=== PATIENT | male | born 1970 | race Hispanic/Latino ===

== ENCOUNTER 2016-12-16 20:46 | Inpatient (IN) | payer OTHER ==
[~2016-12-16] VITALS: Ht 180.3 cm; Wt 110.2 kg
--- NOTE | 2016-12-16 20:58 | NUR ---
RECEIVED 46 YO MALE WITH HX OF IDDM, C/O HE HAS A BLISTER ON THE BOTTOM OF RIGHT FOOT X 3 DAYS. PT POPPED IT 2 DAYS AGO, AND NOW THE BOTTOM OF RIGHT FOOT IS RED AND DISCOLORED, WITH REDNESS GOING UP RIGHT FOOT. PT REPORTS RIGHT ARM FEELS NUMB AND TINGLING
--- NOTE | 2016-12-16 21:44 | ED GENERAL ADULT ---
History of Present Illness General Chief Complaint: Skin Rash/ Abcess Stated Complaint: R FOOT ?INFECTION,REDNESS TO AREA Source: patient Exam Limitations: no limitations Vital Signs & Intake/Output Vital Signs & Intake/Output Vital Signs Date Time Temp Pulse Resp B/P Pulse O2 O2 Flow FiO2 Ox Delivery Rate 12/160 97.2 110 19 142/86 100 Room Air 12/16 2054 96.8 115 18 139/84 98 Room Air Allergies Coded Allergies: No Known Allergies (12/16/16) Triage Note: RECEIVED 46 YO MALE WITH HX OF IDDM, C/O HE HAS A BLISTER ON THE BOTTOM OF RIGHT FOOT X 3 DAYS. PT POPPED IT 2 DAYS AGO, AND NOW THE BOTTOM OF RIGHT FOOT IS RED AND DISCOLORED, WITH REDNESS GOING UP RIGHT FOOT. PT REPORTS RIGHT ARM FEELS NUMB AND TINGLING Triage Nurses Notes Reviewed? yes HPI: Patient is a 46 year old male with past medical history of diabetes presents complaining of right foot infection, right sided weakness and tingling. Patient noticed blister to the right dorsum of the foot 5 days ago. Patient's popped the blister with purulent/bloody drainage. Redness spreading x 2 days up the foot and into the leg. Patient also reports 2 days of paresthesias and weakness to right upper and lower extremities. Occipital headache x4-5 days. Associated chills. Blood sugar labile today with a high of 500 at home. Patient reports polyuria and polydipsia. Denies fevers. (AMBROSE GLORIA) Past History Travel History Traveled to [place] past 21 day No Medical History Any Pertinent Medical History? see below for history Neurological: NONE EENT: NONE Cardiovascular: NONE Respiratory: NONE Gastrointestinal: NONE Hepatic: NONE Renal: nephrolithiasis, chronic kidney disease Musculoskeletal: NONE Psychiatric: NONE Endocrine: diabetes Surgical History Surgical History: non-contributory Psychosocial History What is your primary language French Tobacco Use: Never used ETOH Use: denies use Illicit Drug Use: denies illicit drug use Family History Hx Contributory? No (AMBROSE GLORIA) Review of Systems Review of Systems Constitutional: Reports: chills. Denies: fever. EENTM: Reports: no symptoms. Respiratory: Denies: cough, short of breath. Cardiovascular: Denies: chest pain. GI: Denies: abdominal pain, nausea, vomiting. Genitourinary: Reports: no symptoms. Musculoskeletal: Reports: no symptoms. Skin: Reports: see HPI. Neurological/Psychological: Reports: see HPI. Hematologic/Endocrine: Reports: polyuria, polydipsia. Immunologic/Allergic: Reports: no symptoms. (AMBROSE GLORIA) Physical Exam Physical Exam General Appearance: well developed/nourished, alert, awake Head: atraumatic, normal appearance Eyes: Bilateral: normal appearance, PERRL, EOMI. Ears, Nose, Throat: normal pharynx, normal ENT inspection, hearing grossly normal Neck: normal inspection, supple, full range of motion, no midline tenderness, no appreciable bruit Respiratory: normal breath sounds, chest non-tender, no respiratory distress, lungs clear Cardiovascular: tachycardia, regular rhythm, no appreciable murmur Peripheral Pulses: 2+ dorsalis pedis (R) Gastrointestinal: soft, non-tender Back: normal inspection, normal range of motion Extremities: 3 cm blister to lateral right foot distal 5th metatarsal, erythema extending from blister to the dorsum of the foot with lymphangitis to anterior mid leg Neurologic/Psych: awake, alert, oriented x 3, 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 left upper and lower extremity 5/5 strength, normal sensation Skin: see extremities exam Core Measures ACS in differential dx? No CVA/TIA Diagnosis: No Severe Sepsis Present: No Septic Shock Present: No (AMBROSE GLORIA) Progress Differential Diagnoses I considered the following diagnoses in my evaluation of the patient: cellulitis , abscess, osteomyelitis, cva, dka, hyperosmolar nonketotic state, hyperglycemia , neuropathies Plan of Care: Orders Procedure Date/time Status Consistent Carbohydrate 3 12/17 B Active CBC WITHOUT DIFFERENTIAL 12/17 06 Active BASIC ELECTROLYTES PLUS BUN&CR 12/17 06 Active LACTIC ACID 12/17 0029 Active Saline Lock 12/16 2324 Active Pathway - chart 12/16 2324 Active House Staff 12/16 2324 Active Patient Data 12/16 2252 Active Saline Lock 12/16 2238 Active Misc Message 12/16 2238 Active ED Holding Orders 12/16 2238 Active Vital Signs 12/16 2238 Active Code Status 12/16 2238 Active Admit to inpatient 12/16 2237 Active TOTAL IRON BINDING CAPACITY 12/17 2139 Active GLYCOSYLATED HGB 12/17 2139 Active FERRITIN 12/17 2139 Active SERUM IRON 12/17 2139 Active MIXED VENOUS BLOOD GAS (GEN) 12/16 2128 Complete FingerStick- Glucose 12/16 2128 Active BLOOD CULTURE 12/16 2128 Active TROPONIN LEVEL 12/16 2128 Active SERUM OSMOLALITY 12/16 2128 Active LACTIC ACID 12/16 2128 Active COMPREHENSIVE METABOLIC PANEL 12/16 2128 Active CBC WITHOUT DIFFERENTIAL 12/16 2128 Complete ACETONE 12/16 2128 Active EKG 12/16 2058 Active Lab Add-on Test 12/16 UNK Active VTE Mechanical Prophylaxis 12/16 UNK Active Heat/Cold Therapy 12/16 UNK Active Current Medications Sig/[place] Start time Last Medication Dose Stop Time Status Admin Senna/Docusate Sodium 1 TAB AT BEDTIME 12/17 2199 UNVr (Senokot S) Acetaminophen 650 MG Q6P PRN 12/16 2329 UNVr (Tylenol) Diphenhydramine HCl 25 MG Q6P PRN 12/16 2329 UNVr (Benadryl) Morphine Sulfate 2 MG Q4P PRN 12/16 2329 UNVr (Morphine) Oxycodone HCl 5 MG Q6H PRN 12/16 2329 UNVr (Roxicodone) Prochlorperazine 10 MG Q6P PRN 12/16 2329 UNVr (Compazine) Docusate Sodium 100 MG BID 12/16 2324 UNVr (Colace) Laboratory Tests 12/16/162139: Bicarbonate Actual 24, Mixed VBG pH 7.46 H, Mixed VBG pCO2 34 L, Mixed VBG O2 Saturation 56 H, Carboxyhemoglobin 1.2 L, O2 Concentration % R/A, Anion Gap 9, Estimated GFR > 60, BUN/Creatinine Ratio 24.3, Glucose 384 H, Hemoglobin A1c Pending, Serum Osmolality 296 H, Lactic Acid 1.3, Calcium 8.8, Iron Pending, TIBC Pending, Ferritin Pending, Total Bilirubin 1.0, AST 26, ALT 36, Alkaline Phosphatase 100, Troponin I < 0.01, Total Protein 7.1, Albumin 3.8, Globulin 3.3 , Albumin/Globulin Ratio 1.2, CBC w Diff NO MAN DIFF REQ, RBC 4.31 L, MCV 89.3, MCH 30.6, RDW 13.6, MPV 11.0 H, Gran % 88.6 H, Lymphocytes % 5.7 L, Monocytes % 4.9, Eosinophils % 0.7, Basophils % 0.1, Absolute Granulocytes 11.5 H, Absolute Lymphocytes 0.7 L, Absolute Monocytes 0.6, Absolute Eosinophils 0.1, Absolute Basophils 0, PUBS MCHC 34.3, Phlebotomy Draw Site VENOUS, Acetone Level NEGATIVE Microbiology 12/16 2249 BLOOD: Blood Culture - RECD 12/16 2237 BLOOD: Blood Culture - RECD Results of labs and imaging discussed with patient. Discussed with Dr. Castaneda. Discussed with Dr. Billy for admission (DONTAE JANSEN,AMBROSE) Diagnostic Imaging: Viewed by Me: Radiology Read, CT Scan. Discussed w/RAD: Radiology Read, CT Scan. Radiology Impression: PATIENT: DORA STUART PRESENT AGE: 46 PATIENT ACCOUNT NO: [id number] : 70 LOCATION: [facility] ORDERING PHYSICIAN: AMBROSE JANSEN SERVICE DATE: 12/16/16 EXAM TYPE: CAT - CT HEAD WO IV CONTRAST EXAMINATION: CT HEAD WITHOUT CONTRAST CLINICAL INFORMATION: Right upper and lower extremity paresthesias. Evaluate for stroke. COMPARISON: No relevant prior imaging available. TECHNIQUE: Contiguous axial imaging was performed from the skull base to vertex without intravenous administration of contrast. DLP: 600.71 mGy-cm FINDINGS: There is no acute intracranial hemorrhage or abnormal extra-axial collection. No intracranial mass effect or midline shift. Lateral and third ventricles are normal. No hydrocephalus. Adams-white matter differentiation is preserved and there is no evidence of acute territorial infarct. The calvarium and skull base are intact. Mastoid air cells and middle ear cavities are well aerated. Visualized paranasal sinuses are well-aerated. IMPRESSION: Unremarkable CT scan of the head. No evidence of acute territorial infarct or hemorrhage. DICTATED BY: JIMMIE FERRARA MD DATE/TIME DICTATED:12/16/162241 TRAIN RESERVATION CLERK:NOAM DATE/ TIME TRANSCRIBED:12/16/162241 CONFIDENTIAL, DO NOT COPY WITHOUT APPROPRIATE AUTHORIZATION. <Electronically signed in Other Vendor System> SIGNED BY: JIMMIE FERRARA MD 12/16/162246, PATIENT: DORA STUART PRESENT AGE: 46 PATIENT ACCOUNT NO: [id number] : 70 LOCATION: [facility] ORDERING PHYSICIAN: AMBROSE JANSEN SERVICE DATE: 12/16/16 EXAM TYPE: RAD - XRY-FOOT COMPLETE, R EXAMINATION: XR FOOT, RIGHT CLINICAL INFORMATION: Right foot infection. COMPARISON: No relevant prior imaging available. TECHNIQUE: AP, lateral, and oblique views of the right foot. FINDINGS : There is no acute fracture or dislocation. No worrisome lytic changes to suggest osteomyelitis. Joint spaces are maintained. There is mild nonspecific soft tissue swelling within the distal foot. Monckeberg-type medial arterial vascular calcifications are visualized within the foot indicating a history of diabetes. Mild calcaneal spurring is noted. No retained radiodense foreign body is visualized within the [id number] this examination. IMPRESSION: No evidence of acute fracture or dislocation. Mild swelling of the distal foot. No evidence of worrisome lytic changes to suggest osteomyelitis. DICTATED BY: JIMMIE FERRARA MD DATE/TIME DICTATED:12/16/162238 TRAIN RESERVATION CLERK:NOAM DATE/ TIME TRANSCRIBED:12/16/162238 CONFIDENTIAL, DO NOT COPY WITHOUT APPROPRIATE AUTHORIZATION. <Electronically signed in Other Vendor System> SIGNED BY: JIMMIE FERRARA MD 12/16/162244 Initial ED EKG: Sinus tachycardia 110 bpm, normal axis, normal intervals, no acute st/t wave abnormalities (AMBROSE GLORIA) Departure Departure Time of Disposition: 2243 Disposition: STILL A PATIENT Condition: Stable Clinical Impression Primary Impression: Cellulitis of foot, right Secondary Impressions: Hyperglycemia Referrals: PATIENT HAS NO PRIMARY CARE DR (PCP/Family) Departure Forms: Customer Survey General Discharge Information Admission Note Spoke With: CANDI COLLAZO,JANET Documentation of Exam: Documentation of any treatments & extenuating circumstances including Concerns Regarding Discharge (functional status, medication knowledge or non-compliance, living conditions, etc.) that warrant an admission rather than observation: IV antibiotics, blood sugar control. podiatry/wound care consultation. Patient a poorly controlled diabetic with no established doctor. Concern that with his poorly controlled diabetes and lack of follow up that he will worsen if discharged. (AMBROSE GLORIA) PA/PROBE OPERATOR Co-Sign Statement Statement: ED Attending supervision documentation- [] I saw and evaluated the patient. I have also reviewed all the pertinent lab results and diagnostic results. I agree with the findings and the plan of care as documented in the PA's/PROBE OPERATOR's documentation. [x] I have reviewed the ED Record and agree with the PA's/PROBE OPERATOR's documentation. [] Additions or exceptions (if any) to the PAs/PROBE OPERATOR's note and plan are summarized below: [] (SOTO COLLAZO,MATTHIEU Andrews) Critical Care Note Critical Care Note Critical Care Time: non-applicable (DONTAE JANSEN,AMBROSE)
[2016-12-16 22:01] LABS: ABSOLUTE BASOPHIL COUNT 0 /CUMM (0.0-0.2); ABSOLUTE EOSINOPHIL COUNT 0.1 /CUMM (0.0-0.7); ABSOLUTE GRANULOCYTE CT 11.5 /CUMM (1.4-6.5); ABSOLUTE LYMPH COUNT 0.7 /CUMM (1.2-3.4); ABSOLUTE MONOCYTE COUNT 0.6 /CUMM (0.10-0.60); BASOPHIL % 0.1 % (0.0-2.0); EOSINOPHIL % 0.7 % (0-5); HEMATOCRIT 38.5 % (42-52); MEAN CORPUSCULAR HGB 30.6 PG (27.0-31.0); MEAN CORPUSCULAR HGB CONC 34.3 G/DL (33.0-37.0); MEAN CORPUSCULAR VOLUME 89.3 FL (80.0-94.0); PLATELET COUNT 96 /CUMM (130-400); RBC DISTRIBUTION WIDTH 13.6 % (11.5-14.5); RED BLOOD CELL CT 4.31 /CUMM (4.70-6.10)
[2016-12-16 22:19] LABS: GRANULOCYTE % 88.6 % (42.2-75.2)
--- NOTE | 2016-12-16 22:35 | NUR ---
FIRST SET OF BLOOD CX'S DRAWN
--- NOTE | 2016-12-16 22:45 | RADIOLOGY REPORT ---
EXAMINATION: XR FOOT, RIGHT CLINICAL INFORMATION: Right foot infection. COMPARISON: No relevant prior imaging available. TECHNIQUE: AP, lateral, and oblique views of the right foot. FINDINGS: There is no acute fracture or dislocation. No worrisome lytic changes to suggest osteomyelitis. Joint spaces are maintained. There is mild nonspecific soft tissue swelling within the distal foot. Monckeberg-type medial arterial vascular calcifications are visualized within the foot indicating a history of diabetes. Mild calcaneal spurring is noted. No retained radiodense foreign body is visualized within the [id number] this examination. IMPRESSION: No evidence of acute fracture or dislocation. Mild swelling of the distal foot. No evidence of worrisome lytic changes to suggest osteomyelitis.
--- NOTE | 2016-12-16 22:47 | CT SCAN REPORT ---
EXAMINATION: CT HEAD WITHOUT CONTRAST CLINICAL INFORMATION: Right upper and lower extremity paresthesias. Evaluate for stroke. COMPARISON: No relevant prior imaging available. TECHNIQUE: Contiguous axial imaging was performed from the skull base to vertex without intravenous administration of contrast. DLP: 600.71 mGy-cm FINDINGS: There is no acute intracranial hemorrhage or abnormal extra-axial collection. No intracranial mass effect or midline shift. Lateral and third ventricles are normal. No hydrocephalus. Adams-white matter differentiation is preserved and there is no evidence of acute territorial infarct. The calvarium and skull base are intact. Mastoid air cells and middle ear cavities are well aerated. Visualized paranasal sinuses are well-aerated. IMPRESSION: Unremarkable CT scan of the head. No evidence of acute territorial infarct or hemorrhage.
--- NOTE | 2016-12-16 22:53 | History & Physical ---
MELBA COLLAZO,STACIA 12/16/16 2253: General Information and [facility] MD Statement: I have seen and personally examined DORA STUART and documented this H&P. The patient is a 46 year old M who presented with a patient stated chief complaint of [CELLULITIS]. Source of Information: patient Exam Limitations: no limitations History of Present Illness: This is a 46-year-old male with past medical history for type 2 diabetes, ? hypothyroidism, ?kidney disease who comes in with chief complaint of right lower extremity erythema and tenderness. Patient states that a few days ago he stepped on nail, developed a blister in his right lower extremity and 2 days ago his used a needle to pop the blister and express purulence within. He states that the following day he noted some erythema and tenderness to that area. But on day of admission he noted significantly spreading erythema, and worsening tenderness. Patient states that he has bilateral peripheral neuropathy and he has decreased sensation, which is why he was surprised when he felt pain in his right lower extremity. He has not followed up with a medical provider since last July and states he has run out of many of his medications for the past 3 months. Particularly, he states that he has run out of his long-acting insulin and Victoza. He states that he is only taking his mealtime insulin but that he is taking 30 units 1 at nighttime. He has noted his blood sugars for the past 3 months to range anywhere from 300-500+. He says frequently his monitor is unable to quantify his blood sugars. He endorses polyuria, polydipsia an 80 pound weight loss in the past 8 months. He denies any chest pain, shortness of breath, headache, nausea, vomiting, diarrhea, abdominal or abdominal pain. He does endorse numbness and paresthesias in his right upper and lower extremity. He states the paresthesias and numbness started after his opened the blister. There have been getting worse the past 2 days. He notes that the paresthesias are worst in his palm and the extent to his elbow. Paresthesias in lower extremity are predominantly in his foot and gradually fade towards his knee. Allergies/Medications Allergies: Coded Allergies: No Known Allergies (12/16/16) Home Med list Insulin Detemir (Levemir Flextouch) 100 UNIT/ML (3 ML) INSULN.PEN 100 UNITS SC BEDTIME DM (Reported) Insulin Lispro (Humalog Kwikpen U-100) 100 UNIT/ML INSULN.PEN 10 UNITS SC TID DM (Reported) Pregabalin (Lyrica) 150 MG CAPSULE 1 CAP PO BID NERVE DAMAGE (Reported) Compliance With Home Meds: POOR Past History Travel History Traveled to [place] past 21 day No Medical History Neurological: NONE EENT: NONE Cardiovascular: NONE Respiratory: NONE Gastrointestinal: NONE Hepatic: NONE Renal: nephrolithiasis, chronic kidney disease, hypothyroid Musculoskeletal: NONE Psychiatric: NONE Endocrine: diabetes Surgical History Surgical History: non-contributory Past Family/Social History Psychosocial History ETOH Use: denies use Illicit Drug Use: denies illicit drug use Functional Ability ADLs Independent: dressing, eating, toileting, bathing. Ambulation: independent IADLs Independent: shopping, housework, finances, food prep, telephone, transportation , medication admin. Review of Systems Review of Systems Constitutional: Reports: chills, malaise. Denies: diaphoresis, fever. EENTM: Denies: blurred vision, visual changes. Cardiovascular: Denies: chest pain, orthopena, palpitations, peripheral edema. Respiratory: Denies: cough, short of breath, wheezing. GI: Denies: abdominal pain, diarrhea. Genitourinary: Reports: frequency. Musculoskeletal: Reports: muscle pain, muscle stiffness. Skin: Reports: change in skin color, erythema, lesions, rash. Neurological/Psychological: Reports: no symptoms. Exam & Diagnostic Data Last 24 Hrs of Vital Signs/I&O Vital Signs Date Time Temp Pulse Resp B/P Pulse O2 O2 Flow FiO2 Ox Delivery Rate 12/17 0020 97.3 96 18 132/78 98 Room Air 12/16 2359 Room Air 12/16 2350 97.3 98 18 127/80 98 Room Air 12/160 97.2 110 19 142/86 100 Room Air 12/16 2054 96.8 115 18 139/84 98 Room Air Intake & Output 12/17 0800 12/17 0000 12/16 1600 Intake Total 1000 Output Total Balance 1000 Intake, IV 1000 Patient 110.223 kg 110.223 kg Weight Physical Exam General Appearance Alert, Oriented X3, Cooperative, No Acute Distress Skin patient has erythema, induration and swelling of his right lower extremity, particularly underneath his fifth MTP. In an attempt to express purulence, patient has significant tenderness. He has trach he erythema extending from the dorsal aspect of his foot towards his calf. HEENT Atraumatic, PERRLA, EOMI Neck Supple Cardiovascular Regular Rate, Normal S1, Normal S2, No Murmurs Lungs Normal Air Movement Abdomen Soft, No Tenderness Neurological Normal Speech, Strength at 5/5 X4 Ext, decreased sensation in both lower extremities Extremities see skin above Last 24 Hrs of Labs/Pelon: Laboratory Tests 12/16/160: Bicarbonate Actual 24, Mixed VBG pH 7.46 H, Mixed VBG pCO2 34 L, Mixed VBG O2 Saturation 56 H, Carboxyhemoglobin 1.2 L, O2 Concentration % R/A, Anion Gap 9, Estimated GFR > 60, BUN/Creatinine Ratio 24.3, Glucose 384 H, Hemoglobin A1c Pending, Serum Osmolality 296 H, Lactic Acid 1.3, Calcium 8.8, Iron 34 L, TIBC 238 L, Ferritin 194.0, Total Bilirubin 1.0, AST 26, ALT 36, Alkaline Phosphatase 100, Troponin I < 0.01, Total Protein 7.1, Albumin 3.8, Globulin 3.3 , Albumin/Globulin Ratio 1.2, CBC w Diff NO MAN DIFF REQ, RBC 4.31 L, MCV 89.3, MCH 30.6, RDW 13.6, MPV 11.0 H, Gran % 88.6 H, Lymphocytes % 5.7 L, Monocytes % 4.9, Eosinophils % 0.7, Basophils % 0.1, Absolute Granulocytes 11.5 H, Absolute Lymphocytes 0.7 L, Absolute Monocytes 0.6, Absolute Eosinophils 0.1, Absolute Basophils 0, PUBS MCHC 34.3, Phlebotomy Draw Site VENOUS, Acetone Level NEGATIVE Microbiology 12/16 2249 BLOOD: Blood Culture - RECD 12/16 2237 BLOOD: Blood Culture - RECD Assessment/Plan Assessment: This is a 46-year-old noncompliant type II diabetic with significant past medical hx for neuropathy, questionable CKD and thyroid disorder who recently instrumented a "blister" with resulting cellulitis. Plan Sepsis 2/2 Cellulitis: He meets sepsis criteria with white count and tachycardia. However he is afebrile. His lower extremity is erythematous, tender to touch, warm, with evidence of possible pus under his fifth MTP. As he stated he stepped on a nail and his did instrument the blister with a needle, there is concern for covering tetanus. Given new onset tingling and numbness there was initially concern for intracranial pathology such as CVA. Workup negative. Likely his paresthesias and numbness are secondary to worsening diabetic neuropathy and pain secondary to infection. * Blood cultures * Unasyn * If patient does not improve consider I/D * Tetanus/diphtheria toxoid administered * Pending administration of tetanus immune globulin * Negative lactic acid Diabetes: Patient has been noncompliant with his home regimen as he followed up with a primary care physician in several months. DKA workup negative. Patient slightly hyperosmolar w/ serum osmolality 296. Pt has 80 lb unintentional lb loss; likely 2/2 poor management of DM but needs he needs further work up to rule out other concerning etiologies. * Fingerstick * Sliding scale * IV fluids * Levemir * Lyrica * Follow-up A1c Thrombocytopenia: Platelet count at 96. * Continue to monitor. * avoid heparin ppx Hyponatremia: Patient has sodium 130; however corrected for his blood sugar at 384 actual Na is 134. * Continue to monitor BEP Anemia: Hemoglobin 13.2 and hematocrit 38.5. * Follow-up iron panel * coags * guiac * smear Hypothyroid: Pt told me he has hx of hypothyroidism but is not sure of his work up. No meds on board. However in view of his 80 lb unintentional weight loss further thyroid work up warranted. * TSH * T4 Full code Diabetic diet Chemical DVT prophylaxis As Ranked By This Provider Problem List: 1. Cellulitis of foot, right 2. Hyperglycemia Core Measures/Miscellaneous Acute Coronary Syndrome ACS Diagnosis: No Cerebrovascular Accident CVA/TIA Diagnosis: No Congestive Heart Failure CHF Diagnosis: No Venous Thromboembolism VTE Risk Factors: Acute medical illness, Age > 40 [facility] d/t: No contraindications No VTE Pharm Prophylaxis d/t: No contraindications VTE Diagnosis: No VTE Type: NONE VTE Confirmed by (Test): NONE Severe Sepsis Severe Sepsis Present: No Septic Shock Septic Shock Present: No Miscellaneous Documentation Attending Case Discussed With: CANDI COLLAZO,ZAYShelbi Primary Care Physician: PATIENT HAS NO PRIMARY CARE DR Patient sees these Specialists UNKNOWN Level of Patient Care: General Medicine MAXIM COLLAZO,[facility] 12/16/16 2318: Resident Review Statement Resident Statement: examined this patient, discussed with public relations intern, agreed with public relations intern, discussed with family, reviewed EMR data (avail), discussed with nursing , discussed with case mgmt, reviewed images, amended to note Other Findings: Dora is a 46-year-old man with a medical history of type 1 diabetes, chronic kidney disease obesity kidney stones, chronic pain. Presents with progressive erythema on her right foot after he developed blisters 3 days ago, and then his subsequently ruptured blister about 2 days ago. He also endorses some right-sided numbness and tingling in the arm. He reports level blood sugars in recent days as well as polyuria and polydipsia.. At present he is afebrile temperature is 97.2F, he is tachycardic with heart rate ranging from 110-115 bpm, tachypnea respiratory rate of 20. Blood pressure is 142/86 mmHg, and he is 100% on room air. Labs notable for elevated white count 13,000, hemoglobin of 13 with MCV of 89. Thrombocytopenia with platelets of 96,000. Glucose elevated at 384. Stones are negative. CAT scan of the head did not demonstrate any acute infarct. X-ray of the foot did demonstrate mild soft tissue swelling suggestive of cellulitis in the distal foot; no evidence of acute fracture or dislocation of the joint. Additionally there is are no radiographic changes suggestive of osteomyelitis. - Problems - Cellulitis Type 2 Diabetes Thrombocytopenia Plan: Unasyn 3 g every 6 hours Tetanus toxoid and Immunoglobulin Await blood cultures Levemir 10U to use every 12 hours NovoLog sliding scale with 7 units pre-meal insulin Check hemoglobin A1c Avoid heparin products - low plts. DVT prophylaxis Alps Full code CANDI COLLAZO, [facility] 12/16/16 4273: Attending MD Review Statement Attending Statement Attending MD Statement: examined this patient, discuss w/resident/PA/INSTRUCTOR PAINTING, agreed w/resident/PA/INSTRUCTOR PAINTING Attending Assessment/Plan: 46 yo obese M with uncontrolled T1DM, hypothyroidism, ?CKD from diabetes, is here with right foot cellulitis. Patient recently moved from [place] about 5 weeks back, and has no PCP. He is on disability and reports he did not refill levemir and thyroid meds for over 2 months. His sugars have been over 500. He recollects his right foot (lateral aspect) being struck by a nail while doing yard work last week, then about 5 days back he noted a blister which his tried to pop out and noticed purulent drainage. He also has been walking long distances as he did not have a car until now. Chills+. Over past two day, he developed erythema and swelling to the right foot, with pain extending into his leg. Of note, he has peripheral neuropathy and is supposed to be on lyrica. He c /o right hand tingling and numbness. Vitals stable, except for tachycardia. Labs: WBC 13, Plt 96 (no baseline available), Na 130, glucose 384, not in DKA. Head CT neg. Foot Xray: no fracture , nothing to suggest osteomyelitis. EKG: Sinus tachycardia. Admitting for sepsis (leukocytosis, tachycardia) 2/2 right foot cellulitis. Panculture, elevated right foot, IV Unasyn, await blood cultures to taper antibiotics. Tetanus toxoid. Thrombocytopenia 2/2 sepsis. Check coags and smear. Uncontrolled diabetes accucheks, resume levemir and novolog. Check HbA1c. Consider Endo consult if blood sugars persistently high. DVT ppx Alps. Full code. Please confirm his meds and restart.
--- NOTE | 2016-12-16 23:30 | NUR ---
Emergency Dept [facility] Admit Note: To be admitted to [facility] by DR. CHRISTOPHER with CELLULITITS as the diagnosis, [id number]. Nursing Computer Service Technician and admitting notified 12/16/16 at 230
[2016-12-16] MEDS ORDERED: LYRICA150 M1 PO (23:52)
[2016-12-16] MEDS ORDERED: LEVEMIR FL100 UNIT/1 SC (23:53)
[2016-12-16] MEDS ORDERED: HUMALOG KW100 UNIT/1 SC (23:53)
--- NOTE | 2016-12-16 23:53 | Admission Certification ---
Admission Certification Certification Statement - As attending physician, I certify that at the time of - admission, based on clinical presentation, severity of - symptoms, need for further diagnostic testing and - therapeutic interventions, and risk of adverse outcomes - without in-hospital treatment, in my clinical assessment, - this patient requires an acute hospital stay for a minimum - of two nights or longer. I have also considered psychsocial - factors such as support system, advanced age, financial - issues, cognitive issues, and failed out-patient treatments, - past re-admission history, safety of patient, and lack of - compliance as applicable. Specific rationale supporting this admission is: Sepsis 2/2 right foot cellulitis, uncontrolled diabetes.
--- NOTE | 2016-12-16 23:58 | NUR ---
PATIENT EVALUATED BY HOUSE STAFF, CELLULITIS ON R FOOT/ANKLE/HUNTER MARKED W/ SKIN MARKER BY HOUSE STAFF. SITE REMAINS HOT TO TOUCH AND RED, NO SKIN BREAKDOWN NOTED. ASSESSMENT COMPLETED BY THIS RN, PATIENT ALERT AND ORIENTED X 3, PAIN 9/10 AT THIS TIME, AWARE OF PERCOCET ORDER, AGREEABLE TO PERCOCET.
--- NOTE | 2016-12-17 00:13 | NUR ---
SPOKE W/ ENRIKE EVENING RN, PER ENRIKE, PATIENT WAS MEDICATED W/ INSULIN PER EMAR AT SCHEDULLED TIME.
--- NOTE | 2016-12-17 00:19 | NUR ---
PATIENT CHANGING INTO GOWN AT THIS TIME.
[2016-12-17 00:20] VITALS: BP 132/78
--- NOTE | 2016-12-17 00:20 | NUR ---
REPORT RECIEVED FROM MERRICK ROQUE IN ED. PT ARRIVED TO FLOOR VIA WHEELCHAIR VIA DISTRIBUTION. ON ROOM AIR. STATES PAIN IS WELL CONTROLLED AT THIS TIME. VSS. REDNESS TO R FOOT, ANKLE, AND HUNTER, MARKED WITH SKIN MARKER IN THE ED. SKIN IS INTACT. ORIENTED PT TO ROOM AND CALL BUTTON, WILL CONTINUE TO MONITOR.
--- NOTE | 2016-12-17 00:24 | NUR ---
REPORT CALLED TO KELTON ROQUE ON FLOOR.
--- NOTE | 2016-12-17 00:28 | NUR ---
PATIENT AMBULATORY TO BATHROOM W/ STABLE GAIT NOTED.
[2016-12-17 06:52] VITALS: BP 127/78
--- NOTE | 2016-12-17 07:46 | PN- Housestaff ---
WALDO GONZALEZ MD 12/17/16 0745: Subjective Follow-up For: Right lower extremity puncture wound Right lower extremity cellulitis Subjective: Patient seen and examined. He is seen resting comfortably sitting in bed. He Appears to be in no acute distress. He reports sleeping well last night but admits to waking up feeling cool/clammy that he attributes to his sugars possibly being "highs/low". He denies any pain in the right lower extremity, but admits to extensive peripheral neuropathy. He believes the rash appears better today and denies any previous purulent drainage. Additionally he denies any blurred/double vision, lightheadedness/dizziness, headache, fever, chills, chest pain, palpitations, shortness breath, cough, nausea, vomiting, diarrhea, new numbness/tingling. No overnight events reported. Review of Systems Constitutional: Reports: see HPI. Objective Last 24 Hrs of Vital Signs/I&O Vital Signs Date Time Temp Pulse Resp B/P Pulse O2 O2 Flow FiO2 Ox Delivery Rate 12/17 0943 98.8 12/17 0755 99.4 12/17 0755 99.4 12/17 0721 100.0 12/17 0652 99.2 85 20 127/78 95 12/17 0020 97.3 96 18 132/78 98 Room Air 12/16 2359 Room Air 12/16 2351 97.3 98 18 127/80 98 Room Air 12/16 2250 97.2 110 19 142/86 100 Room Air 12/16 2055 96.8 115 18 139/84 98 Room Air Intake & Output 12/17 1600 12/17 0800 12/17 0000 Intake Total 1430 Output Total Balance 1430 Intake, IV 1130 Intake, Oral 300 Patient 110.223 kg 110.223 kg Weight Physical Exam General Appearance: Alert, Oriented X3, Cooperative, No Acute Distress Other Physical Findings: General -well-developed, well-nourished middle-aged man in no acute distress HEENT - NCAT, PERRL, EOMI, anicteric sclera Cardio - S1, S2 w/o murmurs/gallops/rubs Resp -normal airflow bilaterally, right-sided inspiratory wheezing GI - soft, nontender, nondistended, bowel sounds present Neuro - Awake and alert, CN II - XII grossly intact Extremities -normal pulses, no cyanosis/clubbing/edema, right lower extremity with extensive tracking erythematous/indurated rash surrounded with skin marker and no obvious drainage, small well-healed puncture wound without any obvious retained material, no deformity Current Medications: Current Medications Sig/[place] Start time Last Medication Dose Route Stop Time Status Admin Acetaminophen 650 MG Q6P PRN 12/16 2330 AC 12/17 PO 0721 Ampicillin Sodium/ 3,000 MG Q6 12/17 0600 DC 12/17 Sulbactam Sodium IV 1140 Sodium Chloride 100 ML Ampicillin Sodium/ 0 .STK-MED ONE 12/16 2254 DC Sulbactam Sodium .ROUTE Ampicillin Sodium/ 3,000 MG ONCE ONE 12/160 DC 12/16 Sulbactam Sodium IV 12/16 2228 2300 Sodium Chloride 100 ML Ceftazidime 1,000 MG IQ8 12/17 1600 AC IV Diphenhydramine HCl 25 MG Q6P PRN 12/16 2330 AC IV Docusate Sodium 100 MG BID 12/16 2325 AC PO Influenza Virus 0.5 ML ONCE ONE 12/17 1000 DC Vaccine IM 12/17 1001 Insulin Aspart 0 TIDAC 12/17 0800 AC 12/17 SC 1301 Insulin Detemir 10 UNITS BID 12/17 1000 AC 12/17 SC 0800 Insulin Human Regular 8 UNITS ONCE ONE 12/16 2230 DC 12/16 SC 12/16 223 2300 Morphine Sulfate 2 MG Q4P PRN 12/16 2330 AC IV Oxycodone HCl 5 MG Q6P PRN 12/16 2330 AC 12/17 PO 0635 Oxycodone/ 0 .STK-MED ONE 12/17 0029 DC Acetaminophen PO Oxycodone/ 1 TAB ONCE ONE 12/16 2315 DC 12/17 Acetaminophen PO 12/16 2316 0028 Patient Medication 1 ED .STK-MED ONE 12/17 1403 DC Teaching ED 12/17 1404 Potassium Chloride 40 MEQ ONCE ONE 12/17 1345 DC PO 12/17 1346 Pregabalin 150 MG BID 12/17 0001 AC 12/17 PO 0800 Prochlorperazine 10 MG Q6P PRN 12/16 2330 AC IV Senna/Docusate Sodium 1 TAB AT BEDTIME 12/17 2200 AC PO Sodium Chloride 1,000 ML BOLUS ONE 12/16 2130 DC 12/16 IV 12/16 2228 2300 Tetanus Immune 500 UNITS ONCE ONE 12/17 14 DC Globulin IM 12/17 001 Tetanus/Diphtheria 0.5 ML ONCE ONE 12/17 14 DC 12/17 Toxoids Adsorbed IM 12/18 15 0258 Last 24 Hrs of Lab/Pelon Results Last 24 Hrs of Labs/Mics: Laboratory Tests 12/17/16 0712: Lactic Acid 1.0 12/17/16 0712: Anion Gap 8, Estimated GFR > 60, BUN/Creatinine Ratio 17.5, TSH 5.610 H, Thyroxine (T4) 8.2, CBC w Diff NO MAN DIFF REQ, RBC 3.98 L, MCV 89.7, MCH 30.5, RDW 13.6, MPV 10.5 H, Gran % 78.8 H, Lymphocytes % 12.8 L, Monocytes % 5.7, Eosinophils % 2.4, Basophils % 0.3, Absolute Granulocytes 6.7 H, Absolute Lymphocytes 1.1 L, Absolute Monocytes 0.5, Absolute Eosinophils 0.2, Absolute Basophils 0, PUBS MCHC 34.0 12/16/16 2140: Bicarbonate Actual 24, Mixed VBG pH 7.46 H, Mixed VBG pCO2 34 L, Mixed VBG O2 Saturation 56 H, Carboxyhemoglobin 1.2 L, O2 Concentration % R/A, Anion Gap 9, Estimated GFR > 60, BUN/Creatinine Ratio 24.3, Glucose 384 H, Hemoglobin A1c 11.0 H, Serum Osmolality 296 H, Lactic Acid 1.3, Calcium 8.8, Iron 34 L, TIBC 238 L, Ferritin 194.0, Total Bilirubin 1.0, AST 26, ALT 36, Alkaline Phosphatase 100, Troponin I < 0.01, Total Protein 7.1, Albumin 3.8, Globulin 3.3 , Albumin/Globulin Ratio 1.2, CBC w Diff NO MAN DIFF REQ, RBC 4.31 L, MCV 89.3, MCH 30.6, RDW 13.6, MPV 11.0 H, Gran % 88.6 H, Lymphocytes % 5.7 L, Monocytes % 4.9, Eosinophils % 0.7, Basophils % 0.1, Absolute Granulocytes 11.5 H, Absolute Lymphocytes 0.7 L, Absolute Monocytes 0.6, Absolute Eosinophils 0.1, Absolute Basophils 0, PUBS MCHC 34.3, Phlebotomy Draw Site VENOUS, Acetone Level NEGATIVE Microbiology 12/16 2249 BLOOD: Blood Culture - RES 12/16 2237 BLOOD: Blood Culture - RES Assessment/Plan Assessment: Patient has improved leukocytosis while maintained on intravenous Unasyn. He remains afebrile overnight. Given his history of present illness that he stepped on a nail that penetrated a rubber shoe is Unasyn was discontinued and converted to venous ceftazidime for pseudomonal coverage. An MRI of his right foot will be obtained to further characterize any possible retained material, occult fracture, or dissemination of infection to the bone such as osteomyelitis. His platelets are low for which he is being followed off of subcutaneous heparin, DVT prophylaxis is also being deferred for his right lower extremity swelling/active infection. Ambulation is being encouraged as to defer any development of a deep venous thrombosis. Right lower extremity cellulitis Patient reports this past Thursday (12/14/16) stepping on a shelli nail that penetrated his rubber sandal and pierced his foot approximately 1.5 cm. He reports walking "about 3 miles" after this happened and subsequently developing associated blistering. His reportedly drained the blisters with a sterile safety pin. Patient initially started on Unasyn prior to being converted to Fortaz. Patient received tetanus vaccination and intravenous immunoglobulin. -General medicine -Unasyn discontinued -Ceftazidime 1 g IV every 8 hours -Follow-up blood cultures -Follow-up MRI foot Sepsis: Resolved Patient meets criteria for sepsis upon initial evaluation with leukocytosis and elevated temperature with the suspected location of infection being the right lower extremity cellulitis. Lactic acid was normal. Patient received 1 L of normal saline. Insulin-dependent diabetes mellitus/diabetic peripheral neuropathy Patient was reportedly receiving his hypoglycemic medications for PCP in [place] , however has run out of many of his medications and has been taking them off schedule. -Accu-Cheks 3 times a day before meals/at bedtime -Hold oral hypoglycemics -NovoLog sliding scale insulin -Levemir 10 units SC twice a day -Pregabalin 150 mg by mouth twice a day -HbA1c: 11.0 Pain plan-acetaminophen/oxycodone/morphine Diet-Diabetic diet DVT prophylaxis-ambulation, contraindication to pharmacologic/mechanical CODE STATUS-full code Problem List: 1. Cellulitis of foot, right Pain Ratin Pain Location: None Pain Goal: Remain pain free Pain Plan: As noted in plan Tomorrow's Labs & Rationales: CBC - cellulitis OLEG ARREDONDO MD 12/17/162044: Attending MD Review Statement Attending Statement Attending MD Statement: examined this patient, discuss w/resident/PA/PILOT BOAT OPERATOR, agreed w/resident/PA/PILOT BOAT OPERATOR, reviewed EMR data (avail), discussed with nursing, reviewed images, amended to note Attending Assessment/Plan: The patient was seen and discussed with house staff. Agree with the plan of care as outlined. The patient had nail injury through rubber sole of sandal and thus need to consider Pseudomonas as possible pathogen. Antibiotic changed as noted. MRI showing marked soft tissue edema w/o abscess or osteomyelitis. Patient has diabetic neuropathy and will obtain Podiatry consult from Dr. Gandhi for OP follow-up. Continue current care and follow foot exam.
[2016-12-17 08:13] LABS: ABSOLUTE BASOPHIL COUNT 0 /CUMM (0.0-0.2); ABSOLUTE EOSINOPHIL COUNT 0.2 /CUMM (0.0-0.7); ABSOLUTE GRANULOCYTE CT 6.7 /CUMM (1.4-6.5); ABSOLUTE LYMPH COUNT 1.1 /CUMM (1.2-3.4); ABSOLUTE MONOCYTE COUNT 0.5 /CUMM (0.10-0.60); BASOPHIL % 0.3 % (0.0-2.0); EOSINOPHIL % 2.4 % (0-5); GRANULOCYTE % 78.8 % (42.2-75.2); HEMATOCRIT 35.7 % (42-52); MEAN CORPUSCULAR HGB 30.5 PG (27.0-31.0); MEAN CORPUSCULAR VOLUME 89.7 FL (80.0-94.0); MEAN PLATELET VOLUME 10.5 FL (7.4-10.4); PLATELET COUNT 83 /CUMM (130-400); RBC DISTRIBUTION WIDTH 13.6 % (11.5-14.5); RED BLOOD CELL CT 3.98 /CUMM (4.70-6.10); WHITE BLOOD CELL COUNT 8.4 /CUMM (4.8-10.8)
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
--- NOTE | 2016-12-17 14:27 | NUR ---
NURSING NOTE: PT LEFT FLOOR VIA STRETCHER WITH DISTIRBUTION FOR MRI OF FOOT PER MD ORDER. PT AWAKE, A/OX3, IV PATENT SL. PT DENIES COMPLAINTS. CONT TO MONITOR. AWAIT RETURN TO FLOOR, WILL GIVE REPORT TO NEXT SHIFT RN. TICKET TO RIDE COMPLETE.
[2016-12-17 14:40] VITALS: BP 104/60
--- NOTE | 2016-12-17 15:15 | NUR ---
NURSING NOTE: PT BACK TO FLOOR VIA STRETCHER WITH DISTRIUTION FROM MRI, SETTLED INTO BED, WILL MEDICATE FOR PAIN, DENIES OTHER COMPLAINTS
--- NOTE | 2016-12-17 15:28 | NUR ---
NURSING NOTE: TETATUS GLOBULIN GIVEN PER MD ORDER. 2 SYRINGES OF 250UNITS GIVEN, ONE TO RIGHT DELTOID, ONE TO LEFT DELTOID, PT TOLERATED WELL. CONT TO MONITOR
--- NOTE | 2016-12-17 17:30 | MRI REPORT ---
EXAMINATION: MRI RIGHT FOOT WITHOUT CONTRAST CLINICAL INFORMATION: Status post puncture wound with nail. Right lower extremity cellulitis. COMPARISON: 12/16/2016 (radiographs). TECHNIQUE: Multiplanar MR imaging was obtained through the right foot without contrast material on a 1.5 Jennifer magnet. Examination is somewhat limited by patient motion. Multiple sequences were repeated. FINDINGS: Marked subcutaneous edema signal and soft tissue swelling are present at the dorsum of the forefoot and midfoot. No discrete fluid collections are identified. There is edema signal and mild atrophy within the intrinsic foot musculature, most typical of diabetes. Bone marrow signal is normal. No areas of intraosseous edema are identified. Sensitivity for small foci of intramedullary edema is limited by the motion artifact. No joint effusions. No general fluid collections are identified. Tendons are intact. No tenosynovitis. Plantar fascia is unremarkable. No metallic foreign bodies are identified. IMPRESSION: Marked subcutaneous edema and soft tissue swelling at the dorsum of the right forefoot. No evidence of underlying osteomyelitis or abscess. Sensitivity for small abnormalities is limited by the motion artifact.
[2016-12-17 21:52] VITALS: BP 118/78
--- NOTE | 2016-12-17 22:58 | NUR ---
ALERT AND ORIENTED X 3. VITAL SIGNS STABLE. DENIES CHEST PAIN. + PULSES ON ROOM AIR. STEADY GAIT. REDNESS NOTED TO R FOOT. MEDICATION GIVEN FOR PAIN. PATIENT RESTING COMFORTABLY AT THIS TIME. WILL CONTINUE TO MONITOR
[2016-12-18 07:09] VITALS: BP 110/74
--- NOTE | 2016-12-18 07:13 | PN- Housestaff ---
WALDO GONZALEZ MD 12/18/16 0713: Subjective Follow-up For: Right lower extremity cellulitis Right lower extremity puncture wound Subjective: Patient seen and examined. He is seen lying upright in bed resting comfortably. He appears to be in no acute distress. He reports that his foot appears to be well-healing with the rash markedly improved since Thursday. He reports that overnight the blister on the right lateral aspect of his foot spontaneously drained a clear serosanguineous fluid. He reports minimal pain in the right lower extremity. Otherwise she denies any headache, fever, chills, chest pain, palpitations, shortness breath, cough, nausea, vomiting, diarrhea. No overnight events reported. Review of Systems Constitutional: Reports: see HPI. Objective Last 24 Hrs of Vital Signs/I&O Vital Signs Date Time Temp Pulse Resp B/P Pulse O2 O2 Flow FiO2 Ox Delivery Rate 12/18 1413 98.5 12/18 0709 99.1 87 18 110/74 94 Room Air 12/17 2152 99.4 88 17 118/78 95 Intake & Output 12/18 1600 12/18 0800 12/18 0000 Intake Total 950 240 800 Output Total Balance 950 240 800 Intake, IV 50 Intake, Oral 900 240 800 Number 0 1 Bowel Movements Physical Exam General Appearance: Alert, Oriented X3, Cooperative, No Acute Distress Other Physical Findings: General -well-developed, well-nourished middle-aged man in no acute distress HEENT - NCAT, PERRL, EOMI, anicteric sclera Cardio - S1, S2 w/o murmurs/gallops/rubs Resp -clear to auscultation bilaterally GI - soft, nontender, nondistended, bowel sounds present Neuro - Awake and alert, CN II - XII grossly intact Extremities -normal pulses, no cyanosis/clubbing/edema, right lower extremity with extensive tracking erythematous/indurated rash surrounded with skin marker and no obvious drainage, small well-healed puncture wound without any obvious retained material, no deformity, bandage in place with scant amount of serosanguineous drainage Current Medications: Current Medications: Current Medications Sig/[place] Start time Last Medication Dose Route Stop Time Status Admin Acetaminophen 650 MG Q6P PRN 12/16 2330 AC 12/17 PO 0721 Ceftazidime 1,000 MG IQ8 12/17 1600 AC 12/18 IV 0741 Diphenhydramine HCl 25 MG Q6P PRN 12/16 2330 AC IV Docusate Sodium 100 MG BID 12/16 2325 AC 12/18 PO 0924 Insulin Aspart 0 TIDAC 12/17 0800 AC 12/18 SC 1242 Insulin Detemir 10 UNITS BID 12/17 1000 AC 12/18 SC 0924 Morphine Sulfate 2 MG Q4P PRN 12/16 2330 AC 12/18 IV 0116 Oxycodone HCl 5 MG Q6P PRN 12/16 2330 AC 12/18 PO 0741 Pregabalin 150 MG BID 12/17 0001 AC 12/18 PO 0925 Prochlorperazine 10 MG Q6P PRN 12/16 233 AC IV Senna/Docusate Sodium 1 TAB AT BEDTIME 12/17 2199 AC 12/17 PO 2131 Last 24 Hrs of Lab/Pelon Results Last 24 Hrs of Labs/Mics: Laboratory Tests 12/18/16 0636: CBC w Diff NO MAN DIFF REQ, RBC 3.77 L, MCV 89.1, MCH 30.5, RDW 13.6, MPV 10.2, Gran % 68.9, Lymphocytes % 20.8, Monocytes % 7.3, Eosinophils % 2.7, Basophils % 0.3, Absolute Granulocytes 5.6, Absolute Lymphocytes 1.7, Absolute Monocytes 0.6 , Absolute Eosinophils 0.2, Absolute Basophils 0, PUBS MCHC 34.3 Assessment/Plan Assessment: Patient remains afebrile without leukocytosis while maintained on intravenous ceftazidime. His right lower extremity cellulitis is clinically improving with regression of the erythematous rash. Patient feels well today and safe to be discharged home. He is to be discharged on oral ciprofloxacin to complete a 10 day total antibiotic course and instruction to follow-up at the [facility] for further management and evaluation of his diabetes, polyuria/ polydipsia, and thrombocytopenia. Right lower extremity cellulitis Patient reports this past Thursday (12/14/16) stepping on a shelli nail that penetrated his rubber sandal and pierced his foot approximately 1.5 cm. He reports walking "about 3 miles" after this happened and subsequently developing associated blistering. His reportedly drained the blisters with a sterile safety pin. Patient initially started on Unasyn prior to being converted to Fortaz. Patient received tetanus vaccination and intravenous immunoglobulin. -General medicine -Ceftazidime 1 g IV every 8 hours -Follow-up blood cultures -Follow-up MRI foot Sepsis: Resolved Patient meets criteria for sepsis upon initial evaluation with leukocytosis and elevated temperature with the suspected location of infection being the right lower extremity cellulitis. Lactic acid was normal. Patient received 1 L of normal saline. Insulin-dependent diabetes mellitus/diabetic peripheral neuropathy Patient was reportedly receiving his hypoglycemic medications for PCP in [place] , however has run out of many of his medications and has been taking them off schedule. -Accu-Cheks 3 times a day before meals/at bedtime -Hold oral hypoglycemics -NovoLog sliding scale insulin -Levemir 10 units SC twice a day -Pregabalin 150 mg by mouth twice a day -HbA1c: 11.0 Pain plan-acetaminophen/oxycodone/morphine Diet-Diabetic diet DVT prophylaxis-ambulation, contraindication to pharmacologic/mechanical CODE STATUS-full code Problem List: 1. Cellulitis of foot, right Pain Ratin Pain Location: Right lower extremity Pain Goal: Remain pain free Pain Plan: See assessment Tomorrow's Labs & Rationales: None DINA COLLAZO,CHAPO 12/18/16 1502: Attending MD Review Statement Attending Statement Attending MD Statement: examined this patient, discuss w/resident/PA/HAND LAUNDERER, agreed w/resident/PA/HAND LAUNDERER, reviewed EMR data (avail), discussed with nursing, discussed with case mgmt, reviewed images Attending Assessment/Plan: Patient is doing well. He is eager to leave today. We spoke to patient at length and explained to him importance of close outpatient follow-up. He is going to follow up with Dr. Alfaro in the primary care clinic. We also gave him insulin, both Levemir and lispro on discharge. Given that he is clinically improved in terms of the erythema and other clinical signs and the MRI negative for osteomyelitis. We are going to send him out on by mouth Cherry. He is going to complete a total of 10 days for a cellulitis around with a nail puncture wound. There was no pus per nurse and patient. I explained to him at length that his thrombocytopenia needs an outpatient workup. I also explained that he needs close follow-up for uncontrolled diabetes with clear-cut diabetic follow- up.
[2016-12-18 08:03] LABS: ABSOLUTE BASOPHIL COUNT 0 /CUMM (0.0-0.2); ABSOLUTE EOSINOPHIL COUNT 0.2 /CUMM (0.0-0.7); ABSOLUTE GRANULOCYTE CT 5.6 /CUMM (1.4-6.5); ABSOLUTE LYMPH COUNT 1.7 /CUMM (1.2-3.4); ABSOLUTE MONOCYTE COUNT 0.6 /CUMM (0.10-0.60); BASOPHIL % 0.3 % (0.0-2.0); EOSINOPHIL % 2.7 % (0-5); GRANULOCYTE % 68.9 % (42.2-75.2); HEMATOCRIT 33.6 % (42-52); MEAN CORPUSCULAR HGB 30.5 PG (27.0-31.0); MEAN CORPUSCULAR HGB CONC 34.3 G/DL (33.0-37.0); MEAN CORPUSCULAR VOLUME 89.1 FL (80.0-94.0); MEAN PLATELET VOLUME 10.2 FL (7.4-10.4); PLATELET COUNT 98 /CUMM (130-400); RBC DISTRIBUTION WIDTH 13.6 % (11.5-14.5); RED BLOOD CELL CT 3.77 /CUMM (4.70-6.10); WHITE BLOOD CELL COUNT 8.1 /CUMM (4.8-10.8)
--- NOTE | 2016-12-18 09:06 | PN- Student ---
Subjective Subjective: Pt was laying comfortably in bed. He endorsed 9/10 pain overnight for which he received morphine. He said a blister popped overnight and was oozing - nurse bandaged it up with prevent dripping. Pressure of the blanket on his injured foot still is still causing him pain so he leaves his leg exposed. Pt was informed of his MRI results and that he will receive flu vax today. The cellulitis which had been creeping up to about mcc up his chin is drastically improved with erythema localized to the puncture site on his R foot. Pt says the current insulin regimen is working well for him. He also has improved parastesias in his hands - he is excited he can grab objects again with no pins/needles sensation. Complained of a little soreness in each arm since receiving the Tetanus toxoid and IG yesterday. Mood and affect are positive and is determined to keep up with his post-discharge appointments and maintain DM foot care. Objective Objective: PE: Gen: NAD, A&O x3 Card: S1 S2, no M/G/R appreciated Pulm: good airflow B/L, inspiratory wheezing in R lung Abd: BS present, no tenderness to palpation Extremity: R foot has bandage around tarsophalangeal joints 3-5. Dark red erythema localized to dorsum on foot - no warmth. Black outline of original cellulitis border still present. Neuro: CN II-XII grossly intact Results Results: Laboratory Tests 12/18/16 0636: CBC w Diff NO MAN DIFF REQ, RBC 3.77 L, MCV 89.1, MCH 30.5, RDW 13.6, MPV 10.2, Gran % 68.9, Lymphocytes % 20.8, Monocytes % 7.3, Eosinophils % 2.7, Basophils % 0.3, Absolute Granulocytes 5.6, Absolute Lymphocytes 1.7, Absolute Monocytes 0.6 , Absolute Eosinophils 0.2, Absolute Basophils 0, PUBS MCHC 34.3 12/17/16 0712: Lactic Acid 1.0 12/17/16 0712: Anion Gap 8, Estimated GFR > 60, BUN/Creatinine Ratio 17.5, TSH 5.610 H, Thyroxine (T4) 8.2, CBC w Diff NO MAN DIFF REQ, RBC 3.98 L, MCV 89.7, MCH 30.5, RDW 13.6, MPV 10.5 H, Gran % 78.8 H, Lymphocytes % 12.8 L, Monocytes % 5.7, Eosinophils % 2.4, Basophils % 0.3, Absolute Granulocytes 6.7 H, Absolute Lymphocytes 1.1 L, Absolute Monocytes 0.5, Absolute Eosinophils 0.2, Absolute Basophils 0, PUBS MCHC 34.0 12/16/160: Bicarbonate Actual 24, Mixed VBG pH 7.46 H, Mixed VBG pCO2 34 L, Mixed VBG O2 Saturation 56 H, Carboxyhemoglobin 1.2 L, O2 Concentration % R/A, Anion Gap 9, Estimated GFR > 60, BUN/Creatinine Ratio 24.3, Glucose 384 H, Hemoglobin A1c 11.0 H, Serum Osmolality 296 H, Lactic Acid 1.3, Calcium 8.8, Iron 34 L, TIBC 238 L, Ferritin 194.0, Total Bilirubin 1.0, AST 26, ALT 36, Alkaline Phosphatase 100, Troponin I < 0.01, Total Protein 7.1, Albumin 3.8, Globulin 3.3 , Albumin/Globulin Ratio 1.2, CBC w Diff NO MAN DIFF REQ, RBC 4.31 L, MCV 89.3, MCH 30.6, RDW 13.6, MPV 11.0 H, Gran % 88.6 H, Lymphocytes % 5.7 L, Monocytes % 4.9, Eosinophils % 0.7, Basophils % 0.1, Absolute Granulocytes 11.5 H, Absolute Lymphocytes 0.7 L, Absolute Monocytes 0.6, Absolute Eosinophils 0.1, Absolute Basophils 0, PUBS MCHC 34.3, Phlebotomy Draw Site VENOUS, Acetone Level NEGATIVE Microbiology 12/16 2249 BLOOD: Blood Culture - RES 12/16 2237 BLOOD: Blood Culture - RES R Foot MRI: Marked subcutaneous edema and soft tissue swelling at the dorsum of the right forefoot. No evidence of underlying osteomyelitis or abscess. Sensitivity for small abnormalities is limited by the motion artifact. Assessment/Plan Assessment: 46yo male with a h/o of T2DM and poor medical compliance who presented to the ED on 12/16 2 days after stepping on a metal nail that resulted in a blister and rising cellulitis of the R leg. Inclidental thrombocytopenia (96,000-->83,000) was discovered and is being managed conservatively. Plan: Puncture Wound & Cellulitis - IV Unasyn switched to IV caftazadime for pseduomonas coverage after learning he was wearing a rubber-soled shoe when he stepped on the nail - cellulitis limited to site of punture but continues to ooze - blood cultures show no growth after 2 days - Nursing attending to wound rebandaging Pain - oxycodone/acetaminophen - IV morphine to be d/c today Sepsis - clinically andobjectively improved - lactic acid = IDDM with peripheral neuropathy - insulin aspart sliding scale - insuline levemir 10 U BID SC - Accuchecks before meals and at bedtime: 217-312 in last 24 hours - HA1c = - pt had appointment at OP clinic for f/u - Pregabalin 150 PO BID for parasthesias - pt to f/u at OP clinic TCP - not receiving heparin Diet - regular diet DVT ppx - currently not receiving manual or medical tx d/t - ambulation encouraged Code Status - full code
[2016-12-18] MEDS ORDERED: LANCETS1 EACH SC ×2 (10:20→13:49)
[2016-12-18] MEDS ORDERED: GLUCOSE TEST S1 EACH SC ×2 (10:21→13:49)
[2016-12-18] MEDS ORDERED: INSULIN SYRING1 EA30 SC ×2 (10:24→13:49)
--- NOTE | 2016-12-18 10:29 | Patient Discharge Instructions ---
Discharge Instructions General Discharge Information Special Instructions: Take Ciprofloxacin as directed, do not miss a dose. Be sure to finish this medication. Call the [facility] to establish a primary care visit. Schedule an appointment with Dr. Clyde Sears for continuity of care. Take your new insulin as directed, be sure to test your insulin 30 minutes before meals. Acute Coronary Syndrome Inclusion Criteria At DC or during hospital stay patient has or had the following: ACS DIAGNOSIS No Discharge Core Measures Meds if any: Prescribed or Continued at Discharge Meds if any: NOT Prescribed or Continued at Discharge Congestive Heart Failure Inclusion Criteria At DC or during hospital stay patient has or had the following: CHF DIAGNOSIS No Discharge Core Measures Meds if any: Prescribed or Continued at Discharge Meds if any: NOT Prescribed or Continued at Discharge Cerebrovascular accident Inclusion Criteria At DC or during hospital stay patient has or had the following: CVA/TIA Diagnosis No Discharge Core Measures Meds if any: Prescribed or Continued at Discharge Meds if any: NOT Prescribed or Continued at Discharge Venous thromboembolism Inclusion Criteria VTE Diagnosis No VTE Type NONE VTE Confirmed by (Test) NONE Discharge Core Measures - Per Current guidelines, there needs to be overlap - treatment for the first 5 days of Warfarin therapy. - If discharged on Warfarin prior to 5 days of - overlap therapy, the patient will need to be - assessed for post discharge needs including - *Post discharge parental anticoagulation - *Warfarin and/or parental anticoagulation education - *Follow up date to check INR post discharge At least 5 days overlap therapy as Inpatient No Meds if any: Prescribed or Continued at Discharge Note: Overlap Therapy is Warfarin and Anticoagulant Meds if any: NOT Prescribed or Continued at Discharge
[2016-12-18] MEDS ORDERED: LEVEMIR100 UNIT/1 SC (11:34)
[2016-12-18] MEDS ORDERED: HUMALOG KW100 UNIT/1 SC ×2 (13:45→13:49)
[2016-12-18] MEDS ORDERED: OXYCODONE HCL5 M2 PO (13:48)
[2016-12-18] MEDS ORDERED: CIPRO500 M1 PO (13:49)
[2016-12-18] MEDS ORDERED: CIPROFLOXACIN500 M2 PO (14:37)
--- NOTE | 2016-12-18 15:40 | Discharge Summary ---
Visit Information Visit Dates Admission Date: 12/16/16 Discharge Date: 12/18/16 Hospital Course Course Attending Physician: DINA COLLAZO,CHAPO Tucker Primary Care Physician: PATIENT HAS NO PRIMARY CARE DR Hospital Course: 46 year old man with significant past medical history of insulin-dependent diabetes mellitus and diabetic peripheral neuropathy seen for evaluation of right lower extremity redness, swelling and pain after sustaining a puncture wound. Patient reports that he stepped on a "shelli nail" that penetrated his rubber sandal and then punctured his foot. The nail did not maria straight through his foot and was immediately removed. The patient then reportedly walked three miles without washing/cleaning the area as he did not have access to a car for which he subsequently developed blisters of the foot. His used a safety pin "sterilized with a advanced practice provider and alcohol" to drain the blister. Patient noted redness with associated pain and clear drainage from the site over the next day for which he came to the [place] ED for evaluation. PMHx- insulin dependent diabetes mellitus, diabetic peripheral neuropathy, hypothyroidism ED Course: -Vitals: Temp 96.8-97.2, HR 110-115, RR 18-19, BP 139-142/84-86 O2 98-100% on Room Air -Significant Labs: WBC 13.0, Hgb/Hct 13.2/38.5, Plt 96, Na 130, K 4.0, Cl 97, BUN/Cr 17/0.7, Glu 384, Lactic Acid 1.3, Troponin <0.01, Acetone negative -Studies:CT Head - unremarkable, XR Right foot - no evidence of acute fracture or dislocatiom, mild swelling of distal foot -Interventions: Blood Cultures x2, Morphine 2mg IV, Right lower extremity cellulitis Patient was admitted to the general medicine floor and started on intravenous Unasyn. His antibiotics were converted to Ceftazidime for pseudomonas coverage. Patient demonstrated clinical improvement objectively with reduced swelling, erythema and drainage and remained afebrile with improved leukocytosis. He was discharged to home on oral ciprofloxacin to complete a 10 day total antibiotic course. MRI foot demonstrated no retained foreign body, fracture, or evidence of osteomyelitis. Patient received tetanus vaccination and intravenous immunoglobulin. Sepsis Patient meets criteria for sepsis upon initial evaluation with leukocytosis and elevated temperature with the suspected location of infection being the right lower extremity cellulitis. Lactic acid was normal. Patient received 1 L of normal saline. Insulin-dependent diabetes mellitus/diabetic peripheral neuropathy Patient was reportedly receiving his hypoglycemic medications for PCP in [place] , however has run out of many of his medications and has been taking them off schedule. HbA1c was found to be 11.0. Patient was continued on a diabetic diet, levemir and his previous scale of novolin insulin. He is to follow up with [facility] for further evaluation of his diabetes. Thrombocytopenia Platelet count was 83-98 during the admission for unclear reasons. Patient did not have any clinically evident disease suggestive of bleeding or coagulopathy. Patient is to follow up with [facility] practice for further evaluation. Allergies: Coded Allergies: No Known Allergies (12/16/16) Significant Procedures: EXAM TYPE: RAD - XRY-FOOT COMPLETE, R IMPRESSION: No evidence of acute fracture or dislocation. Mild swelling of the distal foot. No evidence of worrisome lytic changes to suggest osteomyelitis. EXAM TYPE: CAT - CT HEAD WO IV CONTRAST IMPRESSION: Unremarkable CT scan of the head. No evidence of acute territorial infarct or hemorrhage. EXAM TYPE: MRI - MRI-RT FOOT W/O RADHA IMPRESSION: Marked subcutaneous edema and soft tissue swelling at the dorsum of the right forefoot. No evidence of underlying osteomyelitis or abscess. Sensitivity for small abnormalities is limited by the motion artifact. Disposition Summary Disposition Principal Diagnosis: Right lower extremity cellulitis Additional Diagnosis: Insulin dependent Diabetes Mellitus Sepsis Thrombocytopenia Discharge Disposition: home or self care Discharge Instructions General Discharge Information Code Status: Full Code Patient's Diet: Diabetic Diet Patient's Activity: Full activtity as tolerated Follow-Up Instructions/Appts: Take Ciprofloxacin as directed, do not miss a dose. Be sure to finish this medication. Call the [facility] to establish a primary care visit. Schedule an appointment with Dr. Clyde Sears for continuity of care. Take your new insulin as directed, be sure to test your insulin 30 minutes before meals. Medications at Discharge Discharge Medications: Stop taking the following medications: Insulin Detemir (Levemir Flextouch) 100 UNIT/ML (3 ML) INSULN.PEN Inject into fatty tissue BEDTIME Qty = 15 Continue taking these medications: Pregabalin (Lyrica) 150 MG CAPSULE 1 Capsule ORAL TWICE DAILY Qty = 60 Comments: Last Taken: 12/18/16 Time: 0900AM Insulin Lispro (Humalog Kwikpen U-100) 100 UNIT/ML INSULN.PEN 10 Units Inject into fatty tissue THREE TIMES DAILY Qty = 15 Comments: NOT GIVEN IN HOSPITAL This prescription has been renewed Start taking the following new medications: Insulin Detemir (Levemir) 100 UNIT/ML VIAL 10 Units Inject into fatty tissue TWICE DAILY Qty = 1 No Refills Comments: Last Taken:12/18/16 Time: 0900AM Oxycodone HCl (Oxycodone HCl) 5 MG CAPSULE 1 Capsule ORAL EVERY SIX HOURS NEEDED Qty = 10 No Refills Comments: Last Taken: 12/18/16 Time: 0800AM Lancets (Lancets) 1 EACH EACH 1 Box Inject into fatty tissue 3 TIMES DAILY BEFORE MEALS Qty = 100 No Refills Instructions: CHECK BLOOD SUGAR 30 MINUTES BEFORE EACH MEAL Comments: NOT GIVEN Blood Sugar Diagnostic (Glucose Test Strip) 1 EACH STRIP 1 Box Inject into fatty tissue 3 TIMES DAILY BEFORE MEALS Qty = 100 No Refills Instructions: CHECK BLOOD SUGAR 30 MINUTES PRIOR TO EACH MEAL Comments: NOT GIVEN Syringe & Needle,Insulin,1 Ml (Insulin Syringe) 29 GAUGE X 7/16" DISP.SYRIN 1 Box Inject into fatty tissue BEFORE MEALS AND AT BEDTIME Qty = 100 No Refills Instructions: UTILIZE WITH PREMEAL INSULIN AND BASAL INSULIN TWO SYRINGE PER DAY Comments: NOT GIVEN Ciprofloxacin HCl (Ciprofloxacin HCl) 500 MG TABLET 1 Tablet ORAL TWICE DAILY Qty = 14 No Refills Instructions: START ON 12/19/16 Comments: NOT GIVEN IN HOSPITAL Copies To: STELLA JAMESON MD
== END 2016-12-18 15:11 | DRG 872 ==
LOC: ENRESERVDT → ENRESERVTM → ERH 20:46 → ENPENDDIS 22:38 → 2NB 22:38 → ERHI 22:38 → 2NB 12-17 00:38
PROVIDERS: Internal Medicine Hematology & Oncology; Internal Medicine Interventional Cardiology; Physician Assistant; ADMIT Student in an Organized Health Care Education/Training Program
DX: A41.9 Sepsis, unspecified organism (principal); E11.42 Type 2 diabetes mellitus with diabetic polyneuropathy; E11.22 Type 2 diabetes mellitus with diabetic chronic kidney disease; D69.6 Thrombocytopenia, unspecified; E11.65 Type 2 diabetes mellitus with hyperglycemia; L03.115 Cellulitis of right lower limb; E87.1 Hypo-osmolality and hyponatremia; Z79.4 Long term (current) use of insulin; E03.9 Hypothyroidism, unspecified; D64.9 Anemia, unspecified; E66.9 Obesity, unspecified; Z68.33 Body mass index [BMI] 33.0-33.9, adult; N18.9 Chronic kidney disease, unspecified
CPT/HCPCS: 2NBP; 75657; ERO; 73630-RT; 82436; 87040; 90714; 93005; 93010; J0713; J0780; J1200; J1670; J1815; Q2036

== ENCOUNTER 2017-01-14 20:17 | Inpatient (IN) | payer OTHER ==
[~2017-01-14] VITALS: Ht 180.3 cm; Wt 109.8 kg
[~2017-01-14 20:17] MED LIST: CIPRO500 M1 PO; CIPROFLOXACIN500 M2 PO; GLUCOSE TEST S1 EACH SC; HUMALOG KW100 UNIT/1 SC; INSULIN SYRING1 EA30 SC; LANCETS1 EACH SC; LEVEMIR FL100 UNIT/1 SC; LEVEMIR100 UNIT/1 SC; LYRICA150 M1 PO; OXYCODONE HCL5 M2 PO
--- NOTE | 2017-01-14 22:06 | ED UPPER/LOWER EXTREMITY COMPL ---
History of Present Illness General Chief Complaint: Upper Extremity Problem Stated Complaint: OPEN WOUND ON RIGHT FOOT INFECTED /LEG PAIN Source: patient, family, old records Exam Limitations: no limitations Vital Signs & Intake/Output Vital Signs & Intake/Output Vital Signs Date Time Temp Pulse Resp B/P B/P Pulse O2 O2 Flow FiO2 Mean Ox Delivery Rate 01/20 0625 98.4 85 22 132/82 94 Room Air 01/19 2154 97.8 84 20 133/79 94 Room Air 01/19 1456 98.9 80 20 104/70 95 Room Air ED Intake and Output 01/20 0000 01/19 1200 Intake Total 1970 Output Total 700 Balance 1270 Intake, IV 250 Intake, Oral 1720 Number 0 Bowel Movements Output, Urine 700 Allergies Coded Allergies: No Known Allergies (12/16/16) Reconcile Medications Blood Sugar Diagnostic (Glucose Test Strip) 1 EACH STRIP 1 BOX SC TIDAC DIABETES CHECK BLOOD SUGAR 30 MINUTES PRIOR TO EACH MEAL Dapagliflozin Propanediol (Farxiga) 5 MG TABLET 1 TAB PO DAILY DIABETES ( Reported) Insulin Detemir (Levemir) 100 UNIT/ML VIAL 10 UNITS SC BID DIABETES Insulin Lispro (Humalog Kwikpen U-100) 100 UNIT/ML INSULN.PEN 10 UNITS SC TID DM Lancets 1 EACH EACH 1 BOX SC TIDAC DIABETES CHECK BLOOD SUGAR 30 MINUTES BEFORE EACH MEAL Levothyroxine Sodium (Synthroid) 100 MCG TABLET 1 TAB PO DAILY HYPOTHYROIDISM (Reported) Lisinopril (Prinivil) 5 MG TABLET 1 TAB PO DAILY HTN (Reported) Oxycodone HCl 5 MG CAPSULE 1 CAP PO Q6P CELLULITIS Pregabalin (Lyrica) 150 MG CAPSULE 1 CAP PO BID NERVE DAMAGE (Reported) Syringe & Needle,Insulin,1 Ml (Insulin Syringe) 29 GAUGE X 7/16" DISP.SYRIN 1 BOX SC TIDAC/HS DIABETES UTILIZE WITH PREMEAL INSULIN AND BASAL INSULIN TWO SYRINGE PER DAY Triage Note: PT TO TRIAGE WITH C/O INFECTED CHRONIC WOUND TO R FOOT, +REDNESS AND DISCHARGE, PAIN 10/10. HX OF DIABETES, NEUROPOTHY. TEMP 100.6 IN TRIAGE. Triage Nurses Notes Reviewed? yes Onset: Gradual Duration: week(s): (FEW), worse persistent since (3 DAYS) Timing: recent history Severity: mild, moderate Pain/Injury Location: Right: 4th finger, 5th finger, Foot. Associated Symptoms: swelling, redness HPI: This is a 46-year-old male with history of insulin-dependent diabetes, recently very poorly controlled sugars presents via her chief complaint of fever for the past 3 days up to 101.2 at home. He complains of pain redness and swelling on his right foot. There is an area of black skin between his fourth and fifth digit. He states he was supposed to follow up with a consumer marketing specialist after discharge from the hospital last month. He was here one day for cellulitis. He states he was unable to follow-up with a consumer marketing specialist went back to his consumer marketing specialist in [place]. He missed an appointment by 10 minutes and she canceled. He is due to see her tomorrow. However tonight the pain got much worse and they decided to bring him into the hospital for evaluation. Positive fever or some chills. Increased pain at the foot. Swelling of the right leg for 3 days. No chest pain or shortness of breath. Past History Travel History Traveled to [place] past 21 day No Medical History Any Pertinent Medical History? see below for history Neurological: NONE EENT: NONE Cardiovascular: NONE Respiratory: NONE Gastrointestinal: NONE Hepatic: NONE Renal: nephrolithiasis, chronic kidney disease hypothyroid Musculoskeletal: NONE Psychiatric: NONE Endocrine: diabetes, hypothyroidism History of MRSA: No History of VRE: No History of CDIFF: No Tetanus Vaccine: 12/17/16 Surgical History Surgical History: non-contributory Psychosocial History What is your primary language Indonesian Tobacco Use: Never used Family History Hx Contributory? No Review of Systems Review of Systems Constitutional: Reports: chills, fever. EENTM: Reports: no symptoms. Respiratory: Reports: no symptoms. Cardiovascular: Denies: chest pain, orthopena. Gastrointestinal/Abdominal: Denies: abdominal pain. Genitourinary: Reports: no symptoms. Musculoskeletal: Reports: no symptoms. Skin: Reports: erythema. Neurological/Psychological: Reports: no symptoms. Hematologic/Endocrine: Denies: bruising, bleeding, polyuria, polydipsia. Immunological: Denies: splenectomy. All Other Systems: Reviewed and Negative Physical Exam Physical Exam General Appearance: well developed/nourished, mild distress Head: atraumatic Eyes: Bilateral: PERRL, EOMI. Ears, Nose, Throat: normal pharynx, normal ENT inspection, hearing grossly normal Neck: normal inspection, supple Cardiovascular/Respiratory: regular rate/rhythm Back: normal inspection Leg Left: normal range of motion, normal inspection Leg Right: normal range of motion, normal inspection Knee Left: normal range of motion, normal inspection Knee Right: normal range of motion, normal inspection Foot Left: normal range of motion Foot Right: soft tissue tenderness, swelling (BETWEEN 4/5TH TOES), AREA OF NECROSIS BETWEEN TOES Neurologic/Tendon: normal sensation, normal motor functions, normal tendon functions Skin: intact, normal color, warm/dry Lymphatic: no anterior cervical oscar Progress Differential Diagnosis: cellulitis, OSTEOMYELITIS, DIABETIC WOUND Plan of Care: Orders Procedure Date/time Status CBC WITHOUT DIFFERENTIAL 01/21 0600 Active Periph. Inserted Central Cath 01/21 UNK Active Consistent Carbohydrate 3 01/20 L Active Nothing by Mouth 01/20 B Complete PATHOLOGY SPECIMEN 01/20 1007 Active Current Medications Sig/[place] Start time Last Medication Dose Stop Time Status Admin Insulin Detemir 20 UNITS BID 01/20 2200 AC (Levemir) Insulin Aspart 0 TIDAC/HS 01/20 1700 AC (NovoLOG) Vancomycin HCl 1,500 MG Q12 01/18 2200 AC 01/20 Sodium Chloride 250 ML 1213 (Normal Saline 0.9%) Docusate Sodium 100 MG DAILY 01/16 1000 AC 01/20 (Colace) 1213 Oxycodone/ 2 TAB Q6P PRN 01/16 1000 AC 01/20 Acetaminophen 1212 (Percocet) Polyethylene Glycol 17 GM DAILY 01/16 1000 AC 01/17 (Miralax) 0859 Senna/Docusate Sodium 2 TAB DAILY 01/16 1000 AC 01/20 (Senokot S) 1213 Levothyroxine Sodium 0.1 MG DAILY AC 01/15 0700 AC 01/20 (Synthroid) 0612 Pregabalin 150 MG BID 01/14 2358 AC 01/20 (Lyrica) 1212 Acetaminophen 650 MG Q6P PRN 01/14 2345 AC (Tylenol) Laboratory Tests 01/19/17 1437: PT 13.5 H, INR 1.29 H, CBC w Diff NO MAN DIFF REQ, RBC 3.84 L, MCV 88.9, MCH 30.0, RDW 13.9, MPV 9.4, Gran % 70.2, Lymphocytes % 19.8 L, Monocytes % 5.2, Eosinophils % 4.4, Basophils % 0.4, Absolute Granulocytes 5.1, Absolute Lymphocytes 1.4, Absolute Monocytes 0.4, Absolute Eosinophils 0.3, Absolute Basophils 0, PUBS MCHC 33.8 Diagnostic Imaging: Viewed by Me: Radiology Read. Discussed w/RAD: Radiology Read. Radiology Impression: PATIENT: DORA STUART PRESENT AGE: 46 PATIENT ACCOUNT NO: [id number] : 70 LOCATION: [facility] ORDERING PHYSICIAN: LYNNETTE LINDSEY MD SERVICE DATE: 01/14/17 EXAM TYPE: RAD - XRY -FOOT COMPLETE, R EXAMINATION: XR FOOT, RIGHT CLINICAL INFORMATION: Chronic wound between the fourth and fifth toe. COMPARISON: None TECHNIQUE: AP, lateral, and oblique views of the right foot. FINDINGS: Arterial vascular calcifications are present. There is moderate soft tissue swelling of the foot. A soft tissue defect is seen adjacent to the fifth toe at the level of the metatarsal phalangeal joint. There is no indication of osteomyelitis or septic arthritis. Large calcaneal spurs are present. No fracture is seen. IMPRESSION: Exam is negative for osteomyelitis or septic arthritis. DICTATED BY: VINI TRAN MD DATE/TIME DICTATED:01/14/172250 EDITOR NEWSPAPER:NOAM DATE/TIME TRANSCRIBED:01/14/172250 CONFIDENTIAL, DO NOT COPY WITHOUT APPROPRIATE AUTHORIZATION. <Electronically signed in Other Vendor System> SIGNED BY: VINI TRAN MD 01/14/172258 Departure Departure Time of Disposition: 2305 Disposition: STILL A PATIENT Condition: Stable Clinical Impression Primary Impression: Diabetic foot infection Secondary Impressions: Diabetic neuropathy Referrals: DORA LYNN MD (PCP/Family) Departure Forms: Customer Survey General Discharge Information Admission Note Spoke With: MARISA HARDY MD Documentation of Exam: Documentation of any treatments & extenuating circumstances including Concerns Regarding Discharge (functional status, medication knowledge or non-compliance, living conditions, etc.) that warrant an admission rather than observation: [IV ABX, FOOT ELEVATION, WOUND CARE, PODIATRY CONSULTATION, F/U CULTURES, CONSIDER]
[2017-01-14 22:16] LABS: ABSOLUTE BASOPHIL COUNT 0 /CUMM (0.0-0.2); ABSOLUTE EOSINOPHIL COUNT 0.1 /CUMM (0.0-0.7); ABSOLUTE GRANULOCYTE CT 9.2 /CUMM (1.4-6.5); ABSOLUTE MONOCYTE COUNT 0.5 /CUMM (0.10-0.60); BASOPHIL % 0.3 % (0.0-2.0); EOSINOPHIL % 0.6 % (0-5); HEMATOCRIT 34.6 % (42-52); MEAN CORPUSCULAR HGB 30.2 PG (27.0-31.0); MEAN PLATELET VOLUME 10.8 FL (7.4-10.4); PLATELET COUNT 101 /CUMM (130-400); RBC DISTRIBUTION WIDTH 13.7 % (11.5-14.5); RED BLOOD CELL CT 3.89 /CUMM (4.70-6.10); WHITE BLOOD CELL COUNT 10.8 /CUMM (4.8-10.8)
[2017-01-14 22:24] LABS: PT 13.6 SEC (9.4-12.5); PTT 29 SEC (25-37)
--- NOTE | 2017-01-14 22:59 | RADIOLOGY REPORT ---
EXAMINATION: XR FOOT, RIGHT CLINICAL INFORMATION: Chronic wound between the fourth and fifth toe. COMPARISON: None TECHNIQUE: AP, lateral, and oblique views of the right foot. FINDINGS: Arterial vascular calcifications are present. There is moderate soft tissue swelling of the foot. A soft tissue defect is seen adjacent to the fifth toe at the level of the metatarsal phalangeal joint. There is no indication of osteomyelitis or septic arthritis. Large calcaneal spurs are present. No fracture is seen. IMPRESSION: Exam is negative for osteomyelitis or septic arthritis.
--- NOTE | 2017-01-14 23:13 | History & Physical ---
JOSUÉ COLLAZO,[facility] 01/14/17 8422: General Information and HPI History of Present Illness: Ms. Dent is a 46-year-old gentleman with a PMH significant for poorly controlled IDDM type 2 with peripheral neuropathy, and hypothyroidism, recently discharged form [facility] after being treated for cellulitis in the right lower extremity with Fortaz, who presents with recurrent tenderness and erythema in his right sole with fevers up to 102 F for the past 3-4 days. Since being discharged at the end of November, the patient completed the full 10 day course of Cipro and has been doing well until 4 days ago when he spiked a fever. A day later patient noticed increasing redness around the ulcer on the right sole extending to the dorsal side with a black color change between the fourth and fifth digit of RLE. Patient was given a referral to the continuity clinic following discharge but the clinic wasn't unable to schedule him an appointment. He subsequently went to see his old policy intern in [place] 2 days but was unable to be seen due to her scehdule. Patient reports chills and night sweats along with fevers. Denies chest pain, palpitations, dyspnea, dizziness, abdominal pain, n/v/c/d. In ED patient was febrile up to 101.6. He received a dose of Unasyn with Morphine and Tylenol. PCP - Alan Diaz Deployment Manager - Dr. Bear Full code. Allergies/Medications Allergies: Coded Allergies: No Known Allergies (12/16/16) Past History Travel History Traveled to [place] past 21 day No Medical History Neurological: NONE EENT: NONE Cardiovascular: NONE Respiratory: NONE Gastrointestinal: NONE Hepatic: NONE Renal: nephrolithiasis, chronic kidney disease hypothyroid Musculoskeletal: NONE Psychiatric: NONE Endocrine: diabetes, hypothyroidism History of MRSA: No History of VRE: No History of CDIFF: No Tetanus Vaccine: 12/17/16 Surgical History Surgical History: non-contributory Past Family/Social History Functional Ability ADLs Independent: dressing, eating, toileting, bathing. Ambulation: independent IADLs Independent: shopping, housework, finances, food prep, telephone, transportation , medication admin. Assessment/Plan Assessment: Ms. Dent is a 46-year-old gentleman with a PMH significant for poorly controlled IDDM type 2 with peripheral neuropathy who presents with recurrent tenderness and erythema in his right sole with fevers up to 102 F for the past 3 -4 days concerning for cellulitis and possible osteomyelitis. # Cellulitis: His skin changes with fever/chills are concernign for cellulitis and possibel osteomyelitis especailly in the setting of uncontrolled diabetes. Also given the location of injury and his recent admission to hospital we will cover for MRSA, anarobes and pseudomonas. * Admit to GM service * Vitals per protocol * Follow blood cultures * Clindamycin and Fortaz for now * Consult ID and poidatry in the morning # Poorly controlled IDDM type 2 Patient is reportedly noncompliant with his home regimen as he has been unable to follow up with any PCP since moving from [place]. Glucose on admission in high 200s. * Novolog SSI with accuchecks * Diabetic diet * Gentle IV hydration * Resume home med Lyrica * Follow-up A1c # ? Hypothyroidism * Check TFT again for this admission (TSH 5.4 last admission) - Diabetic diet - Mild pain pathway - DVT prophylaxis with SQH - Full code. As Ranked By This Provider Problem List: 1. Wound, open, foot 2. Diabetic foot infection 3. Hyperglycemia 4. Cellulitis of foot, right Core Measures/Miscellaneous Acute Coronary Syndrome ACS Diagnosis: No Cerebrovascular Accident CVA/TIA Diagnosis: No Congestive Heart Failure CHF Diagnosis: No Venous Thromboembolism VTE Risk Factors: Age > 40 [facility] prophylaxis d/t: LE Injury, current No VTE Pharm Prophylaxis d/t: No contraindications VTE Diagnosis: No VTE Type: NONE VTE Confirmed by (Test): NONE Severe Sepsis Severe Sepsis Present: No Septic Shock Septic Shock Present: No Miscellaneous Documentation Attending Case Discussed With: Dr. Pantoja Primary Care Physician: DORA LYNN MD Patient sees these Specialists PCP Level of Patient Care: General Medicine GIULIANA COLLAZO,KUSH 01/14/17 6849: General Information and HPI Allergies/Medications Home Med list Blood Sugar Diagnostic (Glucose Test Strip) 1 EACH STRIP 1 BOX SC TIDAC DIABETES CHECK BLOOD SUGAR 30 MINUTES PRIOR TO EACH MEAL Dapagliflozin Propanediol (Farxiga) 5 MG TABLET 1 TAB PO DAILY DIABETES ( Reported) Insulin Detemir (Levemir) 100 UNIT/ML VIAL 10 UNITS SC BID DIABETES Insulin Lispro (Humalog Kwikpen U-100) 100 UNIT/ML INSULN.PEN 10 UNITS SC TID DM Lancets 1 EACH EACH 1 BOX SC TIDAC DIABETES CHECK BLOOD SUGAR 30 MINUTES BEFORE EACH MEAL Levothyroxine Sodium (Synthroid) 100 MCG TABLET 1 TAB PO DAILY HYPOTHYROIDISM (Reported) Lisinopril (Prinivil) 5 MG TABLET 1 TAB PO DAILY HTN (Reported) Oxycodone HCl 5 MG CAPSULE 1 CAP PO Q6P CELLULITIS Pregabalin (Lyrica) 150 MG CAPSULE 1 CAP PO BID NERVE DAMAGE (Reported) Syringe & Needle,Insulin,1 Ml (Insulin Syringe) 29 GAUGE X 7/16" DISP.SYRIN 1 BOX SC TIDAC/HS DIABETES UTILIZE WITH PREMEAL INSULIN AND BASAL INSULIN TWO SYRINGE PER DAY Review of Systems Review of Systems Constitutional: Reports: see HPI. Exam & Diagnostic Data Last 24 Hrs of Vital Signs/I&O Vital Signs Date Time Temp Pulse Resp B/P B/P Pulse O2 O2 Flow FiO2 Mean Ox Delivery Rate 01/15 0039 101.2 95 16 113/57 96 Room Air 01/15 0038 101.2 01/14 2231 101.6 01/14 2220 Room Air 01/14 2051 100.6 105 18 146/78 98 Room Air Intake & Output 01/15 0800 01/15 0000 01/14 1600 Intake Total Output Total Balance Patient 243 lb 243 lb Weight Weight Reported by Patient Reported by Patient Measurement Method Resident Review Statement Resident Statement: examined this patient, discussed with financial analyst intern Other Findings: This is a 46-year-old gentleman his medical issues include poorly controlled diabetes, hypertension, diabetic neuropathy presents to the emergency room with a chief complaint of right lower extremity pain and swelling. Also admits to having fevers and chills at home for the last 4 days. Patient was admitted to [facility] for cellulitis and discharge on December 19 and completed a ten- day course of by mouth antibiotics after discharge. States that he was okay for 2 weeks but as of 3 days ago he noticed that his right lower extremity was tender and red and had associated chills and muscle aches. He also noticed some necrotic skin between the fourth and fifth toes. He went to his policy intern however was unable to see her as he arrived late for his appointment. Denies any chest pain, shortness of breath, nausea, vomiting, diarrhea or any sick contacts. Physical exam Vital signs suggestive of an elevated temperature and pulse rate, heart and abdominal exams normal, right lower extremity has erythema on the dorsum of the right foot and necrotic looking skin between the fourth and the fifth toe no oozing ulcer, normal pulses bilaterally X-rays negative for osteomyelitis or septic arthritis Assessment- 1. Right lower extremity cellulitis 2. Possible osteomyelitis 3. Sepsis secondary to cellulitis 4. Insulin-dependent diabetes mellitus 5. Peripheral neuropathy Plan- GEN med admit Vitals per protocol Check ESR, hemoglobin A1c, magnesium, thyroid studies Accu-Cheks, diabetic diet, insulin sliding scale and also long-acting insulin Consider repeat MRI of the right foot (MRI of the right foot done 3 weeks ago was negative) Podiatry and endocrine evaluation in the morning Continue home meds IV ceftaz edema 1 g Q8; cover for Pseudomonas & Clindamycin 600 mg IV Q8; cover for anaerobes and MRSA Pain pathway DVT prophylaxis with subcutaneous heparin Full code MARISA HARDY 01/15/17 0234: Attending MD Review Statement Attending Statement Attending MD Statement: examined this patient, discuss w/resident/PA/HOTEL SERVICE SUPERVISOR, agreed w/resident/PA/HOTEL SERVICE SUPERVISOR, reviewed EMR data (avail), reviewed images, amended to note Attending Assessment/Plan: CC: Open wound on right foot PMH: DM on Insulin, HTN, hypothyroidism, diabetic neuropathy, diabetic retinopathy Patient comes to ER with chief complaint of open wound on right foot with increased redness and pain along with fever for the past 3 days up to 101.2 at home. Patient was admitted last month with similar complaints, when he had a blister on right lower extremity, popped open at home, came with worsening redness and pain. He was admitted, investigated with MRI which was negative, treated with IV antibiotics and discharged on by mouth antibiotics for 10 days. Patient was feeling symptomatically much better after completing antibiotic course but wound on right foot persisted. The wound was healing it again got worse with increased redness, swelling, pain, some closing from the ulcer. He also noticed some blurred and that the skin causing black discoloration between his fourth and fifth digit. He denies any cough, shortness of breath, chest pain , abdominal pain, diarrhea, vomiting, nausea, urinary symptoms, flulike symptoms or any other source of infection. Home blood sugar log shows uncontrolled blood sugar, he also has diabetic retinopathy for which he underwent laser photocoagulation Vitals: Tmax 101.6, pulse 105, respiration 18, blood pressure 146/78, saturating well on room air On exam: A O 3, cooperative, no acute distress, neck supple, no JVD, no lymphadenopathy, mucosa moist, no focal neurological deficit, CVS: S1-S2, RRR. RS: Clear to auscultate bilaterally. Abdomen: Soft, NT, ND, bowel sounds present. Right lower extremity is swollen up to ankle, more so in the dorsum of foot, has chronic nonhealing ulcer approximately 1.5 cm in diameter in lateral aspect of sole, with nonhealing raised borders, no obvious blood or pus discharge, blackish discoloration under skin in web space fourth and fifth toes, blanching, appears to be subcutaneous hemorrhage. Peripheral pulses intact perfusion normal. Labs: WBC 10.8 with neutrophils 85%, hemoglobin 11.7, platelets 101, ESR 120, sodium 131, chloride 92, bicarbonate 27, anion gap 12, creatinine 0.6, glucose 272, lactate 0.9, calcium 8.3 x-ray right foot negative for osteomyelitis, septic arthritis, A and P Recurrent infection of right foot ulcer, diabetic foot infection in setting of uncontrolled diabetes. Need to rule out osteomyelitis. Patient has significant persistent fever, secondary cellulitis around the ulcer. #Diabetic foot infection # Uncontrolled diabetes # History of hypothyroidism # History of diabetic neuropathy, retinopathy #Thrombocytopenia of unclear etiology - Admit to general medicine - Continue IV clindamycin, ceftaz edema - MRI of right foot - Podiatry consult, ID consult - Endocrine consult for uncontrolled blood sugars - Continue sliding scale insulin with aspart, and basal Levemir - Hold dapagliflozin, lisinopril - Continue Lyrica, levothyroxine 100 g - Need to reconsult medications in a.m., once brings all his pill boxes - DVT prophylaxis with Alps only, low platelets
[2017-01-15] MEDS ORDERED: PRINIVIL5 M1 PO (01:36)
[2017-01-15] MEDS ORDERED: SYNTHROID100 MCG PO (01:36)
[2017-01-15] MEDS ORDERED: FARXIGA5 M1 PO (01:37)
[2017-01-15 01:45] VITALS: BP 120/74
--- NOTE | 2017-01-15 02:35 | Admission Certification ---
Admission Certification Certification Statement - As attending physician, I certify that at the time of - admission, based on clinical presentation, severity of - symptoms, need for further diagnostic testing and - therapeutic interventions, and risk of adverse outcomes - without in-hospital treatment, in my clinical assessment, - this patient requires an acute hospital stay for a minimum - of two nights or longer. I have also considered psychsocial - factors such as support system, advanced age, financial - issues, cognitive issues, and failed out-patient treatments, - past re-admission history, safety of patient, and lack of - compliance as applicable. Specific rationale supporting this admission is: Diabetes foot infection
[2017-01-15 06:32] VITALS: BP 118/78
--- NOTE | 2017-01-15 07:22 | PN- Housestaff ---
WALDO GONZALEZ MD 01/15/17 0721: Subjective Follow-up For: Right foot pain Cellulitis versus osteomyelitis Subjective: Patient seen and examined. He is seen lying flat in bed resting comfortably. He appears to be in no acute distress. He reports that his right foot is in a moderate amount of pain and that he has intermittent associated fever/chills with generalized fatigue and weakness. Otherwise he denies any lightheadedness/dizziness, chest pain, palpitations, shortness of breath, cough, nausea, vomiting, diarrhea. No overnight events reported. Review of Systems Constitutional: Reports: see HPI. Objective Last 24 Hrs of Vital Signs/I&O Vital Signs Date Time Temp Pulse Resp B/P B/P Pulse O2 O2 Flow FiO2 Mean Ox Delivery Rate 01/15 1417 98.2 79 20 108/60 97 Room Air 01/15 0632 97.5 76 20 118/78 94 Room Air 01/15 0145 99.1 88 20 120/74 97 Room Air 01/15 0130 99.1 01/15 0039 101.2 95 16 113/57 96 Room Air 01/15 0038 101.2 01/14 2231 101.6 01/14 2220 Room Air 01/14 2051 100.6 105 18 146/78 98 Room Air Intake & Output 01/15 1600 01/15 0800 01/15 0000 Intake Total 400 Output Total 250 Balance -250 400 Intake, Oral 400 Output, Urine 250 Patient 110.223 kg 110.223 kg Weight Weight Reported by Patient Reported by Patient Measurement Method Physical Exam General Appearance: Alert, Oriented X3, Cooperative, Mild Distress Other Physical Findings: General -well-developed, well-nourished middle-aged man appearing ill and in mild distress HEENT - NCAT, PERRL, EOMI, anicteric sclera Cardio - S1, S2 w/o murmurs/gallops/rubs Resp - CTA bilaterally w/o wheezing/rhochi/crackles GI - soft, obese, nontender, nondistended, bowel sounds present Neuro - Awake and alert, CN II - XII grossly intact Extremities -right lower extremity has 1.5 cm area of erythema/induration with scant amount of serosanguineous drainage between the fourth/fifth metatarsal with gauze applied to distal lateral aspect of extremity with a scant amount of dried blood, normal pulses, no cyanosis/clubbing/edema Current Medications: Current Medications Sig/[place] Start time Last Medication Dose Route Stop Time Status Admin Acetaminophen 650 MG Q6P PRN 01/14 2345 AC PO Acetaminophen 975 MG ONCE ONE 01/140 DC 01/14 PO 01/14 2231 223 Acetaminophen 0 .STK-MED ONE 01/14 2212 DC PO Ampicillin Sodium/ 3,000 MG Q6 01/15 0600 CAN Sulbactam Sodium IV Sodium Chloride 100 ML Ampicillin Sodium/ 3,000 MG ONCE ONE 01/14 2315 DC 01/14 Sulbactam Sodium IV 01/14 2344 2317 Sodium Chloride 100 ML Ampicillin Sodium/ 0 .STK-MED ONE 01/14 231 DC Sulbactam Sodium .ROUTE Ceftazidime 1,000 MG IQ8 01/15 0800 AC 01/15 IV 0838 Clindamycin 600 MG IQ8 01/15 0800 AC 01/15 Dextrose/Water 50 ML IV 0838 Heparin Sodium 0 .STK-MED ONE 01/15 0033 DC (Porcine) .ROUTE Heparin Sodium 5,000 UNIT Q8 01/14 2356 DC 01/15 (Porcine) SC 0038 Ibuprofen 0 .STK-MED ONE 01/15 0033 DC PO Ibuprofen 600 MG Q6P PRN 01/14 2345 AC 01/15 PO 0038 Insulin Aspart 0 TIDAC 01/15 0800 DC 01/15 SC 0839 Insulin Detemir 10 UNITS BID 01/148 AC 01/15 SC 1146 Insulin Human Regular 0 Q6 01/15 1800 AC SC Levothyroxine Sodium 0.1 MG DAILY AC 01/15 0700 AC 01/15 PO 0704 Morphine Sulfate 2 MG Q6P PRN 01/15 1315 AC 01/15 IV 1417 Morphine Sulfate 4 MG ONCE ONE 01/14 2230 DC 01/14 IV 01/14 2231 2231 Morphine Sulfate 0 .STK-MED ONE 01/14 223 DC .ROUTE Oxycodone/ 1 TAB Q6P PRN 01/14 2345 AC 01/15 Acetaminophen PO 0839 Pregabalin 0 .STK-MED ONE 01/15 0033 DC PO Pregabalin 150 MG BID 01/14 2358 AC 01/15 PO 1146 Last 24 Hrs of Lab/Pelon Results Last 24 Hrs of Labs/Mics: Laboratory Tests 01/15/17 1106: Urine Color YEL, Urine Clarity CLEAR, Urine pH 6.5, Ur Specific [place] 1.010, Urine Protein NEG, Urine Ketones NEG, Urine Nitrite NEG, Urine Bilirubin NEG, Urine Urobilinogen 2.0 H, Ur Leukocyte Esterase NEG, Ur Microscopic SEDIMENT EXAMINED, Urine RBC 1-3, Urine WBC RARE, Ur Epithelial Cells RARE, Urine Bacteria FEW H, Urine Hemoglobin TRACE-LYSED H, Urine Glucose >=1000 H 01/15/17 0618: Anion Gap 10, Estimated GFR > 60, BUN/Creatinine Ratio 24.0, CBC w Diff NO MAN DIFF REQ, RBC 3.62 L, MCV 89.4, MCH 30.5, RDW 13.8, MPV 10.9 H, Gran % 68.5, Lymphocytes % 22.8, Monocytes % 7.2, Eosinophils % 1.2, Basophils % 0.3, Absolute Granulocytes 6.2, Absolute Lymphocytes 2.1, Absolute Monocytes 0.6, Absolute Eosinophils 0.1, Absolute Basophils 0, PUBS MCHC 34.1 01/15/17228: Lactic Acid Cancelled 01/14/172203: Anion Gap 12, Estimated GFR > 60, BUN/Creatinine Ratio 23.3, Glucose 272 H, Hemoglobin A1c 10.1 H, Lactic Acid 0.9, Calcium 8.3 L, Total Bilirubin 0.9, AST 15 L, ALT 31, Alkaline Phosphatase 90, Total Protein 7.5, Albumin 3.7, Globulin 3.8, Albumin/Globulin Ratio 1.0 L, TSH 3.580, Free T4 1.27, PT 13.6 H , INR 1.30 H, APTT 29, CBC w Diff NO MAN DIFF REQ, RBC 3.89 L, MCV 89.0, MCH 30.2, RDW 13.7, MPV 10.8 H, Gran % 85.0 H, Lymphocytes % 9.4 L, Monocytes % 4.7, Eosinophils % 0.6, Basophils % 0.3, Absolute Granulocytes 9.2 H, Absolute Lymphocytes 1.0 L, Absolute Monocytes 0.5, Absolute Eosinophils 0.1, Absolute Basophils 0, PUBS MCHC 34.0, ESR Westergren 120 H Microbiology 01/14 2230 BLOOD: Blood Culture - RES 01/15 2204 BLOOD: Blood Culture - RES Assessment/Plan Assessment: 46-year-old man with multiple medical problems significant for poorly controlled insulin-dependent diabetes mellitus, diabetic peripheral neuropathy, and recent hospitalization for puncture wound cellulitis treated with antibiotics in for evaluation of recurrent right lower extremity pain with associated fever, chills and weakness and a new area of erythematous induration. Hosptal Day 1 Patient was seen and evaluated by podiatry and infectious disease consultants while continued on intravenous clindamycin and cefazidime. MRI of right foot demonstrates active osteomyeltis. Patient was made NPO after breakfast and will be taken to the OR later this evening for surgical debridement and biopsy. He is to be continued on the antibiotic regimen in anticipation of this. Endocrinolgist architectural sales consultant recommended a Novolog sliding scale regimen that is to be started after the surgical procedure, he is to be maintained on NPO Novolin in the mean time. Right Foot Osteomyelitis Patient was admitted to [facility] from 12/16/16 - 12/18/16 after stepping on a "shelli nail" that punctured his rubber shoe. He was treated with intravenous Ceftazidime and discharged to home on oral ciprofloxacin to complete a 10 day total antibiotic course. XR/MRI foot during this admission did not demonstrate osteomyelitis. He had clinical improvement with antibiotics. Patient reports pain and redness in his same extremity for four days prior to admission with assocaited fever, chills and weaknesss. Patient was febrile to 101.6 and received one dose of Unasyn. WBC 10.8, ESR 120. XR did not demonstrate any osteomyeltis. Patient was admitted to the general medicine floor for further evaluation. MRI of right demonstrated findings suggestive of osteomyeltis. Patient was continued on antibiotics, made NPO, and taken in for surgical debridement. -General Medicine -Clindamycin 600mg IV Q8H -Ceftazidime 1g IV Q8H -Podiatry Consult -Infectious Disease Consult -Follow up cultures & sensitivities Poorly Controlled Insulin-dependent Diabetes Mellitus Patient was discharged to home with diabetic supplies and instruction to establish care with a PCP with a referral made to [facility] on recent hospital discharge. Patient was lost to follow up but reports medication compliance. -Accucheck TIDAC/HS -Hold oral hypoglycemics -Novolin NPO SSI, restart Novolog per Endocrinology consult recommendations after surgery -Levemir and units SC twice a day -Endocrinology consult Peripheral neuropathy-Lyrica 150 mg by mouth twice a day Hypothyroidism-Synthroid 10 g by mouth daily Pain Plan-Acetaminophen/Percocet/morphine Diet-nothing by mouth for surgery, restart diabetic diet after DVT prophylaxis-subcutaneous heparin CODE STATUS-full code Problem List: 1. Osteomyelitis of right foot Pain Ratin Pain Location: Right foot Pain Goal: Pain 7 or less Pain Plan: See assessment Tomorrow's Labs & Rationales: CBC - osteomyelitis DIEGO RUSH MD 01/15/17 1152: Attending MD Review Statement Attending Statement Attending MD Statement: examined this patient, discuss w/resident/PA/LIQUEFIED NATURAL GAS PLANT OPERATOR, agreed w/resident/PA/LIQUEFIED NATURAL GAS PLANT OPERATOR, reviewed EMR data (avail), discussed with nursing, discussed with case mgmt, amended to note Attending Assessment/Plan: Patient seen and examined. Lying in bed with mild right dose. Complain of pain right lower extremity. MAXIMUM TEMPERATURE overnight is 101.6. Blood pressure is acceptable. He is not tachycardic. He has no leukocytosis on labs though he did have granulocytosis on presentation labs. Examination of the foot there is marked edema and erythema of the plantar and dorsal aspect of the base of the fifth toe. There is a small amount of purulent discharge. Distal pulses are palpable. The limb does not appear ischemic. Extremities show no evidence of osteomyelitis yesterday. Doppler of the extremity shows no evidence of DVT although noted is mildly enlarged right groin lymph nodes likely reactive secondary to his infection. Recommendations: -The podiatry service was contacted urgently. He will be seen by Dr. Gandhi today possibly for incision and drainage. -Continue current antibiotic regimen pending evaluation by the ID service. -Continue blood glucose control with insulin therapy.
--- NOTE | 2017-01-15 07:48 | Cons- Endocrinology ---
General Information and HPI Consulting Request Date of Consult: 01/15/17 Requested By: medical team Reason for Consult: Uncontrolled diabetes Source of Information: patient, old records Exam Limitations: no limitations History of Present Illness: This 46-year-old male hasn't long-standing history of diabetes type 2 with severe complications. Patient enters the hospital with a draining ulcer and swelling of his right foot and fevers and chills. He was here at [facility] during the month of November and received some antibiotics. Once he finished a course of antibiotics at home, he noticed that the foot was getting worse again and he developed fever and chills. He came back to the emergency room. The patient has a known history of diabetic neuropathy and also diabetic retinopathy. He denies diabetic kidney disease. He takes Levemir at home as well as Humalog before his meals. At one time he was also on Victoza. His blood sugars usually run high. He states he tries to follow his diet. He is unable to get much exercise because of the pain in his legs. The patient has a very strong family history of diabetes. He has 7 brothers and 4 sisters. Of his siblings four have diabetes and some of them had heart disease. His father of complications from diabetes and his mother who is alive also has diabetes. The patient also has a history of hypothyroidism and is on levothyroxin. The patient has been disabled. 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 He used to weigh 320 pounds and now weighs about 240 pounds. Allergies/Medications Allergies: Coded Allergies: No Known Allergies (12/16/16) Home Med List: Blood Sugar Diagnostic (Glucose Test Strip) 1 EACH STRIP 1 BOX SC TIDAC DIABETES CHECK BLOOD SUGAR 30 MINUTES PRIOR TO EACH MEAL Dapagliflozin Propanediol (Farxiga) 5 MG TABLET 1 TAB PO DAILY DIABETES ( Reported) Insulin Detemir (Levemir) 100 UNIT/ML VIAL 10 UNITS SC BID DIABETES Insulin Lispro (Humalog Kwikpen U-100) 100 UNIT/ML INSULN.PEN 10 UNITS SC TID DM Lancets 1 EACH EACH 1 BOX SC TIDAC DIABETES CHECK BLOOD SUGAR 30 MINUTES BEFORE EACH MEAL Levothyroxine Sodium (Synthroid) 100 MCG TABLET 1 TAB PO DAILY HYPOTHYROIDISM (Reported) Lisinopril (Prinivil) 5 MG TABLET 1 TAB PO DAILY HTN (Reported) Oxycodone HCl 5 MG CAPSULE 1 CAP PO Q6P CELLULITIS Pregabalin (Lyrica) 150 MG CAPSULE 1 CAP PO BID NERVE DAMAGE (Reported) Syringe & Needle,Insulin,1 Ml (Insulin Syringe) 29 GAUGE X 7/16" DISP.SYRIN 1 BOX SC TIDAC/HS DIABETES UTILIZE WITH PREMEAL INSULIN AND BASAL INSULIN TWO SYRINGE PER DAY Review of Systems Review of Systems Constitutional: Reports: chills, fever, malaise. Cardiovascular: Denies: chest pain, palpitations. Respiratory: Denies: cough, short of breath. Genitourinary: Denies: dysuria. Musculoskeletal: Reports: joint swelling (of right great toe). Skin: Reports: erythema (right foot). Neurological/Psychological: Denies: depressed, numbness. Hematologic/Endocrine: Reports: polyuria, polydipsia. Past History Travel History Traveled to [place] past 21 day No Medical History Neurological: NONE EENT: NONE Cardiovascular: NONE Respiratory: NONE Gastrointestinal: NONE Hepatic: NONE Renal: nephrolithiasis, chronic kidney disease hypothyroid Musculoskeletal: NONE Psychiatric: NONE Endocrine: diabetes, hypothyroidism Surgical History Surgical History: non-contributory Psychosocial History Where Do You Live? Home Smoking Status: Never Smoked Functional Ability ADLs Independent: dressing, eating, toileting, bathing. Ambulation: independent IADLs Independent: shopping, housework, finances, food prep, telephone, transportation , medication admin. Exam & Diagnostic Data Last 24 Hrs of Vital Signs/I&O Vital Signs Date Time Temp Pulse Resp B/P B/P Pulse O2 O2 Flow FiO2 Mean Ox Delivery Rate 01/15 0632 97.5 76 20 118/78 94 Room Air 01/15 0145 99.1 88 20 120/74 97 Room Air 01/15 0130 99.1 01/15 0039 101.2 95 16 113/57 96 Room Air 01/15 0038 101.2 01/141 101.6 01/14 2220 Room Air 01/141 100.6 105 18 146/78 98 Room Air Intake & Output 01/15 0800 01/15 0000 01/14 1600 Intake Total 400 Output Total Balance 400 Intake, Oral 400 Patient 243 lb 243 lb Weight Weight Reported by Patient Reported by Patient Measurement Method Physical Exam General Appearance: alert, awake, comfortable Head: normal appearance Eyes: Bilateral: normal appearance. Neck: normal inspection Respiratory: normal breath sounds Cardiovascular: regular rate/rhythm Gastrointestinal: normal bowel sounds Extremities: right foot swollen and bandaged. Labs/Pelon Results: Laboratory Tests 01/15 01/15 01/14 0666 0017 2203 Chemistry Sodium (137 - 145 mmol/L) Pending 131 L Potassium (3.5 - 5.1 mmol/L) Pending 4.0 Chloride (98 - 107 mmol/L) Pending 92 L Carbon Dioxide (22 - 30 mmol/L) Pending 27 Anion Gap (5 - 16) Pending 12 BUN (9 - 20 mg/dL) Pending 14 Creatinine (0.7 - 1.2 mg/dL) Pending 0.6 L Estimated GFR (>60 ml/min) > 60 BUN/Creatinine Ratio (7 - 25 %) Pending 23.3 Glucose (65 - 99 mg/dL) 272 H Hemoglobin A1c (4.2 - 5.8 %) Pending Lactic Acid (0.7 - 2.1 mmol/L) Cancelled 0.9 Calcium (8.4 - 10.2 mg/dL) 8.3 L Total Bilirubin (0.2 - 1.3 mg/dL) 0.9 AST (17 - 59 U/L) 15 L ALT (21 - 72 U/L) 31 Alkaline Phosphatase (< 127 U/L) 90 Total Protein (6.3 - 8.2 g/dL) 7.5 Albumin (3.5 - 5.0 g/dL) 3.7 Globulin (1.9 - 4.2 gm/dL) 3.8 Albumin/Globulin Ratio (1.1 - 2.2 %) 1.0 L TSH (0.270 - 4.200 uIU/mL) 3.580 Free T4 (0.64 - 1.79 ng/dL) 1.27 Coagulation PT (9.4 - 12.5 SEC) 13.6 H INR (0.90 - 1.17) 1.30 H APTT (25 - 37 SEC) 29 Hematology CBC w Diff Pending NO MAN DIFF REQ WBC (4.8 - 10.8 /CUMM) Pending 10.8 RBC (4.70 - 6.10 /CUMM) Pending 3.89 L Hgb (14.0 - 18.0 G/DL) Pending 11.7 L Hct (42 - 52 %) Pending 34.6 L MCV (80.0 - 94.0 FL) Pending 89.0 MCH (27.0 - 31.0 PG) Pending 30.2 RDW (11.5 - 14.5 %) Pending 13.7 Plt Count (130 - 400 /CUMM) Pending 101 L MPV (7.4 - 10.4 FL) Pending 10.8 H Gran % (42.2 - 75.2 %) 85.0 H Lymphocytes % (20.5 - 51.1 %) 9.4 L Monocytes % (1.7 - 9.3 %) 4.7 Eosinophils % (0 - 5 %) 0.6 Basophils % (0.0 - 2.0 %) 0.3 Absolute Granulocytes (1.4 - 6.5 /CUMM) 9.2 H Absolute Lymphocytes (1.2 - 3.4 /CUMM) 1.0 L Absolute Monocytes (0.10 - 0.60 /CUMM) 0.5 Absolute Eosinophils (0.0 - 0.7 /CUMM) 0.1 Absolute Basophils (0.0 - 0.2 /CUMM) 0 PUBS MCHC (33.0 - 37.0 G/DL) Pending 34.0 ESR Westergren (0 - 10 MM) 120 H Assessment/Plan Assessment/Plan This patient has a history of type 2 diabetes mellitus with severe complications including neuropathy and retinopathy. He enters the hospital with a draining ulcer on his right foot with fever, chills and swelling of the foot The patient sugar has been out of control. His hemoglobin A1c last month was 11.0%. We need to adjust his insulin. Suggest increase Levemir to 18 units twice a day. We also need to adjust sliding-scale NovoLog. Sliding-scale NovoLog before meals should be 80-150 give 6 units NovoLog, 151-200 give 8 units NovoLog, 201-250 give 10 units NovoLog, 251-300 give 12 units NovoLog, 50 give 14 units NovoLog, 351-400 give 16 units NovoLog. A separate bedtime sliding-scale should be written. Sliding-scale NovoLog at bedtime should be less than 250 give no insulin, 251-300 give 3 units NovoLog, 301-350 give 4 units NovoLog, a 51-400 give 5 units NovoLog. The patient's thyroid tests are in a good range and we should continue his levothyroxine. We should check the patient's lipid profile while he is here. Also urinalysis should be done if not already performed. Consult Acknowledgment - Thank you for your consult request.
[2017-01-15 08:23] LABS: ABSOLUTE BASOPHIL COUNT 0 /CUMM (0.0-0.2); ABSOLUTE EOSINOPHIL COUNT 0.1 /CUMM (0.0-0.7); ABSOLUTE GRANULOCYTE CT 6.2 /CUMM (1.4-6.5); ABSOLUTE LYMPH COUNT 2.1 /CUMM (1.2-3.4); ABSOLUTE MONOCYTE COUNT 0.6 /CUMM (0.10-0.60); BASOPHIL % 0.3 % (0.0-2.0); EOSINOPHIL % 1.2 % (0-5); GRANULOCYTE % 68.5 % (42.2-75.2); HEMATOCRIT 32.3 % (42-52); MEAN CORPUSCULAR HGB 30.5 PG (27.0-31.0); MEAN CORPUSCULAR HGB CONC 34.1 G/DL (33.0-37.0); MEAN CORPUSCULAR VOLUME 89.4 FL (80.0-94.0); MEAN PLATELET VOLUME 10.9 FL (7.4-10.4); PLATELET COUNT 86 /CUMM (130-400); RBC DISTRIBUTION WIDTH 13.8 % (11.5-14.5); RED BLOOD CELL CT 3.62 /CUMM (4.70-6.10)
--- NOTE | 2017-01-15 10:28 | ULTRASOUND REPORT ---
EXAMINATION: US TRIPLEX LOWER EXTREMITY, RIGHT CLINICAL INFORMATION: Right leg pain and swelling. COMPARISON: None TECHNIQUE: Color-flow triplex imaging with spectral analysis and compression Doppler were performed on the right lower extremity. FINDINGS: Respiratory variation, normal compression and augmented flow are noted throughout the lower extremity. The visualized common femoral vein, superficial femoral vein, profunda femoral vein, popliteal vein and midcalf peroneal and posterior tibial venous segments show no evidence of deep venous thrombosis. There is no Hernandez's cyst. Mildly enlarged right groin lymph nodes are seen the largest measuring 2.8 x 1.5 x 1.5 cm. IMPRESSION: No evidence of deep venous thrombosis involving the right lower extremity. Mildly enlarged right groin lymph nodes of indeterminate etiology which may be reactive in nature. Clinical correlation is recommended.
--- NOTE | 2017-01-15 12:17 | MRI REPORT ---
EXAMINATION: MR FOOT WITHOUT CONTRAST, RIGHT CLINICAL INFORMATION: Fever, ulcer, pain, elevated ESR. Evaluate for osteomyelitis. The patient reports a right foot ulcer near the 5th toe/metatarsal. COMPARISON: X-rays of the right foot 01/14/2017. MRI of the right foot 12/17/2016. TECHNIQUE: MRI of the foot without contrast was obtained using routine sequences. FINDINGS: MUSCLES/TENDONS: The tendons appear intact. Diffuse muscle edema is again noted, often seen in diabetic patients. LIGAMENTS: Intact. ARTICULAR CARTILAGE/BONE: There is mild patchy bone marrow edema in the midfoot bones, which is likely degenerative or stress-related. There is moderate focal bone marrow edema in the head of the 5th metatarsal. There is diffuse bone marrow edema in the 5th proximal phalanx. There is apparent fusion of the 5th middle and distal phalanges with mild bone marrow edema. These findings are suspicious for osteomyelitis. JOINT FLUID/BURSA/SOFT TISSUES: There is skin irregularity and ulceration plantar to the 5th MTP joint. There is underlying subcutaneous edema extending to the head of the 5th metatarsal. There is a thin layer of fluid adjacent to the head of the 5th metatarsal. There is a nonspecific localized fluid collection dorsal to the 5th proximal phalanx measuring 0.4 x 0.7 x 1.9 cm (CC x TRV x AP). IMPRESSION: Skin irregularity and ulceration plantar to the 5th MTP joint with underlying soft tissue edema and a thin layer of fluid adjacent to the head of the 5th metatarsal. Moderate bone marrow edema in the head of the 5th metatarsal and diffuse bone marrow edema in the phalanges of the 5th toe, suspicious for osteomyelitis. There is localized fluid dorsal to the 5th proximal phalanx, as well.
--- NOTE | 2017-01-15 13:47 | Cons- Infect Disease ---
General Information and HPI Consulting Request Date of Consult: 01/15/17 Requested By: MARISA HARDY MD Reason for Consult: Right foot infection Source of Information: patient, old records History of Present Illness: This is a 46-year-old man with diabetes, with peripheral neuropathy and retinopathy, nephrolithiasis and hypothyroidism hospitalized one month prior to admission after a puncture wound to his right foot from a nail while wearing a sandal, found to have purulent drainage with a low-grade fever and leukocytosis with MRI negative for osteomyelitis, treated for cellulitis with Unasyn and discharged after 2 days on Ciprofloxacin for 10 days, with reported healing of his wound, admitted on January 14 after returning to the emergency room with a one -week history of pain in the right foot, erythema over the dorsum of the foot and extending to the right leg, fevers and chills. On admission he was febrile to 101.6. Laboratory data revealed a white blood cell count of 11,000, ESR 120, BUN/creatinine 14 and 0.6, with normal liver enzymes, INR 1.30. ABG 7.46/34/56 on room air. X-ray of the right foot was negative for osteomyelitis. He was given a dose of Unasyn and then begun on Clindamycin and Ceftazidime. He appears to have defervesced overnight. An MRI of the right foot, performed this morning, revealed moderate bone marrow edema in the head of the fifth metatarsal and diffuse bone marrow edema in the phalanges of the fifth toe suspicious for osteomyelitis, with localized fluid dorsal to the fifth proximal phalanx. At present he does not report any complaints though he does note pain when his fourth and fifth toes are . Allergies/Medications Allergies: Coded Allergies: No Known Allergies (12/16/16) Home Med List: Blood Sugar Diagnostic (Glucose Test Strip) 1 EACH STRIP 1 BOX SC TIDAC DIABETES CHECK BLOOD SUGAR 30 MINUTES PRIOR TO EACH MEAL Dapagliflozin Propanediol (Farxiga) 5 MG TABLET 1 TAB PO DAILY DIABETES ( Reported) Insulin Detemir (Levemir) 100 UNIT/ML VIAL 10 UNITS SC BID DIABETES Insulin Lispro (Humalog Kwikpen U-100) 100 UNIT/ML INSULN.PEN 10 UNITS SC TID DM Lancets 1 EACH EACH 1 BOX SC TIDAC DIABETES CHECK BLOOD SUGAR 30 MINUTES BEFORE EACH MEAL Levothyroxine Sodium (Synthroid) 100 MCG TABLET 1 TAB PO DAILY HYPOTHYROIDISM (Reported) Lisinopril (Prinivil) 5 MG TABLET 1 TAB PO DAILY HTN (Reported) Oxycodone HCl 5 MG CAPSULE 1 CAP PO Q6P CELLULITIS Pregabalin (Lyrica) 150 MG CAPSULE 1 CAP PO BID NERVE DAMAGE (Reported) Syringe & Needle,Insulin,1 Ml (Insulin Syringe) 29 GAUGE X 7/16" DISP.SYRIN 1 BOX SC TIDAC/HS DIABETES UTILIZE WITH PREMEAL INSULIN AND BASAL INSULIN TWO SYRINGE PER DAY Past History Travel History Traveled to [place] past 21 day No Medical History Neurological: peripheral neuropathy EENT: diabetic retinopathy Cardiovascular: NONE Respiratory: NONE Gastrointestinal: NONE Hepatic: NONE Renal: nephrolithiasis Musculoskeletal: NONE Psychiatric: NONE Endocrine: diabetes, hypothyroidism History of MRSA: No History of VRE: No History of CDIFF: No Isolation History: Standard Influenza Vaccine: 07/07/16 Tetanus Vaccine: 12/17/16 Surgical History Surgical History: non-contributory Psychosocial History Where Do You Live? Home Smoking Status: Never Smoked Functional Ability ADLs Independent: dressing, eating, toileting, bathing. Ambulation: independent IADLs Independent: shopping, housework, finances, food prep, telephone, transportation , medication admin. Review of Systems Review of Systems All Other Systems: Reviewed and Negative Exam & Diagnostic Data Last 24 Hrs of Vital Signs/I&O Vital Signs Date Time Temp Pulse Resp B/P B/P Pulse O2 O2 Flow FiO2 Mean Ox Delivery Rate 01/15 0632 97.5 76 20 118/78 94 Room Air 01/15 0145 99.1 88 20 120/74 97 Room Air 01/15 0130 99.1 01/15 0039 101.2 95 16 113/57 96 Room Air 01/15 0038 101.2 01/14 2231 101.6 01/14 2220 Room Air 01/141 100.6 105 18 146/78 98 Room Air Intake & Output 01/15 1600 01/15 0800 01/15 0000 Intake Total 400 Output Total 250 Balance -250 400 Intake, Oral 400 Output, Urine 250 Patient 243 lb 243 lb Weight Weight Reported by Patient Reported by Patient Measurement Method Physical Exam Other Physical Findings: He is awake and alert in no acute distress. MAXIMUM TEMPERATURE 101.6. Skin reveals no rash. HEENT exam is negative. Neck is supple with no adenopathy. Lungs are clear. Heart regular rhythm with no murmur. Abdomen is soft, nontender with positive bowel sounds. Back no CVA tenderness. Extremities right foot plantar ulcer, with swelling and erythema over the dorsal and plantar aspects of the foot, with ischemic/necrotic changes between the fourth and fifth toes, and with erythema extending up the right leg; pulses 1+ and equal. Neuro neuropathy both feet. Last 24 Hours of Lab Results: Laboratory Tests 01/15 01/15 1106 0618 Chemistry Sodium (137 - 145 mmol/L) 135 L Potassium (3.5 - 5.1 mmol/L) 3.8 Chloride (98 - 107 mmol/L) 98 Carbon Dioxide (22 - 30 mmol/L) 27 Anion Gap (5 - 16) 10 BUN (9 - 20 mg/dL) 12 Creatinine (0.7 - 1.2 mg/dL) 0.5 L Estimated GFR (>60 ml/min) > 60 BUN/Creatinine Ratio (7 - 25 %) 24.0 Hematology CBC w Diff NO MAN DIFF REQ WBC (4.8 - 10.8 /CUMM) 9.0 RBC (4.70 - 6.10 /CUMM) 3.62 L Hgb (14.0 - 18.0 G/DL) 11.0 L Hct (42 - 52 %) 32.3 L MCV (80.0 - 94.0 FL) 89.4 MCH (27.0 - 31.0 PG) 30.5 RDW (11.5 - 14.5 %) 13.8 Plt Count (130 - 400 /CUMM) 86 L MPV (7.4 - 10.4 FL) 10.9 H Gran % (42.2 - 75.2 %) 68.5 Lymphocytes % (20.5 - 51.1 %) 22.8 Monocytes % (1.7 - 9.3 %) 7.2 Eosinophils % (0 - 5 %) 1.2 Basophils % (0.0 - 2.0 %) 0.3 Absolute Granulocytes (1.4 - 6.5 /CUMM) 6.2 Absolute Lymphocytes (1.2 - 3.4 /CUMM) 2.1 Absolute Monocytes (0.10 - 0.60 /CUMM) 0.6 Absolute Eosinophils (0.0 - 0.7 /CUMM) 0.1 Absolute Basophils (0.0 - 0.2 /CUMM) 0 PUBS MCHC (33.0 - 37.0 G/DL) 34.1 Urines Urine Color (YEL,AMB,STR) YEL Urine Clarity (CLEAR) CLEAR Urine pH (5.0 - 8.0) 6.5 Ur Specific [place] (1.001 - 1.035) 1.010 Urine Protein (NEG,<30 MG/DL) NEG Urine Ketones (NEG) NEG Urine Nitrite (NEG) NEG Urine Bilirubin (NEG) NEG Urine Urobilinogen (0.1 - 1.0 EU/dl) 2.0 H Ur Leukocyte Esterase (NEG) NEG Ur Microscopic SEDIMENT EXAMINED Urine RBC (0 - 5 /HPF) 1-3 Urine WBC (0 - 2 /HPF) RARE Ur Epithelial Cells (NONE,FEW) RARE Urine Bacteria (NEG/NONE) FEW H Urine Hemoglobin (NEG) TRACE-LYSED H Urine Glucose (N MG/DL) >=1000 H 01/15 01/14 0229 2204 Chemistry Sodium (137 - 145 mmol/L) 131 L Potassium (3.5 - 5.1 mmol/L) 4.0 Chloride (98 - 107 mmol/L) 92 L Carbon Dioxide (22 - 30 mmol/L) 27 Anion Gap (5 - 16) 12 BUN (9 - 20 mg/dL) 14 Creatinine (0.7 - 1.2 mg/dL) 0.6 L Estimated GFR (>60 ml/min) > 60 BUN/Creatinine Ratio (7 - 25 %) 23.3 Glucose (65 - 99 mg/dL) 272 H Hemoglobin A1c (4.2 - 5.8 %) 10.1 H Lactic Acid (0.7 - 2.1 mmol/L) Cancelled 0.9 Calcium (8.4 - 10.2 mg/dL) 8.3 L Total Bilirubin (0.2 - 1.3 mg/dL) 0.9 AST (17 - 59 U/L) 15 L ALT (21 - 72 U/L) 31 Alkaline Phosphatase (< 127 U/L) 90 Total Protein (6.3 - 8.2 g/dL) 7.5 Albumin (3.5 - 5.0 g/dL) 3.7 Globulin (1.9 - 4.2 gm/dL) 3.8 Albumin/Globulin Ratio (1.1 - 2.2 %) 1.0 L TSH (0.270 - 4.200 uIU/mL) 3.580 Free T4 (0.64 - 1.79 ng/dL) 1.27 Coagulation PT (9.4 - 12.5 SEC) 13.6 H INR (0.90 - 1.17) 1.30 H APTT (25 - 37 SEC) 29 Hematology CBC w Diff NO MAN DIFF REQ WBC (4.8 - 10.8 /CUMM) 10.8 RBC (4.70 - 6.10 /CUMM) 3.89 L Hgb (14.0 - 18.0 G/DL) 11.7 L Hct (42 - 52 %) 34.6 L MCV (80.0 - 94.0 FL) 89.0 MCH (27.0 - 31.0 PG) 30.2 RDW (11.5 - 14.5 %) 13.7 Plt Count (130 - 400 /CUMM) 101 L MPV (7.4 - 10.4 FL) 10.8 H Gran % (42.2 - 75.2 %) 85.0 H Lymphocytes % (20.5 - 51.1 %) 9.4 L Monocytes % (1.7 - 9.3 %) 4.7 Eosinophils % (0 - 5 %) 0.6 Basophils % (0.0 - 2.0 %) 0.3 Absolute Granulocytes (1.4 - 6.5 /CUMM) 9.2 H Absolute Lymphocytes (1.2 - 3.4 /CUMM) 1.0 L Absolute Monocytes (0.10 - 0.60 /CUMM) 0.5 Absolute Eosinophils (0.0 - 0.7 /CUMM) 0.1 Absolute Basophils (0.0 - 0.2 /CUMM) 0 PUBS MCHC (33.0 - 37.0 G/DL) 34.0 ESR Westergren (0 - 10 MM) 120 H Last 24 Hours of [place] Results: Blood cultures January 14 negative Diagnostic Data Recent Imaging Findings: X-ray of the right foot January 14 negative for osteomyelitis. MRI of the right foot January 15 revealed moderate bone marrow edema in the head of the fifth metatarsal and diffuse bone marrow edema in the phalanges of the fifth toe suspicious for osteomyelitis, with localized fluid dorsal to the fifth proximal phalanx. Assessment/Plan Assessment/Plan Impression: This is a 46-year-old man with diabetes hospitalized one month prior to admission after a puncture wound to the right foot with a nail through his sandal, with an MRI at that time revealing marked subcutaneous edema and soft tissue swelling with no evidence of osteomyelitis, treated for cellulitis with 2 days of Unasyn and discharged on Ciprofloxacin, readmitted on January 14 with a one-week history of pain, erythema and swelling of the right foot, found to be febrile with a mild leukocytosis, with MRI suggestive of osteomyelitis with a focal collection also noted. His clinical picture is consistent with osteomyelitis and, given the appearance of his foot, feel that he will need urgent drainage and debridement. Have discussed with Podiatry and this is scheduled for later today. Suspect that he has peripheral vascular disease and am concerned about the viability of his foot. He can continue to be covered empirically with antibiotics pending OR cultures. The history of a puncture wound does raise concern for Pseudomonas, and will await OR cultures. Suggestion: 1. Await OR later today for drainage/debridement 2. Consider Vascular surgery evaluation 3. Continue Clindamycin and Ceftazidime pending OR cultures Consult Acknowledgment - Thank you for your consult request.
[2017-01-15 14:17] VITALS: BP 108/60
--- NOTE | 2017-01-15 21:24 | Operative Report ---
Operative/Inv Procedure Report Surgery Date: 01/15/17 Name of Procedure: 1 open incision and drainage deep to the D fashion with exposure of the extensor and flexor tendon and tendon sheath multiple sites right foot 2 open partial fifth ray resection right foot 3 intraoperative administration of ankle block anesthesia 4 excisional debridement Pre-Operative Diagnosis: 1 open infected wound right foot 2 osteomyelitis right foot 3 diabetic peripheral neuropathy Post-Operative Diagnosis: The same Estimated Blood Loss: less than 50ml Surgeon/Executive Vice President Business Development: RUI BAKER DPM Anesthesia: moderate sedation, block Operative/Procedure Note Note: After obtaining informed consent the patient was brought to the operating room and placed on the operating table in the supine position. The patient was then securely fastened to the operating table utilizing safety belt. After administration of IV sedation, 10 mL of 0.5% Marcaine plain was infiltrated about the patient's right ankle. The right foot and ankle within scrubbed prepped and draped in usual aseptic manner. Attention was directed to the right foot were large full-thickness necrotic was identified. A 15 blade was utilized sharply revised skin margins. Dissection was then carried down deep to the deep fascia with exposure of the extensor and flexor tendon and tendon sheath multiple sites, both proximally and distally. All necrotic nonviable infected tissue sharply evacuated from the wound bed. The dissection was then carried down to the distal fifth metatarsal, where the periosteum was incised reflected. Sagittal bone saw was utilized performed through and through osteotomy. The distal osseous segment was freed and passed from the operative field. Specimen was sent for both microbiologic and pathologic inspection. The open wound was then irrigated with 3 L of normal sterile saline infusion 50,000 units of bacitracin. Following this, the foot was redraped and the surgeon's top gloves were exchanged for clean gloves. Any bleeding vessels identified were cauterized or ligated as encountered. Nipple was then packed with iodoform and 2-0 nylon retention sutures were placed. The foot was dressed with an EBD pad Kerlix and an Brian wrap. The patient was noted to tolerate both procedure and anesthesia well and the patient was transported from the operating room to recovery with vital signs stable.
[2017-01-16 06:34] VITALS: BP 138/84
--- NOTE | 2017-01-16 07:18 | PN- Housestaff ---
WALDO GONZALEZ MD 01/16/17 0718: Subjective Follow-up For: Right foot pain Cellulitis versus osteomyelitis Subjective: Patient seen and examined. He is seen lying flat in bed resting comfortably. He appears to be in no acute distress. Patient reports moderate/severe pain in his right foot overnight that is well controlled with oral percocet, he states that morphine does not seem to help. He otherwise admits to feeling "a little better " today and denies any new subjective complaints. Additionally he denies any fever, chills, chest pain, palpitations, shortness of breath, cough, nausea, vomiting, diarrhea. No overnight events reported. Review of Systems Constitutional: Reports: see HPI. Objective Last 24 Hrs of Vital Signs/I&O Vital Signs Date Time Temp Pulse Resp B/P B/P Pulse O2 O2 Flow FiO2 Mean Ox Delivery Rate 01/16 0634 99.1 92 18 138/84 97 Room Air 01/15 1417 98.2 79 20 108/60 97 Room Air Intake & Output 01/16 1600 01/16 0800 01/16 0000 Intake Total Output Total 600 Balance -600 Output, Urine 600 Physical Exam General Appearance: Alert, Oriented X3, Cooperative, No Acute Distress Other Physical Findings: General -well-developed, well-nourished middle-aged man in no acute distress HEENT - NCAT, PERRL, EOMI, anicteric sclera Cardio - S1, S2 w/o murmurs/gallops/rubs Resp - CTA bilaterally w/o wheezing/rhochi/crackles GI - soft, obese, nontender, nondistended, bowel sounds present Neuro - Awake and alert, CN II - XII grossly intact Extremities - right foot wrapped in sterile surgical dressing and halima banadge without any obvious drainage, normal pulses, no cyanosis/clubbing/edema Current Medications: Current Medications Sig/[place] Start time Last Medication Dose Route Stop Time Status Admin Acetaminophen 650 MG Q6P PRN 01/14 2345 AC PO Ceftazidime 1,000 MG IQ8 01/15 0800 AC 01/16 IV 0903 Clindamycin 600 MG IQ8 01/15 0800 AC 01/16 Dextrose/Water 50 ML IV 0903 Docusate Sodium 100 MG DAILY 01/16 1000 AC PO Fentanyl Citrate 100 MCG .ST-MED ONE 01/15 2014 DC IM 01/15 2015 Ibuprofen 600 MG Q6P PRN 01/14 2345 AC 01/15 PO 0038 Insulin Aspart 0 AT BEDTIME 01/16 2200 AC SC Insulin Aspart 0 TIDAC 01/16 0800 AC 01/16 SC 0902 Insulin Aspart 0 TIDAC 01/15 0800 DC 01/15 SC 0839 Insulin Detemir 18 UNITS BID 01/16 1000 AC 01/16 SC 0902 Insulin Detemir 10 UNITS BID 01/14 2358 DC 01/15 SC 2154 Insulin Human Regular 10 UNITS .STK-MED ONE 01/16 0048 DC IV 01/16 0049 Insulin Human Regular 0 Q6 01/15 1800 DC 01/16 SC 0048 Levothyroxine Sodium 0.1 MG DAILY AC 01/15 0700 AC 01/16 PO 0604 Midazolam HCl 2 MG .STK-MED ONE 01/15 2014 DC IM 01/15 2015 Morphine Sulfate 2 MG Q6P PRN 01/15 1315 DC 01/16 IV 0604 Oxycodone/ 2 TAB Q6P PRN 01/16 1000 AC Acetaminophen PO Oxycodone/ 1 TAB Q6P PRN 01/14 2345 DC 01/16 Acetaminophen PO 0903 Polyethylene Glycol 17 GM DAILY 01/16 1000 AC PO Pregabalin 150 MG BID 01/14 2358 AC 01/16 PO 0902 Senna/Docusate Sodium 2 TAB DAILY 01/16 1000 AC PO Last 24 Hrs of Lab/Pelon Results Last 24 Hrs of Labs/Mics: Laboratory Tests 01/16/17 0827: CBC w Diff NO MAN DIFF REQ, RBC 3.56 L, MCV 88.2, MCH 30.5, RDW 13.7, MPV 10.5 H, Gran % 77.6 H, Lymphocytes % 15.1 L, Monocytes % 6.4, Eosinophils % 0.6, Basophils % 0.3, Absolute Granulocytes 6.7 H, Absolute Lymphocytes 1.3, Absolute Monocytes 0.6, Absolute Eosinophils 0, Absolute Basophils 0, PUBS MCHC 34.6 Microbiology 01/15 2047 EXTREMITIE: Gross Specimen Examination - RECD 01/15 2047 EXTREMITIE: Gram Stain - RECD Assessment/Plan Assessment: 46-year-old man with multiple medical problems significant for poorly controlled insulin-dependent diabetes mellitus, diabetic peripheral neuropathy, and recent hospitalization for puncture wound cellulitis treated with antibiotics in for evaluation of recurrent right lower extremity pain with associated fever, chills and weakness and a new area of erythematous induration. Hosptal Day 2 Patient tolerated the surgical debridement of his right foot yesterday, OR cultures still pending. He is continued on Clindamycin/Ceftazidime and remain afebrile without leukocytosis. Blood sugars remain elevated, most likely due to the active infection. He is continued on a diabetic diet and insuling per Endocrinology consultants recommendations. Morphine was discontinued as it was not relieving patients pain and percocet was increased. Right Foot Osteomyelitis Patient was admitted to [facility] from 12/16/16 - 12/18/16 after stepping on a "shelli nail" that punctured his rubber shoe. He was treated with intravenous Ceftazidime and discharged to home on oral ciprofloxacin to complete a 10 day total antibiotic course. XR/MRI foot during this admission did not demonstrate osteomyelitis. He had clinical improvement with antibiotics. Patient reports pain and redness in his same extremity for four days prior to admission with assocaited fever, chills and weaknesss. Patient was febrile to 101.6 and received one dose of Unasyn. WBC 10.8, ESR 120. XR did not demonstrate any osteomyeltis. Patient was admitted to the general medicine floor for further evaluation. MRI of right demonstrated findings suggestive of osteomyeltis. Patient was continued on antibiotics, made NPO, and taken in for surgical debridement. -General Medicine -Clindamycin 600mg IV Q8H -Ceftazidime 1g IV Q8H -Podiatry Consult -Infectious Disease Consult -Follow up cultures & sensitivities Poorly Controlled Insulin-dependent Diabetes Mellitus Patient was discharged to home with diabetic supplies and instruction to establish care with a PCP with a referral made to [facility] on recent hospital discharge. Patient was lost to follow up but reports medication compliance. -Accucheck TIDAC/HS -Hold oral hypoglycemics -Novolog SSI -Levemir 18 units SC twice a day -Endocrinology consult Peripheral neuropathy-Lyrica 150 mg by mouth twice a day Hypothyroidism-Synthroid 10 g by mouth daily Pain Plan-Acetaminophen/Percocet/morphine Diet-nothing by mouth for surgery, restart diabetic diet after DVT prophylaxis-subcutaneous heparin CODE STATUS-full code Problem List: 1. Osteomyelitis of right foot Pain Ratin Pain Location: Right foot Pain Goal: Pain 7 or less Pain Plan: See assessment Tomorrow's Labs & Rationales: CBC - osteomyelitis ADRI COLLAZO,DIEGO 01/16/17 1241: Attending MD Review Statement Attending Statement Attending MD Statement: examined this patient, discuss w/resident/PA/SOFTWARE APPLICATIONS DEVELOPER, agreed w/resident/PA/SOFTWARE APPLICATIONS DEVELOPER, reviewed EMR data (avail), discussed with nursing, discussed with case mgmt, amended to note Attending Assessment/Plan: Patient seen and examined. Status post fifth partial ray resection done yesterday. Currently doing well. Afebrile and hemodynamically stable. Denies any chills or Reigle is today. Complains of pain at the surgical site. Reports poor pain control with morphine. On examination he has an intact surgical dressing over the right foot. Problems: 1. Left foot osteomyelitis. 2. Insulin-dependent diabetes mellitus 3. Chronic thrombocytopenia. Plan: -Follow-up with the crime prevention police officer service regarding any plans for revision surgery next week. -Continue current course of antibiotic therapy pending results of OR cultures. -He will likely require a PICC line next week and a prolonged course of antibiotic therapy. -History thrombocytopenia is improving. It is presumed to be secondary to sepsis. Recommend hematology consultation if levels do not improve to normal limits. -Continue current insulin regimen as directed by the endocrinology service. Follow-up for discharge recommendations as his hemoglobin A1c level is markedly elevated at 11. -Optimize pain control by increasing Percocet to 2 tablets as needed for pain control. -Giving his history of poorly controlled diabetes, patient is at high risk for peripheral vascular disease. If This is indeed the case he is also at high risk for poor wound healing. Recommend obtaining an arterial Doppler and consultation with vascular surgery service if patient does have abnormal findings. -No indication for repeat CBC or chemistry tomorrow.
--- NOTE | 2017-01-16 07:41 | PN- Diabetes ---
Assessment/Plan Assessment: The patient feels better today. He was taken to the OR yesterday by Dr. Gandhi and had a partial fifth ray resection for osteomyelitis. The patient went to the OR about 8:30 last night. Yesterday his blood sugars were high but he was not on the insulin regimen because he was nothing by mouth most of the day. Today will be the first day of the regimen including Levemir 18 units twice a day and NovoLog sliding scale before meals which was adjusted yesterday. Plan: Suggest continue the present insulin regimen. We will check the patient sugar 4 times a day today and further adjustments may be necessary. Antibiotics as per Baldev Proctor MD. Await cultures. Subjective Subjective: Feels improved Review of Systems Constitutional: Denies: chills, fever. Cardiovascular: Denies: chest pain. Respiratory: Denies: cough. Gastrointestinal: Denies: nausea, vomiting. Skin: Reports: no symptoms. Objective Last 24 Hrs of Vital Signs/I&O Vital Signs Date Time Temp Pulse Resp B/P B/P Pulse O2 O2 Flow FiO2 Mean Ox Delivery Rate 01/16 0634 99.1 92 18 138/84 97 Room Air 01/15 1417 98.2 79 20 108/60 97 Room Air Intake & Output 01/16 0800 01/16 0000 01/15 1600 Intake Total Output Total 600 250 Balance -600 -250 Output, Urine 600 250 Vital Signs Date Time Temp Pulse Resp B/P B/P Pulse O2 O2 Flow FiO2 Mean Ox Delivery Rate 01/16 0634 99.1 92 18 138/84 97 Room Air 01/15 1417 98.2 79 20 108/60 97 Room Air Intake & Output 01/16 0800 01/16 0000 01/15 1600 Intake Total Output Total 600 250 Balance -600 -250 Output, Urine 600 250 Physical Exam General Appearance: alert, awake, comfortable Head: normal appearance Neck: normal inspection Respiratory: normal breath sounds Cardiovascular: regular rate/rhythm Extremities: right foot bandaged Current Medications: Current Medications Sig/[place] Start time Last Medication Dose Route Stop Time Status Admin Acetaminophen 650 MG Q6P PRN 01/14 2345 AC PO Ceftazidime 1,000 MG IQ8 01/15 0800 AC 01/16 IV 0003 Clindamycin 600 MG IQ8 01/15 0800 AC 01/16 Dextrose/Water 50 ML IV 0001 Fentanyl Citrate 100 MCG .STK-MED ONE 01/15 2014 DC IM 01/15 2015 Ibuprofen 600 MG Q6P PRN 01/14 2345 AC 01/15 PO 0038 Insulin Aspart 0 AT BEDTIME 01/16 2200 AC SC Insulin Aspart 0 TIDAC 01/16 0800 AC SC Insulin Aspart 0 TIDAC 01/15 0800 DC 01/15 SC 0839 Insulin Detemir 18 UNITS BID 01/16 1000 AC SC Insulin Detemir 10 UNITS BID 01/14 2358 DC 01/15 SC 2154 Insulin Human Regular 0 Q6 01/15 1800 DC 01/16 SC 0048 Levothyroxine Sodium 0.1 MG DAILY AC 01/15 0700 AC 01/16 PO 0604 Midazolam HCl 2 MG .STK-MED ONE 01/15 2014 DC IM 01/15 2015 Morphine Sulfate 2 MG Q6P PRN 01/15 1315 AC 01/16 IV 0604 Oxycodone/ 1 TAB Q6P PRN 01/14 2345 AC 01/15 Acetaminophen PO 2356 Pregabalin 150 MG BID 01/14 2358 01/15 PO 2152
[2017-01-16 08:51] LABS: ABSOLUTE BASOPHIL COUNT 0 /CUMM (0.0-0.2); ABSOLUTE EOSINOPHIL COUNT 0 /CUMM (0.0-0.7); ABSOLUTE GRANULOCYTE CT 6.7 /CUMM (1.4-6.5); ABSOLUTE LYMPH COUNT 1.3 /CUMM (1.2-3.4); ABSOLUTE MONOCYTE COUNT 0.6 /CUMM (0.10-0.60); BASOPHIL % 0.3 % (0.0-2.0); EOSINOPHIL % 0.6 % (0-5); GRANULOCYTE % 77.6 % (42.2-75.2); HEMATOCRIT 31.4 % (42-52); MEAN CORPUSCULAR HGB 30.5 PG (27.0-31.0); MEAN CORPUSCULAR HGB CONC 34.6 G/DL (33.0-37.0); MEAN CORPUSCULAR VOLUME 88.2 FL (80.0-94.0); MEAN PLATELET VOLUME 10.5 FL (7.4-10.4); PLATELET COUNT 124 /CUMM (130-400); RBC DISTRIBUTION WIDTH 13.7 % (11.5-14.5); RED BLOOD CELL CT 3.56 /CUMM (4.70-6.10); WHITE BLOOD CELL COUNT 8.6 /CUMM (4.8-10.8)
--- NOTE | 2017-01-16 11:54 | PN- Infect Dx ---
Subjective Subjective: Afebrile without complaints Objective Last 24 Hrs of Vital Signs/I&O Vital Signs Date Time Temp Pulse Resp B/P B/P Pulse O2 O2 Flow FiO2 Mean Ox Delivery Rate 01/16 0634 99.1 92 18 138/84 97 Room Air 01/15 1417 98.2 79 20 108/60 97 Room Air Intake & Output 01/16 1600 01/16 0800 01/16 0000 Intake Total Output Total 600 Balance -600 Output, Urine 600 Physical Exam Other Physical Findings: He appears comfortable in no acute distress Extremities right foot dressing intact Results Last 24 Hours of Lab Results: Laboratory Tests 01/16 827 Hematology CBC w Diff NO MAN DIFF REQ WBC (4.8 - 10.8 /CUMM) 8.6 RBC (4.70 - 6.10 /CUMM) 3.56 L Hgb (14.0 - 18.0 G/DL) 10.9 L Hct (42 - 52 %) 31.4 L MCV (80.0 - 94.0 FL) 88.2 MCH (27.0 - 31.0 PG) 30.5 RDW (11.5 - 14.5 %) 13.7 Plt Count (130 - 400 /CUMM) 124 L MPV (7.4 - 10.4 FL) 10.5 H Gran % (42.2 - 75.2 %) 77.6 H Lymphocytes % (20.5 - 51.1 %) 15.1 L Monocytes % (1.7 - 9.3 %) 6.4 Eosinophils % (0 - 5 %) 0.6 Basophils % (0.0 - 2.0 %) 0.3 Absolute Granulocytes (1.4 - 6.5 /CUMM) 6.7 H Absolute Lymphocytes (1.2 - 3.4 /CUMM) 1.3 Absolute Monocytes (0.10 - 0.60 /CUMM) 0.6 Absolute Eosinophils (0.0 - 0.7 /CUMM) 0 Absolute Basophils (0.0 - 0.2 /CUMM) 0 PUBS MCHC (33.0 - 37.0 G/DL) 34.6 Last 24 Hours of Pelon Results: Blood cultures January 14 negative OR culture labeled right fifth toe January 15 pending Assessment/Plan Impression: Stable status post right fifth toe amputation yesterday for presumed osteomyelitis, with OR culture pending. He has defervesced and white blood cell count remains normal on empiric treatment with Clindamycin and Ceftazidime. As this infection occurred following a puncture wound with a nail through his sandal the possibility of Pseudomonas must be considered, and he can be continued on the current antibiotics pending OR cultures. Suggestion: 1. Follow-up OR cultures 2. Consider Vascular surgery evaluation 3. Continue Clindamycin and Ceftazidime pending above
[2017-01-16 14:12] VITALS: BP 100/64
--- NOTE | 2017-01-16 17:12 | ULTRASOUND REPORT ---
EXAMINATION: COLOR-FLOW DUPLEX IMAGING OF THE BILATERAL LOWER EXTREMITY ARTERIAL SYSTEM. VELOCITY MEASUREMENTS THROUGHOUT THE FEMORAL ARTERIES WITH PERIPHERAL ARTERIAL TESTING. CLINICAL INFORMATION: This a 46-year-old male with a nonhealing right foot ulcer. Status post surgery and toe amputation on the right. Peripheral arterial disease. Diabetes. Right-sided claudication. Interventional Radiologist: Anthony Vides M.D., F.S.I.R., F.A.C.R. RIGHT FEMORAL RUNOFF VELOCITIES: The right common femoral artery measures 137 cm/s and triphasic. The right profunda femoral artery is 76 cm/s and is triphasic. Right proximal superficial femoral artery measures 108 cm/s and triphasic. Mid superficial femoral artery is 116 cm/s and triphasic. Distal right superficial femoral artery measures 102 cm/s and is triphasic. Right popliteal velocity measures 82 cm/s and is triphasic. The posterior tibial artery velocity measures 77 cm/s and was monophasic. The anterior tibial artery velocity measures 43 cm/s and is monophasic. The dorsalis pedis is 98 cm/s and monophasic. LEFT FEMORAL RUNOFF VELOCITIES: The left common femoral artery measures 73 cm/s and triphasic. The left profunda femoral artery is 69 cm/s and is triphasic. Left proximal superficial femoral artery measures 95 cm/s and triphasic. Mid superficial femoral artery is 93 cm/s and triphasic. Distal left superficial femoral artery measures 86 cm/s and is triphasic. Left popliteal velocity measures 62 cm/s and is biphasic. The posterior tibial artery velocity measures 82 cm/s and was triphasic. The anterior tibial artery was not visualized. The dorsalis pedis measure 98 cm/s and was triphasic. IMPRESSION: 1. There are decreased velocities within the distal tibial vessels suggesting tibial vessel disease. 2. No major vessel inflow disease is demonstrated.
[2017-01-16 22:34] VITALS: BP 122/58
[2017-01-17 07:28] VITALS: BP 122/70
--- NOTE | 2017-01-17 07:52 | PN- Housestaff ---
WADLO GONZALEZ MD 01/17/17 0751: Subjective Follow-up For: Right foot pain Osteomyelitis Subjective: Patient seen and examined. He is seen lying flat in bed resting comfortably. He appears to be in no acute distress. He reports that his numbness/tingling in his feet is worse. He states that his pain is well controlled on the current medication regimen. He denies any new subjective complaints. Additionally he denies any fever, chills, chest pain, shortness of breath, nausea, vomiting, diarrhea. No overnight events reported. Review of Systems Constitutional: Reports: see HPI. Objective Last 24 Hrs of Vital Signs/I&O Vital Signs Date Time Temp Pulse Resp B/P B/P Pulse O2 O2 Flow FiO2 Mean Ox Delivery Rate 01/17 1432 98.1 93 20 126/61 97 Room Air 01/17 0728 98.6 90 18 122/70 96 Room Air 01/16 2234 97.6 89 22 122/58 99 Room Air Intake & Output 01/17 1600 01/17 0800 01/17 0000 Intake Total 1400 240 700 Output Total 650 1300 1200 Balance 750 -1060 -500 Intake, IV 50 100 Intake, Oral 1350 240 600 Output, Urine 650 1300 1200 Patient 109.769 kg Weight Physical Exam General Appearance: Alert, Oriented X3, Cooperative, No Acute Distress Other Physical Findings: General -well-developed, well-nourished middle-aged man in no acute distress HEENT - NCAT, PERRL, EOMI, anicteric sclera Cardio - S1, S2 w/o murmurs/gallops/rubs Resp - CTA bilaterally w/o wheezing/rhochi/crackles GI - soft, obese, nontender, nondistended, bowel sounds present Neuro - Awake and alert, CN II - XII grossly intact Extremities - right foot wrapped in sterile surgical dressing and halima banadge without any obvious drainage, normal pulses, no cyanosis/clubbing/edema Current Medications: Current Medications Sig/Quincy Start time Last Medication Dose Route Stop Time Status Admin Acetaminophen 650 MG Q6P PRN 01/14 2345 AC PO Ceftazidime 1,000 MG IQ8 01/15 0800 AC 01/17 IV 1616 Clindamycin 600 MG IQ8 01/15 0800 AC 01/17 Dextrose/Water 50 ML IV 1616 Docusate Sodium 100 MG DAILY 01/16 1000 AC 01/17 PO 0900 Ibuprofen 600 MG Q6P PRN 01/14 2345 AC 01/15 PO 0038 Insulin Aspart 0 AT BEDTIME 01/16 2200 AC SC Insulin Aspart 0 TIDAC 01/16 0800 AC 01/17 SC 1718 Insulin Detemir 18 UNITS BID 01/16 1000 AC 01/17 SC 0859 Levothyroxine Sodium 0.1 MG DAILY AC 01/15 0700 AC 01/17 PO 0533 Oxycodone/ 2 TAB Q6P PRN 01/16 1000 AC 01/17 Acetaminophen PO 1240 Polyethylene Glycol 17 GM DAILY 01/16 1000 AC 01/17 PO 0859 Pregabalin 150 MG BID 01/14 2358 AC 01/17 PO 0900 Senna/Docusate Sodium 2 TAB DAILY 01/16 1000 AC 01/16 PO 1230 Assessment/Plan Assessment: 46-year-old man with multiple medical problems significant for poorly controlled insulin-dependent diabetes mellitus, diabetic peripheral neuropathy, and recent hospitalization for puncture wound cellulitis treated with antibiotics in for evaluation of recurrent right lower extremity pain with associated fever, chills and weakness and a new area of erythematous induration. Hosptal Day 3 Patient remains afebrile without leukocytosis while on intravenous Clindamycin/ Ceftazidime. OR cultures demonstrate growth of Staph aureus with sensitivites pending. Antibiotics will be narrowed pending final culture results. He is to be continued on the current regimen and will be taken to the OR with podiatry on thursday for revision. Blood sugars remain stable on the current insulin regimen. Right Foot Osteomyelitis Patient was admitted to [facility] from 12/16/16 - 12/18/16 after stepping on a "shelli nail" that punctured his rubber shoe. He was treated with intravenous Ceftazidime and discharged to home on oral ciprofloxacin to complete a 10 day total antibiotic course. XR/MRI foot during this admission did not demonstrate osteomyelitis. He had clinical improvement with antibiotics. Patient reports pain and redness in his same extremity for four days prior to admission with assocaited fever, chills and weaknesss. Patient was febrile to 101.6 and received one dose of Unasyn. WBC 10.8, ESR 120. XR did not demonstrate any osteomyeltis. Patient was admitted to the general medicine floor for further evaluation. MRI of right demonstrated findings suggestive of osteomyeltis. Patient was continued on antibiotics, made NPO, and taken in for surgical debridement. -General Medicine -Clindamycin 600mg IV Q8H -Ceftazidime 1g IV Q8H -Podiatry Consult -Infectious Disease Consult -Follow up cultures & sensitivities Poorly Controlled Insulin-dependent Diabetes Mellitus Patient was discharged to home with diabetic supplies and instruction to establish care with a PCP with a referral made to [facility] on recent hospital discharge. Patient was lost to follow up but reports medication compliance. -Accucheck TIDAC/HS -Hold oral hypoglycemics -Novolog SSI -Levemir 18 units SC twice a day -Endocrinology consult Peripheral neuropathy-Lyrica 150 mg by mouth twice a day Hypothyroidism-Synthroid 10 g by mouth daily Pain Plan-Acetaminophen/Percocet/morphine Diet-nothing by mouth for surgery, restart diabetic diet after DVT prophylaxis-subcutaneous heparin CODE STATUS-full code Problem List: 1. Osteomyelitis of right foot Pain Ratin Pain Location: Right foot Pain Goal: Pain 7 or less Pain Plan: See assessment Tomorrow's Labs & Rationales: CBC - leukocytosis FRANCIS COLLAZO,[facility] 01/17/17 1304: Attending MD Review Statement Attending Statement Attending MD Statement: examined this patient, discuss w/resident/PA/SWAGING MACHINE OPERATOR, agreed w/resident/PA/SWAGING MACHINE OPERATOR, discussed with family, reviewed EMR data (avail), discussed with nursing, discussed with case mgmt, reviewed images, amended to note Attending Assessment/Plan: Patient seen and examined. Denies any complaints. Continue IV antibiotics for now. Patient will be going to the OR with Dr. Gandhi on Thursday. Continue current antidiabetic regimen. Appreciate endocrine input.
--- NOTE | 2017-01-17 11:41 | PN- Diabetes ---
Assessment/Plan Assessment: The patient feels better today. He is eating okay. He is presently on 18 units of Levemir twice a day. He is also on sliding scale NovoLog sliding with 8 units for 80-150. Fingerstick blood sugars yesterday were 200 before breakfast, 320 before lunch, 331 and before dinner, and 207 at bedtime. This morning his fingerstick blood sugar is 181. Plan: Suggest continue the present insulin regimen. His blood sugars seem to be coming down. Other adjustments may be necessary in the future. Subjective Subjective: feels okay Objective Last 24 Hrs of Vital Signs/I&O 130/70 Physical Exam General Appearance: alert, awake, comfortable Head: normal appearance Respiratory: normal breath sounds Abdomen: normal bowel sounds Skin: right foot bandaged
[2017-01-17 14:32] VITALS: BP 126/61
--- NOTE | 2017-01-17 15:18 | PN- Infect Dx ---
Subjective Subjective: Afebrile without complaints Objective Last 24 Hrs of Vital Signs/I&O Vital Signs Date Time Temp Pulse Resp B/P B/P Pulse O2 O2 Flow FiO2 Mean Ox Delivery Rate 01/17 1432 98.1 93 20 126/61 97 Room Air 01/17 0728 98.6 90 18 122/70 96 Room Air 01/16 2234 97.6 89 22 122/58 99 Room Air Intake & Output 01/17 1600 01/17 0800 01/17 0000 Intake Total 1400 240 700 Output Total 650 1300 1200 Balance 750 -1060 -500 Intake, IV 50 100 Intake, Oral 1350 240 600 Output, Urine 650 1300 1200 Patient 242 lb Weight Physical Exam Other Physical Findings: He appears comfortable in no acute distress Extremities right foot dressing intact Results Last 24 Hours of Lab Results: No labs from today Last 24 Hours of Pelon Results: Blood cultures 2 January 14 negative OR culture labeled right fifth toe bone positive for Staph aureus Recent Imaging Studies: Arterial Dopplers both lower extremities January 16 revealed decreased velocities within the distal tibial vessels suggesting tibial vessel disease with no major vessel inflow disease Assessment/Plan Impression: Stable status post right fifth toe amputation 2 days ago for osteomyelitis, with OR culture so far growing Staph aureus. He remains afebrile with white blood cell count normal on empiric treatment with Clindamycin and Ceftazidime, which can be continued pending final cultures. He is scheduled for a return to the OR next week for further debridement. Suggestion: 1. Follow-up final OR culture 2. Await return to the OR next week 3. Consider need for vascular surgery evaluation 4. Continue Clindamycin and Ceftazidime pending final culture
[2017-01-17 23:19] VITALS: BP 104/65
[2017-01-18 06:01] VITALS: BP 110/58
--- NOTE | 2017-01-18 08:11 | PN- Housestaff ---
WALDO GONZALEZ MD 01/18/17 0811: Subjective Follow-up For: Right foot pain Osteomyelitis Subjective: Patient seen and examined. He is seen lying flat in bed resting comfortably. He appears to be in no acute distress. He reports that his pain is well controlled, but admits to persistent pins and needles that he attributes to his "neuropathy ". Otherwise he denies any new subjective complaints. Additionally he denies any headache, fever, chills, chest pain, shortness of breath, nausea, vomiting, diarrhea. No overnight events reported. Review of Systems Constitutional: Reports: see HPI. Objective Last 24 Hrs of Vital Signs/I&O Vital Signs Date Time Temp Pulse Resp B/P B/P Pulse O2 O2 Flow FiO2 Mean Ox Delivery Rate 01/18 0601 98.2 84 18 110/58 96 Room Air 01/17 2319 98.5 83 20 104/65 95 Room Air 01/17 1432 98.1 93 20 126/61 97 Room Air Intake & Output 01/18 1600 01/18 0800 01/18 0000 Intake Total 290 480 Output Total 475 350 Balance -185 130 Intake, IV 50 Intake, Oral 240 480 Output, Urine 475 350 Physical Exam General Appearance: Alert, Oriented X3, Cooperative, No Acute Distress Other Physical Findings: General -well-developed, well-nourished middle-aged man in no acute distress HEENT - NCAT, PERRL, EOMI, anicteric sclera Cardio - S1, S2 w/o murmurs/gallops/rubs Resp - CTA bilaterally w/o wheezing/rhochi/crackles GI - soft, obese, nontender, nondistended, bowel sounds present Neuro - Awake and alert, CN II - XII grossly intact Extremities - right foot wrapped in sterile surgical dressing and halima banadge without any obvious drainage, normal pulses, no cyanosis/clubbing/edema Current Medications: Current Medications Sig/[place]incy Start time Last Medication Dose Route Stop Time Status Admin Acetaminophen 650 MG Q6P PRN 01/14 2345 AC PO Ceftazidime 1,000 MG IQ8 01/15 0800 DC 01/18 IV 0812 Clindamycin 600 MG IQ8 01/15 0800 DC 01/17 Dextrose/Water 50 ML IV 232 Docusate Sodium 100 MG DAILY 01/16 1000 AC 01/18 PO 0904 Ibuprofen 600 MG Q6P PRN 01/14 2345 AC 01/15 PO 0038 Insulin Aspart 0 TIDAC/HS 01/18 1700 UNVr SC Insulin Aspart 0 AT BEDTIME 01/16 2200 DC 01/17 SC 2124 Insulin Aspart 0 TIDAC 01/16 0800 DC 01/18 SC 0903 Insulin Detemir 20 UNITS BID 01/18 2200 UNVr SC Insulin Detemir 18 UNITS BID 01/16 1000 DC 01/18 SC 0903 Levothyroxine Sodium 0.1 MG DAILY AC 01/15 0700 AC 01/18 PO 0555 Oxycodone/ 2 TAB Q6P PRN 01/16 1000 AC 01/17 Acetaminophen PO 1958 Polyethylene Glycol 17 GM DAILY 01/16 1000 AC 01/17 PO 0859 Pregabalin 150 MG BID 01/14 2358 AC 01/18 PO 0904 Senna/Docusate Sodium 2 TAB DAILY 01/16 1000 AC 01/18 PO 0904 Vancomycin HCl 1,500 MG Q12 01/18 2200 UNir Sodium Chloride 250 ML IV Last 24 Hrs of Lab/Pelon Results Last 24 Hrs of Labs/Mics: Laboratory Tests 01/18/17 0630: CBC w Diff NO MAN DIFF REQ, RBC 3.65 L, MCV 88.9, MCH 30.3, RDW 13.9, MPV 10.3, Gran % 66.1, Lymphocytes % 25.4, Monocytes % 5.5, Eosinophils % 2.5, Basophils % 0.5, Absolute Granulocytes 5.1, Absolute Lymphocytes 2.0, Absolute Monocytes 0.4 , Absolute Eosinophils 0.2, Absolute Basophils 0, PUBS MCHC 34.1 Assessment/Plan Assessment: 46-year-old man with multiple medical problems significant for poorly controlled insulin-dependent diabetes mellitus, diabetic peripheral neuropathy, and recent hospitalization for puncture wound cellulitis treated with antibiotics in for evaluation of recurrent right lower extremity pain with associated fever, chills and weakness and a new area of erythematous induration. Hosptal Day 4 Patient continues to remain afebrile without leukocytosis while on intravenous Clindamycin/Ceftazidime. OR cultures demonstrated growth of MRSA for which patient was placed on contact isolation and Clindamycin/Ceftazdime were discotinued in favor of Vancomycin. Patient is to return to the OR on 01/20/17 for revision. He is to have a single lumen PICC placed this week for terminal clerk antibiotic therapy. Right Foot Osteomyelitis Patient was admitted to [facility] from 12/16/16 - 12/18/16 after stepping on a "shelli nail" that punctured his rubber shoe. He was treated with intravenous Ceftazidime and discharged to home on oral ciprofloxacin to complete a 10 day total antibiotic course. XR/MRI foot during this admission did not demonstrate osteomyelitis. He had clinical improvement with antibiotics. Patient reports pain and redness in his same extremity for four days prior to admission with assocaited fever, chills and weaknesss. Patient was febrile to 101.6 and received one dose of Unasyn. WBC 10.8, ESR 120. XR did not demonstrate any osteomyeltis. Patient was admitted to the general medicine floor for further evaluation. MRI of right demonstrated findings suggestive of osteomyeltis. Patient was continued on antibiotics, made NPO, and taken in for surgical debridement. Patient was continued on intravenous Ceftazidime/Clindamycin until OR culture demonstrated growth of MRSA for which he was started on Vancomycin. -General Medicine -Contact Isolation for MRSA -Clindamycin discontinued -Ceftazidime discontinued -Vancomycin 1.5g IV Q12 started -Podiatry Consult -Infectious Disease Consult -Follow up cultures & sensitivities Poorly Controlled Insulin-dependent Diabetes Mellitus Patient was discharged to home with diabetic supplies and instruction to establish care with a PCP with a referral made to [facility] on recent hospital discharge. Patient was lost to follow up but reports medication compliance. -Accucheck TIDAC/HS -Hold oral hypoglycemics -Novolog SSI -Levemir 20 units SC twice a day -Endocrinology consult Peripheral neuropathy-Lyrica 150 mg by mouth twice a day Hypothyroidism-Synthroid 10 g by mouth daily Pain Plan-Acetaminophen/Percocet/morphine Diet-nothing by mouth for surgery, restart diabetic diet after DVT prophylaxis-subcutaneous heparin CODE STATUS-full code Problem List: 1. Osteomyelitis of right foot Pain Ratin Pain Location: Right foot Pain Goal: Pain 4 or less Pain Plan: See assessment Tomorrow's Labs & Rationales: CBC - infection BEP - vancomycin dosing FRANCIS COLLAZO,[facility] 01/18/17 1638: Attending MD Review Statement Attending Statement Attending MD Statement: examined this patient, discuss w/resident/PA/LOOP SEWER, agreed w/resident/PA/LOOP SEWER, discussed with family, reviewed EMR data (avail), discussed with nursing, discussed with case mgmt, reviewed images, amended to note Attending Assessment/Plan: Patient sitting comfortably in bed. Does not offer any complaints. Extremity culture positive for MRSA. ID input appreciated. Continue vancomycin. Patient blood sugar has been running in high 300s. Please follow-up Dr. David's recommendations. Patient will undergo further debridement on Thursday.
--- NOTE | 2017-01-18 08:24 | PN- Infect Dx ---
Subjective Subjective: Afebrile without complaints Objective Last 24 Hrs of Vital Signs/I&O Vital Signs Date Time Temp Pulse Resp B/P B/P Pulse O2 O2 Flow FiO2 Mean Ox Delivery Rate 01/18 0601 98.2 84 18 110/58 96 Room Air 01/17 2319 98.5 83 20 104/65 95 Room Air 01/17 1432 98.1 93 20 126/61 97 Room Air Intake & Output 01/18 1600 01/18 0800 01/18 0000 Intake Total 290 480 Output Total 475 350 Balance -185 130 Intake, IV 50 Intake, Oral 240 480 Output, Urine 475 350 Physical Exam Other Physical Findings: He appears comfortable in no acute distress Extremities right foot dressing intact Results Last 24 Hours of Lab Results: No labs from today Last 24 Hours of Pelon Results: Blood cultures 2 January 14 negative OR culture labeled right fifth toe bone January 15 positive for MRSA Assessment/Plan Impression: Stable status post right fifth toe amputation 3 days ago for osteomyelitis, with OR culture positive for MRSA. He remains afebrile with white blood cell count normal on Clindamycin and Ceftazidime, but, given OR cultures, his antibiotics will need to be changed. He is scheduled for a return to the OR on January 20 for further debridement. Suggestion: 1. Contact isolation 2. Await return to the OR January 20 3. Consider need for vascular surgery evaluation 4. Discontinue Clindamycin and Ceftazidime 5. Begin Vancomycin 1.5 g IV every 12 hours
[2017-01-18 09:13] LABS: ABSOLUTE BASOPHIL COUNT 0 /CUMM (0.0-0.2); ABSOLUTE EOSINOPHIL COUNT 0.2 /CUMM (0.0-0.7); ABSOLUTE GRANULOCYTE CT 5.1 /CUMM (1.4-6.5); ABSOLUTE MONOCYTE COUNT 0.4 /CUMM (0.10-0.60); BASOPHIL % 0.5 % (0.0-2.0); EOSINOPHIL % 2.5 % (0-5); GRANULOCYTE % 66.1 % (42.2-75.2); HEMATOCRIT 32.5 % (42-52); MEAN CORPUSCULAR HGB 30.3 PG (27.0-31.0); MEAN CORPUSCULAR HGB CONC 34.1 G/DL (33.0-37.0); MEAN CORPUSCULAR VOLUME 88.9 FL (80.0-94.0); MEAN PLATELET VOLUME 10.3 FL (7.4-10.4); PLATELET COUNT 151 /CUMM (130-400); RBC DISTRIBUTION WIDTH 13.9 % (11.5-14.5); RED BLOOD CELL CT 3.65 /CUMM (4.70-6.10); WHITE BLOOD CELL COUNT 7.8 /CUMM (4.8-10.8)
--- NOTE | 2017-01-18 11:00 | PN- Diabetes ---
Assessment/Plan Assessment: The patient feels better today. He is eating okay. He is presently on 18 units of Levemir twice a day. He is also on sliding scale NovoLog sliding with 6 units for 80-150. The patient sugars became very high late in the day yesterday. His fasting sugar was 181, before lunch 261, before dinner 373, and at bedtime 322. The patient has been drinking Powerade when he is thirsty which has 22 g of sugar per 12 ounces serving. This has contributed to elevation of his blood sugar. He also has been eating Pringles for a snack Plan: Suggest increase the patient's Levemir to 20 units twice a day. The patient needs to discontinue Powerade and drink water when he is thirsty. He has also been eating a lot of Pringles which is not a good snack choice for him. . We will increase the patient's sliding scale NovoLog before meals to be 80- 150 give 8 units NovoLog, 151-200 give 10 units, 201-250 give 12 units, 251-300 give 114 units, 301-350 give 16 units, 351-400 give 18 units. bedtime sliding-scale NovoLog can stay the same. The patient needs a dietary consult so that he makes better choices as far as what he is eating and drinking. Subjective Subjective: Feels okay Review of Systems Constitutional: Denies: chills, fever. Cardiovascular: Denies: chest pain. Respiratory: Denies: cough, short of breath. Gastrointestinal: Denies: abdominal pain, nausea. Neurological/Psychological: Reports: no symptoms. Objective Last 24 Hrs of Vital Signs/I&O Vital Signs Date Time Temp Pulse Resp B/P B/P Pulse O2 O2 Flow FiO2 Mean Ox Delivery Rate 01/18 0601 98.2 84 18 110/58 96 Room Air 01/17 2319 98.5 83 20 104/65 95 Room Air 01/17 1432 98.1 93 20 126/61 97 Room Air Intake & Output 01/18 1600 01/18 0800 01/18 0000 Intake Total 290 480 Output Total 475 350 Balance -185 130 Intake, IV 50 Intake, Oral 240 480 Output, Urine 475 350 Vital Signs Date Time Temp Pulse Resp B/P B/P Pulse O2 O2 Flow FiO2 Mean Ox Delivery Rate 01/18 601 98.2 84 18 110/58 96 Room Air 04/22 2319 98.5 83 20 104/65 95 Room Air 01/17 1432 98.1 93 20 126/61 97 Room Air Intake & Output 01/18 1600 01/18 0800 01/18 0000 Intake Total 290 480 Output Total 475 350 Balance -185 130 Intake, IV 50 Intake, Oral 240 480 Output, Urine 475 350 Physical Exam General Appearance: alert, awake, comfortable Neck: normal inspection Respiratory: normal breath sounds Cardiovascular: regular rate/rhythm Extremities: right foot bandage Current Medications: Current Medications Sig/Quincy Start time Last Medication Dose Route Stop Time Status Admin Acetaminophen 650 MG Q6P PRN 01/14 2345 AC PO Ceftazidime 1,000 MG IQ8 01/15 0800 AC 01/18 IV 0812 Clindamycin 600 MG IQ8 01/15 0800 AC 01/17 Dextrose/Water 50 ML IV 2321 Docusate Sodium 100 MG DAILY 01/16 1000 AC 01/18 PO 0904 Ibuprofen 600 MG Q6P PRN 01/14 2345 AC 01/15 PO 0038 Insulin Aspart 0 AT BEDTIME 01/16 2200 AC 01/17 SC 2124 Insulin Aspart 0 TIDAC 01/16 0800 AC 01/18 SC 0903 Insulin Detemir 18 UNITS BID 01/16 1000 AC 01/18 SC 0903 Levothyroxine Sodium 0.1 MG DAILY AC 01/15 0700 AC 01/18 PO 0555 Oxycodone/ 2 TAB Q6P PRN 01/16 1000 AC 01/17 Acetaminophen PO 1958 Polyethylene Glycol 17 GM DAILY 01/16 1000 AC 01/17 PO 0859 Pregabalin 150 MG BID 01/14 2358 AC 01/18 PO 0904 Senna/Docusate Sodium 2 TAB DAILY 01/16 1000 AC 01/18 PO 0904
[2017-01-18 14:47] VITALS: BP 106/60
[2017-01-18 21:55] VITALS: BP 118/80
[2017-01-19 06:28] VITALS: BP 110/74
--- NOTE | 2017-01-19 07:12 | PN- Housestaff ---
WALDO GONZALEZ MD 01/19/17 0711: Subjective Follow-up For: Right foot pain Osteomyelitis Subjective: Patient seen and examined. He is seen lying flat in bed resting comfortably. He appears to be in no acute distress. He reports that the pain in his legs is persistent with associated numbness and tingling that he attributes to her "neuropathy". Otherwise he feels fine and denies any new subjective complaints. Additionally he denies any headache, fever, chills, chest pain, shortness of breath, nausea, vomiting, diarrhea. No overnight events reported. Review of Systems Constitutional: Reports: see HPI. Objective Last 24 Hrs of Vital Signs/I&O Vital Signs Date Time Temp Pulse Resp B/P B/P Pulse O2 O2 Flow FiO2 Mean Ox Delivery Rate 01/20 628 98.1 77 20 110/74 93 01/18 2155 98.3 86 20 118/80 98 Room Air Intake & Output 01/19 1600 01/19 0800 01/19 0000 Intake Total 800 Output Total Balance 800 Intake, Oral 800 Physical Exam General Appearance: Alert, Oriented X3, Cooperative, No Acute Distress Other Physical Findings: General -well-developed, well-nourished middle-aged man in no acute distress HEENT - NCAT, PERRL, EOMI, anicteric sclera Cardio - S1, S2 w/o murmurs/gallops/rubs Resp - CTA bilaterally w/o wheezing/rhochi/crackles GI - soft, obese, nontender, nondistended, bowel sounds present Neuro - Awake and alert, CN II - XII grossly intact Extremities - right foot wrapped in sterile surgical dressing and halima banadge without any obvious drainage, normal pulses, no cyanosis/clubbing/edema Current Medications: Current Medications Sig/[place] Start time Last Medication Dose Route Stop Time Status Admin Acetaminophen 650 MG Q6P PRN 01/14 2345 AC PO Docusate Sodium 100 MG DAILY 01/16 1000 AC 01/19 PO 0754 Ibuprofen 600 MG Q6P PRN 01/14 2345 AC 01/19 PO 0755 Insulin Aspart 0 TIDAC/HS 01/18 1700 AC 01/19 SC 1243 Insulin Detemir 20 UNITS BID 01/18 2200 AC 01/19 SC 0909 Levothyroxine Sodium 0.1 MG DAILY AC 01/15 0700 AC 01/19 PO 0639 Oxycodone/ 2 TAB Q6P PRN 01/16 1000 AC 01/19 Acetaminophen PO 0910 Patient Medication 1 ED .STK-MED ONE 01/19 1342 [place] Teaching ED 01/19 1343 Polyethylene Glycol 17 GM DAILY 01/16 1000 AC 01/17 PO 0859 Pregabalin 150 MG BID 01/14 2358 AC 01/19 PO 0909 Senna/Docusate Sodium 2 TAB DAILY 01/16 1000 AC 01/19 PO 0754 Vancomycin HCl 1,500 MG Q12 01/18 2200 AC 01/19 Sodium Chloride 250 ML IV 0948 Last 24 Hrs of Lab/Pelon Results Last 24 Hrs of Labs/Mics: Laboratory Tests 01/19/17 1437: PT Pending, INR Pending, CBC w Diff Pending, WBC Pending, RBC Pending, Hgb Pending, Hct Pending, MCV Pending, MCH Pending, RDW Pending, Plt Count Pending, MPV Pending, PUBS MCHC Pending 01/19/17 0626: Anion Gap 11, Estimated GFR > 60, BUN/Creatinine Ratio 24.0 Assessment/Plan Assessment: 46-year-old man with multiple medical problems significant for poorly controlled insulin-dependent diabetes mellitus, diabetic peripheral neuropathy, and recent hospitalization for puncture wound cellulitis treated with antibiotics in for evaluation of recurrent right lower extremity pain with associated fever, chills and weakness and a new area of erythematous induration. Hosptal Day 5 Patient continues to remain afebrile without leukocytosis on Vancomycin. Patient is to have a PICC line placed from continued residential antibiotic therapy tomorrow morning and to be taken to the OR with Dr. Gandhi for revision of his right foot. He is made NPO overnight in anticipation of this. Vascular surgery consult placed to assess for peripheral vascular disease. Right Foot Osteomyelitis / MRSA Patient was admitted to [facility] from 12/16/16 - 12/18/16 after stepping on a "shelli nail" that punctured his rubber shoe. He was treated with intravenous Ceftazidime and discharged to home on oral ciprofloxacin to complete a 10 day total antibiotic course. XR/MRI foot during this admission did not demonstrate osteomyelitis. He had clinical improvement with antibiotics. Patient reports pain and redness in his same extremity for four days prior to admission with assocaited fever, chills and weaknesss. Patient was febrile to 101.6 and received one dose of Unasyn. WBC 10.8, ESR 120. XR did not demonstrate any osteomyeltis. Patient was admitted to the general medicine floor for further evaluation. MRI of right demonstrated findings suggestive of osteomyeltis. Patient was continued on antibiotics, made NPO, and taken in for surgical debridement. Patient was continued on intravenous Ceftazidime/Clindamycin until OR culture demonstrated growth of MRSA for which he was started on Vancomycin. -General Medicine -Contact Isolation for MRSA -Clindamycin discontinued -Ceftazidime discontinued -Vancomycin 1.5g IV Q12 started -Podiatry Consult -Infectious Disease Consult -Follow up cultures & sensitivities Poorly Controlled Insulin-dependent Diabetes Mellitus Patient was discharged to home with diabetic supplies and instruction to establish care with a PCP with a referral made to [facility] on recent hospital discharge. Patient was lost to follow up but reports medication compliance. -Accucheck TIDAC/HS -Hold oral hypoglycemics -Novolog SSI -Levemir 20 units SC twice a day -Endocrinology consult Peripheral neuropathy-Lyrica 150 mg by mouth twice a day Hypothyroidism-Synthroid 10 g by mouth daily Pain Plan-Acetaminophen/Percocet/morphine Diet-nothing by mouth for surgery, restart diabetic diet after DVT prophylaxis-subcutaneous heparin CODE STATUS-full code Problem List: 1. Osteomyelitis of right foot Pain Ratin Pain Location: Feet Pain Goal: Pain 7 or less Pain Plan: See assessment Tomorrow's Labs & Rationales: None DINA COLLAZO,CHAPO 01/19/17 1339: Attending MD Review Statement Attending Statement Attending MD Statement: examined this patient, discuss w/resident/PA/TRACK MOVING MACHINE OPERATOR, agreed w/resident/PA/TRACK MOVING MACHINE OPERATOR, reviewed EMR data (avail), discussed with nursing, discussed with case mgmt, reviewed images Attending Assessment/Plan: 86-year-old male with past medical history of diabetes who is here with a right foot infection with MRSA osteomyelitis. Endocrine is actively help us with the sugar coverage. He is going to need prolonged course of IV antibiotics for the osteo and we are going to pursue a PICC line with the plan for repeat OR with Dr. Gandhi tomorrow. We are also going to have vascular surgery eval and follow closely.
--- NOTE | 2017-01-19 07:47 | PN- Diabetes ---
Assessment/Plan Assessment: Patient into the hospital with a foot infection and uncontrolled diabetes. The patient has stopped drinking the Powerade and an is not eating. His blood sugars are starting to come down. He is on 20 units of Levemir twice a day and NovoLog sliding scale starting with 8 units for 80-150. Plan: Suggest continue the same insulin. Encourage a good diet. The patient should be seen by the dietitian. Further adjustments in his insulin regimen may be necessary.. Subjective Subjective: Feels okay Objective Last 24 Hrs of Vital Signs/I&O Vital Signs Date Time Temp Pulse Resp B/P B/P Pulse O2 O2 Flow FiO2 Mean Ox Delivery Rate 01/20 0625 98.4 85 22 132/82 94 Room Air 01/19 2154 97.8 84 20 133/79 94 Room Air 01/19 1456 98.9 80 20 104/70 95 Room Air Intake & Output 01/20 0800 01/20 0000 01/19 1600 Intake Total 1170 800 Output Total 500 700 Balance -500 470 800 Intake, IV 250 Intake, Oral 920 800 Number 0 Bowel Movements Output, Urine 500 700 Vital Signs Date Time Temp Pulse Resp B/P B/P Pulse O2 O2 Flow FiO2 Mean Ox Delivery Rate 01/20 628 98.1 77 20 110/74 93 01/18 2155 98.3 86 20 118/80 98 Room Air 01/18 1447 97.9 80 18 106/60 96 Room Air Intake & Output 01/19 0800 01/19 0000 01/18 1600 Intake Total 2300 Output Total 750 Balance 1550 Intake, IV 20 Intake, Oral 2280 Number 0 Bowel Movements Output, Urine 750 Vital Signs Date Time Temp Pulse Resp B/P B/P Pulse O2 O2 Flow FiO2 Mean Ox Delivery Rate 01/19 0628 98.1 77 20 110/74 93 01/18 2155 98.3 86 20 118/80 98 Room Air 01/18 1447 97.9 80 18 106/60 96 Room Air Intake & Output 01/19 0801/19 0000 01/18 1600 Intake Total 2300 Output Total 750 Balance 1550 Intake, IV 20 Intake, Oral 2280 Number 0 Bowel Movements Output, Urine 750 Physical Exam General Appearance: alert, awake, comfortable Head: normal appearance Neck: normal inspection Cardiovascular: regular rate/rhythm Extremities: foot bandaged Current Medications: Current Medications Sig/[place] Start time Last Medication Dose Route Stop Time Status Admin Acetaminophen 650 MG Q6P PRN 01/14 2345 AC PO Dextrose/Sodium 1,000 ML Q13H 01/20 0000 AC 01/20 Chloride IV 0152 Docusate Sodium 100 MG DAILY 01/16 1000 AC 01/19 PO 0754 Ibuprofen 600 MG .STK-MED ONE 01/19 0753 DC PO 01/19 0754 Ibuprofen 600 MG Q6P PRN 01/14 2345 DC 01/19 PO 0755 Insulin Aspart 0 TIDAC/HS 01/18 1700 DC 01/19 SC 01/20 0000 2111 Insulin Detemir 10 UNITS QPM 01/19 2200 DC 01/19 SC 01/19 2201 2112 Insulin Detemir 20 UNITS BID 01/18 2200 DC 01/19 SC 0909 Insulin Human Regular 0 Q6 01/19 2359 AC 01/20 SC 0612 Levothyroxine Sodium 0.1 MG DAILY AC 01/15 0700 AC 01/20 PO 0612 Oxycodone/ 2 TAB Q6P PRN 01/16 1000 AC 01/20 Acetaminophen PO 0613 Patient Medication 1 ED .STK-MED ONE 01/19 1342 [place] Teaching ED 01/19 1343 Polyethylene Glycol 17 GM DAILY 01/16 1000 AC 01/17 PO 0859 Pregabalin 150 MG BID 01/14 2358 AC 01/19 PO 2112 Senna/Docusate Sodium 2 TAB DAILY 01/16 1000 AC 01/19 PO 0754 Vancomycin HCl 1,500 MG Q12 01/18 2200 AC 01/19 Sodium Chloride 250 ML IV 2112 Current Medications Sig/[place]in[place] Start time Last Medication Dose Route Stop Time Status Admin Acetaminophen 650 MG Q6P PRN 01/14 2345 AC PO Ceftazidime 1,000 MG IQ8 01/15 0800 DC 01/18 IV 0812 Clindamycin 600 MG IQ8 01/15 0800 DC 01/17 Dextrose/Water 50 ML IV 2321 Docusate Sodium 100 MG DAILY 01/16 1000 AC 01/18 PO 0904 Ibuprofen 600 MG Q6P PRN 01/14 2345 AC 01/15 PO 0038 Insulin Aspart 0 TIDAC/HS 01/18 1700 AC 01/18 SC 2253 Insulin Aspart 0 AT BEDTIME 01/16 2200 DC 01/17 SC 2124 Insulin Aspart 0 TIDAC 01/16 0800 DC 01/18 SC 0903 Insulin Detemir 20 UNITS BID 01/18 2200 AC 01/18 SC 2253 Insulin Detemir 18 UNITS BID 01/16 1000 DC 01/18 SC 0903 Levothyroxine Sodium 0.1 MG DAILY AC 01/15 0700 AC 01/19 PO 0639 Oxycodone/ 2 TAB Q6P PRN 01/16 1000 AC 01/19 Acetaminophen PO 0328 Polyethylene Glycol 17 GM DAILY 01/16 1000 AC 01/17 PO 0859 Pregabalin 150 MG BID 01/14 2358 AC 01/18 PO 2252 Senna/Docusate Sodium 2 TAB DAILY 01/16 1000 AC 01/18 PO 0904 Vancomycin HCl 1,500 MG Q12 01/18 2200 AC 01/18 Sodium Chloride 250 ML IV 2252 Findings Pertinent Lab/Pelon Results: Laboratory Tests 01/19 0626 Chemistry Sodium Pending Potassium Pending Chloride Pending Carbon Dioxide Pending Anion Gap Pending BUN Pending Creatinine Pending BUN/Creatinine Ratio Pending
--- NOTE | 2017-01-19 14:43 | PN- Infect Dx ---
Subjective Subjective: Afebrile. He complains of pain from a left great toe ingrown toenail. He has no pain in the right foot. Objective Last 24 Hrs of Vital Signs/I&O Vital Signs Date Time Temp Pulse Resp B/P B/P Pulse O2 O2 Flow FiO2 Mean Ox Delivery Rate 01/20 628 98.1 77 20 110/74 93 01/18 2155 98.3 86 20 118/80 98 Room Air 01/18 1447 97.9 80 18 106/60 96 Room Air Intake & Output 01/19 1600 01/19 0800 01/19 0000 Intake Total 800 Output Total Balance 800 Intake, Oral 800 Physical Exam Other Physical Findings: He appears comfortable in no acute distress Extremities right foot dressing intact; left great toe with no inflammation Results Last 24 Hours of Lab Results: Laboratory Tests 01/19 626 Chemistry Sodium (137 - 145 mmol/L) 138 Potassium (3.5 - 5.1 mmol/L) 4.2 Chloride (98 - 107 mmol/L) 101 Carbon Dioxide (22 - 30 mmol/L) 26 Anion Gap (5 - 16) 11 BUN (9 - 20 mg/dL) 12 Creatinine (0.7 - 1.2 mg/dL) 0.5 L Estimated GFR (>60 ml/min) > 60 BUN/Creatinine Ratio (7 - 25 %) 24.0 Last 24 Hours of Pelon Results: Blood cultures 2 January 14 negative Assessment/Plan Impression: Stable status post right fifth toe amputation 4 days ago for osteomyelitis secondary to MRSA, with temperatures and white blood cell count normal now on Vancomycin. He is scheduled for a return to the OR on January 20 for further debridement and will likely require a prolonged course (i.e. 4 weeks) of IV antibiotics for residual osteomyelitis. Suggestion: 1. Await return to the OR in the a.m. 2. Podiatry input regarding his left great toe pain 3. Will likely require a PICC 4. Continue Vancomycin
[2017-01-19 14:54] LABS: ABSOLUTE BASOPHIL COUNT 0 /CUMM (0.0-0.2); ABSOLUTE EOSINOPHIL COUNT 0.3 /CUMM (0.0-0.7); ABSOLUTE GRANULOCYTE CT 5.1 /CUMM (1.4-6.5); ABSOLUTE LYMPH COUNT 1.4 /CUMM (1.2-3.4); ABSOLUTE MONOCYTE COUNT 0.4 /CUMM (0.10-0.60); BASOPHIL % 0.4 % (0.0-2.0); EOSINOPHIL % 4.4 % (0-5); GRANULOCYTE % 70.2 % (42.2-75.2); HEMATOCRIT 34.2 % (42-52); MEAN CORPUSCULAR HGB CONC 33.8 G/DL (33.0-37.0); MEAN CORPUSCULAR VOLUME 88.9 FL (80.0-94.0); MEAN PLATELET VOLUME 9.4 FL (7.4-10.4); PLATELET COUNT 187 /CUMM (130-400); RBC DISTRIBUTION WIDTH 13.9 % (11.5-14.5); RED BLOOD CELL CT 3.84 /CUMM (4.70-6.10); WHITE BLOOD CELL COUNT 7.3 /CUMM (4.8-10.8)
[2017-01-19 14:56] VITALS: BP 104/70
[2017-01-19 14:56] LABS: PT 13.5 SEC (9.4-12.5)
--- NOTE | 2017-01-19 16:29 | Cons- Vascular Surgery ---
General Information and HPI Consulting Request Date of Consult: 01/19/17 Requested By: CHAPO ARROYO MD Reason for Consult: Right foot wound History of Present Illness: 46 yo male with right foot wound. Has h/o DM, neuropathy. has chronic right foot wound. recently had I/D by podiatry. Possibly returning to OR in next few days. Pt has no pain currently. Asked to evaluate vascular status. Allergies/Medications Allergies: Coded Allergies: No Known Allergies (12/16/16) Home Med List: Blood Sugar Diagnostic (Glucose Test Strip) 1 EACH STRIP 1 BOX SC TIDAC DIABETES CHECK BLOOD SUGAR 30 MINUTES PRIOR TO EACH MEAL Dapagliflozin Propanediol (Farxiga) 5 MG TABLET 1 TAB PO DAILY DIABETES ( Reported) Insulin Detemir (Levemir) 100 UNIT/ML VIAL 10 UNITS SC BID DIABETES Insulin Lispro (Humalog Kwikpen U-100) 100 UNIT/ML INSULN.PEN 10 UNITS SC TID DM Lancets 1 EACH EACH 1 BOX SC TIDAC DIABETES CHECK BLOOD SUGAR 30 MINUTES BEFORE EACH MEAL Levothyroxine Sodium (Synthroid) 100 MCG TABLET 1 TAB PO DAILY HYPOTHYROIDISM (Reported) Lisinopril (Prinivil) 5 MG TABLET 1 TAB PO DAILY HTN (Reported) Oxycodone HCl 5 MG CAPSULE 1 CAP PO Q6P CELLULITIS Pregabalin (Lyrica) 150 MG CAPSULE 1 CAP PO BID NERVE DAMAGE (Reported) Syringe & Needle,Insulin,1 Ml (Insulin Syringe) 29 GAUGE X 7/16" DISP.SYRIN 1 BOX SC TIDAC/HS DIABETES UTILIZE WITH PREMEAL INSULIN AND BASAL INSULIN TWO SYRINGE PER DAY Past History Medical History Neurological: peripheral neuropathy EENT: diabetic retinopathy Cardiovascular: NONE Respiratory: NONE Gastrointestinal: NONE Hepatic: NONE Renal: nephrolithiasis Musculoskeletal: NONE Psychiatric: NONE Endocrine: diabetes, hypothyroidism Surgical History Pertinent Surgical History: non-contributory Psychosocial History Where Do You Live? Home Smoking Status: Never Smoked Functional Ability ADLs Independent: dressing, eating, toileting, bathing. Ambulation: independent IADLs Independent: shopping, housework, finances, food prep, telephone, transportation , medication admin. Review of Systems Review of Systems Constitutional: Denies: no symptoms. EENTM: Denies: no symptoms. Cardiovascular: Denies: chest pain. Respiratory: Denies: cough. Neurological/Psychological: Reports: numbness. Hematologic/Endocrine: Denies: bleeding. Exam & Diagnostic Data Vital Signs and I&O Vital Signs Date Time Temp Pulse Resp B/P B/P Pulse O2 O2 Flow FiO2 Mean Ox Delivery Rate 01/19 1456 98.9 80 20 104/70 95 Room Air 01/19 0628 98.1 77 20 110/74 93 01/18 2155 98.3 86 20 118/80 98 Room Air Intake & Output 01/19 1600 01/19 0800 01/19 0000 01/18 1600 01/18 0800 01/18 0000 Intake Total 800 2300 290 480 Output Total 750 475 350 Balance 800 1550 -185 130 Intake, IV 20 50 Intake, Oral 800 2280 240 480 Number 0 Bowel Movements Output, Urine 750 475 350 Physical Exam General Appearance: well developed/nourished, no apparent distress, alert, awake Head: normal appearance Eyes: Right: normal appearance. Ears, Nose, Throat: hearing grossly normal Neck: normal inspection Respiratory: normal breath sounds Cardiovascular: regular rate/rhythm Peripheral Pulses: 2+ femoral (R), 2+ femoral (L), 2+ popliteal (R), 2+ popliteal (L), 0 tibialis posterior (R), 1+ tibialis posterior (L), 0 dorsalis pedis (R), 0 dorsalis pedis (L) Gastrointestinal: soft, non-tender Extremities: Right foot with distal lateral 5th toe wound Neurologic/Psych: oriented x 3, motor/sensory deficits (neuropathy b/l LE) Assessment/Plan Assessment/Plan 1. Right foot wound from diabetes, neuropathy. Status post debridement. To return to OR by podiatry in the next few days. 2. Right LE with weak right foot pulses. Right LE arterial duplex shows tibial disease. I suspect he may need right leg angiogram and possible intervention to optimize healing? Will discuss with podiatry. Problem List: 1. Cellulitis of foot, right 2. Osteomyelitis of right foot 3. Atherosclerosis of arteries Consult Acknowledgment - Thank you for your consult request.
--- NOTE | 2017-01-19 19:26 | Patient Discharge Instructions ---
Discharge Instructions General Discharge Information Special Instructions: Schedule an appointment to establish care with [facility] after discharge. Continue your antibiotics therapy daily as directed for four total weeks (until 02/17/17). Follow up with Dr. Proctor after discharge. Start taking Atorvastatin and Metformin as directed. Stop taking Farxiga. Follow up with Dr. David as an outpatient for further control of your diabetes. Your insulin regimen has changed - start taking Levemir 20 units twice a day and your short acting insulin as directed. Acute Coronary Syndrome Inclusion Criteria At DC or during hospital stay patient has or had the following: ACS DIAGNOSIS No Discharge Core Measures Meds if any: Prescribed or Continued at Discharge Meds if any: NOT Prescribed or Continued at Discharge Congestive Heart Failure Inclusion Criteria At DC or during hospital stay patient has or had the following: CHF DIAGNOSIS No Discharge Core Measures Meds if any: Prescribed or Continued at Discharge Meds if any: NOT Prescribed or Continued at Discharge Cerebrovascular accident Inclusion Criteria At DC or during hospital stay patient has or had the following: CVA/TIA Diagnosis No Discharge Core Measures Meds if any: Prescribed or Continued at Discharge Meds if any: NOT Prescribed or Continued at Discharge Venous thromboembolism Inclusion Criteria VTE Diagnosis No VTE Type NONE VTE Confirmed by (Test) NONE Discharge Core Measures - Per Current guidelines, there needs to be overlap - treatment for the first 5 days of Warfarin therapy. - If discharged on Warfarin prior to 5 days of - overlap therapy, the patient will need to be - assessed for post discharge needs including - *Post discharge parental anticoagulation - *Warfarin and/or parental anticoagulation education - *Follow up date to check INR post discharge At least 5 days overlap therapy as Inpatient No Meds if any: Prescribed or Continued at Discharge Note: Overlap Therapy is Warfarin and Anticoagulant Meds if any: NOT Prescribed or Continued at Discharge
[2017-01-19 21:54] VITALS: BP 133/79
[2017-01-20 06:25] VITALS: BP 132/82
--- NOTE | 2017-01-20 07:12 | PN- Housestaff ---
See Addendum Subjective Follow-up For: Right foot pain Osteomyelitis Subjective: Patient seen and examined. He is seen lying flat in bed resting comfortably. He appears to be in no acute distress. He reports sleeping well last night, and admits to persistent bilateral lower extremity pain that he attributes to his ' neuropathy'. Otherwise he denies any new subjective complaints. Otherwise he denies any fever, chills, chest pain, shortness of breath, nausea, vomiting, diarrhea. No overnight events reported. Review of Systems Constitutional: Reports: see HPI. Objective Last 24 Hrs of Vital Signs/I&O Vital Signs Date Time Temp Pulse Resp B/P B/P Pulse O2 O2 Flow FiO2 Mean Ox Delivery Rate 01/20 0625 98.4 85 22 132/82 94 Room Air 01/19 2154 97.8 84 20 133/79 94 Room Air 01/19 1456 98.9 80 20 104/70 95 Room Air Intake & Output 01/20 1600 01/20 0800 01/20 0000 Intake Total 600 1170 Output Total 500 700 Balance 100 470 Intake, IV 600 250 Intake, Oral 920 Number 0 Bowel Movements Output, Urine 500 700 Physical Exam General Appearance: Alert, Oriented X3, Cooperative, No Acute Distress Other Physical Findings: General -well-developed, well-nourished middle-aged man in no acute distress HEENT - NCAT, PERRL, EOMI, anicteric sclera Cardio - S1, S2 w/o murmurs/gallops/rubs Resp - CTA bilaterally w/o wheezing/rhochi/crackles GI - soft, obese, nontender, nondistended, bowel sounds present Neuro - Awake and alert, CN II - XII grossly intact Extremities - right foot wrapped in sterile surgical dressing and halima banadge without any obvious drainage, normal pulses, no cyanosis/clubbing/edema Current Medications: Current Medications Sig/Quincy Start time Last Medication Dose Route Stop Time Status Admin Acetaminophen 650 MG Q6P PRN 01/14 2345 AC PO Codeine 15 MG .STK-MED ONE 01/20 0205 DC PO 01/20 0206 Dextrose/Sodium 1,000 ML Q13H 01/20 0000 AC 01/20 Chloride IV 0152 Docusate Sodium 100 MG DAILY 01/16 1000 AC 01/19 PO 0754 Ibuprofen 600 MG Q6P PRN 01/14 2345 DC 01/19 PO 0755 Insulin Aspart 0 TIDAC/HS 01/18 1700 DC 01/19 SC 01/20 0000 2111 Insulin Detemir 10 UNITS QPM 01/19 2200 DC 01/19 AL 01/19 Insulin Detemir 20 UNITS BID 01/18 2200 [place] 01/19 SC 0909 Insulin Human Regular 8 UNITS .STK-MED ONE 01/20 0146 DC IV 01/20 0147 Insulin Human Regular 0 Q6 01/19 2359 AC 01/20 SC 0612 Levothyroxine Sodium 0.1 MG DAILY AC 01/15 0700 AC 01/20 PO 0612 Oxycodone/ 2 TAB Q6P PRN 01/16 1000 AC 01/20 Acetaminophen PO 0613 Patient Medication 1 ED .STK-MED ONE 01/19 1342 DC Teaching ED 01/19 1343 Polyethylene Glycol 17 GM DAILY 01/16 1000 AC 01/17 PO 0859 Pregabalin 150 MG BID 01/148 AC 01/19 PO 211 Senna/Docusate Sodium 2 TAB DAILY 01/16 1000 AC 01/19 PO 0754 Vancomycin HCl 1,500 MG Q12 01/18 2200 AC 01/19 Sodium Chloride 250 ML IV 2111 Last 24 Hrs of Lab/Pelon Results Last 24 Hrs of Labs/Mics: Laboratory Tests 01/19/17 1437: PT 13.5 H, INR 1.29 H, CBC w Diff NO MAN DIFF REQ, RBC 3.84 L, MCV 88.9, MCH 30.0, RDW 13.9, MPV 9.4, Gran % 70.2, Lymphocytes % 19.8 L, Monocytes % 5.2, Eosinophils % 4.4, Basophils % 0.4, Absolute Granulocytes 5.1, Absolute Lymphocytes 1.4, Absolute Monocytes 0.4, Absolute Eosinophils 0.3, Absolute Basophils 0, PUBS MCHC 33.8 Assessment/Plan Assessment: 46-year-old man with multiple medical problems significant for poorly controlled insulin-dependent diabetes mellitus, diabetic peripheral neuropathy, and recent hospitalization for puncture wound cellulitis treated with antibiotics in for evaluation of recurrent right lower extremity pain with associated fever, chills and weakness and a new area of erythematous induration. Hosptal Day 6 Patient continues to do well and remains afebrile without leukocytosis while on intravenous Vancomycin. Patient was evaluated by vascular surgery last evening whom recommended a right leg angiogram with possible intervention; this will be discussed with podiatry. Patient was taken down to the OR early for debridement of his right foot osteomyelitis. PICC line placement will be deferred until tomorrow as it was scheduled for 11:30 and patient will not be able to consent the same day he received anesthesia. Patient is to have the PICC placed at 8:30 tomorrow morning and to have a right lower extremity angiogram with possible stent placement at 1:30. He is to be kept NPO overnight in anticipation for this. Right Foot Osteomyelitis / MRSA Patient was admitted to [facility] from 12/16/16 - 12/18/16 after stepping on a "shelli nail" that punctured his rubber shoe. He was treated with intravenous Ceftazidime and discharged to home on oral ciprofloxacin to complete a 10 day total antibiotic course. XR/MRI foot during this admission did not demonstrate osteomyelitis. He had clinical improvement with antibiotics. Patient reports pain and redness in his same extremity for four days prior to admission with assocaited fever, chills and weaknesss. Patient was febrile to 101.6 and received one dose of Unasyn. WBC 10.8, ESR 120. XR did not demonstrate any osteomyeltis. Patient was admitted to the general medicine floor for further evaluation. MRI of right demonstrated findings suggestive of osteomyeltis. Patient was continued on antibiotics, made NPO, and taken in for surgical debridement. Patient was continued on intravenous Ceftazidime/Clindamycin until OR culture demonstrated growth of MRSA for which he was started on Vancomycin. Patient was taken back down to the OR on 01/20/17 for revision of the right foot and tolerated the procedure well. -General Medicine -Contact Isolation for MRSA -Vancomycin 1.5g IV Q12 started -Podiatry Consult -Infectious Disease Consult -Follow up cultures & sensitivities Poorly Controlled Insulin-dependent Diabetes Mellitus Patient was discharged to home with diabetic supplies and instruction to establish care with a PCP with a referral made to [facility] on recent hospital discharge. Patient was lost to follow up but reports medication compliance. -Accucheck TIDAC/HS -Hold oral hypoglycemics -Novolog SSI -Levemir 20 units SC twice a day -Endocrinology consult Peripheral neuropathy-Lyrica 150 mg by mouth twice a day Hypothyroidism-Synthroid 10 g by mouth daily Pain Plan-Acetaminophen/Percocet/morphine Diet-nothing by mouth for surgery, restart diabetic diet after DVT prophylaxis-subcutaneous heparin CODE STATUS-full code Problem List: 1. Osteomyelitis of right foot Pain Ratin Pain Location: Right foot Pain Goal: Pain 7 or less Pain Plan: See assessment Tomorrow's Labs & Rationales: CBC - post op
--- NOTE | 2017-01-20 07:49 | PN- Diabetes ---
Assessment/Plan Assessment: The patient is presently nothing by mouth or procedure in the OR today. He received 10 units Levemir last night. He is on regular insulin every 6 hours. There is D5 half-normal saline running. His blood sugar this morning is 216. Plan: Suggest opinion U the present insulin regimen while nothing by mouth. When the patient returns from the OR and is eating we should place him back on his previous insulin regimen including Levemir 20 units twice a day and the sliding- scale NovoLog. Subjective Subjective: Feels okay Review of Systems Constitutional: Denies: chills, fever. Cardiovascular: Denies: chest pain. Respiratory: Denies: short of breath. Gastrointestinal: Denies: abdominal pain, nausea, vomiting. Objective Last 24 Hrs of Vital Signs/I&O Vital Signs Date Time Temp Pulse Resp B/P B/P Pulse O2 O2 Flow FiO2 Mean Ox Delivery Rate 01/20 625 98.4 85 22 132/82 94 Room Air 01/19 2154 97.8 84 20 133/79 94 Room Air 01/19 1456 98.9 80 20 104/70 95 Room Air Intake & Output 01/20 1600 01/20 0801/20 0000 Intake Total 1170 Output Total 500 700 Balance -500 470 Intake, IV 250 Intake, Oral 920 Number 0 Bowel Movements Output, Urine 500 700 Vital Signs Date Time Temp Pulse Resp B/P B/P Pulse O2 O2 Flow FiO2 Mean Ox Delivery Rate 01/20 0625 98.4 85 22 132/82 94 Room Air 01/19 2154 97.8 84 20 133/79 94 Room Air 01/19 1456 98.9 80 20 104/70 95 Room Air Intake & Output 01/20 1600 01/20 0801/20 0000 Intake Total 1170 Output Total 500 700 Balance -500 470 Intake, IV 250 Intake, Oral 920 Number 0 Bowel Movements Output, Urine 500 700 Physical Exam General Appearance: alert, awake, comfortable Head: normal appearance Respiratory: no respiratory distress Cardiovascular: regular rate/rhythm Abdomen: normal bowel sounds, non-tender Extremities: left foot bandaged Current Medications: Current Medications Sig/Quincy Start time Last Medication Dose Route Stop Time Status Admin Acetaminophen 650 MG Q6P PRN 01/14 2345 AC PO Dextrose/Sodium 1,000 ML Q13H 01/20 0000 AC 01/20 Chloride IV 0152 Docusate Sodium 100 MG DAILY 01/16 1000 AC 01/19 PO 0754 Ibuprofen 600 MG Q6P PRN 01/14 2345 DC 01/19 PO 0755 Insulin Aspart 0 TIDAC/HS 01/18 1700 DC 01/19 SC 01/20 0000 2111 Insulin Detemir 10 UNITS QPM 01/19 2200 DC 01/19 SC 01/19 Insulin Detemir 20 UNITS BID 01/18 2200 DC 01/19 SC 0909 Insulin Human Regular 0 Q6 01/19 2359 AC 01/20 SC 0612 Levothyroxine Sodium 0.1 MG DAILY AC 01/15 0700 AC 01/20 PO 0612 Oxycodone/ 2 TAB Q6P PRN 01/16 1000 AC 01/20 Acetaminophen PO 0613 Patient Medication 1 ED .STK-MED ONE 01/19 1342 SC Teaching ED 01/19 1343 Polyethylene Glycol 17 GM DAILY 01/16 1000 AC 01/17 PO 0859 Pregabalin 150 MG BID 01/14 2358 AC 01/19 PO 211 Senna/Docusate Sodium 2 TAB DAILY 01/16 1000 AC 01/19 PO 0754 Vancomycin HCl 1,500 MG Q12 01/18 2200 AC 01/19 Sodium Chloride 250 ML IV 2111 Findings Pertinent Lab/Pelon Results: Laboratory Tests 01/19 1437 Coagulation PT (9.4 - 12.5 SEC) 13.5 H INR (0.90 - 1.17) 1.29 H Hematology CBC w Diff NO MAN DIFF REQ WBC (4.8 - 10.8 /CUMM) 7.3 RBC (4.70 - 6.10 /CUMM) 3.84 L Hgb (14.0 - 18.0 G/DL) 11.5 L Hct (42 - 52 %) 34.2 L MCV (80.0 - 94.0 FL) 88.9 MCH (27.0 - 31.0 PG) 30.0 RDW (11.5 - 14.5 %) 13.9 Plt Count (130 - 400 /CUMM) 187 MPV (7.4 - 10.4 FL) 9.4 Gran % (42.2 - 75.2 %) 70.2 Lymphocytes % (20.5 - 51.1 %) 19.8 L Monocytes % (1.7 - 9.3 %) 5.2 Eosinophils % (0 - 5 %) 4.4 Basophils % (0.0 - 2.0 %) 0.4 Absolute Granulocytes (1.4 - 6.5 /CUMM) 5.1 Absolute Lymphocytes (1.2 - 3.4 /CUMM) 1.4 Absolute Monocytes (0.10 - 0.60 /CUMM) 0.4 Absolute Eosinophils (0.0 - 0.7 /CUMM) 0.3 Absolute Basophils (0.0 - 0.2 /CUMM) 0 PUBS MCHC (33.0 - 37.0 G/DL) 33.8
--- NOTE | 2017-01-20 08:21 | ULTRASOUND REPORT ---
EXAMINATION: US DUPLEX LOWER EXTREMITY ARTERY/GRAFT LIMITED, BILATERAL CLINICAL INFORMATION: Right claudication. Right fifth toe amputation. Right nonhealing ulcers. COMPARISON: None TECHNIQUE: Real-time ultrasound and Doppler techniques (integrating B-mode 2-D vascular images, Doppler spectral analysis and color flow Doppler imaging) were utilized to interrogate the lower extremities. FINDINGS: Right lower extremity: Common femoral artery: 137 cm/sec; triphasic waveform Superficial femoral artery proximal: 108 cm/sec; triphasic waveform Superficial femoral artery mid portion: 116 cm/sec; triphasic waveform Superficial femoral artery distal: 102 cm/sec; triphasic waveform Profunda artery: 76 cm/sec; triphasic waveform Popliteal artery: 82 cm/sec; triphasic waveform Posterior tibial artery: 77 cm/sec; monophasic waveform Anterior tibial artery: 43 cm/sec; monophasic waveform Dorsalis pedis artery: 98 cm/sec; monophasic waveform Left lower extremity: Common femoral artery: 73 cm/sec; triphasic waveform Superficial femoral artery proximal: 95 cm/sec; triphasic waveform Superficial femoral artery mid portion: 93 cm/sec; triphasic waveform Superficial femoral artery distal: 86 cm/sec; triphasic waveform Profunda artery: 69 cm/sec; triphasic waveform Popliteal artery: 73 cm/sec; triphasic waveform Posterior tibial artery: 82 cm/sec; triphasic waveform Anterior tibial artery: Not visualized Dorsalis pedis artery: 98 cm/sec; triphasic waveform ADDITIONAL FINDINGS: None. IMPRESSION: Monophasic waveforms in the runoff vessels of the right lower extremity suggestive of peripheral arterial disease. Decreased velocity in the anterior tibial artery suggest hemodynamic significance. The left anterior tibial artery was unable to be seen and may be occluded. Greater sensitivity and specificity can be obtained with pre-and post exercise PVRs with IRINEO calculations. Also consider dedicated CTA for further anatomical detail.
--- NOTE | 2017-01-20 10:04 | Operative Report ---
Operative/Inv Procedure Report Surgery Date: 01/20/17 Name of Procedure: 1 open incision and drainage deep to the deep fascia with exposure of the extensor and flexor tendon and tendon sheath multiple sites right foot 2 revisional partial fifth ray resection right foot 3 intraoperative administration of negative pressure wound therapy 4 intraoperative administration of ankle block anesthesia 5 excisional debridement Pre-Operative Diagnosis: 1 open necrotic wound right foot 2 osteomyelitis right foot 3 diabetic peripheral neuropathy Post-Operative Diagnosis: The same Estimated Blood Loss: less than 50ml Surgeon/Web Manager: RUI BAKER DPM Anesthesia: moderate sedation, block Operative/Procedure Note Note: After obtaining informed consent the patient was brought to the operating room and placed on the operating table in the supine position. The patient was then securely fastened to the operating table utilizing safety belt. After administration of IV sedation, 10 mL of 0.5% Marcaine plain was infiltrated about the patient's right ankle. The right foot and ankle within scrubbed prepped and draped in usual aseptic manner. Attention was directed the right foot, where a large full-thickness necrotic was identified. A 15 blade was utilized sharply revised skin margins. The dissection was then carried down deep to the deep fascia with exposure of the extensor and flexor tendon and tendon sheath multiple sites, both proximally and distally. All necrotic nonviable infected tissue sharply evacuated from the wound bed. The dissection was then carried down to the periosteum overlying the stump of the fifth metatarsal which was incised reflected. Sagittal bone saw was utilized to perform a through and through osteotomy in the distal 1 cm of exposed bone was cut and passed from the operative field specimen was sent for pathologic inspection. The open wound was then irrigated with 3 L of normal sterile saline infusion 50,000 units of bacitracin. Following this the foot was redraped and the surgeon's top gloves were changed clean gloves. Any bleeding vessels identified were cauterized or ligated as encountered. Negative pressure wound therapy was then placed followed by Kerlix and an Brian wrap. The patient was noted to tolerate both procedure and anesthesia well and the patient was transported from the operating room to recovery with vital signs stable.
[2017-01-20 14:43] VITALS: BP 120/80
[2017-01-20 22:03] VITALS: BP 120/64
[2017-01-21 06:53] VITALS: BP 108/74
--- NOTE | 2017-01-21 07:18 | PN- Housestaff ---
WALDO GONZALEZ MD 01/21/17 0718: Subjective Follow-up For: Right foot pain Osteomyelitis Subjective: Patient seen and examined. He is seen lying flat in bed resting comfortably. He appears to be in no acute distress. He reports feeling well and has new complaints. He says that he has minimal pain that is well controlled after he procedure yesterday. Additionally he denies any headache, fever, chills, chest pain, palpitations, shortness of breath, nausea, vomiting, diarrhea. No overnight events reported. Review of Systems Constitutional: Reports: see HPI. Objective Last 24 Hrs of Vital Signs/I&O Vital Signs Date Time Temp Pulse Resp B/P B/P Pulse O2 O2 Flow FiO2 Mean Ox Delivery Rate 01/21 0653 98.1 85 20 108/74 94 Room Air 01/20 2203 98.4 97 18 120/64 98 Room Air 01/20 1443 99.1 80 22 120/80 94 Room Air Intake & Output 01/21 0800 01/21 0000 01/20 1600 Intake Total 1225 Output Total 890 Balance 335 Intake, IV 325 Intake, Oral 900 Number 0 Bowel Movements Output, Urine 890 Physical Exam General Appearance: Alert, Oriented X3, Cooperative, No Acute Distress Other Physical Findings: General -well-developed, well-nourished middle-aged man in no acute distress HEENT - NCAT, PERRL, EOMI, anicteric sclera Cardio - S1, S2 w/o murmurs/gallops/rubs Resp - CTA bilaterally w/o wheezing/rhochi/crackles GI - soft, obese, nontender, nondistended, bowel sounds present Neuro - Awake and alert, CN II - XII grossly intact Extremities - right foot wrapped in sterile surgical dressing and halima banadge with wound vac without any obvious drainage, normal pulses, no cyanosis/clubbing /edema Current Medications: Current Medications Sig/Quincy Start time Last Medication Dose Route Stop Time Status Admin Acetaminophen 650 MG Q6P PRN 01/14 2345 AC PO Dextrose/Sodium 1,000 ML Q13H 01/21 0000 AC 01/21 Chloride IV 01/21 1259 0046 Dextrose/Sodium 1,000 ML Q13H 01/20 0000 DC 01/20 Chloride IV 0152 Docusate Sodium 100 MG DAILY 01/16 1000 AC 01/20 PO 1213 Fentanyl Citrate 100 MCG .STK-MED ONE 01/20 1010 DC IM 01/20 1011 Heparin Sodium 0 .STK-MED ONE 01/21 0746 DC (Porcine) IV Hydromorphone HCl 2 MG .STK-MED ONE 01/20 1011 DC IM 01/20 1012 Insulin Aspart 0 TIDAC/HS 01/20 1700 DC 01/20 SC 01/21 0000 2118 Insulin Detemir 20 UNITS BID 01/20 2200 CAN SC Insulin Detemir 10 UNITS QPM 01/20 2200 DC 01/20 SC 01/20 2201 2212 Insulin Human Regular 0 Q6 01/20 2359 AC 01/21 SC 0623 Insulin Human Regular 0 Q6 01/19 2359 DC 01/20 SC 0612 Levothyroxine Sodium 0.1 MG DAILY AC 01/15 0700 AC 01/21 PO 0624 Lidocaine 0 .STK-MED ONE 01/21 0746 DC .ROUTE Midazolam HCl 2 MG .STK-MED ONE 01/20 1010 DC IM 01/20 1011 Oxycodone/ 2 TAB Q6P PRN 01/16 1000 AC 01/21 Acetaminophen PO 0411 Polyethylene Glycol 17 GM DAILY 01/16 1000 AC 01/17 PO 0859 Pregabalin 150 MG BID 01/14 2358 AC 01/20 PO 2212 Senna/Docusate Sodium 2 TAB DAILY 01/16 1000 AC 01/20 PO 1213 Vancomycin HCl 1,500 MG Q12 01/18 2200 AC 01/20 Sodium Chloride 250 ML IV 2211 Last 24 Hrs of Lab/Pelon Results Last 24 Hrs of Labs/Mics: Laboratory Tests 01/21/17 0624: CBC w Diff Pending, WBC Pending, RBC Pending, Hgb Pending, Hct Pending, MCV Pending, MCH Pending, RDW Pending, Plt Count Pending, MPV Pending, PUBS MCHC Pending Assessment/Plan Assessment: 46-year-old man with multiple medical problems significant for poorly controlled insulin-dependent diabetes mellitus, diabetic peripheral neuropathy, and recent hospitalization for puncture wound cellulitis treated with antibiotics in for evaluation of recurrent right lower extremity pain with associated fever, chills and weakness and a new area of erythematous induration. Hosptal Day 7 Patient tolerated his surgical vision of his right foot well yesterday and now has a wound vac in place. He is to have a PICC line placed this morning by interventional radiology at 8:30am and to undergo evaluation by vascular surgery with a right lower extremity angiogram at 1:30pm this afternoon. He remains afebrile without leukocytosis. He is to under evaluation by physical therapy after his procedures to determine his functional status and discharge disposition. Right Foot Osteomyelitis / MRSA Patient was admitted to [facility] from 12/16/16 - 12/18/16 after stepping on a "shelli nail" that punctured his rubber shoe. He was treated with intravenous Ceftazidime and discharged to home on oral ciprofloxacin to complete a 10 day total antibiotic course. XR/MRI foot during this admission did not demonstrate osteomyelitis. He had clinical improvement with antibiotics. Patient reports pain and redness in his same extremity for four days prior to admission with assocaited fever, chills and weaknesss. Patient was febrile to 101.6 and received one dose of Unasyn. WBC 10.8, ESR 120. XR did not demonstrate any osteomyeltis. Patient was admitted to the general medicine floor for further evaluation. MRI of right demonstrated findings suggestive of osteomyeltis. Patient was continued on antibiotics, made NPO, and taken in for surgical debridement. Patient was continued on intravenous Ceftazidime/Clindamycin until OR culture demonstrated growth of MRSA for which he was started on Vancomycin. Patient was taken back down to the OR on 01/20/17 for revision of the right foot and tolerated the procedure well and was placed with a wound vac. -General Medicine -Contact Isolation for MRSA -Vancomycin 1.5g IV Q12 started -Podiatry Consult -Infectious Disease Consult -Follow up cultures & sensitivities Poorly Controlled Insulin-dependent Diabetes Mellitus Patient was discharged to home with diabetic supplies and instruction to establish care with a PCP with a referral made to [facility] on recent hospital discharge. Patient was lost to follow up but reports medication compliance. -Accucheck TIDAC/HS -Hold oral hypoglycemics -Novolog SSI -Levemir 20 units SC twice a day -Endocrinology consult Peripheral neuropathy-Lyrica 150 mg by mouth twice a day Hypothyroidism-Synthroid 10 g by mouth daily Pain Plan-Acetaminophen/Percocet/morphine Diet-nothing by mouth for surgery, restart diabetic diet after DVT prophylaxis-subcutaneous heparin CODE STATUS-full code Problem List: 1. Osteomyelitis of right foot Pain Ratin Pain Location: Right foot Pain Goal: Pain 7 or less Pain Plan: See assessment Tomorrow's Labs & Rationales: CBC - post op BEP - renal function, recent contrast for angio CHAPO ARROYO MD 01/21/17 1155: Attending MD Review Statement Attending Statement Attending MD Statement: examined this patient, discuss w/resident/PA/PROGRAM MANAGEMENT MANAGER, agreed w/resident/PA/PROGRAM MANAGEMENT MANAGER, reviewed EMR data (avail), discussed with nursing, discussed with case mgmt, reviewed images Attending Assessment/Plan: Patient feels okay overall but is worried about the angiographic procedure and possible intervention later today. I explained at length that this is needed to promote vascularization to promote wound healing. He needs 4 weeks of IV Vanco for MRSA osteo-and the plan is a PICC line today and an angiogram later today in the OR with possible intervention depending on how obstructive his vascular disease is.
--- NOTE | 2017-01-21 07:58 | PN- Diabetes ---
Assessment/Plan Assessment: The patient is presently nothing by mouth for further procedures in the OR today. He received 10 units Levemir last night. He is on regular insulin every 6 hours. There is D5 half-normal saline running. The patient sugars got high yesterday when he was on this regimen. They were 301, for . This morning his sugar is 258. Plan: Suggest that while the patient is nothing by mouth change him to NovoLog every 4 hours. We will probably improve his diabetes control while he is nothing by mouth with this regimen. NovoLog sliding scale every 4 hours should be less than 150 no insulin, 151-200 give 4 units NovoLog, 201-250 give 6 units NovoLog, 251-300 give 8 units NovoLog , the 301-350 give 9 units NovoLog, a 351-400 give 10 units NovoLog. I agree with running D5 half-normal saline at 75 mL per hour while nothing by mouth. Subjective Subjective: Feels okay Review of Systems Constitutional: Denies: chills, fever. Cardiovascular: Denies: chest pain. Respiratory: Denies: short of breath. Objective Last 24 Hrs of Vital Signs/I&O Vital Signs Date Time Temp Pulse Resp B/P B/P Pulse O2 O2 Flow FiO2 Mean Ox Delivery Rate 01/21 0653 98.1 85 20 108/74 94 Room Air 01/20 2203 98.4 97 18 120/64 98 Room Air 01/20 1443 99.1 80 22 120/80 94 Room Air Vital Signs Date Time Temp Pulse Resp B/P B/P Pulse O2 O2 Flow FiO2 Mean Ox Delivery Rate 01/21 0653 98.1 85 20 108/74 94 Room Air 01/20 2203 98.4 97 18 120/64 98 Room Air 01/20 1443 99.1 80 22 120/80 94 Room Air Physical Exam General Appearance: alert, awake, comfortable Respiratory: normal breath sounds Cardiovascular: regular rate/rhythm Extremities: foot bandaged Current Medications: Current Medications Sig/[place] Start time Last Medication Dose Route Stop Time Status Admin Acetaminophen 650 MG Q6P PRN 01/14 2345 AC PO Dextrose/Sodium 1,000 ML Q13H 01/21 0000 AC 01/21 Chloride IV 01/21 1259 0046 Dextrose/Sodium 1,000 ML Q13H 01/20 0000 DC 01/20 Chloride IV 0152 Docusate Sodium 100 MG DAILY 01/16 1000 AC 01/20 PO 1213 Fentanyl Citrate 100 MCG .STK-MED ONE 01/20 1010 DC IM 01/20 1011 Heparin Sodium 0 .STK-MED ONE 01/21 0746 DC (Porcine) IV Hydromorphone HCl 2 MG .STK-MED ONE 01/20 1011 DC IM 01/20 1012 Insulin Aspart 0 TIDAC/HS 01/20 1700 DC 01/20 SC 01/21 0000 2118 Insulin Detemir 20 UNITS BID 01/20 2200 CAN SC Insulin Detemir 10 UNITS QPM 01/20 2200 DC 01/20 SC 01/20 2201 2212 Insulin Human Regular 0 Q6 01/20 2359 AC 01/21 SC 0623 Insulin Human Regular 0 Q6 01/19 2359 DC 01/20 SC 0612 Levothyroxine Sodium 0.1 MG DAILY AC 01/15 0700 AC 01/21 PO 0624 Lidocaine 0 .STK-MED ONE 01/21 0746 DC .ROUTE Midazolam HCl 2 MG .STK-MED ONE 01/20 1010 DC IM 01/20 1011 Oxycodone/ 2 TAB Q6P PRN 01/16 1000 AC 01/21 Acetaminophen PO 0411 Polyethylene Glycol 17 GM DAILY 01/16 1000 AC 01/17 PO 0859 Pregabalin 150 MG BID 01/14 2358 AC 01/20 PO 2212 Senna/Docusate Sodium 2 TAB DAILY 01/16 1000 AC 01/20 PO 1213 Vancomycin HCl 1,500 MG Q12 01/18 2200 AC 01/20 Sodium Chloride 250 ML IV 2211 Findings Pertinent Lab/Pelon Results: Laboratory Tests 01/22 624 Hematology CBC w Diff Pending WBC Pending RBC Pending Hgb Pending Hct Pending MCV Pending MCH Pending RDW Pending Plt Count Pending MPV Pending PUBS MCHC Pending
[2017-01-21 07:59] LABS: ABSOLUTE BASOPHIL COUNT 0.1 /CUMM (0.0-0.2); ABSOLUTE EOSINOPHIL COUNT 0.4 /CUMM (0.0-0.7); ABSOLUTE GRANULOCYTE CT 5.7 /CUMM (1.4-6.5); ABSOLUTE LYMPH COUNT 1.8 /CUMM (1.2-3.4); ABSOLUTE MONOCYTE COUNT 0.6 /CUMM (0.10-0.60); BASOPHIL % 0.7 % (0.0-2.0); EOSINOPHIL % 4.2 % (0-5); GRANULOCYTE % 66.6 % (42.2-75.2); HEMATOCRIT 33.8 % (42-52); MEAN CORPUSCULAR HGB 29.8 PG (27.0-31.0); MEAN CORPUSCULAR HGB CONC 33.3 G/DL (33.0-37.0); MEAN CORPUSCULAR VOLUME 89.4 FL (80.0-94.0); MEAN PLATELET VOLUME 9.6 FL (7.4-10.4); PLATELET COUNT 186 /CUMM (130-400); RBC DISTRIBUTION WIDTH 13.6 % (11.5-14.5); RED BLOOD CELL CT 3.78 /CUMM (4.70-6.10); WHITE BLOOD CELL COUNT 8.5 /CUMM (4.8-10.8)
--- NOTE | 2017-01-21 12:52 | PN- Infect Dx ---
Subjective Subjective: Afebrile without complaints. Objective Last 24 Hrs of Vital Signs/I&O Vital Signs Date Time Temp Pulse Resp B/P B/P Pulse O2 O2 Flow FiO2 Mean Ox Delivery Rate 01/21 0653 98.1 85 20 108/74 94 Room Air 01/20 2203 98.4 97 18 120/64 98 Room Air 01/20 1443 99.1 80 22 120/80 94 Room Air Intake & Output 01/21 1600 01/21 0800 01/21 0000 Intake Total Output Total 500 Balance -500 Output, Urine 500 Physical Exam Other Physical Findings: He appears comfortable in no acute distress Extremities right foot dressing intact, with wound VAC in place; PICC in place in the right upper extremity Results Last 24 Hours of Lab Results: Laboratory Tests 01/22 624 Hematology CBC w Diff NO MAN DIFF REQ WBC (4.8 - 10.8 /CUMM) 8.5 RBC (4.70 - 6.10 /CUMM) 3.78 L Hgb (14.0 - 18.0 G/DL) 11.3 L Hct (42 - 52 %) 33.8 L MCV (80.0 - 94.0 FL) 89.4 MCH (27.0 - 31.0 PG) 29.8 RDW (11.5 - 14.5 %) 13.6 Plt Count (130 - 400 /CUMM) 186 MPV (7.4 - 10.4 FL) 9.6 Gran % (42.2 - 75.2 %) 66.6 Lymphocytes % (20.5 - 51.1 %) 21.3 Monocytes % (1.7 - 9.3 %) 7.2 Eosinophils % (0 - 5 %) 4.2 Basophils % (0.0 - 2.0 %) 0.7 Absolute Granulocytes (1.4 - 6.5 /CUMM) 5.7 Absolute Lymphocytes (1.2 - 3.4 /CUMM) 1.8 Absolute Monocytes (0.10 - 0.60 /CUMM) 0.6 Absolute Eosinophils (0.0 - 0.7 /CUMM) 0.4 Absolute Basophils (0.0 - 0.2 /CUMM) 0.1 PUBS MCHC (33.0 - 37.0 G/DL) 33.3 Last 24 Hours of Pelon Results: No new cultures Recent Imaging Studies: Arterial Doppler of the right leg January 19 reveals monophasic waveforms in the runoff vessels of the right lower extremity suggestive of peripheral arterial disease; decreased velocity in the anterior tibial artery suggesting hemodynamic significance; possible left anterior tibial artery occlusion Assessment/Plan Impression: Stable status post revisional partial fifth ray resection of the right foot yesterday for 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 He will require a prolonged course ( i.e. 4 weeks) of IV antibiotics for residual osteomyelitis. Suggestion: 1. Would obtain a baseline postop ESR and x-ray of the right foot 2. Further workup of his vascular status per Vascular Surgery 3. Vancomycin trough level in the a.m. January 22 4. Continue Vancomycin for 4 weeks from his recent debridement (until February 17) 5. Weekly CBC, ESR, BUN/creatinine and Vancomycin trough level
--- NOTE | 2017-01-21 14:18 | ULTRASOUND REPORT ---
Examination: PICC line Clinical history: Long-term antibiotics required for osteomyelitis. PICC line requested. Interventional radiologist: Oren Ng M.D. Anesthesia: 1% local lidocaine. Fluoroscopic Time: 4.2 minutes Procedure in Detail: Informed consent was obtained from the patient prior to the procedure. During this process, the procedure and potential alternatives were explained along with the intended outcome and benefits. The risks of the procedure including the possibility of an unsuccessful procedure, as well as the risk of not doing the procedure were discussed. The patient was given the opportunity to ask questions regarding the procedure and appeared competent to make decisions. A signed consent form which documents this discussion was placed in the medical record. Following informed consent the patient was placed supine on the fluoroscopic table. The right upper extremity was prepped and draped in usual sterile fashion. A time out procedure was performed. Real-time ultrasound was performed to obtained venous mapping and vascular access assessment. Using standard interventional, sterile and Seldinger technique a micro-stick system was utilized to enter into the right upper extremity brachial vein. A wire was introduced. The wire was introduced down into the inferior vena cava to confirm the venous position. A 35 cm, single lumen power PICC was then placed. The tip of the catheter was placed at the cavoatrial junction. Fluoroscopic imaging confirmed the position of the catheter. The PICC line was secured into position. A sterile dressing was placed over the site. The patient tolerated the procedure well and was discharged from the department in good condition with instructions. Complications: None. ULTRASOUND-GUIDED VASCULAR ACCESS: Ultrasound was used to identify the right brachial vein. The right brachial vein was confirmed to be patent. Real time imaging confirmed needle access into the right brachial vein. An image was saved for permanent recording in PACS. IMPRESSION: Successful ultrasound and fluoroscopically guided right upper extremity PICC line placement
[2017-01-21 14:47] VITALS: BP 122/68
[2017-01-21 15:10] VITALS: BP 110/70
--- NOTE | 2017-01-21 17:57 | Operative Report ---
Operative/Inv Procedure Report Surgery Date: 01/21/17 Name of Procedure: Aortogram Ultrasound-guided access Right leg angiogram Second-order catheterization of right common femoral artery Pre-Operative Diagnosis: Atherosclerosis and ulcer Post-Operative Diagnosis: The same Estimated Blood Loss: scant Surgeon/Surveyor Instrument Assistant: TATIANA CHACON MD Anesthesia: local monitored anesthesi Operative Indication: Right foot wound, tibial disease on ultrasound Operative/Procedure Note Note: Both groins groin was prepped with Betadine. Ultrasound was used to assess the left common femoral artery and vein. The common femoral artery was normal in appearance. The vein was medial compressible, and its normal anatomic position. 1% lidocaine was used for local. 21-gauge needle, an 0.018 a wire, dilator and sheath were used to access the common femoral artery over the femoral head. A 0.035 J wire was placed, and a 5 [place] sheath was placed. A 5 [place] flushed catheter was placed. Aortogram showed patent aorto, bilateral common, internal, external iliac arteries with no significant stenoses. 035 Glidewire and catheters placed in the right common femoral artery. Hand injection showed patent right common femoral artery, pain or profundofemoral artery, patent right superficial femoral artery at the thigh. Additional injection shows a widely patent superficial femoral artery and popliteal artery with no disease. In the calf the tibial peroneal trunk is open. Anterior tibial arteries patent but rather small in caliber and patent down to the dorsalis pedis area. The peroneal artery is patent to the ankle. The posterior tibial arteries widely patent probably down to the foot. There is no disease that required treatment. Flow to the foot is excellent, via both posterior tibial and anterior tibial arteries. Sheath was removed and pressure was held for hemostasis.
[2017-01-21 19:45] VITALS: BP 118/70
[2017-01-21 22:30] VITALS: BP 124/78
[2017-01-22 06:26] VITALS: BP 102/68
--- NOTE | 2017-01-22 07:02 | PN- Housestaff ---
WALDO GONZALEZ MD 01/22/17 0702: Subjective Follow-up For: Right foot pain Osteomyelitis Subjective: Patient seen and examined. He is seen lying flat in bed resting comfortably. He appears to be in no acute distress. He reports that his right leg has "much better circulation" and denies any further numbness/tingling in the extremity. He states that he feels well and has no new subjective complaints. Additionally he denies any fever, chills, chest pain, shortness of breath, nausea, vomiting, diarrhea. No overnight events reported. Review of Systems Constitutional: Reports: see HPI. Objective Last 24 Hrs of Vital Signs/I&O Vital Signs Date Time Temp Pulse Resp B/P B/P Pulse O2 O2 Flow FiO2 Mean Ox Delivery Rate 01/22 1409 98.4 78 20 100/58 94 Room Air 01/22 0626 98.3 78 18 102/68 94 Room Air 01/21 2230 98.4 91 20 124/78 96 Room Air 01/21 1945 97.6 78 18 118/70 97 Room Air 01/21 1510 98.4 75 20 110/70 96 Room Air Intake & Output 01/22 1600 01/22 0800 01/22 0000 Intake Total 1050 1380 675 Output Total 3740 164 2972 Balance -200 870 -925 Intake, IV 250 900 75 Intake, Oral 800 480 600 Output, 10 Drainage Output, Urine 3087 940 1588 Physical Exam General Appearance: Alert, Oriented X3, Cooperative, No Acute Distress Other Physical Findings: General -well-developed, well-nourished middle-aged man in no acute distress HEENT - NCAT, PERRL, EOMI, anicteric sclera Cardio - S1, S2 w/o murmurs/gallops/rubs Resp - CTA bilaterally w/o wheezing/rhochi/crackles GI - soft, obese, nontender, nondistended, bowel sounds present Neuro - Awake and alert, CN II - XII grossly intact Extremities - right foot wrapped in sterile surgical dressing and halima banadge with wound vac without any obvious drainage, normal pulses, no cyanosis/clubbing /edema Current Medications: Current Medications Sig/Quincy Start time Last Medication Dose Route Stop Time Status Admin Acetaminophen 650 MG Q6P PRN 01/21 1800 AC PO Acetaminophen 650 MG Q6P PRN 01/14 2345 DC PO Docusate Sodium 100 MG DAILY 01/22 1000 AC 01/22 PO 0928 Docusate Sodium 100 MG DAILY 01/16 1000 DC 01/20 PO 1213 Fentanyl Citrate 200 MCG .STK-MED ONE 01/21 1517 DC IM 01/21 1518 Hydromorphone HCl 2 MG .STK-MED ONE 01/21 1809 DC IM 01/21 1810 Insulin Aspart 0 TIDAC/HS 01/21 2100 AC 01/22 SC 1212 Insulin Aspart 0 Q4 01/21 1800 DC SC Insulin Aspart 0 Q4 01/21 1000 DC 01/21 SC 1431 Insulin Detemir 20 UNITS BID 01/22 1000 AC 01/22 SC 0941 Insulin Detemir 10 UNITS QPM 01/21 2200 DC 01/21 SC 01/21 220 2248 Levothyroxine Sodium 0.1 MG DAILY AC 01/22 0700 AC 01/22 PO 0549 Levothyroxine Sodium 0.1 MG DAILY AC 01/15 0700 DC 01/21 PO 0624 Midazolam HCl 4 MG .STK-MED ONE 01/21 1518 DC IM 01/21 1519 Oxycodone/ 2 TAB Q6P PRN 01/21 1800 AC 01/22 Acetaminophen PO 1329 Oxycodone/ 2 TAB Q6P PRN 01/16 1000 DC 01/21 Acetaminophen PO 1120 Polyethylene Glycol 17 GM DAILY 01/22 1000 AC PO Polyethylene Glycol 17 GM DAILY 01/16 1000 DC 01/17 PO 0859 Pregabalin 150 MG BID 01/21 2200 AC 01/22 PO 0942 Pregabalin 150 MG BID 01/14 2358 DC 01/21 PO 1026 Senna/Docusate Sodium 2 TAB DAILY 01/22 1000 AC PO Senna/Docusate Sodium 2 TAB DAILY 01/16 1000 DC 01/20 PO 1213 Sodium Chloride 1,000 ML Q13H 01/21 1815 DC 01/21 IV 01/22 0714 2146 Vancomycin HCl 1,500 MG Q12 01/210 AC 01/22 Sodium Chloride 250 ML IV 0930 Vancomycin HCl 1,500 MG Q12 01/18 220 DC 01/21 Sodium Chloride 250 ML IV 1028 Last 24 Hrs of Lab/Pelon Results Last 24 Hrs of Labs/Mics: Laboratory Tests 01/22/17 0849: Vancomycin Trough 8.5 L 01/22/17 0613: Anion Gap 10, Estimated GFR > 60, BUN/Creatinine Ratio 21.7, CBC w Diff NO MAN DIFF REQ, RBC 3.56 L, MCV 89.2, MCH 30.2, RDW 13.9, MPV 9.9, Gran % 63.1, Lymphocytes % 24.9, Monocytes % 5.9, Eosinophils % 5.5 H, Basophils % 0.6, Absolute Granulocytes 4.6, Absolute Lymphocytes 1.8, Absolute Monocytes 0.4, Absolute Eosinophils 0.4, Absolute Basophils 0, PUBS MCHC 33.9, ESR Westergren 100 H 01/21/17 2100: Vancomycin Trough Cancelled Assessment/Plan Assessment: 46-year-old man with multiple medical problems significant for poorly controlled insulin-dependent diabetes mellitus, diabetic peripheral neuropathy, and recent hospitalization for puncture wound cellulitis treated with antibiotics in for evaluation of recurrent right lower extremity pain with associated fever, chills and weakness and a new area of erythematous induration. Hosptal Day 8 Patient continues to do well today and is set to be discharged to home. His creatinine remains normal today despite having intravenous contrast during the angiogram yesterday. Vancomycin trough remains low despite receiving 3 grams daily. Patient is to be discharged to home with a rolling walker and prescriptions for atorvastatin, metformin with instruction to increase his levemir to 20 units twice a daily and to utilize a new insulin sliding scale regimen. He is to stop taking Farxiga. He is to follow up with Dr. Proctor, Dr. David, Dr. Kaplan, and to establish care with a primary care provider after discharge with [facility]. Right Foot Osteomyelitis / MRSA Patient was admitted to [facility] from 12/16/16 - 12/18/16 after stepping on a "shelli nail" that punctured his rubber shoe. He was treated with intravenous Ceftazidime and discharged to home on oral ciprofloxacin to complete a 10 day total antibiotic course. XR/MRI foot during this admission did not demonstrate osteomyelitis. He had clinical improvement with antibiotics. Patient reports pain and redness in his same extremity for four days prior to admission with assocaited fever, chills and weaknesss. Patient was febrile to 101.6 and received one dose of Unasyn. WBC 10.8, ESR 120. XR did not demonstrate any osteomyeltis. Patient was admitted to the general medicine floor for further evaluation. MRI of right demonstrated findings suggestive of osteomyeltis. Patient was continued on antibiotics, made NPO, and taken in for surgical debridement. Patient was continued on intravenous Ceftazidime/Clindamycin until OR culture demonstrated growth of MRSA for which he was started on Vancomycin. Patient was taken back down to the OR on 01/20/17 for revision of the right foot and tolerated the procedure well and was placed with a wound vac. -General Medicine -Contact Isolation for MRSA -Vancomycin 1.5g IV Q12 started -Podiatry Consult -Infectious Disease Consult -Follow up cultures & sensitivities Poorly Controlled Insulin-dependent Diabetes Mellitus Patient was discharged to home with diabetic supplies and instruction to establish care with a PCP with a referral made to [facility] on recent hospital discharge. Patient was lost to follow up but reports medication compliance. -Accucheck TIDAC/HS -Hold oral hypoglycemics -Novolog SSI -Levemir 20 units SC twice a day -Endocrinology consult Peripheral neuropathy-Lyrica 150 mg by mouth twice a day Hypothyroidism-Synthroid 10 g by mouth daily Pain Plan-Acetaminophen/Percocet/morphine Diet-nothing by mouth for surgery, restart diabetic diet after DVT prophylaxis-subcutaneous heparin CODE STATUS-full code Problem List: 1. Osteomyelitis of right foot Pain Ratin Pain Location: Right foot Pain Goal: Pain 7 or less Pain Plan: See assessment Tomorrow's Labs & Rationales: None DINA COLLAZO,CHAPO 01/22/17 1539: Attending MD Review Statement Attending Statement Attending MD Statement: examined this patient, discuss w/resident/PA/TANK PUMPER PANELBOARD, agreed w/resident/PA/TANK PUMPER PANELBOARD, reviewed EMR data (avail), discussed with nursing, discussed with case mgmt, reviewed images Attending Assessment/Plan: Angio results noted and patient's arteries were widely patent. He didn't have any kind of vascular procedure done. He stable to go home today. The technology intern did confirm the Levemir and NovoLog coverage with by mouth metformin per Rehan David MD on discharge. The plan is for weeks of IV Vanco. The trough is slightly on the low side but I'm uncomfortable increasing the dose given that he is already at 1.5 g every 12. At this point I asked for a repeat trough on Thursday and the results will be faxed to Dr. Proctor and I will speak to Dr. Proctor at that point about whether we need to increase the dose of the Vanco. He will go home with a PICC line with home infusion and visiting nurse service. We've already indicated in the W 10 and discharge paperwork that he needs weekly blood draws as recommended by ID. He'll also leave on his statin for his underlying diabetes and ASCVD score and follow closely.
--- NOTE | 2017-01-22 07:58 | PN- Diabetes ---
Assessment/Plan Assessment: The patient had surgery yesterday. Today he is back on his usual insulin regimen. His blood sugar was high this morning at 301. Plan: Suggest resume the patient's premeal insulin with NovoLog and his Levemir 20 units twice a day. Await today's labs as the patient had contrast in the OR yesterday with his vascular procedure. Subjective Subjective: Feels improved Review of Systems Constitutional: Denies: chills, fever. Cardiovascular: Denies: chest pain. Respiratory: Denies: short of breath. Gastrointestinal: Denies: nausea, vomiting. Genitourinary: Denies: dysuria. Skin: Reports: no symptoms. Objective Last 24 Hrs of Vital Signs/I&O Vital Signs Date Time Temp Pulse Resp B/P B/P Pulse O2 O2 Flow FiO2 Mean Ox Delivery Rate 01/22 626 98.3 78 18 102/68 94 Room Air 01/21 2230 98.4 91 20 124/78 96 Room Air 01/21 194 97.6 78 18 118/70 97 Room Air 01/21 1510 98.4 75 20 110/70 96 Room Air 01/21 1447 98.1 80 122/68 97 Intake & Output 01/22 1600 01/22 0800 01/22 0000 Intake Total 1380 675 Output Total 510 1600 Balance 870 -925 Intake, IV 900 75 Intake, Oral 480 600 Output, 10 Drainage Output, Urine 500 1600 Vital Signs Date Time Temp Pulse Resp B/P B/P Pulse O2 O2 Flow FiO2 Mean Ox Delivery Rate 01/22 626 98.3 78 18 102/68 94 Room Air 01/21 2230 98.4 91 20 124/78 96 Room Air 01/21 1945 97.6 78 18 118/70 97 Room Air 01/21 1510 98.4 75 20 110/70 96 Room Air 01/21 1447 98.1 80 122/68 97 Intake & Output 01/22 1600 01/22 0800 01/22 0000 Intake Total 1380 675 Output Total 510 1600 Balance 870 -925 Intake, IV 900 75 Intake, Oral 480 600 Output, 10 Drainage Output, Urine 500 1600 Physical Exam General Appearance: alert, awake, comfortable Respiratory: no respiratory distress Cardiovascular: regular rate/rhythm Abdomen: normal bowel sounds Current Medications: Current Medications Sig/Qu[place] Start time Last Medication Dose Route Stop Time Status Admin Acetaminophen 650 MG Q6P PRN 01/21 1800 AC PO Acetaminophen 650 MG Q6P PRN 01/14 2345 DC PO Dextrose/Sodium 1,000 ML Q13H 01/21 0000 DC 01/21 Chloride IV 01/21 1259 0046 Docusate Sodium 100 MG DAILY 01/22 1000 AC PO Docusate Sodium 100 MG DAILY 01/16 1000 DC 01/20 PO 1213 Fentanyl Citrate 200 MCG .STK-MED ONE 01/21 1517 DC IM 01/21 1518 Fentanyl Citrate 200 MCG .STK-MED ONE 01/21 1318 DC IM 01/21 1319 Hydromorphone HCl 2 MG .STK-MED ONE 01/21 1809 DC IM 01/21 1810 Insulin Aspart 0 TIDAC/HS 01/21 2100 AC 01/21 SC 2249 Insulin Aspart 0 Q4 01/21 1800 DC SC Insulin Aspart 0 Q4 01/21 1000 DC 01/21 SC 1431 Insulin Detemir 20 UNITS BID 01/22 1000 AC SC Insulin Detemir 10 UNITS QPM 01/21 2200 DC 01/21 SC 01/21 2201 2248 Insulin Human Regular 0 Q6 01/20 2359 DC 01/21 SC 0623 Levothyroxine Sodium 0.1 MG DAILY AC 01/22 0700 AC 01/22 PO 0549 Levothyroxine Sodium 0.1 MG DAILY AC 01/15 0700 DC 01/21 PO 0624 Midazolam HCl 4 MG .STK-MED ONE 01/21 1518 DC IM 01/21 1519 Midazolam HCl 4 MG .STK-MED ONE 01/21 1318 DC IM 01/21 1319 Oxycodone/ 2 TAB Q6P PRN 01/21 1800 AC 01/22 Acetaminophen PO 0735 Oxycodone/ 2 TAB Q6P PRN 01/16 1000 DC 01/21 Acetaminophen PO 1120 Patient Medication 1 ED .STK-MED ONE 01/21 1410 DC Teaching ED 01/21 1411 Polyethylene Glycol 17 GM DAILY 01/22 1000 AC PO Polyethylene Glycol 17 GM DAILY 01/16 1000 DC 01/17 PO 0859 Pregabalin 150 MG BID 01/21 2200 AC 01/21 PO 2249 Pregabalin 150 MG BID 01/14 2358 DC 01/21 PO 1026 Senna/Docusate Sodium 2 TAB DAILY 01/22 1000 AC PO Senna/Docusate Sodium 2 TAB DAILY 01/16 1000 DC 01/20 PO 1213 Sodium Chloride 1,000 ML Q13H 01/21 1815 DC 01/21 IV 01/22 0714 2146 Vancomycin HCl 1,500 MG Q12 01/21 2200 AC 01/21 Sodium Chloride 250 ML IV 2146 Vancomycin HCl 1,500 MG Q12 01/18 220 DC 01/21 Sodium Chloride 250 ML IV 1028 Findings Pertinent Lab/Pelon Results: Laboratory Tests 01/22 01/21 0613 2100 Chemistry Sodium Pending Potassium Pending Chloride Pending Carbon Dioxide Pending Anion Gap Pending BUN Pending Creatinine Pending BUN/Creatinine Ratio Pending Hematology CBC w Diff Pending WBC Pending RBC Pending Hgb Pending Hct Pending MCV Pending MCH Pending RDW Pending Plt Count Pending MPV Pending PUBS MCHC Pending ESR Westergren Pending Toxicology Vancomycin Trough Cancelled
[2017-01-22 08:35] LABS: ABSOLUTE BASOPHIL COUNT 0 /CUMM (0.0-0.2); ABSOLUTE EOSINOPHIL COUNT 0.4 /CUMM (0.0-0.7); ABSOLUTE GRANULOCYTE CT 4.6 /CUMM (1.4-6.5); ABSOLUTE LYMPH COUNT 1.8 /CUMM (1.2-3.4); ABSOLUTE MONOCYTE COUNT 0.4 /CUMM (0.10-0.60); BASOPHIL % 0.6 % (0.0-2.0); EOSINOPHIL % 5.5 % (0-5); GRANULOCYTE % 63.1 % (42.2-75.2); HEMATOCRIT 31.8 % (42-52); MEAN CORPUSCULAR HGB 30.2 PG (27.0-31.0); MEAN CORPUSCULAR HGB CONC 33.9 G/DL (33.0-37.0); MEAN CORPUSCULAR VOLUME 89.2 FL (80.0-94.0); MEAN PLATELET VOLUME 9.9 FL (7.4-10.4); PLATELET COUNT 198 /CUMM (130-400); RBC DISTRIBUTION WIDTH 13.9 % (11.5-14.5); RED BLOOD CELL CT 3.56 /CUMM (4.70-6.10); WHITE BLOOD CELL COUNT 7.4 /CUMM (4.8-10.8)
--- NOTE | 2017-01-22 11:41 | RADIOLOGY REPORT ---
EXAMINATION: XR INTRAOPERATIVE FLUOROSCOPY AND SPOT FILMS OF THE LEFT LEG CLINICAL INFORMATION: Left arteriogram. COMPARISON: None TECHNIQUE/FINDINGS: Fluoroscopic equipment was dedicated to the operating room for the performance of a left lower extremity arteriogram. Multiple (14) fluoroscopic runs were performed and are archived in PACS. FLUOROSCOPY TIME: 334.5 seconds. IMPRESSION: Administrative dictation for intraoperative fluoroscopy provided during the performance of a left lower extremity arteriogram.
--- NOTE | 2017-01-22 11:46 | RADIOLOGY REPORT ---
EXAMINATION: XR FOOT, RIGHT CLINICAL INFORMATION: Right foot pain. Status post osteomyelitis debridement and wound VAC placement. COMPARISON: Right foot films dated 01/14/2017. TECHNIQUE: AP, lateral, and oblique views of the right foot. FINDINGS: The patient is status post trans mid metatarsal amputation of the fifth ray. Osteotomy site appears unremarkable. Remainder of the bony structures are remarkable only for mild osteoarthritic changes at the interphalangeal joints of all digits and at the first tarsal metatarsal joint and in the intertarsal joints. There is a small plantar calcaneal spur and a posterior calcaneal spur. Prominent arterial vascular calcifications are seen in the soft tissues. Osteopenia is seen. IMPRESSION: Status post transmetatarsal amputation of the fifth ray.
[2017-01-22] MEDS ORDERED: VANCO 1.51.5 GM/250 IV ×2 (13:25→13:29)
[2017-01-22] MEDS ORDERED: ATORVASTATIN CA20 M1 PO (13:32)
[2017-01-22] MEDS ORDERED: LEVEMIR100 UNIT/1 SC (14:00)
[2017-01-22] MEDS ORDERED: HUMALOG KW100 UNIT/1 SC (14:00)
[2017-01-22 14:09] VITALS: BP 100/58
[2017-01-22] MEDS ORDERED: METFORMIN HCL500 M3 PO (14:10)
--- NOTE | 2017-01-22 14:23 | Cons- Wound Care ---
General Information and HPI Consulting Request Date of Consult: 01/22/17 Requested By: DINA COLLAZO,CHAPO Tucker Reason for Consult: Diabetic right foot ulcer present on admission for evaluation of hyperbaric oxygen therapy History of Present Illness: Patient is 46-year-old with history of diabetes peripheral vascular disease and neuropathy who developed an ulcer of his right foot in November as a result of trauma. He was treated with antibiotics and transiently improved only to reappear with erythema and pain of his right foot. MRI showed evidence of an abscess and osteomyelitis. Patient required incision and drainage and is being discharged to complete course of antibiotics. He continues with a nonhealing diabetic foot ulcer of Gomez grade 3 severity. Allergies/Medications Allergies: Coded Allergies: No Known Allergies (12/16/16) Home Med List: Atorvastatin Calcium 20 MG TABLET 1 TAB PO AT BEDTIME CHOLESTEROL Dapagliflozin Propanediol (Farxiga) 5 MG TABLET 1 TAB PO DAILY DIABETES ( Reported) Insulin Detemir (Levemir) 100 UNIT/ML VIAL 20 UNITS SC BID DIABETES Insulin Lispro (Humalog Kwikpen U-100) 100 UNIT/ML INSULN.PEN 0 SC TID DM BEFORE MEALS Blood Insulin Sugar Units <80 0 81-150 8 151-200 10 201-250 12 251-300 14 301-350 16 351-400 18 >400 18 & Call Doctor AT BEDTIME Blood Insulin Sugar Units <80 0 81-100 0 101-200 0 201-250 0 251-300 3 301-350 4 351-400 5 >400 Call Doctor Levothyroxine Sodium (Synthroid) 100 MCG TABLET 1 TAB PO DAILY HYPOTHYROIDISM (Reported) Lisinopril (Prinivil) 5 MG TABLET 1 TAB PO DAILY HTN (Reported) Metformin HCl 500 MG TABLET 1 TAB PO BID DIABETES Oxycodone HCl 5 MG CAPSULE 1 CAP PO Q6P CELLULITIS Pregabalin (Lyrica) 150 MG CAPSULE 1 CAP PO BID NERVE DAMAGE (Reported) Vancomycin/0.9 % Sod Chloride (Vanco 1.5 Gm/250 Ml-0.9% NaCl) 1.5 GRAM/250 ML PLAST..BAG 1.5 GM IV Q12 OSTEOMYELITIS LAST DAY OF ABX 02/17/17 Review of Systems Review of Systems: Patient is status post vascular surgery intervention and debridement with a wound VAC in place patient denies history of your complaints seizures COPD pneumothorax or cardiac Past History Travel History Traveled to [place] past 21 day No Medical History Neurological: peripheral neuropathy EENT: diabetic retinopathy Cardiovascular: NONE Respiratory: NONE Gastrointestinal: NONE Hepatic: NONE Renal: nephrolithiasis Musculoskeletal: NONE Psychiatric: NONE Endocrine: diabetes, hypothyroidism Surgical History Surgical History: non-contributory Psychosocial History Where Do You Live? Home Smoking Status: Never Smoked Functional Ability ADLs Independent: dressing, eating, toileting, bathing. Ambulation: independent IADLs Independent: shopping, housework, finances, food prep, telephone, transportation , medication admin. Exam & Diagnostic Data Vital Signs and I&O Vital Signs Result Date Time Pulse Ox 94 01/22 1409 B/P 100/58 01/22 1409 O2 Delivery Room Air 01/22 140 Temp 98.4 01/22 1409 Pulse 78 01/22 1409 Resp 20 01/22 1409 Intake & Output 01/22 0000 01/21 1600 01/21 0800 Intake Total 675 600 Output Total 1600 750 500 Balance -925 -150 -500 Intake, IV 75 600 Intake, Oral 600 0 Output, Urine 1600 750 500 HEENT exam shows no adenopathy exam of his chest shows clear lung [place] cardiac exam shows a regular S1 and S2. The right foot diabetic ulcer will be evaluated tomorrow at the time of VAC change Assessment/Plan Impression/Plan: 46-year-old diabetic admitted with a abscess and osteomyelitis of the right foot in the setting of a traumatic ulcer having occurred in November. Referral was made for consideration of hyperbaric oxygen therapy for limb salvage. The patient appears to be a candidate for hyperbaric oxygen therapy for the treatment of a Gomez grade 3 diabetic foot ulcer based on chronic the presence of abscess formation and extension to bone. Hyperbaric treatment regimen would be 2.5 LYDIA FiO2 100% 90 minutes therapeutic treatment time for initial regimen of 30 treatments Consult Acknowledgment - Thank you for your consult request.
--- NOTE | 2017-01-24 06:33 | Discharge Summary ---
Visit Information Visit Dates Admission Date: 01/14/17 Discharge Date: 01/22/17 Hospital Course Course Attending Physician: DINA COLLAZO,CHAPO Tucker Primary Care Physician: DORA LYNN MD Consulting Request: 1 Consulting Specialty: Endocrinology Consulting Request: 2 Consulting Specialty: Infectious Disease Consulting Request: 3 Consulting Specialty: Podiatry Consulting Request: 4 Consulting Specialty: Thoracic/Vascular Surgery Hospital Course: 46 year old man with past medical hisotyr of insulin-dependent diabetes mellitus , diabetic peripheral neuropathy, and hypothyroidism seen for evaluation of pain /swelling/redness of his right foot. Patient was recently admitted to [facility] from 12/16/16-12/18/16 after sustaining a puncture wound to his right foot. Patient reports that he stepped on a "shelli nail" that penetrated his rubber sandal and then punctured his foot. The nail did not maria straight through his foot and was immediately removed. The patient then reportedly walked three miles without washing/cleaning the area as he did not have access to a car for which he subsequently developed blisters of the foot. His used a safety pin "sterilized with a sewing machine tester and alcohol" to drain the blister. Patient noted redness with associated pain and clear drainage from the site over the next day for which he came to the [facility] for evaluation. Patient was admitted to the general medicine floor and started on intravenous Unasyn. His antibiotics were converted to Ceftazidime for pseudomonas coverage. Patient demonstrated clinical improvement objectively with reduced swelling, erythema and drainage and remained afebrile with improved leukocytosis. He was discharged to home on oral ciprofloxacin to complete a 10 day total antibiotic course. MRI foot demonstrated no retained foreign body, fracture, or evidence of osteomyelitis. Patient received tetanus vaccination and intravenous immunoglobulin. Presently patient stated that he has had fevers up to 101.2 at home with new appearance of a black area between his 4th/5th toe with associated pain, redness , and swelling. He was lost to follow up from his PCP and Podiatrsit as he "arrived late" to his appointments. He was referred to the [facility] for further primary care but was unable to establish care for unclear reasons. ED Course: -Vitals: Temp 97.8-98.9, HR 80-85, RR 20-22, BP 104-133/70-82, O2 94-94% on room air -Significant Labs: WBC 10.8, Hgb/Hct 11.7/34.6, PLt 101, Na 131, BUN/Cr 0.6, Glu 272, HbA1c 10.1, Lactic Acid 0.9, TSH/T4 3.5/1.27, ESR 120, INR 1.30 -Studies: XR Right foot no osteo Right foot MRSA Osteomyelitis Patient with a history of poorly controlled insulin dependent diabetes melltius and recent hospitalization for right foot cellultis seen for evaluation of right foot pain and swelling. Patient was admitted to the general medicine floor for further evaluation. Xray of the extremity was negative for osteomyelitis, follow up MRI however was suspicious for osteomyelitis. Patient was initially started on Clinamycin/Ceftazidime prior to blood cultures being drawn. Podiatryand Infectious disease consults were placed for further evaluation. Patient was taken to the OR with podiatry for surgical debridement and tissue biopsy. Biopsy later demontrated growth of MRSA for which his antibiotic therapy was changed to intravenous Vancomycin. Patient was continued on antibiotics and taken to the OR a second time for revision/closure and placed with a wound vac. Given his clinical course, previous hospitalization, and multiple comorbidities a Vascular surgery consult was placed. Right leg angiogram was performed and did not identify any abnormality or require any intervention. PICC line was placed and patient was discharged to home to complete a four week total course of intravenous antibiotics. Poorly Controlled Insulin-Dependent Diabetes Mellitus Patient was given diabetic supplies during previous admission due to 'running out' with instruction to establish care with a primary care provider for further control. HbA1c identified to be 10.1 during admission. Patients blood sugars were consistently elevated for which an endocrinology consult was placed. Patient was optimized on a hypoglycemic regimen. He was started on Metformin on discharge and continued on his insulin regimen with instruction to follow up with endocrinology referrral after discharge. Allergies: Coded Allergies: No Known Allergies (12/16/16) Significant Procedures: SERVICE DATE: 01/14/17 EXAM TYPE: RAD - XRY-FOOT COMPLETE, R IMPRESSION: Exam is negative for osteomyelitis or septic arthritis. SERVICE DATE: 01/15/17- EXAM TYPE: MRI - MRI-RT FOOT W/O RADHA IMPRESSION: Skin irregularity and ulceration plantar to the 5th MTP joint with underlying soft tissue edema and a thin layer of fluid adjacent to the head of the 5th metatarsal. Moderate bone marrow edema in the head of the 5th metatarsal and diffuse bone marrow edema in the phalanges of the 5th toe, suspicious for osteomyelitis. There is localized fluid dorsal to the 5th proximal phalanx, as well. SERVICE DATE: 01/15/17 EXAM TYPE: US - US-UNILATERAL VENOUS DOPPLER IMPRESSION: No evidence of deep venous thrombosis involving the right lower extremity. Mildly enlarged right groin lymph nodes of indeterminate etiology which may be reactive in nature. Clinical correlation is recommended. SERVICE DATE: 01/16/17 EXAM TYPE: US - US-BILAT LOW EXTR ARTERIAL DOP IMPRESSION: 1. There are decreased velocities within the distal tibial vessels suggesting tibial vessel disease. 2. No major vessel inflow disease is demonstrated. SERVICE DATE: 01/19/17- EXAM TYPE: US - US-DUPLEX SCAN LOWER EXT ARTER IMPRESSION: Monophasic waveforms in the runoff vessels of the right lower extremity suggestive of peripheral arterial disease. Decreased velocity in the anterior tibial artery suggest hemodynamic significance. The left anterior tibial artery was unable to be seen and may be occluded. Greater sensitivity and specificity can be obtained with pre-and post exercise PVRs with IRINEO calculations. Also consider dedicated CTA for further anatomical detail. SERVICE DATE: 01/21/17- EXAM TYPE: RAD - XRY-FEMUR, LEFT 2 VIEWS IMPRESSION: Administrative dictation for intraoperative fluoroscopy provided during the performance of a left lower extremity arteriogram. SERVICE DATE: 01/21/17 EXAM TYPE: US - FLUORO GUID VENOUS ACCESS; INTERVENTIONAL SETUP; US-GUIDANCE VASCULAR ACCESS IMPRESSION: Successful ultrasound and fluoroscopically guided right upper extremity PICC line placement SERVICE DATE: 01/22/17 EXAM TYPE: RAD - XRY-FOOT TWO VIEWS RIGHT IMPRESSION: Status post transmetatarsal amputation of the fifth ray. PATIENT CARE UNIT CONFIDENTIAL COPY Operative/Inv Procedure Report Surgery Date: 01/15/17 Name of Procedure: 1 open incision and drainage deep to the D fashion with exposure of the extensor and flexor tendon and tendon sheath multiple sites right foot 2 open partial fifth ray resection right foot 3 intraoperative administration of ankle block anesthesia 4 excisional debridement Pre-Operative Diagnosis: 1 open infected wound right foot 2 osteomyelitis right foot 3 diabetic peripheral neuropathy Post-Operative Diagnosis: The same Estimated Blood Loss: less than 50ml Surgeon/Rooming House Inspector: RUI BAKER DPM Anesthesia: moderate sedation, block Operative/Procedure Note Note: After obtaining informed consent the patient was brought to the operating room and placed on the operating table in the supine position. The patient was then securely fastened to the operating table utilizing safety belt. After administration of IV sedation, 10 mL of 0.5% Marcaine plain was infiltrated about the patient's right ankle. The right foot and ankle within scrubbed prepped and draped in usual aseptic manner. Attention was directed to the right foot were large full-thickness necrotic was identified. A 15 blade was utilized sharply revised skin margins. Dissection was then carried down deep to the deep fascia with exposure of the extensor and flexor tendon and tendon sheath multiple sites, both proximally and distally. All necrotic nonviable infected tissue sharply evacuated from the wound bed. The dissection was then carried down to the distal fifth metatarsal, where the periosteum was incised reflected. Sagittal bone saw was utilized performed through and through osteotomy. The distal osseous segment was freed and passed from the operative field. Specimen was sent for both microbiologic and pathologic inspection. The open wound was then irrigated with 3 L of normal sterile saline infusion 50,000 units of bacitracin. Following this, the foot was redraped and the surgeon's top gloves were exchanged for clean gloves. Any bleeding vessels identified were cauterized or ligated as encountered. Nipple was then packed with iodoform and 2-0 nylon retention sutures were placed. The foot was dressed with an EBD pad Kerlix and an Brian wrap. The patient was noted to tolerate both procedure and anesthesia well and the patient was transported from the operating room to recovery with vital signs stable. PATIENT CARE UNIT CONFIDENTIAL COPY Operative/Inv Procedure Report Surgery Date: 01/20/17 Name of Procedure: 1 open incision and drainage deep to the deep fascia with exposure of the extensor and flexor tendon and tendon sheath multiple sites right foot 2 revisional partial fifth ray resection right foot 3 intraoperative administration of negative pressure wound therapy 4 intraoperative administration of ankle block anesthesia 5 excisional debridement Pre-Operative Diagnosis: 1 open necrotic wound right foot 2 osteomyelitis right foot 3 diabetic peripheral neuropathy Post-Operative Diagnosis: The same Estimated Blood Loss: less than 50ml Surgeon/Rooming House Inspector: RUI BAKER DPM Anesthesia: moderate sedation, block Operative/Procedure Note Note: After obtaining informed consent the patient was brought to the operating room and placed on the operating table in the supine position. The patient was then securely fastened to the operating table utilizing safety belt. After administration of IV sedation, 10 mL of 0.5% Marcaine plain was infiltrated about the patient's right ankle. The right foot and ankle within scrubbed prepped and draped in usual aseptic manner. Attention was directed the right foot, where a large full-thickness necrotic was identified. A 15 blade was utilized sharply revised skin margins. The dissection was then carried down deep to the deep fascia with exposure of the extensor and flexor tendon and tendon sheath multiple sites, both proximally and distally. All necrotic nonviable infected tissue sharply evacuated from the wound bed. The dissection was then carried down to the periosteum overlying the stump of the fifth metatarsal which was incised reflected. Sagittal bone saw was utilized to perform a through and through osteotomy in the distal 1 cm of exposed bone was cut and passed from the operative field specimen was sent for pathologic inspection. The open wound was then irrigated with 3 L of normal sterile saline infusion 50,000 units of bacitracin. Following this the foot was redraped and the surgeon's top gloves were changed clean gloves. Any bleeding vessels identified were cauterized or ligated as encountered. Negative pressure wound therapy was then placed followed by Kerlix and an Brian wrap. The patient was noted to tolerate both procedure and anesthesia well and the patient was transported from the operating room to recovery with vital signs stable. PATIENT CARE UNIT CONFIDENTIAL COPY Operative/Inv Procedure Report Surgery Date: 01/21/17 Name of Procedure: Aortogram Ultrasound-guided access Right leg angiogram Second-order catheterization of right common femoral artery Pre-Operative Diagnosis: Atherosclerosis and ulcer Post-Operative Diagnosis: The same Estimated Blood Loss: scant Surgeon/Rooming House Inspector: TATIANA CHACON MD Anesthesia: local monitored anesthesi Operative Indication: Right foot wound, tibial disease on ultrasound Operative/Procedure Note Note: Both groins groin was prepped with Betadine. Ultrasound was used to assess the left common femoral artery and vein. The common femoral artery was normal in appearance. The vein was medial compressible, and its normal anatomic position. 1% lidocaine was used for local. 21-gauge needle, an 0.018 a wire, dilator and sheath were used to access the common femoral artery over the femoral head. A 0.035 J wire was placed, and a 5 Georgian sheath was placed. A 5 Georgian flushed catheter was placed. Aortogram showed patent aorto, bilateral common, internal, external iliac arteries with no significant stenoses. 035 Glidewire and catheters placed in the right common femoral artery. Hand injection showed patent right common femoral artery, pain or profundofemoral artery, patent right superficial femoral artery at the thigh. Additional injection shows a widely patent superficial femoral artery and popliteal artery with no disease. In the calf the tibial peroneal trunk is open. Anterior tibial arteries patent but rather small in caliber and patent down to the dorsalis pedis area. The peroneal artery is patent to the ankle. The posterior tibial arteries widely patent probably down to the foot. There is no disease that required treatment. Flow to the foot is excellent, via both posterior tibial and anterior tibial arteries. Sheath was removed and pressure was held for hemostasis. Disposition Summary Disposition Principal Diagnosis: Right foot MRSA Osteomyelitis Additional Diagnosis: Poorly controlled insulin dependent diabetes mellitus Discharge Disposition: home or self care Discharge Instructions General Discharge Information Code Status: Full Code Patient's Diet: Diabetic Diet Patient's Activity: As tolerated with assistance of rolling walking as per podiatry/physical therapy assessment Follow-Up Instructions/Appts: Schedule an appointment to establish care with [facility] after discharge. Continue your antibiotics therapy daily as directed for four total weeks (until 02/17/17). Follow up with Dr. Proctor after discharge. Start taking Atorvastatin and Metformin as directed. Stop taking Farxiga. Follow up with Dr. David as an outpatient for further control of your diabetes. Your insulin regimen has changed - start taking Levemir 20 units twice a day and your short acting insulin as directed. Medications at Discharge Discharge Medications: Stop taking the following medications: Dapagliflozin Propanediol (Farxiga) 5 MG TABLET ORAL DAILY Continue taking these medications: Pregabalin (Lyrica) 150 MG CAPSULE 1 Capsule ORAL TWICE DAILY Qty = 60 Comments: Last Taken: 01/22/17 Time: 10:30 AM Oxycodone HCl (Oxycodone HCl) 5 MG CAPSULE 1 Capsule ORAL EVERY SIX HOURS NEEDED Qty = 10 Comments: Last Taken: 01/22/17 Time: 3:30 PM Lisinopril (Prinivil) 5 MG TABLET 1 Tablet ORAL DAILY Comments: NOT GIVEN IN HOSPITAL Levothyroxine Sodium (Synthroid) 100 MCG TABLET 1 Tablet ORAL DAILY Comments: Last Taken: 01/22/17 Time: 6:30 AM Start taking the following new medications: Vancomycin/0.9 % Sod Chloride (Vanco 1.5 Gm/250 Ml-0.9% NaCl) 1.5 GRAM/250 ML PLAST..BAG 1.5 Gram INTRAVEN EVERY 12 HOURS Qty = 54 No Refills Instructions: LAST DAY OF ABX 02/17/17 Comments: Last Taken: 01/22/17 Time: 9:30 AM Atorvastatin Calcium (Atorvastatin Calcium) 20 MG TABLET 1 Tablet ORAL AT BEDTIME Qty = 30 No Refills Comments: NOT GIVEN IN HOSPTIAL Metformin HCl (Metformin HCl) 500 MG TABLET 1 Tablet ORAL TWICE DAILY Qty = 60 No Refills Comments: NOT GIVEN IN HOSPITAL The following medications have been changed: Old: Insulin Detemir (Levemir) 100 UNIT/ML VIAL 10 Units Inject into fatty tissue TWICE DAILY Qty = 1 New: Insulin Detemir (Levemir) 100 UNIT/ML VIAL 20 Units Inject into fatty tissue TWICE DAILY Qty = 1 Comments: Last Taken: 01/22/17 Time: 9:30 AM Old: Insulin Lispro (Humalog Kwikpen U-100) 100 UNIT/ML INSULN.PEN 10 Units Inject into fatty tissue THREE TIMES DAILY Qty = 15 New: Insulin Lispro (Humalog Kwikpen U-100) 100 UNIT/ML INSULN.PEN 0 Inject into fatty tissue THREE TIMES DAILY Qty = 15 Instructions: BEFORE MEALS Blood Insulin Sugar Units <80 0 81-150 8 151-200 10 201-250 12 251-300 14 301-350 16 351-400 18 >400 18 & Call Doctor AT BEDTIME Blood Insulin Sugar Units <80 0 81-100 0 101-200 0 201-250 0 251-300 3 301-350 4 351-400 5 >400 Call Doctor Comments: NOT GIVEN IN HOSPITAL Copies To: OSWALDO COLLAZO,TATIANA DAVIS; SAMUEL CARDENAS,RUI; LEAH COLLAZO,DORA Simons; SANTANA COLLAZO,HERON Todd; SAMMI COLLAZO,ADITYA Stout; GISELL COLLAZO,STELLA
== END 2017-01-22 16:40 | disposition home health service (06) | DRG 617 ==
LOC: ERH 20:17 → ERHI 23:30 → 2NB 23:30 → ENRESERV 23:53 → 2NB 01-15 00:47 → ENPENDDIS 01-22 14:43 → 2NB 01-22 16:40
PROVIDERS: Emergency Medicine; Internal Medicine; Internal Medicine Interventional Cardiology; ADMIT Internal Medicine
PROC: 0Y6M0ZF Detachment at Right Foot, Partial 5th Ray, Open Approach (ICD-10-PCS; principal; 2017-01-15)
PROC: 0Y6M0ZF Detachment at Right Foot, Partial 5th Ray, Open Approach (ICD-10-PCS; 2017-01-20)
PROC: B41DZZZ Fluoroscopy of Aorta and Bilateral Lower Extremity Arteries (ICD-10-PCS; 2017-01-21)
PROC: 02HV33Z Insertion of Infusion Device into Superior Vena Cava, Percutaneous Approach (ICD-10-PCS; 2017-01-21)
DX: E11.69 Type 2 diabetes mellitus with other specified complication (principal); M86.171 Other acute osteomyelitis, right ankle and foot; D69.6 Thrombocytopenia, unspecified; E11.22 Type 2 diabetes mellitus with diabetic chronic kidney disease; E11.65 Type 2 diabetes mellitus with hyperglycemia; L03.115 Cellulitis of right lower limb; E03.9 Hypothyroidism, unspecified; E11.42 Type 2 diabetes mellitus with diabetic polyneuropathy; E11.319 Type 2 diabetes mellitus with unspecified diabetic retinopathy without macular edema; E11.621 Type 2 diabetes mellitus with foot ulcer; L97.519 Non-pressure chronic ulcer of other part of right foot with unspecified severity; N18.9 Chronic kidney disease, unspecified; E11.628 Type 2 diabetes mellitus with other skin complications; B95.62 Methicillin resistant Staphylococcus aureus infection as the cause of diseases classified elsewhere; Z79.4 Long term (current) use of insulin
CPT/HCPCS: 2NBP; 2NBSP; 75657; 87070; 87075; 87184; ERO; 36415; 73552; 73620-RT; 73630-RT; 77001; 81001; 82436; 87040; 87147; 88305; 88307; 93005; 93010; 93925; 96374; 96375; C1725; C1769; C1894; J0713; J1642; J1644; J1815; J2001; J3370; J7040; J7042; Q9967

== ENCOUNTER 2017-01-26 03:52 | Emergency (ER) | payer OTHER ==
[~2017-01-26] VITALS: Ht 180.3 cm; Wt 112.0 kg
[~2017-01-26 03:52] MED LIST changes: +ATORVASTATIN CA20 M1 PO; +FARXIGA5 M1 PO; +METFORMIN HCL500 M3 PO; +PRINIVIL5 M1 PO; +SYNTHROID100 MCG PO; +VANCO 1.51.5 GM/250 IV
--- NOTE | 2017-01-26 03:56 | ED CARDIAC/CP/PALPITATIONS ---
History of Present Illness General Chief Complaint: Chest Pain Stated Complaint: BIBA, CP Source: family, EMS Exam Limitations: no limitations Vital Signs & Intake/Output Vital Signs & Intake/Output Vital Signs Date Time Temp Pulse Resp B/P B/P Pulse O2 O2 Flow FiO2 Mean Ox Delivery Rate 01/26 0357 96.7 87 19 133/88 98 Room Air Allergies Coded Allergies: No Known Allergies (12/16/16) Reconcile Medications Atorvastatin Calcium 20 MG TABLET 1 TAB PO AT BEDTIME CHOLESTEROL Insulin Detemir (Levemir) 100 UNIT/ML VIAL 20 UNITS SC BID DIABETES Insulin Lispro (Humalog Kwikpen U-100) 100 UNIT/ML INSULN.PEN 0 SC TID DM BEFORE MEALS Blood Insulin Sugar Units <80 0 81-150 8 151-200 10 201-250 12 251-300 14 301-350 16 351-400 18 >400 18 & Call Doctor AT BEDTIME Blood Insulin Sugar Units <80 0 81-100 0 101-200 0 201-250 0 251-300 3 301-350 4 351-400 5 >400 Call Doctor Levothyroxine Sodium (Synthroid) 100 MCG TABLET 1 TAB PO DAILY HYPOTHYROIDISM (Reported) Lisinopril (Prinivil) 5 MG TABLET 1 TAB PO DAILY HTN (Reported) Metformin HCl 500 MG TABLET 1 TAB PO BID DIABETES Oxycodone HCl 5 MG CAPSULE 1 CAP PO Q6P CELLULITIS Oxycodone HCl/Acetaminophen (Percocet 5-325 MG Tablet) 5 MG-325 MG TABLET 1-2 TAB PO TID PRN pain twelve... [id number] Pregabalin (Lyrica) 150 MG CAPSULE 1 CAP PO BID NERVE DAMAGE (Reported) Vancomycin/0.9 % Sod Chloride (Vanco 1.5 Gm/250 Ml-0.9% NaCl) 1.5 GRAM/250 ML PLAST..BAG 1.5 GM IV Q12 OSTEOMYELITIS LAST DAY OF ABX 02/17/17 Triage Nurses Notes Reviewed? yes Onset: Gradual Duration: day(s):, waxing and waning Timing: recent history Quality/Severity: moderate Location: central Radiation: no radiation Activities at Onset: "I only get it when I give myself vancomycin." Prior Chest Pain/Card Workup: no prior chest pain Modifying Factors: Improves With: rest. HPI: 46 yo gentleman h/o diabetes, recent right 5th toe amputation for osteomyelitis on 01/22, presents with chest tightness, "When I put my vancomycin in at 250 cc/hr, I feel a tightness in my chest. In the hospital, it was given to me at 125 cc/hr and I was fine. I've had these symptoms for the past 3 days. He notes that his symptoms resolve when the vancomycin has finished." He has had no chest pain for the past 6-8 hours. He notes pain in his right toe and foot at the site of his surgery on 01/22/17 he notes that the picc line is functioning appropriately. He has no fever, chills, cough, phlegm. He is otherwise well. Past History Travel History Traveled to [place] past 21 day No Medical History Any Pertinent Medical History? see below for history Neurological: peripheral neuropathy EENT: diabetic retinopathy Cardiovascular: NONE Respiratory: NONE Gastrointestinal: NONE Hepatic: NONE Renal: nephrolithiasis Musculoskeletal: NONE Psychiatric: NONE Endocrine: diabetes, hypothyroidism History of MRSA: No History of VRE: No History of CDIFF: No Influenza Vaccine: 07/07/16 Tetanus Vaccine: 12/17/16 Surgical History Surgical History: non-contributory Psychosocial History Who do you live with Spouse What is your primary language Filipino Family History Hx Contributory? No Review of Systems Review of Systems Constitutional: Reports: no symptoms. EENTM: Reports: no symptoms. Respiratory: Reports: no symptoms. Cardiovascular: Reports: no symptoms. GI: Reports: no symptoms. Genitourinary: Reports: no symptoms. Musculoskeletal: Reports: no symptoms. Skin: Reports: no symptoms. Neurological/Psychological: Reports: no symptoms. Hematologic/Endocrine: Reports: no symptoms. Immunologic/Allergic: Reports: no symptoms. All Other Systems: Reviewed and Negative Physical Exam Physical Exam General Appearance: well developed/nourished, mild distress Head: atraumatic, normal appearance Eyes: Bilateral: normal appearance. Ears, Nose, Throat: normal pharynx, normal ENT inspection Neck: normal inspection, supple, full range of motion Respiratory: normal breath sounds, no respiratory distress, quiet respiration, lungs clear, sternal chest wall tenderness to palpation. Cardiovascular: regular rate/rhythm Gastrointestinal: normal bowel sounds, soft, non-tender Back: normal inspection, normal range of motion Extremities: normal inspection, normal capillary refill, normal range of motion, no edema, right foot with clean bandage... wound vac in place and functioning normally. no sign of erythema, swelling, or signs of infection. Neurologic/Psych: no motor/sensory deficits, awake, alert, oriented x 3 Skin: intact, normal color, warm/dry Core Measures ACS in differential dx? No Severe Sepsis Present: No Septic Shock Present: No Progress Differential Diagnosis: med reaction vs mi vs acs vs pe vs other. Plan of Care: Orders Procedure Date/time Status TROPONIN LEVEL 01/26 357 Complete PARTIAL THROMBOPLASTIN TIME 01/26 357 Complete PROTHROMBIN TIME 01/26 357 Complete COMPREHENSIVE METABOLIC PANEL 01/26 357 Complete CBC WITHOUT DIFFERENTIAL 01/26 357 Complete EKG 01/26 354 Active Laboratory Tests 01/26/17 0454: Anion Gap 12, Estimated GFR > 60, BUN/Creatinine Ratio 16.7, Glucose 263 H, Calcium 8.8, Total Bilirubin 0.5, AST 24, ALT 34, Alkaline Phosphatase 114, Troponin I < 0.01, Total Protein 7.2, Albumin 3.4 L, Globulin 3.8, Albumin/ Globulin Ratio 0.9 L, PT 12.8 H, INR 1.22 H, APTT 32, CBC w Diff NO MAN DIFF REQ, RBC 3.70 L, MCV 88.6, MCH 30.3, RDW 13.8, MPV 9.2, Gran % 63.8, Lymphocytes % 25.8, Monocytes % 5.3, Eosinophils % 3.8, Basophils % 1.3, Absolute Granulocytes 4.9, Absolute Lymphocytes 2.0, Absolute Monocytes 0.4, Absolute Eosinophils 0.3, Absolute Basophils 0.1, PUBS MCHC 34.2 Diagnostic Imaging: Viewed by Me: CT Scan. Discussed w/RAD: CT Scan. Radiology Impression: ct angio...no PE, otherwise neg Initial ED EKG: normal axis, normal intervals, normal p-waves, normal QRS complex, normal sinus rhythm Comments: PATIENT: DORA STUART PRESENT AGE: 46 PATIENT ACCOUNT NO: [id number] : 70 LOCATION: [facility] ORDERING PHYSICIAN: MATTHIEU VALERA MD SERVICE DATE: 01/26/17 EXAM TYPE: CAT - CTA CHEST-PULMONARY EMBOLISM EXAMINATION: CT ANGIOGRAM OF THE CHEST WITH AND WITHOUT CONTRAST (CT PULMONARY ANGIOGRAM FOR PE) CLINICAL INFORMATION: CHEST PAIN, RECENT SURGERY COMPARISON: None TECHNIQUE: Prior to contrast administration, noncontrast localization images were obtained. Subsequently, multidetector volumetric imaging was performed from the thoracic inlet to below the diaphragms following the administration of 62 mL Optiray 350 intravenous contrast. No contrast reaction reported. Sagittal, coronal, and MIP oblique sagittal reformatted images were obtained on the CT workstation, uploaded to PACS, and reviewed. Total exam dose-length product 573.75 mGy-cm. FINDINGS: QUALITY OF STUDY/CONTRAST BOLUS: Satisfactory PULMONARY ARTERIES: No central or segmental pulmonary emboli. THORACIC AORTA: No aneurysm or dissection. LUNG: No focal consolidation, nodules or masses. PLEURA: No pleural effusion or pneumothorax. MEDIASTINUM: Normal heart size. No pericardial effusion. No hilar or mediastinal lymphadenopathy. No evidence of septal bowing or right heart strain. CHEST WALL/AXILLA: No axillary or internal mammary lymphadenopathy. OSSEOUS STRUCTURES: Degenerative changes are noted in the spine. UPPER ABDOMEN: Unremarkable. No reflux of contrast into the hepatic veins to suggest elevated right heart pressures. IMPRESSION: No evidence of pulmonary embolus or other acute intrathoracic findings. VTE: negative DICTATED BY: GEOVANNA ARELLANO MD DATE/TIME DICTATED:01/26/17452 BIG DATA DEVELOPER:NOAM DATE/TIME TRANSCRIBED:01/26/17452 CONFIDENTIAL, DO NOT COPY WITHOUT APPROPRIATE AUTHORIZATION. <Electronically signed in Other Vendor System> SIGNED BY: GEOVANNA ARELLANO MD 01/26/17 0505 Departure Departure Disposition: HOME OR SELF CARE Condition: Stable Clinical Impression Primary Impression: Medication side effect Referrals: LEAH COLLAZO,DORA Simons (PCP/Family) Departure Forms: Customer Survey General Discharge Information Prescriptions: Current Visit Scripts Oxycodone HCl/Acetaminophen (Percocet 5-325 MG Tablet) 1-2 TAB PO TID PRN pain #12 TAB twelve... [id number] Comments pt has had intermittent symptoms related to his vancomycin administration at a higher rate... he has been asymptomatic for the past 6-8 hours.... ekg/trop neg... he wishes to go home and will follow up with his pmd....he will administer his vancomycin at a slower rate... close follow up encouraged. Critical Care Note Critical Care Note Critical Care Time: non-applicable
--- NOTE | 2017-01-26 05:05 | CT SCAN REPORT ---
EXAMINATION: CT ANGIOGRAM OF THE CHEST WITH AND WITHOUT CONTRAST (CT PULMONARY ANGIOGRAM FOR PE) CLINICAL INFORMATION: CHEST PAIN, RECENT SURGERY COMPARISON: None TECHNIQUE: Prior to contrast administration, noncontrast localization images were obtained. Subsequently, multidetector volumetric imaging was performed from the thoracic inlet to below the diaphragms following the administration of 62 mL Optiray 350 intravenous contrast. No contrast reaction reported. Sagittal, coronal, and MIP oblique sagittal reformatted images were obtained on the CT workstation, uploaded to PACS, and reviewed. Total exam dose-length product 573.75 mGy-cm. FINDINGS: QUALITY OF STUDY/CONTRAST BOLUS: Satisfactory PULMONARY ARTERIES: No central or segmental pulmonary emboli. THORACIC AORTA: No aneurysm or dissection. LUNG: No focal consolidation, nodules or masses. PLEURA: No pleural effusion or pneumothorax. MEDIASTINUM: Normal heart size. No pericardial effusion. No hilar or mediastinal lymphadenopathy. No evidence of septal bowing or right heart strain. CHEST WALL/AXILLA: No axillary or internal mammary lymphadenopathy. OSSEOUS STRUCTURES: Degenerative changes are noted in the spine. UPPER ABDOMEN: Unremarkable. No reflux of contrast into the hepatic veins to suggest elevated right heart pressures. IMPRESSION: No evidence of pulmonary embolus or other acute intrathoracic findings. VTE: negative
[2017-01-26 05:12] LABS: PT 12.8 SEC (9.4-12.5); PTT 32 SEC (25-37)
[2017-01-26 05:14] LABS: ABSOLUTE BASOPHIL COUNT 0.1 /CUMM (0.0-0.2); ABSOLUTE EOSINOPHIL COUNT 0.3 /CUMM (0.0-0.7); ABSOLUTE GRANULOCYTE CT 4.9 /CUMM (1.4-6.5); ABSOLUTE MONOCYTE COUNT 0.4 /CUMM (0.10-0.60); BASOPHIL % 1.3 % (0.0-2.0); EOSINOPHIL % 3.8 % (0-5); GRANULOCYTE % 63.8 % (42.2-75.2); HEMATOCRIT 32.8 % (42-52); MEAN CORPUSCULAR HGB 30.3 PG (27.0-31.0); MEAN CORPUSCULAR HGB CONC 34.2 G/DL (33.0-37.0); MEAN CORPUSCULAR VOLUME 88.6 FL (80.0-94.0); MEAN PLATELET VOLUME 9.2 FL (7.4-10.4); PLATELET COUNT 245 /CUMM (130-400); RBC DISTRIBUTION WIDTH 13.8 % (11.5-14.5); WHITE BLOOD CELL COUNT 7.7 /CUMM (4.8-10.8)
[2017-01-26] MEDS ORDERED: PERCOCET 5-3251 EACH PO (06:12)
[2017-01-26 07:01] VITALS: BP 122/61
== END 2017-01-26 07:11 ==
LOC: ERH 03:52
PROVIDERS: Pediatrics
DX: T36.8X5A Adverse effect of other systemic antibiotics, initial encounter (principal); R07.89 Other chest pain
CPT/HCPCS: 93005; 93010; 96374; J1885

== ENCOUNTER 2017-02-16 00:38 | Emergency (ER) | payer MEDICARE, OTHER ==
[~2017-02-16] VITALS: Ht 154.9 cm; Wt 106.1 kg
[~2017-02-16 00:38] MED LIST changes: +PERCOCET 5-3251 EACH PO
--- NOTE | 2017-02-16 00:58 | ED UPPER/LOWER EXTREMITY COMPL ---
History of Present Illness General Chief Complaint: Lower Extremity Injury Stated Complaint: "PER PT RT FOOT PAIN" Source: patient Exam Limitations: no limitations Vital Signs & Intake/Output Vital Signs & Intake/Output Vital Signs Date Time Temp Pulse Resp B/P B/P Pulse O2 O2 Flow FiO2 Mean Ox Delivery Rate 02/16 0057 97.1 88 18 150/83 97 Room Air Allergies Coded Allergies: No Known Allergies (12/16/16) Reconcile Medications Atorvastatin Calcium 20 MG TABLET 1 TAB PO AT BEDTIME CHOLESTEROL Insulin Detemir (Levemir) 100 UNIT/ML VIAL 20 UNITS SC BID DIABETES Insulin Lispro (Humalog Kwikpen U-100) 100 UNIT/ML INSULN.PEN 0 SC TID DM BEFORE MEALS Blood Insulin Sugar Units <80 0 81-150 8 151-200 10 201-250 12 251-300 14 301-350 16 351-400 18 >400 18 & Call Doctor AT BEDTIME Blood Insulin Sugar Units <80 0 81-100 0 101-200 0 201-250 0 251-300 3 301-350 4 351-400 5 >400 Call Doctor Levothyroxine Sodium (Synthroid) 100 MCG TABLET 1 TAB PO DAILY HYPOTHYROIDISM (Reported) Lisinopril (Prinivil) 5 MG TABLET 1 TAB PO DAILY HTN (Reported) Metformin HCl 500 MG TABLET 1 TAB PO BID DIABETES Oxycodone HCl 5 MG CAPSULE 1 CAP PO Q6P CELLULITIS Oxycodone HCl/Acetaminophen (Percocet 5-325 MG Tablet) 5 MG-325 MG TABLET 1-2 TAB PO TID PRN pain twelve... [id number] Oxycodone HCl/Acetaminophen (Percocet 5-325 MG Tablet) 5 MG-325 MG TABLET 1 TAB PO 4XDP PRN PAIN SIX...[id number] Pregabalin (Lyrica) 150 MG CAPSULE 1 CAP PO BID NERVE DAMAGE (Reported) Vancomycin/0.9 % Sod Chloride (Vanco 1.5 Gm/250 Ml-0.9% NaCl) 1.5 GRAM/250 ML PLAST..BAG 1.5 GM IV Q12 OSTEOMYELITIS LAST DAY OF ABX 02/17/17 Triage Note: PT TO ED WITH COMPLAINTS OF R FOOT PAIN S/P DOOR BEING SLAMMED ON IT. PT STATES 10/10 PAIN. PT HAS A DRAINAGE TO R FOOT FROM SMALL TOE AMPUTATION. Triage Nurses Notes Reviewed? yes Onset: Abrupt Duration: minute(s):, continues in ED Timing: single episode today Severity: moderate Pain/Injury Location: Right: Foot. Method of Injury: direct blow Modifying Factors: Worsens With: movement. Associated Symptoms: swelling HPI: 47-year-old gentleman status post amputation of his right fifth toe presents with right foot pain for the past 45 minutes. He states that his right foot was slammed in a door. He notes pain and swelling. He has a wound VAC over his right fifth digit. The wound VAC is still intact. He has no fever chills or erythema. He is otherwise well and has no other concerns. Past History Travel History Traveled to [place] past 21 day No Medical History Any Pertinent Medical History? see below for history Neurological: peripheral neuropathy EENT: diabetic retinopathy Cardiovascular: NONE Respiratory: NONE Gastrointestinal: NONE Hepatic: NONE Renal: nephrolithiasis Musculoskeletal: NONE Psychiatric: NONE Endocrine: diabetes, hypothyroidism History of MRSA: No History of VRE: No History of CDIFF: No Tetanus Vaccine: 12/17/16 Surgical History Surgical History: non-contributory Psychosocial History Who do you live with Spouse What is your primary language Moroccan Family History Hx Contributory? No Review of Systems Review of Systems Constitutional: Reports: no symptoms. EENTM: Reports: no symptoms. Respiratory: Reports: no symptoms. Cardiovascular: Reports: no symptoms. Gastrointestinal/Abdominal: Reports: no symptoms. Genitourinary: Reports: no symptoms. Musculoskeletal: Reports: no symptoms. Skin: Reports: no symptoms. Neurological/Psychological: Reports: no symptoms. Hematologic/Endocrine: Reports: no symptoms. Immunological: Reports: no symptoms. All Other Systems: Reviewed and Negative Physical Exam Physical Exam General Appearance: well developed/nourished, mild distress Head: atraumatic Eyes: Bilateral: normal appearance. Ears, Nose, Throat: normal pharynx, normal ENT inspection, hearing grossly normal Neck: normal inspection, supple Cardiovascular/Respiratory: regular rate/rhythm Back: normal inspection Leg Right: right fifth toe surgically absent. Wound VAC over the wound is intact. There is is moderate tenderness and mild swelling without erythema over the fourth phalangeal area. Skin: intact, normal color, warm/dry Lymphatic: no anterior cervical oscar Progress Differential Diagnosis: contusion, dislocation, fracture Plan of Care: Current Medications Sig/[place] Start time Last Medication Dose Stop Time Status Admin Oxycodone/ 1 TAB ONCE ONE 02/16 245 UNVr 02/16 Acetaminophen 02/16 246 0250 (Percocet) Diagnostic Imaging: Viewed by Me: Radiology Read. Discussed w/RAD: Radiology Read. Radiology Impression: r foot... 4th Comments: PATIENT: DORA STUART PRESENT AGE: 47 PATIENT ACCOUNT NO: [id number] : 70 LOCATION: [facility] ORDERING PHYSICIAN: MATTHIEU VALERA MD SERVICE DATE: 02/16/17 EXAM TYPE: RAD - XRY-FOOT COMPLETE, R XR FOOT, RIGHT CLINICAL INFORMATION: Status post contusion. COMPARISON: Foot radiographs January 22, 2017. TECHNIQUE: AP, lateral, and oblique views of the right foot. FINDINGS: There is a comminuted intra-articular fracture involving the proximal fourth phalanx with dorsal subluxation of the major fracture fragment. No definite additional fractures are identified. The remaining bony articulations are maintained. Redemonstrated postoperative changes following transmetatarsal amputation of the fifth ray. Large hypertrophic spurs at the Achilles and plantar aponeurosis insertions of the calcaneus. Arterial atherosclerotic calcification. IMPRESSION: - There is a comminuted intra-articular fracture involving the proximal fourth phalanx with dorsal subluxation of the major fracture fragment. - Redemonstrated postoperative changes following transmetatarsal amputation of the fifth ray. DICTATED BY: RISA ZARAGOZA MD DATE/TIME DICTATED:02/16/17200 DEDICATED INTERMODAL TRUCK DRIVER:NOAM DATE/TIME TRANSCRIBED:02/16/17200 CONFIDENTIAL, DO NOT COPY WITHOUT APPROPRIATE AUTHORIZATION. <Electronically signed in Other Vendor System> SIGNED BY: RISA ZARAGOZA MD 02/16/17211 Departure Departure Disposition: HOME OR SELF CARE Condition: Stable Clinical Impression Primary Impression: Toe fracture, right Referrals: DORA LYNN MD (PCP/Family) Departure Forms: Customer Survey General Discharge Information Prescriptions: Current Visit Scripts Oxycodone HCl/Acetaminophen (Percocet 5-325 MG Tablet) 1 TAB PO 4XDP PRN PAIN #6 TAB SIX...[id number] Comments hard soled shoe given to patient... 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
--- NOTE | 2017-02-16 02:12 | RADIOLOGY REPORT ---
XR FOOT, RIGHT CLINICAL INFORMATION: Status post contusion. COMPARISON: Foot radiographs January 22, 2017. TECHNIQUE: AP, lateral, and oblique views of the right foot. FINDINGS: There is a comminuted intra-articular fracture involving the proximal fourth phalanx with dorsal subluxation of the major fracture fragment. No definite additional fractures are identified. The remaining bony articulations are maintained. Redemonstrated postoperative changes following transmetatarsal amputation of the fifth ray. Large hypertrophic spurs at the Achilles and plantar aponeurosis insertions of the calcaneus. Arterial atherosclerotic calcification. IMPRESSION: - There is a comminuted intra-articular fracture involving the proximal fourth phalanx with dorsal subluxation of the major fracture fragment. - Redemonstrated postoperative changes following transmetatarsal amputation of the fifth ray.
[2017-02-16] MEDS ORDERED: PERCOCET 5-3251 EACH PO (02:40)
[2017-02-16 02:53] VITALS: BP 149/81
== END 2017-02-16 02:54 ==
LOC: ERH 00:38
DX: S92.511A Displaced fracture of proximal phalanx of right lesser toe(s), initial encounter for closed fracture (principal); W23.0XXA Caught, crushed, jammed, or pinched between moving objects, initial encounter; Y92.9 Unspecified place or not applicable; Y93.9 Activity, unspecified
CPT/HCPCS: 73630-RT

== ENCOUNTER 2017-02-22 21:30 | Emergency (ER) | payer MEDICARE, OTHER ==
[~2017-02-22] VITALS: Ht 180.3 cm; Wt 108.0 kg
[2017-02-22 21:36] VITALS: BP 122/83
--- NOTE | 2017-02-22 22:13 | ED ANKLE/FOOT INJURY COMPLAINT ---
History of Present Illness General Chief Complaint: Low Back Pain/Injury Stated Complaint: LB/R LEG PAIN Source: patient, old records Exam Limitations: no limitations Vital Signs & Intake/Output Vital Signs & Intake/Output Vital Signs Date Time Temp Pulse Resp B/P B/P Pulse O2 O2 Flow FiO2 Mean Ox Delivery Rate 02/226 97.9 90 16 122/83 99 Room Air Allergies Coded Allergies: No Known Allergies (12/16/16) Reconcile Medications Atorvastatin Calcium 20 MG TABLET 1 TAB PO AT BEDTIME CHOLESTEROL Insulin Detemir (Levemir) 100 UNIT/ML VIAL 20 UNITS SC BID DIABETES Insulin Lispro (Humalog Kwikpen U-100) 100 UNIT/ML INSULN.PEN 0 SC TID DM BEFORE MEALS Blood Insulin Sugar Units <80 0 81-150 8 151-200 10 201-250 12 251-300 14 301-350 16 351-400 18 >400 18 & Call Doctor AT BEDTIME Blood Insulin Sugar Units <80 0 81-100 0 101-200 0 201-250 0 251-300 3 301-350 4 351-400 5 >400 Call Doctor Levothyroxine Sodium (Synthroid) 100 MCG TABLET 1 TAB PO DAILY HYPOTHYROIDISM (Reported) Lisinopril (Prinivil) 5 MG TABLET 1 TAB PO DAILY HTN (Reported) Metformin HCl 500 MG TABLET 1 TAB PO BID DIABETES Oxycodone HCl 5 MG CAPSULE 1 CAP PO Q6P CELLULITIS Oxycodone HCl/Acetaminophen (Percocet 5-325 MG Tablet) 5 MG-325 MG TABLET 1-2 TAB PO TID PRN pain twelve... [id number] Oxycodone HCl/Acetaminophen (Percocet 5-325 MG Tablet) 5 MG-325 MG TABLET 1 TAB PO 4XDP PRN PAIN SIX...[id number] Oxycodone HCl/Acetaminophen (Percocet 5-325 MG Tablet) 5 MG-325 MG TABLET 1-2 TAB PO Q6P PRN PAIN Pregabalin (Lyrica) 150 MG CAPSULE 1 CAP PO BID NERVE DAMAGE (Reported) Vancomycin/0.9 % Sod Chloride (Vanco 1.5 Gm/250 Ml-0.9% NaCl) 1.5 GRAM/250 ML PLAST..BAG 1.5 GM IV Q12 OSTEOMYELITIS LAST DAY OF ABX 02/17/17 Triage Note: PRESENTS TO THE ED COMPLAINING OF LOW BACK, REPORTS CHRONIC ARTHRITIS, DENIED TRAUMA. Triage Nurses Notes Reviewed? yes HPI: Patient had recent toe amputation on his right foot. Patient then subsequently fractured another toe on that foot. Patient has a wound VAC on. Patient is having increased pain and throbbing to his foot. Patient also has neuropathy in both feet. Patient ran out of Percocet and cannot get anymore until she sees Dr. Baker. The pain is 10 out of 10. The pain increases with ambulation. There are no herpetic pain radiates into both lower legs however the pain from the surgery and liver toe fracture do not radiate. Past History Travel History Traveled to [place] past 21 day No Medical History Any Pertinent Medical History? see below for history Neurological: peripheral neuropathy EENT: diabetic retinopathy Cardiovascular: NONE Respiratory: NONE Gastrointestinal: NONE Hepatic: NONE Renal: nephrolithiasis Musculoskeletal: NONE Psychiatric: NONE Endocrine: diabetes, hypothyroidism History of MRSA: No History of VRE: No History of CDIFF: No Tetanus Vaccine: 12/17/16 Surgical History Surgical History: non-contributory Psychosocial History Who do you live with Spouse What is your primary language Macedonian Tobacco Use: Never used ETOH Use: occasional use Illicit Drug Use: denies illicit drug use Family History Hx Contributory? No Review of Systems Review of Systems Constitutional: Reports: no symptoms. Respiratory: Reports: no symptoms. Cardiovascular: Reports: no symptoms. GI: Reports: no symptoms. Musculoskeletal: Reports: see HPI. Neurological/Psychological: Reports: see HPI. Immunologic/Allergic: Reports: no symptoms. Physical Exam Physical Exam General Appearance: well developed/nourished, alert, awake, mild distress Eyes: Bilateral: PERRL, EOMI. Neck: normal inspection, supple, full range of motion Cardiovascular/Respiratory: normal breath sounds, normal peripheral pulses, regular rate/rhythm, no respiratory distress Leg/Knee/Thigh Left: normal range of motion, normal inspection Leg/Knee/Thigh Right: normal range of motion, normal inspection Foot Right: POST TOE AMPUTATION, NO SIGNS OF ACTIVE INFECTION, WOUND VAC IN PLACE. Neuro/Vascular: DECREASED SENSATION B/L Progress Differential Diagnosis: fracture Plan of Care: Current Medications Sig/[place] Start time Last Medication Dose Stop Time Status Admin Oxycodone/ 1 TAB ONCE ONE 02/22 2215 UNVr Acetaminophen 02/23 2216 (Percocet) Departure Departure Disposition: HOME OR SELF CARE Condition: Stable Clinical Impression Primary Impression: Foot pain, right Referrals: SAMUEL CARDENAS,RUI LYNN MD,DORA Simons (PCP/Family) Additional Instructions: FOLLOW UP WITH DR. BAKER RETURN FOR ANY CONCERNS Departure Forms: Customer Survey General Discharge Information Prescriptions: Current Visit Scripts Oxycodone HCl/Acetaminophen (Percocet 5-325 MG Tablet) 1-2 TAB PO Q6P PRN PAIN #20 TAB
[2017-02-22] MEDS ORDERED: PERCOCET 5-3251 EACH PO (22:14)
== END 2017-02-22 22:27 ==
LOC: ERH 21:30
DX: M79.671 Pain in right foot (principal)

== ENCOUNTER → 2017-03-03 | Day surgery (SDC) | payer MEDICARE, OTHER ==
--- NOTE | 2017-02-28 15:14 | History & Physical Pre-Op ---
General Information and HPI History of Present Illness: Mendoza is a 47-year-old diabetic with peripheral neuropathy and a history of right foot osteomyelitis. The patient is status post partial fifth ray resection with an unfortunate recurrences of osteomyelitis involving the second metatarsophalangeal joint. Of note, the patient has been noncompliant both with his negative pressure wound therapy and hyperbaric oxygen therapy. Patient will now require revision and reapplication of his wound VAC to foot. Allergies/Medications Allergies: Coded Allergies: No Known Allergies (12/16/16) Home Med list Atorvastatin Calcium 20 MG TABLET 1 TAB PO AT BEDTIME CHOLESTEROL Insulin Detemir (Levemir) 100 UNIT/ML VIAL 20 UNITS SC BID DIABETES Insulin Lispro (Humalog Kwikpen U-100) 100 UNIT/ML INSULN.PEN 0 SC TID DM BEFORE MEALS Blood Insulin Sugar Units <80 0 81-150 8 151-200 10 201-250 12 251-300 14 301-350 16 351-400 18 >400 18 & Call Doctor AT BEDTIME Blood Insulin Sugar Units <80 0 81-100 0 101-200 0 201-250 0 251-300 3 301-350 4 351-400 5 >400 Call Doctor Levothyroxine Sodium (Synthroid) 100 MCG TABLET 1 TAB PO DAILY HYPOTHYROIDISM (Reported) Lisinopril (Prinivil) 5 MG TABLET 1 TAB PO DAILY HTN (Reported) Metformin HCl 500 MG TABLET 1 TAB PO BID DIABETES Oxycodone HCl 5 MG CAPSULE 1 CAP PO Q6P CELLULITIS Oxycodone HCl/Acetaminophen (Percocet 5-325 MG Tablet) 5 MG-325 MG TABLET 1-2 TAB PO TID PRN pain twelve... [id number] Oxycodone HCl/Acetaminophen (Percocet 5-325 MG Tablet) 5 MG-325 MG TABLET 1 TAB PO 4XDP PRN PAIN SIX...[id number] Oxycodone HCl/Acetaminophen (Percocet 5-325 MG Tablet) 5 MG-325 MG TABLET 1-2 TAB PO Q6P PRN PAIN Pregabalin (Lyrica) 150 MG CAPSULE 1 CAP PO BID NERVE DAMAGE (Reported) Vancomycin/0.9 % Sod Chloride (Vanco 1.5 Gm/250 Ml-0.9% NaCl) 1.5 GRAM/250 ML PLAST..BAG 1.5 GM IV Q12 OSTEOMYELITIS LAST DAY OF ABX 02/17/17 Past History Medical History Neurological: peripheral neuropathy EENT: diabetic retinopathy Cardiovascular: NONE Respiratory: NONE Gastrointestinal: NONE Hepatic: NONE Renal: nephrolithiasis Musculoskeletal: NONE Psychiatric: NONE Endocrine: diabetes, hypothyroidism History of MRSA: No History of VRE: No History of CDIFF: No Tetanus Vaccine: 12/17/16 Surgical History Pertinent Surgical History: non-contributory Past Family/Social History Functional Ability ADLs Independent: dressing, eating, toileting, bathing. Ambulation: independent IADLs Independent: shopping, housework, finances, food prep, telephone, transportation , medication admin. Review of Systems Review of Systems: Unremarkable except for that noted in history of present illness Exam & Diagnostic Data Physical Exam: Gomez grade 3 ulceration noted at the distal medial right foot. There is a necrotic wound bed with probing to the second metatarsophalangeal joint. Proximally, the wound bed is a mix of granular and fibrotic tissue with an overlying superficial layer of slough. Minimal serous drainage identified. Minimal erythema noted about the periwound area. Assessment/Plan Assessment/Plan: Right foot osteomyelitis. A lengthy discussion reviewing both surgical and conservative options was held the patient at bedside and the patient elects to go forward with surgery despite the risks. As Ranked By This Provider Problem List: 1. Osteomyelitis of right foot Attending MD Review Statement Attending Statement Attending MD Statement: examined this patient
[~2017-03-03] VITALS: Ht 180.3 cm; Wt 108.0 kg
--- NOTE | 2017-03-03 11:36 | Operative Report ---
Operative/Inv Procedure Report Surgery Date: 03/03/17 Name of Procedure: 1 open incision and drainage deep to the D fashion with exposure of the flexor and extensor tendon and tendon sheath multiple sites right foot 2 open partial fourth ray resection right foot 3 intraoperative administration of ankle block anesthesia 4 intraoperative application of negative pressure wound therapy 5 excisional debridement Pre-Operative Diagnosis: 1 open necrotic wound right foot 2 osteomyelitis right foot 3 diabetic peripheral neuropathy Post-Operative Diagnosis: The same Estimated Blood Loss: less than 50ml Surgeon/Principal Product Manager: RUI BAKER DPM Anesthesia: moderate sedation, block Operative/Procedure Note Note: After obtaining informed consent the patient was brought to the operating room and placed on the operating table in the supine position. The patient isn't securely fastened to the operating table utilizing safety belt. After administration of IV sedation, 10 mL of 0.5% Marcaine plain was infiltrated about the patient's right ankle. The right foot and ankle then scrubbed prepped and draped in usual aseptic manner. Attention directed the right foot, where a large full-thickness necrotic was identified. A 15 blade was utilized sharply revised skin margins. Dissection was then carried down deep to the D fashion with exposure of the extensor and flexor tendon and tendon sheath multiple sites , both proximally and distally. All necrotic nonviable infected tissue sharply evacuated from the wound bed. The dissection was then extended proximally to the level of the distal fourth metatarsal shaft. The periosteum was incised reflected a sagittal bone saw was utilized performed through and through osteotomy. The distal osseous segment was freed and passed from the operative field. Specimen was sent for both microbiologic and pathologic inspection. The open wound was then irrigated with 3 L of normal sterile saline infusion 50,000 units of bacitracin. Following this, the foot was redraped and surgeon's top gloves were changed clean gloves. Any bleeding vessels identified were cauterized or ligated as encountered. The open wound was then dressed with negative pressure wound therapy followed by Kerlix and an Brian wrap. The patient was noted to tolerate both procedure and anesthesia well and the patient was transported from the operating room to recovery with vital signs stable.
== END ==
LOC: STS 05:01
DX: E11.621 Type 2 diabetes mellitus with foot ulcer (principal); L97.514 Non-pressure chronic ulcer of other part of right foot with necrosis of bone; E11.42 Type 2 diabetes mellitus with diabetic polyneuropathy; E11.319 Type 2 diabetes mellitus with unspecified diabetic retinopathy without macular edema; Z79.4 Long term (current) use of insulin; M86.9 Osteomyelitis, unspecified; Z22.322 Carrier or suspected carrier of Methicillin resistant Staphylococcus aureus; Z86.19 Personal history of other infectious and parasitic diseases; E03.9 Hypothyroidism, unspecified; Z89.421 Acquired absence of other right toe(s)
CPT/HCPCS: 87070; 87075; 88305; J1642; J2001; J2250; J2405

== ENCOUNTER 2018-01-05 14:10 | Inpatient (IN) | payer MEDICARE, OTHER ==
[~2018-01-05] VITALS: Ht 180.3 cm; Wt 108.2 kg
--- NOTE | 2018-01-05 15:57 | RADIOLOGY REPORT ---
EXAMINATION: XR FOOT, RIGHT CLINICAL INFORMATION: Right foot puncture wound COMPARISON: 03/23/2017 TECHNIQUE: AP, lateral, and oblique views of the right foot. FINDINGS: Patient is status post trans-mid metatarsal amputation through the fourth and fifth digits. Articular alignment throughout the foot is preserved. No evidence of acute fracture. There is suggestion of a focus of soft tissue gas along the distal lateral aspect of the foot, with possible punctate foreign body densities in the plantar soft tissues as seen on the lateral view. No definite acute osseous erosion is seen. There are redemonstrated degenerative changes throughout the tarsal articulations. Posterior and plantar calcaneal spurring is present. Vascular calcification is noted. IMPRESSION: Suggestion of a focus of soft tissue gas along the distal lateral aspect of the foot, with possible punctate foreign body densities in the plantar soft tissues. No acute osseous findings identified. Redemonstrated post surgical changes of amputations through the fourth and fifth metatarsals.
[2018-01-05 18:41] LABS: ABSOLUTE BASOPHIL COUNT 0 /CUMM (0.0-0.2); ABSOLUTE EOSINOPHIL COUNT 0.1 /CUMM (0.0-0.7); ABSOLUTE GRANULOCYTE CT 5.2 /CUMM (1.4-6.5); ABSOLUTE LYMPH COUNT 1.7 /CUMM (1.2-3.4); ABSOLUTE MONOCYTE COUNT 0.3 /CUMM (0.10-0.60); BASOPHIL % 0.5 % (0.0-2.0); EOSINOPHIL % 1.5 % (0-5); GRANULOCYTE % 70.5 % (42.2-75.2); HEMATOCRIT 42.9 % (42-52); MEAN CORPUSCULAR HGB 31.1 PG (27.0-31.0); MEAN CORPUSCULAR HGB CONC 34.5 G/DL (33.0-37.0); MEAN PLATELET VOLUME 10.2 FL (7.4-10.4); PLATELET COUNT 211 /CUMM (130-400); RBC DISTRIBUTION WIDTH 13.8 % (11.5-14.5); RED BLOOD CELL CT 4.76 /CUMM (4.70-6.10); WHITE BLOOD CELL COUNT 7.4 /CUMM (4.8-10.8)
--- NOTE | 2018-01-05 20:17 | ED ANKLE/FOOT INJURY COMPLAINT ---
History of Present Illness General Chief Complaint: Plantar Puncture Wound Stated Complaint: RT FOOT WOUND Source: patient Exam Limitations: no limitations Vital Signs & Intake/Output Vital Signs & Intake/Output Vital Signs Date Time Temp Pulse Resp B/P B/P Pulse O2 O2 Flow FiO2 Mean Ox Delivery Rate 01/05 2201 98.1 81 20 126/78 98 Room Air 01/052 98.3 84 16 120/71 98 Room Air 01/05 1822 Room Air 01/05 1457 97.7 86 18 130/82 97 Room Air Allergies Coded Allergies: No Known Allergies (12/16/16) Reconcile Medications Atorvastatin Calcium 20 MG TABLET 1 TAB PO AT BEDTIME CHOLESTEROL Insulin Detemir (Levemir) 100 UNIT/ML VIAL 20 UNITS SC BID DIABETES Insulin Lispro (Humalog Kwikpen U-100) 100 UNIT/ML INSULN.PEN 0 SC TID DM BEFORE MEALS Blood Insulin Sugar Units <80 0 81-150 8 151-200 10 201-250 12 251-300 14 301-350 16 351-400 18 >400 18 & Call Doctor AT BEDTIME Blood Insulin Sugar Units <80 0 81-100 0 101-200 0 201-250 0 251-300 3 301-350 4 351-400 5 >400 Call Doctor Levothyroxine Sodium (Synthroid) 100 MCG TABLET 1 TAB PO DAILY HYPOTHYROIDISM (Reported) Lisinopril (Prinivil) 5 MG TABLET 1 TAB PO DAILY HTN (Reported) Metformin HCl 500 MG TABLET 1 TAB PO BID DIABETES Oxycodone HCl 5 MG CAPSULE 1 CAP PO Q6P CELLULITIS Oxycodone HCl/Acetaminophen (Percocet 5-325 MG Tablet) 5 MG-325 MG TABLET 1-2 TAB PO TID PRN pain twelve... [id number] Oxycodone HCl/Acetaminophen (Percocet 5-325 MG Tablet) 5 MG-325 MG TABLET 1 TAB PO 4XDP PRN PAIN SIX...[id number] Oxycodone HCl/Acetaminophen (Percocet 5-325 MG Tablet) 5 MG-325 MG TABLET 1-2 TAB PO Q6P PRN PAIN Pregabalin (Lyrica) 150 MG CAPSULE 1 CAP PO BID NERVE DAMAGE (Reported) Vancomycin/0.9 % Sod Chloride (Vanco 1.5 Gm/250 Ml-0.9% NaCl) 1.5 GRAM/250 ML PLAST..BAG 1.5 GM IV Q12 OSTEOMYELITIS LAST DAY OF ABX 02/17/17 Triage Note: PT STATES HE HAS A HOLE UNDER HIS RIGHT FOOT. PT STATES IT HAS BEEN LIKE THIS FOR TWO WEEKS. PT C/O FOUL ODOR COMING FROM OPEN AREA. PT HAS DM Triage Nurses Notes Reviewed? yes Duration: week(s): (2), constant, continues in ED, getting worse Timing: single episode today Severity: moderate, severe Severity Numbers: 8 Pain/Injury Location: Right: Foot. Method of Injury: unknown No Modifying Factors: none Associated Symptoms: swelling, redness HPI: 47-year-old male past medical history of diabetes since her evaluation of a painful lesion on his right foot. Patient states that this has been present for the past 2 weeks. He states that shortly before he first noticed this he had been walking barefoot. He does not report stepping on something there is no known trauma. He states that for the past 2 weeks is gradually become deeper more swollen and more painful. He reports that there is now some discharge From the Area Making It Difficult for Him to Walk. No Fevers No Numbness or Tingling. He Had a Similar Situation on the Foot Several Years Ago That Required Amputation of the fourth and fifth digits. No chest pain or shortness of breath no other associated symptoms. (Lázaro Kelly) Past History Travel History Traveled to [place] past 21 day No Medical History Any Pertinent Medical History? see below for history Neurological: peripheral neuropathy EENT: diabetic retinopathy Cardiovascular: NONE Respiratory: NONE Gastrointestinal: NONE Hepatic: NONE Renal: nephrolithiasis Musculoskeletal: NONE Psychiatric: NONE Endocrine: diabetes, hypothyroidism History of MRSA: No History of VRE: No History of CDIFF: No Tetanus Vaccine: 12/17/16 Surgical History Surgical History: non-contributory Psychosocial History Who do you live with Spouse What is your primary language Icelandic Tobacco Use: Never used ETOH Use: denies use Illicit Drug Use: denies illicit drug use Family History Hx Contributory? No (Lázaro Kelly) Review of Systems Review of Systems Constitutional: Reports: no symptoms. EENTM: Reports: no symptoms. Respiratory: Reports: no symptoms. Cardiovascular: Reports: no symptoms. GI: Reports: no symptoms. Genitourinary: Reports: no symptoms. Musculoskeletal: Reports: see HPI, joint pain. Skin: Reports: see HPI, lesions. Neurological/Psychological: Reports: no symptoms. Hematologic/Endocrine: Reports: no symptoms. Immunologic/Allergic: Reports: no symptoms. All Other Systems: Reviewed and Negative (Lázaro Kelly) Physical Exam Physical Exam General Appearance: well developed/nourished, no apparent distress, alert, awake Head: atraumatic, normal appearance Eyes: Bilateral: normal appearance, PERRL, EOMI. Ears, Nose, Throat: normal pharynx, normal ENT inspection, hearing grossly normal Neck: normal inspection, supple, full range of motion Cardiovascular/Respiratory: normal breath sounds, normal peripheral pulses, regular rate/rhythm, no respiratory distress Back: normal inspection, normal range of motion, no vertebral tenderness Leg/Knee/Thigh Left: normal range of motion, normal inspection Leg/Knee/Thigh Right: normal range of motion, normal inspection Ankle Left: normal inspection, normal range of motion Ankle Right: normal inspection, normal range of motion Foot Left: normal inspection, normal range of motion Foot Right: there is a 5 cm diameter ulceration on the plantar aspect of the foot near the third and second digits. There is a central area puncture wound with some purulent discharge. The area is mildly tender to palpation no focal fluctuant areas. There is some surrounding erythema. No visible subcutaneous or muscle tissue neurovascular supply is intact foot Neuro/Vascular: normal motor function, normal sensation Tendon: normal tendon function, tendon visualized Psychiatric: awake, alert, oriented x 3 Skin: intact, normal color, warm/dry (Lázaro Kelly) Progress Differential Diagnosis: arterial insufficiency, cellulitis, gout, dislocation, sprain, contusion, compartmental syndrome, diabetic foot ulcer, and peripheral vascular disease, cellulitis Plan of Care: Orders Procedure Date/time Status Heart Healthy Diet 01/06 B Active Patient Data 01/05 2322 Active LACTIC ACID 01/05 2121 Complete Admit to inpatient 01/05 2113 Active Vital Signs 01/05 2113 Active GLYCOSYLATED HGB 01/05 2113 Active Code Status 01/05 2113 Active BLOOD CULTURE 01/05 1821 Active URINALYSIS 01/05 1821 Complete TROPONIN LEVEL 01/05 1821 Complete LACTIC ACID 01/05 1821 Complete WESTERGREN SED RATE 01/05 1821 Complete C-REACTIVE PROTEIN 01/05 1821 Complete COMPREHENSIVE METABOLIC PANEL 01/05 1821 Complete CBC WITHOUT DIFFERENTIAL 01/05 1821 Complete EKG 01/05 1821 Active Nursing Misc 01/05 UNK Active Activity/Ambulation 01/05 K Active MRI-RT FOOT WITH RADHA 01/05 K Active Laboratory Tests 01/05/18 2155: Hemoglobin A1c Pending 01/05/18 2030: Lactic Acid 1.1 01/05/181924: Urine Color YEL, Urine Clarity CLEAR, Urine pH 6.5, Ur Specific [place] 1.010, Urine Protein NEG, Urine Ketones NEG, Urine Nitrite NEG, Urine Bilirubin NEG, Urine Urobilinogen 1.0, Ur Leukocyte Esterase NEG, Ur Microscopic EXAM NOT REQUIRED, Urine Hemoglobin NEG, Urine Glucose >=1000 H 01/05/18 182: Anion Gap 16, Estimated GFR > 60, BUN/Creatinine Ratio 22.0, Glucose 543 *H, Lactic Acid 2.7 H, Calcium 9.3, Total Bilirubin 0.9, AST 30, ALT 35, Alkaline Phosphatase 103, Troponin I < 0.01, C-Reactive Prot, Quant 2.0 H, Total Protein 8.2, Albumin 4.4, Globulin 3.8, Albumin/Globulin Ratio 1.2, CBC w Diff NO MAN DIFF REQ, RBC 4.76, MCV 90.0, MCH 31.1 H, MCHC 34.5, RDW 13.8, MPV 10.2, Gran % 70.5, Lymphocytes % 23.0, Monocytes % 4.5, Eosinophils % 1.5, Basophils % 0.5, Absolute Granulocytes 5.2, Absolute Lymphocytes 1.7, Absolute Monocytes 0.3, Absolute Eosinophils 0.1, Absolute Basophils 0, ESR Westergren 37 H Microbiology 01/05 1903 BLOOD: Blood Culture - RECD 01/05 1845 BLOOD: Blood Culture - RECD Patient seen and evaluated. He has a diabetic foot ulcer. X-ray suggests some subcutaneous air in the area of the wound. Spoke with Dr. Gandhi from podiatry who will have his partner come and consult. Labs show an elevated blood sugar of 560. Patient was medicated with 5 units IV insulin and 2 L of normal saline. Patient has a normal anion gap lactic acid of 2.7. Patient was seen by podiatry they recommend admission for MRI to rule out osteomyelitis versus abscess. They recommend holding antibiotics until after MRI. Case discussed with Dr. Kinney he agrees patient will be admitted for podiatry consult, MRI, vascular consult, IV antibiotics, serial labs, IV fluids, endocrine consult, medication adjustment/insulin management Diagnostic Imaging: Viewed by Me: Radiology Read. Discussed w/RAD: Radiology Read. Radiology Impression: PATIENT: ISHMAEL STUART PRESENT AGE: 47 PATIENT ACCOUNT NO: [id number] : 70 LOCATION: [facility] ORDERING PHYSICIAN: Ian JANSEN SERVICE DATE: 01/05/18-1448 EXAM TYPE: RAD - XRY -FOOT COMPLETE, R EXAMINATION: XR FOOT, RIGHT CLINICAL INFORMATION: Right foot puncture wound COMPARISON: 03/23/2017 TECHNIQUE: AP, lateral, and oblique views of the right foot. FINDINGS: Patient is status post trans-mid metatarsal amputation through the fourth and fifth digits. Articular alignment throughout the foot is preserved. No evidence of acute fracture. There is suggestion of a focus of soft tissue gas along the distal lateral aspect of the foot, with possible punctate foreign body densities in the plantar soft tissues as seen on the lateral view. No definite acute osseous erosion is seen. There are redemonstrated degenerative changes throughout the tarsal articulations. Posterior and plantar calcaneal spurring is present. Vascular calcification is noted. IMPRESSION: Suggestion of a focus of soft tissue gas along the distal lateral aspect of the foot, with possible punctate foreign body densities in the plantar soft tissues. No acute osseous findings identified. Redemonstrated post surgical changes of amputations through the fourth and fifth metatarsals. DICTATED BY: Alexis Manzano MD DATE/TIME DICTATED:01/05/181545 FROTHING MACHINE OPERATOR:NOAM DATE/TIME TRANSCRIBED:01/05/181545 CONFIDENTIAL, DO NOT COPY WITHOUT APPROPRIATE AUTHORIZATION., PATIENT: ISHMAEL STUART PRESENT AGE: 47 PATIENT ACCOUNT NO: [id number] : 70 LOCATION: [facility] ORDERING PHYSICIAN: Elver Magdaleno DPM SERVICE DATE: 01/05/18- EXAM TYPE: US - US-DUPLEX SCAN LOWER EXT ARTER EXAMINATION: US DUPLEX LOWER EXTREMITY ARTERY/GRAFT LIMITED, RIGHT CLINICAL INFORMATION: PAD. Infection right foot. COMPARISON: 01/19/2017. TECHNIQUE: Real-time ultrasound and Doppler techniques (integrating B-mode 2-D vascular images, Doppler spectral analysis and color flow Doppler imaging) were utilized to interrogate the lower extremities. FINDINGS: Common femoral artery: 127 cm/sec; triphasic waveform Superficial femoral artery proximal: 84 cm/sec; triphasic waveform Superficial femoral artery mid portion: 121 cm/sec; triphasic waveform Superficial femoral artery distal: 127 cm/sec; triphasic waveform Profunda artery: 90 cm/sec; triphasic waveform Popliteal artery: 69 cm/sec; monophasic waveform Posterior tibial artery: 50 cm/sec; monophasic waveform Anterior tibial artery: 84 cm/sec; monophasic waveform Dorsalis pedis artery: 25 cm/sec; monophasic waveform IMPRESSION: Monophasic waveforms in the distal popliteal artery, posterior tibial artery, anterior tibial artery, and dorsalis pedis in the right lower extremity consistent with peripheral arterial disease. Findings similar to previous study. DICTATED BY: Kit Means MD DATE/TIME DICTATED:01/05/182203 FROTHING MACHINE OPERATOR:NOAM DATE/TIME TRANSCRIBED:01/05/182203 CONFIDENTIAL, DO NOT COPY WITHOUT APPROPRIATE AUTHORIZATION., PATIENT: ISHMAEL STUART PRESENT AGE: 47 PATIENT ACCOUNT NO: [id number] : 70 LOCATION: [facility] ORDERING PHYSICIAN: Lázaro JANSEN SERVICE DATE: EXAM TYPE: US - US-DUPLEX VENOUS EXTREM UNI EXAMINATION: US TRIPLEX LOWER EXTREMITY, RIGHT CLINICAL INFORMATION: Edema, swelling. COMPARISON: None TECHNIQUE: Color-flow triplex imaging with spectral analysis and compression Doppler were performed on the lower extremity. FINDINGS: Respiratory variation, normal compression and augmented flow are noted throughout the lower extremity. The visualized common femoral vein, superficial femoral vein, profunda femoral vein, popliteal vein and midcalf peroneal and posterior tibial venous segments show no evidence of deep venous thrombosis. There is no Hernandez's cyst. IMPRESSION : Normal triplex scan without evidence of deep venous thrombosis involving the lower extremity. DICTATED BY: Noe Smyth MD DATE/TIME DICTATED:01/05/182155 FROTHING MACHINE OPERATOR:FARIAS DATE/TIME TRANSCRIBED:01/05/182155 CONFIDENTIAL, DO NOT COPY WITHOUT APPROPRIATE AUTHORIZATION. <Electronically signed in Other Vendor System> SIGNED BY: Noe Smyth MD 01/05/182199 (Rip JANSEN,Lázaro) Departure Departure Disposition: STILL A PATIENT Condition: Stable Clinical Impression Primary Impression: Diabetic foot ulcer Qualifiers: Diabetic foot ulcer location: other Diabetes mellitus type: type 2 Laterality: right Non-pressure ulcer stage: limited to breakdown of skin Qualified Codes: E11.621 - Type 2 diabetes mellitus with foot ulcer; L97.511 - Non-pressure chronic ulcer of other part of right foot limited to breakdown of skin Referrals: Ishmael Moore MD (PCP/Family) Departure Forms: Customer Survey General Discharge Information Admission Note Spoke With: Angelica Romero MD Documentation of Exam: Documentation of any treatments & extenuating circumstances including Concerns Regarding Discharge (functional status, medication knowledge or non-compliance, living conditions, etc.) that warrant an admission rather than observation: [ podiatry consult, MRI, vascular consult, IV antibiotics, serial labs, IV fluids, endocrine consult, medication adjustment/insulin management] (Lázaro Kelly) PA/WELFARE DIRECTOR Co-Sign Statement Statement: ED Attending supervision documentation- [x I saw and evaluated the patient. I have also reviewed all the pertinent lab results and diagnostic results. I agree with the findings and the plan of care as documented in the PA's/WELFARE DIRECTOR's documentation. [] I have reviewed the ED Record and agree with the PA's/WELFARE DIRECTOR's documentation. [] Additions or exceptions (if any) to the PAs/WELFARE DIRECTOR's note and plan are summarized below: [] 37-year-old man with a right foot diabetic foot ulceration. He was seen by podiatry. Concern for osteomyelitis was raised. (Brannon Kinney DO.)
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
--- NOTE | 2018-01-05 22:00 | ULTRASOUND REPORT ---
EXAMINATION: US TRIPLEX LOWER EXTREMITY, RIGHT CLINICAL INFORMATION: Edema, swelling. COMPARISON: None TECHNIQUE: Color-flow triplex imaging with spectral analysis and compression Doppler were performed on the lower extremity. FINDINGS: Respiratory variation, normal compression and augmented flow are noted throughout the lower extremity. The visualized common femoral vein, superficial femoral vein, profunda femoral vein, popliteal vein and midcalf peroneal and posterior tibial venous segments show no evidence of deep venous thrombosis. There is no Hernandez's cyst. IMPRESSION: Normal triplex scan without evidence of deep venous thrombosis involving the lower extremity.
--- NOTE | 2018-01-05 22:13 | History & Physical ---
Jonathon Suresh 01/05/18 2212: General Information and HPI Source of Information: patient Exam Limitations: no limitations History of Present Illness: Mr. Dent is a 47 yo m with a PMH significant for right foot osteomyelitis positive for MRSA, hypothyroidism, peripheral neuropathy, diabetic retinopathy s /p laser photocoagulation, IDDM, HTN, chronic back pain after an occupational injury who presents to the ED with right plantar open wounds. Today his daughter who is an RN noticed pus from his right foot wound with increasing erythema. Patient reports about 2-1/2 weeks ago he had a flat tire and had to walk a total of a mild to have his car fixed. He thinks at some point during walking he ruptured his right plantar blister. He reports he normally wears slippers and can't wear sneakers because of discomfort. In the past he recalls having found a rock, thumbtack, nail pierced in his foot without noticing or sensation. He reports medication compliance but sometimes forget if he took his medication and takes extra doses. Upon checking his finger stick glucose he has noticed hypoglycemia most likely due to overmedication. He also reports chronic right eye double vision Allergies/Medications Allergies: Coded Allergies: No Known Allergies (12/16/16) Home Med list Atorvastatin Calcium 20 MG TABLET 1 TAB PO AT BEDTIME CHOLESTEROL Insulin Detemir (Levemir) 100 UNIT/ML VIAL 20 UNITS SC BID DIABETES Insulin Lispro (Humalog Kwikpen U-100) 100 UNIT/ML INSULN.PEN 0 SC TID DM BEFORE MEALS Blood Insulin Sugar Units <80 0 81-150 8 151-200 10 201-250 12 251-300 14 301-350 16 351-400 18 >400 18 & Call Doctor AT BEDTIME Blood Insulin Sugar Units <80 0 81-100 0 101-200 0 201-250 0 251-300 3 301-350 4 351-400 5 >400 Call Doctor Levothyroxine Sodium (Synthroid) 100 MCG TABLET 1 TAB PO DAILY HYPOTHYROIDISM (Reported) Lisinopril (Prinivil) 5 MG TABLET 1 TAB PO DAILY HTN (Reported) Metformin HCl 500 MG TABLET 1 TAB PO BID DIABETES Oxycodone HCl 5 MG CAPSULE 1 CAP PO Q6P CELLULITIS Oxycodone HCl/Acetaminophen (Percocet 5-325 MG Tablet) 5 MG-325 MG TABLET 1-2 TAB PO TID PRN pain twelve... [id number] Oxycodone HCl/Acetaminophen (Percocet 5-325 MG Tablet) 5 MG-325 MG TABLET 1 TAB PO 4XDP PRN PAIN SIX...[id number] Oxycodone HCl/Acetaminophen (Percocet 5-325 MG Tablet) 5 MG-325 MG TABLET 1-2 TAB PO Q6P PRN PAIN Pregabalin (Lyrica) 150 MG CAPSULE 1 CAP PO BID NERVE DAMAGE (Reported) Vancomycin/0.9 % Sod Chloride (Vanco 1.5 Gm/250 Ml-0.9% NaCl) 1.5 GRAM/250 ML PLAST..BAG 1.5 GM IV Q12 OSTEOMYELITIS LAST DAY OF ABX 02/17/17 Past History Travel History Traveled to [place] past 21 day No Medical History Neurological: peripheral neuropathy EENT: diabetic retinopathy Cardiovascular: NONE Respiratory: NONE Gastrointestinal: NONE Hepatic: NONE Renal: nephrolithiasis Musculoskeletal: NONE Psychiatric: NONE Endocrine: diabetes, hypothyroidism History of MRSA: No History of VRE: No History of CDIFF: No Tetanus Vaccine: 12/17/16 Surgical History Surgical History: revascularization right lower extremity partial fourth and fifth ray amputations, right foot Past Family/Social History Psychosocial History ETOH Use: denies use Illicit Drug Use: denies illicit drug use Functional Ability ADLs Independent: dressing, eating, toileting, bathing. Ambulation: independent IADLs Independent: shopping, housework, finances, food prep, telephone, transportation , medication admin. Review of Systems Review of Systems Constitutional: Reports: see HPI. Exam & Diagnostic Data Last 24 Hrs of Vital Signs/I&O Vital Signs Date Time Temp Pulse Resp B/P B/P Pulse O2 O2 Flow FiO2 Mean Ox Delivery Rate 01/06 0632 97.7 75 18 123/71 97 Room Air 01/06 0150 98.2 78 20 133/84 98 Room Air 01/05 2201 98.1 81 20 126/78 98 Room Air 01/05 1952 98.3 84 16 120/71 98 Room Air 01/05 1822 Room Air 01/05 1457 97.7 86 18 130/82 97 Room Air Intake & Output 01/06 0800 01/06 0000 01/05 1600 Intake Total 240 Output Total Balance 240 Intake, Oral 240 Patient 245 lb Weight Weight Reported by Patient Measurement Method Physical Exam General Appearance Alert, Oriented X3, Cooperative, No Acute Distress Cardiovascular Regular Rate, Normal S1, Normal S2, No Murmurs Lungs Clear to Auscultation, Normal Air Movement Abdomen Normal Bowel Sounds, Soft, No Tenderness Extremities R foot superficial ulcer with minimal yellowish drainage Last 24 Hrs of Labs/Pelon: Laboratory Tests 01/05/182154: Hemoglobin A1c Pending 01/05/18 2030: Lactic Acid 1.1 01/05/18 192: Urine Color YEL, Urine Clarity CLEAR, Urine pH 6.5, Ur Specific [place] 1.010, Urine Protein NEG, Urine Ketones NEG, Urine Nitrite NEG, Urine Bilirubin NEG, Urine Urobilinogen 1.0, Ur Leukocyte Esterase NEG, Ur Microscopic EXAM NOT REQUIRED, Urine Hemoglobin NEG, Urine Glucose >=1000 H 01/05/18 182: Anion Gap 16, Estimated GFR > 60, BUN/Creatinine Ratio 22.0, Glucose 543 *H, Lactic Acid 2.7 H, Calcium 9.3, Total Bilirubin 0.9, AST 30, ALT 35, Alkaline Phosphatase 103, Troponin I < 0.01, C-Reactive Prot, Quant 2.0 H, Total Protein 8.2, Albumin 4.4, Globulin 3.8, Albumin/Globulin Ratio 1.2, CBC w Diff NO MAN DIFF REQ, RBC 4.76, MCV 90.0, MCH 31.1 H, MCHC 34.5, RDW 13.8, MPV 10.2, Gran % 70.5, Lymphocytes % 23.0, Monocytes % 4.5, Eosinophils % 1.5, Basophils % 0.5, Absolute Granulocytes 5.2, Absolute Lymphocytes 1.7, Absolute Monocytes 0.3, Absolute Eosinophils 0.1, Absolute Basophils 0, ESR Westergren 37 H Microbiology 01/05 1903 BLOOD: Blood Culture - RECD 01/05 1845 BLOOD: Blood Culture - RECD Assessment/Plan Assessment: Mr. Dent is a 47 yo m with a PMH significant for right foot osteomyelitis positive for MRSA, hypothyroidism, peripheral neuropathy, diabetic retinopathy s /p laser photocoagulation, IDDM, HTN, chronic back pain after an occupational injury Problem list: Right foot plantar ulcer with possible cellulitis vs abscess s/p debridement Plan: Admit to general med for further evaluation and management Nothing by mouth at midnight Continue home meds Accu-Cheks and NovoLog sliding scale MRI of right foot Consider vascular consult if MRI results abnormal ID consult Endo consult Podiatry recommendations appreciated Diet: Diabetic DVT ppx: Code: FULL As Ranked By This Provider Problem List: 1. Diabetic foot ulcer Qualifiers Diabetic foot ulcer location: other Diabetes mellitus type: type 2 Laterality: right Non-pressure ulcer stage: limited to breakdown of skin Qualified Codes: E11.621 - Type 2 diabetes mellitus with foot ulcer; L97.511 - Non-pressure chronic ulcer of other part of right foot limited to breakdown of skin Core Measures/Misc (06/14) Acute Coronary Syndrome ACS Diagnosis: No Congestive Heart Failure Congestive Heart Failure Diagnosis No Cerebrovascular Accident CVA/TIA Diagnosis: No VTE (View Protocol) VTE Risk Factors Age>40 No Mechanical VTE Prophylaxis d/t N/A MechProphylax Ordered No VTE Pharm Prophylaxis d/t Surgical Contraindication Sepsis (View protocol) Sepsis Present: No Neva Neff 01/06/18 0601: Resident Review Statement Resident Statement: examined this patient, discussed with manager intern, agreed with manager intern Other Findings: 47-year-old gentleman, uncontrolled insulin-dependent diabetes mellitus complicated with retinopathy and peripheral neuropathy, hypothyroidism, history of right foot MRSA osteomyelitis s/p fourth and fifth partial ray amputations, peripheral arterial disease status post revascularization in the right lower extremity year for evaluation of right foot nonhealing ulcer status post traumatic puncture wound 2 weeks ago. Denies fever, chest pain, palpitations, shortness of breath, nausea, vomiting. Puncture wound was excisionally debrided by Elver Magdaleno DPM in ED. Vitals temperature 98.2, heart rate 78, rest rate 20, blood pressure 133/84, 98% on room air. Examination as above Labs CBC unremarkable, BEP sodium 134, potassium 4.7, chloride 96, bicarbonate 23, anion gap 16, BUN 11, creatinine 0.5, glucose 543, lactic acid initially 2.7 trended down to 1.1, ESR 37, CRP 2 Problem list: Possible left foot osteomyelitis Diabetes mellitus Hypothyroidism Hypertension Plan admitt to general medicine floor, vitals per protocol MRI in a.m. to further evaluate for possible underlying abscess versus osteomyelitis Will keep patient nothing by mouth for now for possible surgical intervention Continue Accu-Cheks, nothing by mouth sliding scale Will cut down his long-acting Levemir from 60 twice a day to 30 twice a day we'll hold his metformin. Patient is not sure but please confirm if he is on Jiardiance Continue levothyroxine, lisinopril and statin Follow-up hemoglobin A1c ID, vascular and Endo consult in the a.m. DVT prophylaxis Alps for now, if no surgical intervention is planned can start pharmprophylaxis Full code Angelica Romero 01/06/18 0724: Attending MD Review Statement Attending Statement Attending MD Statement: examined this patient, discuss w/resident/PA/LOCOMOTIVE PIPE FITTER, agreed w/resident/PA/LOCOMOTIVE PIPE FITTER, reviewed EMR data (avail), reviewed images, amended to note Attending Assessment/Plan: CC: Right foot ulcer PMH: DM on Insulin, HTN, hypothyroidism, diabetic neuropathy, diabetic retinopathy, PAD Patient came to ER for worsening right foot ulcer. He states that he walked for 1 mile when he had a flat tire 2 weeks back. At that time he had a blister on his feet which burst and open after the walking. He tried to clean the wound with hydrogen peroxide and alcohol and it was getting worse. He noticed increased pain, redness and family noticed there might be pus under flap of skin. He ER family did not notice any foreign body. Patient does not feel anything in feet secondary to diabetic neuropathy. Denies any fever or chills at home, no nausea vomiting otherwise complete ROS unremarkable. He did not take any antibiotics recently for this infection. Of note his diabetes is not under good control and many of his medications were recently changed including dose of insulin was increased. Metformin was discontinued and he was started on empagliflozin by HUMANITIES INSTRUCTOR (?PCP). He could not confirm all his medications from home , his will bring all medications in the morning. Vitals: Afebrile, pulse 80s, RR 18, blood pressure 130/82, saturating 97% on room air On exam: A O 3, cooperative, no acute distress, neck supple, JVD normal, no lymphadenopathy, mucosa moist, no focal neurological deficit, decreased sensation due to neuropathy on Todd LE, no dependent edema, no obvious skin rashes or inflammation CVS: S1-S2, RRR. RS: Clear to auscultate bilaterally. Abdomen: Soft, NT, ND, bowel sounds present. Right foot ulcer status post local debridement done by furniture delivery driver, clean-based ulcer 2 cm diameter, no crepitation, subcutaneous tissue exposure, peripheral pulses perfusion normal, ankle and toes ROM not restricted, wound was dressed. Right lower extremity Doppler: Normal triplex scan without evidence of deep venous thrombosis involving the lower extremity. Right foot x-ray: Suggestion of a focus of soft tissue gas along the distal lateral aspect of the foot, with possible punctate foreign body densities in the plantar soft tissues. No acute osseous findings identified. Redemonstrated post surgical changes of amputations through the fourth and fifth metatarsals. Arterial Doppler right lower extremity: Monophasic waveforms in the distal popliteal artery, posterior tibial artery, anterior tibial artery, and dorsalis pedis in the right lower extremity consistent with peripheral arterial disease. Findings similar to previous study. Assessment and plan 47-year-old male with diabetes and related complications with neuropathy and retinopathy presented in ER for right foot ulcer and worsening pain redness and possible pus discharge. Patient was seen by furniture delivery driver in the ER, locally debrided the wound. Clean-based ulcer 2 cm diameter, no crepitation, subcutaneous tissue exposure, peripheral pulses perfusion normal, ankle and toes ROM not restricted, wound was dressed. Even though x-ray mentions gas in the subcutaneous tissue, patient does not look septic, and furniture delivery driver mentioned that he was not worried about that x-ray findings. He suggested to get MRI in the morning, if the patient shows osteomyelitis then they will take to the OR in the afternoon to get cultures and then antibiotics should be started. I agree with this plan. According to patient his diabetes is not under good control and many of his medications were recently changed including dose of insulin was increased. Metformin was discontinued and he was started on empagliflozin by HUMANITIES INSTRUCTOR (?PCP). He could not confirm all his medications from home, his will bring all medications in the morning. + Diabetic foot infection + uncontrolled diabetes + Hx of HTN, hypothyroidism, diabetic neuropathy, diabetic retinopathy, PAD - admit to general medicine - Continue gentle hydration - MRI right foot with and without contrast in a.m. - No antibiotics for now - Nothing by mouth after midnight - Adequate pain control - ID consult - Endocrine consult - DVT prophylaxis - Continue Levemir 30 units twice a day and sliding scale for nothing by mouth - Confirm all the medications from home before restarting
--- NOTE | 2018-01-05 22:14 | ULTRASOUND REPORT ---
EXAMINATION: US DUPLEX LOWER EXTREMITY ARTERY/GRAFT LIMITED, RIGHT CLINICAL INFORMATION: PAD. Infection right foot. COMPARISON: 01/19/2017. TECHNIQUE: Real-time ultrasound and Doppler techniques (integrating B-mode 2-D vascular images, Doppler spectral analysis and color flow Doppler imaging) were utilized to interrogate the lower extremities. FINDINGS: Common femoral artery: 127 cm/sec; triphasic waveform Superficial femoral artery proximal: 84 cm/sec; triphasic waveform Superficial femoral artery mid portion: 121 cm/sec; triphasic waveform Superficial femoral artery distal: 127 cm/sec; triphasic waveform Profunda artery: 90 cm/sec; triphasic waveform Popliteal artery: 69 cm/sec; monophasic waveform Posterior tibial artery: 50 cm/sec; monophasic waveform Anterior tibial artery: 84 cm/sec; monophasic waveform Dorsalis pedis artery: 25 cm/sec; monophasic waveform IMPRESSION: Monophasic waveforms in the distal popliteal artery, posterior tibial artery, anterior tibial artery, and dorsalis pedis in the right lower extremity consistent with peripheral arterial disease. Findings similar to previous study.
--- NOTE | 2018-01-06 07:25 | Admission Certification ---
Admission Certification Certification Statement - As attending physician, I certify that at the time of - admission, based on clinical presentation, severity of - symptoms, need for further diagnostic testing and - therapeutic interventions, and risk of adverse outcomes - without in-hospital treatment, in my clinical assessment, - this patient requires an acute hospital stay for a minimum - of two nights or longer. I have also considered psychsocial - factors such as support system, advanced age, financial - issues, cognitive issues, and failed out-patient treatments, - past re-admission history, safety of patient, and lack of - compliance as applicable. Specific rationale supporting this admission is: Diabetic foot infection
--- NOTE | 2018-01-06 10:06 | PN- Housestaff ---
Subjective Follow-up For: R foot wounds Subjective: No acute events overnight. Patient states that he has not had fever. States that his pain is well controlled on morphine. Review of Systems Constitutional: Reports: see HPI. Objective Last 24 Hrs of Vital Signs/I&O Vital Signs Date Time Temp Pulse Resp B/P B/P Pulse O2 O2 Flow FiO2 Mean Ox Delivery Rate 01/06 1201 97.7 73 18 132/73 96 Room Air 01/06 0900 72 120/74 01/06 0632 97.7 75 18 123/71 97 Room Air 01/06 0150 98.2 78 20 133/84 98 Room Air 01/05 2201 98.1 81 20 126/78 98 Room Air 01/05 1952 98.3 84 16 120/71 98 Room Air 01/05 1822 Room Air Intake & Output 01/06 1600 01/06 0800 01/06 0000 Intake Total 600 240 Output Total Balance 600 240 Intake, IV 600 Intake, Oral 240 Patient 245 lb Weight Weight Reported by Patient Measurement Method Physical Exam General Appearance: Alert, Oriented X3, Cooperative, No Acute Distress Cardiovascular: Regular Rate, Normal S1, Normal S2 Lungs: Clear to Auscultation, Normal Air Movement Abdomen: Normal Bowel Sounds, Soft, No Tenderness Extremities: right foot covered in gauze Vascular: 2+ radial pulses Current Medications: Current Medications Sig/[place] Start time Last Medication Dose Route Stop Time Status Admin Acetaminophen 0 .STK-MED ONE 01/05 1832 DC IV Acetaminophen 1,000 MG ONCE ONE 01/05 1830 DC 01/05 N/A 1 UNIT IV 01/05 1844 1830 Atorvastatin Calcium 20 MG AT BEDTIME 01/06 2200 AC PO Dextrose/Sodium 1,000 ML Q13H 01/06 0345 AC 01/06 Chloride IV 0442 Insulin Aspart 0 Q4 01/06 0845 AC 01/06 SC 1352 Insulin Aspart 0 TIDAC 01/06 0800 CAN SC Insulin Detemir 30 UNITS BID 01/06 1000 AC 01/06 SC 0900 Insulin Human Regular 0 Q6 01/06 0600 DC 01/06 SC 0636 Insulin Human Regular 5 UNITS ONCE ONE 01/05 2100 DC 01/05 IV 01/05 2101 2152 Levothyroxine Sodium 0.1 MG DAILY AC 01/06 0700 AC 01/06 PO 0636 Lisinopril 5 MG DAILY 01/06 1000 AC 01/06 PO 0900 Morphine Sulfate 2 MG Q6P PRN 01/06 1230 AC IV Morphine Sulfate 0 .STK-MED ONE 01/06 1031 DC .ROUTE Morphine Sulfate 2 MG ONCE ONE 01/06 1000 DC 01/06 IV 01/06 1001 1030 Morphine Sulfate 0 .STK-MED ONE 01/06 0250 DC .ROUTE Morphine Sulfate 2 MG ONCE ONE 01/06 0245 DC 01/06 IV 01/06 0246 0253 Morphine Sulfate 0 .STK-MED ONE 01/05 2003 DC .ROUTE Morphine Sulfate 2 MG ONCE ONE 01/05 1945 DC 01/05 IV 01/05 Sodium Chloride 1,000 ML BOLUS ONE 01/05 1930 DC 01/05 IV 01/05 Sodium Chloride 1,000 ML BOLUS ONE 01/05 1930 DC 01/05 IV 01/05 Last 24 Hrs of Lab/Pelon Results Last 24 Hrs of Labs/Mics: Laboratory Tests 01/05/18 2155: Hemoglobin A1c 10.3 H 01/05/18 2030: Lactic Acid 1.1 01/05/18 1925: Urine Color YEL, Urine Clarity CLEAR, Urine pH 6.5, Ur Specific [place] 1.010, Urine Protein NEG, Urine Ketones NEG, Urine Nitrite NEG, Urine Bilirubin NEG, Urine Urobilinogen 1.0, Ur Leukocyte Esterase NEG, Ur Microscopic EXAM NOT REQUIRED, Urine Hemoglobin NEG, Urine Glucose >=1000 H 01/05/18 1825: Anion Gap 16, Estimated GFR > 60, BUN/Creatinine Ratio 22.0, Glucose 543 *H, Lactic Acid 2.7 H, Calcium 9.3, Total Bilirubin 0.9, AST 30, ALT 35, Alkaline Phosphatase 103, Troponin I < 0.01, C-Reactive Prot, Quant 2.0 H, Total Protein 8.2, Albumin 4.4, Globulin 3.8, Albumin/Globulin Ratio 1.2, CBC w Diff NO MAN DIFF REQ, RBC 4.76, MCV 90.0, MCH 31.1 H, MCHC 34.5, RDW 13.8, MPV 10.2, Gran % 70.5, Lymphocytes % 23.0, Monocytes % 4.5, Eosinophils % 1.5, Basophils % 0.5, Absolute Granulocytes 5.2, Absolute Lymphocytes 1.7, Absolute Monocytes 0.3, Absolute Eosinophils 0.1, Absolute Basophils 0, ESR Westergren 37 H Microbiology 01/06 1510 EXTREMITIE: Gross Specimen Examination - RECD 01/06 1510 EXTREMITIE: Gram Stain - RECD 01/05 1903 BLOOD: Blood Culture - RES 01/05 1845 BLOOD: Blood Culture - RES Assessment/Plan Assessment: Mr. Dent is a 47 yo m with a PMH significant for right foot osteomyelitis positive for MRSA, hypothyroidism, peripheral neuropathy, diabetic retinopathy s /p laser photocoagulation, IDDM, HTN, chronic back pain after an occupational injury presenting for right foot plantar ulcer with possible cellulitis vs abscess s/p debridement. Plan: -Currently in OR, follow-up postop recommendations by podiatry -Currently off antibiotics, follow-up infectious disease note -continue endocrinology recommendations for blood sugar control -Contact endocrinology for any diet changes, to change insulin regimen -anticoagulation resumption per podiatry -Blood sugars elevated at 543, hemoglobin A1c 10.3 -Lactic acid 2.7, 1.1 -CRP 2.0 -Foot x-ray shows shock tissue gas, foreign bodies. MRI negative for osteomyelitis, shows cellulitis -Venous Doppler negative, arterial Doppler reveals PVD -Consider vascular consult Diet: Diabetic Code: FULL DVT ppx: ALPS Problem List: 1. Cellulitis Pain Ratin Pain Location: foot Pain Goal: Pain 4 or less Pain Plan: morphine Tomorrow's Labs & Rationales: cbc bep
--- NOTE | 2018-01-06 11:11 | Cons- Endocrinology ---
General Information and HPI Consulting Request Date of Consult: 01/06/18 Requested By: medical team Reason for Consult: management of uncontrolled diabetes Source of Information: patient, old records Exam Limitations: no limitations History of Present Illness: He was diagnosed with diabetes in his 30s. He has a strong family hx of diabetes. At home, he was on Levemir 60 units twice a day and Humalog 12 units before meals. He presented with right foot open wound. He has a hx of right foot osteomyelitis positive for MRSA, hypothyroidism, peripheral neuropathy, diabetic retinopathy s/p laser treatment. In ER his glucose was 543 on the blood work. He has been kept NPO for MRI of right foot and possible surgery later today. His repeat FSG was 317. Currently he is on D5 1/2 NS at 75 ml/hour. Allergies/Medications Allergies: Coded Allergies: No Known Allergies (12/16/16) Home Med List: Atorvastatin Calcium 20 MG TABLET 1 TAB PO AT BEDTIME CHOLESTEROL Insulin Detemir (Levemir) 100 UNIT/ML VIAL 20 UNITS SC BID DIABETES Insulin Lispro (Humalog Kwikpen U-100) 100 UNIT/ML INSULN.PEN 0 SC TID DM BEFORE MEALS Blood Insulin Sugar Units <80 0 81-150 8 151-200 10 201-250 12 251-300 14 301-350 16 351-400 18 >400 18 & Call Doctor AT BEDTIME Blood Insulin Sugar Units <80 0 81-100 0 101-200 0 201-250 0 251-300 3 301-350 4 351-400 5 >400 Call Doctor Levothyroxine Sodium (Synthroid) 100 MCG TABLET 1 TAB PO DAILY HYPOTHYROIDISM (Reported) Lisinopril (Prinivil) 5 MG TABLET 1 TAB PO DAILY HTN (Reported) Metformin HCl 500 MG TABLET 1 TAB PO BID DIABETES Oxycodone HCl 5 MG CAPSULE 1 CAP PO Q6P CELLULITIS Oxycodone HCl/Acetaminophen (Percocet 5-325 MG Tablet) 5 MG-325 MG TABLET 1-2 TAB PO TID PRN pain twelve... [id number] Oxycodone HCl/Acetaminophen (Percocet 5-325 MG Tablet) 5 MG-325 MG TABLET 1 TAB PO 4XDP PRN PAIN SIX...[id number] Oxycodone HCl/Acetaminophen (Percocet 5-325 MG Tablet) 5 MG-325 MG TABLET 1-2 TAB PO Q6P PRN PAIN Pregabalin (Lyrica) 150 MG CAPSULE 1 CAP PO BID NERVE DAMAGE (Reported) Vancomycin/0.9 % Sod Chloride (Vanco 1.5 Gm/250 Ml-0.9% NaCl) 1.5 GRAM/250 ML PLAST..BAG 1.5 GM IV Q12 OSTEOMYELITIS LAST DAY OF ABX 02/17/17 Review of Systems Review of Systems Constitutional: Reports: see HPI. Cardiovascular: Denies: chest pain. Respiratory: Denies: short of breath. GI: Denies: abdominal pain. Musculoskeletal: Reports: see HPI (right foot infection). Hematologic/Endocrine: Denies: polyuria, polydipsia. 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 Home Smoking Status: Former Smoker ETOH Use: denies use Illicit Drug Use: denies illicit drug use Functional Ability ADLs Independent: dressing, eating, toileting, bathing. Ambulation: independent IADLs Independent: shopping, housework, finances, food prep, telephone, transportation , medication admin. Exam & Diagnostic Data Last 24 Hrs of Vital Signs/I&O Vital Signs Date Time Temp Pulse Resp B/P B/P Pulse O2 O2 Flow FiO2 Mean Ox Delivery Rate 01/06 0900 72 120/74 01/06 0632 97.7 75 18 123/71 97 Room Air 01/06 0150 98.2 78 20 133/84 98 Room Air 01/05 2201 98.1 81 20 126/78 98 Room Air 01/05 1952 98.3 84 16 120/71 98 Room Air 01/05 1822 Room Air 01/05 1457 97.7 86 18 130/82 97 Room Air Intake & Output 01/06 1600 01/06 0800 01/06 0000 Intake Total 240 Output Total Balance 240 Intake, Oral 240 Patient 245 lb Weight Weight Reported by Patient Measurement Method Physical Exam General Appearance: no apparent distress Respiratory: lungs clear Cardiovascular: regular rate/rhythm Extremities: normal inspection (right foot infection) Labs/Pelon Results: Laboratory Tests 01/05 01/05 01/05 2155 2030 1925 Chemistry Hemoglobin A1c (4.2 - 5.8 %) 10.3 H Lactic Acid (0.7 - 2.1 mmol/L) 1.1 Urines Urine Color (YEL,AMB,STR) YEL Urine Clarity (CLEAR) CLEAR Urine pH (5.0 - 8.0) 6.5 Ur Specific [place] (1.001 - 1.035) 1.010 Urine Protein (NEG,<30 MG/DL) NEG Urine Ketones (NEG) NEG Urine Nitrite (NEG) NEG Urine Bilirubin (NEG) NEG Urine Urobilinogen (0.1 - 1.0 EU/dl) 1.0 Ur Leukocyte Esterase (NEG) NEG Ur Microscopic EXAM NOT REQUIRED Urine Hemoglobin (NEG) NEG Urine Glucose (N MG/DL) >=1000 H 01/05 1825 Chemistry Sodium (137 - 145 mmol/L) 134 L Potassium (3.5 - 5.1 mmol/L) 4.7 Chloride (98 - 107 mmol/L) 96 L Carbon Dioxide (22 - 30 mmol/L) 23 Anion Gap (5 - 16) 16 BUN (9 - 20 mg/dL) 11 Creatinine (0.7 - 1.2 mg/dL) 0.5 L Estimated GFR (>60 ml/min) > 60 BUN/Creatinine Ratio (7 - 25 %) 22.0 Glucose (65 - 99 mg/dL) 543 *H Lactic Acid (0.7 - 2.1 mmol/L) 2.7 H Calcium (8.4 - 10.2 mg/dL) 9.3 Total Bilirubin (0.2 - 1.3 mg/dL) 0.9 AST (17 - 59 U/L) 30 ALT (21 - 72 U/L) 35 Alkaline Phosphatase (< 127 U/L) 103 Troponin I (<0.11 ng/ml) < 0.01 C-Reactive Prot, Quant (<1.0 mg/dL) 2.0 H Total Protein (6.3 - 8.2 g/dL) 8.2 Albumin (3.5 - 5.0 g/dL) 4.4 Globulin (1.9 - 4.2 gm/dL) 3.8 Albumin/Globulin Ratio (1.1 - 2.2 %) 1.2 Hematology CBC w Diff NO MAN DIFF REQ WBC (4.8 - 10.8 /CUMM) 7.4 RBC (4.70 - 6.10 /CUMM) 4.76 Hgb (14.0 - 18.0 G/DL) 14.8 Hct (42 - 52 %) 42.9 MCV (80.0 - 94.0 FL) 90.0 MCH (27.0 - 31.0 PG) 31.1 H MCHC (33.0 - 37.0 G/DL) 34.5 RDW (11.5 - 14.5 %) 13.8 Plt Count (130 - 400 /CUMM) 211 MPV (7.4 - 10.4 FL) 10.2 Gran % (42.2 - 75.2 %) 70.5 Lymphocytes % (20.5 - 51.1 %) 23.0 Monocytes % (1.7 - 9.3 %) 4.5 Eosinophils % (0 - 5 %) 1.5 Basophils % (0.0 - 2.0 %) 0.5 Absolute Granulocytes (1.4 - 6.5 /CUMM) 5.2 Absolute Lymphocytes (1.2 - 3.4 /CUMM) 1.7 Absolute Monocytes (0.10 - 0.60 /CUMM) 0.3 Absolute Eosinophils (0.0 - 0.7 /CUMM) 0.1 Absolute Basophils (0.0 - 0.2 /CUMM) 0 ESR Westergren (0 - 10 MM) 37 H Assessment/Plan Assessment/Plan 47 y/o female who was diagnosed with diabetes in his 30s. In addition, he has had a hx of right foot osteomyelitis positive for MRSA, hypothyroidism, peripheral neuropathy, diabetic retinopathy s/p laser treatment. At home, he was on Levemir 60 units twice a day and Humalog 12 units before meals. He presented with right foot open wound. He has been kept NPO for MRI of right foot and possible surgery later today. His repeat FSG was 317. Currently he is on D5 1/2 NS at 75 ml/hour. Plan: 1. agree with Levemir 30 units twice a day; 2. stop RISS every 6 hours; 3. start Novolog coverage every 4 hours; detail see the inpatient DM order; 4. monitor FSGs. 5. please inform me if patient's nutritional status changes, then his insulin regimen will be adjusted accoringly. will follow. Inpatient Diabetes Orders Every 4 Hours: Bolus Insulin: Novolog < 80 mg/dl: no covearge 80-100 mg/dl: no coverage 101-120 mg/dl: no coverage 121-150 mg/dl: no coverage 151-200 mg/dl: 3 units 201-250 mg/dl: 5 units 251-300 mg/dl: 7 units 301-350 mg/dl: 9 units 351-400 mg/dl: 11 units > 400 mg/dl: 13 units Consult Acknowledgment - Thank you for your consult request.
--- NOTE | 2018-01-06 11:34 | PN- Att Addend ---
Attending Addendum Attending Brief Note Patient seen and examined, some pain in the right foot. 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 Patient is going for MRI. Patient is admitted with right foot ulcer with the possibility of osteomyelitis. Also had hyperglycemia. Vital Signs Date Time Temp Pulse Resp B/P B/P Pulse O2 O2 Flow FiO2 Mean Ox Delivery Rate 01/06 0900 72 120/74 01/06 0632 97.7 75 18 123/71 97 Room Air 01/06 0150 98.2 78 20 133/84 98 Room Air 01/05 2201 98.1 81 20 126/78 98 Room Air 01/05 1952 98.3 84 16 120/71 98 Room Air 01/05 1822 Room Air 01/05 1457 97.7 86 18 130/82 97 Room Air on exam; aox3, nad. cv; s1,s2, rrr resp; clear abd; soft, nt, bs+ ext; + right foot ulcer, no edema Laboratory Tests 01/05 Chemistry Hemoglobin A1c (4.2 - 5.8 %) 10.3 H Lactic Acid (0.7 - 2.1 mmol/L) 1.1 Urines Urine Color (YEL,AMB,STR) YEL Urine Clarity (CLEAR) CLEAR Urine pH (5.0 - 8.0) 6.5 Ur Specific [place] (1.001 - 1.035) 1.010 Urine Protein (NEG,<30 MG/DL) NEG Urine Ketones (NEG) NEG Urine Nitrite (NEG) NEG Urine Bilirubin (NEG) NEG Urine Urobilinogen (0.1 - 1.0 EU/dl) 1.0 Ur Leukocyte Esterase (NEG) NEG Ur Microscopic EXAM NOT REQUIRED Urine Hemoglobin (NEG) NEG Urine Glucose (N MG/DL) >=1000 H 01/05 1825 Chemistry Sodium (137 - 145 mmol/L) 134 L Potassium (3.5 - 5.1 mmol/L) 4.7 Chloride (98 - 107 mmol/L) 96 L Carbon Dioxide (22 - 30 mmol/L) 23 Anion Gap (5 - 16) 16 BUN (9 - 20 mg/dL) 11 Creatinine (0.7 - 1.2 mg/dL) 0.5 L Estimated GFR (>60 ml/min) > 60 BUN/Creatinine Ratio (7 - 25 %) 22.0 Glucose (65 - 99 mg/dL) 543 *H Lactic Acid (0.7 - 2.1 mmol/L) 2.7 H Calcium (8.4 - 10.2 mg/dL) 9.3 Total Bilirubin (0.2 - 1.3 mg/dL) 0.9 AST (17 - 59 U/L) 30 ALT (21 - 72 U/L) 35 Alkaline Phosphatase (< 127 U/L) 103 Troponin I (<0.11 ng/ml) < 0.01 C-Reactive Prot, Quant (<1.0 mg/dL) 2.0 H Total Protein (6.3 - 8.2 g/dL) 8.2 Albumin (3.5 - 5.0 g/dL) 4.4 Globulin (1.9 - 4.2 gm/dL) 3.8 Albumin/Globulin Ratio (1.1 - 2.2 %) 1.2 Hematology CBC w Diff NO MAN DIFF REQ WBC (4.8 - 10.8 /CUMM) 7.4 RBC (4.70 - 6.10 /CUMM) 4.76 Hgb (14.0 - 18.0 G/DL) 14.8 Hct (42 - 52 %) 42.9 MCV (80.0 - 94.0 FL) 90.0 MCH (27.0 - 31.0 PG) 31.1 H MCHC (33.0 - 37.0 G/DL) 34.5 RDW (11.5 - 14.5 %) 13.8 Plt Count (130 - 400 /CUMM) 211 MPV (7.4 - 10.4 FL) 10.2 Gran % (42.2 - 75.2 %) 70.5 Lymphocytes % (20.5 - 51.1 %) 23.0 Monocytes % (1.7 - 9.3 %) 4.5 Eosinophils % (0 - 5 %) 1.5 Basophils % (0.0 - 2.0 %) 0.5 Absolute Granulocytes (1.4 - 6.5 /CUMM) 5.2 Absolute Lymphocytes (1.2 - 3.4 /CUMM) 1.7 Absolute Monocytes (0.10 - 0.60 /CUMM) 0.3 Absolute Eosinophils (0.0 - 0.7 /CUMM) 0.1 Absolute Basophils (0.0 - 0.2 /CUMM) 0 ESR Westergren (0 - 10 MM) 37 H A/P: 47 y/o M with pmh sig for right foot osteomyelitis positive for MRSA, hypothyroidism, peripheral neuropathy, diabetic retinopathy s/p laser photocoagulation, IDDM, HTN, chronic back pain admitted with right foot plantar ulcer with question of osteoarthritis, hyperglycemia and uncontrolled diabetes. Arterial Doppler also consistent with peripheral artery disease. Podiatry consult has been obtained. Patient get an MRI. Infectious disease consult will be obtained. Hemoglobin A1c is more than 10 which shows that diabetes is not controlled. Patient currently on Levemir but blood glucose not controlled. We'll follow further endocrinology recommendations. Currently patient has been watched off of antibiotics. Pending MRI results, will follow- up with podiatry about any plans for debridement. DVT px: Can start Hep sq for pharmacologic DVT px.
[2018-01-06 12:01] VITALS: BP 132/73
--- NOTE | 2018-01-06 14:16 | MRI REPORT ---
EXAMINATION: MRI FOOT, RIGHT, WITHOUT AND WITH CONTRAST CLINICAL INFORMATION: 47-year-old male with history of 2-week-old plantar puncture wound. Evaluate for abscess of the second metatarsal space and osteomyelitis. COMPARISON: Radiographs of the right foot from 01/05/2018 TECHNIQUE: MR imaging of the right forefoot was performed on a high-field 1.5 Jennifer magnet using standard sequences without and with intravenous administration of 10 mL of Gadavist contrast. FINDINGS: The patient is status post remote amputations of fourth and fifth digits through the mid metatarsal shafts. Small foci of heterotopic ossification project distal to the amputated fourth metatarsal. Bones of the forefoot have well preserved fatty marrow signal intensity on the T1-weighted images. There is no evidence of osteomyelitis. No osseous erosion or periostitis. Alignment is normal at the Lisfranc, metatarsophalangeal and interphalangeal joints. There is diffuse atrophy and fatty replacement of muscles of the forefoot. Also, muscles appear edematous on fat-suppressed fluid sensitive sequences. This likely represents chronic denervation change. The visualized plantar aponeurosis is intact. No acute tendon tear or tenosynovitis. There is edema within subcutaneous tissues at the plantar and lateral aspect of the forefoot. The images acquired after contrast demonstrate a reticular pattern of enhancement of subcutaneous tissues without focal rim-enhancing fluid collection. No abscess. IMPRESSION: - Findings consistent with cellulitis in the forefoot. - No evidence of soft tissue abscess or osteomyelitis.
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
--- NOTE | 2018-01-06 16:14 | Cons- Infect Disease ---
General Information and HPI Consulting Request Date of Consult: 01/06/18 Requested By: Angelica Romero MD Reason for Consult: Rule out osteomyelitis of the right foot Source of Information: patient, old records History of Present Illness: This is a 47-year-old man with a history of diabetes, with secondary neuropathy, retinopathy and peripheral vascular disease, nephrolithiasis and hypothyroidism, status post right fifth toe amputation 1 year prior to admission for MRSA osteomyelitis, treated with a 4 week course of Vancomycin, with a right leg angiogram performed on that hospitalization, with no intervention felt necessary , followed by a right fourth toe amputation 6 weeks later, admitted on January 05 after presenting to the emergency room with an ulcer on the plantar aspect of his right foot, which he states began as a blister 2-1/2 weeks prior to admission after walking 1 mile in sandals, associated with pain, swelling, drainage and sweats. On admission he was afebrile. Laboratory data revealed a white blood cell count of 7000, ESR 37, glucose 543, BUN/creatinine 11 and 0.5, with normal liver enzymes. Urinalysis negative. X-ray of the right foot revealed a question of soft tissue gas along the distal lateral aspect of the foot with possible punctate foreign body densities in the plantar soft tissues. Doppler of the right lower extremity was negative for DVT. Arterial Doppler of the right lower extremity revealed peripheral arterial disease similar to the previous study one year prior to admission. He was followed off antibiotics and has remained afebrile overnight. He underwent an MRI of the right foot this morning, which was negative for any collection or osteomyelitis. He was taken to the OR earlier this afternoon for an I&D, with no evidence of any infection or foreign body. At present he does note some discomfort in the right foot but is otherwise without complaints. Allergies/Medications Allergies: Coded Allergies: No Known Allergies (12/16/16) Home Med List: Atorvastatin Calcium 20 MG TABLET 1 TAB PO AT BEDTIME CHOLESTEROL Insulin Detemir (Levemir) 100 UNIT/ML VIAL 20 UNITS SC BID DIABETES Insulin Lispro (Humalog Kwikpen U-100) 100 UNIT/ML INSULN.PEN 0 SC TID DM BEFORE MEALS Blood Insulin Sugar Units <80 0 81-150 8 151-200 10 201-250 12 251-300 14 301-350 16 351-400 18 >400 18 & Call Doctor AT BEDTIME Blood Insulin Sugar Units <80 0 81-100 0 101-200 0 201-250 0 251-300 3 301-350 4 351-400 5 >400 Call Doctor Levothyroxine Sodium (Synthroid) 100 MCG TABLET 1 TAB PO DAILY HYPOTHYROIDISM (Reported) Lisinopril (Prinivil) 5 MG TABLET 1 TAB PO DAILY HTN (Reported) Metformin HCl 500 MG TABLET 1 TAB PO BID DIABETES Oxycodone HCl 5 MG CAPSULE 1 CAP PO Q6P CELLULITIS Oxycodone HCl/Acetaminophen (Percocet 5-325 MG Tablet) 5 MG-325 MG TABLET 1-2 TAB PO TID PRN pain twelve... [id number] Oxycodone HCl/Acetaminophen (Percocet 5-325 MG Tablet) 5 MG-325 MG TABLET 1 TAB PO 4XDP PRN PAIN SIX...[id number] Oxycodone HCl/Acetaminophen (Percocet 5-325 MG Tablet) 5 MG-325 MG TABLET 1-2 TAB PO Q6P PRN PAIN Pregabalin (Lyrica) 150 MG CAPSULE 1 CAP PO BID NERVE DAMAGE (Reported) Vancomycin/0.9 % Sod Chloride (Vanco 1.5 Gm/250 Ml-0.9% NaCl) 1.5 GRAM/250 ML PLAST..BAG 1.5 GM IV Q12 OSTEOMYELITIS LAST DAY OF ABX 02/17/17 Past History Travel History Traveled to [place] past 21 day No Medical History Blood Transfusion Hx: No Neurological: peripheral neuropathy EENT: diabetic retinopathy Cardiovascular: NONE Respiratory: NONE Gastrointestinal: NONE Hepatic: NONE Renal: nephrolithiasis Musculoskeletal: NONE Psychiatric: NONE Endocrine: diabetes, hypothyroidism Blood Disorders: NONE Cancer(s): NONE ADMINISTRATIVE LIBRARY ASSISTANT/Reproductive: NONE History of MRSA: Yes History of VRE: No History of CDIFF: No Isolation History: Contact Tetanus Vaccine: 12/17/16 Surgical History Surgical History: revascularization right lower extremity partial fourth and fifth ray amputations, right foot Psychosocial History Where Do You Live? Home Smoking Status: Former Smoker ETOH Use: denies use Illicit Drug Use: denies illicit drug use Functional Ability ADLs Independent: dressing, eating, toileting, bathing. Ambulation: independent IADLs Independent: shopping, housework, finances, food prep, telephone, transportation , medication admin. Review of Systems Review of Systems All Other Systems: Reviewed and Negative Exam & Diagnostic Data Last 24 Hrs of Vital Signs/I&O Vital Signs Date Time Temp Pulse Resp B/P B/P Pulse O2 O2 Flow FiO2 Mean Ox Delivery Rate 01/06 1201 97.7 73 18 132/73 96 Room Air 01/06 0900 72 120/74 01/06 0632 97.7 75 18 123/71 97 Room Air 01/06 0150 98.2 78 20 133/84 98 Room Air 01/05 2201 98.1 81 20 126/78 98 Room Air 01/05 1952 98.3 84 16 120/71 98 Room Air 01/05 1822 Room Air Intake & Output 01/06 1600 01/06 0800 01/06 0000 Intake Total 600 240 Output Total Balance 600 240 Intake, IV 600 Intake, Oral 240 Patient 245 lb Weight Weight Reported by Patient Measurement Method Physical Exam Other Physical Findings: Afebrile. He is awake and alert in no acute distress. Skin reveals no rash. HEENT negative. Neck is supple with no adenopathy. Lungs are clear. Heart regular rhythm with no murmur. Abdomen is soft, nontender with positive bowel sounds. Back no CVA tenderness. Extremities right foot dressing intact; right leg with no erythema or edema. Neuro is without focality. Last 24 Hours of Lab Results: Laboratory Tests 01/05 Chemistry Hemoglobin A1c (4.2 - 5.8 %) 10.3 H Lactic Acid (0.7 - 2.1 mmol/L) 1.1 Urines Urine Color (YEL,AMB,STR) YEL Urine Clarity (CLEAR) CLEAR Urine pH (5.0 - 8.0) 6.5 Ur Specific [place] (1.001 - 1.035) 1.010 Urine Protein (NEG,<30 MG/DL) NEG Urine Ketones (NEG) NEG Urine Nitrite (NEG) NEG Urine Bilirubin (NEG) NEG Urine Urobilinogen (0.1 - 1.0 EU/dl) 1.0 Ur Leukocyte Esterase (NEG) NEG Ur Microscopic EXAM NOT REQUIRED Urine Hemoglobin (NEG) NEG Urine Glucose (N MG/DL) >=1000 H 01/05 1825 Chemistry Sodium (137 - 145 mmol/L) 134 L Potassium (3.5 - 5.1 mmol/L) 4.7 Chloride (98 - 107 mmol/L) 96 L Carbon Dioxide (22 - 30 mmol/L) 23 Anion Gap (5 - 16) 16 BUN (9 - 20 mg/dL) 11 Creatinine (0.7 - 1.2 mg/dL) 0.5 L Estimated GFR (>60 ml/min) > 60 BUN/Creatinine Ratio (7 - 25 %) 22.0 Glucose (65 - 99 mg/dL) 543 *H Lactic Acid (0.7 - 2.1 mmol/L) 2.7 H Calcium (8.4 - 10.2 mg/dL) 9.3 Total Bilirubin (0.2 - 1.3 mg/dL) 0.9 AST (17 - 59 U/L) 30 ALT (21 - 72 U/L) 35 Alkaline Phosphatase (< 127 U/L) 103 Troponin I (<0.11 ng/ml) < 0.01 C-Reactive Prot, Quant (<1.0 mg/dL) 2.0 H Total Protein (6.3 - 8.2 g/dL) 8.2 Albumin (3.5 - 5.0 g/dL) 4.4 Globulin (1.9 - 4.2 gm/dL) 3.8 Albumin/Globulin Ratio (1.1 - 2.2 %) 1.2 Hematology CBC w Diff NO MAN DIFF REQ WBC (4.8 - 10.8 /CUMM) 7.4 RBC (4.70 - 6.10 /CUMM) 4.76 Hgb (14.0 - 18.0 G/DL) 14.8 Hct (42 - 52 %) 42.9 MCV (80.0 - 94.0 FL) 90.0 MCH (27.0 - 31.0 PG) 31.1 H MCHC (33.0 - 37.0 G/DL) 34.5 RDW (11.5 - 14.5 %) 13.8 Plt Count (130 - 400 /CUMM) 211 MPV (7.4 - 10.4 FL) 10.2 Gran % (42.2 - 75.2 %) 70.5 Lymphocytes % (20.5 - 51.1 %) 23.0 Monocytes % (1.7 - 9.3 %) 4.5 Eosinophils % (0 - 5 %) 1.5 Basophils % (0.0 - 2.0 %) 0.5 Absolute Granulocytes (1.4 - 6.5 /CUMM) 5.2 Absolute Lymphocytes (1.2 - 3.4 /CUMM) 1.7 Absolute Monocytes (0.10 - 0.60 /CUMM) 0.3 Absolute Eosinophils (0.0 - 0.7 /CUMM) 0.1 Absolute Basophils (0.0 - 0.2 /CUMM) 0 ESR Westergren (0 - 10 MM) 37 H Last 24 Hours of [place] Results: Blood cultures 2 January 05 negative OR culture labeled right foot deep tissue January 06 pending Diagnostic Data Recent Imaging Findings: X-ray of the right foot revealed a question of soft tissue gas along the distal lateral aspect of the foot with possible punctate foreign body densities in the plantar soft tissues. Doppler of the right lower extremity was negative for DVT. Arterial Doppler of the right lower extremity revealed peripheral arterial disease similar to the previous study one year prior to admission. 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 He has little evidence for infection, with temperatures and white blood cell count normal and with no evidence on MRI or in the OR for any collection or extension to the bone. As he appears stable he can be followed off antibiotics pending the OR culture. He does have evidence of peripheral vascular disease, status post an angiogram of the right lower extremity one year ago, with no intervention felt indicated at that time. Suggestion: 1. Follow-up OR culture 2. Consider Vascular surgery reevaluation 3. Continue to follow off antibiotics pending above Consult Acknowledgment - Thank you for your consult request.
--- NOTE | 2018-01-06 16:36 | Operative Report ---
Operative/Inv Procedure Report Surgery Date: 01/06/18 Name of Procedure: Incision and drainage, right foot Pre-Operative Diagnosis: Infected puncture wound right foot with associated small fluid collection. Post-Operative Diagnosis: Infected puncture wound right foot with associated small fluid collection. Estimated Blood Loss: less than 50ml Surgeon/Licensed Bondsman: lEver Magdaleno DPM Anesthesia: local monitored anesthesi, 19 cc 50/50 mix of 0.5% Marcaine plain and 2% Lidocaine plain Microbiology: Deep tissue culture, right foot Tourniquet: None Complications: None Condition: Stable Operative Indication: This is an uncontrolled diabetic male with a history of multiple foot infections , partial right foot amputation and PVD s/p revascularization. He has a new onset wound 2 weeks ago under the 2nd and 3rd metatarsal heads stemming from a 1 -mile walk after his car broke down on the side of the road. He noted chills and malaise last night and came to the ED. He was examined, radiographed, and had an MRI that upon my read demonstrated subcutaneous involvement and likely small fluid collection adjacent to the puncture wound. This indicated prompt I&D. Operative/Procedure Note Note: After the right foot was prepped and draped in the usual sterile manner with Betadine, the plantar aspect of the right foot was again examined. There was a 2cm diameter round ulceration with a central nidus of fibrous and necrotic tissue and significant superficial bullous undermining. A 3 cm plantar incision was made distal to proximal through this lesion full thickness into the plantar bursal spaces. A small patch of devitalized subcutaneous fat was visualized just deep to this nidus and a 1cc purulent collection was drained, and this fat specimen was sent as a deep tissue culture. The subcutaneous fat was excisionally debrided, and a small hemostat was used to bluntly explore the 1st and 2nd intermetatarsal spaces as well as the plantar compartments for further undermining, and none was found. After the devitalized tissues were removed, and the remaining subcutaneous tissues were normal upon inspection, the wound was irrigated with 3L NS/bacitracin solution via cystoscopy tubing and gravity. The wound was packed with 1/2" iodoform packing and a well-padded dry sterile dressing was applied made of xeroform, 4x4 gauze, ABD pads, 4" Kerlix and a 4" Brian bandage. The patient was escorted to the PACU in no apparent distress, vital signs stable , afebrile. He will be permitted to ambulate to the bathroom and back on a flat surgical shoe or with the assistance of crutches as needed. I will follow-up on him tomorrow, and likely return him to the OR Thursday for further washout and delayed primary closure. Discharge Disposition: PACU Additional Comments: I discussed the case with Dr. Proctor shortly after the procedure. With the findings not particularly impressive, we agreed to monitor while off antibiotics and treat as needed based on the culture findings.
[2018-01-06 17:50] VITALS: BP 114/64
[2018-01-06 21:21] VITALS: BP 130/72
[2018-01-07 06:14] VITALS: BP 120/70
[2018-01-07 08:16] LABS: ABSOLUTE BASOPHIL COUNT 0 /CUMM (0.0-0.2); ABSOLUTE EOSINOPHIL COUNT 0.1 /CUMM (0.0-0.7); ABSOLUTE GRANULOCYTE CT 7.7 /CUMM (1.4-6.5); ABSOLUTE LYMPH COUNT 1.7 /CUMM (1.2-3.4); ABSOLUTE MONOCYTE COUNT 0.6 /CUMM (0.10-0.60); BASOPHIL % 0.3 % (0.0-2.0); EOSINOPHIL % 1.2 % (0-5); GRANULOCYTE % 75.3 % (42.2-75.2); HEMATOCRIT 38.9 % (42-52); MEAN CORPUSCULAR HGB 30.6 PG (27.0-31.0); MEAN CORPUSCULAR HGB CONC 34.1 G/DL (33.0-37.0); MEAN CORPUSCULAR VOLUME 89.8 FL (80.0-94.0); PLATELET COUNT 192 /CUMM (130-400); RBC DISTRIBUTION WIDTH 13.6 % (11.5-14.5); RED BLOOD CELL CT 4.33 /CUMM (4.70-6.10); WHITE BLOOD CELL COUNT 10.2 /CUMM (4.8-10.8)
--- NOTE | 2018-01-07 09:45 | PN- Podiatry ---
Subjective Subjective: 47 y/o male seen and evaluated at bedside POD1 I&D infected puncture wound right foot. Pt reports BLE burning pains and reports he has not had neurontin since his admission, which he normally takes for DM neuropathy. He reports throbbing pain at the surgical site, and denies f/c/n/v/d/sob/cp at the time of my examination. Objective Vital Signs and I&Os Vital Signs Date Time Temp Pulse Resp B/P B/P Pulse O2 O2 Flow FiO2 Mean Ox Delivery Rate 01/07 09 68 132/80 01/07 0614 99.0 103 18 120/70 96 Room Air 01/06 2121 98.1 85 18 130/72 94 Room Air 01/06 1750 97.8 77 18 114/64 98 Room Air 01/06 1201 97.7 73 18 132/73 96 Room Air Intake & Output 01/07 1600 01/07 0800 01/07 0000 01/06 1600 01/06 0800 01/06 0000 Intake Total 120 600 240 Output Total Balance 120 600 240 Intake, IV 600 Intake, Oral 120 240 Patient 239 lb 245 lb Weight Weight Reported by Patient Measurement Method Physical Exam: Neurovascular status is unchanged. Foot is not tender upon direct palpation. Surgical site is clean, dry, and intact with minimal capillary oozing. 5/5 muscle power all BLE compartments. Current Medications: Current Medications Sig/[place] Start time Last Medication Dose Route Stop Time Status Admin Atorvastatin Calcium 20 MG AT BEDTIME 01/06 2200 AC 01/06 PO 2341 Dextrose/Sodium 1,000 ML Q13H 01/06 0345 DC 01/06 Chloride IV 0442 Heparin Sodium 5,000 UNIT Q8 01/06 220 AC 01/07 (Porcine) SC 0618 Insulin Aspart 0 AT BEDTIME 01/06 2200 AC 01/06 SC 2210 Insulin Aspart 0 TIDAC 01/06 1845 AC 01/07 SC 0918 Insulin Aspart 0 Q4 01/06 0845 DC 01/06 SC 1815 Insulin Detemir 40 UNITS BID 01/07 0900 AC 01/07 SC 0919 Insulin Detemir 30 UNITS BID 01/06 1000 DC 01/06 SC 2210 Levothyroxine Sodium 0.1 MG DAILY AC 01/06 0700 AC 01/07 PO 0632 Lisinopril 5 MG DAILY 01/06 1000 AC 01/07 PO 0919 Morphine Sulfate 2 MG Q6P PRN 01/06 1230 AC 01/07 IV 0618 Morphine Sulfate 0 .STK-MED ONE 01/06 1031 DC .ROUTE Morphine Sulfate 2 MG ONCE ONE 01/06 1000 DC 01/06 IV 01/06 1001 1030 Oxycodone/ See Dose Q6P PRN 01/07 0900 UNVr Acetaminophen Insts (1) PO Pregabalin 150 MG BID 01/07 0900 AC 01/07 PO 0919 Trazodone HCl 50 MG AT BEDTIME 01/07 2100 UNVr PO Dose Instructions: (1)Oxycodone/Acetaminophen: 1-2 TAB Results Last 48 Hours of Labs: Laboratory Tests 01/07 01/05 01/05 0630 2155 2030 Chemistry Sodium (137 - 145 mmol/L) 137 Potassium (3.5 - 5.1 mmol/L) 3.8 Chloride (98 - 107 mmol/L) 99 Carbon Dioxide (22 - 30 mmol/L) 26 Anion Gap (5 - 16) 12 BUN (9 - 20 mg/dL) 10 Creatinine (0.7 - 1.2 mg/dL) 0.6 L Estimated GFR (>60 ml/min) > 60 BUN/Creatinine Ratio (7 - 25 %) 16.7 Hemoglobin A1c (4.2 - 5.8 %) 10.3 H Lactic Acid (0.7 - 2.1 mmol/L) 1.1 Hematology CBC w Diff NO MAN DIFF REQ WBC (4.8 - 10.8 /CUMM) 10.2 RBC (4.70 - 6.10 /CUMM) 4.33 L Hgb (14.0 - 18.0 G/DL) 13.3 L Hct (42 - 52 %) 38.9 L MCV (80.0 - 94.0 FL) 89.8 MCH (27.0 - 31.0 PG) 30.6 MCHC (33.0 - 37.0 G/DL) 34.1 RDW (11.5 - 14.5 %) 13.6 Plt Count (130 - 400 /CUMM) 192 MPV (7.4 - 10.4 FL) 10.0 Gran % (42.2 - 75.2 %) 75.3 H Lymphocytes % (20.5 - 51.1 %) 16.9 L Monocytes % (1.7 - 9.3 %) 6.3 Eosinophils % (0 - 5 %) 1.2 Basophils % (0.0 - 2.0 %) 0.3 Absolute Granulocytes (1.4 - 6.5 /CUMM) 7.7 H Absolute Lymphocytes (1.2 - 3.4 /CUMM) 1.7 Absolute Monocytes (0.10 - 0.60 /CUMM) 0.6 Absolute Eosinophils (0.0 - 0.7 /CUMM) 0.1 Absolute Basophils (0.0 - 0.2 /CUMM) 0 01/05 01/05 1925 1825 Chemistry Sodium (137 - 145 mmol/L) 134 L Potassium (3.5 - 5.1 mmol/L) 4.7 Chloride (98 - 107 mmol/L) 96 L Carbon Dioxide (22 - 30 mmol/L) 23 Anion Gap (5 - 16) 16 BUN (9 - 20 mg/dL) 11 Creatinine (0.7 - 1.2 mg/dL) 0.5 L Estimated GFR (>60 ml/min) > 60 BUN/Creatinine Ratio (7 - 25 %) 22.0 Glucose (65 - 99 mg/dL) 543 *H Lactic Acid (0.7 - 2.1 mmol/L) 2.7 H Calcium (8.4 - 10.2 mg/dL) 9.3 Total Bilirubin (0.2 - 1.3 mg/dL) 0.9 AST (17 - 59 U/L) 30 ALT (21 - 72 U/L) 35 Alkaline Phosphatase (< 127 U/L) 103 Troponin I (<0.11 ng/ml) < 0.01 C-Reactive Prot, Quant (<1.0 mg/dL) 2.0 H Total Protein (6.3 - 8.2 g/dL) 8.2 Albumin (3.5 - 5.0 g/dL) 4.4 Globulin (1.9 - 4.2 gm/dL) 3.8 Albumin/Globulin Ratio (1.1 - 2.2 %) 1.2 Hematology CBC w Diff NO MAN DIFF REQ WBC (4.8 - 10.8 /CUMM) 7.4 RBC (4.70 - 6.10 /CUMM) 4.76 Hgb (14.0 - 18.0 G/DL) 14.8 Hct (42 - 52 %) 42.9 MCV (80.0 - 94.0 FL) 90.0 MCH (27.0 - 31.0 PG) 31.1 H MCHC (33.0 - 37.0 G/DL) 34.5 RDW (11.5 - 14.5 %) 13.8 Plt Count (130 - 400 /CUMM) 211 MPV (7.4 - 10.4 FL) 10.2 Gran % (42.2 - 75.2 %) 70.5 Lymphocytes % (20.5 - 51.1 %) 23.0 Monocytes % (1.7 - 9.3 %) 4.5 Eosinophils % (0 - 5 %) 1.5 Basophils % (0.0 - 2.0 %) 0.5 Absolute Granulocytes (1.4 - 6.5 /CUMM) 5.2 Absolute Lymphocytes (1.2 - 3.4 /CUMM) 1.7 Absolute Monocytes (0.10 - 0.60 /CUMM) 0.3 Absolute Eosinophils (0.0 - 0.7 /CUMM) 0.1 Absolute Basophils (0.0 - 0.2 /CUMM) 0 ESR Westergren (0 - 10 MM) 37 H Urines Urine Color (YEL,AMB,STR) YEL Urine Clarity (CLEAR) CLEAR Urine pH (5.0 - 8.0) 6.5 Ur Specific [place] (1.001 - 1.035) 1.010 Urine Protein (NEG,<30 MG/DL) NEG Urine Ketones (NEG) NEG Urine Nitrite (NEG) NEG Urine Bilirubin (NEG) NEG Urine Urobilinogen (0.1 - 1.0 EU/dl) 1.0 Ur Leukocyte Esterase (NEG) NEG Ur Microscopic EXAM NOT REQUIRED Urine Hemoglobin (NEG) NEG Urine Glucose (N MG/DL) >=1000 H Assessment/Plan Assessment/Plan 47 year old uncontrolled DM male with PVD s/p revascularization improving s/p exploratory I&D for an infected puncture wound of the right forefoot. Pt seen and evaluated Packing removed, DSD with padding applied Pt may WBAT in flat surgical shoe to the bathroom and back. If this is too painful, would order crutches and PT training. Pt is clear for OOB to chair. Will f/u intraop C&S, case d/w Dr. Proctor, yelitza to monitor off ABx for now MRI report reviewed, agree that there is no substantial evidence of abscess, but given potential for foreign bodies from puncture wound and likelihood of immunocompromise from uncontrolled DM + PAD, it is still indicated, especially if ABx therapy is to be avoided. Will return pt to OR for repeat washout and DPC, will likely clear for discharge afterward. Core Measures Venous Thromboembolism VTE Risk Factors Age>40 No Mechanical VTE Prophylaxis d/t N/A MechProphylax Ordered No VTE Pharm Prophylaxis d/t Surgical Contraindication
--- NOTE | 2018-01-07 10:26 | PN- Diabetes ---
Assessment/Plan Diabetes Assessment: 47 y/o female who was diagnosed with diabetes in his 30s. In addition, he has had a hx of right foot osteomyelitis positive for MRSA, hypothyroidism, peripheral neuropathy, diabetic retinopathy s/p laser treatment. At home, he was on Levemir 60 units twice a day and Humalog 12 units before meals. He presented with right foot open wound. He underwent incision and drainage of right foot on 01/06/2018. After procedure, he was put on Levemir 30 units twice day, Novolog coverage before meals and Novolog coverage at bedtime. His FSGs were 277, 308 and 257. His HbA1c was 10.3%. Plan: 1. increase Levemir to 40 units twice a day; 2. Adjust Novolog coverage before meals; detail see the inpatient DM order; 3. continue the current Novolog coverage at bedtime; 4. monitor FSGs. will follow. Inpatient Diabetes Orders Before Each Meal: Bolus Insulin: Novolog < 80 mg/dl: no coverage 80-100 mg/dl: 8 units 101-120 mg/dl: 8 units 121-150 mg/dl: 8 units 151-200 mg/dl: 10 units 201-250 mg/dl: 12 units 251-300 mg/dl: 14 units 301-350 mg/dl: 16 units 351-400 mg/dl: 18 units > 400 mg/dl: 20 units Subjective Subjective: He still has pain on his right foot. Objective Last 24 Hrs of Vital Signs/I&O Vital Signs Date Time Temp Pulse Resp B/P B/P Pulse O2 O2 Flow FiO2 Mean Ox Delivery Rate 01/07 0919 68 132/80 01/07 0614 99.0 103 18 120/70 96 Room Air 01/06 212 98.1 85 18 130/72 94 Room Air 01/06 1750 97.8 77 18 114/64 98 Room Air 01/06 1201 97.7 73 18 132/73 96 Room Air Intake & Output 01/07 1600 01/07 0800 01/07 0000 Intake Total 120 Output Total Balance 120 Intake, Oral 120 Patient 239 lb Weight Findings Pertinent Lab/[place] Results: Laboratory Tests 01/07 0630 Chemistry Sodium (137 - 145 mmol/L) 137 Potassium (3.5 - 5.1 mmol/L) 3.8 Chloride (98 - 107 mmol/L) 99 Carbon Dioxide (22 - 30 mmol/L) 26 Anion Gap (5 - 16) 12 BUN (9 - 20 mg/dL) 10 Creatinine (0.7 - 1.2 mg/dL) 0.6 L Estimated GFR (>60 ml/min) > 60 BUN/Creatinine Ratio (7 - 25 %) 16.7 Hematology CBC w Diff NO MAN DIFF REQ WBC (4.8 - 10.8 /CUMM) 10.2 RBC (4.70 - 6.10 /CUMM) 4.33 L Hgb (14.0 - 18.0 G/DL) 13.3 L Hct (42 - 52 %) 38.9 L MCV (80.0 - 94.0 FL) 89.8 MCH (27.0 - 31.0 PG) 30.6 MCHC (33.0 - 37.0 G/DL) 34.1 RDW (11.5 - 14.5 %) 13.6 Plt Count (130 - 400 /CUMM) 192 MPV (7.4 - 10.4 FL) 10.0 Gran % (42.2 - 75.2 %) 75.3 H Lymphocytes % (20.5 - 51.1 %) 16.9 L Monocytes % (1.7 - 9.3 %) 6.3 Eosinophils % (0 - 5 %) 1.2 Basophils % (0.0 - 2.0 %) 0.3 Absolute Granulocytes (1.4 - 6.5 /CUMM) 7.7 H Absolute Lymphocytes (1.2 - 3.4 /CUMM) 1.7 Absolute Monocytes (0.10 - 0.60 /CUMM) 0.6 Absolute Eosinophils (0.0 - 0.7 /CUMM) 0.1 Absolute Basophils (0.0 - 0.2 /CUMM) 0
--- NOTE | 2018-01-07 10:58 | PN- Housestaff ---
Subjective Follow-up For: R foot wound Subjective: No acute events overnight. Requesting perc instead of morphine and gabapentin/ lyrica for pain. Also asking for trazodone for sleep as he takes it at home. Review of Systems Constitutional: Reports: see HPI. Objective Last 24 Hrs of Vital Signs/I&O Vital Signs Date Time Temp Pulse Resp B/P B/P Pulse O2 O2 Flow FiO2 Mean Ox Delivery Rate 01/07 1444 99.1 94 20 98/60 95 01/07 0919 68 132/80 01/07 0614 99.0 103 18 120/70 96 Room Air 01/06 2121 98.1 85 18 130/72 94 Room Air Intake & Output 01/07 1600 01/07 0800 01/07 0000 Intake Total 910 120 Output Total Balance 910 120 Intake, IV 10 Intake, Oral 900 120 Patient 239 lb Weight Physical Exam General Appearance: Alert, Oriented X3, Cooperative, No Acute Distress Cardiovascular: Regular Rate, Normal S1, Normal S2 Lungs: Clear to Auscultation, Normal Air Movement Abdomen: Normal Bowel Sounds, Soft, No Tenderness Extremities: R foot covered in guaze Vascular: 2+ radial pulses Current Medications: Current Medications Sig/[place] Start time Last Medication Dose Route Stop Time Status Admin Atorvastatin Calcium 20 MG AT BEDTIME 01/06 2200 AC 01/06 PO 2341 Dextrose/Sodium 1,000 ML Q20H 01/08 0000 AC Chloride IV Heparin Sodium 5,000 UNIT Q8 01/06 2200 AC 01/07 (Porcine) SC 1407 Insulin Aspart 0 Q4 01/08 0005 AC SC Insulin Aspart 0 AT BEDTIME 01/06 2200 AC 01/06 SC 01/08 0000 2210 Insulin Aspart 0 TIDAC 01/06 1845 AC 01/07 NE 01/08 0000 1218 Insulin Detemir 30 UNITS BID 01/07 2100 AC SC Insulin Detemir 40 UNITS BID 01/07 0900 DC 01/07 SC 0919 Insulin Detemir 30 UNITS BID 01/06 1000 DC 01/06 SC 2210 Levothyroxine Sodium 0.1 MG DAILY AC 01/06 0700 AC 01/07 PO 0632 Lisinopril 5 MG DAILY 01/06 1000 AC 01/07 PO 0919 Morphine Sulfate 2 MG Q6P PRN 01/06 1230 AC 01/07 IV 1716 Oxycodone/ 1 TAB Q6P PRN 01/07 900 AC 01/07 Acetaminophen PO 1018 Pregabalin 150 MG BID 01/07 900 AC 01/07 PO 0919 Trazodone HCl 50 MG AT BEDTIME 01/07 2100 AC PO Last 24 Hrs of Lab/Pelon Results Last 24 Hrs of Labs/Mics: Laboratory Tests 01/07/18 0630: Anion Gap 12, Estimated GFR > 60, BUN/Creatinine Ratio 16.7, CBC w Diff NO MAN DIFF REQ, RBC 4.33 L, MCV 89.8, MCH 30.6, MCHC 34.1, RDW 13.6, MPV 10.0, Gran % 75.3 H, Lymphocytes % 16.9 L, Monocytes % 6.3, Eosinophils % 1.2, Basophils % 0.3, Absolute Granulocytes 7.7 H, Absolute Lymphocytes 1.7, Absolute Monocytes 0.6, Absolute Eosinophils 0.1, Absolute Basophils 0 Assessment/Plan Assessment: Mr. Dent is a 47 yo m with a PMH significant for right foot osteomyelitis positive for MRSA, hypothyroidism, peripheral neuropathy, diabetic retinopathy s /p laser photocoagulation, IDDM, HTN, chronic back pain after an occupational injury presenting for right foot plantar ulcer with possible cellulitis vs abscess s/p debridement. Problems: R foot ulcer s/p injury with ?cellulitis/osteo Plan: -f/u postop cultures -Currently off antibiotics, per ID -f/u vascular surgery consult -changed pain meds to home reigmen of percs, lyrica, gabapentin and trazodone for sleep -continue endocrinology recommendations for blood sugar control -Contact endocrinology for any diet changes, to change insulin regimen -Blood sugars elevated at 543, hemoglobin A1c 10.3 -Lactic acid 2.7, 1.1 -CRP 2.0 -Foot x-ray shows shock tissue gas, foreign bodies. MRI negative for osteomyelitis, shows cellulitis -Venous Doppler negative, arterial Doppler reveals PVD -Consider vascular consult Diet: Diabetic Code: FULL DVT ppx: ALPS Problem List: 1. Contusion Pain Ratin Pain Location: R foot Pain Goal: Pain 4 or less Pain Plan: home regimen Tomorrow's Labs & Rationales: cbc
--- NOTE | 2018-01-07 12:04 | PN- Att Addend ---
Attending Addendum Attending Brief Note Patient seen and examined, was not feeling well. He was complaining of headache as he could not get enough sleep last night. Vital Signs Date Time Temp Pulse Resp B/P B/P Pulse O2 O2 Flow FiO2 Mean Ox Delivery Rate 01/07 0919 68 132/80 01/07 0614 99.0 103 18 120/70 96 Room Air 01/06 2121 98.1 85 18 130/72 94 Room Air 01/06 1750 97.8 77 18 114/64 98 Room Air 01/06 1201 97.7 73 18 132/73 96 Room Air on exam; on exam; aox3, nad. cv; s1,s2, rrr resp; clear abd; soft, nt, bs+ ext; + right foot ulcer wrapped in dressing, no edema Laboratory Tests 01/07 630 Chemistry Sodium (137 - 145 mmol/L) 137 Potassium (3.5 - 5.1 mmol/L) 3.8 Chloride (98 - 107 mmol/L) 99 Carbon Dioxide (22 - 30 mmol/L) 26 Anion Gap (5 - 16) 12 BUN (9 - 20 mg/dL) 10 Creatinine (0.7 - 1.2 mg/dL) 0.6 L Estimated GFR (>60 ml/min) > 60 BUN/Creatinine Ratio (7 - 25 %) 16.7 Hematology CBC w Diff NO MAN DIFF REQ WBC (4.8 - 10.8 /CUMM) 10.2 RBC (4.70 - 6.10 /CUMM) 4.33 L Hgb (14.0 - 18.0 G/DL) 13.3 L Hct (42 - 52 %) 38.9 L MCV (80.0 - 94.0 FL) 89.8 MCH (27.0 - 31.0 PG) 30.6 MCHC (33.0 - 37.0 G/DL) 34.1 RDW (11.5 - 14.5 %) 13.6 Plt Count (130 - 400 /CUMM) 192 MPV (7.4 - 10.4 FL) 10.0 Gran % (42.2 - 75.2 %) 75.3 H Lymphocytes % (20.5 - 51.1 %) 16.9 L Monocytes % (1.7 - 9.3 %) 6.3 Eosinophils % (0 - 5 %) 1.2 Basophils % (0.0 - 2.0 %) 0.3 Absolute Granulocytes (1.4 - 6.5 /CUMM) 7.7 H Absolute Lymphocytes (1.2 - 3.4 /CUMM) 1.7 Absolute Monocytes (0.10 - 0.60 /CUMM) 0.6 Absolute Eosinophils (0.0 - 0.7 /CUMM) 0.1 Absolute Basophils (0.0 - 0.2 /CUMM) 0 A/P; 47 y/o M with pmh sig for right foot osteomyelitis positive for MRSA, hypothyroidism, peripheral neuropathy, diabetic retinopathy s/p laser photocoagulation, IDDM, HTN, chronic back pain admitted with right foot plantar ulcer with question of osteoarthritis, hyperglycemia and uncontrolled diabetes. Arterial Doppler also consistent with peripheral artery disease. Status post IND yesterday with the commissary helper. Currently has been watched off of antibiotics. We need to follow-up on the cultures. Will follow-up with infectious disease. Patient be taken to or again likely tomorrowfor the closure of the wound. Blood glucose not under control. Levemir dose has been increased by endocrinology. Continue current pain management. DVt px; Hep sq.
[2018-01-07 14:44] VITALS: BP 98/60
--- NOTE | 2018-01-07 15:26 | PN- Infect Dx ---
Subjective Subjective: Afebrile without complaints Objective Last 24 Hrs of Vital Signs/I&O Vital Signs Date Time Temp Pulse Resp B/P B/P Pulse O2 O2 Flow FiO2 Mean Ox Delivery Rate 01/07 1444 99.1 94 20 98/60 95 01/07 0919 68 132/80 01/07 0614 99.0 103 18 120/70 96 Room Air 01/06 2121 98.1 85 18 130/72 94 Room Air 01/06 1750 97.8 77 18 114/64 98 Room Air Intake & Output 01/07 1600 01/07 0800 01/07 0000 Intake Total 910 120 Output Total Balance 910 120 Intake, IV 10 Intake, Oral 900 120 Patient 239 lb Weight Physical Exam Other Physical Findings: He appears comfortable in no acute distress Extremities right foot dressing intact Results Last 24 Hours of Lab Results: Laboratory Tests 01/07 0630 Chemistry Sodium (137 - 145 mmol/L) 137 Potassium (3.5 - 5.1 mmol/L) 3.8 Chloride (98 - 107 mmol/L) 99 Carbon Dioxide (22 - 30 mmol/L) 26 Anion Gap (5 - 16) 12 BUN (9 - 20 mg/dL) 10 Creatinine (0.7 - 1.2 mg/dL) 0.6 L Estimated GFR (>60 ml/min) > 60 BUN/Creatinine Ratio (7 - 25 %) 16.7 Hematology CBC w Diff NO MAN DIFF REQ WBC (4.8 - 10.8 /CUMM) 10.2 RBC (4.70 - 6.10 /CUMM) 4.33 L Hgb (14.0 - 18.0 G/DL) 13.3 L Hct (42 - 52 %) 38.9 L MCV (80.0 - 94.0 FL) 89.8 MCH (27.0 - 31.0 PG) 30.6 MCHC (33.0 - 37.0 G/DL) 34.1 RDW (11.5 - 14.5 %) 13.6 Plt Count (130 - 400 /CUMM) 192 MPV (7.4 - 10.4 FL) 10.0 Gran % (42.2 - 75.2 %) 75.3 H Lymphocytes % (20.5 - 51.1 %) 16.9 L Monocytes % (1.7 - 9.3 %) 6.3 Eosinophils % (0 - 5 %) 1.2 Basophils % (0.0 - 2.0 %) 0.3 Absolute Granulocytes (1.4 - 6.5 /CUMM) 7.7 H Absolute Lymphocytes (1.2 - 3.4 /CUMM) 1.7 Absolute Monocytes (0.10 - 0.60 /CUMM) 0.6 Absolute Eosinophils (0.0 - 0.7 /CUMM) 0.1 Absolute Basophils (0.0 - 0.2 /CUMM) 0 Last 24 Hours of Pelon Results: Blood cultures January 05 negative OR culture labeled right foot deep tissue negative Assessment/Plan ID Impression: Stable, with temperatures and white blood cell count remaining normal, off antibiotics status post an I&D of a puncture wound of the right foot with drainage of a small fluid collection, with the culture so far negative. He is scheduled for a return to the OR in the a.m. for wound closure. Suggestion: 1. Follow-up final OR culture 2. Await return to the OR in the a.m. 3. Vascular Surgery reevaluation per Podiatry 4. Continue to follow off antibiotics pending above
--- NOTE | 2018-01-07 18:03 | Cons- Vascular Surgery ---
Kaleigh Curiel 01/07/18 1748: General Information and HPI Consulting Request Date of Consult: 01/07/18 Requested By: Judith Calderon MD Reason for Consult: Hx of PAD s/p RLExt Angio with cath 12/2016 now with Right foot osteomyelitis Source of Information: patient Exam Limitations: no limitations History of Present Illness: This is a 47 yo m with a PMHx significant for right foot osteomyelitis positive for MRSA, hypothyroidism, peripheral neuropathy, diabetic retinopathy s/p laser photocoagulation, IDDM, HTN, chronic back pain after an occupational injury who presents to the ED with right plantar open wounds. Workup was obtained and revealed right foot nonhealing ulcer status post traumatic puncture wound 2 weeks ago. He is admitted to the Medical Service and Vascular has been consulted to determine if any intervention is required. From a vascular standpoint the patient has no complaints. He has ungoing neuropathy but this is chronic. His primary issue is just the ongoing wound on the foot. Allergies/Medications Allergies: Coded Allergies: No Known Allergies (12/16/16) Current Medications: Current Medications Sig/[place] Start time Last Medication Dose Route Stop Time Status Admin Atorvastatin Calcium 20 MG AT BEDTIME 01/06 2200 AC 01/06 PO 2341 Dextrose/Sodium 1,000 ML Q20H 01/08 0000 AC Chloride IV Dextrose/Sodium 1,000 ML Q13H 01/06 0345 DC 01/06 Chloride IV 0442 Heparin Sodium 5,000 UNIT Q8 01/06 2200 AC 01/07 (Porcine) SC 1407 Insulin Aspart 0 Q4 01/08 0005 AC SC Insulin Aspart 0 AT BEDTIME 01/06 2200 AC 01/06 SC 01/08 0000 2210 Insulin Aspart 0 TIDAC 01/06 1845 AC 01/07 SC 01/08 0000 1218 Insulin Aspart 0 Q4 01/06 0845 DC 01/06 SC 1815 Insulin Detemir 30 UNITS BID 01/07 2100 AC SC Insulin Detemir 40 UNITS BID 01/07 0900 DC 01/07 SC 0919 Insulin Detemir 30 UNITS BID 01/06 1000 DC 01/06 SC 2210 Levothyroxine Sodium 0.1 MG DAILY AC 01/06 0700 AC 01/07 PO 0632 Lisinopril 5 MG DAILY 01/06 1000 AC 01/07 PO 0919 Morphine Sulfate 2 MG Q6P PRN 01/06 1230 AC 01/07 IV 1716 Oxycodone/ 1 TAB Q6P PRN 01/07 0900 AC 01/07 Acetaminophen PO 1018 Pregabalin 150 MG BID 01/07 09 AC 01/07 PO 0919 Trazodone HCl 50 MG AT BEDTIME 01/07 2100 AC PO Past History Medical History Blood Transfusion Hx: No Neurological: peripheral neuropathy EENT: diabetic retinopathy Cardiovascular: NONE Respiratory: NONE Gastrointestinal: NONE Hepatic: NONE Renal: nephrolithiasis Musculoskeletal: NONE Psychiatric: NONE Endocrine: diabetes, hypothyroidism Blood Disorders: NONE Cancer(s): NONE SALES CLOSER/Reproductive: NONE Surgical History Pertinent Surgical History: revascularization right lower extremity partial fourth and fifth ray amputations, right foot Psychosocial History Where Do You Live? Home Smoking Status: Former Smoker ETOH Use: denies use Illicit Drug Use: denies illicit drug use Functional Ability ADLs Independent: dressing, eating, toileting, bathing. Ambulation: independent IADLs Independent: shopping, housework, finances, food prep, telephone, transportation , medication admin. Review of Systems Review of Systems: as per hpi Exam & Diagnostic Data Vital Signs and I&O Vital Signs Date Time Temp Pulse Resp B/P B/P Pulse O2 O2 Flow FiO2 Mean Ox Delivery Rate 01/07 1444 99.1 94 20 98/60 95 01/07 0919 68 132/80 01/07 06 99.0 103 18 120/70 96 Room Air 01/06 2121 98.1 85 18 130/72 94 Room Air Intake & Output 01/07 1600 01/07 0800 01/07 0000 01/06 1600 01/06 0801/06 0000 Intake Total 910 120 600 240 Output Total Balance 910 120 600 240 Intake, IV 10 600 Intake, Oral 900 120 240 Patient 239 lb 245 lb Weight Weight Reported by Patient Measurement Method Physical Exam: General: A, A, NAD Extremities: No clubbing, cyanosis, or edema, Right Foot wrapped in a surgical dsg which is c/d/i, 1+ pt pulse, neurovascular status intact Last 24 Hours of Labs: Laboratory Tests 01/07 0630 Chemistry Sodium (137 - 145 mmol/L) 137 Potassium (3.5 - 5.1 mmol/L) 3.8 Chloride (98 - 107 mmol/L) 99 Carbon Dioxide (22 - 30 mmol/L) 26 Anion Gap (5 - 16) 12 BUN (9 - 20 mg/dL) 10 Creatinine (0.7 - 1.2 mg/dL) 0.6 L Estimated GFR (>60 ml/min) > 60 BUN/Creatinine Ratio (7 - 25 %) 16.7 Hematology CBC w Diff NO MAN DIFF REQ WBC (4.8 - 10.8 /CUMM) 10.2 RBC (4.70 - 6.10 /CUMM) 4.33 L Hgb (14.0 - 18.0 G/DL) 13.3 L Hct (42 - 52 %) 38.9 L MCV (80.0 - 94.0 FL) 89.8 MCH (27.0 - 31.0 PG) 30.6 MCHC (33.0 - 37.0 G/DL) 34.1 RDW (11.5 - 14.5 %) 13.6 Plt Count (130 - 400 /CUMM) 192 MPV (7.4 - 10.4 FL) 10.0 Gran % (42.2 - 75.2 %) 75.3 H Lymphocytes % (20.5 - 51.1 %) 16.9 L Monocytes % (1.7 - 9.3 %) 6.3 Eosinophils % (0 - 5 %) 1.2 Basophils % (0.0 - 2.0 %) 0.3 Absolute Granulocytes (1.4 - 6.5 /CUMM) 7.7 H Absolute Lymphocytes (1.2 - 3.4 /CUMM) 1.7 Absolute Monocytes (0.10 - 0.60 /CUMM) 0.6 Absolute Eosinophils (0.0 - 0.7 /CUMM) 0.1 Absolute Basophils (0.0 - 0.2 /CUMM) 0 Imaging Results: Left Lower Extremity Venous Duplex 01/05/18: Normal triplex scan without evidence of deep venous thrombosis involving the lower extremity. Left Lower Extremity Duplex 01/05/18: Monophasic waveforms in the distal popliteal artery, posterior tibial artery, anterior tibial artery, and dorsalis pedis in the right lower extremity consistent with peripheral arterial disease. Findings similar to previous study. Assessment/Plan Assessment/Plan This is a 47 yo m with a PMHx significant for right foot osteomyelitis positive for MRSA, hypothyroidism, peripheral neuropathy, diabetic retinopathy s/p laser photocoagulation, IDDM, HTN, chronic back pain after an occupational injury who presents to the ED with right plantar open wounds. Workup was obtained and revealed right foot nonhealing ulcer status post traumatic puncture wound 2 weeks ago. No issues/interventions required from a vascular standpoint. Venous and arterial duplex scans look good/stable, decent peripheral pulse. Continue PAD medications. No vascular follow up needed. Will sign off. Call with any problems, questions, concerns, or change in clinical picture. Thank you for allowing us to participate in this patients care. Case discussed with Dr. Sarmiento who is in agreement with the plan of care. Problem List: 1. PAD (peripheral artery disease) Consult Acknowledgment - Thank you for your consult request. Adryan Sarmiento MD 01/17/18 1510: General Information and HPI Allergies/Medications Home Med List: Ampicillin Sodium/Sulbactam Na (Unasyn 3 Gm Vial) 3 GRAM VIAL 1 VIAL IV Q6 BACTEREMIA PLEASE CONTINUE UNASYN EVERY 6 HRS. LAST DAY FEBRUARY 11. Atorvastatin Calcium 20 MG TABLET 1 TAB PO AT BEDTIME CHOLESTEROL Insulin Detemir (Levemir) 100 UNIT/ML VIAL 45 UNITS SC BID DIABETES Insulin Lispro (Humalog Kwikpen U-100) 100 UNIT/ML INSULN.PEN 0 SC TID DM BEFORE MEALS Blood Insulin Sugar Units <80 0 81-150 10 151-200 13 201-250 16 251-300 18 301-350 20 351-400 22 >400 24 & Call Doctor AT BEDTIME Blood Insulin Sugar Units <80 0 81-100 0 101-200 0 201-250 0 251-300 4 301-350 6 351-400 8 >400 10, CALL Levothyroxine Sodium (Synthroid) 100 MCG TABLET 1 TAB PO DAILY HYPOTHYROIDISM (Reported) Lisinopril (Prinivil) 5 MG TABLET 1 TAB PO DAILY HTN (Reported) Oxycodone HCl/Acetaminophen (Percocet 5-325 MG Tablet) 5 MG-325 MG TABLET 1-2 TAB PO Q6P PRN PAIN Pregabalin (Lyrica) 150 MG CAPSULE 1 CAP PO BID NERVE DAMAGE (Reported) Trazodone HCl 50 MG TABLET 1 TAB PO QPM sleep (Reported) Assessment/Plan Consult Acknowledgment - Thank you for your consult request. Attending MD Review Statement Attending Statement Attending MD Statement: agreed w/resident/PA/CONTRACT ACCOUNTANT Attending Assessment/Plan: He has right pedal osteomyelitis, and his last arteriogram showed widely patent flow through the tibial arteries. He has pedal occlusive disease, which is not amenable to endovascular recanalization. He continues to have palpable pedal pulses. Recommend debridement per podiatry. Observe for evidence of wound healing. Follow up with Dr. Kaplan as outpatient
[2018-01-07 21:24] VITALS: BP 112/62
[2018-01-08 06:10] VITALS: BP 110/68
--- NOTE | 2018-01-08 07:21 | PN- Housestaff ---
Yassine COLLAZO,[facility] 01/08/18 0721: Subjective Follow-up For: R foot wound Subjective: No acute events overnight. States pain much improved after changing to home regimen. Going to OR this AM. Review of Systems Constitutional: Reports: see HPI. Objective Last 24 Hrs of Vital Signs/I&O Vital Signs Date Time Temp Pulse Resp B/P B/P Pulse O2 O2 Flow FiO2 Mean Ox Delivery Rate 01/08 1150 98.9 64 20 122/60 95 Room Air 01/08 0828 97.9 68 20 110/60 97 Room Air 01/08 0610 98.7 97 22 110/68 93 Room Air 01/07 2124 99.4 96 14 112/62 96 Room Air 01/07 1444 99.1 94 20 98/60 95 Intake & Output 01/08 1600 01/08 0800 01/08 0000 Intake Total 460 520 Output Total Balance 460 520 Intake, IV 400 Intake, Oral 60 520 Patient 239 lb Weight Physical Exam General Appearance: Alert, Oriented X3, Cooperative Cardiovascular: Regular Rate, Normal S1 Lungs: Clear to Auscultation, Normal Air Movement Abdomen: Normal Bowel Sounds, Soft, No Tenderness Extremities: R foot wound covered Vascular: 2+ radial pulses Current Medications: Current Medications Sig/[place] Start time Last Medication Dose Route Stop Time Status Admin Atorvastatin Calcium 20 MG AT BEDTIME 01/06 2200 AC 01/07 PO 2112 Dextrose/Sodium 1,000 ML Q20H 01/08 0000 DC 01/07 Chloride IV 2354 Heparin Sodium 5,000 UNIT Q8 01/06 2200 DC 01/07 (Porcine) CO 01/08 0000 2111 Insulin Aspart 0 TIDAC 01/08 1700 SC Insulin Aspart 0 Q4 01/08 0005 IA 01/08 CO 0554 Insulin Aspart 0 AT BEDTIME 01/06 2200 DC 01/07 CO 01/08 0000 2112 Insulin Aspart 0 TIDAC 01/06 1845 DC 01/07 SC 01/08 0000 1917 Insulin Detemir 40 UNITS BID 01/08 1215 AC SC Insulin Detemir 30 UNITS BID 01/07 2100 DC 01/07 SC 2112 Insulin Detemir 40 UNITS BID 01/07 0900 DC 01/07 SC 0919 Levothyroxine Sodium 0.1 MG DAILY AC 01/06 0700 AC 01/08 PO 0555 Lisinopril 5 MG DAILY 01/06 1000 AC 01/07 PO 0919 Morphine Sulfate 2 MG Q6P PRN 01/06 1230 AC 01/07 IV 1716 Oxycodone/ 1 TAB Q6P PRN 01/07 09 AC 01/08 Acetaminophen PO 013 Pregabalin 150 MG BID 01/07 900 AC 01/07 PO 2111 Trazodone HCl 50 MG AT BEDTIME 01/07 2100 AC 01/07 PO 2111 Last 24 Hrs of Lab/Pelon Results Last 24 Hrs of Labs/Mics: Laboratory Tests 01/08/18626: CBC w Diff NO MAN DIFF REQ, RBC 4.07 L, MCV 90.5, MCH 31.3 H, MCHC 34.6, RDW 13.7, MPV 10.2, Gran % 77.8 H, Lymphocytes % 15.8 L, Monocytes % 5.5, Eosinophils % 0.6, Basophils % 0.3, Absolute Granulocytes 9.3 H, Absolute Lymphocytes 1.9, Absolute Monocytes 0.7 H, Absolute Eosinophils 0.1, Absolute Basophils 0 Assessment/Plan Assessment: Mr. Dent is a 47 yo m with a PMH significant for right foot osteomyelitis positive for MRSA, hypothyroidism, peripheral neuropathy, diabetic retinopathy s /p laser photocoagulation, IDDM, HTN, chronic back pain after an occupational injury presenting for right foot plantar ulcer with possible cellulitis vs abscess s/p debridement. Problems: R foot ulcer s/p injury with ?cellulitis/osteo Plan: -s/p I+D and washout with primary closure -OR cx growing staph aureus -Bactrim DS BID x1 week, per ID -seen by vascular surgery, no f/u needed -changed pain meds to home reigmen of percs, lyrica, gabapentin and trazodone for sleep -continue endocrinology recommendations for blood sugar control -hemoglobin A1c 10.3 -Lactic acid 2.7, 1.1 -CRP 2.0 -Foot x-ray shows shock tissue gas, foreign bodies. MRI negative for osteomyelitis, shows cellulitis -Venous Doppler negative, arterial Doppler reveals PVD -Consider vascular consult -cont home lisinopril for htn Diet: Diabetic Code: FULL DVT ppx: ALPS Problem List: 1. Cellulitis of foot, right Pain Ratin Pain Location: R foot Pain Goal: Pain 4 or less Pain Plan: pain pathway Tomorrow's Labs & Rationales: cbc Kvng COLLAZO,Judith 01/08/18 1432: Attending MD Review Statement Attending Statement Attending MD Statement: examined this patient, discuss w/resident/PA/ODD JOBS DAY WORKER, agreed w/resident/PA/ODD JOBS DAY WORKER, reviewed EMR data (avail), discussed with nursing, reviewed images, amended to note Attending Assessment/Plan: Patient seen and examined, came back from [place]. Overall doing better. His headache has improved. Vital Signs Date Time Temp Pulse Resp B/P B/P Pulse O2 O2 Flow FiO2 Mean Ox Delivery Rate 01/08 1423 98.1 64 20 112/60 94 Room Air 01/08 1239 70 122/60 01/08 1150 98.9 64 20 122/60 95 Room Air 01/08 0828 97.9 68 20 110/60 97 Room Air 01/08 0610 98.7 97 22 110/68 93 Room Air 01/07 2124 99.4 96 14 112/62 96 Room Air 01/07 1444 99.1 94 20 98/60 95 on exam; aox3, nad. cv; s1, s2, rrr resp; clear abd; soft, nt, bs+ ext; no edema right foot wrappoed in NEREYDA wrap. Laboratory Tests 01/08 06 Hematology CBC w Diff NO MAN DIFF REQ WBC (4.8 - 10.8 /CUMM) 11.9 H RBC (4.70 - 6.10 /CUMM) 4.07 L Hgb (14.0 - 18.0 G/DL) 12.7 L Hct (42 - 52 %) 36.8 L MCV (80.0 - 94.0 FL) 90.5 MCH (27.0 - 31.0 PG) 31.3 H MCHC (33.0 - 37.0 G/DL) 34.6 RDW (11.5 - 14.5 %) 13.7 Plt Count (130 - 400 /CUMM) 174 MPV (7.4 - 10.4 FL) 10.2 Gran % (42.2 - 75.2 %) 77.8 H Lymphocytes % (20.5 - 51.1 %) 15.8 L Monocytes % (1.7 - 9.3 %) 5.5 Eosinophils % (0 - 5 %) 0.6 Basophils % (0.0 - 2.0 %) 0.3 Absolute Granulocytes (1.4 - 6.5 /CUMM) 9.3 H Absolute Lymphocytes (1.2 - 3.4 /CUMM) 1.9 Absolute Monocytes (0.10 - 0.60 /CUMM) 0.7 H Absolute Eosinophils (0.0 - 0.7 /CUMM) 0.1 Absolute Basophils (0.0 - 0.2 /CUMM) 0 A/P; 47 y/o M with pmh sig for right foot osteomyelitis positive for MRSA, hypothyroidism, peripheral neuropathy, diabetic retinopathy s/p laser photocoagulation, IDDM, HTN, chronic back pain admitted with right foot plantar ulcer with question of osteoarthritis, hyperglycemia and uncontrolled diabetes. Arterial Doppler also consistent with peripheral artery disease. Went to operating room again today for debridement and wound closure. She was a very high this morning, patient on Levemir and insulin siding scale. Followed by endocrinology. By mouth Bactrim will be started today. Infectious disease. Final operating room cultures will need to be followed. Possible discharge over the weekend once cultures finalized and if patient stable. PT eval has been ordered and awaited.
[2018-01-08 08:28] VITALS: BP 110/60
[2018-01-08 08:37] LABS: ABSOLUTE BASOPHIL COUNT 0 /CUMM (0.0-0.2); ABSOLUTE EOSINOPHIL COUNT 0.1 /CUMM (0.0-0.7); ABSOLUTE GRANULOCYTE CT 9.3 /CUMM (1.4-6.5); ABSOLUTE LYMPH COUNT 1.9 /CUMM (1.2-3.4); ABSOLUTE MONOCYTE COUNT 0.7 /CUMM (0.10-0.60); BASOPHIL % 0.3 % (0.0-2.0); EOSINOPHIL % 0.6 % (0-5); GRANULOCYTE % 77.8 % (42.2-75.2); HEMATOCRIT 36.8 % (42-52); MEAN CORPUSCULAR HGB 31.3 PG (27.0-31.0); MEAN CORPUSCULAR HGB CONC 34.6 G/DL (33.0-37.0); MEAN CORPUSCULAR VOLUME 90.5 FL (80.0-94.0); MEAN PLATELET VOLUME 10.2 FL (7.4-10.4); PLATELET COUNT 174 /CUMM (130-400); RBC DISTRIBUTION WIDTH 13.7 % (11.5-14.5); RED BLOOD CELL CT 4.07 /CUMM (4.70-6.10); WHITE BLOOD CELL COUNT 11.9 /CUMM (4.8-10.8)
--- NOTE | 2018-01-08 09:15 | PN- Diabetes ---
Assessment/Plan Diabetes Assessment: 47 y/o female who was diagnosed with diabetes in his 30s. In addition, he has had a hx of right foot osteomyelitis positive for MRSA, hypothyroidism, peripheral neuropathy, diabetic retinopathy s/p laser treatment. At home, he was on Levemir 60 units twice a day and Humalog 12 units before meals. He presented with right foot open wound. He underwent incision and drainage of right foot on 01/06/2018. He was put on Levemir 40 units twice a day, Novolog coverage before meals ( 10 units when FSGs is between 80-150; 13 units when FSGs is between 151-200; etc) and Novolog coverage at bedtime. His FSGs were 341 and 218. He is scheduled to go to OR this morning. Levemir was cut down to 30 units last night and he was put on D5 NS at 50 ml/hour and Novolog coverage every 4 hours. His am FSG was 400. However, currently he is in O.R. Plan: repeat FSG stat after he is back from the OR. Please contact me to touch base and then his insulin regimen will be adjusted accordingly. Subjective Subjective: He is in OR. Objective Last 24 Hrs of Vital Signs/I&O Vital Signs Date Time Temp Pulse Resp B/P B/P Pulse O2 O2 Flow FiO2 Mean Ox Delivery Rate 01/08 0828 97.9 68 20 110/60 97 Room Air 01/08 0610 98.7 97 22 110/68 93 Room Air 01/07 2124 99.4 96 14 112/62 96 Room Air 01/07 1444 99.1 94 20 98/60 95 01/07 0919 68 132/80 Intake & Output 01/08 1600 01/08 0800 01/08 0000 Intake Total 460 520 Output Total Balance 460 520 Intake, IV 400 Intake, Oral 60 520 Patient 239 lb Weight Findings Pertinent Lab/Pelon Results: Laboratory Tests 01/08 06 Hematology CBC w Diff NO MAN DIFF REQ WBC (4.8 - 10.8 /CUMM) 11.9 H RBC (4.70 - 6.10 /CUMM) 4.07 L Hgb (14.0 - 18.0 G/DL) 12.7 L Hct (42 - 52 %) 36.8 L MCV (80.0 - 94.0 FL) 90.5 MCH (27.0 - 31.0 PG) 31.3 H MCHC (33.0 - 37.0 G/DL) 34.6 RDW (11.5 - 14.5 %) 13.7 Plt Count (130 - 400 /CUMM) 174 MPV (7.4 - 10.4 FL) 10.2 Gran % (42.2 - 75.2 %) 77.8 H Lymphocytes % (20.5 - 51.1 %) 15.8 L Monocytes % (1.7 - 9.3 %) 5.5 Eosinophils % (0 - 5 %) 0.6 Basophils % (0.0 - 2.0 %) 0.3 Absolute Granulocytes (1.4 - 6.5 /CUMM) 9.3 H Absolute Lymphocytes (1.2 - 3.4 /CUMM) 1.9 Absolute Monocytes (0.10 - 0.60 /CUMM) 0.7 H Absolute Eosinophils (0.0 - 0.7 /CUMM) 0.1 Absolute Basophils (0.0 - 0.2 /CUMM) 0
--- NOTE | 2018-01-08 10:13 | Operative Report ---
Operative/Inv Procedure Report Surgery Date: 01/08/18 Name of Procedure: I&D washout, right foot Primary closure of wound, right foot Pre-Operative Diagnosis: Infected puncture wound, right foot Post-Operative Diagnosis: Infected puncture wound, right foot Estimated Blood Loss: scant Surgeon/Quality Controller: Elver Magdaleno DPM Anesthesia: local monitored anesthesi, 18cc 0.5% Marcaine plain and 2% Lidocaine plain 50/50 mix Specimens: None Microbiology: None Tourniquet: None Complications: None Condition: Stable Operative Indication: Pt had exploratory I&D yesterday to treat puncture wound with small associated fluid collection and necrotic tissue. Today we are washing this wound out again and primarily closing the incision. Operative/Procedure Note Note: After the right foot was prepped and draped in the usual sterile manner, the right foot was inspected and attention was directed to a 4cm incision and plantar puncture wound. This wound was debrided gently with a rongeur, but the surrounding tissues were otherwise all viable. A 3L combination of normal sline and bacitracin solution was used to irrigate the wound, and the wound was closed with a combination of 4-0 nylon interrupted horizontal mattress sutures for intact skin and 4-0 vicryl centrally where the subcutaneous tissues were exposed. The wound was dressed with Adaptic, 4x4 gauze, 3 ABD pads, Kerlix and an Brian bandage. Discharge Disposition: PACU Additional Comments: The patient was escorted to the PACU in NAD, AVSS, NVSI. Provided his pain in controlled, his serum glucose is optimized, PT has assessed him to have a stable gait with or without crutches, he is clear for discharge with a short course of Gram+ PO prophylaxis. He should f/u in the [facility] wound care center this coming Friday 01/12.
--- NOTE | 2018-01-08 10:40 | PN- Student ---
Subjective Subjective: Patient is feeling well. He states that he had a good night sleep and is not in pain. However, he keeps having chills. Objective Objective: Vital Signs Date Time Temp Pulse Resp B/P B/P Pulse O2 O2 Flow FiO2 Mean Ox Delivery Rate 01/08 0828 97.9 68 20 110/60 97 Room Air 01/08 0610 98.7 97 22 110/68 93 Room Air 01/07 2124 99.4 96 14 112/62 96 Room Air 01/07 1444 99.1 94 20 98/60 95 ED Intake and Output 01/08 0000 01/07 1200 Intake Total 1430 120 Output Total Balance 1430 120 Intake, IV 10 Intake, Oral 1420 120 Patient 239 lb 239 lb Weight Patient is cooperative and chatty. He is in no distress, alert and oriented x3. His blood sugar levels were 400 at 6am. He is going to OR for closure of wounds. Results Results: Laboratory Tests 01/08/18 0627: CBC w Diff NO MAN DIFF REQ, RBC 4.07 L, MCV 90.5, MCH 31.3 H, MCHC 34.6, RDW 13.7, MPV 10.2, Gran % 77.8 H, Lymphocytes % 15.8 L, Monocytes % 5.5, Eosinophils % 0.6, Basophils % 0.3, Absolute Granulocytes 9.3 H, Absolute Lymphocytes 1.9, Absolute Monocytes 0.7 H, Absolute Eosinophils 0.1, Absolute Basophils 0 01/07/18 0630: Anion Gap 12, Estimated GFR > 60, BUN/Creatinine Ratio 16.7, CBC w Diff NO MAN DIFF REQ, RBC 4.33 L, MCV 89.8, MCH 30.6, MCHC 34.1, RDW 13.6, MPV 10.0, Gran % 75.3 H, Lymphocytes % 16.9 L, Monocytes % 6.3, Eosinophils % 1.2, Basophils % 0.3, Absolute Granulocytes 7.7 H, Absolute Lymphocytes 1.7, Absolute Monocytes 0.6, Absolute Eosinophils 0.1, Absolute Basophils 0 01/05/182154: Hemoglobin A1c 10.3 H 01/05/18 2030: Lactic Acid 1.1 01/05/181924: Urine Color YEL, Urine Clarity CLEAR, Urine pH 6.5, Ur Specific [place] 1.010, Urine Protein NEG, Urine Ketones NEG, Urine Nitrite NEG, Urine Bilirubin NEG, Urine Urobilinogen 1.0, Ur Leukocyte Esterase NEG, Ur Microscopic EXAM NOT REQUIRED, Urine Hemoglobin NEG, Urine Glucose >=1000 H 01/05/18 1825: Anion Gap 16, Estimated GFR > 60, BUN/Creatinine Ratio 22.0, Glucose 543 *H, Lactic Acid 2.7 H, Calcium 9.3, Total Bilirubin 0.9, AST 30, ALT 35, Alkaline Phosphatase 103, Troponin I < 0.01, C-Reactive Prot, Quant 2.0 H, Total Protein 8.2, Albumin 4.4, Globulin 3.8, Albumin/Globulin Ratio 1.2, CBC w Diff NO MAN DIFF REQ, RBC 4.76, MCV 90.0, MCH 31.1 H, MCHC 34.5, RDW 13.8, MPV 10.2, Gran % 70.5, Lymphocytes % 23.0, Monocytes % 4.5, Eosinophils % 1.5, Basophils % 0.5, Absolute Granulocytes 5.2, Absolute Lymphocytes 1.7, Absolute Monocytes 0.3, Absolute Eosinophils 0.1, Absolute Basophils 0, ESR W[place]gren 37 H Microbiology 01/06 1510 EXTREMITIE: Gross Specimen Examination - RES STAPH AUREUS 01/06 1510 EXTREMITIE: Gram Stain - RES 01/05 1903 BLOOD: Blood Culture - RES 01/05 1845 BLOOD: Blood Culture - RES Assessment/Plan Assessment: Mendoza Dent is a 47 y/o male with a past medical history significant for 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 He was admitted because of right plantar open wounds that were not healing. He was taken to OR for I/D on 01/06 and is currently at the OR again for wound closure. 1. R foot ulcer - Follow baggage agent supervisor recommendations - Follow up culture results - Continue pain medications 2. Increased blood sugar levels - Endo consult - Monitor blood sugar levels - Adjust insulin doses - Maintain diabetic diet
[2018-01-08 11:50] VITALS: BP 122/60
--- NOTE | 2018-01-08 12:55 | PN- Infect Dx ---
Subjective Subjective: Afebrile without complaints Objective Last 24 Hrs of Vital Signs/I&O Vital Signs Date Time Temp Pulse Resp B/P B/P Pulse O2 O2 Flow FiO2 Mean Ox Delivery Rate 01/08 1239 70 122/60 01/08 1150 98.9 64 20 122/60 95 Room Air 01/08 0828 97.9 68 20 110/60 97 Room Air 01/08 0610 98.7 97 22 110/68 93 Room Air 01/07 2124 99.4 96 14 112/62 96 Room Air 01/07 1444 99.1 94 20 98/60 95 Intake & Output 01/08 1600 01/08 0800 01/08 0000 Intake Total 460 520 Output Total Balance 460 520 Intake, IV 400 Intake, Oral 60 520 Patient 239 lb Weight Physical Exam Other Physical Findings: He appears comfortable in no acute distress Extremities right foot dressing intact Results Last 24 Hours of Lab Results: Laboratory Tests 01/08 627 Hematology CBC w Diff NO MAN DIFF REQ WBC (4.8 - 10.8 /CUMM) 11.9 H RBC (4.70 - 6.10 /CUMM) 4.07 L Hgb (14.0 - 18.0 G/DL) 12.7 L Hct (42 - 52 %) 36.8 L MCV (80.0 - 94.0 FL) 90.5 MCH (27.0 - 31.0 PG) 31.3 H MCHC (33.0 - 37.0 G/DL) 34.6 RDW (11.5 - 14.5 %) 13.7 Plt Count (130 - 400 /CUMM) 174 MPV (7.4 - 10.4 FL) 10.2 Gran % (42.2 - 75.2 %) 77.8 H Lymphocytes % (20.5 - 51.1 %) 15.8 L Monocytes % (1.7 - 9.3 %) 5.5 Eosinophils % (0 - 5 %) 0.6 Basophils % (0.0 - 2.0 %) 0.3 Absolute Granulocytes (1.4 - 6.5 /CUMM) 9.3 H Absolute Lymphocytes (1.2 - 3.4 /CUMM) 1.9 Absolute Monocytes (0.10 - 0.60 /CUMM) 0.7 H Absolute Eosinophils (0.0 - 0.7 /CUMM) 0.1 Absolute Basophils (0.0 - 0.2 /CUMM) 0 Last 24 Hours of [place] Results: OR culture January 06 labeled right foot deep tissue positive for Staph aureus, sensitivities pending Assessment/Plan ID Impression: Stable, with temperatures and white blood cell count remaining normal, off antibiotics status post repeat washout with primary closure of a puncture wound of the right foot earlier today. The OR culture from his initial I&D is going Staph aureus; therefore he can be treated with a short course of antibiotics, directed against MRSA given his history. Suggestion: 1. Follow-up final OR culture 2. Begin Bactrim DS 1 po every 12 hours for 1 week pending above
--- NOTE | 2018-01-08 14:05 | Patient Discharge Instructions ---
Discharge Instructions General Discharge Information Special Instructions: Please follow up with your pcp. Please follow up at the wound care center Friday January 12, 2018 @ 1130am. [phone] Please follow up with Dr. Griffith (endocrinology). ThursdayFebruary 01 1:30PM Please take your medications as perscribed. Please get a weekly ESR while on antibitoics. Here is your instructions for wound care: - wound care recommendations are as follows: Irrigation with 200 mL of normal saline Packing with half-inch to 1 inch plain packing, whichever is available. Dry sterile dressing, with Vaseline gauze either Adaptic or Xeroform over the dorsal sutures and in the interspace. - weightbearing status is: Partial weightbearing right foot, with flat surgical shoe and surgical dressing. Weightbearing as tolerated left foot, both with the assistance of a walker. - follow-up should be: [facility] conference of wound care center ThursdayJanuary 19, patient is to call and make an appointment. Acute Coronary Syndrome Inclusion Criteria At DC or during hospital stay patient has or had the following: ACS DIAGNOSIS No Discharge Core Measures Meds if any: Prescribed or Continued at Discharge Meds if any: NOT Prescribed or Continued at Discharge Congestive Heart Failure Inclusion Criteria At DC or during hospital stay patient has or had the following: CHF DIAGNOSIS No Discharge Core Measures Meds if any: Prescribed or Continued at Discharge Meds if any: NOT Prescribed or Continued at Discharge Cerebrovascular accident Inclusion Criteria At DC or during hospital stay patient has or had the following: CVA/TIA Diagnosis No Discharge Core Measures Meds if any: Prescribed or Continued at Discharge Meds if any: NOT Prescribed or Continued at Discharge Venous thromboembolism Inclusion Criteria VTE Diagnosis No VTE Type NONE VTE Confirmed by (Test) NONE Discharge Core Measures - Per Current guidelines, there needs to be overlap - treatment for the first 5 days of Warfarin therapy. - If discharged on Warfarin prior to 5 days of - overlap therapy, the patient will need to be - assessed for post discharge needs including - *Post discharge parental anticoagulation - *Warfarin and/or parental anticoagulation education - *Follow up date to check INR post discharge At least 5 days overlap therapy as Inpatient No Meds if any: Prescribed or Continued at Discharge Note: Overlap Therapy is Warfarin and Anticoagulant Meds if any: NOT Prescribed or Continued at Discharge
[2018-01-08 14:23] VITALS: BP 112/60
[2018-01-08] MEDS ORDERED: LEVEMIR100 UNIT/1 SC (14:46)
[2018-01-08] MEDS ORDERED: SULFAMETHOXAZO1 EAC1 PO (14:46)
[2018-01-08 22:00] VITALS: BP 104/67
[2018-01-09 06:49] VITALS: BP 106/68
[2018-01-09 08:29] LABS: ABSOLUTE BASOPHIL COUNT 0 /CUMM (0.0-0.2); ABSOLUTE EOSINOPHIL COUNT 0.1 /CUMM (0.0-0.7); ABSOLUTE GRANULOCYTE CT 11.3 /CUMM (1.4-6.5); ABSOLUTE LYMPH COUNT 1.7 /CUMM (1.2-3.4); ABSOLUTE MONOCYTE COUNT 0.9 /CUMM (0.10-0.60); BASOPHIL % 0.2 % (0.0-2.0); EOSINOPHIL % 0.4 % (0-5); GRANULOCYTE % 80.9 % (42.2-75.2); HEMATOCRIT 33.9 % (42-52); MEAN CORPUSCULAR HGB 30.8 PG (27.0-31.0); MEAN CORPUSCULAR HGB CONC 34.3 G/DL (33.0-37.0); MEAN CORPUSCULAR VOLUME 89.7 FL (80.0-94.0); MEAN PLATELET VOLUME 9.7 FL (7.4-10.4); PLATELET COUNT 162 /CUMM (130-400); RBC DISTRIBUTION WIDTH 13.6 % (11.5-14.5); RED BLOOD CELL CT 3.78 /CUMM (4.70-6.10); WHITE BLOOD CELL COUNT 13.9 /CUMM (4.8-10.8)
--- NOTE | 2018-01-09 08:53 | PN- Housestaff ---
See Addendum Subjective Follow-up For: R foot wound staph aureus positive Subjective: Acute events overnight. Patient states a fever 103.3. His headaches are getting worse due to the fever. Review of Systems Constitutional: Reports: see HPI. Objective Last 24 Hrs of Vital Signs/I&O Vital Signs Date Time Temp Pulse Resp B/P B/P Pulse O2 O2 Flow FiO2 Mean Ox Delivery Rate 01/09 0848 85 112/64 01/09 0649 99.3 94 18 106/68 94 01/08 2300 99.9 01/08 2259 99.9 01/08 2200 103.3 01/08 2200 102.8 105 18 104/67 92 Room Air 01/08 1903 103.3 01/08 1804 100.9 01/08 1800 100.9 01/08 1423 98.1 64 20 112/60 94 Room Air Intake & Output 01/09 1600 01/09 0800 01/09 0000 Intake Total 400 600 Output Total 350 Balance 50 600 Intake, Oral 400 600 Output, Urine 350 Physical Exam General Appearance: Alert, Oriented X3, Cooperative Cardiovascular: tachycardia Lungs: Clear to Auscultation, Normal Air Movement Abdomen: Normal Bowel Sounds, Soft, No Tenderness Extremities: R foot covered in dressing Vascular: 2+ radial pulses Current Medications: Current Medications Sig/[place] Start time Last Medication Dose Route Stop Time Status Admin Acetaminophen 1,000 MG ONCE ONE 01/08 2045 DC 01/08 N/A 1 UNIT IV 01/08 2059 2200 Acetaminophen 325 MG Q6P PRN 01/08 1800 AC 01/08 PO 1804 Atorvastatin Calcium 20 MG AT BEDTIME 01/06 2200 AC 01/08 PO 2210 Heparin Sodium 5,000 UNIT Q8 01/08 1445 AC 01/09 (Porcine) SC 0500 Insulin Aspart 0 TIDAC/HS 01/09 1700 AC SC Insulin Aspart 0 TIDAC 01/08 1700 DC 01/09 SC 1213 Insulin Detemir 50 UNITS BID 01/09 2100 AC SC Insulin Detemir 40 UNITS BID 01/08 1215 DC 01/09 SC 0846 Levothyroxine Sodium 0.1 MG DAILY AC 01/06 0700 AC 01/09 PO 0500 Lisinopril 5 MG DAILY 01/06 1000 AC 01/09 PO 0848 Morphine Sulfate 2 MG Q6P PRN 01/06 1230 AC 01/08 IV 2024 Oxycodone/ 1 TAB Q6P PRN 01/07 0900 AC 01/09 Acetaminophen PO 1015 Pregabalin 150 MG BID 01/07 0900 AC 01/09 PO 0845 Trazodone HCl 50 MG AT BEDTIME 01/07 2100 AC 01/08 PO 2211 Trimethoprim/ 1 TAB BID 01/08 1415 AC 01/09 Sulfamethoxazole PO 0845 Last 24 Hrs of Lab/Pelon Results Last 24 Hrs of Labs/Mics: Laboratory Tests 01/09/18 0625: CBC w Diff NO MAN DIFF REQ, RBC 3.78 L, MCV 89.7, MCH 30.8, MCHC 34.3, RDW 13.6 , MPV 9.7, Gran % 80.9 H, Lymphocytes % 12.2 L, Monocytes % 6.3, Eosinophils % 0.4, Basophils % 0.2, Absolute Granulocytes 11.3 H, Absolute Lymphocytes 1.7, Absolute Monocytes 0.9 H, Absolute Eosinophils 0.1, Absolute Basophils 0 Microbiology 01/09 0545 URINE ROUT: Urine Culture - RECD 01/08 2217 BLOOD: Blood Culture - RES 01/09 2112 BLOOD: Blood Culture - RES Assessment/Plan Assessment: Mr. Dent is a 47 yo m with a PMH significant for right foot osteomyelitis positive for MRSA, hypothyroidism, peripheral neuropathy, diabetic retinopathy s /p laser photocoagulation, IDDM, HTN, chronic back pain after an occupational injury presenting for right foot plantar ulcer with possible cellulitis vs abscess s/p debridement. Problems: R foot ulcer s/p injury with ?cellulitis/osteo Plan: -now having spiking fevers, f/u repeat panculture -Switch from Bactrim to vancomycin -s/p I+D and washout with primary closure -OR cx growing staph aureus -seen by vascular surgery, no f/u needed -changed pain meds to home reigmen of percs, lyrica, gabapentin and trazodone for sleep -continue endocrinology recommendations for blood sugar control -hemoglobin A1c 10.3 -Lactic acid 2.7, 1.1 -CRP 2.0 -Foot x-ray shows shock tissue gas, foreign bodies. MRI negative for osteomyelitis, shows cellulitis -Venous Doppler negative, arterial Doppler reveals PVD -Consider vascular consult -cont home lisinopril for htn Diet: Diabetic Code: FULL DVT ppx: ALPS Problem List: 1. Wound, open, foot Pain Ratin Pain Location: foot, headache Pain Goal: Pain 4 or less Pain Plan: home regimen Tomorrow's Labs & Rationales: cbc bep
--- NOTE | 2018-01-09 13:06 | PN- Diabetes ---
Assessment/Plan Diabetes Assessment: 47 y/o female who was diagnosed with diabetes in his 30s. In addition, he has had a hx of right foot osteomyelitis positive for MRSA, hypothyroidism, peripheral neuropathy, diabetic retinopathy s/p laser treatment. At home, he was on Levemir 60 units twice a day and Humalog 12 units before meals. He presented with right foot open wound. He underwent foot procedure twice. His Tmax was 103.3. He was put on Levemir 40 units twice a day; Novolog coverage before meals. His FSGs were 256, 195, 363 and 289. Plan: 1. increase Levemir to 50 units twice a day; 2. adjust Novolog coverage before meals and add Novolog coverage at bedtime; detail see the inpatient DM orders; 3. monitor FSGs. will follow. Inpatient Diabetes Orders Before Each Meal: Bolus Insulin: Novolog < 80 mg/dl: no coverage 80-100 mg/dl: 12 units 101-120 mg/dl: 12 units 121-150 mg/dl: 12 units 151-200 mg/dl: 16 units 201-250 mg/dl: 18 units 251-300 mg/dl: 20 units 301-350 mg/dl: 22 units 351-400 mg/dl: 24 units > 400 mg/dl: 26 units Bedtime: Bolus Insulin: Novolog < 80 mg/dl: no coverage 80-100 mg/dl: no coverage 101-120 mg/dl: no coverage 121-150 mg/dl: no coverage 151-200 mg/dl: no coverage 201-250 mg/dl: no coverage 251-300 mg/dl: 4 units 301-350 mg/dl: 6 units 351-400 mg/dl: 8 units > 400 mg/dl: 10 units Subjective Subjective: He feels less pain on his foot. Objective Last 24 Hrs of Vital Signs/I&O Vital Signs Date Time Temp Pulse Resp B/P B/P Pulse O2 O2 Flow FiO2 Mean Ox Delivery Rate 01/09 0848 85 112/64 01/09 0649 99.3 94 18 106/68 94 01/08 2300 99.9 01/08 2259 99.9 01/08 2200 103.3 01/08 2200 102.8 105 18 104/67 92 Room Air 01/08 1903 103.3 01/08 1804 100.9 01/08 1800 100.9 01/08 1423 98.1 64 20 112/60 94 Room Air Intake & Output 01/09 1600 01/09 0800 01/09 0000 Intake Total 400 600 Output Total 350 Balance 50 600 Intake, Oral 400 600 Output, Urine 350 Findings Pertinent Lab/Pelon Results: Laboratory Tests 01/09 0625 Hematology CBC w Diff NO MAN DIFF REQ WBC (4.8 - 10.8 /CUMM) 13.9 H RBC (4.70 - 6.10 /CUMM) 3.78 L Hgb (14.0 - 18.0 G/DL) 11.6 L Hct (42 - 52 %) 33.9 L MCV (80.0 - 94.0 FL) 89.7 MCH (27.0 - 31.0 PG) 30.8 MCHC (33.0 - 37.0 G/DL) 34.3 RDW (11.5 - 14.5 %) 13.6 Plt Count (130 - 400 /CUMM) 162 MPV (7.4 - 10.4 FL) 9.7 Gran % (42.2 - 75.2 %) 80.9 H Lymphocytes % (20.5 - 51.1 %) 12.2 L Monocytes % (1.7 - 9.3 %) 6.3 Eosinophils % (0 - 5 %) 0.4 Basophils % (0.0 - 2.0 %) 0.2 Absolute Granulocytes (1.4 - 6.5 /CUMM) 11.3 H Absolute Lymphocytes (1.2 - 3.4 /CUMM) 1.7 Absolute Monocytes (0.10 - 0.60 /CUMM) 0.9 H Absolute Eosinophils (0.0 - 0.7 /CUMM) 0.1 Absolute Basophils (0.0 - 0.2 /CUMM) 0
[2018-01-09 20:59] VITALS: BP 120/69
[2018-01-10 06:26] VITALS: BP 108/60
[2018-01-10 08:35] LABS: ABSOLUTE BASOPHIL COUNT 0 /CUMM (0.0-0.2); ABSOLUTE EOSINOPHIL COUNT 0.2 /CUMM (0.0-0.7); ABSOLUTE GRANULOCYTE CT 6.6 /CUMM (1.4-6.5); ABSOLUTE LYMPH COUNT 1.6 /CUMM (1.2-3.4); ABSOLUTE MONOCYTE COUNT 0.7 /CUMM (0.10-0.60); BASOPHIL % 0.4 % (0.0-2.0); GRANULOCYTE % 72.8 % (42.2-75.2); HEMATOCRIT 34.3 % (42-52); MEAN CORPUSCULAR HGB 30.6 PG (27.0-31.0); MEAN CORPUSCULAR VOLUME 89.9 FL (80.0-94.0); MEAN PLATELET VOLUME 9.8 FL (7.4-10.4); PLATELET COUNT 161 /CUMM (130-400); RBC DISTRIBUTION WIDTH 13.3 % (11.5-14.5); RED BLOOD CELL CT 3.82 /CUMM (4.70-6.10)
--- NOTE | 2018-01-10 10:33 | PN- Housestaff ---
Subjective Follow-up For: Foot wound gorwing staph and GBS Subjective: No acute events overnight. Fevers improved. Headache also imrpoved. Some R foot pain. Review of Systems Constitutional: Reports: see HPI. Objective Last 24 Hrs of Vital Signs/I&O Vital Signs Date Time Temp Pulse Resp B/P B/P Pulse O2 O2 Flow FiO2 Mean Ox Delivery Rate 01/10 0843 90 118/66 01/10 0626 99.4 90 18 108/60 95 Room Air 01/09 2313 99.2 01/09 2300 99.2 01/09 2106 100.2 01/09 2059 100.2 95 20 120/69 96 Room Air 01/09 1654 100.4 Intake & Output 01/10 1600 01/10 0800 01/10 0000 Intake Total 500 1200 Output Total 450 Balance 50 1200 Intake, IV 250 300 Intake, Oral 250 900 Number 0 Bowel Movements Output, Urine 450 Physical Exam General Appearance: Alert, Oriented X3, Cooperative, No Acute Distress Cardiovascular: Regular Rate, Normal S1, Normal S2 Lungs: Clear to Auscultation, Normal Air Movement Abdomen: Normal Bowel Sounds, Soft, No Tenderness Extremities: R foot covered Assessment/Plan Assessment: 47 yo m with a PMH significant for right foot osteomyelitis positive for MRSA, hypothyroidism, peripheral neuropathy, diabetic retinopathy s/p laser photocoagulation, IDDM, HTN, chronic back pain after an occupational injury presenting for right foot plantar ulcer with possible cellulitis vs abscess s/p debridement. Problems: R foot ulcer s/p injury with ?cellulitis/osteo Plan: -improved headaches and fevers after switch from Bactrim to vancomycin -f/u ID recommendations regarding abx -s/p I+D and washout with primary closure -OR cx growing staph aureus and GBS -seen by vascular surgery, no f/u needed -changed pain meds to home reigmen of percs, lyrica, gabapentin and trazodone for sleep -continue endocrinology recommendations for blood sugar control -hemoglobin A1c 10.3 -Lactic acid 2.7, 1.1 -CRP 2.0 -Foot x-ray shows shock tissue gas, foreign bodies. MRI negative for osteomyelitis, shows cellulitis -Venous Doppler negative, arterial Doppler reveals PVD -Consider vascular consult -cont home lisinopril for htn Diet: Diabetic Code: FULL DVT ppx: heparin subq Problem List: 1. Wound, open, foot Pain Ratin Pain Location: R foot Pain Goal: Pain 4 or less Pain Plan: Pain pathway Tomorrow's Labs & Rationales: cbc
--- NOTE | 2018-01-10 11:45 | PN- Infect Dx ---
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 Admitted on January 05 after presenting to the emergency room with an ulcer on the plantar aspect of his right foot, which he states began as a blister 2-1/2 weeks prior to admission after walking 1 mile in sandals, associated with pain, swelling, drainage and sweats. X-ray of the right foot revealed a question of soft tissue gas along the distal lateral aspect of the foot with possible punctate foreign body densities in the plantar soft tissues. He underwent an MRI of the right foot, which was negative for any collection or osteomyelitis. He was taken to the OR 01/06 and 01/08 for an I&D, with no evidence of any infection or foreign body. The patient spiked a fever and had an elevation in his white blood cell count on January 09 while on Bactrim. Intraoperative cultures collected on January 06 are growing staph aureus resistant to azithromycin, clindamycin and erythromycin otherwise sensitive. The patient was started on vancomycin, fevers resolved and white blood cell count normalized. The patient is currently feeling much better and has no complaints. Review of Systems Constitutional: Reports: no symptoms. EENTM: Reports: no symptoms. Cardiovascular: Reports: no symptoms. Respiratory: Reports: no symptoms. Gastrointestinal: Reports: no symptoms. Genitourinary: Reports: no symptoms. Musculoskeletal: Reports: no symptoms. Skin: Reports: see HPI. Neurological/Psychological: Reports: no symptoms. Objective Last 24 Hrs of Vital Signs/I&O Vital Signs Date Time Temp Pulse Resp B/P B/P Pulse O2 O2 Flow FiO2 Mean Ox Delivery Rate 01/10 0843 90 118/66 01/10 0626 99.4 90 18 108/60 95 Room Air 01/09 2313 99.2 01/09 2300 99.2 01/09 2106 100.2 01/099 100.2 95 20 120/69 96 Room Air 01/09 1654 100.4 Intake & Output 01/10 1600 01/10 0800 01/10 0000 Intake Total 500 1200 Output Total 450 Balance 50 1200 Intake, IV 250 300 Intake, Oral 250 900 Number 0 Bowel Movements Output, Urine 450 Physical Exam General Appearance: well developed/nourished Head: atraumatic, normal appearance Ears, Nose, Throat: normal pharynx, normal ENT inspection Neck: normal inspection, supple, full range of motion Cardiovascular: regular rate/rhythm Respiratory: normal breath sounds, chest non-tender, no respiratory distress, lungs clear Abdomen: normal bowel sounds, soft, non-tender Extremities: right foot is clean, clear and dressed Neurologic/Psychiatric: awake, alert, oriented x 3 Results Last 24 Hours of Lab Results: Laboratory Tests 01/10 0805 Chemistry Sodium (137 - 145 mmol/L) 137 Potassium (3.5 - 5.1 mmol/L) 3.7 Chloride (98 - 107 mmol/L) 103 Carbon Dioxide (22 - 30 mmol/L) 23 Anion Gap (5 - 16) 12 BUN (9 - 20 mg/dL) 15 Creatinine (0.7 - 1.2 mg/dL) 0.7 Estimated GFR (>60 ml/min) > 60 BUN/Creatinine Ratio (7 - 25 %) 21.4 Hematology CBC w Diff NO MAN DIFF REQ WBC (4.8 - 10.8 /CUMM) 9.0 RBC (4.70 - 6.10 /CUMM) 3.82 L Hgb (14.0 - 18.0 G/DL) 11.7 L Hct (42 - 52 %) 34.3 L MCV (80.0 - 94.0 FL) 89.9 MCH (27.0 - 31.0 PG) 30.6 MCHC (33.0 - 37.0 G/DL) 34.0 RDW (11.5 - 14.5 %) 13.3 Plt Count (130 - 400 /CUMM) 161 MPV (7.4 - 10.4 FL) 9.8 Gran % (42.2 - 75.2 %) 72.8 Lymphocytes % (20.5 - 51.1 %) 17.3 L Monocytes % (1.7 - 9.3 %) 7.5 Eosinophils % (0 - 5 %) 2.0 Basophils % (0.0 - 2.0 %) 0.4 Absolute Granulocytes (1.4 - 6.5 /CUMM) 6.6 H Absolute Lymphocytes (1.2 - 3.4 /CUMM) 1.6 Absolute Monocytes (0.10 - 0.60 /CUMM) 0.7 H Absolute Eosinophils (0.0 - 0.7 /CUMM) 0.2 Absolute Basophils (0.0 - 0.2 /CUMM) 0 Last 24 Hours of Pelon Results: SPDESC: FOOT R Teresa COLLAZO,Ishmael Simons ORDERED: XTRMOR COMMENT: 4 PEA-SIZE SAMPLES OF RIGHT FOOT TISSUE RECEIVED IN A STERILE CUP ADDITIONAL INFORMATION: DEEP TISSUE CULTURE RIGHT FOOT Procedure Result > GRAM STAIN Final 01/07/18-1514 WHITE BLOOD CELLS NONE OTHER NO ORGANISMS SEEN > EXTREMITIES OR SPECIMEN Final 01/09/18-1309 Light growth of: 1.STAPH AUREUS ISOLATED SCANT GROWTH OF: 2. BETA STREP GROUP B Called to/Readback by SARI by [email or web address] 01/08/18 0932 Penicillin and Ampicillin are drugs of choice for beta-hemolytic streptococcal infections. Susceptibility testing of penicillins and other beta-lactams are not routinely performed because non-susceptible isolates have only rarely been reported. Note: If patient is allergic to Penicillin, the laboratory can perform Clindamycin testing upon request. Please call within 5 days of final report. 1. STAPH AUREUS RX ABN ------ --- 1. 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 The patient spiked a fever and had an elevation in his white blood cell count on January 09 while on Bactrim. Intraoperative cultures collected on January 06 are growing staph aureus resistant to azithromycin, clindamycin and erythromycin otherwise sensitive. The patient was started on vancomycin, fevers resolved and white blood cell count normalized. The patient has a methicillin sensitive staph aureus is the likely cause of his infection. He does have a history of MRSA for year ago but there is no indication that this infection is comp catered by the resistant organism. Would favor transitioning the patient for mitomycin to cefazolin and consider discharging the patient on a cephalosporin. Suggestion: 1. Discontinue vancomycin 2. Start cefazolin 1 g IV every 8 hours 3. Consider discharging on cephalexin in a.m. to complete a 7-10 day course Please call with any questions [phone]
--- NOTE | 2018-01-10 12:14 | PN- Podiatry ---
Subjective Subjective: 47-year-old uncontrolled diabetic male with PVD seen and evaluated at bedside 2 days removed from a revisional incision and drainage and washout with delayed primary closure of a infected puncture wound of the right foot. The patient spiked 103.3 Fahrenheit that evening, was switched from Bactrim to IV vancomycin , and has been incrementally resolving both a new onset leukocytosis and this fever since. The patient reports that the pain in his legs from a few days ago has relieved significantly with the onset of Lyrica. He also reports that he feels much better than he did on Thursday during my exam. He is currently planned for discharge tomorrow. Review of Systems: A 14 point review of systems was performed, and was found to be negative apart from the patient's complaints described above in the history of present illness. Objective Vital Signs and I&Os Vital Signs Date Time Temp Pulse Resp B/P B/P Pulse O2 O2 Flow FiO2 Mean Ox Delivery Rate 01/10 0843 90 118/66 01/10 0626 99.4 90 18 108/60 95 Room Air 01/09 2313 99.2 01/09 2300 99.2 01/09 2106 100.2 01/09 2059 100.2 95 20 120/69 96 Room Air 01/09 1654 100.4 Intake & Output 01/10 1600 01/10 0800 01/10 0000 01/09 1600 01/09 0000 Intake Total 500 1200 720 400 600 Output Total 450 350 Balance 50 1200 720 50 600 Intake, IV 250 300 Intake, Oral 250 900 720 400 600 Number 0 Bowel Movements Output, Urine 450 350 Physical Exam: Neurovascular status is unchanged. Musculoskeletal exam is unchanged. The incision and suture line is clean dry and intact, the wound now has a completely granular base and normal skin at the margins. There is no drainage. There is no longer any tenderness upon palpation of the foot where there had been on the date of admission. There is some mild calor and faint erythema consistent with reactive changes after multiple surgeries. There are no bullous changes, there is no ecchymosis, there is no fluctuance, there is no crepitus, there is no necrosis of skin. Expression of the fascial planes around the wound yields no drainage. Current Medications: Current Medications Sig/[place] Start time Last Medication Dose Route Stop Time Status Admin Acetaminophen 325 MG .STK-MED ONE 01/09 2103 DC PO 01/09 210 Acetaminophen 325 MG Q6P PRN 01/08 1800 AC 01/09 PO 210 Atorvastatin Calcium 20 MG AT BEDTIME 01/06 2200 AC 01/09 PO 2105 Heparin Sodium 5,000 UNIT Q8 01/08 1445 AC 01/10 (Porcine) SC 0537 Insulin Aspart 0 TIDAC/HS 01/09 1700 AC 01/10 SC 0845 Insulin Aspart 0 TIDAC 01/08 1700 DC 01/09 SC 1213 Insulin Detemir 50 UNITS BID 01/09 2100 AC 01/10 SC 0844 Insulin Detemir 40 UNITS BID 01/08 1215 DC 01/09 SC 0846 Levothyroxine Sodium 0.1 MG DAILY AC 01/06 0700 AC 01/10 PO 0537 Lisinopril 5 MG DAILY 01/06 1000 AC 01/10 PO 0843 Morphine Sulfate 2 MG Q6P PRN 01/06 1230 AC 01/08 IV 2024 Oxycodone/ 1 TAB Q6P PRN 01/07 0900 AC 01/10 Acetaminophen PO 0844 Potassium Chloride 40 MEQ ONCE ONE 01/10 1045 DC PO 01/10 1046 Pregabalin 150 MG BID 01/07 0900 AC 01/10 PO 0844 Trazodone HCl 50 MG AT BEDTIME 01/07 2100 AC 01/09 PO 2105 Trimethoprim/ 1 TAB BID 01/08 1415 DC 01/09 Sulfamethoxazole PO 0845 Vancomycin HCl 1,000 MG Q12 01/09 2100 AC 01/10 Dextrose/Water 250 ML IV 0845 Results Last 48 Hours of Labs: Laboratory Tests 01/10 01/09 0805 0625 Chemistry Sodium (137 - 145 mmol/L) 137 Potassium (3.5 - 5.1 mmol/L) 3.7 Chloride (98 - 107 mmol/L) 103 Carbon Dioxide (22 - 30 mmol/L) 23 Anion Gap (5 - 16) 12 BUN (9 - 20 mg/dL) 15 Creatinine (0.7 - 1.2 mg/dL) 0.7 Estimated GFR (>60 ml/min) > 60 BUN/Creatinine Ratio (7 - 25 %) 21.4 Hematology CBC w Diff NO MAN DIFF REQ NO MAN DIFF REQ WBC (4.8 - 10.8 /CUMM) 9.0 13.9 H RBC (4.70 - 6.10 /CUMM) 3.82 L 3.78 L Hgb (14.0 - 18.0 G/DL) 11.7 L 11.6 L Hct (42 - 52 %) 34.3 L 33.9 L MCV (80.0 - 94.0 FL) 89.9 89.7 MCH (27.0 - 31.0 PG) 30.6 30.8 MCHC (33.0 - 37.0 G/DL) 34.0 34.3 RDW (11.5 - 14.5 %) 13.3 13.6 Plt Count (130 - 400 /CUMM) 161 162 MPV (7.4 - 10.4 FL) 9.8 9.7 Gran % (42.2 - 75.2 %) 72.8 80.9 H Lymphocytes % (20.5 - 51.1 %) 17.3 L 12.2 L Monocytes % (1.7 - 9.3 %) 7.5 6.3 Eosinophils % (0 - 5 %) 2.0 0.4 Basophils % (0.0 - 2.0 %) 0.4 0.2 Absolute Granulocytes (1.4 - 6.5 /CUMM) 6.6 H 11.3 H Absolute Lymphocytes (1.2 - 3.4 /CUMM) 1.6 1.7 Absolute Monocytes (0.10 - 0.60 /CUMM) 0.7 H 0.9 H Absolute Eosinophils (0.0 - 0.7 /CUMM) 0.2 0.1 Absolute Basophils (0.0 - 0.2 /CUMM) 0 0 Assessment/Plan Assessment/Plan 47-year-old uncontrolled diabetic male with peripheral vascular disease status post incision and drainage with multiple washouts of an infected puncture wound of the right foot with resolving skin and soft tissue infection. Patient was seen and evaluated at bedside. His final OR cultures were reviewed, agree with the decision to place him with MRSA coverage on an outpatient basis given his history even though the intraoperative cultures yielded MSSA and group B strep. The case was discussed with Dr. Proctor Thursday afternoon. Dry sterile dressing with Adaptic was placed on surgical wound, and this may be left on until his follow-up appointment with me on Thursday 11:30 AM in the [facility] wound care center. Surgical standpoint, he is clear for discharge. He reports being stable with a walker for basic activities and partial weightbearing on the operative side with full weightbearing on the contralateral side. We also discussed the possibility of doing an Achilles tendon lengthening down the line once the infection is resolved and the wound is nearly healed to prevent further ulceration in the plantar forefoot. Core Measures Venous Thromboembolism VTE Risk Factors Age>40 No Mechanical VTE Prophylaxis d/t N/A MechProphylax Ordered No VTE Pharm Prophylaxis d/t Surgical Contraindication
--- NOTE | 2018-01-10 12:42 | PN- Diabetes ---
Assessment/Plan Diabetes Assessment: 47 y/o female who was diagnosed with diabetes in his 30s. In addition, he has had a hx of right foot osteomyelitis positive for MRSA, hypothyroidism, peripheral neuropathy, diabetic retinopathy s/p laser treatment. At home, he was on Levemir 60 units twice a day and Humalog 12 units before meals. He presented with right foot open wound. He underwent foot procedure twice. Levemir was increased to 50 units twice a day; Novolog coverage before meals was adjusted multiple times. In addition, he is on Novolog coverage at bedtime. His FSGs were 289, 219, 184 and 194. Plan: continue the current insulin regimen for now; monitor FSGs. will follow. Subjective Subjective: he feels better this morning. Objective Last 24 Hrs of Vital Signs/I&O Vital Signs Date Time Temp Pulse Resp B/P B/P Pulse O2 O2 Flow FiO2 Mean Ox Delivery Rate 01/10 0843 90 118/66 01/10 0626 99.4 90 18 108/60 95 Room Air 01/09 2313 99.2 01/09 2300 99.2 01/09 2106 100.2 01/09 2059 100.2 95 20 120/69 96 Room Air 01/09 1654 100.4 Intake & Output 01/10 1600 01/10 0800 01/10 0000 Intake Total 500 1200 Output Total 450 Balance 50 1200 Intake, IV 250 300 Intake, Oral 250 900 Number 0 Bowel Movements Output, Urine 450 Findings Pertinent Lab/Pelon Results: Laboratory Tests 01/10 0805 Chemistry Sodium (137 - 145 mmol/L) 137 Potassium (3.5 - 5.1 mmol/L) 3.7 Chloride (98 - 107 mmol/L) 103 Carbon Dioxide (22 - 30 mmol/L) 23 Anion Gap (5 - 16) 12 BUN (9 - 20 mg/dL) 15 Creatinine (0.7 - 1.2 mg/dL) 0.7 Estimated GFR (>60 ml/min) > 60 BUN/Creatinine Ratio (7 - 25 %) 21.4 Hematology CBC w Diff NO MAN DIFF REQ WBC (4.8 - 10.8 /CUMM) 9.0 RBC (4.70 - 6.10 /CUMM) 3.82 L Hgb (14.0 - 18.0 G/DL) 11.7 L Hct (42 - 52 %) 34.3 L MCV (80.0 - 94.0 FL) 89.9 MCH (27.0 - 31.0 PG) 30.6 MCHC (33.0 - 37.0 G/DL) 34.0 RDW (11.5 - 14.5 %) 13.3 Plt Count (130 - 400 /CUMM) 161 MPV (7.4 - 10.4 FL) 9.8 Gran % (42.2 - 75.2 %) 72.8 Lymphocytes % (20.5 - 51.1 %) 17.3 L Monocytes % (1.7 - 9.3 %) 7.5 Eosinophils % (0 - 5 %) 2.0 Basophils % (0.0 - 2.0 %) 0.4 Absolute Granulocytes (1.4 - 6.5 /CUMM) 6.6 H Absolute Lymphocytes (1.2 - 3.4 /CUMM) 1.6 Absolute Monocytes (0.10 - 0.60 /CUMM) 0.7 H Absolute Eosinophils (0.0 - 0.7 /CUMM) 0.2 Absolute Basophils (0.0 - 0.2 /CUMM) 0
[2018-01-10 14:14] VITALS: BP 104/68
[2018-01-10 21:11] VITALS: BP 96/58
[2018-01-11 06:00] VITALS: BP 118/56
[2018-01-11 08:26] LABS: ABSOLUTE BASOPHIL COUNT 0 /CUMM (0.0-0.2); ABSOLUTE EOSINOPHIL COUNT 0.2 /CUMM (0.0-0.7); ABSOLUTE GRANULOCYTE CT 5.6 /CUMM (1.4-6.5); ABSOLUTE LYMPH COUNT 1.7 /CUMM (1.2-3.4); ABSOLUTE MONOCYTE COUNT 0.6 /CUMM (0.10-0.60); BASOPHIL % 0.4 % (0.0-2.0); EOSINOPHIL % 2.4 % (0-5); HEMATOCRIT 31.6 % (42-52); MEAN CORPUSCULAR HGB 30.9 PG (27.0-31.0); MEAN CORPUSCULAR HGB CONC 34.4 G/DL (33.0-37.0); MEAN CORPUSCULAR VOLUME 89.9 FL (80.0-94.0); PLATELET COUNT 198 /CUMM (130-400); RBC DISTRIBUTION WIDTH 13.3 % (11.5-14.5); RED BLOOD CELL CT 3.51 /CUMM (4.70-6.10); WHITE BLOOD CELL COUNT 8.1 /CUMM (4.8-10.8)
--- NOTE | 2018-01-11 09:56 | PN- Housestaff ---
Yassine COLLAZO,[facility] 01/11/18 0955: Subjective Follow-up For: R foot wound staph aureus and gbs positive Subjective: No acute events overnight. States headaches and fevers improved. Asking to be discharged. R foot covered in dressing. Review of Systems Constitutional: Reports: see HPI. Objective Last 24 Hrs of Vital Signs/I&O Vital Signs Date Time Temp Pulse Resp B/P B/P Pulse O2 O2 Flow FiO2 Mean Ox Delivery Rate 01/11 0758 68 120/78 01/11 0600 98.8 89 18 118/56 96 Room Air 01/10 2111 99.0 90 18 96/58 96 Room Air 01/10 1414 97.6 85 18 104/68 99 Room Air Intake & Output 01/11 1600 01/11 0800 01/11 0000 Intake Total 120 1170 Output Total Balance 120 1170 Intake, IV 250 Intake, Oral 120 920 Number 1 Bowel Movements Physical Exam General Appearance: Alert, Oriented X3, Cooperative, No Acute Distress Cardiovascular: Normal S1, Normal S2, mild tachycardia Lungs: Normal Air Movement Abdomen: Normal Bowel Sounds, Soft, No Tenderness Extremities: 1+ radial pulses, R foot covered in dressing. Current Medications: Current Medications Sig/[place] Start time Last Medication Dose Route Stop Time Status Admin Acetaminophen 325 MG Q6P PRN 01/08 1800 AC 01/09 PO 210 Atorvastatin Calcium 20 MG AT BEDTIME 01/06 2200 AC 01/10 PO 205 Cefazolin Sodium 1,000 MG IQ8 01/11 0000 AC 01/11 IV 0757 Heparin Sodium 5,000 UNIT Q8 01/08 1445 AC 01/11 (Porcine) SC 0528 Insulin Aspart 0 TIDAC/HS 01/09 1700 AC 01/11 SC 0758 Insulin Detemir 50 UNITS BID 01/09 2100 AC 01/11 SC 0758 Levothyroxine Sodium 0.1 MG DAILY AC 01/06 0700 AC 01/11 PO 0529 Lisinopril 5 MG DAILY 01/06 1000 AC 01/11 PO 0758 Morphine Sulfate 2 MG Q6P PRN 01/06 1230 AC 01/08 IV 2024 Oxycodone/ 1 TAB Q6P PRN 01/07 0900 AC 01/11 Acetaminophen PO 0757 Potassium Chloride 40 MEQ ONCE ONE 01/10 1045 DC 01/10 PO 01/10 1046 1424 Pregabalin 150 MG BID 01/07 0900 AC 01/11 PO 075 Trazodone HCl 50 MG AT BEDTIME 01/07 2100 AC 01/10 PO 2054 Vancomycin HCl 1,000 MG Q12 01/09 2100 DC 01/10 Dextrose/Water 250 ML IV 2055 Last 24 Hrs of Lab/Pelon Results Last 24 Hrs of Labs/Mics: Laboratory Tests 01/11/18 0635: CBC w Diff NO MAN DIFF REQ, RBC 3.51 L, MCV 89.9, MCH 30.9, MCHC 34.4, RDW 13.3 , MPV 10.0, Gran % 69.0, Lymphocytes % 20.8, Monocytes % 7.4, Eosinophils % 2.4, Basophils % 0.4, Absolute Granulocytes 5.6, Absolute Lymphocytes 1.7, Absolute Monocytes 0.6, Absolute Eosinophils 0.2, Absolute Basophils 0 Assessment/Plan Assessment: 47 yo m with a PMH significant for right foot osteomyelitis positive for MRSA, hypothyroidism, peripheral neuropathy, diabetic retinopathy s/p laser photocoagulation, IDDM, HTN, chronic back pain after an occupational injury presenting for right foot plantar ulcer with possible cellulitis vs abscess s/p debridement. Problems: R foot ulcer s/p injury with ?cellulitis/osteo Plan: -improved headaches and fevers after switch from Bactrim to vancomycin. switched from vanco to cefazolin. plan for discharge with cephalexin. -blood sugars well controlled. will discharge with same regimen. -s/p I+D and washout with primary closure -OR cx growing staph aureus and GBS -seen by vascular surgery, no f/u needed -changed pain meds to home reigmen of percs, lyrica, gabapentin and trazodone for sleep -continue endocrinology recommendations for blood sugar control -hemoglobin A1c 10.3 -Lactic acid 2.7, 1.1 -CRP 2.0 -Foot x-ray shows shock tissue gas, foreign bodies. MRI negative for osteomyelitis, shows cellulitis -Venous Doppler negative, arterial Doppler reveals PVD -Consider vascular consult -cont home lisinopril for htn Diet: Diabetic Code: FULL DVT ppx: heparin subq Problem List: 1. Wound, open, foot Pain Ratin Pain Location: foot Pain Goal: Pain 4 or less Pain Plan: pain pathway Tomorrow's Labs & Rationales: sarah Calderon MD,Judith 01/11/18 1223: Attending MD Review Statement Attending Statement Attending MD Statement: examined this patient, discuss w/resident/PA/[employer], agreed w/resident/PA/[employer], reviewed EMR data (avail), discussed with nursing, discussed with case mgmt, reviewed images, amended to note Attending Assessment/Plan: Patient seen and examined, denies any complaints. Patient seen by podiatry and found to have a small fluid collection. Podiatry recommends keeping the patient on IV antibiotics for another 24 hours. Vital Signs Date Time Temp Pulse Resp B/P B/P Pulse O2 O2 Flow FiO2 Mean Ox Delivery Rate 01/11 0758 68 120/78 01/11 0600 98.8 89 18 118/56 96 Room Air 01/10 2111 99.0 90 18 96/58 96 Room Air 01/10 1414 97.6 85 18 104/68 99 Room Air on exam; aox3, nad. cv; s1,s2, rrr resp; clear abd; soft, nt, bs+ ext; no edema halima warp on right foot. Laboratory Tests 01/11 0635 Hematology CBC w Diff NO MAN DIFF REQ WBC (4.8 - 10.8 /CUMM) 8.1 RBC (4.70 - 6.10 /CUMM) 3.51 L Hgb (14.0 - 18.0 G/DL) 10.9 L Hct (42 - 52 %) 31.6 L MCV (80.0 - 94.0 FL) 89.9 MCH (27.0 - 31.0 PG) 30.9 MCHC (33.0 - 37.0 G/DL) 34.4 RDW (11.5 - 14.5 %) 13.3 Plt Count (130 - 400 /CUMM) 198 MPV (7.4 - 10.4 FL) 10.0 Gran % (42.2 - 75.2 %) 69.0 Lymphocytes % (20.5 - 51.1 %) 20.8 Monocytes % (1.7 - 9.3 %) 7.4 Eosinophils % (0 - 5 %) 2.4 Basophils % (0.0 - 2.0 %) 0.4 Absolute Granulocytes (1.4 - 6.5 /CUMM) 5.6 Absolute Lymphocytes (1.2 - 3.4 /CUMM) 1.7 Absolute Monocytes (0.10 - 0.60 /CUMM) 0.6 Absolute Eosinophils (0.0 - 0.7 /CUMM) 0.2 Absolute Basophils (0.0 - 0.2 /CUMM) 0 A/P; 47 y/o M with pmh sig for right foot osteomyelitis positive for MRSA, hypothyroidism, peripheral neuropathy, diabetic retinopathy s/p laser photocoagulation, IDDM, HTN, chronic back pain admitted with right foot plantar ulcer with question of osteomyelitis, hyperglycemia and uncontrolled diabetes. Arterial Doppler also consistent with peripheral artery disease. MRI foot was neg for Osteomyelitis. Cultures grew MSSA and beta strep group G. continue IV cefazolin for another 24 hours. We'll switch to oral Keflex tomorrow as recommended by infectious disease. Patient has been cleared from podiatry for partial weightbearing with walker. Blood sugars are in acceptable range. Followed by endo, continue current Levemir dosing. Pain mx adequate. DVT px; Hep sq. Possible discharge tomorrow.
--- NOTE | 2018-01-11 10:44 | PN- Diabetes ---
Assessment/Plan Diabetes Assessment: 47 y/o female who was diagnosed with diabetes in his 30s. In addition, he has had a hx of right foot osteomyelitis positive for MRSA, hypothyroidism, peripheral neuropathy, diabetic retinopathy s/p laser treatment. At home, he was on Levemir 60 units twice a day and Humalog 12 units before meals. He presented with right foot open wound. He underwent foot procedure twice. Levemir was increased to 50 units twice a day; Novolog coverage before meals was adjusted multiple times. In addition, he is on Novolog coverage at bedtime. His FSGs were 158, 151 and 131. Plan: continue the current insulin regimen for now; monitor FSGs. The discharge plan for DM will be the same insulin regimen as inpatient; f/u in office after discharge. Subjective Subjective: His glucose level has been better controlled. Objective Last 24 Hrs of Vital Signs/I&O Vital Signs Date Time Temp Pulse Resp B/P B/P Pulse O2 O2 Flow FiO2 Mean Ox Delivery Rate 01/11 0758 68 120/78 01/11 0600 98.8 89 18 118/56 96 Room Air 01/10 2111 99.0 90 18 96/58 96 Room Air 01/10 1414 97.6 85 18 104/68 99 Room Air Intake & Output 01/11 1600 01/11 0800 01/11 0000 Intake Total 120 1170 Output Total Balance 120 1170 Intake, IV 250 Intake, Oral 120 920 Number 1 Bowel Movements Findings Pertinent Lab/Pelon Results: Laboratory Tests 01/11 0635 Hematology CBC w Diff NO MAN DIFF REQ WBC (4.8 - 10.8 /CUMM) 8.1 RBC (4.70 - 6.10 /CUMM) 3.51 L Hgb (14.0 - 18.0 G/DL) 10.9 L Hct (42 - 52 %) 31.6 L MCV (80.0 - 94.0 FL) 89.9 MCH (27.0 - 31.0 PG) 30.9 MCHC (33.0 - 37.0 G/DL) 34.4 RDW (11.5 - 14.5 %) 13.3 Plt Count (130 - 400 /CUMM) 198 MPV (7.4 - 10.4 FL) 10.0 Gran % (42.2 - 75.2 %) 69.0 Lymphocytes % (20.5 - 51.1 %) 20.8 Monocytes % (1.7 - 9.3 %) 7.4 Eosinophils % (0 - 5 %) 2.4 Basophils % (0.0 - 2.0 %) 0.4 Absolute Granulocytes (1.4 - 6.5 /CUMM) 5.6 Absolute Lymphocytes (1.2 - 3.4 /CUMM) 1.7 Absolute Monocytes (0.10 - 0.60 /CUMM) 0.6 Absolute Eosinophils (0.0 - 0.7 /CUMM) 0.2 Absolute Basophils (0.0 - 0.2 /CUMM) 0
--- NOTE | 2018-01-11 11:22 | PN- Infect Dx ---
Subjective Subjective: Afebrile without complaints Objective Last 24 Hrs of Vital Signs/I&O Vital Signs Date Time Temp Pulse Resp B/P B/P Pulse O2 O2 Flow FiO2 Mean Ox Delivery Rate 01/11 0758 68 120/78 01/11 0600 98.8 89 18 118/56 96 Room Air 01/10 2111 99.0 90 18 96/58 96 Room Air 01/10 1414 97.6 85 18 104/68 99 Room Air Intake & Output 01/11 1600 01/11 0800 01/11 0000 Intake Total 120 1170 Output Total Balance 120 1170 Intake, IV 250 Intake, Oral 120 920 Number 1 Bowel Movements Physical Exam Other Physical Findings: He appears comfortable in no acute distress Extremities right foot plantar wound clean, with no surrounding erythema or tenderness but with serosanguineous drainage; mild erythema over the dorsal aspect of the right foot Results Last 24 Hours of Lab Results: Laboratory Tests 01/11 0635 Hematology CBC w Diff NO MAN DIFF REQ WBC (4.8 - 10.8 /CUMM) 8.1 RBC (4.70 - 6.10 /CUMM) 3.51 L Hgb (14.0 - 18.0 G/DL) 10.9 L Hct (42 - 52 %) 31.6 L MCV (80.0 - 94.0 FL) 89.9 MCH (27.0 - 31.0 PG) 30.9 MCHC (33.0 - 37.0 G/DL) 34.4 RDW (11.5 - 14.5 %) 13.3 Plt Count (130 - 400 /CUMM) 198 MPV (7.4 - 10.4 FL) 10.0 Gran % (42.2 - 75.2 %) 69.0 Lymphocytes % (20.5 - 51.1 %) 20.8 Monocytes % (1.7 - 9.3 %) 7.4 Eosinophils % (0 - 5 %) 2.4 Basophils % (0.0 - 2.0 %) 0.4 Absolute Granulocytes (1.4 - 6.5 /CUMM) 5.6 Absolute Lymphocytes (1.2 - 3.4 /CUMM) 1.7 Absolute Monocytes (0.10 - 0.60 /CUMM) 0.6 Absolute Eosinophils (0.0 - 0.7 /CUMM) 0.2 Absolute Basophils (0.0 - 0.2 /CUMM) 0 Last 24 Hours of [place] Results: Blood cultures January 08 negative Urine culture January 09 negative OR culture labeled right foot deep tissue January 06 positive for Staph aureus sensitive to Oxacillin and Group B strep Assessment/Plan ID Impression: Improved with temperatures and white blood cell count now normal after the development of fevers and increasing white blood cell count following I&D/ washout of the puncture wound of the right foot with primary closure 3 days ago. He is currently on Cefazolin, which should adequately cover the MSSA and Group B strep isolated from his initial OR culture and he should be able to complete a course of treatment with oral antibiotics as there was not felt on MRI or in the OR to be any evidence for bone involvement. Suggestion: 1. Continue Cefazolin until discharge, at which point can change to Keflex 500 mg po every 6 hours for 5 more days
--- NOTE | 2018-01-11 11:30 | PN- Podiatry ---
Subjective Subjective: 47-year-old uncontrolled diabetic male with PVD seen and evaluated at bedside status post multiple washouts of the right foot for an infected puncture wound. Patient has been afebrile since Thursday evening, and continues to report no pain at the surgical site. Patient appears anxious to go home. Patient denies fever , chills, nausea, vomiting, diaphoresis, shortness of breath, chest pain at the time of my examination. Review of Systems: A 14 point review of systems was performed, and was found to be negative apart from the patient's complaints described above in the history of present illness. Objective Vital Signs and I&Os Vital Signs Date Time Temp Pulse Resp B/P B/P Pulse O2 O2 Flow FiO2 Mean Ox Delivery Rate 01/11 0758 68 120/78 01/11 0600 98.8 89 18 118/56 96 Room Air 01/10 2111 99.0 90 18 96/58 96 Room Air 01/10 1414 97.6 85 18 104/68 99 Room Air Intake & Output 01/11 1600 01/11 0800 01/11 0000 01/10 1600 01/10 0800 01/10 0000 Intake Total 120 1170 866 485 8243 Output Total 450 Balance 120 1170 739 44 0245 Intake, IV 250 250 300 Intake, Oral 120 920 240 250 900 Number 1 1 0 Bowel Movements Output, Urine 450 Physical Exam: Neurovascular status is unchanged, musculoskeletal exam is unchanged from initial consultation. The surgical wound has scant purulent drainage at its distal aspect. The distal skin sutures were removed, and a 0.5 mL fluid collection was drained. All fascial planes were then expressed and no further drainage was found. There is a small amount of ecchymosis dorsally over the second intermetatarsal space, but this is likely reactive from exploration during the procedures as it is without calor. No new skin necrosis, no malodor, no crepitus, no fluctuance. Current Medications: Current Medications Sig/[place] Start time Last Medication Dose Route Stop Time Status Admin Acetaminophen 325 MG Q6P PRN 01/08 1800 AC 01/09 PO 2105 Atorvastatin Calcium 20 MG AT BEDTIME 01/060 AC 01/10 PO 2054 Cefazolin Sodium 1,000 MG IQ8 01/11 0000 AC 01/11 IV 0757 Heparin Sodium 5,000 UNIT Q8 01/08 1445 AC 01/11 (Porcine) SC 0528 Insulin Aspart 0 TIDAC/HS 01/09 1700 AC 01/11 SC 0758 Insulin Detemir 50 UNITS BID 01/09 2100 AC 01/11 SC 0758 Levothyroxine Sodium 0.1 MG DAILY AC 01/06 0700 AC 01/11 PO 0529 Lisinopril 5 MG DAILY 01/06 1000 AC 01/11 PO 075 Morphine Sulfate 2 MG Q6P PRN 01/06 1230 AC 01/08 IV 202 Oxycodone/ 1 TAB Q6P PRN 01/07 0900 AC 01/11 Acetaminophen PO 075 Pregabalin 150 MG BID 01/07 0900 AC 01/11 PO 075 Trazodone HCl 50 MG AT BEDTIME 01/07 2100 AC 01/10 PO 205 Vancomycin HCl 1,000 MG Q12 01/09 2100 DC 01/10 Dextrose/Water 250 ML IV 2055 Results Last 48 Hours of Labs: Laboratory Tests 01/11 01/10 0635 0805 Chemistry Sodium (137 - 145 mmol/L) 137 Potassium (3.5 - 5.1 mmol/L) 3.7 Chloride (98 - 107 mmol/L) 103 Carbon Dioxide (22 - 30 mmol/L) 23 Anion Gap (5 - 16) 12 BUN (9 - 20 mg/dL) 15 Creatinine (0.7 - 1.2 mg/dL) 0.7 Estimated GFR (>60 ml/min) > 60 BUN/Creatinine Ratio (7 - 25 %) 21.4 Hematology CBC w Diff NO MAN DIFF REQ NO MAN DIFF REQ WBC (4.8 - 10.8 /CUMM) 8.1 9.0 RBC (4.70 - 6.10 /CUMM) 3.51 L 3.82 L Hgb (14.0 - 18.0 G/DL) 10.9 L 11.7 L Hct (42 - 52 %) 31.6 L 34.3 L MCV (80.0 - 94.0 FL) 89.9 89.9 MCH (27.0 - 31.0 PG) 30.9 30.6 MCHC (33.0 - 37.0 G/DL) 34.4 34.0 RDW (11.5 - 14.5 %) 13.3 13.3 Plt Count (130 - 400 /CUMM) 198 161 MPV (7.4 - 10.4 FL) 10.0 9.8 Gran % (42.2 - 75.2 %) 69.0 72.8 Lymphocytes % (20.5 - 51.1 %) 20.8 17.3 L Monocytes % (1.7 - 9.3 %) 7.4 7.5 Eosinophils % (0 - 5 %) 2.4 2.0 Basophils % (0.0 - 2.0 %) 0.4 0.4 Absolute Granulocytes (1.4 - 6.5 /CUMM) 5.6 6.6 H Absolute Lymphocytes (1.2 - 3.4 /CUMM) 1.7 1.6 Absolute Monocytes (0.10 - 0.60 /CUMM) 0.6 0.7 H Absolute Eosinophils (0.0 - 0.7 /CUMM) 0.2 0.2 Absolute Basophils (0.0 - 0.2 /CUMM) 0 0 Assessment/Plan Assessment/Plan 47-year-old male with uncontrolled type 2 diabetes and peripheral vascular disease doing well status post multiple incision and drainage and washout procedures to treat an infected puncture wound of the right foot. The patient was seen and evaluated at bedside. The 2 most distal sutures were removed, and a small fluid collection was drained , there is no deep involvement and aggressive expression of all surrounding fascial planes yielded no further drainage. The wound was packed with sterile gauze after being irrigated with 300 mL of normal saline, dry sterile padded dressing was applied to the right foot. No change in the patient's weightbearing status. He is clear for partial weightbearing with a 4 point walker. I discussed the case with Baldev Proctor MD earlier this morning. The patient should be clear for discharge on directed skin and soft tissue therapy, but in light of this small new collection and his comorbidities I would consider intravenous over oral therapy at this time. He is otherwise clear for discharge home, and we will consider a delayed primary closure as an outpatient in the wound care center. The patient is to follow-up tomorrow in the wound care center at 11:30 AM. If he is not discharge, I will perform the same services first thing tomorrow morning as an inpatient. Core Measures Venous Thromboembolism VTE Risk Factors Age>40 No Mechanical VTE Prophylaxis d/t N/A MechProphylax Ordered No VTE Pharm Prophylaxis d/t Surgical Contraindication
[2018-01-11 14:50] VITALS: BP 110/68
--- NOTE | 2018-01-11 15:25 | PN- Student ---
Subjective Subjective: Patient has been having fevers all night and he is also complaining about worsening headaches. ROS: See HPI Objective Objective: Vital Signs Date Time Temp Pulse Resp B/P B/P Pulse O2 O2 Flow FiO2 Mean Ox Delivery Rate 01/09 0848 85 112/64 01/09 0649 99.3 94 18 106/68 94 01/08 2300 99.9 01/08 2259 99.9 01/08 2200 103.3 01/08 2200 102.8 105 18 104/67 92 Room Air 01/08 1903 103.3 01/08 1804 100.9 01/08 1800 100.9 01/08 1423 98.1 64 20 112/60 94 Room Air Intake & Output 01/09 1600 01/09 0800 01/09 0000 Intake Total 400 600 Output Total 350 Balance 50 600 Intake, Oral 400 600 Output, Urine 350 Physical Exam General Appearance: Alert, Oriented X3, Cooperative Cardiovascular: tachycardia Lungs: Clear to Auscultation, Normal Air Movement Abdomen: Normal Bowel Sounds, Soft, No Tenderness Extremities: R foot covered in dressing Vascular: 2+ radial pulses Current Medications Sig/[place] Start time Last Medication Dose Route Stop Time Status Admin Acetaminophen 1,000 MG ONCE ONE 01/08 2045 DC 01/08 N/A 1 UNIT IV 01/08 2059 2200 Acetaminophen 325 MG Q6P PRN 01/08 1800 AC 01/08 PO 1804 Atorvastatin Calcium 20 MG AT BEDTIME 01/06 2200 AC 01/08 PO 2210 Heparin Sodium 5,000 UNIT Q8 01/08 1445 AC 01/09 (Porcine) SC 0500 Insulin Aspart 0 TIDAC/HS 01/09 1700 AC SC Insulin Aspart 0 TIDAC 01/08 1700 DC 01/09 SC 1213 Insulin Detemir 50 UNITS BID 01/09 2100 AC SC Insulin Detemir 40 UNITS BID 01/08 1215 DC 01/09 SC 0846 Levothyroxine Sodium 0.1 MG DAILY AC 01/06 0700 AC 01/09 PO 0500 Lisinopril 5 MG DAILY 01/06 1000 AC 01/09 PO 0848 Morphine Sulfate 2 MG Q6P PRN 01/06 1230 AC 01/08 IV 2024 Oxycodone/ 1 TAB Q6P PRN 01/07 0900 AC 01/09 Acetaminophen PO 1015 Pregabalin 150 MG BID 01/07 0900 AC 01/09 PO 0845 Trazodone HCl 50 MG AT BEDTIME 01/07 2100 AC 01/08 PO 2211 Trimethoprim/ 1 TAB BID 01/08 1415 AC 01/09 Sulfamethoxazole PO 0845 Results Results: Laboratory Tests 01/09/18 0625: CBC w Diff NO MAN DIFF REQ, RBC 3.78 L, MCV 89.7, MCH 30.8, MCHC 34.3, RDW 13.6 , MPV 9.7, Gran % 80.9 H, Lymphocytes % 12.2 L, Monocytes % 6.3, Eosinophils % 0.4, Basophils % 0.2, Absolute Granulocytes 11.3 H, Absolute Lymphocytes 1.7, Absolute Monocytes 0.9 H, Absolute Eosinophils 0.1, Absolute Basophils 0 Microbiology 01/09 0545 URINE ROUT: Urine Culture - COMP 01/08 2217 BLOOD: Blood Culture - RES 01/09 2112 BLOOD: Blood Culture - RES COMMENT: 4 PEA-SIZE SAMPLES OF RIGHT FOOT TISSUE RECEIVED IN A STERILE CUP ADDITIONAL INFORMATION: DEEP TISSUE CULTURE RIGHT FOOT Procedure Result > GRAM STAIN Final 01/07/18-1514 WHITE BLOOD CELLS NONE OTHER NO ORGANISMS SEEN > EXTREMITIES OR SPECIMEN Final 01/09/18-1309 Light growth of: 1.STAPH AUREUS ISOLATED SCANT GROWTH OF: 2. BETA STREP GROUP B 1. STAPH AUREUS RX ABN ------ --- 1. 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 He was admitted because of right plantar open wounds that were not healing. He was taken to OR for I/D on 01/06 and on 01/08 again for wound closure. 1. 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 Increased blood sugar levels - Endo consult - Monitor blood sugar levels - Adjust insulin doses - Maintain diabetic diet 3. Fever - Administer acetaminophen for lowering temperature - Monitor temperature fluctuations 4. Headaches - Pain management
--- NOTE | 2018-01-11 15:37 | PN- Student ---
Subjective Subjective: Patient is feeling well. He states that he didn't have a good night sleep and is not in pain. He is starting feeling "down" because of his extended stay at the hospital. ROS: See HPI Objective Objective: Vital Signs Date Time Temp Pulse Resp B/P B/P Pulse O2 O2 Flow FiO2 Mean Ox Delivery Rate 01/11 1450 98.7 101 20 110/68 99 Room Air 01/11 0758 68 120/78 01/11 0600 98.8 89 18 118/56 96 Room Air 01/10 2111 99.0 90 18 96/58 96 Room Air ED Intake and Output 01/11 0000 01/10 1200 Intake Total 1410 500 Output Total 450 Balance 1410 50 Intake, IV 250 250 Intake, Oral 1160 250 Number 2 Bowel Movements Output, Urine 450 Patient is cooperative and chatty. He is in no distress, alert and oriented x3. His blood sugar level was 131 at 7:58am, 79 at 11:27am. Results Results: Laboratory Tests 01/11/18 0635: CBC w Diff NO MAN DIFF REQ, RBC 3.51 L, MCV 89.9, MCH 30.9, MCHC 34.4, RDW 13.3 , MPV 10.0, Gran % 69.0, Lymphocytes % 20.8, Monocytes % 7.4, Eosinophils % 2.4, Basophils % 0.4, Absolute Granulocytes 5.6, Absolute Lymphocytes 1.7, Absolute Monocytes 0.6, Absolute Eosinophils 0.2, Absolute Basophils 0 01/10/18 0805: Anion Gap 12, Estimated GFR > 60, BUN/Creatinine Ratio 21.4, CBC w Diff NO MAN DIFF REQ, RBC 3.82 L, MCV 89.9, MCH 30.6, MCHC 34.0, RDW 13.3, MPV 9.8, Gran % 72.8, Lymphocytes % 17.3 L, Monocytes % 7.5, Eosinophils % 2.0, Basophils % 0.4 , Absolute Granulocytes 6.6 H, Absolute Lymphocytes 1.6, Absolute Monocytes 0.7 H, Absolute Eosinophils 0.2, Absolute Basophils 0 01/09/18 0625: CBC w Diff NO MAN DIFF REQ, RBC 3.78 L, MCV 89.7, MCH 30.8, MCHC 34.3, RDW 13.6 , MPV 9.7, Gran % 80.9 H, Lymphocytes % 12.2 L, Monocytes % 6.3, Eosinophils % 0.4, Basophils % 0.2, Absolute Granulocytes 11.3 H, Absolute Lymphocytes 1.7, Absolute Monocytes 0.9 H, Absolute Eosinophils 0.1, Absolute Basophils 0 Microbiology 01/09 545 URINE ROUT: Urine Culture - COMP 01/08 2217 BLOOD: Blood Culture - RES 01/09 2112 BLOOD: Blood Culture - RES Assessment/Plan Assessment: Mendoza Dent is a 47 y/o male with a past medical history significant for 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 He was admitted because of right plantar open wounds that were not healing. He was taken to OR for I/D on 01/06 and on 01/08 again [address] wound closure. Dr. Griffith said his diabetes was controlled and that the current insulin regimen should be followed as outpatient. Podaitrist saw him today and decided to extend his stay one more day in order for patient to receive IV antibiotics, after a 5ml fluid collection was drained from the 2 most distal sutures. Patient will be seen again tomorrow morning to assess the status of his wound. 1. R foot ulcer - Follow probate paralegal recommendations - Continue IV antibiotics - Continue pain medications 2. Increased blood sugar levels - Monitor blood sugar levels - Continue insulin regimen - Maintain diabetic diet
[2018-01-11 21:18] VITALS: BP 118/70
[2018-01-12 06:21] VITALS: BP 104/62
[2018-01-12 09:05] LABS: ABSOLUTE BASOPHIL COUNT 0.1 /CUMM (0.0-0.2); ABSOLUTE EOSINOPHIL COUNT 0.2 /CUMM (0.0-0.7); ABSOLUTE LYMPH COUNT 2.1 /CUMM (1.2-3.4); ABSOLUTE MONOCYTE COUNT 0.5 /CUMM (0.10-0.60); BASOPHIL % 0.8 % (0.0-2.0); EOSINOPHIL % 2.7 % (0-5); HEMATOCRIT 35.8 % (42-52); MEAN CORPUSCULAR HGB 30.9 PG (27.0-31.0); MEAN CORPUSCULAR HGB CONC 34.6 G/DL (33.0-37.0); MEAN CORPUSCULAR VOLUME 89.2 FL (80.0-94.0); MEAN PLATELET VOLUME 9.9 FL (7.4-10.4); RBC DISTRIBUTION WIDTH 13.5 % (11.5-14.5); RED BLOOD CELL CT 4.02 /CUMM (4.70-6.10); WHITE BLOOD CELL COUNT 7.8 /CUMM (4.8-10.8)
--- NOTE | 2018-01-12 09:18 | PN- Diabetes ---
Assessment/Plan Diabetes Assessment: 47 y/o female who was diagnosed with diabetes in his 30s. In addition, he has had a hx of right foot osteomyelitis positive for MRSA, hypothyroidism, peripheral neuropathy, diabetic retinopathy s/p laser treatment. At home, he was on Levemir 60 units twice a day and Humalog 12 units before meals. He presented with right foot open wound. He underwent foot procedure twice. Levemir was increased to 50 units twice a day; Novolog coverage before meals was adjusted multiple times. In addition, he is on Novolog coverage at bedtime. His FSGs were 79, 196, 198 and 92. He still had T of 100.8. Plan: 1. decrease Levemir to 45 units twice a day; 2. adjust Novolog coverage before meals; detail see the inpatient DM order; 3. continue the curent Novolog coverage at bedtime; 4. monitor FSGs will follow. Inpatient Diabetes Orders Before Each Meal: Bolus Insulin: Novolog < 80 mg/dl: no coverage 80-100 mg/dl: 10 units 101-120 mg/dl: 10 units 121-150 mg/dl: 10 units 151-200 mg/dl: 13 units 201-250 mg/dl: 16 units 251-300 mg/dl: 18 units 301-350 mg/dl: 20 units 351-400 mg/dl: 22 units > 400 mg/dl: 24 units Subjective Subjective: He had T of 100.8 last night. Objective Last 24 Hrs of Vital Signs/I&O Vital Signs Date Time Temp Pulse Resp B/P B/P Pulse O2 O2 Flow FiO2 Mean Ox Delivery Rate 01/12 0814 82 104/62 01/12 0621 98.9 82 18 104/62 96 Room Air 01/11 2118 100.8 94 18 118/70 95 Room Air 01/11 1450 98.7 101 20 110/68 99 Room Air Intake & Output 01/12 1600 01/12 0800 01/12 0000 Intake Total 260 240 Output Total Balance 260 240 Intake, IV 20 Intake, Oral 240 240 Findings Pertinent Lab/Pelon Results: Laboratory Tests 01/12 0825 Hematology CBC w Diff Pending WBC Pending RBC Pending Hgb Pending Hct Pending MCV Pending MCH Pending MCHC Pending RDW Pending Plt Count Pending MPV Pending
--- NOTE | 2018-01-12 09:32 | PN- Housestaff ---
Yassine COLLAZO,[facility] 01/12/18 0932: Subjective Follow-up For: R foot wound staph aureus and gbs positive Positive blood cx Subjective: No acute events overnight. States he slept well. No complaints asking about discharge. Review of Systems Constitutional: Reports: see HPI. Objective Last 24 Hrs of Vital Signs/I&O Vital Signs Date Time Temp Pulse Resp B/P B/P Pulse O2 O2 Flow FiO2 Mean Ox Delivery Rate 01/12 0814 82 104/62 01/12 0621 98.9 82 18 104/62 96 Room Air 01/11 2118 100.8 94 18 118/70 95 Room Air 01/11 1450 98.7 101 20 110/68 99 Room Air Intake & Output 01/12 1600 01/12 0800 01/12 0000 Intake Total 260 240 Output Total Balance 260 240 Intake, IV 20 Intake, Oral 240 240 Physical Exam General Appearance: Alert, Oriented X3, Cooperative Cardiovascular: mild tachycardia Lungs: Clear to Auscultation, Normal Air Movement Abdomen: Normal Bowel Sounds, Soft, No Tenderness Extremities: trace LE edema Vascular: 2+ radial pulses Current Medications: Current Medications Sig/[place] Start time Last Medication Dose Route Stop Time Status Admin Acetaminophen 325 MG Q6P PRN 01/08 1800 AC 01/09 PO 2106 Atorvastatin Calcium 20 MG AT BEDTIME 01/06 2200 AC 01/11 PO 2137 Cefazolin Sodium 1,000 MG IQ8 01/11 0000 AC 01/12 IV 0813 Dextrose/Sodium 1,000 ML Q20H 01/12 1030 AC 01/12 Chloride IV 1035 Docusate Sodium 100 MG DAILY NEEDED PRN 01/11 2015 AC 01/11 PO 2137 Heparin Sodium 5,000 UNIT Q8 01/08 1445 AC 01/12 (Porcine) SC 0541 Insulin Aspart 0 Q4 01/12 1400 AC SC Insulin Aspart 0 TIDAC/HS 01/09 1700 DC 01/12 SC 0814 Insulin Detemir 45 UNITS BID 01/12 0900 AC SC Insulin Detemir 50 UNITS BID 01/09 2100 DC 01/12 SC 0813 Levothyroxine Sodium 0.1 MG DAILY AC 01/06 0700 AC 01/12 PO 0536 Lisinopril 5 MG DAILY 01/06 1000 AC 01/12 PO 0814 Morphine Sulfate 2 MG Q6P PRN 01/06 1230 AC 01/08 IV 2024 Oxycodone/ 1 TAB Q6P PRN 01/07 900 AC 01/12 Acetaminophen PO 0930 Pregabalin 150 MG BID 01/07 900 AC 01/12 PO 0814 Senna 187 MG AT BEDTIME 01/11 2100 AC 01/11 PO 2136 Trazodone HCl 50 MG AT BEDTIME 01/07 2100 AC 01/11 PO 2136 Last 24 Hrs of Lab/Pelon Results Last 24 Hrs of Labs/Mics: Laboratory Tests 01/12/18 0825: CBC w Diff NO MAN DIFF REQ, RBC 4.02 L, MCV 89.2, MCH 30.9, MCHC 34.6, RDW 13.5 , MPV 9.9, Gran % 63.6, Lymphocytes % 26.9, Monocytes % 6.0, Eosinophils % 2.7, Basophils % 0.8, Absolute Granulocytes 5.0, Absolute Lymphocytes 2.1, Absolute Monocytes 0.5, Absolute Eosinophils 0.2, Absolute Basophils 0.1 Assessment/Plan Assessment: 47 yo m with a PMH significant for right foot osteomyelitis positive for MRSA, hypothyroidism, peripheral neuropathy, diabetic retinopathy s/p laser photocoagulation, IDDM, HTN, chronic back pain after an occupational injury presenting for right foot plantar ulcer with possible cellulitis vs abscess s/p debridement. Problems: R foot ulcer s/p injury with ?cellulitis/osteo Plan: -will be taken back to OR today as foot now draining pus per podiatry -blood cx positive for gram+ cocci -mild fever of 100.8 last night after switching to cefazolin. will talk to ID about switching back to vanco for MRSA coverage -blood sugars well controlled. will discharge with same regimen. -s/p I+D and washout with primary closure -OR cx growing staph aureus and GBS -seen by vascular surgery, no f/u needed -changed pain meds to home reigmen of percs, lyrica, gabapentin and trazodone for sleep -continue endocrinology recommendations for blood sugar control -hemoglobin A1c 10.3 -Lactic acid 2.7, 1.1 -CRP 2.0 -Foot x-ray shows shock tissue gas, foreign bodies. MRI negative for osteomyelitis, shows cellulitis -Venous Doppler negative, arterial Doppler reveals PVD -Consider vascular consult -cont home lisinopril for htn Diet: Diabetic Code: FULL DVT ppx: heparin subq Problem List: 1. Wound, open, foot Pain Ratin Pain Location: foot Pain Goal: Pain 4 or less Pain Plan: pathway Tomorrow's Labs & Rationales: cbc vincent Calderon MD,Judith 01/12/18 1329: Attending MD Review Statement Attending Statement Attending MD Statement: examined this patient, discuss w/resident/PA/INVESTIGATIVE REPORTER, agreed w/resident/PA/INVESTIGATIVE REPORTER, reviewed EMR data (avail), discussed with nursing, discussed with case mgmt, reviewed images, amended to note Attending Assessment/Plan: Patient seen and examined, doing okay but continues to spike fever. Seen by podiatry this morning and there was some pustular collection that was drained from his foot. Podiatry recommends taking him to operating room again to do further debridement. Patient also growing gram-positive cocci in clusters in his blood culture. Patient on IV cefazolin. Will d/w ID about the abx. Insulin mx per endo. Continue other current meds and pt on hep sq for dvt px.
[2018-01-12 10:13] LABS: GRANULOCYTE % 63.6 % (42.2-75.2); PLATELET COUNT 197 /CUMM (130-400)
--- NOTE | 2018-01-12 12:23 | PN- Podiatry ---
Subjective Subjective: 47-year-old male seen and evaluated at bedside status post incision and drainage with multiple washouts of the right foot on January 06 and respectively. Patient denies pain at the surgical site, but has again spiked 101F fever last evening. Review of Systems: A 14 point review of systems was performed, and was found to be negative apart from the patient's complaints described above in the history of present illness. Objective Vital Signs and I&Os Vital Signs Date Time Temp Pulse Resp B/P B/P Pulse O2 O2 Flow FiO2 Mean Ox Delivery Rate 01/12 0814 82 104/62 01/12 0621 98.9 82 18 104/62 96 Room Air 01/11 2118 100.8 94 18 118/70 95 Room Air 01/11 1450 98.7 101 20 110/68 99 Room Air Intake & Output 01/12 1600 01/12 0800 01/12 0000 01/11 1600 01/11 0800 01/11 0000 Intake Total 260 240 992 387 4600 Output Total Balance 260 240 918 345 7014 Intake, IV 20 50 250 Intake, Oral 240 240 800 120 920 Number 0 1 Bowel Movements Physical Exam: Neurovascular status and musculoskeletal exam are unchanged. The surgical wound again has 2cc purulence upon expression, and a new onset dorsal bulla over the second intermetatarsal space is not present. There is still no calor, but there is a small amount of ecchymosis dorsally. The remainder of the wound appears viable and intact. Current Medications: Current Medications Sig/[place] Start time Last Medication Dose Route Stop Time Status Admin Acetaminophen 325 MG Q6P PRN 01/08 1800 AC 01/09 PO 210 Atorvastatin Calcium 20 MG AT BEDTIME 01/06 2200 AC 01/11 PO 213 Cefazolin Sodium 1,000 MG IQ8 01/11 0000 AC 01/12 IV 0813 Dextrose/Sodium 1,000 ML Q20H 01/12 1030 AC 01/12 Chloride IV 1035 Docusate Sodium 100 MG DAILY NEEDED PRN 01/11 2015 AC 01/11 PO 213 Heparin Sodium 5,000 UNIT Q8 01/08 1445 AC 01/12 (Porcine) SC 01/12 1500 0541 Insulin Aspart 0 Q4 01/12 1400 AC SC Insulin Aspart 0 TIDAC/HS 01/09 1700 DC 01/12 SC 0814 Insulin Detemir 45 UNITS BID 01/12 0900 AC SC Insulin Detemir 50 UNITS BID 01/09 2100 DC 01/12 SC 0813 Levothyroxine Sodium 0.1 MG DAILY AC 01/06 0700 AC 01/12 PO 0536 Lisinopril 5 MG DAILY 01/06 1000 AC 01/12 PO 0814 Morphine Sulfate 2 MG Q6P PRN 01/06 1230 AC 01/08 IV 2024 Oxycodone/ 1 TAB Q6P PRN 01/07 09 AC 01/12 Acetaminophen PO 0930 Pregabalin 150 MG BID 01/07 09 AC 01/12 PO 0814 Senna 187 MG AT BEDTIME 01/11 2100 AC 01/11 PO 213 Trazodone HCl 50 MG AT BEDTIME 01/07 2100 AC 01/11 PO 2136 Results Last 48 Hours of Labs: Laboratory Tests 01/12 01/11 0825 0635 Hematology CBC w Diff NO MAN DIFF REQ NO MAN DIFF REQ WBC (4.8 - 10.8 /CUMM) 7.8 8.1 RBC (4.70 - 6.10 /CUMM) 4.02 L 3.51 L Hgb (14.0 - 18.0 G/DL) 12.4 L 10.9 L Hct (42 - 52 %) 35.8 L 31.6 L MCV (80.0 - 94.0 FL) 89.2 89.9 MCH (27.0 - 31.0 PG) 30.9 30.9 MCHC (33.0 - 37.0 G/DL) 34.6 34.4 RDW (11.5 - 14.5 %) 13.5 13.3 Plt Count (130 - 400 /CUMM) 197 198 MPV (7.4 - 10.4 FL) 9.9 10.0 Gran % (42.2 - 75.2 %) 63.6 69.0 Lymphocytes % (20.5 - 51.1 %) 26.9 20.8 Monocytes % (1.7 - 9.3 %) 6.0 7.4 Eosinophils % (0 - 5 %) 2.7 2.4 Basophils % (0.0 - 2.0 %) 0.8 0.4 Absolute Granulocytes (1.4 - 6.5 /CUMM) 5.0 5.6 Absolute Lymphocytes (1.2 - 3.4 /CUMM) 2.1 1.7 Absolute Monocytes (0.10 - 0.60 /CUMM) 0.5 0.6 Absolute Eosinophils (0.0 - 0.7 /CUMM) 0.2 0.2 Absolute Basophils (0.0 - 0.2 /CUMM) 0.1 0 Assessment/Plan Assessment/Plan 47-year-old male status post incision and drainage of an infected puncture wound of the right foot with associated abscess with continued fevers and continued purulence locally in the wound. Patient was seen and evaluated at bedside. Given the persistent drainage from the wound and his 2 fevers since his last procedure, I'm clinically suspicious of her continued abscess dorsally in the intermetatarsal space, and we'll take the patient for an incision and drainage later today. The patient should be nothing by mouth after breakfast. This was discussed with the primary team at 8:30 this morning, and discussed with Baldev Proctor MD shortly thereafter. Surgical wound was packed and dressed with a dry sterile dressing after being copiously irrigated with normal saline I will continue to follow the patient daily until he is discharged, and I will take further culture specimens as needed including bone biopsies based on intraoperative suspicions of osteomyelitis. I would recommend regardless of the outcome of these cultures at the patient recovered for MRSA based on his history , and the patient be placed on intravenous therapy based on his comorbidities and the extent of the continued infection despite antibiosis. Core Measures Venous Thromboembolism VTE Risk Factors Age>40 No Mechanical VTE Prophylaxis d/t N/A MechProphylax Ordered No VTE Pharm Prophylaxis d/t Surgical Contraindication
[2018-01-12 13:18] VITALS: BP 106/54
--- NOTE | 2018-01-12 13:42 | PN- Student ---
Subjective Subjective: Patient is feeling well. He had a good night sleep. No acute events ocurred overnight. ROS: See HPI Objective Objective: Vital Signs Date Time Temp Pulse Resp B/P B/P Pulse O2 O2 Flow FiO2 Mean Ox Delivery Rate 01/12 1318 98.2 77 20 106/54 96 Room Air 01/12 0814 82 104/62 01/12 0621 98.9 82 18 104/62 96 Room Air 01/11 2118 100.8 94 18 118/70 95 Room Air 01/11 1450 98.7 101 20 110/68 99 Room Air ED Intake and Output 01/12 0000 01/11 1200 Intake Total 1090 120 Output Total Balance 1090 120 Intake, IV 50 Intake, Oral 1040 120 Number 0 Bowel Movements Patient is cooperative and chatty. He is in no distress, alert and oriented x3. His blood sugar level was 92 at 7:33am. He had a fever spike yesterday night ( 100.8F) Results Results: Laboratory Tests 01/12/18 0825: CBC w Diff NO MAN DIFF REQ, RBC 4.02 L, MCV 89.2, MCH 30.9, MCHC 34.6, RDW 13.5 , MPV 9.9, Gran % 63.6, Lymphocytes % 26.9, Monocytes % 6.0, Eosinophils % 2.7, Basophils % 0.8, Absolute Granulocytes 5.0, Absolute Lymphocytes 2.1, Absolute Monocytes 0.5, Absolute Eosinophils 0.2, Absolute Basophils 0.1 01/11/18 0635: CBC w Diff NO MAN DIFF REQ, RBC 3.51 L, MCV 89.9, MCH 30.9, MCHC 34.4, RDW 13.3 , MPV 10.0, Gran % 69.0, Lymphocytes % 20.8, Monocytes % 7.4, Eosinophils % 2.4, Basophils % 0.4, Absolute Granulocytes 5.6, Absolute Lymphocytes 1.7, Absolute Monocytes 0.6, Absolute Eosinophils 0.2, Absolute Basophils 0 01/10/18 0805: Anion Gap 12, Estimated GFR > 60, BUN/Creatinine Ratio 21.4, CBC w Diff NO MAN DIFF REQ, RBC 3.82 L, MCV 89.9, MCH 30.6, MCHC 34.0, RDW 13.3, MPV 9.8, Gran % 72.8, Lymphocytes % 17.3 L, Monocytes % 7.5, Eosinophils % 2.0, Basophils % 0.4 , Absolute Granulocytes 6.6 H, Absolute Lymphocytes 1.6, Absolute Monocytes 0.7 H, Absolute Eosinophils 0.2, Absolute Basophils 0 Micro: - Blood culture: Gram + cocci in clusters Assessment/Plan Assessment: Mendoza Dent is a 47 y/o male with a past medical history significant for 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 He was admitted because of right plantar open wounds that were not healing. He was taken to OR for I/D on 01/06 and on 01/08 again for wound closure. Quality Director saw him today and was able to drain 2cc of purulence from the surgical wound. He is going to take the patient for I/D later today to assess the status of the wound and will collect additional samples if needed. He recommends the patient to be covered for MRSA based on his history. Blood culture results came back today and they were positive for Gram + cocci in clusters. 1. R foot ulcer - Follow drilling superintendent recommendations - Continue IV antibiotics - Continue pain medications 2. Diabetes - Monitor blood sugar levels - Continue insulin regimen - Maintain diabetic diet 3. Fever - Monitor his temperature - Medication when needed
--- NOTE | 2018-01-12 14:10 | PN- Infect Dx ---
Subjective Subjective: MAXIMUM TEMPERATURE 100.8. He notes some discomfort in the right foot today since manipulation at the bedside this morning by Podiatry Objective Last 24 Hrs of Vital Signs/I&O Vital Signs Date Time Temp Pulse Resp B/P B/P Pulse O2 O2 Flow FiO2 Mean Ox Delivery Rate 01/12 1318 98.2 77 20 106/54 96 Room Air 01/12 0814 82 104/62 01/12 0621 98.9 82 18 104/62 96 Room Air 01/11 2118 100.8 94 18 118/70 95 Room Air 01/11 1450 98.7 101 20 110/68 99 Room Air Intake & Output 01/12 1600 01/12 0800 01/12 0000 Intake Total 260 240 Output Total Balance 260 240 Intake, IV 20 Intake, Oral 240 240 Physical Exam Other Physical Findings: He appears comfortable in no acute distress Lungs are clear Heart regular rhythm with no murmur Extremities right foot dressing intact Results Last 24 Hours of Lab Results: Laboratory Tests 01/12 0825 Hematology CBC w Diff NO MAN DIFF REQ WBC (4.8 - 10.8 /CUMM) 7.8 RBC (4.70 - 6.10 /CUMM) 4.02 L Hgb (14.0 - 18.0 G/DL) 12.4 L Hct (42 - 52 %) 35.8 L MCV (80.0 - 94.0 FL) 89.2 MCH (27.0 - 31.0 PG) 30.9 MCHC (33.0 - 37.0 G/DL) 34.6 RDW (11.5 - 14.5 %) 13.5 Plt Count (130 - 400 /CUMM) 197 MPV (7.4 - 10.4 FL) 9.9 Gran % (42.2 - 75.2 %) 63.6 Lymphocytes % (20.5 - 51.1 %) 26.9 Monocytes % (1.7 - 9.3 %) 6.0 Eosinophils % (0 - 5 %) 2.7 Basophils % (0.0 - 2.0 %) 0.8 Absolute Granulocytes (1.4 - 6.5 /CUMM) 5.0 Absolute Lymphocytes (1.2 - 3.4 /CUMM) 2.1 Absolute Monocytes (0.10 - 0.60 /CUMM) 0.5 Absolute Eosinophils (0.0 - 0.7 /CUMM) 0.2 Absolute Basophils (0.0 - 0.2 /CUMM) 0.1 Last 24 Hours of [place] Results: Blood cultures January 08 one bottle positive for gram-positive cocci in clusters Assessment/Plan ID Impression: Low-grade fever last night with white blood cell count remaining normal now 4 days status post I&D/washout of the puncture wound of the right foot with primary closure after an initial I&D 2 days earlier, with the culture from that I&D positive for MSSA and Group B strep. His positive blood culture may represent a contaminant, as it is 4 days old, but it could represent Staph aureus and will await the final identification. He remains on Cefazolin, which can be continued pending this result. He is scheduled for a return to the OR later today for further I&D. Note there was no evidence on MRI or in the OR for any involvement of bone but will await the OR findings from today. Suggestion: 1. Follow-up final blood culture results 2. Await further I&D/possible bone biopsy in the OR later today 3. Continue Cefazolin pending above
--- NOTE | 2018-01-12 17:56 | Operative Report ---
Operative/Inv Procedure Report Surgery Date: 01/12/18 Name of Procedure: #1 incision and drainage right foot #2 Excisional debridement down to bone, right forefoot Pre-Operative Diagnosis: Infected puncture wound right foot with associated abscess, R/o osteomyelitis right foot Post-Operative Diagnosis: Infected puncture wound right foot with associated abscess, R/o osteomyelitis right foot Estimated Blood Loss: less than 50ml Surgeon/[employer] Panels: Elver Magdaleno DPM Anesthesia: moderate sedation, 18 mL 50-50 mixture of 2% lidocaine, 0.5% Marcaine plain Specimens: Bone biopsy, right third metatarsal Microbiology: #1 deep tissue culture, right foot #2 bone culture, right third metatarsal Tourniquet: None Complications: None Condition: Stable Operative Indication: This is a patient with an infected puncture wound that was admitted on January 05, is now status post multiple I&D's on the and . The patient has had sustained fevers on Thursday night of 103.3 Fahrenheit and on Thursday evening of 100.8 Fahrenheit. The patient is also developed new onset dusky erythema over the second intermetatarsal space dorsally as well as a small amount of purulence at the distal aspect of the wound, and thus a prompt revisional incision and drainage was warranted. The patient also registered positive blood culture earlier today. Operative/Procedure Note Note: After the right foot was prepped and draped in the usual sterile manner, attention was directed to the dorsal aspect of the right forefoot in the second intermetatarsal space. An additional 6 cm incision was made over the second intermetatarsal space through the second web space and adjoining the plantar incision previously made from his other procedures. This was full-thickness including division of the deep transverse metatarsal ligament and the second and third metatarsals were splayed gently using a curved hemostat to visualize the entirety of the connective tissue planes relevant to the plantar wound. 2 small foci of necrotic tissue with some purulence were found just deep to the ulceration in the plantar spaces medial and lateral to where purulence had been found distally in the wound, and these were excisionally debrided with a rongeur and aggressively expressed and all fascial planes, and portions of this were sent as a deep tissue specimen. Despite the dusky erythema over the second intermetatarsal space the dorsal tissue appears viable and further aggressive expression do not reveal any further purulence. The entirety of the wound was then excisionally debrided with a new rongeur. Upon completion of this debridement, the medial aspect of the third metatarsal head was found to be exposed, and additional specimens for bone culture and bone biopsy were taken at that time. The surgical wound was then pulse irrigated with 3 L combination of normal saline and triple antibiotic solution, and retention sutures made of 3-0 nylon were placed along the dorsal aspect of the incision using a simple interrupted technique. The plantar wound was left open and packed with 1 inch plain packing , the remainder of the wound was dressed with 4 x 4 gauze, fluff, 3 AVD pads, a roll of Kerlix, and a sterile 4 inch Brian bandage. Discharge Disposition: PACU Additional Comments: Based on intraoperative examination, the findings were less robust than I had anticipated compared to this morning when I was able to express purulence from the distal aspect of the wound, particularly in the dorsal tissues where there was new onset dusky erythema and a bulla. Given that the patient registered a positive blood culture today and did not have as much devitalized tissue in the area as I had anticipated, his continued fevers may be from the bacteremia. We will follow-up the intraoperative specimens. I will discuss the case with Dr. Proctor tomorrow after I round on the patient to ensure he does not need further surgical treatment.
[2018-01-12 19:30] VITALS: BP 110/60
[2018-01-13 06:23] VITALS: BP 118/72
--- NOTE | 2018-01-13 07:57 | PN- Diabetes ---
Assessment/Plan Diabetes Assessment: This 47-year-old patient with history diabetes with severe complications was admitted with a foot ulcer. He had further surgery yesterday. When he is eating, he is currently on Levemir 45 units twice a day and sliding scale NovoLog starting with 10 units before meals. He also has a separate bedtime sliding scale. The patient's fingerstick blood sugar is 159 this morning. He is apparently still n.p.o. considering possible further foot surgery today. Plan: The patient apparently is still n.p.o. because he may go back to the OR today. Continue Levemir 45 units twice a day. Continue D5 half normal saline IV fluids as written. Continue NovoLog coverage every 4 hours while n.p.o. When the patient is eating again, place the patient back on his sliding scale NovoLog before meals with a separate sliding scale at bedtime as previously written in Dr. Griffith's note yesterday. After observing his blood sugars today further adjustments may be necessary. Subjective Subjective: Has some pain in foot Review of Systems Constitutional: Denies: chills, fever. Cardiovascular: Denies: chest pain. Respiratory: Denies: short of breath. Gastrointestinal: Denies: nausea, vomiting. Skin: Reports: no symptoms. Objective Last 24 Hrs of Vital Signs/I&O Vital Signs Date Time Temp Pulse Resp B/P B/P Pulse O2 O2 Flow FiO2 Mean Ox Delivery Rate 01/13 0623 100.0 104 24 118/72 95 Room Air 01/12 1930 97.9 80 14 110/60 98 Room Air 01/12 1318 98.2 77 20 106/54 96 Room Air 01/12 0814 82 104/62 Intake & Output 01/13 1600 01/13 0800 01/13 0000 Intake Total 870 Output Total Balance 870 Intake, IV 150 Intake, Oral 720 Number 0 Bowel Movements Vital Signs Date Time Temp Pulse Resp B/P B/P Pulse O2 O2 Flow FiO2 Mean Ox Delivery Rate 01/13 0623 100.0 104 24 118/72 95 Room Air 01/12 1930 97.9 80 14 110/60 98 Room Air 01/12 1318 98.2 77 20 106/54 96 Room Air 01/12 0814 82 104/62 Intake & Output 01/13 0800 01/13 0000 01/12 1600 Intake Total 870 700 Output Total 500 Balance 870 200 Intake, IV 150 200 Intake, Oral 720 500 Number 0 Bowel Movements Output, Urine 500 Physical Exam General Appearance: alert, awake, comfortable Head: normal appearance Neck: normal inspection Cardiovascular: regular rate/rhythm Abdomen: normal bowel sounds Current Medications: Current Medications Sig/[place] Start time Last Medication Dose Route Stop Time Status Admin Acetaminophen 325 MG Q6P PRN 01/08 1800 AC 01/09 PO 2106 Atorvastatin Calcium 20 MG AT BEDTIME 01/06 2200 AC 01/12 PO 2213 Cefazolin Sodium 1,000 MG IQ8 01/11 0000 AC 01/12 IV 2348 Dextrose/Sodium 1,000 ML Q20H 01/13 0730 AC Chloride IV Dextrose/Sodium 1,000 ML Q20H 01/12 1030 DC 01/12 Chloride IV 1035 Docusate Sodium 100 MG DAILY NEEDED PRN 01/11 2015 AC 01/11 PO 213 Fentanyl Citrate 200 MCG .STK-MED ONE 01/12 1641 DC IM 01/12 1642 Heparin Sodium 5,000 UNIT Q8 01/12 2200 DC 01/13 (Porcine) SC 0517 Heparin Sodium 5,000 UNIT Q8 01/08 1445 DC 01/12 (Porcine) SC 01/12 1500 0541 Insulin Aspart 0 Q4 01/13 1000 AC SC Insulin Aspart 0 TIDAC/HS 01/13 0800 CAN SC Insulin Aspart 0 Q4 01/12 1400 DC 01/13 SC 0530 Insulin Aspart 0 TIDAC/HS 01/09 1700 DC 01/12 SC 0814 Insulin Detemir 45 UNITS BID 01/12 0900 AC 01/12 SC 2234 Insulin Detemir 50 UNITS BID 01/09 2100 DC 01/12 SC 0813 Levothyroxine Sodium 0.1 MG DAILY AC 01/06 0700 AC 01/13 PO 0517 Lisinopril 5 MG DAILY 01/06 1000 AC 01/12 PO 0814 Midazolam HCl 2 MG .STK-MED ONE 01/12 1641 DC IM 01/12 1642 Morphine Sulfate 2 MG Q6P PRN 01/06 1230 AC 01/12 IV 1556 Oxycodone/ 1 TAB Q6P PRN 01/07 0900 AC 01/13 Acetaminophen PO 0430 Pregabalin 150 MG BID 01/07 0900 AC 01/12 PO 2213 Senna 187 MG AT BEDTIME 01/11 2100 AC 01/12 PO 2214 Trazodone HCl 50 MG AT BEDTIME 01/07 2100 AC 01/12 PO 2213 Findings Pertinent Lab/Pelon Results: Laboratory Tests 01/13 01/12 0645 0825 Chemistry Sodium Pending Potassium Pending Chloride Pending Carbon Dioxide Pending Anion Gap Pending BUN Pending Creatinine Pending BUN/Creatinine Ratio Pending Hematology CBC w Diff Pending NO MAN DIFF REQ WBC (4.8 - 10.8 /CUMM) Pending 7.8 RBC (4.70 - 6.10 /CUMM) Pending 4.02 L Hgb (14.0 - 18.0 G/DL) Pending 12.4 L Hct (42 - 52 %) Pending 35.8 L MCV (80.0 - 94.0 FL) Pending 89.2 MCH (27.0 - 31.0 PG) Pending 30.9 MCHC (33.0 - 37.0 G/DL) Pending 34.6 RDW (11.5 - 14.5 %) Pending 13.5 Plt Count (130 - 400 /CUMM) Pending 197 MPV (7.4 - 10.4 FL) Pending 9.9 Gran % (42.2 - 75.2 %) 63.6 Lymphocytes % (20.5 - 51.1 %) 26.9 Monocytes % (1.7 - 9.3 %) 6.0 Eosinophils % (0 - 5 %) 2.7 Basophils % (0.0 - 2.0 %) 0.8 Absolute Granulocytes (1.4 - 6.5 /CUMM) 5.0 Absolute Lymphocytes (1.2 - 3.4 /CUMM) 2.1 Absolute Monocytes (0.10 - 0.60 /CUMM) 0.5 Absolute Eosinophils (0.0 - 0.7 /CUMM) 0.2 Absolute Basophils (0.0 - 0.2 /CUMM) 0.1
--- NOTE | 2018-01-13 09:09 | PN- Housestaff ---
Subjective Follow-up For: R foot wound staph aureus and gbs positive Positive blood cx Subjective: No acute events overnight. Worst pain of R foot. No fevers or headaches. Review of Systems Constitutional: Reports: see HPI. Objective Last 24 Hrs of Vital Signs/I&O Vital Signs Date Time Temp Pulse Resp B/P B/P Pulse O2 O2 Flow FiO2 Mean Ox Delivery Rate 01/13 1433 98.2 81 18 114/70 94 Room Air 01/13 0623 100.0 104 24 118/72 95 Room Air 01/12 1930 97.9 80 14 110/60 98 Room Air Intake & Output 01/13 1600 01/13 0800 01/13 0000 Intake Total 20 870 Output Total 200 Balance -180 870 Intake, IV 20 150 Intake, Oral 720 Number 0 0 Bowel Movements Output, Urine 200 Physical Exam General Appearance: Alert, Oriented X3, Cooperative Cardiovascular: Regular Rate, Normal S1, Normal S2 Lungs: Clear to Auscultation, Normal Air Movement Abdomen: Normal Bowel Sounds, Soft, No Tenderness Extremities: R foot covered in dressing Vascular: 1+ radial pulses Current Medications: Current Medications Sig/[place] Start time Last Medication Dose Route Stop Time Status Admin Acetaminophen 325 MG Q6P PRN 01/08 1800 AC 01/09 PO 2106 Atorvastatin Calcium 20 MG AT BEDTIME 01/06 2200 AC 01/12 PO 2213 Cefazolin Sodium 2,000 MG IQ8 01/13 1600 CAN IV Cefazolin Sodium 2 GM IQ8 01/13 1600 AC N/A 1 UNIT IV Cefazolin Sodium 1,000 MG IQ8 01/11 0000 DC 01/13 IV 0821 Dextrose/Sodium 1,000 ML Q20H 01/13 0815 DC Chloride IV Dextrose/Sodium 1,000 ML Q20H 01/13 0730 DC Chloride IV Dextrose/Sodium 1,000 ML Q20H 01/12 1030 DC 01/12 Chloride IV 1035 Docusate Sodium 100 MG DAILY NEEDED PRN 01/11 2015 AC 01/11 PO 2137 Fentanyl Citrate 200 MCG .STK-MED ONE 01/12 1641 DC IM 01/12 1642 Heparin Sodium 5,000 UNIT Q8 01/13 1400 AC 01/13 (Porcine) SC 1435 Heparin Sodium 5,000 UNIT Q8 01/12 2200 DC 01/13 (Porcine) SC 0517 Insulin Aspart 0 TIDAC/HS 01/13 1200 AC 01/13 SC 1435 Insulin Aspart 0 Q4 01/13 1000 DC SC Insulin Aspart 0 TIDAC/HS 01/13 0800 CAN SC Insulin Aspart 0 Q4 01/12 1400 DC 01/13 SC 0530 Insulin Detemir 45 UNITS BID 01/12 0900 AC 01/13 SC 0821 Levothyroxine Sodium 0.1 MG DAILY AC 01/06 0700 AC 01/13 PO 0517 Lisinopril 5 MG DAILY 01/06 1000 AC 01/13 PO 0820 Midazolam HCl 2 MG .STK-MED ONE 01/12 1641 DC IM 01/12 1642 Morphine Sulfate 2 MG Q6P PRN 01/06 1230 DC 01/12 IV 1556 Oxycodone/ 2 TAB Q6P PRN 01/13 1000 AC Acetaminophen PO Oxycodone/ 1 TAB Q6P PRN 01/07 0900 AC 01/13 Acetaminophen PO 1110 Pregabalin 150 MG BID 01/07 0900 AC 01/13 PO 0821 Senna 187 MG AT BEDTIME 01/11 2100 AC 01/12 PO 2214 Trazodone HCl 50 MG AT BEDTIME 01/07 2100 AC 01/12 PO 2213 Last 24 Hrs of Lab/Pelon Results Last 24 Hrs of Labs/Mics: Laboratory Tests 01/13/18 0645: Anion Gap 13, Estimated GFR > 60, BUN/Creatinine Ratio 18.6, CBC w Diff NO MAN DIFF REQ, RBC 3.66 L, MCV 89.7, MCH 30.5, MCHC 34.0, RDW 13.1, MPV 10.2, Gran % 73.0, Lymphocytes % 16.1 L, Monocytes % 7.8, Eosinophils % 2.6, Basophils % 0.5 , Absolute Granulocytes 6.4, Absolute Lymphocytes 1.4, Absolute Monocytes 0.7 H , Absolute Eosinophils 0.2, Absolute Basophils 0 Microbiology 01/13 0535 BLOOD: Blood Culture - RECD 01/13 515 BLOOD: Blood Culture - RECD 01/12 1721 EXTREMITIE: Gross Specimen Examination - RES BETA STREP GROUP B STAPH AUREUS 01/12 1721 EXTREMITIE: Gram Stain - RES 01/12 1714 EXTREMITIE: Gross Specimen Examination - RES BETA STREP GROUP B 01/12 1714 EXTREMITIE: Gram Stain - RES Assessment/Plan Assessment: 47 yo m with a PMH significant for right foot osteomyelitis positive for MRSA, hypothyroidism, peripheral neuropathy, diabetic retinopathy s/p laser photocoagulation, IDDM, HTN, chronic back pain after an occupational injury presenting for right foot plantar ulcer with possible cellulitis vs abscess s/p debridement. Problems: R foot ulcer s/p injury with ?cellulitis/osteo Bacteremia - staph Plan: -will be taken back to OR tomorrow. NPO tonight -blood cx positive for staph -bonx cx positive for GBS. tissue positive for staph and BS -obtain echo for endocarditis -increase cefazolin to 2gmq8. Fever 101.2 last night -blood sugars well controlled. will discharge with same regimen. -OR cx growing staph aureus and GBS -seen by vascular surgery, no f/u needed -changed pain meds to home reigmen of percs, lyrica, gabapentin and trazodone for sleep -continue endocrinology recommendations for blood sugar control -s/p I+D and washout with primary closure -hemoglobin A1c 10.3 -Lactic acid 2.7, 1.1 -CRP 2.0 -Foot x-ray shows shock tissue gas, foreign bodies. MRI negative for osteomyelitis, shows cellulitis -Venous Doppler negative, arterial Doppler reveals PVD -Consider vascular consult -cont home lisinopril for htn Diet: Diabetic Code: FULL DVT ppx: heparin subq Problem List: 1. Osteomyelitis of right foot 2. Sepsis Pain Ratin Pain Location: R foot Pain Goal: Pain 4 or less Pain Plan: perc Tomorrow's Labs & Rationales: cbc
[2018-01-13 09:30] LABS: ABSOLUTE BASOPHIL COUNT 0 /CUMM (0.0-0.2); ABSOLUTE EOSINOPHIL COUNT 0.2 /CUMM (0.0-0.7); ABSOLUTE GRANULOCYTE CT 6.4 /CUMM (1.4-6.5); ABSOLUTE LYMPH COUNT 1.4 /CUMM (1.2-3.4); ABSOLUTE MONOCYTE COUNT 0.7 /CUMM (0.10-0.60); BASOPHIL % 0.5 % (0.0-2.0); EOSINOPHIL % 2.6 % (0-5); HEMATOCRIT 32.8 % (42-52); MEAN CORPUSCULAR HGB 30.5 PG (27.0-31.0); MEAN CORPUSCULAR VOLUME 89.7 FL (80.0-94.0); MEAN PLATELET VOLUME 10.2 FL (7.4-10.4); PLATELET COUNT 223 /CUMM (130-400); RBC DISTRIBUTION WIDTH 13.1 % (11.5-14.5); RED BLOOD CELL CT 3.66 /CUMM (4.70-6.10); WHITE BLOOD CELL COUNT 8.7 /CUMM (4.8-10.8)
--- NOTE | 2018-01-13 10:44 | PN- Podiatry ---
Subjective Subjective: Patient seen and evaluated status post revisional incision and drainage over the second intermetatarsal space of the right foot for the treatment of an infected puncture wound with an associated abscess. Patient denies pain at the surgical site. MAXIMUM TEMPERATURE 100 Fahrenheit overnight. Patient denies fever, chills, nausea, vomiting, diaphoresis, shortness of breath, chest pain at the time of my examination. Review of Systems: A 14 point review of systems was performed, and was found to be negative apart from the patient's complaints described above in the history of present illness. Objective Vital Signs and I&Os Vital Signs Date Time Temp Pulse Resp B/P B/P Pulse O2 O2 Flow FiO2 Mean Ox Delivery Rate 01/13 0623 100.0 104 24 118/72 95 Room Air 01/12 1930 97.9 80 14 110/60 98 Room Air 01/12 1318 98.2 77 20 106/54 96 Room Air Intake & Output 01/13 1600 01/13 0800 / 0000 01/12 1600 01/12 0800 01/12 0000 Intake Total 870 700 260 240 Output Total 500 Balance 870 200 260 240 Intake, IV 150 200 20 Intake, Oral 720 500 240 240 Number 0 Bowel Movements Output, Urine 500 Physical Exam: Neurovascular status and musculoskeletal exam are unchanged. The surgical wound remains clean dry and intact, the dusky erythema has receded, there is some residual bullous changes along the incision line at the level of the webspace, but no purulence, minimal edema, no fluctuance, no crepitus, no malodor, no calor. Current Medications: Current Medications Sig/[place] Start time Last Medication Dose Route Stop Time Status Admin Acetaminophen 325 MG Q6P PRN 01/08 1800 AC 01/09 PO 210 Atorvastatin Calcium 20 MG AT BEDTIME 01/06 2200 AC 01/12 PO 2213 Cefazolin Sodium 1,000 MG IQ8 01/11 0000 AC 01/13 IV 0821 Dextrose/Sodium 1,000 ML Q20H 01/13 0815 AC Chloride IV Dextrose/Sodium 1,000 ML Q20H 01/13 0730 DC Chloride IV Dextrose/Sodium 1,000 ML Q20H 01/12 1030 DC 01/12 Chloride IV 1035 Docusate Sodium 100 MG DAILY NEEDED PRN 01/11 2015 AC 01/11 PO 2136 Fentanyl Citrate 200 MCG .[facility]-MED ONE 01/12 1641 DC IM 01/12 1642 Heparin Sodium 5,000 UNIT Q8 01/12 2200 DC 01/13 (Porcine) SC 0517 Heparin Sodium 5,000 UNIT Q8 01/08 1445 DC 01/12 (Porcine) SC 01/12 1500 0541 Insulin Aspart 0 Q4 01/13 1000 AC SC Insulin Aspart 0 TIDAC/HS 01/13 0800 CAN SC Insulin Aspart 0 Q4 01/12 1400 DC 01/13 SC 0530 Insulin Detemir 45 UNITS BID 01/12 0900 AC 01/13 SC 0821 Levothyroxine Sodium 0.1 MG DAILY AC 01/06 0700 AC 01/13 PO 0517 Lisinopril 5 MG DAILY 01/06 1000 AC 01/13 PO 0820 Midazolam HCl 2 MG .[employer] ONE 01/12 1641 DC IM 01/12 1642 Morphine Sulfate 2 MG Q6P PRN 01/06 1230 DC 01/12 IV 1556 Oxycodone/ 2 TAB Q6P PRN 01/13 1000 AC Acetaminophen PO Oxycodone/ 1 TAB Q6P PRN 01/07 0900 AC 01/13 Acetaminophen PO 0430 Pregabalin 150 MG BID 01/07 0900 AC 01/13 PO 0821 Senna 187 MG AT BEDTIME 01/11 2100 AC 01/12 PO 2214 Trazodone HCl 50 MG AT BEDTIME 01/07 2100 AC 01/12 PO 2213 Results Last 48 Hours of Labs: Laboratory Tests 01/13 01/12 0645 0825 Chemistry Sodium (137 - 145 mmol/L) 139 Potassium (3.5 - 5.1 mmol/L) 4.0 Chloride (98 - 107 mmol/L) 101 Carbon Dioxide (22 - 30 mmol/L) 25 Anion Gap (5 - 16) 13 BUN (9 - 20 mg/dL) 13 Creatinine (0.7 - 1.2 mg/dL) 0.7 Estimated GFR (>60 ml/min) > 60 BUN/Creatinine Ratio (7 - 25 %) 18.6 Hematology CBC w Diff NO MAN DIFF REQ NO MAN DIFF REQ WBC (4.8 - 10.8 /CUMM) 8.7 7.8 RBC (4.70 - 6.10 /CUMM) 3.66 L 4.02 L Hgb (14.0 - 18.0 G/DL) 11.1 L 12.4 L Hct (42 - 52 %) 32.8 L 35.8 L MCV (80.0 - 94.0 FL) 89.7 89.2 MCH (27.0 - 31.0 PG) 30.5 30.9 MCHC (33.0 - 37.0 G/DL) 34.0 34.6 RDW (11.5 - 14.5 %) 13.1 13.5 Plt Count (130 - 400 /CUMM) 223 197 MPV (7.4 - 10.4 FL) 10.2 9.9 Gran % (42.2 - 75.2 %) 73.0 63.6 Lymphocytes % (20.5 - 51.1 %) 16.1 L 26.9 Monocytes % (1.7 - 9.3 %) 7.8 6.0 Eosinophils % (0 - 5 %) 2.6 2.7 Basophils % (0.0 - 2.0 %) 0.5 0.8 Absolute Granulocytes (1.4 - 6.5 /CUMM) 6.4 5.0 Absolute Lymphocytes (1.2 - 3.4 /CUMM) 1.4 2.1 Absolute Monocytes (0.10 - 0.60 /CUMM) 0.7 H 0.5 Absolute Eosinophils (0.0 - 0.7 /CUMM) 0.2 0.2 Absolute Basophils (0.0 - 0.2 /CUMM) 0 0.1 Assessment/Plan Assessment/Plan 47-year-old uncontrolled diabetic male with peripheral vascular disease status post revascularization, with an infected puncture wound to the right foot status post multiple incision and drainage and washouts, with positive blood culture for staph aureus. Patient is seen and evaluated at bedside. Surgical wound was expressed, and no further purulence was found, the wound was further irrigated with 500 mL of normal saline and packed with 1 inch plain packing. This was then dressed with well-padded dry sterile dressing. Patient to continue to walk to the bathroom and back and a flat surgical shoe and walker as tolerated. The patient will be returned first thing tomorrow morning for 1 more washout, and hopefully he'll be cleared for discharge shortly after that point. Case was d/w Dr. Proctor this am. Patient will require long-term IV antibiotics secondary to the positive blood culture, but we'll continue to follow up the intraoperative specimens from yesterday. Core Measures Venous Thromboembolism VTE Risk Factors Age>40 No Mechanical VTE Prophylaxis d/t N/A MechProphylax Ordered No VTE Pharm Prophylaxis d/t Surgical Contraindication
--- NOTE | 2018-01-13 10:45 | PN- Infect Dx ---
Subjective Subjective: MAXIMUM TEMPERATURE 100. He complains of severe pain in the right foot Objective Last 24 Hrs of Vital Signs/I&O Vital Signs Date Time Temp Pulse Resp B/P B/P Pulse O2 O2 Flow FiO2 Mean Ox Delivery Rate 01/13 06 100.0 104 24 118/72 95 Room Air 01/12 1930 97.9 80 14 110/60 98 Room Air 01/12 1318 98.2 77 20 106/54 96 Room Air Intake & Output 01/13 1600 01/13 0800 01/13 0000 Intake Total 870 Output Total Balance 870 Intake, IV 150 Intake, Oral 720 Number 0 Bowel Movements Physical Exam Other Physical Findings: He appears mildly uncomfortable but in no acute distress Lungs are clear Heart regular rhythm with no murmur Extremities right foot dressing intact Results Last 24 Hours of Lab Results: Laboratory Tests 01/13 645 Chemistry Sodium (137 - 145 mmol/L) 139 Potassium (3.5 - 5.1 mmol/L) 4.0 Chloride (98 - 107 mmol/L) 101 Carbon Dioxide (22 - 30 mmol/L) 25 Anion Gap (5 - 16) 13 BUN (9 - 20 mg/dL) 13 Creatinine (0.7 - 1.2 mg/dL) 0.7 Estimated GFR (>60 ml/min) > 60 BUN/Creatinine Ratio (7 - 25 %) 18.6 Hematology CBC w Diff NO MAN DIFF REQ WBC (4.8 - 10.8 /CUMM) 8.7 RBC (4.70 - 6.10 /CUMM) 3.66 L Hgb (14.0 - 18.0 G/DL) 11.1 L Hct (42 - 52 %) 32.8 L MCV (80.0 - 94.0 FL) 89.7 MCH (27.0 - 31.0 PG) 30.5 MCHC (33.0 - 37.0 G/DL) 34.0 RDW (11.5 - 14.5 %) 13.1 Plt Count (130 - 400 /CUMM) 223 MPV (7.4 - 10.4 FL) 10.2 Gran % (42.2 - 75.2 %) 73.0 Lymphocytes % (20.5 - 51.1 %) 16.1 L Monocytes % (1.7 - 9.3 %) 7.8 Eosinophils % (0 - 5 %) 2.6 Basophils % (0.0 - 2.0 %) 0.5 Absolute Granulocytes (1.4 - 6.5 /CUMM) 6.4 Absolute Lymphocytes (1.2 - 3.4 /CUMM) 1.4 Absolute Monocytes (0.10 - 0.60 /CUMM) 0.7 H Absolute Eosinophils (0.0 - 0.7 /CUMM) 0.2 Absolute Basophils (0.0 - 0.2 /CUMM) 0 Last 24 Hours of [place] Results: Blood cultures January 08 one bottle positive for Staph aureus OR culture January 12 labeled right foot bone positive for Staph aureus and Group B strep OR culture January 12 labeled right foot deep tissue positive for Group B strep Assessment/Plan ID Impression: Low-grade fevers persist, with white blood cell count remaining normal, status post I&D and excisional debridement down to the bone of the right forefoot yesterday for apparent osteomyelitis, with the bone culture from the OR positive for Staph aureus and Group B strep and with his blood culture from 5 days ago positive for Staph aureus. He is now 1 week days status post initial I&D/washout of a puncture wound of his right foot, with his initial OR findings and MRI not suggestive of any bone involvement. He remains on Cefazolin, which can be continued, but at an increased dose, for osteomyelitis. Suggestion: 1. Follow-up final OR cultures 2. Echocardiogram 3. Further management/possible return to the OR in the a.m. per Podiatry 4. Increase Cefazolin to 2 g IV every 8 hours
--- NOTE | 2018-01-13 13:11 | PN- Att Addend ---
Attending Addendum Attending Brief Note Patient seen and examined, complaining of pain in the foot. He is only on one tablet of Percocet every 6 hours which we can increase. Patient spiked another fever. Blood cultures are positive for staph aureus. Vital Signs Date Time Temp Pulse Resp B/P B/P Pulse O2 O2 Flow FiO2 Mean Ox Delivery Rate 01/13 0623 100.0 104 24 118/72 95 Room Air 01/12 1930 97.9 80 14 110/60 98 Room Air 01/12 1318 98.2 77 20 106/54 96 Room Air on exam; aox3, nad. cv; s1,s2, rrr resp; clear abd; soft, nt, bs+ ext; no edema Laboratory Tests 01/13 0645 Chemistry Sodium (137 - 145 mmol/L) 139 Potassium (3.5 - 5.1 mmol/L) 4.0 Chloride (98 - 107 mmol/L) 101 Carbon Dioxide (22 - 30 mmol/L) 25 Anion Gap (5 - 16) 13 BUN (9 - 20 mg/dL) 13 Creatinine (0.7 - 1.2 mg/dL) 0.7 Estimated GFR (>60 ml/min) > 60 BUN/Creatinine Ratio (7 - 25 %) 18.6 Hematology CBC w Diff NO MAN DIFF REQ WBC (4.8 - 10.8 /CUMM) 8.7 RBC (4.70 - 6.10 /CUMM) 3.66 L Hgb (14.0 - 18.0 G/DL) 11.1 L Hct (42 - 52 %) 32.8 L MCV (80.0 - 94.0 FL) 89.7 MCH (27.0 - 31.0 PG) 30.5 MCHC (33.0 - 37.0 G/DL) 34.0 RDW (11.5 - 14.5 %) 13.1 Plt Count (130 - 400 /CUMM) 223 MPV (7.4 - 10.4 FL) 10.2 Gran % (42.2 - 75.2 %) 73.0 Lymphocytes % (20.5 - 51.1 %) 16.1 L Monocytes % (1.7 - 9.3 %) 7.8 Eosinophils % (0 - 5 %) 2.6 Basophils % (0.0 - 2.0 %) 0.5 Absolute Granulocytes (1.4 - 6.5 /CUMM) 6.4 Absolute Lymphocytes (1.2 - 3.4 /CUMM) 1.4 Absolute Monocytes (0.10 - 0.60 /CUMM) 0.7 H Absolute Eosinophils (0.0 - 0.7 /CUMM) 0.2 Absolute Basophils (0.0 - 0.2 /CUMM) 0 A/P: 47 y/o M with pmh sig for right foot osteomyelitis positive for MRSA, hypothyroidism, peripheral neuropathy, diabetic retinopathy s/p laser photocoagulation, IDDM, HTN, chronic back pain admitted with right foot plantar ulcer. Status post debridement and washout 2 times with podiatry. Cultures growing staph aureus and beta strep group G. Blood culture also positive for staph aureus which is MSSA in the wound culture. Patient has been kept on cefazolin. But ID, check echocardiogram because of now staph bacteremia. Patient to be taken to operating room again tomorrow for another washout. Isiah incresae the dose of percocet to two tabs. Diabetes/hyperglycemia mx per Endo. DVt px; hep sq.
--- NOTE | 2018-01-13 13:37 | PN- Student ---
Subjective Subjective: Patient is not feeling well. He is complaining of headaches, stiffness in his hands and sharp pain coming from his foot and radiating to the rest of his body. On a scale of 1-10, patient states is a 10. He is also complaining of thirst (he hasn't received food or water because he was placed on NPO d/t possible return to the OR). Furthermore, he states that he has been having polyuria and pain in his "kidneys". He denies chest pain, SOB, chills, nausea or palpitations. Objective Objective: Vital Signs Date Time Temp Pulse Resp B/P B/P Pulse O2 O2 Flow FiO2 Mean Ox Delivery Rate 01/13 0623 100.0 104 24 118/72 95 Room Air 01/12 1930 97.9 80 14 110/60 98 Room Air ED Intake and Output 01/13 0000 01/12 1200 Intake Total 1570 260 Output Total 500 Balance 1070 260 Intake, IV 350 20 Intake, Oral 1220 240 Number 0 Bowel Movements Output, Urine 500 Patient seems to be in mild distress. He is not the usual chatty and friendly person, he seems to be in pain. He is alert and oriented x3. He had a fever spike this morning (100F) and his blood glucose levels were 200 at 8:21am. Results Results: Laboratory Tests 01/13/18 0645: Anion Gap 13, Estimated GFR > 60, BUN/Creatinine Ratio 18.6, CBC w Diff NO MAN DIFF REQ, RBC 3.66 L, MCV 89.7, MCH 30.5, MCHC 34.0, RDW 13.1, MPV 10.2, Gran % 73.0, Lymphocytes % 16.1 L, Monocytes % 7.8, Eosinophils % 2.6, Basophils % 0.5 , Absolute Granulocytes 6.4, Absolute Lymphocytes 1.4, Absolute Monocytes 0.7 H , Absolute Eosinophils 0.2, Absolute Basophils 0 01/12/18 0825: CBC w Diff NO MAN DIFF REQ, RBC 4.02 L, MCV 89.2, MCH 30.9, MCHC 34.6, RDW 13.5 , MPV 9.9, Gran % 63.6, Lymphocytes % 26.9, Monocytes % 6.0, Eosinophils % 2.7, Basophils % 0.8, Absolute Granulocytes 5.0, Absolute Lymphocytes 2.1, Absolute Monocytes 0.5, Absolute Eosinophils 0.2, Absolute Basophils 0.1 01/11/18 0635: CBC w Diff NO MAN DIFF REQ, RBC 3.51 L, MCV 89.9, MCH 30.9, MCHC 34.4, RDW 13.3 , MPV 10.0, Gran % 69.0, Lymphocytes % 20.8, Monocytes % 7.4, Eosinophils % 2.4, Basophils % 0.4, Absolute Granulocytes 5.6, Absolute Lymphocytes 1.7, Absolute Monocytes 0.6, Absolute Eosinophils 0.2, Absolute Basophils 0 Microbiology 01/13 0535 BLOOD: Blood Culture - RECD 01/13 515 BLOOD: Blood Culture - RECD 01/12 1721 EXTREMITIE: Gross Specimen Examination - RES BETA STREP GROUP B STAPH AUREUS 01/12 1721 EXTREMITIE: Gram Stain - RES 01/12 1714 EXTREMITIE: Gross Specimen Examination - RES BETA STREP GROUP B 01/12 1714 EXTREMITIE: Gram Stain - RES Assessment/Plan Assessment: Mendoza Dent is a 47 y/o male with a past medical history significant for 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 He was admitted because of right plantar open wounds that were not healing. He was taken to OR for I/D on 01/06 and on 01/08 again for wound closure. Director Ship saw him yesterday and was able to drain 2cc of purulence from the surgical wound. Patient was taken for I/D yesterday to assess the status of the wound and 2 small foci of necrotic tissue with some purulence were found just deep to the ulceration in the plantar spaces medial and lateral to where purulence had been found distally in the wound. Samples of these tissues were obtained and the results came today showing growth of Beta Strep Group B. Samples of osseous tissue were also obtained and showed growth of Beta Strep Group B and S. aureus. Director Ship will perform 1 more washout tomorrow and Dr. Proctor decided to increase his dose of Cefazolin. 1. R foot ulcer - Follow up with [facility] winder - Increase IV Cafazolin (2g every 8 hrs) - Increase dosage of pain medications 2. Diabetes - Monitor blood sugar levels - Follow up with endo - Adjust insulin regimen - Maintain diabetic diet 3. Fever - Monitor his temperature - Medication when needed
[2018-01-13 14:33] VITALS: BP 114/70; BP 124/80
[2018-01-13 21:49] VITALS: BP 120/70
[2018-01-14 06:20] LABS: ABSOLUTE BASOPHIL COUNT 0.1 /CUMM (0.0-0.2); ABSOLUTE EOSINOPHIL COUNT 0.3 /CUMM (0.0-0.7); ABSOLUTE GRANULOCYTE CT 4.6 /CUMM (1.4-6.5); ABSOLUTE MONOCYTE COUNT 0.6 /CUMM (0.10-0.60); BASOPHIL % 0.7 % (0.0-2.0); EOSINOPHIL % 4.4 % (0-5); GRANULOCYTE % 60.7 % (42.2-75.2); HEMATOCRIT 32.6 % (42-52); MEAN CORPUSCULAR HGB 30.5 PG (27.0-31.0); MEAN CORPUSCULAR HGB CONC 34.3 G/DL (33.0-37.0); MEAN CORPUSCULAR VOLUME 89.2 FL (80.0-94.0); MEAN PLATELET VOLUME 9.1 FL (7.4-10.4); PLATELET COUNT 247 /CUMM (130-400); RBC DISTRIBUTION WIDTH 13.4 % (11.5-14.5); RED BLOOD CELL CT 3.66 /CUMM (4.70-6.10); WHITE BLOOD CELL COUNT 7.6 /CUMM (4.8-10.8)
[2018-01-14 07:13] VITALS: BP 114/68
--- NOTE | 2018-01-14 07:29 | PN- Housestaff ---
Yassine COLLAZO,[facility] 01/14/18 0729: Subjective Follow-up For: R foot wound staph aureus and gbs positive MRSA Bacteremia Subjective: No acute events overnight. Patient sleeping well. No pain. Review of Systems Constitutional: Reports: see HPI. Objective Last 24 Hrs of Vital Signs/I&O Vital Signs Date Time Temp Pulse Resp B/P B/P Pulse O2 O2 Flow FiO2 Mean Ox Delivery Rate 01/14 08 84 122/64 01/14 0713 98.2 83 18 114/68 98 01/13 2149 98.6 85 18 120/70 95 Room Air 01/13 1433 98.2 81 18 114/70 94 Room Air Intake & Output 01/14 1600 01/14 0800 01/14 0000 Intake Total 400 1110 Output Total Balance 400 1110 Intake, IV 400 150 Intake, Oral 960 Number 0 Bowel Movements Physical Exam General Appearance: Alert, Oriented X3, Cooperative Cardiovascular: Regular Rate, Normal S1, Normal S2 Lungs: Clear to Auscultation, Normal Air Movement Abdomen: Normal Bowel Sounds, Soft, No Tenderness Extremities: 2+ radial pulses Current Medications: Current Medications Sig/Quincy Start time Last Medication Dose Route Stop Time Status Admin Acetaminophen 325 MG Q6P PRN 01/08 1800 AC 01/09 PO 2106 Atorvastatin Calcium 20 MG AT BEDTIME 01/06 2200 AC 01/13 PO 2212 Cefazolin Sodium 2,000 MG IQ8 01/13 1600 CAN IV Cefazolin Sodium 2 GM IQ8 01/13 1600 AC 01/14 N/A 1 UNIT IV 0822 Cefazolin Sodium 1,000 MG IQ8 01/11 0000 DC 01/13 IV 0821 Dextrose/Sodium 1,000 ML Q20H 01/14 0005 01/14 Chloride IV 0055 Dextrose/Sodium 1,000 ML Q20H 01/13 0815 DC 01/13 Chloride IV 1806 Docusate Sodium 100 MG DAILY NEEDED PRN 01/11 2015 AC 01/11 PO 2137 Heparin Sodium 5,000 UNIT Q8 01/13 1400 DC 01/13 (Porcine) SC 01/14 0600 2213 Insulin Aspart 0 Q4 01/14 0005 AC 01/14 SC 0609 Insulin Aspart 0 TIDAC/HS 01/13 1200 DC 01/13 SC 01/14 0000 1806 Insulin Aspart 0 Q4 01/13 1000 DC SC Insulin Detemir 45 UNITS BID 01/12 0900 AC 01/14 SC 0823 Levothyroxine Sodium 0.1 MG DAILY AC 01/06 0700 AC 01/14 PO 0609 Lisinopril 5 MG DAILY 01/06 1000 AC 01/14 PO 0823 Morphine Sulfate 2 MG Q6P PRN 01/06 1230 DC 01/12 IV 1556 Oxycodone/ 2 TAB Q6P PRN 01/13 1000 AC 01/14 Acetaminophen PO 0609 Oxycodone/ 1 TAB Q6P PRN 01/07 0900 AC 01/13 Acetaminophen PO 2211 Pregabalin 150 MG BID 01/07 09 AC 01/14 PO 0823 Senna 187 MG AT BEDTIME 01/11 2100 AC 01/13 PO 221 Trazodone HCl 50 MG AT BEDTIME 01/07 2100 AC 01/13 PO 221 Last 24 Hrs of Lab/Pelon Results Last 24 Hrs of Labs/Mics: Laboratory Tests 01/14/18 0555: CBC w Diff NO MAN DIFF REQ, RBC 3.66 L, MCV 89.2, MCH 30.5, MCHC 34.3, RDW 13.4 , MPV 9.1, Gran % 60.7, Lymphocytes % 26.4, Monocytes % 7.8, Eosinophils % 4.4, Basophils % 0.7, Absolute Granulocytes 4.6, Absolute Lymphocytes 2.0, Absolute Monocytes 0.6, Absolute Eosinophils 0.3, Absolute Basophils 0.1 Assessment/Plan Assessment: 47 yo m with a PMH significant for right foot osteomyelitis positive for MRSA, hypothyroidism, peripheral neuropathy, diabetic retinopathy s/p laser photocoagulation, IDDM, HTN, chronic back pain after an occupational injury presenting for right foot plantar ulcer with possible cellulitis vs abscess s/p debridement. Problems: R foot ulcer s/p injury with ?cellulitis/osteo Bacteremia - staph Plan: -taken to OR today -blood cx positive for MRSA. Start vancomycin and by mouth metronidazole -bone cx positive for GBS. tissue positive for staph and BS -obtain echo for endocarditis -blood sugars well controlled. will discharge with same regimen. -seen by vascular surgery, no f/u needed -changed pain meds to home reigmen of percs, lyrica, gabapentin and trazodone for sleep. pain well controlled with 2 percs prn severe pain -continue endocrinology recommendations for blood sugar control -s/p I+D and washout with primary closure -hemoglobin A1c 10.3 -Lactic acid 2.7, 1.1 -CRP 2.0 -Foot x-ray shows shock tissue gas, foreign bodies. MRI negative for osteomyelitis, shows cellulitis -Venous Doppler negative, arterial Doppler reveals PVD -Consider vascular consult -cont home lisinopril for htn Diet: Diabetic Code: FULL DVT ppx: heparin subq Problem List: 1. Wound, open, foot 2. Bacteremia Pain Ratin Pain Location: no pain Pain Goal: Pain 4 or less Pain Plan: perc Tomorrow's Labs & Rationales: sarah Calderon MD,Judith 01/14/18 1347: Attending MD Review Statement Attending Statement Attending MD Statement: examined this patient, discuss w/resident/PA/REGISTRY NURSE, agreed w/resident/PA/REGISTRY NURSE, reviewed EMR data (avail), discussed with nursing, discussed with case mgmt, reviewed images, amended to note Attending Assessment/Plan: Patient seen and examined, pain is better controlled. Patient scheduled to go to OR again this afternoon with podiatry. Vital Signs Date Time Temp Pulse Resp B/P B/P Pulse O2 O2 Flow FiO2 Mean Ox Delivery Rate 01/14 0823 84 122/64 01/14 0713 98.2 83 18 114/68 98 01/13 2149 98.6 85 18 120/70 95 Room Air 01/13 1433 98.2 81 18 114/70 94 Room Air on exam; aox3, nad. cv; s1, s2, rrr resp; clear abd; soft, nt, bs+ ext; no edema, halima wrap on right foot. Laboratory Tests 01/14 0555 Hematology CBC w Diff NO MAN DIFF REQ WBC (4.8 - 10.8 /CUMM) 7.6 RBC (4.70 - 6.10 /CUMM) 3.66 L Hgb (14.0 - 18.0 G/DL) 11.2 L Hct (42 - 52 %) 32.6 L MCV (80.0 - 94.0 FL) 89.2 MCH (27.0 - 31.0 PG) 30.5 MCHC (33.0 - 37.0 G/DL) 34.3 RDW (11.5 - 14.5 %) 13.4 Plt Count (130 - 400 /CUMM) 247 MPV (7.4 - 10.4 FL) 9.1 Gran % (42.2 - 75.2 %) 60.7 Lymphocytes % (20.5 - 51.1 %) 26.4 Monocytes % (1.7 - 9.3 %) 7.8 Eosinophils % (0 - 5 %) 4.4 Basophils % (0.0 - 2.0 %) 0.7 Absolute Granulocytes (1.4 - 6.5 /CUMM) 4.6 Absolute Lymphocytes (1.2 - 3.4 /CUMM) 2.0 Absolute Monocytes (0.10 - 0.60 /CUMM) 0.6 Absolute Eosinophils (0.0 - 0.7 /CUMM) 0.3 Absolute Basophils (0.0 - 0.2 /CUMM) 0.1 A/P: 47 y/o M with pmh sig for right foot osteomyelitis positive for MRSA, hypothyroidism, peripheral neuropathy, diabetic retinopathy s/p laser photocoagulation, IDDM, HTN, chronic back pain admitted with right foot plantar ulcer. Status post debridement and washout 2 times with podiatry. Cultures growing staph aureus and beta strep group G. Blood Cx growing MRSA. Pt going to or again today with podiatry. As discussed with infectious disease, antibiotics will be switched to IV vancomycin and by mouth Flagyl. Blood sugars are stable. Insulin management per endocrinology. Pain management is adequate. Patient will require PICC line placement which will likely be done tomorrow. Continue other current meds. Will resume hep sq post op.
--- NOTE | 2018-01-14 10:44 | PN- Student ---
Subjective Subjective: Patient is feeling well. He had a good night sleep. No acute events ocurred overnight. ROS: See HPI Objective Objective: Vital Signs Date Time Temp Pulse Resp B/P B/P Pulse O2 O2 Flow FiO2 Mean Ox Delivery Rate 01/14 0823 84 122/64 01/14 0713 98.2 83 18 114/68 98 01/13 2149 98.6 85 18 120/70 95 Room Air 01/13 1433 98.2 81 18 114/70 94 Room Air ED Intake and Output 01/14 0000 01/13 1200 Intake Total 1130 Output Total 200 Balance 930 Intake, IV 170 Intake, Oral 960 Number 0 Bowel Movements Output, Urine 200 Patient is cooperative and chatty. He is in no distress, alert and oriented x3. His blood sugar level was 136 at 10:10am. Patient is NPO for OR later today. Results Results: Laboratory Tests 01/14/18 0555: CBC w Diff NO MAN DIFF REQ, RBC 3.66 L, MCV 89.2, MCH 30.5, MCHC 34.3, RDW 13.4 , MPV 9.1, Gran % 60.7, Lymphocytes % 26.4, Monocytes % 7.8, Eosinophils % 4.4, Basophils % 0.7, Absolute Granulocytes 4.6, Absolute Lymphocytes 2.0, Absolute Monocytes 0.6, Absolute Eosinophils 0.3, Absolute Basophils 0.1 01/13/18 0645: Anion Gap 13, Estimated GFR > 60, BUN/Creatinine Ratio 18.6, CBC w Diff NO MAN DIFF REQ, RBC 3.66 L, MCV 89.7, MCH 30.5, MCHC 34.0, RDW 13.1, MPV 10.2, Gran % 73.0, Lymphocytes % 16.1 L, Monocytes % 7.8, Eosinophils % 2.6, Basophils % 0.5 , Absolute Granulocytes 6.4, Absolute Lymphocytes 1.4, Absolute Monocytes 0.7 H , Absolute Eosinophils 0.2, Absolute Basophils 0 01/12/18 0825: CBC w Diff NO MAN DIFF REQ, RBC 4.02 L, MCV 89.2, MCH 30.9, MCHC 34.6, RDW 13.5 , MPV 9.9, Gran % 63.6, Lymphocytes % 26.9, Monocytes % 6.0, Eosinophils % 2.7, Basophils % 0.8, Absolute Granulocytes 5.0, Absolute Lymphocytes 2.1, Absolute Monocytes 0.5, Absolute Eosinophils 0.2, Absolute Basophils 0.1 Microbiology 01/13 05 BLOOD: Blood Culture - RECD 01/13 515 BLOOD: Blood Culture - RECD 01/12 1721 EXTREMITIE: Gross Specimen Examination - RES BETA STREP GROUP B STAPH AUREUS 01/12 1721 EXTREMITIE: Gram Stain - RES 01/12 1714 EXTREMITIE: Gross Specimen Examination - RES BETA STREP GROUP B STAPH AUREUS 01/12 1714 EXTREMITIE: Gram Stain - RES Assessment/Plan Assessment: Mendoza Dent is a 47 y/o male with a past medical history significant for 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 He was admitted because of right plantar open wounds that were not healing. He was taken to OR for I/D on 01/06 and on 01/08 again for wound closure. Furthermore, Principle Software Engineer saw him on 01/12 to assess the status of the wound and 2 small foci of necrotic tissue with some purulence were found just deep to the ulceration in the plantar spaces medial and lateral to where purulence had been found distally in the wound. Samples of these tissues were obtained and the results showed growth of Beta Strep Group B. Samples of osseous tissue were also obtained and showed growth of Beta Strep Group B and S. aureus. Principle Software Engineer will perform [address] Proctor decided to increase his dose of Cefazolin and the plan is to discharge him tomorrow on IV antibiotics. 1. R foot ulcer - Follow up with dye house hand after OR - Continue IV antibiotics - Manage pain 2. Diabetes - Monitor blood sugar levels - Follow up with endo - Mantain insulin regimen - Maintain diabetic diet
--- NOTE | 2018-01-14 10:57 | PN- Infect Dx ---
See Addendum Subjective Subjective: Afebrile. He feels well with pain in his right foot well controlled Objective Last 24 Hrs of Vital Signs/I&O Vital Signs Date Time Temp Pulse Resp B/P B/P Pulse O2 O2 Flow FiO2 Mean Ox Delivery Rate 01/14 0823 84 122/64 01/14 0713 98.2 83 18 114/68 98 01/13 2149 98.6 85 18 120/70 95 Room Air 01/13 1433 98.2 81 18 114/70 94 Room Air Intake & Output 01/14 1600 01/14 0800 01/14 0000 Intake Total 400 1110 Output Total Balance 400 1110 Intake, IV 400 150 Intake, Oral 960 Number 0 Bowel Movements Physical Exam Other Physical Findings: He appears comfortable in no acute distress Lungs are clear Heart regular rhythm with no murmur Extremities right foot dressing intact Results Last 24 Hours of Lab Results: Laboratory Tests 01/14 0555 Hematology CBC w Diff NO MAN DIFF REQ WBC (4.8 - 10.8 /CUMM) 7.6 RBC (4.70 - 6.10 /CUMM) 3.66 L Hgb (14.0 - 18.0 G/DL) 11.2 L Hct (42 - 52 %) 32.6 L MCV (80.0 - 94.0 FL) 89.2 MCH (27.0 - 31.0 PG) 30.5 MCHC (33.0 - 37.0 G/DL) 34.3 RDW (11.5 - 14.5 %) 13.4 Plt Count (130 - 400 /CUMM) 247 MPV (7.4 - 10.4 FL) 9.1 Gran % (42.2 - 75.2 %) 60.7 Lymphocytes % (20.5 - 51.1 %) 26.4 Monocytes % (1.7 - 9.3 %) 7.8 Eosinophils % (0 - 5 %) 4.4 Basophils % (0.0 - 2.0 %) 0.7 Absolute Granulocytes (1.4 - 6.5 /CUMM) 4.6 Absolute Lymphocytes (1.2 - 3.4 /CUMM) 2.0 Absolute Monocytes (0.10 - 0.60 /CUMM) 0.6 Absolute Eosinophils (0.0 - 0.7 /CUMM) 0.3 Absolute Basophils (0.0 - 0.2 /CUMM) 0.1 Last 24 Hours of Pelon Results: Blood cultures January 08 one bottle positive for Staph aureus Blood cultures 2 January 13 negative so far OR cultures January 12 labeled right foot bone and right foot deep tissue both positive for Staph aureus sensitive to Oxacillin and Group B strep, with the deep tissue culture also positive for gram-negative anaerobes Assessment/Plan ID Impression: Stable, with temperatures and white blood cell count normal, on Cefazolin for Staph aureus bacteremia and osteomyelitis of the right foot, now 2 days status post I&D and excisional debridement down to the bone of the right forefoot, and 8 days status post initial I&D of a puncture wound of the right foot, with his initial OR cultures positive for Staph aureus and Group B strep. The OR cultures from his most recent surgery are positive for Staph aureus, Group B strep and anaerobes and his antibiotics will need to be adjusted. He is scheduled for a return to the OR later today. Suggestion: 1. Await return to the OR later today for further I&D 2. Echocardiogram 3. Would pursue placement of a PICC in the a.m. if his recent blood cultures remain negative 4. Discontinue Cefazolin 5. Begin Unasyn 3 g IV every 6 hours
--- NOTE | 2018-01-14 13:07 | PN- Diabetes ---
Assessment/Plan Diabetes Assessment: The patient did not have further surgery yesterday. In studies going back to the operating room today. He is presently n.p.o. and on D5 half-normal saline at 75 cc an hour. He is on Levemir 45 units twice a day and sliding scale NovoLog every 4 hours while he is n.p.o. His most recent fingersticks show a glucose of 167 at 6 AM and 136 at 10 AM. Plan: Suggest continue the present regimen for now. When the patient is eating again place him back on his usual mealtime sliding scale with the separate bedtime sliding scale as previously written. Subjective Subjective: Feels okay Objective Last 24 Hrs of Vital Signs/I&O Vital Signs Date Time Temp Pulse Resp B/P B/P Pulse O2 O2 Flow FiO2 Mean Ox Delivery Rate 01/14 08 84 122/64 01/14 0713 98.2 83 18 114/68 98 01/13 2149 98.6 85 18 120/70 95 Room Air 01/13 1433 98.2 81 18 114/70 94 Room Air Intake & Output 01/14 1600 01/14 0800 01/14 0000 Intake Total 400 1110 Output Total Balance 400 1110 Intake, IV 400 150 Intake, Oral 960 Number 0 Bowel Movements Vital Signs Date Time Temp Pulse Resp B/P B/P Pulse O2 O2 Flow FiO2 Mean Ox Delivery Rate 01/14 823 84 122/64 01/14 0713 98.2 83 18 114/68 98 01/13 2149 98.6 85 18 120/70 95 Room Air 01/13 1433 98.2 81 18 114/70 94 Room Air Intake & Output 01/14 1600 01/14 0800 01/14 0000 Intake Total 400 1110 Output Total Balance 400 1110 Intake, IV 400 150 Intake, Oral 960 Number 0 Bowel Movements Physical Exam General Appearance: alert, awake, comfortable Head: normal appearance Neck: normal inspection Respiratory: normal breath sounds Cardiovascular: regular rate/rhythm Current Medications: Current Medications Sig/[place]in[place] Start time Last Medication Dose Route Stop Time Status Admin Acetaminophen 325 MG Q6P PRN 01/08 1800 AC 01/09 PO 210 Atorvastatin Calcium 20 MG AT BEDTIME 01/06 2200 AC 01/13 PO 221 Cefazolin Sodium 2,000 MG IQ8 01/13 1600 CAN IV Cefazolin Sodium 2 GM IQ8 01/13 1600 AC 01/14 N/A 1 UNIT IV 0822 Cefazolin Sodium 1,000 MG IQ8 01/11 0000 DC 01/13 IV 0821 Dextrose/Sodium 1,000 ML Q20H 01/14 0005 AC 01/14 Chloride IV 0055 Docusate Sodium 100 MG DAILY NEEDED PRN 01/11 2015 AC 01/11 PO 2137 Heparin Sodium 5,000 UNIT Q8 01/13 1400 DC 01/13 (Porcine) SC 01/14 0600 2213 Insulin Aspart 0 Q4 01/14 0005 AC 01/14 SC 0609 Insulin Aspart 0 TIDAC/HS 01/13 1200 DC 01/13 SC 01/14 0000 1806 Insulin Detemir 45 UNITS BID 01/12 0900 AC 01/14 SC 0823 Levothyroxine Sodium 0.1 MG DAILY AC 01/06 0700 AC 01/14 PO 0609 Lisinopril 5 MG DAILY 01/06 1000 AC 01/14 PO 0823 Oxycodone/ 2 TAB Q6P PRN 01/13 1000 AC 01/14 Acetaminophen PO 0609 Oxycodone/ 1 TAB Q6P PRN 01/07 0900 AC 01/13 Acetaminophen PO 2211 Pregabalin 150 MG BID 01/07 0900 AC 01/14 PO 0823 Senna 187 MG AT BEDTIME 01/11 2100 AC 01/13 PO 2212 Trazodone HCl 50 MG AT BEDTIME 01/07 2100 AC 01/13 PO 2211 Findings Pertinent Lab/Pelon Results: Laboratory Tests 01/14 0555 Hematology CBC w Diff NO MAN DIFF REQ WBC (4.8 - 10.8 /CUMM) 7.6 RBC (4.70 - 6.10 /CUMM) 3.66 L Hgb (14.0 - 18.0 G/DL) 11.2 L Hct (42 - 52 %) 32.6 L MCV (80.0 - 94.0 FL) 89.2 MCH (27.0 - 31.0 PG) 30.5 MCHC (33.0 - 37.0 G/DL) 34.3 RDW (11.5 - 14.5 %) 13.4 Plt Count (130 - 400 /CUMM) 247 MPV (7.4 - 10.4 FL) 9.1 Gran % (42.2 - 75.2 %) 60.7 Lymphocytes % (20.5 - 51.1 %) 26.4 Monocytes % (1.7 - 9.3 %) 7.8 Eosinophils % (0 - 5 %) 4.4 Basophils % (0.0 - 2.0 %) 0.7 Absolute Granulocytes (1.4 - 6.5 /CUMM) 4.6 Absolute Lymphocytes (1.2 - 3.4 /CUMM) 2.0 Absolute Monocytes (0.10 - 0.60 /CUMM) 0.6 Absolute Eosinophils (0.0 - 0.7 /CUMM) 0.3 Absolute Basophils (0.0 - 0.2 /CUMM) 0.1
--- NOTE | 2018-01-14 15:22 | Operative Report ---
Operative/Inv Procedure Report Surgery Date: 01/14/18 Name of Procedure: #1, incision and drainage of multiple bursae, right foot #2 delayed primary closure of complex surgical wound, right foot Pre-Operative Diagnosis: Infected puncture wound with associated abscess, right foot Post-Operative Diagnosis: Infected puncture wound with associated abscess, right foot Estimated Blood Loss: scant Surgeon/Loss Control Technician: Elver Magdaleno DPM Anesthesia: moderate sedation, 18 mL 2% lidocaine plain right ankle block Drains: None Specimens: None Microbiology: None Tourniquet: None Complications: None Condition: Stable Operative Indication: This is a 47-year-old uncontrolled diabetic male who is now had multiple washouts for an infected plantar puncture wound of the right foot with associated neuropathic ulceration and subcutaneous abscess onset 2 weeks prior to admission. The goal of this procedure is to perform what is hopefully his last surgical washout and close the majority of the wound as best could be well packing the remainder of it. Operative/Procedure Note Note: Upon prepping and draping the right foot in usual sterile manner, attention was directed to the second intermetatarsal space of the right foot, the patient's existing retention sutures were removed, and the intermetatarsal space was again bluntly explored looking for new purulence and devitalized tissue. A scant amount of fibrous tissue was found plantarly just distal to the initial puncture wound, but the remainder of the wound had viable tissue. A brief excisional debridement was performed on the surgical wound bed, and then the surgical wound was irrigated with a pulse lavage consisting of 3 L combination of normal saline and bacitracin solution. Surgical wound was then primarily closed from the dorsal proximal and through the webspace and up to the distal margin of the existing puncture wound and neuropathic ulceration using 3-0 nylon with a combination of interrupted horizontal mattress and simple sutures. The plantar wound was then packed with 1 inch plain packing, the suture line was dressed with Xeroform and the remainder of the foot wound was dressed with a dry sterile dressing consisting of multiple 4 x 4 gauzes, several EBD bandages, 1 roll of Kerlix and a sterile 4 inch Brian bandage. Discharge Disposition: PACU Additional Comments: The patient was escorted to the PACU by the surgical in anesthesiology teams in no apparent distress, afebrile, vital signs stable, neurovascular status intact, with good capillary refill time to the digits of the operative foot as well as the surrounding area of the suture line. The wound appears viable on inspection and the patient is stable for discharge provided his ID recommendations are finalized. He will require visiting nurse services at least twice a week for irrigation and packing of the wound while following up as an outpatient in the wound care center on Thursday weekly. I will follow up on this patient tomorrow morning to irrigate and pack the wound once again.
[2018-01-14 16:30] VITALS: BP 98/58
[2018-01-14 21:48] VITALS: BP 100/60
[2018-01-15 06:47] VITALS: BP 108/56
[2018-01-15 08:15] LABS: PT 13.5 SEC (9.4-12.5)
--- NOTE | 2018-01-15 09:10 | PN- Housestaff ---
Subjective Follow-up For: R foot wound staph aureus and gbs positive ?MRSA Bacteremia Subjective: No acute events overnight. Patient states he has no pain. Review of Systems Constitutional: Reports: see HPI. Objective Last 24 Hrs of Vital Signs/I&O Vital Signs Date Time Temp Pulse Resp B/P B/P Pulse O2 O2 Flow FiO2 Mean Ox Delivery Rate 01/15 1413 97.7 80 20 100/56 99 Room Air 01/15 0914 84 108/56 01/15 0647 97.9 84 18 108/56 95 01/14 2148 98.6 85 18 100/60 99 Room Air 01/14 1630 98.6 84 16 98/58 99 Room Air Intake & Output 01/15 1600 01/15 0800 01/15 0000 Intake Total 250 Output Total Balance 250 Intake, IV 250 Physical Exam General Appearance: Alert, Oriented X3, Cooperative Assessment/Plan Assessment: 47 yo m with a PMH significant for right foot osteomyelitis positive for MRSA, hypothyroidism, peripheral neuropathy, diabetic retinopathy s/p laser photocoagulation, IDDM, HTN, chronic back pain after an occupational injury presenting for right foot plantar ulcer with possible cellulitis vs abscess s/p debridement. Problems: R foot ulcer s/p injury with ?cellulitis/osteo Bacteremia - staph Plan: -PICC line placed -lab called today saying blood cultures are negative from MRSA. Finalize blood culture results tomorrow. Continue vancomycin and by mouth metronidazole however if MSSA discharge with unasyn -bone cx positive for GBS. tissue positive for staph and BS -obtain echo for endocarditis -blood sugars well controlled. will discharge with same regimen. -seen by vascular surgery, no f/u needed -changed pain meds to home reigmen of percs, lyrica, gabapentin and trazodone for sleep. pain well controlled with 2 percs prn severe pain -continue endocrinology recommendations for blood sugar control -We'll need to follow-up with podiatry at the clinic clinic every Thursday. We' ll get a visiting nurse for 2x weekly irrigation and packing -s/p I+D and washout with primary closure -hemoglobin A1c 10.3 -Lactic acid 2.7, 1.1 -CRP 2.0 -Foot x-ray shows shock tissue gas, foreign bodies. MRI negative for osteomyelitis, shows cellulitis -Venous Doppler negative, arterial Doppler reveals PVD -Consider vascular consult -cont home lisinopril for htn Diet: Diabetic Code: FULL DVT ppx: heparin subq Problem List: 1. Bacteremia 2. Wound, open, foot Pain Ratin Pain Location: r foot Pain Goal: Pain 4 or less Pain Plan: pathway Tomorrow's Labs & Rationales: cbc
--- NOTE | 2018-01-15 09:26 | PN- Diabetes ---
Assessment/Plan Diabetes Assessment: 47 y/o female who was diagnosed with diabetes in his 30s. In addition, he has had a hx of right foot osteomyelitis positive for MRSA, hypothyroidism, peripheral neuropathy, diabetic retinopathy s/p laser treatment. At home, he was on Levemir 60 units twice a day and Humalog 12 units before meals. He presented with right foot open wound. He underwent foot procedure twice. Currently he is on Levemir 45 units twice a day; Novolog coverage before meals was adjusted multiple times. In addition, he is on Novolog coverage at bedtime. His FSGs were 167, 136, 98, 259 and 132. Plan: continue the current insulin regimen for now; if he is medically stable for discharge, the discharge plan for DM: --- Levemir 45 units twice a day; ---Humalog coverage before meals according to the scale ( patient has Humalog at home)-- the same Novolog coverage before meals as inpatient. ---monitor FSGs x 4 times a day; ---f/u in office after discharge. Subjective Subjective: he feels better. Objective Last 24 Hrs of Vital Signs/I&O Vital Signs Date Time Temp Pulse Resp B/P B/P Pulse O2 O2 Flow FiO2 Mean Ox Delivery Rate 01/15 0914 84 108/56 01/15 0647 97.9 84 18 108/56 95 01/14 2148 98.6 85 18 100/60 99 Room Air 01/14 1630 98.6 84 16 98/58 99 Room Air Intake & Output 01/15 1600 01/15 0800 01/15 0000 Intake Total 250 Output Total Balance 250 Intake, IV 250 Findings Pertinent Lab/Pelon Results: Laboratory Tests 01/15 0618 Coagulation PT (9.4 - 12.5 SEC) 13.5 H INR (0.90 - 1.17) 1.24 H
[2018-01-15] MEDS ORDERED: HUMALOG KW100 UNIT/1 SC ×2 (09:33→09:37)
[2018-01-15] MEDS ORDERED: LEVEMIR100 UNIT/1 SC (09:33)
--- NOTE | 2018-01-15 10:25 | PN- Student ---
Subjective Subjective: Patient is feeling well. He has been sleeping good, having no pain and is eager to go home. Objective Objective: Vital Signs Date Time Temp Pulse Resp B/P B/P Pulse O2 O2 Flow FiO2 Mean Ox Delivery Rate 01/15 0914 84 108/56 01/15 0647 97.9 84 18 108/56 95 01/14 2148 98.6 85 18 100/60 99 Room Air 01/14 1630 98.6 84 16 98/58 99 Room Air ED Intake and Output 01/15 0000 01/14 1200 Intake Total 400 Output Total Balance 400 Intake, IV 400 Patient is cooperative and chatty. He is in no distress, alert and oriented x3. His blood sugar level was 132 at 8:52am. Results Results: Laboratory Tests 01/15/18 0618: PT 13.5 H, INR 1.24 H 01/14/18 0555: CBC w Diff NO MAN DIFF REQ, RBC 3.66 L, MCV 89.2, MCH 30.5, MCHC 34.3, RDW 13.4 , MPV 9.1, Gran % 60.7, Lymphocytes % 26.4, Monocytes % 7.8, Eosinophils % 4.4, Basophils % 0.7, Absolute Granulocytes 4.6, Absolute Lymphocytes 2.0, Absolute Monocytes 0.6, Absolute Eosinophils 0.3, Absolute Basophils 0.1 01/13/18 0645: Anion Gap 13, Estimated GFR > 60, BUN/Creatinine Ratio 18.6, CBC w Diff NO MAN DIFF REQ, RBC 3.66 L, MCV 89.7, MCH 30.5, MCHC 34.0, RDW 13.1, MPV 10.2, Gran % 73.0, Lymphocytes % 16.1 L, Monocytes % 7.8, Eosinophils % 2.6, Basophils % 0.5 , Absolute Granulocytes 6.4, Absolute Lymphocytes 1.4, Absolute Monocytes 0.7 H , Absolute Eosinophils 0.2, Absolute Basophils 0 Microbiology 01/13 0535 BLOOD: Blood Culture - RES 01/13 515 BLOOD: Blood Culture - RES 01/12 1721 EXTREMITIE: Gross Specimen Examination - RES BETA STREP GROUP B STAPH AUREUS 01/12 1721 EXTREMITIE: Gram Stain - RES 01/12 1714 EXTREMITIE: Gross Specimen Examination - RES BETA STREP GROUP B STAPH AUREUS 01/12 1714 EXTREMITIE: Gram Stain - RES Assessment/Plan Assessment: Mendoza Dent is a 47 y/o male with a past medical history significant for 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 He was admitted because of right plantar open wounds that were not healing. He was taken to OR for I/D on 01/06 and on 01/08 again for wound closure. Furthermore, Hand Stoner saw him on 01/12 to assess the status of the wound and 2 small foci of necrotic tissue with some purulence were found just deep to the ulceration in the plantar spaces medial and lateral to where purulence had been found distally in the wound. Samples of these tissues were obtained and the results showed growth of Beta Strep Group B. Samples of osseous tissue were also obtained and showed growth of Beta Strep Group B and S. aureus. Hand Stoner will perform [address] Proctor decided to leave him admitted one more day to wait for the blood culture results. 1. R foot ulcer - Follow up with storage consultant - Continue IV antibiotics - Manage pain 2. Diabetes - Monitor blood sugar levels - Follow up with endo - Mantain insulin regimen - Maintain diabetic diet
--- NOTE | 2018-01-15 11:16 | PN- Infect Dx ---
Subjective Subjective: Afebrile without complaints. He feels well with no pain in the right foot. Objective Last 24 Hrs of Vital Signs/I&O Vital Signs Date Time Temp Pulse Resp B/P B/P Pulse O2 O2 Flow FiO2 Mean Ox Delivery Rate 01/15 0914 84 108/56 01/15 0647 97.9 84 18 108/56 95 01/14 2148 98.6 85 18 100/60 99 Room Air 01/14 1630 98.6 84 16 98/58 99 Room Air Intake & Output 01/15 1600 01/15 0800 01/15 0000 Intake Total 250 Output Total Balance 250 Intake, IV 250 Physical Exam Other Physical Findings: He appears comfortable in no acute distress Extremities right foot dressing intact Results Last 24 Hours of Lab Results: Laboratory Tests 01/15 06 Coagulation PT (9.4 - 12.5 SEC) 13.5 H INR (0.90 - 1.17) 1.24 H Last 24 Hours of [place] Results: Blood cultures January 08 1 bottle positive for Staph aureus, now reidentified as probable MSSA OR cultures January 12 labeled right foot bone and deep soft tissue positive for Group B strep, probable MSSA and probable anaerobic gram negative rods Assessment/Plan ID Impression: Stable, with temperatures and last white blood cell count normal, now on Vancomycin and Flagyl for Staph aureus bacteremia and osteomyelitis of the right foot, status post repeat I&D of the right forefoot yesterday, now 9 days status post initial I&D of a puncture wound of the right foot. His positive blood culture from 1 week ago now again appears to be MSSA, as does the Staph aureus isolated from his recent OR cultures, which also grew Group B strep and probable gram-negative anaerobes, and, once these are finalized, his antibiotics may again need to be adjusted. Suggestion: 1. Would obtain a baseline postop ESR and x-ray of the right foot 2. Follow-up final OR and blood cultures 3. Proceed with placement of a PICC today 4. Continue Vancomycin and Flagyl but, if the Staph aureus is confirmed as MSSA , would change to Unasyn alone 3 g IV every 6 hours to plan on a 4 week course of antibiotics from his most recent debridement (until February 11) 5. Will need a weekly ESR while on antibiotics
--- NOTE | 2018-01-15 12:52 | PN- Att Addend ---
Attending Addendum Attending Brief Note Patient seen and examined, feels ok. Pain is better control. Blood sugars are acceptable. Vital Signs Date Time Temp Pulse Resp B/P B/P Pulse O2 O2 Flow FiO2 Mean Ox Delivery Rate 01/15 0914 84 108/56 01/15 0647 97.9 84 18 108/56 95 01/14 2148 98.6 85 18 100/60 99 Room Air 01/14 1630 98.6 84 16 98/58 99 Room Air on exam; aox3, nad. cv: s1,s2, rrr resp; clear abd; soft, nt, bs+ ext; no edema, right foot wrapped halima wrap. Laboratory Tests 01/15 618 Coagulation PT (9.4 - 12.5 SEC) 13.5 H INR (0.90 - 1.17) 1.24 H A/P; 47 y/o M with pmh sig for right foot osteomyelitis positive for MRSA, hypothyroidism, peripheral neuropathy, diabetic retinopathy s/p laser photocoagulation, IDDM, HTN, chronic back pain admitted with right foot plantar ulcer. Status post debridement and washout multiple times. Wound and blood culture growing staph and Alpha strept. Patient currently on Vanco and flagyl. Final abx will be as per ID. Will discuss further when cultures are finalized. Pt to get PICC line today. Levemir as per Endo. Blood sugars acceptable. pain mx adequate. Continue all other current meds. DVT px; Hep sq. Possible Discharge this weekend on IV abx.
[2018-01-15 13:07] LABS: ABSOLUTE BASOPHIL COUNT 0.1 /CUMM (0.0-0.2); ABSOLUTE EOSINOPHIL COUNT 0.3 /CUMM (0.0-0.7); ABSOLUTE LYMPH COUNT 2.1 /CUMM (1.2-3.4); ABSOLUTE MONOCYTE COUNT 0.6 /CUMM (0.10-0.60); BASOPHIL % 0.8 % (0.0-2.0); EOSINOPHIL % 3.8 % (0-5); GRANULOCYTE % 56.9 % (42.2-75.2); HEMATOCRIT 32.4 % (42-52); MEAN CORPUSCULAR HGB 30.3 PG (27.0-31.0); MEAN CORPUSCULAR HGB CONC 33.8 G/DL (33.0-37.0); MEAN CORPUSCULAR VOLUME 89.5 FL (80.0-94.0); MEAN PLATELET VOLUME 8.7 FL (7.4-10.4); PLATELET COUNT 261 /CUMM (130-400); RBC DISTRIBUTION WIDTH 13.2 % (11.5-14.5); RED BLOOD CELL CT 3.62 /CUMM (4.70-6.10); WHITE BLOOD CELL COUNT 6.9 /CUMM (4.8-10.8)
--- NOTE | 2018-01-15 13:53 | RADIOLOGY REPORT ---
EXAMINATION: XR PORTABLE CHEST CLINICAL INFORMATION: PICC placement. COMPARISON: CTA chest from 01/26/2017 TECHNIQUE: Portable frontal view of the chest was obtained. FINDINGS: The cardiomediastinal silhouette is within normal limits. There is a right-sided PICC with tip terminating in the distal superior vena cava near the cavoatrial junction. The lungs are clear. No consolidation, pulmonary edema, pleural effusion, pneumothorax. No acute osseous abnormality. IMPRESSION: Right-sided PICC terminating in the superior vena cava.
[2018-01-15] MEDS ORDERED: TRAZODONE HCL50 M1 PO (13:58)
[2018-01-15 14:13] VITALS: BP 100/56
[2018-01-15] MEDS ORDERED: UNASYN 3 GM VIAL3 GM IV (14:14)
[2018-01-15] MEDS ORDERED: FLAGYL500 MG PO (14:14)
[2018-01-15] MEDS ORDERED: VANCOMYCIN1.25 GM/21 IV (14:14)
--- NOTE | 2018-01-15 16:21 | PN- Podiatry ---
See Addendum Subjective Subjective: 47-year-old male seen and evaluated at bedside status post multiple incision and drainage and washout procedures of the right foot for an infected puncture wound. Patient is grown MSSA and group B strep from the foot wound, and also has MRSA and group A strep from a blood culture dated January 08. The patient is seen and evaluated bedside, reports drowsiness, but was otherwise sleeping peacefully in bed. He denies fever, chills, nausea, vomiting, diaphoresis, shortness of breath, and chest pain at the time upon examination Review of Systems: A 14 point review of systems was performed, and was found to be negative apart from the patient's complaints described above in the history of present illness. Objective Vital Signs and I&Os Vital Signs Date Time Temp Pulse Resp B/P B/P Pulse O2 O2 Flow FiO2 Mean Ox Delivery Rate 01/15 1413 97.7 80 20 100/56 99 Room Air 01/15 0914 84 108/56 01/15 0647 97.9 84 18 108/56 95 01/14 2148 98.6 85 18 100/60 99 Room Air 01/14 1630 98.6 84 16 98/58 99 Room Air Intake & Output 01/15 1600 01/15 0800 01/15 0000 01/14 1600 01/14 0800 01/14 0000 Intake Total 720 295 847 7064 Output Total Balance 720 303 780 9469 Intake, IV 250 400 150 Intake, Oral 720 960 Number 0 Bowel Movements Physical Exam: Neurovascular status and musculoskeletal exam are unchanged. The incision is clean dry and intact, the plantar open portion of the wound does not exhibit any drainage, there is no new onset devitalization of tissue, and in fact the margins of the initial wound had begun to epithelialize medially and laterally. The edema and erythema in the foot are resolving, there is no ecchymosis, there is no malodor, no purulent drainage, no fluctuance, no crepitus, no new bullous changes. Current Medications: Current Medications Sig/[place] Start time Last Medication Dose Route Stop Time Status Admin Acetaminophen 325 MG Q6P PRN 01/08 1800 AC 01/09 PO 2105 Atorvastatin Calcium 20 MG AT BEDTIME 01/06 2200 AC 01/14 PO 2218 Docusate Sodium 100 MG DAILY NEEDED PRN 01/11 2015 AC 01/11 PO 2137 Heparin Sodium 5,000 UNIT Q8 01/14 2200 AC 01/15 (Porcine) SC 1353 Insulin Aspart 0 TIDAC/HS 01/14 1700 AC 01/15 SC 1352 Insulin Detemir 45 UNITS BID 01/12 0900 AC 01/15 SC 0852 Levothyroxine Sodium 0.1 MG DAILY AC 01/06 0700 AC 01/15 PO 0503 Lisinopril 5 MG DAILY 01/06 1000 AC 01/15 PO 0914 Metronidazole 500 MG Q8H 01/14 1600 AC 01/15 PO 0720 Oxycodone/ 2 TAB Q6P PRN 01/13 1000 AC 01/15 Acetaminophen PO 0704 Oxycodone/ 1 TAB Q6P PRN 01/07 0900 AC 01/13 Acetaminophen PO 2211 Pregabalin 150 MG BID 01/07 0900 AC 01/15 PO 0915 Senna 187 MG AT BEDTIME 01/11 2100 AC 01/14 PO 2220 Trazodone HCl 50 MG AT BEDTIME 01/07 2100 AC 01/14 PO 2220 Vancomycin HCl 1,500 MG Q12H 01/15 0430 AC 01/15 Dextrose/Water 250 ML IV 0432 Vancomycin HCl 1,500 MG Q12H 01/14 1445 DC 01/14 Dextrose/Water 250 ML IV 1641 Results Last 48 Hours of Labs: Laboratory Tests 01/15 01/15 01/15 1245 1245 0618 Coagulation PT (9.4 - 12.5 SEC) 13.5 H INR (0.90 - 1.17) 1.24 H Hematology CBC w Diff NO MAN DIFF REQ WBC (4.8 - 10.8 /CUMM) 6.9 RBC (4.70 - 6.10 /CUMM) 3.62 L Hgb (14.0 - 18.0 G/DL) 11.0 L Hct (42 - 52 %) 32.4 L MCV (80.0 - 94.0 FL) 89.5 MCH (27.0 - 31.0 PG) 30.3 MCHC (33.0 - 37.0 G/DL) 33.8 RDW (11.5 - 14.5 %) 13.2 Plt Count (130 - 400 /CUMM) 261 MPV (7.4 - 10.4 FL) 8.7 Gran % (42.2 - 75.2 %) 56.9 Lymphocytes % (20.5 - 51.1 %) 29.8 Monocytes % (1.7 - 9.3 %) 8.7 Eosinophils % (0 - 5 %) 3.8 Basophils % (0.0 - 2.0 %) 0.8 Absolute Granulocytes (1.4 - 6.5 /CUMM) 4.0 Absolute Lymphocytes (1.2 - 3.4 /CUMM) 2.1 Absolute Monocytes (0.10 - 0.60 /CUMM) 0.6 Absolute Eosinophils (0.0 - 0.7 /CUMM) 0.3 Absolute Basophils (0.0 - 0.2 /CUMM) 0.1 ESR Westergren (0 - 10 MM) 112 H 01/14 0555 Hematology CBC w Diff NO MAN DIFF REQ WBC (4.8 - 10.8 /CUMM) 7.6 RBC (4.70 - 6.10 /CUMM) 3.66 L Hgb (14.0 - 18.0 G/DL) 11.2 L Hct (42 - 52 %) 32.6 L MCV (80.0 - 94.0 FL) 89.2 MCH (27.0 - 31.0 PG) 30.5 MCHC (33.0 - 37.0 G/DL) 34.3 RDW (11.5 - 14.5 %) 13.4 Plt Count (130 - 400 /CUMM) 247 MPV (7.4 - 10.4 FL) 9.1 Gran % (42.2 - 75.2 %) 60.7 Lymphocytes % (20.5 - 51.1 %) 26.4 Monocytes % (1.7 - 9.3 %) 7.8 Eosinophils % (0 - 5 %) 4.4 Basophils % (0.0 - 2.0 %) 0.7 Absolute Granulocytes (1.4 - 6.5 /CUMM) 4.6 Absolute Lymphocytes (1.2 - 3.4 /CUMM) 2.0 Absolute Monocytes (0.10 - 0.60 /CUMM) 0.6 Absolute Eosinophils (0.0 - 0.7 /CUMM) 0.3 Absolute Basophils (0.0 - 0.2 /CUMM) 0.1 Assessment/Plan Assessment/Plan 47-year-old male with MSSA and group B strep infection in a plantar puncture wound of the right foot status post multiple incision and drainage procedures, with MRSA and group A strep bacteremia, with positive bone biopsy of the third metatarsal. Patient was seen and evaluated at bedside. The wound was irrigated with 300 mL combination of normal saline and Betadine solution. The wound was then packed with sterile gauze, and a well-padded dry sterile dressing was applied plantarly with Xeroform and some dry sterile dressing over the dorsal sutures and the interspace. From a surgical standpoint, the patient is stabilized and clear for discharge provided he receives visiting nurses to irrigate and pack the wound twice a week while following up with me weekly for the same in the [facility] wound care center. Patient is to receive the PICC today per infectious disease. He will likely require a long-term IV course of directed therapy based on his pathogens. No change in the patient's weightbearing status for now, as he has tolerated partial weightbearing with a flat surgical shoe and a walker in the surgical dressing for the majority of this admission. If the patient is discharged, he is to follow up Thursday at our wound care center clinic here at the hospital. His final wound care recommendations are as follows: Irrigation with 200 mL of normal saline Packing with half-inch to 1 inch plain packing, whichever is available. Dry sterile dressing, with Vaseline gauze either Adaptic or Xeroform over the dorsal sutures and in the interspace. His final weightbearing status is: Partial weightbearing right foot, with flat surgical shoe and surgical dressing. Weightbearing as tolerated left foot, both with the assistance of a walker. His follow-up should be: [facility] conference of wound care center ThursdayJanuary 19, patient is to call and make an appointment. Core Measures Venous Thromboembolism VTE Risk Factors Age>40 No Mechanical VTE Prophylaxis d/t N/A MechProphylax Ordered No VTE Pharm Prophylaxis d/t Surgical Contraindication
--- NOTE | 2018-01-15 19:15 | ECHOCARDIOGRAM REPORT ---
DORA STUART Age: 47 : 1970 Gender: M Exam Date: 01/13/2018 15:54 Exam Location: [address] [place] [address] Ht (in): 71 Wt (lb): 238 BSA: 2.36 BP: 110 / 72 Ordering Physician: Sebastien Metzger MD Referring Physician: Sebastien Metzger MD Technologist: Miriam Trejo [facility] Room Number: 207 Indications: SHORTNESS OF BREATH Rhythm: Sinus Technical Quality: Poor FINDINGS Left Ventricle Normal size left ventricle. Normal left ventricular wall motion. No obvious regional wall motion abnormalities. Normal left ventricular ejection fraction visually estimated at 65%. Normal left ventricular diastolic filling pattern for age. Right Ventricle Normal right ventricular size and function. Right Atrium Normal right atrial size. Left Atrium Normal left atrial size. Mitral Valve Mild mitral annular calcification. Mitral valve thickened. Trace mitral regurgitation. Aortic Valve Structurally normal trileaflet aortic valve. No aortic valve stenosis or regurgitation. Tricuspid Valve Structurally normal tricuspid valve. Trace tricuspid regurgitation. No evidence of pulmonary hypertension. Right ventricular systolic pressure estimated to be within the normal range at 10 mmHg. Pulmonic Valve Pulmonic valve not well visualized, grossly normal. No pulmonic regurgitation. Pericardium No pericardial effusion. Great Vessels Normal size aortic root. CONCLUSIONS Normal size left ventricle. Normal left ventricular wall motion. No obvious regional wall motion abnormalities. Normal left ventricular ejection fraction visually estimated at 65%. Normal left ventricular diastolic filling pattern for age. Normal right ventricular size and function. Normal atrial size. Trace mitral regurgitation. Trace tricuspid regurgitation. No evidence of pulmonary hypertension. Rachid Madera M.D. (Electronically Signed) Final Date: 15 January 2018 19:14 MEASUREMENTS (Male / Female) Normal Values 2D ECHO LV Diastolic Diameter PLAX 3.7 cm 4.2 - 5.9 / 3.9 - 5.3 cm LV Systolic Diameter PLAX 2.3 cm 2.1 - 4.0 cm LV Fractional Shortening PLAX 37.8 % 25 - 46 % LV Ejection Fraction 2D Teich 68.8 % IVS Diastolic Thickness 0.9 cm LVPW Diastolic Thickness 1.1 cm LV Relative Wall Thickness 0.5 RV Internal Dim ED PLAX 1.8 cm 1.9 - 3.8 cm LVOT Diameter 2.0 cm Aortic Root Diameter 3.2 cm LA Systolic Diameter LX 2.9 cm 3.0 - 4.0 / 2.7 - 3.8 cm LA Volume 30.0 cm 18 - 58 / 22 - 52 cm Ascending Aorta Diameter 2.9 cm DOPPLER AV Peak Velocity 117.0 cm/s AV Peak Gradient 5.5 mmHg AV Mean Velocity 81.3 cm/s AV Mean Gradient 3.0 mmHg AV Velocity Time Integral 22.8 cm LVOT Peak Velocity 112.0 cm/s LVOT Peak Gradient 5.0 mmHg LVOT Mean Velocity 76.1 cm/s LVOT Mean Gradient 3.0 mmHg LVOT Velocity Time Integral 21.9 cm LVOT Stroke Volume 68.8 cm AV Area Cont Eq vti 3.0 cm AV Area Cont Eq pk 3.0 cm MV Peak Velocity 82.0 cm/s MV Peak Gradient 2.7 mmHg MV Mean Velocity 57.7 cm/s MV Mean Gradient 1.0 mmHg Mitral E Point Velocity 88.8 cm/s Mitral A Point Velocity 77.5 cm/s Mitral E to A Ratio 1.1 MV PHT Velocity 86.1 cm/s MV Deceleration [facility] 233.0 cm/s MV Pressure Half Time 110.9 ms MV Area PHT 2.0 cm MV Deceleration Time 248.0 ms TR Peak Velocity 111.0 cm/s TR Peak Gradient 4.9 mmHg Right Atrial Pressure 5.0 mmHg Pulmonary Artery Systolic Pressu 9.9 mmHg Right Ventricular Systolic Press 9.9 mmHg PV Peak Velocity 103.0 cm/s PV Peak Gradient 4.2 mmHg PV Mean Velocity 65.6 cm/s PV Mean Gradient 2.0 mmHg PV Velocity Time Integral 26.0 cm LV E' Lateral Velocity 12.9 cm/s Mitral E to LV E' Lateral Ratio 6.9 LV E' Septal Velocity 9.0 cm/s Mitral E to LV E' Septal Ratio 9.9
--- NOTE | 2018-01-15 19:41 | RADIOLOGY REPORT ---
EXAMINATION: RIGHT FOOT 3 VIEWS CLINICAL INFORMATION: Cellulitis status post debridement. Concern for osteomyelitis. COMPARISON: 01/05/2018. TECHNIQUE: AP, lateral, oblique views of the right foot were obtained. 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 This is not significantly changed from prior exam. There are scattered vascular calcifications. There are no acute fractures. There is no acute bony destruction. There is mild soft tissue swelling about the distal aspect of the foot. There are small calcaneal spurs. IMPRESSION: Stable chronic changes to the right foot without acute bony destruction. Soft tissue swelling as stated above.
[2018-01-15 21:16] VITALS: BP 110/64
[2018-01-16 06:00] VITALS: BP 106/62
[2018-01-16 08:17] VITALS: BP 102/62
[2018-01-16 08:22] LABS: ABSOLUTE BASOPHIL COUNT 0 /CUMM (0.0-0.2); ABSOLUTE EOSINOPHIL COUNT 0.2 /CUMM (0.0-0.7); ABSOLUTE GRANULOCYTE CT 3.2 /CUMM (1.4-6.5); ABSOLUTE MONOCYTE COUNT 0.5 /CUMM (0.10-0.60); BASOPHIL % 0.7 % (0.0-2.0); EOSINOPHIL % 3.9 % (0-5); GRANULOCYTE % 54.3 % (42.2-75.2); HEMATOCRIT 31.1 % (42-52); MEAN CORPUSCULAR HGB 30.6 PG (27.0-31.0); MEAN CORPUSCULAR HGB CONC 34.7 G/DL (33.0-37.0); MEAN CORPUSCULAR VOLUME 88.4 FL (80.0-94.0); MEAN PLATELET VOLUME 9.2 FL (7.4-10.4); PLATELET COUNT 235 /CUMM (130-400); RBC DISTRIBUTION WIDTH 12.9 % (11.5-14.5); RED BLOOD CELL CT 3.52 /CUMM (4.70-6.10); WHITE BLOOD CELL COUNT 5.9 /CUMM (4.8-10.8)
--- NOTE | 2018-01-16 08:56 | PN- Housestaff ---
Josias Draper MD,[facility] 01/16/18 0856: Subjective Follow-up For: R foot wound staph aureus and gbs positive Strep Bacteremia Subjective: Patient visited today, was lying in bed comfortably in no acute distress, was alert and oriented. No fever or chills, no shortness of breathing, no chest pain, no other events. s/p I and D 2 days ago PICC line placed stable to be discharge on unasyn today, pending approval from insurance will follow IOP Review of Systems Constitutional: Reports: see HPI. Objective Last 24 Hrs of Vital Signs/I&O Vital Signs Date Time Temp Pulse Resp B/P B/P Pulse O2 O2 Flow FiO2 Mean Ox Delivery Rate 01/16 0817 102/62 01/16 0600 98.0 74 22 106/62 96 Room Air 01/15 2116 96.2 80 20 110/64 98 01/15 1413 97.7 80 20 100/56 99 Room Air Intake & Output 01/16 1600 01/16 0800 01/16 0000 Intake Total 320 350 Output Total Balance 320 350 Intake, IV 270 350 Intake, Oral 50 Physical Exam General Appearance: Alert, Oriented X3, Cooperative, No Acute Distress Skin: Foot s/p I and D, dressing in place Skin Temp/Moisture Exam: Warm/Dry Sepsis Skin Exam (color): Normal for Ethnicity HEENT: Atraumatic, EOMI Cardiovascular: Normal S1, Normal S2 Lungs: Clear to Auscultation, Normal Air Movement Abdomen: Soft, No Tenderness Neurological: Normal Speech Extremities: PICC line in place Current Medications: Current Medications Sig/Quincy Start time Last Medication Dose Route Stop Time Status Admin Acetaminophen 325 MG Q6P PRN 01/08 1800 AC 01/09 PO 2106 Ampicillin Sodium/ 3,000 MG Q6 01/16 1115 AC 01/16 Sulbactam Sodium IV 1324 Sodium Chloride 100 ML Atorvastatin Calcium 20 MG AT BEDTIME 01/06 2200 AC 01/15 PO 221 Docusate Sodium 100 MG DAILY NEEDED PRN 01/11 2015 AC 01/11 PO 213 Heparin Sodium 5,000 UNIT Q8 01/14 2200 AC 01/16 (Porcine) SC 1324 Insulin Aspart 0 TIDAC/HS 01/14 1700 AC 01/16 SC 1323 Insulin Detemir 45 UNITS BID 01/12 0900 AC 01/16 SC 0818 Levothyroxine Sodium 0.1 MG DAILY AC 01/06 0700 AC 01/16 PO 0509 Lisinopril 5 MG DAILY 01/06 1000 AC 01/16 PO 0817 Metronidazole 500 MG Q8H 01/14 1600 DC 01/16 PO 0817 Oxycodone/ 2 TAB Q6P PRN 01/13 1000 AC 01/16 Acetaminophen PO 1324 Oxycodone/ 1 TAB Q6P PRN 01/07 0900 AC 01/13 Acetaminophen PO 2211 Pregabalin 150 MG BID 01/07 0900 AC 01/16 PO 0818 Senna 187 MG AT BEDTIME 01/11 2100 AC 01/15 PO 221 Trazodone HCl 50 MG AT BEDTIME 01/07 2100 AC 01/15 PO 221 Vancomycin HCl 1,500 MG Q12H 01/15 0430 DC 01/16 Dextrose/Water 250 ML IV 0442 Last 24 Hrs of Lab/Pelon Results Last 24 Hrs of Labs/Mics: Laboratory Tests 01/16/18 0640: CBC w Diff NO MAN DIFF REQ, RBC 3.52 L, MCV 88.4, MCH 30.6, MCHC 34.7, RDW 12.9 , MPV 9.2, Gran % 54.3, Lymphocytes % 33.1, Monocytes % 8.0, Eosinophils % 3.9, Basophils % 0.7, Absolute Granulocytes 3.2, Absolute Lymphocytes 2.0, Absolute Monocytes 0.5, Absolute Eosinophils 0.2, Absolute Basophils 0 Assessment/Plan Assessment: 47 yo m with a PMH significant for right foot osteomyelitis positive for MRSA, hypothyroidism, peripheral neuropathy, diabetic retinopathy s/p laser photocoagulation, IDDM, HTN, chronic back pain after an occupational injury presenting for right foot plantar ulcer with possible cellulitis vs abscess s/p debridement. Problems: R foot ulcer s/p injury with ?cellulitis/osteo Bacteremia - staph and strep Plan: -PICC line placed -micro: MSSA discharge with unasyn -bone cx positive for GBS. tissue positive for staph and BS -obtain echo for endocarditis was negative -blood sugars well controlled. will discharge with same regimen. -seen by vascular surgery, no f/u needed -changed pain meds to home reigmen of percs, lyrica, gabapentin and trazodone for sleep. pain well controlled with 2 percs prn severe pain -continue endocrinology recommendations for blood sugar control -We'll need to follow-up with podiatry at the clinic clinic every Thursday. We' ll get a visiting nurse for 2x weekly irrigation and packing -s/p I+D and washout with primary closure -hemoglobin A1c 10.3 -Lactic acid 2.7, 1.1 -CRP 2.0 -Foot x-ray shows shock tissue gas, foreign bodies. MRI negative for osteomyelitis, shows cellulitis -Venous Doppler negative, arterial Doppler reveals PVD -Consider vascular consult -cont home lisinopril for htn - PICC line placed yesterday - Patient stable to be discharged on Unasyn Diet: Diabetic Code: FULL DVT ppx: heparin subq Problem List: 1. Wound, open, foot 2. Bacteremia Pain Ratin Pain Location: none Pain Goal: Pain 4 or less Pain Plan: Continue current plan Tomorrow's Labs & Rationales: MELINDA Calderon MD,[facility] 01/16/18 1620: Attending MD Review Statement Attending Statement Attending MD Statement: examined this patient, discuss w/resident/PA/[employer]IC, agreed w/resident/PA/[employer] MECHANIC, reviewed EMR data (avail), discussed with nursing, discussed with case mgmt, amended to note Attending Assessment/Plan: Patient seen and examined, overall doing well. Pain is well controlled. Patient seen by podiatry. Cultures growing MSSA. Discussed with infectious disease, patient will be continued on Unasyn. Patient had a PICC line placed yesterday. Arrangements have been made for his home IV antibiotics. His blood sugars are stable and I discussed this with Dr. David. Patient will be kept on the current regimen of Levemir which is 45 units twice a day as well as sliding scale insulin as recommended by endocrinology. Otherwise she is medically stable for discharge home today with IV antibiotics and home services.
[2018-01-16] MEDS ORDERED: UNASYN 3 GM VIAL3 GM IV (10:52)
--- NOTE | 2018-01-16 11:50 | PN- Podiatry ---
Subjective Subjective: 47-year-old male seen and evaluated at bedside status post multiple incision and drainage and washout procedures of the right foot for an infected puncture wound. Patient is grown MSSA and group B strep from the foot wound, and also has staph aureus and group A strep from a blood culture dated January 08. The patient is seen and evaluated bedside, reports drowsiness, but was otherwise sleeping peacefully in bed. He denies fever, chills, nausea, vomiting, diaphoresis, shortness of breath, and chest pain at the time upon examination Review of Systems: A 14 point review of systems was performed, and was found to be negative apart from the patient's complaints described above in the history of present illness. Objective Vital Signs and I&Os Vital Signs Date Time Temp Pulse Resp B/P B/P Pulse O2 O2 Flow FiO2 Mean Ox Delivery Rate 01/16 0817 102/62 01/16 0600 98.0 74 22 106/62 96 Room Air 01/15 2116 96.2 80 20 110/64 98 01/15 1413 97.7 80 20 100/56 99 Room Air Intake & Output 01/16 1600 01/16 0800 01/16 0000 01/15 1600 01/15 0800 01/15 0000 Intake Total 320 350 720 250 Output Total Balance 320 350 720 250 Intake, IV 270 350 250 Intake, Oral 50 720 Physical Exam: Neurovascular status and musculoskeletal exam are unchanged. The incision is clean dry and intact, the plantar open portion of the wound does not exhibit any drainage, there is no new onset devitalization of tissue, and in fact the margins of the initial wound had begun to epithelialize medially and laterally. The edema and erythema in the foot are resolving, there is no ecchymosis, there is no malodor, no purulent drainage, no fluctuance, no crepitus, no new bullous changes. Current Medications: Current Medications Sig/[place] Start time Last Medication Dose Route Stop Time Status Admin Acetaminophen 325 MG Q6P PRN 01/08 1800 AC 01/09 PO 210 Ampicillin Sodium/ 3,000 MG Q6 01/16 1115 AC Sulbactam Sodium IV Sodium Chloride 100 ML Atorvastatin Calcium 20 MG AT BEDTIME 01/06 2200 AC 01/15 PO 2217 Docusate Sodium 100 MG DAILY NEEDED PRN 01/11 2015 AC 01/11 PO 2137 Heparin Sodium 5,000 UNIT Q8 01/14 2200 AC 01/16 (Porcine) SC 0451 Insulin Aspart 0 TIDAC/HS 01/14 1700 AC 01/16 SC 0818 Insulin Detemir 45 UNITS BID 01/12 0900 AC 01/16 SC 0818 Levothyroxine Sodium 0.1 MG DAILY AC 01/06 0700 AC 01/16 PO 0509 Lisinopril 5 MG DAILY 01/06 1000 AC 01/16 PO 0817 Metronidazole 500 MG Q8H 01/14 1600 DC 01/16 PO 0817 Oxycodone/ 2 TAB Q6P PRN 01/13 1000 AC 01/16 Acetaminophen PO 0633 Oxycodone/ 1 TAB Q6P PRN 01/07 0900 AC 01/13 Acetaminophen PO 2211 Pregabalin 150 MG BID 01/07 0900 AC 01/16 PO 0818 Senna 187 MG AT BEDTIME 01/11 2100 AC 01/15 PO 2217 Trazodone HCl 50 MG AT BEDTIME 01/07 2100 AC 01/15 PO 2218 Vancomycin HCl 1,500 MG Q12H 01/15 0430 DC 01/16 Dextrose/Water 250 ML IV 0442 Results Last 48 Hours of Labs: Laboratory Tests 01/16 01/15 0640 1245 Hematology CBC w Diff NO MAN DIFF REQ WBC (4.8 - 10.8 /CUMM) 5.9 RBC (4.70 - 6.10 /CUMM) 3.52 L Hgb (14.0 - 18.0 G/DL) 10.8 L Hct (42 - 52 %) 31.1 L MCV (80.0 - 94.0 FL) 88.4 MCH (27.0 - 31.0 PG) 30.6 MCHC (33.0 - 37.0 G/DL) 34.7 RDW (11.5 - 14.5 %) 12.9 Plt Count (130 - 400 /CUMM) 235 MPV (7.4 - 10.4 FL) 9.2 Gran % (42.2 - 75.2 %) 54.3 Lymphocytes % (20.5 - 51.1 %) 33.1 Monocytes % (1.7 - 9.3 %) 8.0 Eosinophils % (0 - 5 %) 3.9 Basophils % (0.0 - 2.0 %) 0.7 Absolute Granulocytes (1.4 - 6.5 /CUMM) 3.2 Absolute Lymphocytes (1.2 - 3.4 /CUMM) 2.0 Absolute Monocytes (0.10 - 0.60 /CUMM) 0.5 Absolute Eosinophils (0.0 - 0.7 /CUMM) 0.2 Absolute Basophils (0.0 - 0.2 /CUMM) 0 ESR Westergren (0 - 10 MM) 112 H 01/15 01/15 1245 0618 Coagulation PT (9.4 - 12.5 SEC) 13.5 H INR (0.90 - 1.17) 1.24 H Hematology CBC w Diff NO MAN DIFF REQ WBC (4.8 - 10.8 /CUMM) 6.9 RBC (4.70 - 6.10 /CUMM) 3.62 L Hgb (14.0 - 18.0 G/DL) 11.0 L Hct (42 - 52 %) 32.4 L MCV (80.0 - 94.0 FL) 89.5 MCH (27.0 - 31.0 PG) 30.3 MCHC (33.0 - 37.0 G/DL) 33.8 RDW (11.5 - 14.5 %) 13.2 Plt Count (130 - 400 /CUMM) 261 MPV (7.4 - 10.4 FL) 8.7 Gran % (42.2 - 75.2 %) 56.9 Lymphocytes % (20.5 - 51.1 %) 29.8 Monocytes % (1.7 - 9.3 %) 8.7 Eosinophils % (0 - 5 %) 3.8 Basophils % (0.0 - 2.0 %) 0.8 Absolute Granulocytes (1.4 - 6.5 /CUMM) 4.0 Absolute Lymphocytes (1.2 - 3.4 /CUMM) 2.1 Absolute Monocytes (0.10 - 0.60 /CUMM) 0.6 Absolute Eosinophils (0.0 - 0.7 /CUMM) 0.3 Absolute Basophils (0.0 - 0.2 /CUMM) 0.1 Assessment/Plan Assessment/Plan 47-year-old male with MSSA and group B strep infection in a plantar puncture wound of the right foot status post multiple incision and drainage procedures, with S. aureus and group A strep bacteremia, with positive bone biopsy of the third metatarsal. Patient was seen and evaluated at bedside. The wound was irrigated with 500 mL combination of normal saline and Betadine solution, and a well-padded dry sterile dressing was applied plantarly with Xeroform and some dry sterile dressing over the dorsal sutures and the interspace. We will trial cessation of packing in the absence of drainage, leukocytosis and abnormal vital signs for several days. From a surgical standpoint, the patient is stabilized and clear for discharge provided he receives visiting nurses to irrigate and dress the wound twice a week while following up with me weekly for the same in the [facility] wound care center. Patient is s/p PICC for long-term IV course of directed therapy based on his pathogens. No change in the patient's weightbearing status for now, as he has tolerated partial weightbearing with a flat surgical shoe and a walker in the surgical dressing for the majority of this admission. If the patient is discharged, he is to follow up Thursday at our wound care center clinic here at the hospital. His final wound care recommendations are as follows: Irrigation with 200 mL of normal saline Dry sterile dressing, with Vaseline gauze either Adaptic or Xeroform over the dorsal sutures and in the interspace. His final weightbearing status is: Partial weightbearing right foot, with flat surgical shoe and surgical dressing. Weightbearing as tolerated left foot, both with the assistance of a walker. His follow-up should be: [facility] conference of wound care center ThursdayJanuary 19, patient is to call and make an appointment. Core Measures Venous Thromboembolism VTE Risk Factors Age>40 No Mechanical VTE Prophylaxis d/t N/A MechProphylax Ordered No VTE Pharm Prophylaxis d/t Surgical Contraindication
--- NOTE | 2018-01-18 23:13 | Discharge Summary ---
Visit Information Visit Dates Admission Date: 01/05/18 Discharge Date: 01/16/18 Hospital Course Course Attending Physician: Judith Calderon MD Primary Care Physician: Ishmael Moore MD Hospital Course: A: 47 yo m with a PMH significant for right foot osteomyelitis positive for MRSA, hypothyroidism, peripheral neuropathy, diabetic retinopathy s/p laser photocoagulation, IDDM, HTN, chronic back pain after an occupational injury presenting for infected right foot plantar ulcer with bacteremia Problems: #Bacteremia secondary to infected R foot ulcer The patient presented with an infected R foot wound which he was then found to subsequently have MSSA bactereremia. Foot x-ray showed soft tissue gas and foreign bodies. MRI was negative for osteomyelitis, and had findings consistent with cellulitis. The patient was initially watched off abx but was then started on bactrim for as he spiked fevers. As he continued to spike fevers, bactrim was swtiched to vancomycin given his MRSA history. His tissue cultures grew MSSA and beta strep group G and ID recommended switching to cefazolin. Blood cultures were initially MRSA positive and the patient was then switched back to vancomycin and po flagyl. However this was false as there was alpha strep contaminant in the blood cultures. Final blood cultures grew MSSA. The patient was taken to the OR by podiatry 4x for I+D, washout and closure. Venous Doppler was negative and arterial Doppler revealed PVD. He was seen by vascular surgery for PVD who stated no follow up was needed. Echocardiogram was negative for any vegetations. Crp was 2.0. Baseline post-op ESR is 112. He was discharged with a PICC line with Unasyn until February 11 as final blood cultures grew MSSA. He was instructed to get weekly ESR while on antibiotics. He was instructed to follow up with podiatry every thursday at the [facility] Wound care clinic. As instructed by podiatry: His final wound care recommendations are as follows: Irrigation with 200 mL of normal saline Dry sterile dressing, with Vaseline gauze either Adaptic or Xeroform over the dorsal sutures and in the interspace. His final weightbearing status is: Partial weightbearing right foot, with flat surgical shoe and surgical dressing. Weightbearing as tolerated left foot, both with the assistance of a walker. #Diabetes Hemoglobin A1c was 10.3. He was discharged with levemir and a humalog sliding scale which controlled his blood sugars well during admission. He was adivsed to follow up with Dr. Griffith (endocrinology) onThursdayFebruary 01 1:30PM. #Chronic medical conditions: HLD, hypothyrodism, HTN, insomnia Continued lisinopril, synthroid, atorvastatin, trazodone Allergies: Coded Allergies: No Known Allergies (12/16/16) Disposition Summary Disposition Principal Diagnosis: Infected Right foot wound with MSSA and GBS Additional Diagnosis: MSSA bacteremia Diabetes Discharge Disposition: home health services Discharge Instructions General Discharge Information Code Status: Full Code Patient's Diet: Diabetic Patient's Activity: Partial weightbearing right foot, with flat surgical shoe and surgical dressing. Weightbearing as tolerated left foot, both with the assistance of a walker. Follow-Up Instructions/Appts: Please follow up with your pcp. Please follow up at the wound care center Friday January 12, 2018 @ 1130am. [phone] follow up with Dr. Griffith (endocrinology). ThursdayFebruary 01 1:30PM Please take your medications as perscribed. Please get a weekly ESR while on antibitoics. Here is your instructions for wound care: - wound care recommendations are as follows: Irrigation with 200 mL of normal saline Packing with half-inch to 1 inch plain packing, whichever is available. Dry sterile dressing, with Vaseline gauze either Adaptic or Xeroform over the dorsal sutures and in the interspace. - weightbearing status is: Partial weightbearing right foot, with flat surgical shoe and surgical dressing. Weightbearing as tolerated left foot, both with the assistance of a walker. - follow-up should be: [facility] conference of wound care center ThursdayJanuary 19, patient is to call and make an appointment. Medications at Discharge Discharge Medications: Stop taking the following medications: Oxycodone HCl (Oxycodone HCl) 5 MG CAPSULE ORAL EVERY SIX HOURS NEEDED Qty = 10 Vancomycin/0.9 % Sod Chloride (Vanco 1.5 Gm/250 Ml-0.9% NaCl) 1.5 GRAM/250 ML PLAST..BAG INTRAVEN EVERY 12 HOURS Qty = 54 Insulin Detemir (Levemir) 100 UNIT/ML VIAL Inject into fatty tissue TWICE DAILY Qty = 1 Metformin HCl (Metformin HCl) 500 MG TABLET ORAL TWICE DAILY Qty = 60 Oxycodone HCl/Acetaminophen (Percocet 5-325 MG Tablet) 5 MG-325 MG TABLET ORAL THREE TIMES DAILY as needed for pain Qty = 12 Oxycodone HCl/Acetaminophen (Percocet 5-325 MG Tablet) 5 MG-325 MG TABLET ORAL 4 times daily as needed as needed for PAIN Qty = 6 Continue taking these medications: Pregabalin (Lyrica) 150 MG CAPSULE 1 Capsule ORAL TWICE DAILY Qty = 60 Comments: Last Taken: 01/16/18 Time: 0820 AM Lisinopril (Prinivil) 5 MG TABLET 1 Tablet ORAL DAILY Comments: Last Taken: 01/16/18 Time: 0820 AM Levothyroxine Sodium (Synthroid) 100 MCG TABLET 1 Tablet ORAL DAILY Comments: Last Taken: 01/16/18 Time: 0500 AM Atorvastatin Calcium (Atorvastatin Calcium) 20 MG TABLET 1 Tablet ORAL AT BEDTIME Qty = 30 Comments: Last Taken: 01/15/18 Time: 10:30 PM Oxycodone HCl/Acetaminophen (Percocet 5-325 MG Tablet) 5 MG-325 MG TABLET 1-2 Tablet ORAL EVERY SIX HOURS NEEDED as needed for PAIN Qty = 20 Comments: Last Taken: 01/16/18 Time: 0630 AM Trazodone HCl (Trazodone HCl) 50 MG TABLET 1 Tablet ORAL Every night Qty = 30 Comments: Last Taken: 01/15/18 Time: 10:20 PM Start taking the following new medications: Ampicillin Sodium/Sulbactam Na (Unasyn 3 Gm Vial) 3 GRAM VIAL 1 VIAL INTRAVEN EVERY SIX HOURS Qty = 108 No Refills Instructions: PLEASE CONTINUE UNASYN EVERY 6 HRS. LAST DAY FEBRUARY 11. Comments: Last Taken: 01/16/18 Time: 1230 PM Insulin Detemir (Levemir) 100 UNIT/ML VIAL 45 Units Inject into fatty tissue TWICE DAILY Qty = 20 No Refills Comments: Last Taken: 01/16/18 Time: 0820 AM The following medications have been changed: Old: Insulin Lispro (Humalog Kwikpen U-100) 100 UNIT/ML INSULN.PEN 0 Inject into fatty tissue THREE TIMES DAILY Qty = 15 New: Insulin Lispro (Humalog Kwikpen U-100) 100 UNIT/ML INSULN.PEN 0 Inject into fatty tissue THREE TIMES DAILY Qty = 15 Instructions: BEFORE MEALS Blood Insulin Sugar Units <80 0 81-150 10 151-200 13 201-250 16 251-300 18 301-350 20 351-400 22 >400 24 & Call Doctor AT BEDTIME Blood Insulin Sugar Units <80 0 81-100 0 101-200 0 201-250 0 251-300 4 301-350 6 351-400 8 >400 10, CALL MD Comments: INSULIN NOVOLOG GIVEN Last Taken: 01/16/18 Time: 0820 AM Copies To: Teresa COLLAZO,Ishmael Simons
== END 2018-01-16 15:20 | disposition home health service (06) | DRG 622 ==
LOC: ERH 14:10 → ERHI 21:13 → 2NB 21:13 → EDBEDREQ 01-06 16:34 → ENRESERV 01-06 17:10 → ENTRNSPT 01-06 17:28 → EDTRNSPT 01-06 17:47 → 2NB 01-06 17:48 → CMPTRNSPT 01-06 18:21 → 2NB 01-07 09:14 → ENTRNSPT 01-08 10:47 → EDTRNSPT 01-08 10:51 → EDTRNSPTSTS 01-08 10:51 → EDTRNSPT 01-08 10:58 → CMPTRNSPT 01-08 11:34 → 2NB 01-11 11:54 → ENTRNSPT 01-12 18:58 → EDTRNSPT 01-12 19:06 → EDTRNSPTSTS 01-12 19:06 → CMPTRNSPT 01-12 19:25 → ENTRNSPT 01-14 15:55 → EDTRNSPT 01-14 16:00 → EDTRNSPTSTS 01-14 16:00 → CMPTRNSPT 01-14 16:27 → ENPENDDIS 01-16 11:28 → ENTRNSPT 01-16 14:56 → EDTRNSPTSTS 01-16 15:18 → 2NB 01-16 15:20 → CMPTRNSPT 01-16 15:24
PROVIDERS: Physician Assistant Medical
PROC: 0HBMXZZ Excision of Right Foot Skin, External Approach (ICD-10-PCS; 2018-01-05)
PROC: 0J9Q0ZZ Drainage of Right Foot Subcutaneous Tissue and Fascia, Open Approach (ICD-10-PCS; principal; 2018-01-06)
PROC: 0JBQ0ZZ Excision of Right Foot Subcutaneous Tissue and Fascia, Open Approach (ICD-10-PCS; principal; 2018-01-06)
PROC: 0JBQ0ZZ Excision of Right Foot Subcutaneous Tissue and Fascia, Open Approach (ICD-10-PCS; 2018-01-08)
PROC: 0QBN0ZZ Excision of Right Metatarsal, Open Approach (ICD-10-PCS; 2018-01-12)
PROC: 0JBQ0ZZ Excision of Right Foot Subcutaneous Tissue and Fascia, Open Approach (ICD-10-PCS; 2018-01-14)
PROC: 02HV33Z Insertion of Infusion Device into Superior Vena Cava, Percutaneous Approach (ICD-10-PCS; 2018-01-15)
DX: E11.621 Type 2 diabetes mellitus with foot ulcer (principal); A41.01 Sepsis due to Methicillin susceptible Staphylococcus aureus; M86.9 Osteomyelitis, unspecified; E11.42 Type 2 diabetes mellitus with diabetic polyneuropathy; E87.2 Acidosis; L02.611 Cutaneous abscess of right foot; E11.319 Type 2 diabetes mellitus with unspecified diabetic retinopathy without macular edema; E11.65 Type 2 diabetes mellitus with hyperglycemia; E11.69 Type 2 diabetes mellitus with other specified complication; L97.514 Non-pressure chronic ulcer of other part of right foot with necrosis of bone; E03.9 Hypothyroidism, unspecified; B95.1 Streptococcus, group B, as the cause of diseases classified elsewhere; G89.29 Other chronic pain; M54.9 Dorsalgia, unspecified; Z89.421 Acquired absence of other right toe(s); Z87.891 Personal history of nicotine dependence; Z79.4 Long term (current) use of insulin
CPT/HCPCS: 2NBP; 75659; 87070; 87075; 87184; ERO; 36415; 36592; 71045; 73630-RT; 81003; 82436; 87040; 87071; 87086; 87147; 93005; 93010; 93306; 96374; 96375; A9579; C1769; J0131; J0690; J1644; J1815; J2001; J3010; J3370; J7042; J7060

== ENCOUNTER 2018-04-22 15:54 | Inpatient (IN) | payer MEDICARE, OTHER ==
[~2018-04-22] VITALS: Ht 180.3 cm; Wt 108.9 kg
[~2018-04-22 15:54] MED LIST changes: +FLAGYL500 MG PO; +SULFAMETHOXAZO1 EAC1 PO; +TRAZODONE HCL50 M1 PO; +UNASYN 3 GM VIAL3 GM IV; +VANCOMYCIN1.25 GM/21 IV
[2018-04-22 16:49] LABS: ABSOLUTE BASOPHIL COUNT 0 /CUMM (0.0-0.2); ABSOLUTE EOSINOPHIL COUNT 0 /CUMM (0.0-0.7); ABSOLUTE LYMPH COUNT 1.3 /CUMM (1.2-3.4); ABSOLUTE MONOCYTE COUNT 0.6 /CUMM (0.10-0.60); BASOPHIL % 0.2 % (0.0-2.0); EOSINOPHIL % 0.2 % (0-5); HEMATOCRIT 39.2 % (42-52); MEAN CORPUSCULAR HGB 29.8 PG (27.0-31.0); MEAN CORPUSCULAR HGB CONC 34.2 G/DL (33.0-37.0); MEAN CORPUSCULAR VOLUME 87.3 FL (80.0-94.0); MEAN PLATELET VOLUME 11.2 FL (7.4-10.4); PLATELET COUNT 136 /CUMM (130-400); RBC DISTRIBUTION WIDTH 14.1 % (11.5-14.5); RED BLOOD CELL CT 4.49 /CUMM (4.70-6.10); WHITE BLOOD CELL COUNT 10.9 /CUMM (4.8-10.8)
[2018-04-22 16:55] LABS: GRANULOCYTE % 82.4 % (42.2-75.2)
--- NOTE | 2018-04-22 17:33 | RADIOLOGY REPORT ---
EXAMINATION: XR FOOT, RIGHT CLINICAL INFORMATION: Wound infection. Osteomyelitis. COMPARISON: Right foot 01/15/2018. TECHNIQUE: AP, lateral, and oblique views of the right foot. FINDINGS: There has been progressive abnormal changes of the third toe since the prior exam of 01/15/2018 at the metatarsal phalangeal joint. This joint was dislocated on the prior exam. It remains dislocated on this study. There is now bone loss of both the third metatarsal head and of the third proximal phalanges at the joint consistent with an osteomyelitis. In addition there is a nonunited fracture of the distal shaft of the third metatarsal at the neck of the metatarsal. There is periosteal reaction around the distal metatarsal shaft. Changes consistent with osteomyelitis. There is radiolucency in the soft tissues around this area which may be due to air or edema. Patient has had a prior resection of the fourth and fifth toes at the proximal metatarsals which is stable. The first and second toe of the foot have no acute changes. There is a small plantar calcaneal spur. IMPRESSION: Changes of osteomyelitis of the third toe at the metatarsophalangeal joint involving both the distal third metatarsal and the proximal phalange of the third toe.
[2018-04-22] MEDS ORDERED: LEVEMIR100 UNIT/1 SC (19:35)
[2018-04-22] MEDS ORDERED: HUMALOG100 UNIT/2 SC (19:35)
[2018-04-22] MEDS ORDERED: LIPITOR10 M1 PO (19:36)
[2018-04-22] MEDS ORDERED: JARDIANCE25 M1 PO (19:37)
--- NOTE | 2018-04-22 20:03 | ED ANKLE/FOOT INJURY COMPLAINT ---
History of Present Illness General Chief Complaint: Skin Rash/ Abcess Stated Complaint: R LEG INSTEP WOUND Source: patient Exam Limitations: no limitations Vital Signs & Intake/Output Vital Signs & Intake/Output Vital Signs Date Time Temp Pulse Resp B/P B/P Pulse O2 O2 Flow FiO2 Mean Ox Delivery Rate 04/22 1932 98.0 84 16 119/73 100 Room Air 04/22 1610 98.4 76 18 126/88 98 Room Air Allergies Coded Allergies: No Known Allergies (12/16/16) Reconcile Medications Atorvastatin Calcium (Lipitor) 10 MG TABLET 1 TAB PO DAILY CHOLESTEROL ( Reported) Empagliflozin (Jardiance) 25 MG TABLET 1 TAB PO DAILY DM (Reported) Insulin Detemir (Levemir) 100 UNIT/ML VIAL 60 UNITS SC BID DM (Reported) Insulin Lispro (Humalog) 100 UNIT/ML VIAL 12 UNITS SC TIDAC DM (Reported) Levothyroxine Sodium (Synthroid) 100 MCG TABLET 1 TAB PO DAILY HYPOTHYROIDISM (Reported) Lisinopril (Prinivil) 5 MG TABLET 1 TAB PO DAILY HTN (Reported) Oxycodone HCl/Acetaminophen (Percocet 5-325 MG Tablet) 5 MG-325 MG TABLET 1-2 TAB PO Q6P PRN PAIN Pregabalin (Lyrica) 150 MG CAPSULE 1 CAP PO BID NERVE DAMAGE (Reported) Trazodone HCl 50 MG TABLET 1 TAB PO QPM sleep (Reported) Triage Note: 48 YO MALE TO ER FOR EVAL OF CHRONIC WOUND ON R FOOT. REPORTS HE HAS HAD 2 OPERATIONS ON THE WOUND IN THE PAST, LAST ONE WAS 1 YEAR AGO. REPORTS HX OF NEUROPATHY AND HAS NO FEELING LEFT IN HIS FEET, REPORTS HE JUST GOT BACK FROM VACATION AND NOTICIED THE WOUND WAS OOZING AND RED. PA IN [place] FOR EVAL. Triage Nurses Notes Reviewed? yes Occurred: just prior to arrival Duration: day(s):, constant Timing: recent history Severity: moderate, severe Pain/Injury Location: Right: Foot. No Modifying Factors: none HPI: 48-year-old male comes into the emergency room for further evaluation of open wound to right foot. Patient reports his been there for a while. Patient reports she's had previous surgery on his foot from bone infection. He's had some drainage. History of diabetes. Some associated fevers and chills at home. Comes in for further evaluation. (Waldemar Fuentes) Past History Travel History Traveled to [place] past 21 day No Medical History Any Pertinent Medical History? 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 No (Waldemar Fuentes) Review of Systems Review of Systems Constitutional: Reports: no symptoms. EENTM: Reports: no symptoms. Respiratory: Reports: no symptoms. Cardiovascular: Reports: no symptoms. GI: Reports: no symptoms. Genitourinary: Reports: no symptoms. Musculoskeletal: Reports: see HPI. Skin: Reports: see HPI. Neurological/Psychological: Reports: no symptoms. Hematologic/Endocrine: Reports: no symptoms. Immunologic/Allergic: Reports: no symptoms. All Other Systems: Reviewed and Negative (Waldemar Fuentes) Physical Exam Physical Exam General Appearance: well developed/nourished, mild distress Head: atraumatic Eyes: Bilateral: normal appearance. Ears, Nose, Throat: normal ENT inspection, hearing grossly normal Neck: normal inspection Cardiovascular/Respiratory: no respiratory distress Back: normal inspection Leg/Knee/Thigh Left: N EXAM Foot Right: OPEN WOUND TO RIGHT FOOT, ASSOCIATED DRAINAGE, SURROUNDING ERYTHEMA, APPROXIMATELY 4X4 CM Psychiatric: awake, alert, oriented x 3 Skin: intact, normal color, warm/dry (Waldemar Fuentes) Progress Differential Diagnosis: arterial insufficiency, cellulitis, septic arthritis, gout, fracture, dislocation Plan of Care: Orders Procedure Date/time Status Consistent Carbohydrate 2 04/23 B Active OXYGEN SETUP (GEN) 04/22 2003 Active Saline Lock 04/22 2003 Active Admit to inpatient 04/22 2003 Active Vital Signs 04/22 2003 Active Activity/Ambulation 04/22 2003 Active Code Status 04/22 2003 Active LACTIC ACID 04/22 1910 Active BLOOD CULTURE 04/22 1610 Active LACTIC ACID 07/26 1610 Complete HIGH SENSITIVITY CRP 04/22 161 Complete WESTERGREN SED RATE 04/22 161 Complete COMPREHENSIVE METABOLIC PANEL 04/22 161 Complete CBC WITHOUT DIFFERENTIAL 04/22 1610 Complete C-REACTIVE PROTEIN 04/22 1600 Complete Laboratory Tests 04/22/18 1600: Anion Gap 11, Estimated GFR > 60, BUN/Creatinine Ratio 18.3, Glucose 361 H, Lactic Acid 1.7, Calcium 9.2, Total Bilirubin 1.2, AST 18, ALT 27, Alkaline Phosphatase 99, C-Reactive Prot, Quant 5.2 H, C-React Prot High Sens > 15.0 H, Total Protein 7.5, Albumin 4.0, Globulin 3.5, Albumin/Globulin Ratio 1.1, CBC w Diff NO MAN DIFF REQ, RBC 4.49 L, MCV 87.3, MCH 29.8, MCHC 34.2, RDW 14.1, MPV 11.2 H, Gran % 82.4 H, Lymphocytes % 11.8 L, Monocytes % 5.4, Eosinophils % 0.2, Basophils % 0.2, Absolute Granulocytes 9.0 H, Absolute Lymphocytes 1.3, Absolute Monocytes 0.6, Absolute Eosinophils 0, Absolute Basophils 0, ESR Westergren 51 H Microbiology 04/22 162 BLOOD: Blood Culture - RECD 04/22 1600 BLOOD: Blood Culture - RECD Diagnostic Imaging: Viewed by Me: Radiology Read. Discussed w/RAD: Radiology Read. Radiology Impression: PATIENT: ISHMAEL STUART PRESENT AGE: 48 PATIENT ACCOUNT NO: [id number] : 70 LOCATION: [facility] ORDERING PHYSICIAN: Maddi JANSEN SERVICE DATE: 04/22/18 EXAM TYPE: RAD - XRY-FOOT COMPLETE, R EXAMINATION: XR FOOT, RIGHT CLINICAL INFORMATION: Wound infection. Osteomyelitis. COMPARISON: Right foot 01/15/2018. TECHNIQUE: AP, lateral, and oblique views of the right foot. FINDINGS: There has been progressive abnormal changes of the third toe since the prior exam of 01/15/2018 at the metatarsal phalangeal joint. This joint was dislocated on the prior exam. It remains dislocated on this study. There is now bone loss of both the third metatarsal head and of the third proximal phalanges at the joint consistent with an osteomyelitis. In addition there is a nonunited fracture of the distal shaft of the third metatarsal at the neck of the metatarsal. There is periosteal reaction around the distal metatarsal shaft. Changes consistent with osteomyelitis. There is radiolucency in the soft tissues around this area which may be due to air or edema. Patient has had a prior resection of the fourth and fifth toes at the proximal metatarsals which is stable. The first and second toe of the foot have no acute changes. There is a small plantar calcaneal spur. IMPRESSION: Changes of osteomyelitis of the third toe at the metatarsophalangeal joint involving both the distal third metatarsal and the proximal phalange of the third toe. DICTATED BY: Noe Smyth MD DATE/TIME DICTATED:04/22/181715 [employer]AG [employer] WORKER:NOAM DATE/TIME TRANSCRIBED:04/22/181715 CONFIDENTIAL, DO NOT COPY WITHOUT APPROPRIATE AUTHORIZATION. <Electronically signed in Other Vendor System> SIGNED BY: Noe Smyth MD 04/22/18 [id number] (Waldemar Fuentes) Departure Departure Disposition: STILL A PATIENT Condition: Stable Clinical Impression Primary Impression: Osteomyelitis of right foot Referrals: Ishmael Moore MD (PCP/Family) Departure Forms: Customer Survey General Discharge Information Admission Note Spoke With: Nida rCistobal MD Documentation of Exam: Documentation of any treatments & extenuating circumstances including Concerns Regarding Discharge (functional status, medication knowledge or non-compliance, living conditions, etc.) that warrant an admission rather than observation: Infectious disease consultation. Podiatry consultation. Surgery. IV antibiotics. Medically not safe for discharge. Due to the fact that the patient is hemodynamically stable and not septic I feel antibiotics be held tonight until bone culture is obtained. (Waldemar Fuentes) PA/LABORATORY MECHANICAL TECHNICIAN Co-Sign Statement Statement: ED Attending supervision documentation- x I saw and evaluated the patient. I have also reviewed all the pertinent lab results and diagnostic results. I agree with the findings and the plan of care as documented in the PA's/LABORATORY MECHANICAL TECHNICIAN's documentation. Worsening chronic right foot wound with osteomyelitis [] I have reviewed the ED Record and agree with the PA's/LABORATORY MECHANICAL TECHNICIAN's documentation. [] Additions or exceptions (if any) to the PAs/LABORATORY MECHANICAL TECHNICIAN's note and plan are summarized below: [] (Wilman COLLAZO,Edd)
--- NOTE | 2018-04-22 20:50 | History & Physical ---
Juliet Dubois 04/22/182049: General Information and HPI MD Statement: I have seen and personally examined DORA STUART and documented this H&P. The patient is a 48 year old M who presented with a patient stated chief complaint of []. History of Present Illness: 48 yo gentleman with PMH of Insulin dependant uncontrolled DM, severe peripheral neuropathy, diabetic retinopathym, hypothyroidism, multiple foot surgeries, with a recent revascularization right lower extremity and partial fourth and fifth ray amputations of the right foot presents to the ER with an oozing wound on his right foot. He had gone to [place] on a vacation on the of this month, on a 39 hour long bus ride, albeit making several stops on the way. He apparently walked a lot whilst he was there wearing only socks, but seemed to have no problems. On his way back , he developed major swelling in his feet and hsd to ' cut open the straps' of his sneakers. He also started having chills but did not document any fevers. On reaching home, 2 days ago, his noticed a wound on the sole of his right foot. The patient could not feel it. He has been having numbness, tingling in his feet and pain going up his right leg but he attributes it to his ongoing diabetic neuropathy. He can comfortably bear weight on his right leg but can walk only on his heel. He does not report calf pain, warmth , redness, swelling or SOB. Allergies/Medications Allergies: Coded Allergies: No Known Allergies (12/16/16) Home Med list Atorvastatin Calcium (Lipitor) 10 MG TABLET 1 TAB PO DAILY CHOLESTEROL ( Reported) Empagliflozin (Jardiance) 25 MG TABLET 1 TAB PO DAILY DM (Reported) Insulin Detemir (Levemir) 100 UNIT/ML VIAL 60 UNITS SC BID DM (Reported) Insulin Lispro (Humalog) 100 UNIT/ML VIAL 12 UNITS SC TIDAC DM (Reported) Levothyroxine Sodium (Synthroid) 100 MCG TABLET 1 TAB PO DAILY HYPOTHYROIDISM (Reported) Lisinopril (Prinivil) 5 MG TABLET 1 TAB PO DAILY HTN (Reported) Oxycodone HCl/Acetaminophen (Percocet 5-325 MG Tablet) 5 MG-325 MG TABLET 1-2 TAB PO Q6P PRN PAIN Pregabalin (Lyrica) 150 MG CAPSULE 1 CAP PO BID NERVE DAMAGE (Reported) Trazodone HCl 50 MG TABLET 1 TAB PO QPM sleep (Reported) Past History Travel History Traveled to [place] past 21 day No Medical History Neurological: peripheral neuropathy EENT: diabetic retinopathy Cardiovascular: NONE Respiratory: NONE Gastrointestinal: NONE Hepatic: NONE Renal: nephrolithiasis Musculoskeletal: NONE Psychiatric: NONE Endocrine: diabetes, hypothyroidism Blood Disorders: NONE Cancer(s): NONE PEACH GROWER/Reproductive: NONE History of MRSA: Yes History of VRE: No History of CDIFF: No Influenza Vaccine: 08/28/17 Tetanus Vaccine: 12/17/16 Surgical History Surgical History: revascularization right lower extremity partial fourth and fifth ray amputations, right foot Past Family/Social History Functional Ability ADLs Independent: dressing, eating, toileting, bathing. Ambulation: independent IADLs Independent: shopping, housework, finances, food prep, telephone, transportation , medication admin. Review of Systems Review of Systems Constitutional: Reports: chills. Denies: diaphoresis, fever, malaise, weakness, unexplained weight loss. EENTM: Reports: visual changes. Cardiovascular: Reports: no symptoms. Respiratory: Reports: no symptoms. GI: Reports: no symptoms. Genitourinary: Reports: no symptoms. Musculoskeletal: Reports: no symptoms. Skin: Reports: change in hair/nails, erythema, lesions, lymphangitis. Neurological/Psychological: Reports: anxiety, emotional problems, numbness, paresthesia, pre-existing deficit, tingling. Hematologic/Endocrine: Reports: no symptoms. Exam & Diagnostic Data Last 24 Hrs of Vital Signs/I&O Vital Signs Date Time Temp Pulse Resp B/P B/P Pulse O2 O2 Flow FiO2 Mean Ox Delivery Rate 04/22 2257 98.0 77 16 110/70 95 Room Air 04/22 2218 98.0 82 18 91/52 96 Room Air 04/22 2205 Room Air 04/22 1932 98.0 84 16 119/73 100 Room Air 04/22 1610 98.4 76 18 126/88 98 Room Air Intake & Output 04/23 0800 04/23 0000 04/22 1600 Intake Total 300 Output Total Balance 300 Intake, Oral 300 Patient 240 lb Weight Weight Reported by Patient Measurement Method Physical Exam General Appearance Alert, Oriented X3, Cooperative, No Acute Distress Skin Lesion 7x5cm on the sole of his right foot, everted margains, wuth skin peeling off Skin Temp/Moisture Exam: Warm/Dry Sepsis Skin Exam (color): Normal for Ethnicity HEENT Atraumatic, PERRLA Neck Supple Cardiovascular Regular Rate, Normal S2, Holosystolic murmur heard in the tricuspid area Lungs Clear to Auscultation, Normal Air Movement Abdomen Normal Bowel Sounds, Soft, No Tenderness Neurological Altered sensation b/l lower limbs Extremities Normal Pulses Assessment/Plan Assessment: 48 yo moira with history of uncontrolled diabetes presents to the ER with an open wound on the sole of his right foot. His observed the wound after they came back from their vacation in [place] 2 days ago. The patient apparently walked a lot with just his socks on during the vacation and devleoped swelling in his feet during the bus ride back. He also developed chills around the same time but did not documented any fever. The patient has extensive peripheral neuropathy at baseline with numbness, tingling and parasthesia. He reports no pain in the wound. Plan: 1. Osteomyelitis -We will keep the patient NPO for possible debridment and further intervention if neccessary by Podiatry in the am -The patient does not appear septic. We would hold off on his antibiotics for now pending culture results. -Possible ID consultation -Consider MRI foot 2. Uncontrolled Diabetes Mellitus -The patient has a poor glycemic control and extensive peripheral neuropathy. -We will place an Endocrine consult for further evaluation and management -Accu-Cheks, insulin sliding Scale, continue long-acting insulin. 3. Chronic Back Pain -Resume Percocet for pain mangement. DVT prophylaxis: s/c Heparin Code status: Full code As Ranked By This Provider Problem List: 1. Wound, open, foot 2. Diabetic foot infection 3. Osteomyelitis of right foot 4. Diabetic neuropathy 5. Diabetic foot ulcer 6. Diabetes Core Measures/Misc (06/14) Acute Coronary Syndrome ACS Diagnosis: No Congestive Heart Failure Congestive Heart Failure Diagnosis No Cerebrovascular Accident CVA/TIA Diagnosis: No VTE (View Protocol) VTE Risk Factors Age>40 No Mechanical VTE Prophylaxis d/t Physical Contraindication No VTE Pharm Prophylaxis d/t NA PharmProphylax ordered Sepsis (View protocol) Sepsis Present: No If YES complete Sepsis Event Note If YES complete Sepsis Event Note Nida Cristobal MD 04/22/18 2155: Core Measures/Misc (06/14) Sepsis (View protocol) If YES complete Sepsis Event Note If YES complete Sepsis Event Note Attending MD Review Statement Attending Statement Attending MD Statement: examined this patient, discuss w/resident/PA/PHARMACOVIGILANCE SCIENTIST, agreed w/resident/PA/PHARMACOVIGILANCE SCIENTIST, reviewed EMR data (avail), discussed with nursing, discussed with case mgmt, amended to note Attending Assessment/Plan: 47-year-old male with history of insulin-dependent diabetes mellitus, right foot osteomyelitis positive for MRSA status post multiple foot surgeries in the past most recently being multiple I&D's of the right foot in December of this year. He is status post partial fifth ray resection on the right foot in December 2016. Presents complaining of pain in the right foot that began suddenly 2 days ago. Imaging in the ER reveals osteomyelitis of the foot. He is afebrile. Hemodynamically stable. Has mild leukocytosis. On examination he has large ulceration on the plantar surface of the base of the second to fourth digits of the right foot. Of note he reports that his blood glucose levels ranges in the 250s-300s at home. He is unaware of his last hemoglobin A1c levels. Back in December his A1c was 10.3. Random blood glucose levels today is in the 300s. Problems: 1. Right foot osteomyelitis 2. Poorly controlled insulin-dependent diabetes mellitus. 3. Hypothyroidism 4. Hypertension 5. Chronic pain syndrome (back pain) Plan -Admit to inpatient medical service. -N.p.o. past midnight for possible debridement or more extensive surgery by the podiatry service tomorrow. -Obtain lower extremity arterial Doppler to evaluate for underlying peripheral arterial disease that may impact the extent of surgery. -We will defer decision regarding need for MRI imaging to the podiatry service. -Hold off antibiotic therapy for now in order not to interfere with culture results. Patient currently does not appear septic. Need for ID consultation will be based on the degree of surgery done. -Resume his Percocet for pain control. May add tramadol IV for breakthrough pain. -Recommend consultation with the endocrinology service. Patient is in need of further optimization of his diabetic regimen. -DVT prophylaxis with subcutaneous heparin. Neva Neff 04/22/18 2325: Core Measures/Misc (06/14) Sepsis (View protocol) If YES complete Sepsis Event Note If YES complete Sepsis Event Note Resident Review Statement Resident Statement: examined this patient, discussed with property management intern, agreed with property management intern, reviewed EMR data (avail) Other Findings: 47-year-old gentleman insulin-dependent diabetic with diabetic retinopathy s/p laser photocoagulation,severe peripheral neuropathy and a history of right foot osteomyelitis positive for MRSA, s/p partial amputation of the fourth and fifth rays, peripheral vascular disease status post revascularization of the right lower extremity, hypothyroidism, hypertension last admitted to [facility] in December 2017 for right foot cellulitis status post I&D, with positive MSSA cultures and beta strep group G with echo negative for vegetations, treated with IV Unasyn with PICC till February 11, 2018. Coming in for evaluation of right foot pain of 2 days duration. Patient recently came back from a trip to [place]. Apparently he traveled 39 hours on a bus with frequent breaks. He has been wearing sneakers and socks and was walking around with socks. During his trip he did not have any symptoms just experienced some chills today. His examined his foot and noted to be swelling and they had to cut open his sneakers. He denies fevers, chest pain, shortness of breath, bowel and bladder symptoms. Vitals in ED were stable. Examination significant for mild systolic murmur in tricuspid area,large ulcer on plantar surface of right foot extending from the second to fourth digits of the right foot. No purulent foul-smelling discharge noted. Dorsalis pedis bilaterally heard on Doppler. Labs significant for mild leukocytosis, glucose of 361 elevated CRP and high sensitivity CRP. X-ray foot shows changes of ostium myelitis of the third toe at the metatarsal phalangeal joint involving the distal third metatarsal and the proximal phalange of the third toe. Problem list Right foot osteomyelitis Poorly controlled insulin diabetes mellitus Hypothyroidism Hypertension Plan admit to general medicine floor, vitals per protocol Hold off antibiotics for now, will keep n.p.o. at midnight for possible intervention tomorrow Podiatry consult and ID consult in the a.m. MRI for required by podiatry or ID Pain control with home medication of Percocet Accu-Cheks, insulin sliding Scale, continue long-acting insulin, and a consult in a.m. DVT prophylaxis subcu heparin Full code
[2018-04-22 22:57] VITALS: BP 110/70
[2018-04-23 07:30] VITALS: BP 110/60
--- NOTE | 2018-04-23 08:32 | PN- Housestaff ---
Harpal Lazo 04/23/18 0832: Subjective Follow-up For: R foot cellulitis ?osteomyelitis Subjective: Pt seen and examined at bedside. States that he had been walking on his socks because his foot was swelling for the past couple days. States that he has had several amputations over the past year and has neuropathy in the foot. Denies any pain. Denies fever/chills/night sweats/chest pain/abdominal pain/urinary symptoms. Review of Systems Constitutional: Reports: see HPI. Objective Last 24 Hrs of Vital Signs/I&O Vital Signs Date Time Temp Pulse Resp B/P B/P Pulse O2 O2 Flow FiO2 Mean Ox Delivery Rate 04/23 0950 90 110/60 04/23 0800 Room Air 04/23 0730 98.4 90 16 110/60 98 04/22 2257 98.0 77 16 110/70 95 Room Air 04/22 2218 98.0 82 18 91/52 96 Room Air 04/22 2205 Room Air 04/22 1932 98.0 84 16 119/73 100 Room Air 04/22 1610 98.4 76 18 126/88 98 Room Air Intake & Output 04/23 1600 04/23 0800 04/23 0000 Intake Total 300 Output Total Balance 300 Intake, Oral 300 Patient 240 lb Weight Weight Reported by Patient Measurement Method Physical Exam General Appearance: Alert, Oriented X3, Cooperative, No Acute Distress Skin: R plantar surface ulcer, necrotic, no drainage noted Skin Temp/Moisture Exam: Warm/Dry Cardiovascular: Regular Rate, Normal S1, Normal S2 Lungs: Clear to Auscultation, Normal Air Movement Abdomen: Soft, No Tenderness Neurological: Strength at 5/5 X4 Ext, R lower extremity decreased sensation up to ankle Extremities: R 4th, 5th toe amputation Current Medications: Current Medications Sig/[place] Start time Last Medication Dose Route Stop Time Status Admin Atorvastatin Calcium 10 MG DAILY 04/23 0900 AC 04/23 PO 0950 Dextrose/Sodium 1,000 ML Q8H 04/23 0830 AC 04/23 Chloride IV 0851 Heparin Sodium 5,000 UNIT Q8 04/22 2200 AC 04/23 (Porcine) SC 0536 Insulin Aspart 0 Q4 04/23 1000 AC 04/23 SC 1045 Insulin Aspart 0 TIDAC 04/23 0800 CAN SC Insulin Detemir 25 UNITS BID 04/23 0900 AC 04/23 SC 0849 Insulin Detemir 60 UNITS BID 04/22 2147 DC 04/22 SC 2336 Insulin Human Regular 0 Q6 04/23 1200 CAN SC Levothyroxine Sodium 0.1 MG DAILY AC 04/23 0700 AC 04/23 PO 0541 Lisinopril 5 MG DAILY 04/23 0900 AC 04/23 PO 0950 Oxycodone/ 1 TAB Q6P PRN 04/22 2200 AC 04/23 Acetaminophen PO 1033 Oxycodone/ 2 TAB Q6P PRN 04/22 2200 CAN Acetaminophen PO Oxycodone/ 0 .STK-MED ONE 04/22 214 DC Acetaminophen PO Oxycodone/ 2 TAB ONCE ONE 04/22 2145 DC 04/22 Acetaminophen PO 04/22 214 2159 Pregabalin 150 MG BID 04/220 AC 04/23 PO 0849 Pregabalin 150 MG BID 04/22 2148 DC PO Tramadol HCl 50 MG Q6 04/23 0600 AC 04/23 PO 1219 Trazodone HCl 50 MG QPM 04/23 2100 AC PO Last 24 Hrs of Lab/Pelon Results Last 24 Hrs of Labs/Mics: Laboratory Tests 04/22/18 1910: Lactic Acid Cancelled 04/22/18 1600: Anion Gap 11, Estimated GFR > 60, BUN/Creatinine Ratio 18.3, Glucose 361 H, Hemoglobin A1c 11.6 H, Lactic Acid 1.7, Calcium 9.2, Total Bilirubin 1.2, AST 18, ALT 27, Alkaline Phosphatase 99, C-Reactive Prot, Quant 5.2 H, C-React Prot High Sens > 15.0 H, Total Protein 7.5, Albumin 4.0, Globulin 3.5, Albumin/ Globulin Ratio 1.1, CBC w Diff NO MAN DIFF REQ, RBC 4.49 L, MCV 87.3, MCH 29.8, MCHC 34.2, RDW 14.1, MPV 11.2 H, Gran % 82.4 H, Lymphocytes % 11.8 L, Monocytes % 5.4, Eosinophils % 0.2, Basophils % 0.2, Absolute Granulocytes 9.0 H, Absolute Lymphocytes 1.3, Absolute Monocytes 0.6, Absolute Eosinophils 0, Absolute Basophils 0, ESR Westergren 51 H Microbiology 04/22 1620 BLOOD: Blood Culture - RES 04/22 1600 BLOOD: Blood Culture - RES Assessment/Plan Assessment: 47-year-old male with history of insulin-dependent diabetes mellitus, right foot osteomyelitis positive for MRSA status post multiple foot surgeries in the past most recently being multiple I&D's of the right foot in December of this year. He is status post partial fifth ray resection on the right foot in December 2016. Presents complaining of pain in the right foot that began suddenly 2 days ago. Imaging in the ER reveals osteomyelitis of the foot. He is afebrile. Hemodynamically stable. Has mild leukocytosis. On examination he has large ulceration on the plantar surface of the base of the second to fourth digits of the right foot. He is admitted for management of osteomyelitis 1. Right foot osteomyelitis 2. Poorly controlled insulin-dependent diabetes mellitus. 3. Hypothyroidism 4. Hypertension 5. Chronic pain syndrome (back pain) #R Foot osteomyelitis -Podiatry input appreciated. NPO for debridement and cultures today -ID input appreciated. Will start on Unasyn 3 g IV every 6 hours pending surgical cultures -CBC tomorrow am to monitor WBC. Last was 10.9 -Lactic acid 1.7 -XR shows "changes of osteomyelitis of the third toe at the metatarsophalangeal joint involving both the distal third metatarsal and the proximal phalange of the third toe." #IDDM poorly controlled -Endocrine input appreciated. Will follow rec's that were ordered -On D5 1/2 NS as he is NPO currently -Accuchecks, ISS -Will need endocrine outpt followup #Hypothyroidism -Resume home meds #HTN -Resume home meds, pain control #Chronic pain syndrome -Pain pathway #PVD -B/L LE US post procedure ordered DVT ppx IV access Full Code Disposition NPO, on D5 1/2NS for procedure Problem List: 1. Osteomyelitis of right foot Pain Ratin Pain Location: foot, back Pain Goal: Pain 7 or less Pain Plan: pathway Tomorrow's Labs & Rationales: Royal Phillip 04/23/18 1100: Attending MD Review Statement Attending Statement Attending MD Statement: examined this patient, discuss w/resident/PA/SALES PLANNING ANALYST, agreed w/resident/PA/SALES PLANNING ANALYST, discussed with family, reviewed EMR data (avail), discussed with nursing, discussed with case mgmt, reviewed images, amended to note Attending Assessment/Plan: No new complaints. His right foot is warm and chronic ulcer on foot. afebrile, vitals stable, labs and imaging noted. Problems: 1. Right foot osteomyelitis 2. Poorly controlled insulin-dependent diabetes mellitus. 3. Hypothyroidism 4. Hypertension 5. Chronic pain syndrome (back pain) 6. Peripheral vascular disease - NPO , podiatry eval this am, plan for OR today possible debridement. ID consult. - USG arterial f/u - home meds for pain control - Endo consulted for DM management. RISS and titrate insulin as needed. - DVT prophylaxis with subcutaneous heparin.
--- NOTE | 2018-04-23 11:40 | Cons- Infect Disease ---
General Information and HPI Consulting Request Date of Consult: 04/23/18 Requested By: Amalia COLLAZO,Royal Reason for Consult: Osteomyelitis of the right third toe and metatarsal Source of Information: patient, old records History of Present Illness: This is a 48-year-old man with a history of diabetes, with neuropathy, retinopathy and peripheral vascular disease, nephrolithiasis and hypothyroidism, status post right fourth and fifth toe amputations over one year prior to admission, hospitalized 3 months prior to admission after a puncture wound to the right foot, found to have osteomyelitis of the right third metatarsal secondary to MSSA, Group B strep and Prevotella, with a secondary alpha strep, Group B strep and MSSA bacteremia, treated with 4 weeks of Unasyn, with healing of the foot, admitted on April 22 just 1 day after returning from a trip to [place], with a new wound on the plantar aspect of his right foot, first noted on the morning of admission, associated with chills. On admission he was afebrile. Laboratory data revealed a white blood cell count of 11,000, ESR 51, glucose 361, BUN/creatinine 11 and 0.6, with normal liver enzymes. X-ray of the right foot revealed osteomyelitis of the third toe at the metatarsophalangeal joint involving both the distal third metatarsal and the proximal phalange of the third toe. He was followed off antibiotics and has remained afebrile. He is apparently scheduled for debridement in the OR later today. Allergies/Medications Allergies: Coded Allergies: No Known Allergies (12/16/16) Home Med List: Atorvastatin Calcium (Lipitor) 10 MG TABLET 1 TAB PO DAILY CHOLESTEROL ( Reported) Empagliflozin (Jardiance) 25 MG TABLET 1 TAB PO DAILY DM (Reported) Insulin Detemir (Levemir) 100 UNIT/ML VIAL 60 UNITS SC BID DM (Reported) Insulin Lispro (Humalog) 100 UNIT/ML VIAL 12 UNITS SC TIDAC DM (Reported) Levothyroxine Sodium (Synthroid) 100 MCG TABLET 1 TAB PO DAILY HYPOTHYROIDISM (Reported) Lisinopril (Prinivil) 5 MG TABLET 1 TAB PO DAILY HTN (Reported) Oxycodone HCl/Acetaminophen (Percocet 5-325 MG Tablet) 5 MG-325 MG TABLET 1-2 TAB PO Q6P PRN PAIN Pregabalin (Lyrica) 150 MG CAPSULE 1 CAP PO BID NERVE DAMAGE (Reported) Trazodone HCl 50 MG TABLET 1 TAB PO QPM sleep (Reported) Past History Travel History Traveled to [place] past 21 day No Medical History Blood Transfusion Hx: No Neurological: peripheral neuropathy EENT: diabetic retinopathy Cardiovascular: NONE Respiratory: NONE Gastrointestinal: NONE Hepatic: NONE Renal: nephrolithiasis Musculoskeletal: NONE Psychiatric: NONE Endocrine: diabetes, hypothyroidism Blood Disorders: NONE Cancer(s): NONE 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 Ambulation: independent IADLs Independent: shopping, housework, finances, food prep, telephone, transportation , medication admin. Review of Systems Review of Systems All Other Systems: Reviewed and Negative Exam & Diagnostic Data Last 24 Hrs of Vital Signs/I&O Vital Signs Date Time Temp Pulse Resp B/P B/P Pulse O2 O2 Flow FiO2 Mean Ox Delivery Rate 04/23 0950 90 110/60 04/23 0730 98.4 90 16 110/60 98 04/22 2257 98.0 77 16 110/70 95 Room Air 04/22 2218 98.0 82 18 91/52 96 Room Air 04/22 2205 Room Air 04/22 1932 98.0 84 16 119/73 100 Room Air 04/22 1610 98.4 76 18 126/88 98 Room Air Intake & Output 04/23 1600 04/23 0800 04/23 0000 Intake Total 300 Output Total Balance 300 Intake, Oral 300 Patient 240 lb Weight Weight Reported by Patient Measurement Method Physical Exam Other Physical Findings: He is awake and alert in no acute distress. He is afebrile. Skin reveals no rash. HEENT exam is negative. Neck is supple with no adenopathy. Lungs are clear. Heart regular rhythm with no murmur. Abdomen is soft, nontender with positive bowel sounds. Back no CVA tenderness. Extremities right foot swelling , mild erythema and warmth over the dorsal aspect, with a large, slightly necrotic plantar wound; decreased pulses on the right foot. Neuro neuropathy both feet. Last 24 Hours of Lab Results: Laboratory Tests 07/26 07/26 1910 1600 Chemistry Sodium (137 - 145 mmol/L) 136 L Potassium (3.5 - 5.1 mmol/L) 4.1 Chloride (98 - 107 mmol/L) 100 Carbon Dioxide (22 - 30 mmol/L) 25 Anion Gap (5 - 16) 11 BUN (9 - 20 mg/dL) 11 Creatinine (0.7 - 1.2 mg/dL) 0.6 L Estimated GFR (>60 ml/min) > 60 BUN/Creatinine Ratio (7 - 25 %) 18.3 Glucose (65 - 99 mg/dL) 361 H Hemoglobin A1c (4.2 - 5.8 %) 11.6 H Lactic Acid (0.7 - 2.1 mmol/L) Cancelled 1.7 Calcium (8.4 - 10.2 mg/dL) 9.2 Total Bilirubin (0.2 - 1.3 mg/dL) 1.2 AST (17 - 59 U/L) 18 ALT (21 - 72 U/L) 27 Alkaline Phosphatase (< 127 U/L) 99 C-Reactive Prot, Quant (<1.0 mg/dL) 5.2 H C-React Prot High Sens (1.0 - 3.0 mg/L) > 15.0 H Total Protein (6.3 - 8.2 g/dL) 7.5 Albumin (3.5 - 5.0 g/dL) 4.0 Globulin (1.9 - 4.2 gm/dL) 3.5 Albumin/Globulin Ratio (1.1 - 2.2 %) 1.1 Hematology CBC w Diff NO MAN DIFF REQ WBC (4.8 - 10.8 /CUMM) 10.9 H RBC (4.70 - 6.10 /CUMM) 4.49 L Hgb (14.0 - 18.0 G/DL) 13.4 L Hct (42 - 52 %) 39.2 L MCV (80.0 - 94.0 FL) 87.3 MCH (27.0 - 31.0 PG) 29.8 MCHC (33.0 - 37.0 G/DL) 34.2 RDW (11.5 - 14.5 %) 14.1 Plt Count (130 - 400 /CUMM) 136 MPV (7.4 - 10.4 FL) 11.2 H Gran % (42.2 - 75.2 %) 82.4 H Lymphocytes % (20.5 - 51.1 %) 11.8 L Monocytes % (1.7 - 9.3 %) 5.4 Eosinophils % (0 - 5 %) 0.2 Basophils % (0.0 - 2.0 %) 0.2 Absolute Granulocytes (1.4 - 6.5 /CUMM) 9.0 H Absolute Lymphocytes (1.2 - 3.4 /CUMM) 1.3 Absolute Monocytes (0.10 - 0.60 /CUMM) 0.6 Absolute Eosinophils (0.0 - 0.7 /CUMM) 0 Absolute Basophils (0.0 - 0.2 /CUMM) 0 ESR Westergren (0 - 10 MM) 51 H Last 24 Hours of [place] Results: Blood cultures x 2 April 22 negative Diagnostic Data Recent Imaging Findings: X-ray of the right foot revealed osteomyelitis of the third toe at the metatarsophalangeal joint involving both the distal third metatarsal and the proximal phalange of the third toe. Assessment/Plan Assessment/Plan Impression: This is a 48-year-old man with a history of diabetes, status post right fourth and fifth toe amputations over one year prior to admission, hospitalized 3 months prior to admission with polymicrobial osteomyelitis of the right third metatarsal with a secondary bacteremia secondary to MSSA, Group B strep and anaerobes, treated with 4 weeks of Unasyn, with healing of the foot, admitted on April 22 with a new wound on the plantar aspect of his right foot, found to be afebrile with a mild leukocytosis and with an x-ray of the right foot revealing osteomyelitis of the third toe and metatarsal. His clinical picture is worrisome for osteomyelitis of the right third toe and metatarsal. It is not clear if this represents progression from his previous infection or a new infection. The acute onset of his symptoms is not suggestive of acute osteomyelitis and suspect that this has been brewing for more than one day. He is apparently scheduled for debridement in the OR later today, after which he can be started on empiric antibiotics pending OR cultures. Suggestion: 1. Await debridement in the OR later today 2. Can begin Unasyn 3 g IV every 6 hours after surgery pending OR cultures Consult Acknowledgment - Thank you for your consult request.
[2018-04-23 14:13] VITALS: BP 110/72
--- NOTE | 2018-04-23 17:11 | Cons- Endocrinology ---
General Information and HPI Consulting Request Date of Consult: 04/23/18 Requested By: medical team Reason for Consult: management of uncontrolled diabetes type 2 Source of Information: patient Exam Limitations: no limitations History of Present Illness: 48 yo gentleman with PMH of uncontrolled DM type 2 on insulin, severe peripheral neuropathy, diabetic retinopathym, hypothyroidism, multiple foot procedures of the right foot, was admiited to for an oozing wound on his right foot. He is going to OR today. He will be kept NPO for the procedure. At home he was on Levemir 60 units twice a day and Novolog on an average 12 units before meals. His FSG was 325 last night and 176 this morning. Allergies/Medications Allergies: Coded Allergies: No Known Allergies (12/16/16) Home Med List: Atorvastatin Calcium (Lipitor) 10 MG TABLET 1 TAB PO DAILY CHOLESTEROL ( Reported) Empagliflozin (Jardiance) 25 MG TABLET 1 TAB PO DAILY DM (Reported) Insulin Detemir (Levemir) 100 UNIT/ML VIAL 60 UNITS SC BID DM (Reported) Insulin Lispro (Humalog) 100 UNIT/ML VIAL 12 UNITS SC TIDAC DM (Reported) Levothyroxine Sodium (Synthroid) 100 MCG TABLET 1 TAB PO DAILY HYPOTHYROIDISM (Reported) Lisinopril (Prinivil) 5 MG TABLET 1 TAB PO DAILY HTN (Reported) Oxycodone HCl/Acetaminophen (Percocet 5-325 MG Tablet) 5 MG-325 MG TABLET 1-2 TAB PO Q6P PRN PAIN Pregabalin (Lyrica) 150 MG CAPSULE 1 CAP PO BID NERVE DAMAGE (Reported) Trazodone HCl 50 MG TABLET 1 TAB PO QPM sleep (Reported) Review of Systems Review of Systems Constitutional: Reports: see HPI. Cardiovascular: Denies: chest pain. Respiratory: Denies: short of breath. GI: Denies: abdominal pain. Musculoskeletal: Reports: see HPI (right foot infection). Hematologic/Endocrine: Denies: polyuria, polydipsia. 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 Ambulation: independent IADLs Independent: shopping, housework, finances, food prep, telephone, transportation , medication admin. Exam & Diagnostic Data Last 24 Hrs of Vital Signs/I&O Vital Signs Date Time Temp Pulse Resp B/P B/P Pulse O2 O2 Flow FiO2 Mean Ox Delivery Rate 04/23 1413 98.7 83 18 110/72 96 Room Air 04/23 0950 90 110/60 04/23 0800 Room Air 04/23 0730 98.4 90 16 110/60 98 04/22 2257 98.0 77 16 110/70 95 Room Air 04/22 2218 98.0 82 18 91/52 96 Room Air 04/22 2205 Room Air 04/22 1932 98.0 84 16 119/73 100 Room Air Intake & Output 04/23 1600 04/23 0800 04/23 0000 Intake Total 875 300 Output Total Balance 875 300 Intake, IV 875 Intake, Oral 0 300 Number 0 Bowel Movements Patient 240 lb Weight Weight Reported by Patient Measurement Method Physical Exam General Appearance: no apparent distress Neck: normal inspection Respiratory: lungs clear Cardiovascular: regular rate/rhythm Gastrointestinal: soft, non-tender Extremities: right foot lesion with discharges Labs/Pelon Results: Laboratory Tests 04/22 04/22 1910 1600 Chemistry Sodium (137 - 145 mmol/L) 136 L Potassium (3.5 - 5.1 mmol/L) 4.1 Chloride (98 - 107 mmol/L) 100 Carbon Dioxide (22 - 30 mmol/L) 25 Anion Gap (5 - 16) 11 BUN (9 - 20 mg/dL) 11 Creatinine (0.7 - 1.2 mg/dL) 0.6 L Estimated GFR (>60 ml/min) > 60 BUN/Creatinine Ratio (7 - 25 %) 18.3 Glucose (65 - 99 mg/dL) 361 H Hemoglobin A1c (4.2 - 5.8 %) 11.6 H Lactic Acid (0.7 - 2.1 mmol/L) Cancelled 1.7 Calcium (8.4 - 10.2 mg/dL) 9.2 Total Bilirubin (0.2 - 1.3 mg/dL) 1.2 AST (17 - 59 U/L) 18 ALT (21 - 72 U/L) 27 Alkaline Phosphatase (< 127 U/L) 99 C-Reactive Prot, Quant (<1.0 mg/dL) 5.2 H C-React Prot High Sens (1.0 - 3.0 mg/L) > 15.0 H Total Protein (6.3 - 8.2 g/dL) 7.5 Albumin (3.5 - 5.0 g/dL) 4.0 Globulin (1.9 - 4.2 gm/dL) 3.5 Albumin/Globulin Ratio (1.1 - 2.2 %) 1.1 Hematology CBC w Diff NO MAN DIFF REQ WBC (4.8 - 10.8 /CUMM) 10.9 H RBC (4.70 - 6.10 /CUMM) 4.49 L Hgb (14.0 - 18.0 G/DL) 13.4 L Hct (42 - 52 %) 39.2 L MCV (80.0 - 94.0 FL) 87.3 MCH (27.0 - 31.0 PG) 29.8 MCHC (33.0 - 37.0 G/DL) 34.2 RDW (11.5 - 14.5 %) 14.1 Plt Count (130 - 400 /CUMM) 136 MPV (7.4 - 10.4 FL) 11.2 H Gran % (42.2 - 75.2 %) 82.4 H Lymphocytes % (20.5 - 51.1 %) 11.8 L Monocytes % (1.7 - 9.3 %) 5.4 Eosinophils % (0 - 5 %) 0.2 Basophils % (0.0 - 2.0 %) 0.2 Absolute Granulocytes (1.4 - 6.5 /CUMM) 9.0 H Absolute Lymphocytes (1.2 - 3.4 /CUMM) 1.3 Absolute Monocytes (0.10 - 0.60 /CUMM) 0.6 Absolute Eosinophils (0.0 - 0.7 /CUMM) 0 Absolute Basophils (0.0 - 0.2 /CUMM) 0 ESR Westergren (0 - 10 MM) 51 H Assessment/Plan Assessment/Plan 48 yo gentleman with PMH of uncontrolled DM type 2 on insulin, severe peripheral neuropathy, diabetic retinopathym, hypothyroidism, multiple foot procedures of the right foot, was admiited to for an oozing wound on his right foot. He is going to OR today. Currently he is NPO and will be on D51/2 NS at 75 ml/hour. Plan: 1. decrease Levemir to 25 units twice a day; 2. stop RISS every 6 hours; 3. start Novolog coverage every 4 hours; FSG < 100, no coverage 100-150, 2 units 151-200, 4 units 201-250, 6 units 251-300, 8 units 301-350, 10 units 351-400, 12 units > 400, 14 units 4. After he is back from the procedure, when he is ready to eat meals, please order consistent carbohydrates 1 diet, stop IVF and Novolog coverage every 4 hours. I will recommend: ---increase Levemir to 35 units twice a day; ---start Novolog coverage before meals and Novolog coverage at bedtime before meals bedtime 80-150, 6 units no coverage 151-200, 8 units no coverage 201-250, 10 units no coverage 251-300, 12 units 2 units 301-350, 14 units 4 units 351-400, 16 units 6 units > 400, 18 units 8 units monitor FSGs will follow Consult Acknowledgment - Thank you for your consult request.
--- NOTE | 2018-04-23 18:05 | Cons- Podiatry ---
General Information and HPI Consulting Request Date of Consult: 04/23/18 Requested By: Royal Holland MD Reason for Consult: Recurrent diabetic ulcer right foot, rule out osteomyelitis of the third ray. Source of Information: patient Exam Limitations: no limitations History of Present Illness: This is a 48-year-old diabetic male who was admitted yesterday to the primary team for a right lower extremity infection stemming from a recurrent diabetic ulcer plantarly. Podiatry is consulted to surgically manage radiographic evidence of osteomyelitis seen on x-rays taken on the date of admission. The patient splits time between this area and [facility], and after healing the incision and drainage I performed on his intermetatarsal space from his last admission he was recommended for protective diabetic shoes. He did not follow-up after healing his surgical wound and neuropathic ulceration is recommended, and furthermore purchased sneakers on his own while he was down in [place], which she believes caused the new ulceration through friction. He reports that his current wound developed in the 3 days prior to his admission, and did not have any problems before that. Patient is seen and evaluated at bedside in no apparent distress, afebrile, vital signs stable, he denies fever, nausea, vomiting, diaphoresis, shortness of breath, chest pain at the time of my examination. He reports occasional chills. Allergies/Medications Allergies: Coded Allergies: No Known Allergies (12/16/16) Home Med List: Atorvastatin Calcium (Lipitor) 10 MG TABLET 1 TAB PO DAILY CHOLESTEROL ( Reported) Empagliflozin (Jardiance) 25 MG TABLET 1 TAB PO DAILY DM (Reported) Insulin Detemir (Levemir) 100 UNIT/ML VIAL 60 UNITS SC BID DM (Reported) Insulin Lispro (Humalog) 100 UNIT/ML VIAL 12 UNITS SC TIDAC DM (Reported) Levothyroxine Sodium (Synthroid) 100 MCG TABLET 1 TAB PO DAILY HYPOTHYROIDISM (Reported) Lisinopril (Prinivil) 5 MG TABLET 1 TAB PO DAILY HTN (Reported) Oxycodone HCl/Acetaminophen (Percocet 5-325 MG Tablet) 5 MG-325 MG TABLET 1-2 TAB PO Q6P PRN PAIN Pregabalin (Lyrica) 150 MG CAPSULE 1 CAP PO BID NERVE DAMAGE (Reported) Trazodone HCl 50 MG TABLET 1 TAB PO QPM sleep (Reported) Current Medications: Current Medications Sig/[place] Start time Last Medication Dose Route Stop Time Status Admin Atorvastatin Calcium 10 MG DAILY 04/23 0900 AC 04/23 PO 0950 Dextrose/Sodium 1,000 ML Q8H 04/23 0830 AC 04/23 Chloride IV 0851 Heparin Sodium 5,000 UNIT Q8 04/22 2200 AC 04/23 (Porcine) SC 1422 Insulin Aspart 0 Q4 04/23 1000 AC 04/23 SC 1422 Insulin Aspart 0 TIDAC 04/23 0800 CAN SC Insulin Detemir 25 UNITS BID 04/23 0900 AC 04/23 SC 0849 Insulin Detemir 60 UNITS BID 04/22 2147 DC 04/22 SC 2336 Insulin Human Regular 0 Q6 04/23 1200 CAN SC Levothyroxine Sodium 0.1 MG DAILY AC 04/23 0700 AC 04/23 PO 0541 Lisinopril 5 MG DAILY 04/23 0900 AC 04/23 PO 0950 Oxycodone/ 1 TAB Q6P PRN 04/22 2200 AC 04/23 Acetaminophen PO 1033 Oxycodone/ 2 TAB Q6P PRN 04/22 2200 CAN Acetaminophen PO Oxycodone/ 0 .STK-MED ONE 04/22 2146 DC Acetaminophen PO Oxycodone/ 2 TAB ONCE ONE 04/22 2145 DC 04/22 Acetaminophen PO 04/22 2146 2159 Patient Medication 1 ED ONE ONE 04/23 1430 DC Teaching ED 04/23 1431 Pregabalin 150 MG BID 04/22 2200 AC 04/23 PO 0849 Pregabalin 150 MG BID 04/22 2148 DC PO Tramadol HCl 50 MG Q6 04/23 0600 AC 04/23 PO 1219 Trazodone HCl 50 MG QPM 04/23 2100 AC PO Past History Medical History Blood Transfusion Hx: No Neurological: peripheral neuropathy EENT: diabetic retinopathy Cardiovascular: NONE Respiratory: NONE Gastrointestinal: NONE Hepatic: NONE Renal: nephrolithiasis Musculoskeletal: NONE Psychiatric: NONE Endocrine: diabetes, hypothyroidism Blood Disorders: NONE Cancer(s): NONE 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 Ambulation: independent IADLs Independent: shopping, housework, finances, food prep, telephone, transportation , medication admin. Review of Systems Review of Systems: A 14 point review of systems was performed, and was found to be negative apart from the patient's complaints described above in the history of present illness. Exam & Diagnostic Data Vital Signs and I&O Vital Signs Date Time Temp Pulse Resp B/P B/P Pulse O2 O2 Flow FiO2 Mean Ox Delivery Rate 04/23 1413 98.7 83 18 110/72 96 Room Air 04/23 0950 90 110/60 04/23 0800 Room Air 04/23 0730 98.4 90 16 110/60 98 04/22 2257 98.0 77 16 110/70 95 Room Air 04/22 2218 98.0 82 18 91/52 96 Room Air 04/22 2205 Room Air 04/22 1932 98.0 84 16 119/73 100 Room Air Intake & Output 04/23 1600 04/23 0800 04/23 0000 04/22 1600 04/22 0800 04/22 0000 Intake Total 875 300 Output Total Balance 875 300 Intake, IV 875 Intake, Oral 0 300 Number 0 Bowel Movements Patient 240 lb Weight Weight Reported by Patient Measurement Method Physical Exam: Patient has weakly palpable pedal pulses dorsalis pedis posterior tibial are 1 out of 4 bilaterally, patient has normal temperature gradient warm to cool proximal to distal both lower extremities. Patient has capillary refill time 3 seconds it is a remaining digits. He is status post partial fourth and fifth ray resections that are fully healed. He is completely insensate from the distal tips of his toes up to the heel pad equal and bilateral. He has absence of hair growth dorsal and bilateral loss of skin turgor dorsal bilateral faint varicosities dorsal and bilateral. Is 5 out of 5 muscle power in all lower extremity compartments equal bilateral. On the plantar aspect of the right forefoot the patient has a 5 cm x 4 cm superficial neuropathic ulceration that is heterogeneous in appearance with some eschars, some fiber granular tissue exposed, some hyperkeratotic skin on the rim, lizbeth to a burn. The patient has faint erythema dorsally over the second and third rays, but not much calor, no malodor, no fluctuance, no crepitus, no lymphangitic streaking, no ecchymosis. Last 24 Hours of Labs: Laboratory Tests 04/22 1910 Chemistry Lactic Acid Cancelled Imaging Results: 3 views of the right foot taken on the date of admission. Redemonstrated is the patient being status post partial fourth and fifth ray resections that are fully healed. In the area of the third metatarsal phalangeal joint and distal metaphysis of the third metatarsal, there is significant breakdown and remodeling but does not appear acute. This could represent either chronic osteomyelitis, or neuropathic remodeling after a stress fracture from overloading. Assessment/Plan Assessment/Plan 48-year-old male with right lower extremity cellulitis, superficial neuropathic ulceration, and radiographic but not clinical evidence of chronic osteomyelitis. Patient was seen and evaluated at bedside Excisional debridement was performed on the new neuropathic ulceration down to subcutaneous tissue with sterile components of an instrument kit, and a wet-to- dry dressing was applied. Orders will be placed over the weekend for Silvadene dressings to treat the superficial changes. The radiographs are reviewed, while there are interval changes in the third metatarsal and third metatarsophalangeal joint, these do not correlate clinically with the appearance of the wounds. In my estimation, these are either chronic osteomyelitis changes from a prior infection that were not demonstrated on prior x-rays, or remodeling after a mechanical breakdown of the third metatarsal from overloading in the setting of severe peripheral neuropathy. I discussed the case with the infectious disease jury consultant prior to my own consultation, he may not need urgent surgical management, and he will be monitored over the weekend, and taken for surgical management on Thursday as needed. If he does not improve substantially over the weekend, he will be considered for a transmetatarsal amputation and Achilles tendon lengthening. I also reinforced with the patient that this was the direct result of his noncompliance with regard to making appointments with my office to procure diabetic shoes with fillers as a preventative device. He instead chose to purchase sneakers on his own in [place], which I believe to be the direct cause of his current lesion. I also informed patient that I will be relocating after April 27. I will care for him between now and the end of that date, and his care will be transferred to Wero Gandhi DPM afterwards. Problem List: 1. Cellulitis of foot, right 2. Wound, open, foot 3. Diabetic foot infection Copies To: Hiram CARDENAS,Wero; Esthela COLLAZO,Baldev Stout Consult Acknowledgment - Thank you for your consult request.
[2018-04-23 22:04] VITALS: BP 136/88
[2018-04-24 06:27] VITALS: BP 96/64
[2018-04-24 08:27] LABS: ABSOLUTE BASOPHIL COUNT 0 /CUMM (0.0-0.2); ABSOLUTE LYMPH COUNT 1.5 /CUMM (1.2-3.4); ABSOLUTE MONOCYTE COUNT 0.6 /CUMM (0.10-0.60); MEAN PLATELET VOLUME 11.8 FL (7.4-10.4)
[2018-04-24 08:56] LABS: ABSOLUTE EOSINOPHIL COUNT 0.2 /CUMM (0.0-0.7); ABSOLUTE GRANULOCYTE CT 5.8 /CUMM (1.4-6.5); BASOPHIL % 0.3 % (0.0-2.0); EOSINOPHIL % 2.1 % (0-5); GRANULOCYTE % 72.3 % (42.2-75.2); MEAN CORPUSCULAR HGB 30.4 PG (27.0-31.0); MEAN CORPUSCULAR HGB CONC 34.6 G/DL (33.0-37.0); MEAN CORPUSCULAR VOLUME 87.9 FL (80.0-94.0); PLATELET COUNT 112 /CUMM (130-400); RBC DISTRIBUTION WIDTH 13.6 % (11.5-14.5); RED BLOOD CELL CT 3.85 /CUMM (4.70-6.10)
[2018-04-24 09:01] LABS: HEMATOCRIT 33.9 % (42-52)
--- NOTE | 2018-04-24 13:51 | PN- Housestaff ---
Rony Casanova 04/24/18 1351: Subjective Follow-up For: R foot cellulitis/possible osteomyelitis Subjective: Patient seen and examined at the bedside. States he had the nurses rewrap his right foot so that it would not continue to come undone on the blanket. Otherwise denies pain except for momentary tingling. Denies fever/chills/night sweats/chest pain/abdominal pain/urinary symptoms. Review of Systems Constitutional: Reports: see HPI. Objective Last 24 Hrs of Vital Signs/I&O Vital Signs Date Time Temp Pulse Resp B/P B/P Pulse O2 O2 Flow FiO2 Mean Ox Delivery Rate 04/24 1454 98.4 88 18 124/78 94 Room Air 04/24 0627 98.4 91 20 96/64 92 04/23 2204 98.9 97 20 136/88 97 Room Air Intake & Output 04/24 1600 04/24 0800 04/24 0000 Intake Total 1000 Output Total Balance 1000 Intake, IV 0 Intake, Oral 1000 Number 0 Bowel Movements Physical Exam General Appearance: Alert, Oriented X3, Cooperative, No Acute Distress Skin: R plantar surface ulcer, necrotic, no drainage needed Skin Temp/Moisture Exam: Warm/Dry HEENT: Atraumatic, PERRLA, EOMI, Mucous Membr. moist/pink Neck: Supple, No JVD, No thryomegaly Lymphatic: Axillary nl, Cervical nl Cardiovascular: Regular Rate, Normal S1, Normal S2, No Murmurs, Gallops, Rubs Lungs: Clear to Auscultation, Normal Air Movement Abdomen: Normal Bowel Sounds, Soft, No Tenderness, No Hepatospenomegaly, No Masses Neurological: Normal Speech, Strength at 5/5 X4 Ext, R lower extremity decreased sensation up to ankle Extremities: No Clubbing, No Cyanosis, No Edema, Normal Pulses, No Tenderness/ Swelling Vascular: Normal Pulses, Pulses Symmetrical Current Medications: Current Medications Sig/[place] Start time Last Medication Dose Route Stop Time Status Admin Atorvastatin Calcium 10 MG DAILY 04/23 0900 AC 04/24 PO 0825 Dextrose/Sodium 1,000 ML Q8H 04/23 0830 DC 04/23 Chloride IV 1801 Heparin Sodium 5,000 UNIT Q8 04/22 2200 AC 04/24 (Porcine) SC 1333 Insulin Aspart 0 AC & AT BEDTIME 04/23 1910 AC 04/24 SC 1230 Insulin Aspart 0 Q4 04/23 1000 DC 04/23 SC 1815 Insulin Detemir 35 UNITS BID 04/23 2100 AC 04/24 SC 0825 Insulin Detemir 25 UNITS BID 04/23 0900 DC 04/23 SC 0849 Levothyroxine Sodium 0.1 MG DAILY AC 04/23 0700 AC 04/24 PO 0454 Lisinopril 5 MG DAILY 04/23 0900 AC 04/24 PO 0825 Oxycodone/ 1 TAB Q6P PRN 04/22 2200 AC 04/24 Acetaminophen PO 0624 Pregabalin 150 MG BID 04/22 2200 AC 04/24 PO 0825 Silver Sulfadiazine 1 CHRYSTAL DAILY 04/24 0900 AC 04/24 TOP 0824 Tramadol HCl 50 MG Q6 04/23 0600 AC 04/24 PO 1231 Trazodone HCl 50 MG QPM 04/23 2100 AC 04/23 PO 2313 Last 24 Hrs of Lab/Pelon Results Last 24 Hrs of Labs/Mics: Laboratory Tests 04/24/18 0648: CBC w Diff NO MAN DIFF REQ, RBC 3.85 L, MCV 87.9, MCH 30.4, MCHC 34.6, RDW 13.6 , MPV 11.8 H, Gran % 72.3, Lymphocytes % 18.2 L, Monocytes % 7.1, Eosinophils % 2.1, Basophils % 0.3, Absolute Granulocytes 5.8, Absolute Lymphocytes 1.5, Absolute Monocytes 0.6, Absolute Eosinophils 0.2, Absolute Basophils 0 Orders Fingersticks (last 24 hrs): 290-350 Assessment/Plan Assessment: 47-year-old male with history of insulin-dependent diabetes mellitus, right foot osteomyelitis positive for MRSA status post multiple foot surgeries in the past most recently being multiple I&D's of the right foot in December of this year. He is status post partial fifth ray resection on the right foot in December 2016. Presents complaining of pain in the right foot that began suddenly 2 days ago. Imaging in the ER reveals osteomyelitis of the foot. He is afebrile. Hemodynamically stable. Has mild leukocytosis. On examination he has large ulceration on the plantar surface of the base of the second to fourth digits of the right foot. He is admitted for management of osteomyelitis 1. Right foot osteomyelitis 2. Poorly controlled insulin-dependent diabetes mellitus. 3. Hypothyroidism 4. Hypertension 5. Chronic pain syndrome (back pain) #R Foot osteomyelitis -Podiatry input appreciated. NPO at midnight Thursday for possible debridement ThursdayApril 26 -ID input appreciated. Will start on Unasyn 3 g IV every 6 hours ONLY IF PATIENT DEVELOPS FEVER CBC tomorrow am to monitor WBC. Last was 10.9. Now down to 8.0 -Lactic acid 1.7 -XR shows "changes of osteomyelitis of the third toe at the metatarsophalangeal joint involving both the distal third metatarsal and the proximal phalange of the third toe." #IDDM poorly controlled -Endocrine input appreciated. Will follow rec's that were ordered -Accuchecks, ISS -Will need endocrine outpt followup #Hypothyroidism -Resume home meds #HTN -Resume home meds, pain control #Chronic pain syndrome -Pain pathway #PVD -B/L LE US post procedure ordered DVT ppx IV access Full Code Disposition - TBD consistent carbohydrate 1 Problem List: 1. Osteomyelitis of right foot Pain Ratin (momentarily, not present alway) Pain Location: right foot/ankle Pain Goal: Pain 4 or less Pain Plan: pathway Tomorrow's Labs & Rationales: cbc FOR INFECTION Royal Holland 04/24/18 1448: Attending MD Review Statement Attending Statement Attending MD Statement: examined this patient, discuss w/resident/PA/PROGRESSIVE CARE UNIT REGISTERED NURSE, agreed w/resident/PA/PROGRESSIVE CARE UNIT REGISTERED NURSE, discussed with family, reviewed EMR data (avail), discussed with nursing, discussed with case mgmt, reviewed images, amended to note Attending Assessment/Plan: Afebrile, vitals stable, podiatry noted. No complaints reported. Problems: 1. Right foot osteomyelitis 2. Poorly controlled insulin-dependent diabetes mellitus. 3. Hypothyroidism 4. Hypertension 5. Chronic pain syndrome (back pain) 6. Peripheral vascular disease - Diet, NPO Thursday [place]. ID consult. If spikes fever then start abx. - home meds for pain control - Endo consulted for DM management. RISS and titrate insulin as needed. - DVT prophylaxis with subcutaneous heparin. - Plan for debridement as per podiatry.
[2018-04-24 14:54] VITALS: BP 124/78
--- NOTE | 2018-04-24 15:03 | ULTRASOUND REPORT ---
EXAMINATION: US LOWER EXTREMITY ARTERIAL DOPPLER, bilateral CLINICAL INFORMATION: Nonhealing foot ulcer COMPARISON: Right foot radiographs 04/22/2018. DVT study and lower extremity arterial study (right) 01/05/2018 TECHNIQUE: Grayscale, color and spectral Doppler imaging were obtained throughout the deep arterial system of the bilateral lower extremities. Right dorsal pedis artery was not visualized secondary to overlying bandage. FINDINGS: RIGHT LOWER EXTREMITY: Normal triphasic waveforms appreciated within the right common and superficial femoral arteries. The right popliteal artery is patent but again demonstrates abnormal monophasic waveforms. Anterior tibial, posterior tibial and peroneal arteries are patent but again demonstrate abnormal monophasic waveforms. Right dorsal pedis artery cannot be visualized secondary to overlying bandage. LEFT LOWER EXTREMITY: Normal triphasic waveforms appreciated from the left common femoral artery to the left popliteal artery. Left anterior tibial artery is patent and demonstrates mainly biphasic waveforms. Left posterior tibial artery is patent and demonstrates triphasic waveforms. Left peroneal artery was not clearly visualized. Left dorsal pedis artery demonstrates normal triphasic waveforms. IMPRESSION: 1. Stable examination of the right lower extremity suggesting peripheral arterial disease from the popliteal artery into the calf. There is no arterial occlusion of the right lower extremity identified by ultrasound imaging. The right dorsal pedis artery was not clearly visualized secondary to overlying bandage. 2. Patent deep arterial system of the left lower extremity. Some biphasic waveforms present within the left anterior tibial artery suggest mild peripheral vascular disease. Overall, there are primarily normal triphasic waveforms throughout the deep arterial system of the left lower extremity. The left peroneal artery was not clearly visualized.
--- NOTE | 2018-04-24 15:56 | PN- Endocrinology ---
Assessment/Plan Endoscopy Assessment: 48 yo gentleman with PMH of uncontrolled DM type 2 on insulin, severe peripheral neuropathy, diabetic retinopathym, hypothyroidism, multiple foot procedures of the right foot, was admiited to for an oozing wound on his right foot. Possibly he will go to OR on Thursday. His blood glucose went up to above 300 this morning. He has started to eat. Plan: Continue with Levemir to 35 units twice a day; Increase Novolog coverage before meals and continue Novolog coverage at bedtime before meals bedtime 80-150, 8 units no coverage 151-200, 10 units no coverage 201-250, 12 units no coverage 251-300, 14 units 2 units 301-350, 16 units 4 units 351-400, 18 units 6 units > 400, 20 units 8 units Discussed with nursing staff Subjective Subjective: His BG has been above 300 this morning. Objective Last 24 Hrs of Vital Signs/I&O Vital Signs Date Time Temp Pulse Resp B/P B/P Pulse O2 O2 Flow FiO2 Mean Ox Delivery Rate 04/24 1454 98.4 88 18 124/78 94 Room Air 04/24 0627 98.4 91 20 96/64 92 04/23 2204 98.9 97 20 136/88 97 Room Air Intake & Output 04/24 1600 04/24 0800 04/24 0000 Intake Total 1000 Output Total Balance 1000 Intake, IV 0 Intake, Oral 1000 Number 0 Bowel Movements
[2018-04-24 22:38] VITALS: BP 110/70
[2018-04-25 06:49] VITALS: BP 118/56
--- NOTE | 2018-04-25 08:25 | PN- Infect Dx ---
Subjective Subjective: Afebrile. He notes neuropathic pain in the left foot and pain on the plantar aspect of his right foot. Objective Last 24 Hrs of Vital Signs/I&O Vital Signs Date Time Temp Pulse Resp B/P B/P Pulse O2 O2 Flow FiO2 Mean Ox Delivery Rate 04/25 0649 99.4 86 20 118/56 96 04/24 2238 98.1 84 16 110/70 94 Room Air 04/24 1600 Room Air 04/24 1454 98.4 88 18 124/78 94 Room Air Intake & Output 04/25 1600 04/25 0800 04/25 0000 Intake Total 490 480 Output Total Balance 490 480 Intake, IV 10 Intake, Oral 480 480 Number 0 Bowel Movements Physical Exam Other Physical Findings: He appears comfortable in no acute distress Extremities right foot plantar wound with a small amount of necrosis, with mild surrounding erythema and edema, mildly tender to palpation Results Last 24 Hours of Lab Results: Laboratory Tests 04/25 0730 Hematology CBC w Diff Pending WBC Pending RBC Pending Hgb Pending Hct Pending MCV Pending MCH Pending MCHC Pending RDW Pending Plt Count Pending MPV Pending Last 24 Hours of [place] Results: Blood cultures x 2 April 22 negative Recent Imaging Studies: Arterial Dopplers April 24 reveal peripheral arterial disease from the right popliteal artery into the calf, with mild peripheral vascular disease of the left lower extremity Assessment/Plan ID Impression: Stable, with temperatures and white blood cell count normal, off antibiotics, status post excisional debridement of the right foot wound, down to the subcutaneous tissue, at the bedside 2 days ago, with plans for possible debridement in the OR in the a.m. His admission x-ray of the right foot did reveal osteomyelitis of the right third toe and metatarsal; therefore suspect he will require possible amputation/debridement and another prolonged course of IV antibiotics. His arterial Doppler results are noted and he was evaluated by Vascular surgery on his last admission 3 months ago. Suggestion: 1. Await possible debridement in the OR in the a.m. 2. Could consider MRI of the right foot if no plans for surgery 3. Continue to follow off antibiotics but, if he is taken to the OR for debridement, he can be started on Unasyn 3 g IV every 6 hours postoperatively pending OR cultures Ania Tobias MD will be covering until April 28
[2018-04-25 08:46] LABS: ABSOLUTE BASOPHIL COUNT 0 /CUMM (0.0-0.2); ABSOLUTE EOSINOPHIL COUNT 0.1 /CUMM (0.0-0.7); ABSOLUTE GRANULOCYTE CT 4.9 /CUMM (1.4-6.5); ABSOLUTE LYMPH COUNT 0.8 /CUMM (1.2-3.4); ABSOLUTE MONOCYTE COUNT 0.4 /CUMM (0.10-0.60); BASOPHIL % 0.4 % (0.0-2.0); EOSINOPHIL % 2.2 % (0-5); GRANULOCYTE % 77.8 % (42.2-75.2); HEMATOCRIT 32.4 % (42-52); MEAN CORPUSCULAR HGB 30.6 PG (27.0-31.0); MEAN CORPUSCULAR HGB CONC 35.4 G/DL (33.0-37.0); MEAN CORPUSCULAR VOLUME 86.4 FL (80.0-94.0); MEAN PLATELET VOLUME 10.8 FL (7.4-10.4); PLATELET COUNT 103 /CUMM (130-400); RBC DISTRIBUTION WIDTH 13.7 % (11.5-14.5); RED BLOOD CELL CT 3.75 /CUMM (4.70-6.10); WHITE BLOOD CELL COUNT 6.2 /CUMM (4.8-10.8)
--- NOTE | 2018-04-25 13:54 | PN- Att Addend ---
Attending Addendum Attending Brief Note Afebrile, vitals stable, podiatry noted. No complaints reported. C/o leg pain for which he takes gabapentin at home. USG arterial noted. Problems: 1. Right foot osteomyelitis 2. Poorly controlled insulin-dependent diabetes mellitus. 3. Hypothyroidism 4. Hypertension 5. Chronic pain syndrome (back pain) 6. Peripheral vascular disease 7. Neuropathy - Diet, NPO Thursday [place]. ID consult. If spikes fever then start abx. - home meds for pain control - Endo consulted for DM management. RISS and titrate insulin as needed. - DVT prophylaxis with subcutaneous heparin. - Plan for debridement as per podiatry - Pain control with gabapentin. Admission Lab Results I reviewed the following labs: Laboratory Tests 04/25 07 Hematology CBC w Diff NO MAN DIFF REQ WBC (4.8 - 10.8 /CUMM) 6.2 RBC (4.70 - 6.10 /CUMM) 3.75 L Hgb (14.0 - 18.0 G/DL) 11.5 L Hct (42 - 52 %) 32.4 L MCV (80.0 - 94.0 FL) 86.4 MCH (27.0 - 31.0 PG) 30.6 MCHC (33.0 - 37.0 G/DL) 35.4 RDW (11.5 - 14.5 %) 13.7 Plt Count (130 - 400 /CUMM) 103 L MPV (7.4 - 10.4 FL) 10.8 H Gran % (42.2 - 75.2 %) 77.8 H Lymphocytes % (20.5 - 51.1 %) 13.2 L Monocytes % (1.7 - 9.3 %) 6.4 Eosinophils % (0 - 5 %) 2.2 Basophils % (0.0 - 2.0 %) 0.4 Absolute Granulocytes (1.4 - 6.5 /CUMM) 4.9 Absolute Lymphocytes (1.2 - 3.4 /CUMM) 0.8 L Absolute Monocytes (0.10 - 0.60 /CUMM) 0.4 Absolute Eosinophils (0.0 - 0.7 /CUMM) 0.1 Absolute Basophils (0.0 - 0.2 /CUMM) 0 Admission Meds I reviewed the following Meds: Current Medications Sig/[place] Start time Last Medication Dose Stop Time Status Admin Atorvastatin Calcium 10 MG DAILY 04/23 0900 AC 04/25 (Lipitor) 0948 Gabapentin 300 MG BID 04/25 1050 AC 04/25 (Neurontin) 1123 Heparin Sodium 5,000 UNIT Q8 04/22 2200 AC 04/25 (Porcine) 0517 Insulin Aspart 0 AC & AT BEDTIME 04/23 1910 AC 04/25 (NovoLOG) 1254 Insulin Detemir 35 UNITS BID 04/23 2100 AC 04/25 (Levemir) 0949 Levothyroxine Sodium 0.1 MG DAILY AC 04/23 0700 AC 04/25 (Synthroid) 0517 Lisinopril 5 MG DAILY 04/23 0900 AC 04/25 (Prinivil) 0948 Oxycodone/ 1 TAB Q6P PRN 04/22 2200 AC 04/25 Acetaminophen 1255 (Percocet) Pregabalin 150 MG BID 04/22 2200 AC 04/25 (Lyrica) 0948 Silver Sulfadiazine 1 CHRYSTAL DAILY 04/24 0900 AC 04/25 (Silvadene Cream 0950 50GM ) Tramadol HCl 50 MG Q6 04/23 0600 AC 04/24 (Ultram) 1231 Trazodone HCl 50 MG QPM 04/23 2100 AC 04/24 (Desyrel) 2106
[2018-04-25 14:56] VITALS: BP 130/82
--- NOTE | 2018-04-25 15:08 | PN- Endocrinology ---
See Addendum Assessment/Plan Endoscopy Assessment: 48 yo gentleman with PMH of uncontrolled DM type 2 on insulin, severe peripheral neuropathy, diabetic retinopathym, hypothyroidism, multiple foot procedures of the right foot, was admiited to for an oozing wound on his right foot. Possibly he will go to OR on Thursday. His blood glucose level is better today. Plan: Continue with Levemir to 35 units twice a day;However, patient should only get 25 units of levemir for tonight and tomorrow morning as he will be NPO for surgery tomorrow. Increase Novolog coverage before meals and continue Novolog coverage at bedtime before meals bedtime 80-150, 8 units no coverage 151-200, 10 units no coverage 201-250, 12 units no coverage 251-300, 14 units 2 units 301-350, 16 units 4 units 351-400, 18 units 6 units > 400, 20 units [address] Holland, and order placed. Subjective Subjective: His glucose level is better controlled today. Objective Last 24 Hrs of Vital Signs/I&O Vital Signs Date Time Temp Pulse Resp B/P B/P Pulse O2 O2 Flow FiO2 Mean Ox Delivery Rate 04/25 1456 99.2 91 18 130/82 96 Room Air 04/25 0948 78 132/80 04/25 0649 99.4 86 20 118/56 96 04/24 2238 98.1 84 16 110/70 94 Room Air 04/24 1600 Room Air Intake & Output 04/25 1600 04/25 0800 04/25 0000 Intake Total 810 490 480 Output Total Balance 810 490 480 Intake, IV 10 10 Intake, Oral 800 480 480 Number 0 0 Bowel Movements
[2018-04-25 21:39] VITALS: BP 110/70
[2018-04-26 06:59] VITALS: BP 109/66
--- NOTE | 2018-04-26 07:22 | PN- Housestaff ---
See Addendum Subjective Follow-up For: R foot osteomyelitis Subjective: Patient seen and examined at bedside. Pt denies complaints. Denies fevers/chills /night sweats/chest pain/abdominal pain/urinary symptoms/lower extremity edema Review of Systems Constitutional: Reports: see HPI. Objective Last 24 Hrs of Vital Signs/I&O Vital Signs Date Time Temp Pulse Resp B/P B/P Pulse O2 O2 Flow FiO2 Mean Ox Delivery Rate 04/26 0659 98.2 74 20 109/66 94 04/25 2139 98.8 85 16 110/70 93 Room Air 04/25 1456 99.2 91 18 130/82 96 Room Air 04/25 0948 78 132/80 Intake & Output 04/26 1600 04/26 0800 04/26 0000 Intake Total 480 Output Total Balance 480 Intake, Oral 480 Physical Exam General Appearance: Alert, Oriented X3, Cooperative, No Acute Distress Skin: RLE PLANTAR ULCER NO DRAINAGE, ULCERATED MARGINS CENTRAL DRY ESCHAR Skin Temp/Moisture Exam: Warm/Dry Cardiovascular: Regular Rate, Normal S1, Normal S2 Lungs: Clear to Auscultation, Normal Air Movement Abdomen: Soft, No Tenderness Neurological: DECREASED SENSATION RLE; UP TO ANKLE Extremities: No Edema, RLE 4TH AND 5TH DIGIT AMPUTATION Current Medications: Current Medications Sig/[place] Start time Last Medication Dose Route Stop Time Status Admin Atorvastatin Calcium 10 MG DAILY 04/23 0900 AC 04/26 PO 0857 Gabapentin 300 MG BID 04/25 1050 AC 04/26 PO 0857 Heparin Sodium 5,000 UNIT Q8 04/22 2200 AC 04/26 (Porcine) SC 0555 Insulin Aspart 0 AC & AT BEDTIME 04/23 1910 DC 04/25 VT 1840 Insulin Detemir 35 UNITS BID 04/26 2100 DC SC Insulin Detemir 18 UNITS BID 04/26 2100 CAN SC Insulin Detemir 25 UNITS BID 04/25 2100 DC 04/26 SC 04/26 0901 0857 Insulin Detemir 35 UNITS BID 04/23 2100 DC 04/25 SC 0949 Insulin Human Regular 0 Q6 04/26 0600 AC 04/26 SC 0557 Insulin Human Regular 0 Q6 04/26 0050 DC 04/26 SC 0112 Levothyroxine Sodium 0.1 MG DAILY AC 04/23 0700 AC 04/26 PO 0554 Lisinopril 5 MG DAILY 04/23 0900 AC 04/26 PO 0857 Oxycodone/ 1 TAB Q6P PRN 04/22 220 AC 04/26 Acetaminophen PO 0557 Pregabalin 150 MG BID 04/22 2200 AC 04/26 PO 0857 Silver Sulfadiazine 1 CHRYSTAL DAILY 04/24 0900 AC 04/26 TOP 0857 Tramadol HCl 50 MG Q6 04/23 0600 AC 04/25 PO 2314 Trazodone HCl 50 MG QPM 04/23 2100 AC 04/25 PO 2103 Assessment/Plan Assessment: 47-year-old male with history of insulin-dependent diabetes mellitus, right foot osteomyelitis positive for MRSA status post multiple foot surgeries in the past most recently being multiple I&D's of the right foot in December of this year. He is status post partial fifth ray resection on the right foot in December 2016. Presents complaining of pain in the right foot that began suddenly 2 days ago. Imaging in the ER reveals osteomyelitis of the foot. He is afebrile. Hemodynamically stable. Has mild leukocytosis. On examination he has large ulceration on the plantar surface of the base of the second to fourth digits of the right foot. He is admitted for management of osteomyelitis. Will likely head to OR tomorrow 04/27 pending results of MRI 1. Right foot osteomyelitis 2. Poorly controlled insulin-dependent diabetes mellitus. 3. Hypothyroidism 4. Hypertension 5. Chronic pain syndrome (back pain) #R Foot osteomyelitis -Podiatry input appreciated. Was NPO at midnight Thursday for possible debridement ThursdayApril 26, however podiatry states that there are new changes to the dorsum of the foot. Will obtain MRI of foot, with likely trip to OR tomorrow on April 27. -ID input appreciated. Will start on Unasyn 3 g IV every 6 hours ONLY IF PATIENT DEVELOPS FEVER -Last WBC was 6.2 on April 25. -Lactic acid 1.7 -XR shows "changes of osteomyelitis of the third toe at the metatarsophalangeal joint involving both the distal third metatarsal and the proximal phalange of the third toe." #IDDM poorly controlled -Endocrine input appreciated. Will follow rec's that were ordered -Accuchecks, ISS -Will need endocrine outpt followup #Hypothyroidism -Resume home meds #HTN -Resume home meds, pain control #Chronic pain syndrome -Pain pathway #PVD -B/L LE US post procedure ordered DVT ppx IV access Full Code Disposition - TBD consistent carbohydrate 1 Problem List: 1. Cellulitis of foot, right 2. Osteomyelitis of right foot Pain Ratin Pain Location: rle Pain Goal: Pain 4 or less Pain Plan: PATHWAY Tomorrow's Labs & Rationales: NA
--- NOTE | 2018-04-26 08:50 | PN- Podiatry ---
Subjective Subjective: Patient is seen and evaluated at bedside in no apparent distress, afebrile, vital signs stable. He reported that his bandage is a little tight this morning. He reports that the chills he had an admission have ceased. Review of Systems: A 14 point review of systems was performed, and was found to be negative apart from the patient's complaints described above in the history of present illness. Objective Vital Signs and I&Os Vital Signs Date Time Temp Pulse Resp B/P B/P Pulse O2 O2 Flow FiO2 Mean Ox Delivery Rate 04/26 0659 98.2 74 20 109/66 94 04/25 2139 98.8 85 16 110/70 93 Room Air 04/25 1456 99.2 91 18 130/82 96 Room Air 04/25 0948 78 132/80 Intake & Output 04/26 1600 04/26 0804/26 0000 04/25 1600 04/25 0000 Intake Total 480 810 490 480 Output Total Balance 480 810 490 480 Intake, IV 10 10 Intake, Oral 480 800 480 480 Number 0 0 Bowel Movements Physical Exam: Neurovascular status is unchanged, muscular skeletal exam is unchanged. The patient is a new onset dusky bruising around the first and second metatarsophalangeal joints that was not present on Thursday. There is no new edema, there is no new open lesions. The existing plantar superficial lesion has a central dry eschar, ulcerated margins, and epithelializing rim. There is no purulence, there is no malodor, there is no fluctuance, there is no crepitus. Current Medications: Current Medications Sig/[place] Start time Last Medication Dose Route Stop Time Status Admin Atorvastatin Calcium 10 MG DAILY 04/23 0900 AC 04/25 PO 0948 Gabapentin 300 MG BID 04/25 1050 AC 04/25 PO 2103 Heparin Sodium 5,000 UNIT Q8 04/22 2200 AC 04/26 (Porcine) SC 0555 Insulin Aspart 0 AC & AT BEDTIME 04/23 1910 DC 04/25 SC 1840 Insulin Detemir 35 UNITS BID 04/26 2100 DC SC Insulin Detemir 18 UNITS BID 04/26 2100 CAN SC Insulin Detemir 25 UNITS BID 04/25 2100 AC 04/25 SC 04/26 0901 2104 Insulin Detemir 35 UNITS BID 04/23 2100 DC 04/25 SC 0949 Insulin Human Regular 0 Q6 04/26 0600 AC 04/26 SC 0557 Insulin Human Regular 0 Q6 04/26 0050 DC 04/26 SC 0112 Levothyroxine Sodium 0.1 MG DAILY AC 04/23 07 AC 04/26 PO 0554 Lisinopril 5 MG DAILY 04/23 09 AC 04/25 PO 0948 Oxycodone/ 1 TAB Q6P PRN 04/22 2200 AC 04/26 Acetaminophen PO 0557 Pregabalin 150 MG BID 04/22 2200 AC 04/25 PO 210 Silver Sulfadiazine 1 CHRYSTAL DAILY 04/24 09 AC 04/25 TOP 0950 Tramadol HCl 50 MG Q6 04/23 06 AC 04/25 PO 231 Trazodone HCl 50 MG QPM 04/23 2100 AC 04/25 PO 2102 Results Last 48 Hours of Labs: Laboratory Tests 04/25 730 Hematology CBC w Diff NO MAN DIFF REQ WBC (4.8 - 10.8 /CUMM) 6.2 RBC (4.70 - 6.10 /CUMM) 3.75 L Hgb (14.0 - 18.0 G/DL) 11.5 L Hct (42 - 52 %) 32.4 L MCV (80.0 - 94.0 FL) 86.4 MCH (27.0 - 31.0 PG) 30.6 MCHC (33.0 - 37.0 G/DL) 35.4 RDW (11.5 - 14.5 %) 13.7 Plt Count (130 - 400 /CUMM) 103 L MPV (7.4 - 10.4 FL) 10.8 H Gran % (42.2 - 75.2 %) 77.8 H Lymphocytes % (20.5 - 51.1 %) 13.2 L Monocytes % (1.7 - 9.3 %) 6.4 Eosinophils % (0 - 5 %) 2.2 Basophils % (0.0 - 2.0 %) 0.4 Absolute Granulocytes (1.4 - 6.5 /CUMM) 4.9 Absolute Lymphocytes (1.2 - 3.4 /CUMM) 0.8 L Absolute Monocytes (0.10 - 0.60 /CUMM) 0.4 Absolute Eosinophils (0.0 - 0.7 /CUMM) 0.1 Absolute Basophils (0.0 - 0.2 /CUMM) 0 Assessment/Plan Assessment/Plan 48-year-old noncompliant uncontrolled type II diabetic male with a large superficial plantar right forefoot ulceration and radiographic evidence of chronic osteomyelitis. Patient was seen and evaluated at bedside. I discussed the case with the primary team this morning. We will postpone surgery to tomorrow and get an MRI to evaluate the new findings. From there, we will surgically plan either for a partial third ray resection or a full transmetatarsal amputation. The patient appears amenable to both at this time. I will also discussed the case with Dr. Gandhi later today with regard to management of this case going forward as I am relocating after tomorrow. Patient has been aware of this possible transition since admission. SSD + Adaptic dressing was applied to right foot Will f/u MRI findings later today. Will d/w Dr. Proctor later today when MRI findings are in. Core Measures Venous Thromboembolism VTE Risk Factors Age>40 No Mechanical VTE Prophylaxis d/t Physical Contraindication No VTE Pharm Prophylaxis d/t NA PharmProphylax ordered
--- NOTE | 2018-04-26 10:36 | PN- Diabetes ---
Assessment/Plan Diabetes Assessment: 48 yo gentleman with PMH of uncontrolled DM type 2 on insulin, severe peripheral neuropathy, diabetic retinopathym, hypothyroidism, multiple foot procedures of the right foot, was admiited to for an oozing wound on his right foot. He is going to have MRI and possible more procedures done today. Currently he is NPO. He received Levemir 25 units last night. Now he is on RISS every 6 hours. His FSGs were 176, 216, 222 and 268. Plan: After he is back from the procedure, when he is ready to eat meals, please order consistent carbohydrates 1 diet. I will recommend: ---increase Levemir to 40 units twice a day; ---start Novolog coverage before meals and Novolog coverage at bedtime before meals bedtime 80-150, 8 units no coverage 151-200, 10 units no coverage 201-250, 12 units no coverage 251-300, 14 units 2 units 301-350, 16 units 4 units 351-400, 18 units 6 units > 400, 20 units 8 units monitor FSGs will follow Subjective Subjective: He feels okay. Objective Last 24 Hrs of Vital Signs/I&O Vital Signs Date Time Temp Pulse Resp B/P B/P Pulse O2 O2 Flow FiO2 Mean Ox Delivery Rate 04/26 0857 74 109/66 04/26 0659 98.2 74 20 109/66 94 04/25 2139 98.8 85 16 110/70 93 Room Air 04/25 1456 99.2 91 18 130/82 96 Room Air Intake & Output 04/26 1600 04/26 0800 04/26 0000 Intake Total 480 Output Total Balance 480 Intake, Oral 480
--- NOTE | 2018-04-26 12:57 | MRI REPORT ---
EXAMINATION: MR RIGHT FOOT WITHOUT CONTRAST CLINICAL INFORMATION: New evidence of osteomyelitis on radiograph. Rule out osteomyelitis spread. COMPARISON: Radiograph dated 04/22/2018 and MRI dated 01/06/2018 TECHNIQUE: Multiplanar MR imaging was obtained through the right foot without contrast material on a 1.5 Jennifer magnet. FINDINGS: There is a 2 x 1.8 cm soft tissue ulceration at the plantar margin of the forefoot at the level of the 2nd and 3rd metatarsal heads. The underlying subcutaneous soft tissues are swollen and indurated with loss of the normal fat signal and generalized edema signal. The soft tissue changes extend to the depth of the MTP joints. No discrete fluid collections are identified, though sensitivity for collections is limited by the absence of intravenous contrast material. There is a separate chronic ulceration at the lateral margin of the forefoot at the site of the prior amputation of the distal halves of the 4th and 5th metatarsals. Edema signal is present within the 2nd metatarsal head and shaft with loss of normal T1 signal in the metatarsal head, consistent with osteomyelitis. The 2nd toe proximal phalanx is normal in signal intensity without additional osteomyelitis. Edema signal is present within the distal phalanx of the 2nd toe without loss of T1 signal to indicate osteomyelitis. There is a chronic fracture of the 3rd metatarsal head/neck with edema signal and loss of T1 signal within the distal fragment at the metatarsal head. There is edema signal throughout the metatarsal shaft. Subtle loss of T1 signal is likely present in the distal margin of the proximal fragment, also consistent with osteomyelitis. There is edema signal and loss of T1 signal throughout the 3rd proximal phalanx, consistent with osteomyelitis. The 3rd toe proximal phalangeal base is fragmented and remodeled with significant surrounding soft tissue edema. Edema signal and fatty atrophy in the intrinsic foot musculature is likely due to underlying neuropathic changes. There is osteoarthritis in the imaged portion of the midfoot. No additional foci of osteomyelitis are identified. IMPRESSION: Acute osteomyelitis of the 2nd and 3rd metatarsal heads and the 3rd toe proximal phalanx. Focal osteomyelitis is also likely present in the distal margin of the 3rd metatarsal shaft at the metatarsal head/neck fracture line. No abscesses are identified, though sensitivity is limited by the absence of intravenous contrast.
--- NOTE | 2018-04-26 13:28 | PN- Infect Dx ---
See Addendum Subjective Subjective: No fever or chills. Denies pain R foot. No loose stools. Review of Systems Comments: 12 points reviewed as noted, otherwise negative. Objective Last 24 Hrs of Vital Signs/I&O Vital Signs Date Time Temp Pulse Resp B/P B/P Pulse O2 O2 Flow FiO2 Mean Ox Delivery Rate 04/26 0857 74 109/66 04/26 0659 98.2 74 20 109/66 94 04/25 2139 98.8 85 16 110/70 93 Room Air 04/25 1456 99.2 91 18 130/82 96 Room Air Intake & Output 04/26 1600 04/26 0800 04/26 0000 Intake Total 480 Output Total Balance 480 Intake, Oral 480 Physical Exam Other Physical Findings: He is awake and alert in no acute distress. He is afebrile. Skin reveals no rash. HEENT exam is negative. Neck is supple with no adenopathy. Lungs are clear. Heart regular rhythm with no murmur. Abdomen is soft, nontender with positive bowel sounds. Back no CVA tenderness. Extremities right foot swelling , mild erythema and warmth over the dorsal aspect, with a large, plantar wound/ dressing in place; decreased pulses on the right foot. Neuro A&O x3, non focal. Results Last 24 Hours of Lab Results: reviewed Last 24 Hours of [place] Results: SPEC #: [id number] LESLEY: 04/22/18 STATUS: RES RECD: 04/22/18-[address]: Maddi Tate SOURCE: BLOOD ENTR: 04/22/18-[address]: Teresa COLLAZO,Ishmael Simons SPDESC: 2ND/VENOUS ORDERED: BLOOD CULTURE Procedure Result > BLOOD CULTURE REPORT Preliminary 04/23/18-1201 No growth after 1 day incubation. Specimen is examined continuously for 5 days before final report unless culture becomes positive. Recent Imaging Studies: SERVICE DATE: 04/26/18- EXAM TYPE: MRI - MRI-RT FOOT W/O RADHA EXAMINATION: MR RIGHT FOOT WITHOUT CONTRAST CLINICAL INFORMATION: New evidence of osteomyelitis on radiograph. Rule out osteomyelitis spread. COMPARISON: Radiograph dated 04/22/2018 and MRI dated 01/06/2018 TECHNIQUE: Multiplanar MR imaging was obtained through the right foot without contrast material on a 1.5 Jennifer magnet. FINDINGS: There is a 2 x 1.8 cm soft tissue ulceration at the plantar margin of the forefoot at the level of the 2nd and 3rd metatarsal heads. The underlying subcutaneous soft tissues are swollen and indurated with loss of the normal fat signal and generalized edema signal. The soft tissue changes extend to the depth of the MTP joints. No discrete fluid collections are identified, though sensitivity for collections is limited by the absence of intravenous contrast material. There is a separate chronic ulceration at the lateral margin of the forefoot at the site of the prior amputation of the distal halves of the 4th and 5th metatarsals. Edema signal is present within the 2nd metatarsal head and shaft with loss of normal T1 signal in the metatarsal head, consistent with osteomyelitis. The 2nd toe proximal phalanx is normal in signal intensity without additional osteomyelitis. Edema signal is present within the distal phalanx of the 2nd toe without loss of T1 signal to indicate osteomyelitis. There is a chronic fracture of the 3rd metatarsal head/neck with edema signal and loss of T1 signal within the distal fragment at the metatarsal head. There is edema signal throughout the metatarsal shaft. Subtle loss of T1 signal is likely present in the distal margin of the proximal fragment, also consistent with osteomyelitis. There is edema signal and loss of T1 signal throughout the 3rd proximal phalanx, consistent with osteomyelitis. The 3rd toe proximal phalangeal base is fragmented and remodeled with significant surrounding soft tissue edema. Edema signal and fatty atrophy in the intrinsic foot musculature is likely due to underlying neuropathic changes. There is osteoarthritis in the imaged portion of the midfoot. No additional foci of osteomyelitis are identified. IMPRESSION: Focal osteomyelitis is also likely present in the distal margin of the 3rd metatarsal shaft at the metatarsal head/neck fracture line. No abscesses are identified, though sensitivity is limited by the absence of intravenous contrast. DICTATED BY: Ruben Gonzalez MD DATE/TIME DICTATED:04/26/181229 WIRE FENCE ERECTOR:NOAM DATE/TIME TRANSCRIBED:04/26/181229 CONFIDENTIAL, DO NOT COPY WITHOUT APPROPRIATE AUTHORIZATION. 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 MRI results noted; acute osteomyelitis of the 2nd and 3rd metatarsal heads and the 3rd toe proximal phalanx. Suggestion: 1. F/U surgery recom. 2. Pending OR procedure (bone cx and bone bx results) cont iv Unasyn started . 3. CBC, BMP in am. ESR/CRP weekly.
[2018-04-26 14:49] VITALS: BP 104/86
[2018-04-26 22:34] VITALS: BP 124/66
--- NOTE | 2018-04-27 03:40 | PN- Housestaff ---
Juliet Dubois 04/27/18 0337: Subjective Follow-up For: osteomyelitis Subjective: Patient seen and examined at bedside. Pt complains of more pain than usual. Denies fevers/night sweats/chest pain/abdominal pain/urinary symptoms/lower extremity edema. does report some chills going on for 3 days, progressively getting better. Review of Systems Constitutional: Reports: no symptoms, chills. EENTM: Reports: no symptoms. Cardiovascular: Reports: no symptoms. Respiratory: Reports: no symptoms. Gastrointestinal: Reports: no symptoms. Genitourinary: Reports: no symptoms. Musculoskeletal: Reports: joint pain, muscle pain, muscle stiffness. Objective Last 24 Hrs of Vital Signs/I&O Vital Signs Date Time Temp Pulse Resp B/P B/P Pulse O2 O2 Flow FiO2 Mean Ox Delivery Rate 04/26 2234 98.9 87 20 124/66 93 Room Air 04/26 1449 98.7 74 16 104/86 98 Room Air 04/26 0857 74 109/66 04/26 0659 98.2 74 20 109/66 94 Intake & Output 04/27 0800 04/27 0000 04/26 1600 Intake Total 750 Output Total Balance 750 Intake, Oral 750 Physical Exam General Appearance: Alert, Oriented X3, Cooperative, No Acute Distress Skin: RLE palntar ulcer, no drainage, ulcerated margains, dry eschar Skin Temp/Moisture Exam: Warm/Dry Sepsis Skin Exam (color): Normal for Ethnicity Neck: Supple Cardiovascular: Regular Rate, Normal S1, Normal S2 Lungs: Clear to Auscultation Neurological: decreased sensation upto ankle RLE Extremities: RLE 4th, 5th digit amputatiom Assessment/Plan Assessment: 47-year-old male with history of uncontrolled insulin-dependent diabetes mellitus, right foot osteomyelitis positive for MRSA s/p multiple foot surgeries in the past most recently being multiple I&D's of the right foot in December of this year. He is status post partial fifth ray resection on the right foot in December 2016. Presents complaining of pain in the right foot that began 6 days ago after he came back from a trip to [place] where he walked a lot with only socks on. Imaging in the ER revealed osteomyelitis of the foot. He is afebrile. Hemodynamically stable. Has mild leukocytosis. On examination he has large ulceration on the plantar surface of the base of the second to fourth digits of the right foot. The patient was due for surgery on Thursday. However, Podiatry appreciated changes in his foot and decided to go ahead with another MRI which revealed acute osteomyelitis of the 2nd and 3rd metatarsal heads and the 3rd toe proximal phalanx. Focal osteomyelitis is also likely present in the distal margin of the 3rd metatarsal shaft at the metatarsal head/neck fracture line, which is a new finding compared to his Xray on admission. The patient is NPO after midnight and due for surgery today at 10am. PROBLEMS 1. Right foot osteomyelitis 2. Poorly controlled insulin-dependent diabetes mellitus. 3. Hypothyroidism 4. Hypertension 5. Chronic pain syndrome (back pain) PLAN 1. RIGHT FOOT OSTEOMYELITIS -Due for surgery 10am today =ID input appreciated. Will start on Unasyn 3 g IV every 6 hours ONLY IF PATIENT DEVELOPS FEVER. Patient is afebrile at the moment. -WBC count: -MRI od the foot done yesterday showed acute osteomyelitis of the 2nd and 3rd metatarsal heads and the 3rd toe proximal phalanx. 2.POORLY CONTROLLED IDDM -Will follow Endocrine recommendations -Accuchecks, ISS -Will request the patient to follow Endocrine outpatient 3. Hypothyroidism -Continue home meds 4.HTN -Continue home meds, pain control 5.Chronic pain syndrome -Pain pathway 6.PVD -B/L LE US post procedure ordered DVT ppx IV access Full Code Disposition - TBD consistent carbohydrate 1 -Continue home meds Problem List: 1. Hyperglycemia 2. Wound, open, foot 3. Diabetic foot infection 4. Osteomyelitis of right foot 5. Diabetic neuropathy 6. Foot pain, right Pain Ratin Pain Location: right foot Pain Goal: Pain 4 or less Pain Plan: pathway Tomorrow's Labs & Rationales: cbc and bep Royal Holland 04/27/18 1314: Attending MD Review Statement Attending Statement Attending MD Statement: examined this patient, discuss w/resident/PA/YIELD IMPROVEMENT ENGINEER, agreed w/resident/PA/YIELD IMPROVEMENT ENGINEER, discussed with family, reviewed EMR data (avail), discussed with nursing, discussed with case mgmt, reviewed images, amended to note Attending Assessment/Plan: MRI foot noted suggestive of OM is spreading to third toe. Plan for amputation as per podaitry today. Gabapentin given and pain relief provided. Managmenet of diabetes and insulin as per endocrinology. Start antibiotics after sugery. Follow wound culture. GI/dvt prophyalxis full code.
[2018-04-27 06:57] VITALS: BP 100/70
[2018-04-27 10:39] VITALS: BP 112/68
--- NOTE | 2018-04-27 11:20 | PN- Diabetes ---
Assessment/Plan Diabetes Assessment: 48 yo gentleman with PMH of uncontrolled DM type 2 on insulin, severe peripheral neuropathy, diabetic retinopathym, hypothyroidism, multiple foot procedures of the right foot, was admiited to for an oozing wound on his right foot. Levemir was increased to 40 units twice a day and he is on Novolog coverage before meals and Novolog coverage at bedtime. before meals bedtime 80-150, 8 units no coverage 151-200, 10 units no coverage 201-250, 12 units no coverage 251-300, 14 units 2 units 301-350, 16 units 4 units 351-400, 18 units 6 units > 400, 20 units 8 units Currently he is NPO as he is going to go to OR again today. He received Levemir 40 units last night and has been on RISS every 6 hours coverage. His FSGs were 149, 154 and 93. Plan: While he is kept NPO: -- start D5 1/2 NS at 75 ml/hour -- adjust RISS coverage every 6 hours FSG < 150, no coverage' 150-200, 2 units 201-250, 4 units 251-300, 6 units 301-350, 8 units 351-400, 10 units > 400, 12 units. after he is back from OR and when he is ready to eat meals, please stop IVF and RISS every 6 hours, and restart Levemir 40 units twice a day and previous Novolog coverage before meals and Novolog coverage at bedtime. Please call endo if there is any questions. will follow. Subjective Subjective: He will go to OR again today. Objective Last 24 Hrs of Vital Signs/I&O Vital Signs Date Time Temp Pulse Resp B/P B/P Pulse O2 O2 Flow FiO2 Mean Ox Delivery Rate 04/27 1039 98.4 80 18 112/68 96 Room Air 04/27 0728 76 114/78 04/27 0657 98.0 82 20 100/70 96 Room Air 04/26 2234 98.9 87 20 124/66 93 Room Air 04/26 1449 98.7 74 16 104/86 98 Room Air Intake & Output 04/27 1600 04/27 0800 04/27 0000 Intake Total 0 Output Total Balance 0 Intake, Oral 0
--- NOTE | 2018-04-27 12:05 | Operative Report ---
Operative/Inv Procedure Report Surgery Date: 04/27/18 Name of Procedure: 1 open incision and drainage deep to the deep fascia with exposure of the extensor and flexor tendon and tendon sheath multiple sites right foot 2 open, partial second and third ray resections right foot 3 intraoperative ministration of ankle block anesthesia 4 excisional debridement Pre-Operative Diagnosis: 1 open, necrotic wound right foot 2 osteomyelitis right foot 3 diabetic peripheral neuropathy Post-Operative Diagnosis: The same Estimated Blood Loss: less than 50ml Surgeon/Moisture Meter Reader: RUI BAKER DPM Anesthesia: moderate sedation, block Operative/Procedure Note Note: After obtaining informed consent the patient was brought to the operating room and placed on the operating table in supine position. The patient presents today fastened to the operating table utilizing a safety belt. After administration of IV sedation, 10 cc of 0.5% Marcaine plain was infiltrated about the patient's right ankle. Right foot and ankle were then scrubbed, prepped and draped in usual aseptic manner. His strength in the right foot, very large, full-thickness necrotic was identified inferior margin of the distal foot. Lesions noted to measure 6 cm x 6 cm. A fishmouth type incision encompassing the distal second third radius was then marked it with a skin marker and full-thickness flaps were then developed dorsally plantarly. The dissection was then carried down deep to the deep fascia exposure of the extensor and flexor tendon and tendon sheath multiple sites, approximately distally. All necrotic nonviable infected tissue was sharply evacuated of the wound bed. Dissection was then carried down to the periosteum overlying the distal second third metatarsal shafts which were incised and reflected. A sagittal bone saw was utilized to perform through and through osteotomies. The distal osseous segments were freed and passed from the operative field. Specimen was sent for both microbiologic and pathologic inspection. The open wound was then irrigated with 3 L of normal sterile saline infused with 50,000 units of bacitracin. Following this, the foot was redraped and sutured. She tragically lost. Any bleeding vessels identified were cauterized or ligated as encountered. The bone was then packed with one-inch iodoform and 2-0 nylon retention sutures were placed. The incision was then dressed with 4 x 4's, Kerlix and Brian wrap. Patient was noted to tolerate both procedure and anesthesia well and the patient was transferred to the operating room to recovery with vital signs stable.
[2018-04-27 13:05] VITALS: BP 112/60
--- NOTE | 2018-04-27 13:39 | PN- Podiatry ---
Surgical Brief Attending Note Brief Attending Note: I met with Wero Gandhi DPM this morning upon his return from vacation, and signed out and discussed this case with him. He agreed to surgically manage the patient going forward. I will be relocating after today, the patient has been aware that since my initial date of consultation on April 23. I am available for further questions and concerns at [phone].
[2018-04-27 21:14] VITALS: BP 106/72
[2018-04-28 06:44] VITALS: BP 100/70
[2018-04-28 07:56] LABS: ABSOLUTE BASOPHIL COUNT 0 /CUMM (0.0-0.2); ABSOLUTE GRANULOCYTE CT 4.9 /CUMM (1.4-6.5)
[2018-04-28 08:24] LABS: ABSOLUTE EOSINOPHIL COUNT 0.2 /CUMM (0.0-0.7); ABSOLUTE LYMPH COUNT 1.5 /CUMM (1.2-3.4); ABSOLUTE MONOCYTE COUNT 0.5 /CUMM (0.10-0.60); BASOPHIL % 0.6 % (0.0-2.0); EOSINOPHIL % 2.3 % (0-5); GRANULOCYTE % 68.7 % (42.2-75.2); HEMATOCRIT 34.5 % (42-52); MEAN CORPUSCULAR HGB CONC 34.2 G/DL (33.0-37.0); MEAN CORPUSCULAR VOLUME 87.9 FL (80.0-94.0); MEAN PLATELET VOLUME 10.6 FL (7.4-10.4); RBC DISTRIBUTION WIDTH 14.1 % (11.5-14.5); RED BLOOD CELL CT 3.93 /CUMM (4.70-6.10); WHITE BLOOD CELL COUNT 7.1 /CUMM (4.8-10.8)
[2018-04-28 08:40] LABS: PLATELET COUNT 163 /CUMM (130-400)
--- NOTE | 2018-04-28 08:42 | PN- Housestaff ---
Juliet Dubois 04/28/18 0842: Subjective Follow-up For: osteomyelitis Complaints: no complaints Subjective: Patient examined at bedside. Patient is postop day 1 2nd/3rd ray right foot osteotomy. The patient is scheduled to go for a re-exploration surgery with podiatry this Thursday. The patient had no complaints overnight. Reports that his pain and chills have improved. He appears to be distressed following the osteotomies on his two toes. Complains pain from his right foot has migrated to his left foot since the surgery. Denies fevershortness of breath/ palpitations/lightheadedness/dizziness, shortness of breath/headache. Review of Systems Constitutional: Reports: see HPI. Objective Last 24 Hrs of Vital Signs/I&O Vital Signs Date Time Temp Pulse Resp B/P B/P Pulse O2 O2 Flow FiO2 Mean Ox Delivery Rate 04/28 08 78 112/80 04/28 0644 98.7 94 20 100/70 93 Room Air 04/27 2114 98.9 91 16 106/72 97 Room Air Intake & Output 04/28 1600 04/28 0800 04/28 0000 Intake Total 340 600 Output Total Balance 340 600 Intake, IV 100 Intake, Oral 240 600 Number 3 Bowel Movements Physical Exam General Appearance: Alert, Oriented X3, Cooperative, No Acute Distress Skin: right food bandaged post surgery. minimal oozing from the dressing Skin Temp/Moisture Exam: Warm/Dry Neck: Supple Cardiovascular: Regular Rate, Normal S1, Normal S2, No Murmurs Lungs: Clear to Auscultation Neurological: Normal Speech, Sensation absent RLE upto the ankle Assessment/Plan Assessment: 47-year-old male with history of uncontrolled insulin-dependent diabetes mellitus, right foot osteomyelitis positive for MRSA s/p multiple foot surgeries in the past most recently being multiple I&D's of the right foot in December of this year. He is status post partial fifth ray resection on the right foot in December 2016. Presents complaining of pain in the right foot that began a week ago after he came back from a trip to [place] where he walked a lot with only socks on. Imaging in the ER revealed osteomyelitis of the foot. He is afebrile. Hemodynamically stable. The patient is post op DAY1 for 2nd and 3rd ray osteotomies right foot. PROBLEMS 1. Right foot osteomyelitis 2. Poorly controlled insulin-dependent diabetes mellitus. 3. Hypothyroidism 4. Hypertension 5. Chronic pain syndrome (back pain) PLAN 1. RIGHT FOOT OSTEOMYELITIS -Had surgery yesterday -ID input appreciated. Stared Unasyn 3 g IV every 6 hours. - Patient is afebrile at the moment. We will keep monitoring his temperature. -WBC count: 7.1 -Scheduled for reexploration this Thursday. -We will continue him on Unasyn. -We will follow up on wound culture to narrow down his antibiotics. -ID F/U 2.POORLY CONTROLLED IDDM -Will follow Endocrine recommendations -Accuchecks, ISS -Will request the patient to follow Endocrine outpatient 3. Hypothyroidism -Continue home meds 4.HTN -Continue home meds, pain control 5.Chronic pain syndrome -Pain pathway 6.PVD -B/L LE US post procedure ordered DVT ppx IV access Full Code Disposition - TBD consistent carbohydrate 1 -Continue home meds Problem List: 1. Osteomyelitis of right foot 2. Hyperglycemia 3. Diabetic neuropathy 4. Cellulitis 5. PAD (peripheral artery disease) 6. Diabetes Pain Ratin Pain Location: right foot Pain Goal: Pain 4 or less Pain Plan: pathway Tomorrow's Labs & Rationales: . Royal Holland 04/28/18 1052: Attending MD Review Statement Attending Statement Attending MD Statement: examined this patient, discuss w/resident/PA/CURRICULUM COUNSELOR, agreed w/resident/PA/CURRICULUM COUNSELOR, discussed with family, reviewed EMR data (avail), discussed with nursing, discussed with case mgmt, reviewed images, amended to note Attending Assessment/Plan: Patient denies any new complaints. Pain controlled. Patient here with poorly controlled DM and peripheral vascular disease admitted after MRI foot noted suggestive of OM is spreading to third toe s/p surgery as per podaitry and need for surgical re-exploration on Thursday. Gabapentin given and pain relief provided. Managmenet of diabetes and insulin as per endocrinology. ABX as per ID, iv unasyn. Follow wound culture. GI/dvt prophyalxis full code.
--- NOTE | 2018-04-28 11:19 | PN- Diabetes ---
Assessment/Plan Diabetes Assessment: 48 yo gentleman with PMH of uncontrolled DM type 2 on insulin, severe peripheral neuropathy, diabetic retinopathym, hypothyroidism, multiple foot procedures of the right foot, was admiited to for an oozing wound on his right foot. Levemir was increased to 40 units twice a day and he is on Novolog coverage before meals and Novolog coverage at bedtime. before meals bedtime 80-150, 8 units no coverage 151-200, 10 units no coverage 201-250, 12 units no coverage 251-300, 14 units 2 units 301-350, 16 units 4 units 351-400, 18 units 6 units > 400, 20 units 8 units His FSGs were 95, 108, 227, 218 and 170. MRI showed acute osteomyelitis involving 2nd, 3rd metatarsal heads, 3rd toe proximal phalax and distal margin of the 3rd metatarsal shaft. As per patient, another foot procedure has been scheduled on this Thursday. Plan: continue the current insulin regimen for now. monitor FSGs. will follow. Subjective Subjective: He feels okay this morning. Objective Last 24 Hrs of Vital Signs/I&O Vital Signs Date Time Temp Pulse Resp B/P B/P Pulse O2 O2 Flow FiO2 Mean Ox Delivery Rate 04/28 0823 78 112/80 04/28 0644 98.7 94 20 100/70 93 Room Air 04/27 2114 98.9 91 16 106/72 97 Room Air 04/27 1305 98.0 80 20 112/60 96 Room Air Intake & Output 04/28 1600 04/28 0800 08 0000 Intake Total 340 600 Output Total Balance 340 600 Intake, IV 100 Intake, Oral 240 600 Number 3 Bowel Movements Findings Pertinent Lab/Pelon Results: Laboratory Tests 04/28 06 Chemistry Sodium (137 - 145 mmol/L) 138 Potassium (3.5 - 5.1 mmol/L) 4.0 Chloride (98 - 107 mmol/L) 102 Carbon Dioxide (22 - 30 mmol/L) 24 Anion Gap (5 - 16) 12 BUN (9 - 20 mg/dL) 15 Creatinine (0.7 - 1.2 mg/dL) 0.6 L Estimated GFR (>60 ml/min) > 60 BUN/Creatinine Ratio (7 - 25 %) 25.0 Hematology CBC w Diff NO MAN DIFF REQ WBC (4.8 - 10.8 /CUMM) 7.1 RBC (4.70 - 6.10 /CUMM) 3.93 L Hgb (14.0 - 18.0 G/DL) 11.8 L Hct (42 - 52 %) 34.5 L MCV (80.0 - 94.0 FL) 87.9 MCH (27.0 - 31.0 PG) 30.0 MCHC (33.0 - 37.0 G/DL) 34.2 RDW (11.5 - 14.5 %) 14.1 Plt Count (130 - 400 /CUMM) 163 MPV (7.4 - 10.4 FL) 10.6 H Gran % (42.2 - 75.2 %) 68.7 Lymphocytes % (20.5 - 51.1 %) 20.8 Monocytes % (1.7 - 9.3 %) 7.6 Eosinophils % (0 - 5 %) 2.3 Basophils % (0.0 - 2.0 %) 0.6 Absolute Granulocytes (1.4 - 6.5 /CUMM) 4.9 Absolute Lymphocytes (1.2 - 3.4 /CUMM) 1.5 Absolute Monocytes (0.10 - 0.60 /CUMM) 0.5 Absolute Eosinophils (0.0 - 0.7 /CUMM) 0.2 Absolute Basophils (0.0 - 0.2 /CUMM) 0
--- NOTE | 2018-04-28 12:48 | PN- Infect Dx ---
Subjective Subjective: Afebrile. He has some discomfort in the right foot. Objective Last 24 Hrs of Vital Signs/I&O Vital Signs Date Time Temp Pulse Resp B/P B/P Pulse O2 O2 Flow FiO2 Mean Ox Delivery Rate 04/28 823 78 112/80 04/28 0644 98.7 94 20 100/70 93 Room Air 04/27 2114 98.9 91 16 106/72 97 Room Air 04/27 1305 98.0 80 20 112/60 96 Room Air Intake & Output 04/28 1600 04/28 0800 04/28 0000 Intake Total 340 600 Output Total Balance 340 600 Intake, IV 100 Intake, Oral 240 600 Number 3 Bowel Movements Physical Exam Other Physical Findings: He appears comfortable in no acute distress Extremities right foot dressing intact Results Last 24 Hours of Lab Results: Laboratory Tests 04/28 629 Chemistry Sodium (137 - 145 mmol/L) 138 Potassium (3.5 - 5.1 mmol/L) 4.0 Chloride (98 - 107 mmol/L) 102 Carbon Dioxide (22 - 30 mmol/L) 24 Anion Gap (5 - 16) 12 BUN (9 - 20 mg/dL) 15 Creatinine (0.7 - 1.2 mg/dL) 0.6 L Estimated GFR (>60 ml/min) > 60 BUN/Creatinine Ratio (7 - 25 %) 25.0 Hematology CBC w Diff NO MAN DIFF REQ WBC (4.8 - 10.8 /CUMM) 7.1 RBC (4.70 - 6.10 /CUMM) 3.93 L Hgb (14.0 - 18.0 G/DL) 11.8 L Hct (42 - 52 %) 34.5 L MCV (80.0 - 94.0 FL) 87.9 MCH (27.0 - 31.0 PG) 30.0 MCHC (33.0 - 37.0 G/DL) 34.2 RDW (11.5 - 14.5 %) 14.1 Plt Count (130 - 400 /CUMM) 163 MPV (7.4 - 10.4 FL) 10.6 H Gran % (42.2 - 75.2 %) 68.7 Lymphocytes % (20.5 - 51.1 %) 20.8 Monocytes % (1.7 - 9.3 %) 7.6 Eosinophils % (0 - 5 %) 2.3 Basophils % (0.0 - 2.0 %) 0.6 Absolute Granulocytes (1.4 - 6.5 /CUMM) 4.9 Absolute Lymphocytes (1.2 - 3.4 /CUMM) 1.5 Absolute Monocytes (0.10 - 0.60 /CUMM) 0.5 Absolute Eosinophils (0.0 - 0.7 /CUMM) 0.2 Absolute Basophils (0.0 - 0.2 /CUMM) 0 Last 24 Hours of Pelon Results: OR culture April 27 labeled right foot bone pending Assessment/Plan ID Impression: Stable, with temperatures and white blood cell count remaining normal, on Unasyn , begun yesterday after he was taken to the OR for open, partial second and third ray resections of the right foot for osteomyelitis, suspected clinically and confirmed on the recent MRI. He is apparently scheduled for a return to the OR on April 30. Suggestion: 1. Follow-up OR cultures 2. Await return to the OR on April 30 3. Continue Unasyn pending above
[2018-04-28 13:50] VITALS: BP 100/60
[2018-04-28 22:49] VITALS: BP 115/66
[2018-04-29 07:05] VITALS: BP 108/60
--- NOTE | 2018-04-29 07:06 | PN- Housestaff ---
See Addendum Juliet Dubois 04/29/18 0705: Subjective Follow-up For: osteomyelitis Subjective: Patient was seen and examined at bedside today. He complains of some heel pain due to excesssive walking on the heel. However, he is happy with the overal pain control. He says he is anxious about his re-exploration surgery on Thursday , worried about how much more of his foot is he going to lose, and how hard it would be for him to walk if he lost his foot. We resassured him and told him to try not worrying till he has to. He denies fevers. chills, shortness of breath, palpitations, nausea, vomiting or diarrhea. Review of Systems Constitutional: Reports: see HPI. Objective Last 24 Hrs of Vital Signs/I&O Vital Signs Date Time Temp Pulse Resp B/P B/P Pulse O2 O2 Flow FiO2 Mean Ox Delivery Rate 04/29 0816 72 102/68 04/29 0800 Room Air 04/29 0705 99.0 75 18 108/60 94 Room Air 04/28 2249 99.0 76 20 115/66 97 Room Air 04/28 1350 98.3 84 17 100/60 93 Room Air Intake & Output 04/29 1600 04/29 0800 04/29 0000 Intake Total 580 580 Output Total Balance 580 580 Intake, IV 100 100 Intake, Oral 480 480 Physical Exam General Appearance: Alert, Oriented X3, Cooperative, No Acute Distress Skin: No Rashes, No Breakdown, right foot bandaged post surgery Neck: Supple Cardiovascular: Regular Rate, Normal S1, Normal S2 Lungs: Clear to Auscultation Neurological: sensation decreased upto the ankle on his right foot Extremities: No Edema, Normal Pulses Assessment/Plan Assessment: 47-year-old male with history of uncontrolled insulin-dependent diabetes mellitus, right foot osteomyelitis positive for MRSA s/p multiple foot surgeries in the past most recently being multiple I&D's of the right foot in December of this year. He is status post partial fifth ray resection on the right foot in December 2016. Admitted for right foot osteomyelitis. Imaging in the ER revealed osteomyelitis of the foot. He is afebrile. Hemodynamically stable. The patient is post op DAY2 for 2nd and 3rd ray osteotomies right foot. He would be going in for a re-exploration surgery this Thursday. He is anxious and worried about potentially having to lose his foot. We reassured him at bedside and would go talk to him later in the day. PROBLEMS 1. Right foot osteomyelitis 2. Poorly controlled insulin-dependent diabetes mellitus. 3. Hypothyroidism 4. Hypertension 5. Chronic pain syndrome (back pain) PLAN 1. RIGHT FOOT OSTEOMYELITIS -Post op Day 2, right foot 2nd/3rd ray resection -ID input appreciated. Continue Unasyn 3 g IV every 6 hours. - Patient is afebrile at the moment. We will keep monitoring his temperature. -WBC count: 7.1 -Scheduled for reexploration this Thursday. -We will continue him on Unasyn. -We will follow up on wound culture to narrow down his antibiotics. -ID F/U 2.POORLY CONTROLLED IDDM -Will follow Endocrine recommendations -Accuchecks, ISS -Will request the patient to follow Endocrine outpatient 3. Hypothyroidism -Continue home meds 4.HTN -Continue home meds, pain control 5.Chronic pain syndrome -Pain pathway 6.PVD -B/L LE US post procedure ordered DVT ppx IV access Full Code Disposition - TBD consistent carbohydrate 1 -Continue home meds Problem List: 1. Osteomyelitis of right foot 2. Hyperglycemia 3. Diabetic foot ulcer 4. Diabetes Pain Ratin Pain Location: right foot heel Pain Goal: Pain 4 or less Pain Plan: pathway Tomorrow's Labs & Rationales: cbc and bep Miquel Hollandrobbin 04/29/18 1109: Attending MD Review Statement Attending Statement Attending MD Statement: examined this patient, discuss w/resident/PA/PHYSICS PROFESSOR, agreed w/resident/PA/PHYSICS PROFESSOR, discussed with family, reviewed EMR data (avail), discussed with nursing, discussed with case mgmt, reviewed images, amended to note Attending Assessment/Plan: Patient denies any new complaints. Pain controlled. No bleeding events. Comfortably lying in bed. Patient here with poorly controlled DM and peripheral vascular disease admitted after MRI foot noted suggestive of OM is spreading to third toe s/p surgery as per podaitry and need for surgical re-exploration on Thursday. Gabapentin given and pain relief provided. Managmenet of diabetes and insulin as per endocrinology. ABX as per ID, iv unasyn. Follow wound culture polymicrobial. F/u ID recs. PICC line ?duration of abx. GI/dvt prophyalxis full code.
[2018-04-29 08:26] LABS: ABSOLUTE BASOPHIL COUNT 0 /CUMM (0.0-0.2); ABSOLUTE EOSINOPHIL COUNT 0.2 /CUMM (0.0-0.7); ABSOLUTE GRANULOCYTE CT 3.6 /CUMM (1.4-6.5); ABSOLUTE LYMPH COUNT 1.9 /CUMM (1.2-3.4); ABSOLUTE MONOCYTE COUNT 0.5 /CUMM (0.10-0.60); BASOPHIL % 0.6 % (0.0-2.0); EOSINOPHIL % 2.7 % (0-5); GRANULOCYTE % 57.7 % (42.2-75.2); HEMATOCRIT 31.5 % (42-52); MEAN CORPUSCULAR HGB CONC 34.7 G/DL (33.0-37.0); MEAN CORPUSCULAR VOLUME 86.6 FL (80.0-94.0); PLATELET COUNT 156 /CUMM (130-400); RBC DISTRIBUTION WIDTH 14.2 % (11.5-14.5); RED BLOOD CELL CT 3.64 /CUMM (4.70-6.10); WHITE BLOOD CELL COUNT 6.3 /CUMM (4.8-10.8)
--- NOTE | 2018-04-29 10:06 | PN- Diabetes ---
Assessment/Plan Diabetes Assessment: 48 yo gentleman with PMH of uncontrolled DM type 2 on insulin, severe peripheral neuropathy, diabetic retinopathym, hypothyroidism, multiple foot procedures of the right foot, was admiited to for an oozing wound on his right foot. Levemir was increased to 40 units twice a day and he is on Novolog coverage before meals and Novolog coverage at bedtime. before meals bedtime 80-150, 8 units no coverage 151-200, 10 units no coverage 201-250, 12 units no coverage 251-300, 14 units 2 units 301-350, 16 units 4 units 351-400, 18 units 6 units > 400, 20 units 8 units His FSGs were 170, 145, 165, 197 and 225. Patient had snack at bedtime. MRI showed acute osteomyelitis involving 2nd, 3rd metatarsal heads, 3rd toe proximal phalax and distal margin of the 3rd metatarsal shaft. Another foot procedure has been scheduled on Thursday. Plan: continue the current insulin regimen for now; When he will be kept NPO for procedure, I will recommend decreasing Levemir to 25 units twice a day, putting patent on D5 1/2 NS at 50 ml/hour and covering patient with Novolog coverage every 4 hours-- FSG < 150, no coverage, 150-200, 2 units; 201-250, 4 units; 251-300, 6 units; 301-350, 8 units; 351-400, 10 units and > 400, 12 units. Please call if there are any questions. will follow Subjective Subjective: He feels okay. Objective Last 24 Hrs of Vital Signs/I&O Vital Signs Date Time Temp Pulse Resp B/P B/P Pulse O2 O2 Flow FiO2 Mean Ox Delivery Rate 04/29 0816 72 102/68 04/29 08 Room Air 04/29 0705 99.0 75 18 108/60 94 Room Air 04/28 2249 99.0 76 20 115/66 97 Room Air 04/28 1350 98.3 84 17 100/60 93 Room Air Intake & Output 04/29 1600 04/29 0804/29 0000 Intake Total 580 580 Output Total Balance 580 580 Intake, IV 100 100 Intake, Oral 480 480 Findings Pertinent Lab/Pelon Results: Laboratory Tests 04/29 0633 Chemistry Sodium (137 - 145 mmol/L) 134 L Potassium (3.5 - 5.1 mmol/L) 4.1 Chloride (98 - 107 mmol/L) 101 Carbon Dioxide (22 - 30 mmol/L) 27 Anion Gap (5 - 16) 6 BUN (9 - 20 mg/dL) 14 Creatinine (0.7 - 1.2 mg/dL) 0.6 L Estimated GFR (>60 ml/min) > 60 BUN/Creatinine Ratio (7 - 25 %) 23.3 Hematology CBC w Diff NO MAN DIFF REQ WBC (4.8 - 10.8 /CUMM) 6.3 RBC (4.70 - 6.10 /CUMM) 3.64 L Hgb (14.0 - 18.0 G/DL) 10.9 L Hct (42 - 52 %) 31.5 L MCV (80.0 - 94.0 FL) 86.6 MCH (27.0 - 31.0 PG) 30.0 MCHC (33.0 - 37.0 G/DL) 34.7 RDW (11.5 - 14.5 %) 14.2 Plt Count (130 - 400 /CUMM) 156 MPV (7.4 - 10.4 FL) 10.0 Gran % (42.2 - 75.2 %) 57.7 Lymphocytes % (20.5 - 51.1 %) 30.9 Monocytes % (1.7 - 9.3 %) 8.1 Eosinophils % (0 - 5 %) 2.7 Basophils % (0.0 - 2.0 %) 0.6 Absolute Granulocytes (1.4 - 6.5 /CUMM) 3.6 Absolute Lymphocytes (1.2 - 3.4 /CUMM) 1.9 Absolute Monocytes (0.10 - 0.60 /CUMM) 0.5 Absolute Eosinophils (0.0 - 0.7 /CUMM) 0.2 Absolute Basophils (0.0 - 0.2 /CUMM) 0
--- NOTE | 2018-04-29 11:17 | PN- Infect Dx ---
Subjective Subjective: Afebrile. He notes minimal discomfort in the right foot. Objective Last 24 Hrs of Vital Signs/I&O Vital Signs Date Time Temp Pulse Resp B/P B/P Pulse O2 O2 Flow FiO2 Mean Ox Delivery Rate 04/29 0816 72 102/68 04/29 0800 Room Air 04/29 0705 99.0 75 18 108/60 94 Room Air 04/28 2249 99.0 76 20 115/66 97 Room Air 04/28 1350 98.3 84 17 100/60 93 Room Air Intake & Output 04/29 1600 04/29 0800 04/29 0000 Intake Total 580 580 Output Total Balance 580 580 Intake, IV 100 100 Intake, Oral 480 480 Physical Exam Other Physical Findings: He appears comfortable in no acute distress Extremities right foot dressing intact Results Last 24 Hours of Lab Results: Laboratory Tests 04/29 633 Chemistry Sodium (137 - 145 mmol/L) 134 L Potassium (3.5 - 5.1 mmol/L) 4.1 Chloride (98 - 107 mmol/L) 101 Carbon Dioxide (22 - 30 mmol/L) 27 Anion Gap (5 - 16) 6 BUN (9 - 20 mg/dL) 14 Creatinine (0.7 - 1.2 mg/dL) 0.6 L Estimated GFR (>60 ml/min) > 60 BUN/Creatinine Ratio (7 - 25 %) 23.3 Hematology CBC w Diff NO MAN DIFF REQ WBC (4.8 - 10.8 /CUMM) 6.3 RBC (4.70 - 6.10 /CUMM) 3.64 L Hgb (14.0 - 18.0 G/DL) 10.9 L Hct (42 - 52 %) 31.5 L MCV (80.0 - 94.0 FL) 86.6 MCH (27.0 - 31.0 PG) 30.0 MCHC (33.0 - 37.0 G/DL) 34.7 RDW (11.5 - 14.5 %) 14.2 Plt Count (130 - 400 /CUMM) 156 MPV (7.4 - 10.4 FL) 10.0 Gran % (42.2 - 75.2 %) 57.7 Lymphocytes % (20.5 - 51.1 %) 30.9 Monocytes % (1.7 - 9.3 %) 8.1 Eosinophils % (0 - 5 %) 2.7 Basophils % (0.0 - 2.0 %) 0.6 Absolute Granulocytes (1.4 - 6.5 /CUMM) 3.6 Absolute Lymphocytes (1.2 - 3.4 /CUMM) 1.9 Absolute Monocytes (0.10 - 0.60 /CUMM) 0.5 Absolute Eosinophils (0.0 - 0.7 /CUMM) 0.2 Absolute Basophils (0.0 - 0.2 /CUMM) 0 Last 24 Hours of Pelon Results: OR culture April 27 labeled right foot bone positive for Staph aureus, beta strep Group B and several gram-negative rods Assessment/Plan ID Impression: Stable, with temperatures and white blood cell count remaining normal, on Unasyn , Day 2 of treatment for polymicrobial osteomyelitis of the right foot, now 2 days status post open partial second and third ray resections. He is scheduled for a return to the OR tomorrow for completion of the right TMA and possible wound closure, and he will need a minimum of 4 weeks of IV antibiotics for residual osteomyelitis. Suggestion: 1. Await return to the OR in the a.m. 2. Follow-up final OR cultures 3. Would proceed with placement of a PICC by the a.m. 4. Continue Unasyn pending above
[2018-04-29 14:04] VITALS: BP 100/52
[2018-04-29 21:47] VITALS: BP 108/64
[2018-04-30] VITALS (7 sets, daily range): BP systolic 98–160; BP diastolic 60–72
--- NOTE | 2018-04-30 07:20 | PN- Housestaff ---
Juliet Dubois 04/30/18 0720: Subjective Follow-up For: right foot osteomyelitis Subjective: Patient seen and examined at bedside. He is going to the OR today for re- exploration of his foot. He says he is in a lot of pain. He rates the pain 10/ 10. He also complains of some oozing from his wound overnight. He denies fever, chills, nausea, vomiting, diarrhea or constipation. Review of Systems Constitutional: Reports: see HPI. Objective Last 24 Hrs of Vital Signs/I&O Vital Signs Date Time Temp Pulse Resp B/P B/P Pulse O2 O2 Flow FiO2 Mean Ox Delivery Rate 04/30 0803 72 112/70 04/30 0651 98.9 69 20 100/60 95 04/30 0414 98.5 74 18 160/72 96 04/30 0033 98.3 72 20 98/68 96 04/30 0028 98.3 72 20 98/68 96 04/29 2147 97.9 84 16 108/64 96 Room Air 04/29 1404 97.5 77 20 100/52 97 Room Air Intake & Output 04/30 1600 04/30 0800 04/30 0000 Intake Total 520 250 Output Total Balance 520 250 Intake, IV 400 10 Intake, Oral 120 240 Physical Exam General Appearance: Alert, Oriented X3, Cooperative, Moderate Distress Skin: No Rashes, Right foot bandaged post surgery Neck: Supple Cardiovascular: Regular Rate, Normal S1, Normal S2 Lungs: Clear to Auscultation Abdomen: Normal Bowel Sounds, Soft Assessment/Plan Assessment: 47-year-old male with history of uncontrolled insulin-dependent diabetes mellitus, right foot osteomyelitis positive for MRSA s/p multiple foot surgeries in the past most recently being multiple I&D's of the right foot in December of this year. He is status post partial fifth ray resection on the right foot in December 2016. Admitted for right foot osteomyelitis. Imaging in the ER revealed osteomyelitis of the foot. He is afebrile. Hemodynamically stable. The patient is post op DAY3 of 2nd and 3rd ray osteotomies right foot. He would be going in for a re-exploration surgery today. He complains of a 10/10 pain in his foot today. He wanted a diet coke in the morning but we couselled him that it would be neccessary for him to be NPO for his surgery later in the day today. PROBLEMS 1. Right foot osteomyelitis 2. Poorly controlled insulin-dependent diabetes mellitus. 3. Hypothyroidism 4. Hypertension 5. Chronic pain syndrome (back pain) PLAN 1. RIGHT FOOT OSTEOMYELITIS -Post op Day 3, right foot 2nd/3rd ray resection -ID input appreciated. Continue Unasyn 3 g IV every 6 hours. -PICC line in place. We would perscribe the antibiotics after the final Wound C/ S report - Patient is afebrile at the moment. We will keep monitoring his temperature. -WBC count: 5.4 -Scheduled for reexploration today -We will follow up on wound culture from the surgery to narrow down his antibiotics. -ID F/U 2.POORLY CONTROLLED IDDM -Will follow Endocrine recommendations -Accuchecks, ISS -Will request the patient to follow Endocrine outpatient 3. Hypothyroidism -Continue home meds 4.HTN -Continue home meds, pain control 5.Chronic pain syndrome -Pain pathway 6.PVD -B/L LE US post procedure ordered DVT ppx IV access Full Code Disposition - TBD consistent carbohydrate 1 -Continue home meds Problem List: 1. Cellulitis 2. Diabetic foot ulcer 3. Diabetes 4. Osteomyelitis of foot Pain Ratin Pain Location: right foot Pain Goal: Pain 4 or less Pain Plan: pathway Tomorrow's Labs & Rationales: cbc and bep Royal Holland 04/30/18 1059: Attending MD Review Statement Attending Statement Attending MD Statement: examined this patient, discuss w/resident/PA/PREMIX CONCRETE BATCHER, agreed w/resident/PA/PREMIX CONCRETE BATCHER, discussed with family, reviewed EMR data (avail), discussed with nursing, discussed with case mgmt, reviewed images, amended to note Attending Assessment/Plan: Patient c/o pain in foot which better with pain meds. Pain controlled. No bleeding events. Comfortably lying in bed. Patient here with poorly controlled DM and peripheral vascular disease admitted after MRI foot noted suggestive of OM is spreading to third toe s/p surgery as per podaitry. Plan for OR today afternoon for revision +/- debridement. Pain control Managmenet of diabetes and insulin as per endocrinology. ABX as per ID, iv unasyn. Follow wound culture polymicrobial. F/u final ID recs. PICC line ?duration of abx. GI/dvt prophyalxis full code. Anticipate dc planning as per ID and podiatry.
[2018-04-30 08:00] LABS: ABSOLUTE BASOPHIL COUNT 0 /CUMM (0.0-0.2); ABSOLUTE EOSINOPHIL COUNT 0.2 /CUMM (0.0-0.7); ABSOLUTE GRANULOCYTE CT 3.1 /CUMM (1.4-6.5); ABSOLUTE LYMPH COUNT 1.8 /CUMM (1.2-3.4); ABSOLUTE MONOCYTE COUNT 0.4 /CUMM (0.10-0.60); BASOPHIL % 0.7 % (0.0-2.0); EOSINOPHIL % 3.1 % (0-5); MEAN CORPUSCULAR HGB 30.1 PG (27.0-31.0); MEAN CORPUSCULAR HGB CONC 33.9 G/DL (33.0-37.0); MEAN CORPUSCULAR VOLUME 88.9 FL (80.0-94.0); MEAN PLATELET VOLUME 9.5 FL (7.4-10.4); PLATELET COUNT 173 /CUMM (130-400); RBC DISTRIBUTION WIDTH 14.4 % (11.5-14.5); RED BLOOD CELL CT 3.93 /CUMM (4.70-6.10); WHITE BLOOD CELL COUNT 5.4 /CUMM (4.8-10.8)
[2018-04-30 08:17] LABS: PT 12.8 SEC (9.4-12.5)
--- NOTE | 2018-04-30 08:45 | PN- Diabetes ---
Assessment/Plan Diabetes Assessment: 48 yo gentleman with PMH of uncontrolled DM type 2 on insulin, severe peripheral neuropathy, diabetic retinopathym, hypothyroidism, multiple foot procedures of the right foot, was admiited to for an oozing wound on his right foot. Levemir was increased to 40 units twice a day and he is on Novolog coverage before meals and Novolog coverage at bedtime. before meals bedtime 80-150, 8 units no coverage 151-200, 10 units no coverage 201-250, 12 units no coverage 251-300, 14 units 2 units 301-350, 16 units 4 units 351-400, 18 units 6 units > 400, 20 units 8 units MRI showed acute osteomyelitis involving 2nd, 3rd metatarsal heads, 3rd toe proximal phalax and distal margin of the 3rd metatarsal shaft. Another foot procedure has been scheduled today. Currently he is kept NPO for procedure, Levemir was to 25 units twice a day last night. In addition, he was put on D5 1/2 NS at 50 ml/hour and Novolog coverage every 4 hours-- FSG < 150, no coverage, 150-200, 2 units; 201-250, 4 units; 251- 300, 6 units; 301-350, 8 units; 351-400, 10 units and > 400, 12 units. His FSGs were 128, 178, 158, 178 and 180. Plan: continue the current regimen for now; after the procedure is done and when he is ready to eat meal, please order 1. consistent carbohydrates 1 diet; 2. increase Levemir to 40 units twice a day; 3. stop IVF and Novolog coverage every 4 hours; 4. start previous Novolog coverage before meals and Novolog coverage at bedtime. monitor FSGs. will follow. Subjective Subjective: He has no special complaints. Objective Last 24 Hrs of Vital Signs/I&O Vital Signs Date Time Temp Pulse Resp B/P B/P Pulse O2 O2 Flow FiO2 Mean Ox Delivery Rate 04/30 0823 Room Air 04/30 0803 72 112/70 04/30 0651 98.9 69 20 100/60 95 / 0414 98.5 74 18 160/72 96 / 0033 98.3 72 20 98/68 96 / 0028 98.3 72 20 98/68 96 / 2147 97.9 84 16 108/64 96 Room Air 04/29 1404 97.5 77 20 100/52 97 Room Air Intake & Output 04/30 1600 04/30 0800 04/30 0000 Intake Total 520 250 Output Total Balance 520 250 Intake, IV 400 10 Intake, Oral 120 240 Findings Pertinent Lab/Pelon Results: Laboratory Tests 04/30 0615 Chemistry Sodium (137 - 145 mmol/L) 136 L Potassium (3.5 - 5.1 mmol/L) 4.0 Chloride (98 - 107 mmol/L) 102 Carbon Dioxide (22 - 30 mmol/L) 29 Anion Gap (5 - 16) 5 BUN (9 - 20 mg/dL) 12 Creatinine (0.7 - 1.2 mg/dL) 0.6 L Estimated GFR (>60 ml/min) > 60 BUN/Creatinine Ratio (7 - 25 %) 20.0 Coagulation PT (9.4 - 12.5 SEC) 12.8 H INR (0.90 - 1.17) 1.17 Hematology CBC w Diff NO MAN DIFF REQ WBC (4.8 - 10.8 /CUMM) 5.4 RBC (4.70 - 6.10 /CUMM) 3.93 L Hgb (14.0 - 18.0 G/DL) 11.9 L Hct (42 - 52 %) 35.0 L MCV (80.0 - 94.0 FL) 88.9 MCH (27.0 - 31.0 PG) 30.1 MCHC (33.0 - 37.0 G/DL) 33.9 RDW (11.5 - 14.5 %) 14.4 Plt Count (130 - 400 /CUMM) 173 MPV (7.4 - 10.4 FL) 9.5 Gran % (42.2 - 75.2 %) 57.0 Lymphocytes % (20.5 - 51.1 %) 32.4 Monocytes % (1.7 - 9.3 %) 6.8 Eosinophils % (0 - 5 %) 3.1 Basophils % (0.0 - 2.0 %) 0.7 Absolute Granulocytes (1.4 - 6.5 /CUMM) 3.1 Absolute Lymphocytes (1.2 - 3.4 /CUMM) 1.8 Absolute Monocytes (0.10 - 0.60 /CUMM) 0.4 Absolute Eosinophils (0.0 - 0.7 /CUMM) 0.2 Absolute Basophils (0.0 - 0.2 /CUMM) 0
--- NOTE | 2018-04-30 11:46 | RADIOLOGY REPORT ---
EXAMINATION: XR PORTABLE CHEST CLINICAL INFORMATION: PICC line placement COMPARISON: Chest x-ray 01/15/2018 TECHNIQUE: Portable frontal view of the chest was obtained. FINDINGS: Cardiac silhouette is normal in size. Right-sided PICC line with tip terminating at the cavoatrial junction. Lungs are well aerated. No lobar consolidation, pleural effusion or pneumothorax. Similar metallic BB projecting over the lateral left clavicle. IMPRESSION: PICC line in good position with tip terminating at the cavoatrial junction.
--- NOTE | 2018-04-30 12:39 | PN- Infect Dx ---
Subjective Subjective: Afebrile. He has minimal discomfort in the right foot. Objective Last 24 Hrs of Vital Signs/I&O Vital Signs Date Time Temp Pulse Resp B/P B/P Pulse O2 O2 Flow FiO2 Mean Ox Delivery Rate 04/30 1120 99.2 68 14 102/60 96 Room Air 04/30 0823 Room Air 04/30 0803 72 112/70 / 0651 98.9 69 20 100/60 95 08/03 0414 98.5 74 18 160/72 96 / 0033 98.3 72 20 98/68 96 / 0028 98.3 72 20 98/68 96 / 2147 97.9 84 16 108/64 96 Room Air 04/29 1404 97.5 77 20 100/52 97 Room Air Intake & Output 04/30 1600 04/30 0800 04/30 0000 Intake Total 300 520 250 Output Total Balance 300 520 250 Intake, IV 300 400 10 Intake, Oral 120 240 Physical Exam Other Physical Findings: He appears comfortable in no acute distress Extremities right foot dressing intact; PICC in place in the right upper extremity Results Last 24 Hours of Lab Results: Laboratory Tests 04/30 0615 Chemistry Sodium (137 - 145 mmol/L) 136 L Potassium (3.5 - 5.1 mmol/L) 4.0 Chloride (98 - 107 mmol/L) 102 Carbon Dioxide (22 - 30 mmol/L) 29 Anion Gap (5 - 16) 5 BUN (9 - 20 mg/dL) 12 Creatinine (0.7 - 1.2 mg/dL) 0.6 L Estimated GFR (>60 ml/min) > 60 BUN/Creatinine Ratio (7 - 25 %) 20.0 Coagulation PT (9.4 - 12.5 SEC) 12.8 H INR (0.90 - 1.17) 1.17 Hematology CBC w Diff NO MAN DIFF REQ WBC (4.8 - 10.8 /CUMM) 5.4 RBC (4.70 - 6.10 /CUMM) 3.93 L Hgb (14.0 - 18.0 G/DL) 11.9 L Hct (42 - 52 %) 35.0 L MCV (80.0 - 94.0 FL) 88.9 MCH (27.0 - 31.0 PG) 30.1 MCHC (33.0 - 37.0 G/DL) 33.9 RDW (11.5 - 14.5 %) 14.4 Plt Count (130 - 400 /CUMM) 173 MPV (7.4 - 10.4 FL) 9.5 Gran % (42.2 - 75.2 %) 57.0 Lymphocytes % (20.5 - 51.1 %) 32.4 Monocytes % (1.7 - 9.3 %) 6.8 Eosinophils % (0 - 5 %) 3.1 Basophils % (0.0 - 2.0 %) 0.7 Absolute Granulocytes (1.4 - 6.5 /CUMM) 3.1 Absolute Lymphocytes (1.2 - 3.4 /CUMM) 1.8 Absolute Monocytes (0.10 - 0.60 /CUMM) 0.4 Absolute Eosinophils (0.0 - 0.7 /CUMM) 0.2 Absolute Basophils (0.0 - 0.2 /CUMM) 0 Last 24 Hours of [place] Results: OR culture April 27 labeled right foot bone positive for Staph aureus sensitive to Oxacillin, Group B beta strep, Acinetobacter sensitive to Unasyn, Klebsiella sensitive to Unasyn, Proteus sensitive to Unasyn and possibly mixed anaerobes Assessment/Plan ID Impression: Stable, with temperatures and white blood cell count remaining normal, on Unasyn , Day 3 of treatment for polymicrobial osteomyelitis of the right foot, now 3 days status post open partial second and third ray resections, with plans for a return to the OR later today for completion of the right TMA and possible wound closure. His OR cultures are as noted above, with all of his organisms appearing to be sensitive to Unasyn, which will need to be continued for 4 weeks for residual osteomyelitis of the right foot. Suggestion: 1. Await return to the OR later today 2. Would obtain a postop baseline ESR and x-ray of the right foot after today's surgery 3. Continue Unasyn to plan on a 4 week course of antibiotics from today (until May 28) 4. Weekly ESR while on Unasyn Dr. Escobedo is covering over the weekend
--- NOTE | 2018-04-30 14:03 | Operative Report ---
Operative/Inv Procedure Report Surgery Date: 04/30/18 Name of Procedure: 1 incision and drainage deep to the deep fascia with exposure of the extensor and flexor tendon and tendon sheath multiple site right foot 2 delayed primary closure of open surgical wound with local random advancement flap 3 for second third and fourth ray resections right foot 4 intraoperative ministration of ankle excisional debridement block anesthesia 5 excisional debridement Pre-Operative Diagnosis: 1 open necrotic wound right foot 2 osteomyelitis right foot 3 diabetic peripheral neuropathy Post-Operative Diagnosis: The same Estimated Blood Loss: less than 50ml Surgeon/Geodetic Engineer: RUI BAKER DPM Anesthesia: moderate sedation, block Operative/Procedure Note Note: After obtaining informed consent the patient was brought to the operating room and placed on the operating table in supine position. The patient was then securely fastened to the operating table utilizing safety belt. After menstruation of IV sedation, 10 cc of 0.5% Marcaine plain was infiltrated about the patient's right ankle. The right foot and ankle were scrubbed, prepped and draped in the usual aseptic manner. The direct of the right foot, where a full- thickness necrotic was identified. A 15 blade was utilized sharply advise skin margins. A fishmouth type incision was then extended medially encompassing the distal first ray. Full-thickness flaps were then developed dorsally and plantarly. A sagittal bone saw was utilized to perform a through and through osteotomy of the first metatarsal which was read and passed from the operative field. The exposed stumps of the second third and fourth metatarsals were also revised proximally. The open wound was then irrigated with 3 L of normal sterile saline and 50-50 that had to bacitracin. Following this, the foot was redraped and the surgeons top pleasure change in the clinic was. Any bleeding vessels identified were cauterized or ligated as encountered. A dorsal plantar flap was then developed with undermining, mobilization and advancement of the tissue centrally. The tips of the flap was held with 3-0 Vicryl. The skin edges were approximately 3-0 nylon. The incision was dressed with Xeroform, 4 x 4's, Kerlix and Brian wrap. The patient was noted to tolerate both procedures and anesthesia well and the patient was transported from the operating room to recovery with vital signs stable and exercise intact to the dorsal and plantar flaps.
--- NOTE | 2018-05-01 05:14 | PN- Housestaff ---
Misael Duboisi 05/01/18 0514: Subjective Follow-up For: right foot osteomyelitis Subjective: Patient was seen and examined at bedside this morning. Overnight I was called by the nurse at about 23:25 she mistakenly the patient and gave him 8 units of insulin when his sugar is 149 and no insulin was due. Came up and assessed the patient. He seemed to be in a very pleasant and did not display any signs or symptoms of hypoglycemia. Vitals were stable. I gave the patient orange juice and a repeat blood sugar is 196. An hour later sugar was 207. In the morning. The patient is alert and awake and seems to be in good spirits. I counseled him to be more vigilant with his diabetic sugar control. He seemed to take it pretty well and promised that he would be more careful with his sugar and doctor 's appointments in future. His pain level was 1. He denied any fever, chills, nausea, vomiting, chest pain, shortness of breath overnight. Review of Systems Constitutional: Reports: see HPI. Objective Last 24 Hrs of Vital Signs/I&O Vital Signs Date Time Temp Pulse Resp B/P B/P Pulse O2 O2 Flow FiO2 Mean Ox Delivery Rate 05/01 0630 98.7 78 16 108/68 92 Room Air 04/30 2300 98.2 74 18 110/70 96 04/30 1458 98.1 76 14 114/68 100 Room Air 04/30 1120 99.2 68 14 102/60 96 Room Air 04/30 0823 Room Air 04/30 0803 72 112/70 Intake & Output 05/01 0800 05/01 0000 04/30 1600 Intake Total 240 600 300 Output Total Balance 240 600 300 Intake, IV 120 120 300 Intake, Oral 120 480 0 Number 1 0 Bowel Movements Physical Exam General Appearance: Alert, Oriented X3, Cooperative, No Acute Distress Neck: Supple Cardiovascular: Regular Rate, Normal S1, Normal S2 Lungs: Clear to Auscultation Neurological: sensation decreased upto ankle on the right foot Extremities: right foot s/p re-exploration surgery, dressed, minimal oozing Assessment/Plan Assessment: 47-year-old male with history of uncontrolled insulin-dependent diabetes mellitus, right foot osteomyelitis positive for MRSA s/p multiple foot surgeries in the past most recently being multiple I&D's of the right foot in December of this year. He is status post partial fifth ray resection on the right foot in December 2016. Admitted for right foot osteomyelitis. Imaging in the ER revealed osteomyelitis of the foot. He is afebrile. Hemodynamically stable. The patient is post op DAY3 of 2nd and 3rd ray osteotomies right foot and post op Day 1 of re-exploration surgery on the right foot. He is comfortable and reports pain over 1/10 with no other complaints. PROBLEMS 1. Right foot osteomyelitis 2. Poorly controlled insulin-dependent diabetes mellitus. 3. Hypothyroidism 4. Hypertension 5. Chronic pain syndrome (back pain) PLAN 1. RIGHT FOOT OSTEOMYELITIS -Post op Day 4, right foot 2nd/3rd ray resection, and post op Day 1 re- exploration -ID input appreciated. Continue Unasyn 3 g IV every 6 hours. ESR ordered -PICC line in place. We would perscribe the antibiotics after the final Wound C/ S report - Patient is afebrile at the moment. We will keep monitoring his temperature. -We will follow up on wound culture from the surgery to narrow down his antibiotics. -ID F/U 2.POORLY CONTROLLED IDDM -Will follow Endocrine recommendations -Accuchecks, ISS -Will request the patient to follow Endocrine outpatient 3. Hypothyroidism -Continue home meds 4.HTN -Continue home meds, pain control 5.Chronic pain syndrome -Pain pathway 6.PVD -B/L LE US post procedure ordered DVT ppx IV access Full Code Disposition - TBD consistent carbohydrate 1 Problem List: 1. Hyperglycemia 2. Diabetic foot infection 3. Osteomyelitis of right foot 4. Diabetic foot ulcer 5. Diabetes Pain Ratin Pain Location: right foot Pain Goal: Pain 4 or less Pain Plan: pathway Tomorrow's Labs & Rationales: cbc and bep Miquel Hollandrobbin 05/01/18 1032: Attending MD Review Statement Attending Statement Attending MD Statement: examined this patient, discuss w/resident/PA/POWER TRANSFORMER INSPECTOR, agreed w/resident/PA/POWER TRANSFORMER INSPECTOR, discussed with family, reviewed EMR data (avail), discussed with nursing, discussed with case mgmt, reviewed images, amended to note Attending Assessment/Plan: Patient medically stable for discharge. He can complete his course of 4 weeks of antibitoic iv as per ID recommendations. Follow up with podiatry and Endocrinology as outpatient in 1-2 weeks of discharge.
[2018-05-01 06:30] VITALS: BP 108/68
[2018-05-01 08:01] LABS: ABSOLUTE BASOPHIL COUNT 0 /CUMM (0.0-0.2); ABSOLUTE EOSINOPHIL COUNT 0.2 /CUMM (0.0-0.7); ABSOLUTE GRANULOCYTE CT 6.1 /CUMM (1.4-6.5); ABSOLUTE LYMPH COUNT 1.9 /CUMM (1.2-3.4); ABSOLUTE MONOCYTE COUNT 0.6 /CUMM (0.10-0.60); BASOPHIL % 0.5 % (0.0-2.0); EOSINOPHIL % 2.2 % (0-5); GRANULOCYTE % 69.2 % (42.2-75.2); HEMATOCRIT 37.1 % (42-52); MEAN CORPUSCULAR HGB 29.8 PG (27.0-31.0); MEAN CORPUSCULAR VOLUME 87.7 FL (80.0-94.0); MEAN PLATELET VOLUME 9.9 FL (7.4-10.4); PLATELET COUNT 258 /CUMM (130-400); RBC DISTRIBUTION WIDTH 14.1 % (11.5-14.5); RED BLOOD CELL CT 4.24 /CUMM (4.70-6.10)
[2018-05-01 08:53] VITALS: BP 108/68
[2018-05-01 08:54] LABS: WHITE BLOOD CELL COUNT 8.8 /CUMM (4.8-10.8)
--- NOTE | 2018-05-01 10:25 | Discharge Summary ---
Visit Information Visit Dates Admission Date: 04/22/18 Hospital Course Course Attending Physician: Royal Holland MD Allergies: Coded Allergies: No Known Allergies (12/16/16) Discharge Instructions Medications at Discharge Discharge Medications: Continue taking these medications: Pregabalin (Lyrica) 150 MG CAPSULE 1 Capsule ORAL TWICE DAILY Qty = 60 Comments: Last Taken: 05/01/18 Time: 8:54 AM Lisinopril (Prinivil) 5 MG TABLET 1 Tablet ORAL DAILY Comments: Last Taken: Time:Last Taken: 05/01/18 Time: 8:54 AM Levothyroxine Sodium (Synthroid) 100 MCG TABLET 1 Tablet ORAL DAILY Comments: Last Taken: 05/01/18 Time: 5:40 AM Oxycodone HCl/Acetaminophen (Percocet 5-325 MG Tablet) 5 MG-325 MG TABLET 1-2 Tablet ORAL EVERY SIX HOURS NEEDED as needed for PAIN Qty = 20 Comments: Last Taken: 05/01/18 Time: 1200 AM Trazodone HCl (Trazodone HCl) 50 MG TABLET 1 Tablet ORAL Every night Qty = 30 Comments: Last Taken: 05/01/18 Time: 8:25 PM Insulin Detemir (Levemir) 100 UNIT/ML VIAL 60 Units SC TWICE DAILY Comments: Last Taken:05/01/18 Time:8:54 AM Insulin Lispro (Humalog) 100 UNIT/ML VIAL 12 Units SC 3 TIMES DAILY BEFORE MEALS Comments: NO GIVEN I HOSPITAL Atorvastatin Calcium (Lipitor) 10 MG TABLET 1 Tablet ORAL DAILY Comments: Last Taken:05/01/18 Time:8:52 AM Empagliflozin (Jardiance) 25 MG TABLET 1 Tablet ORAL DAILY Comments: NOT GIVEN IN HOSPITAL Start taking the following new medications: Ampicillin Sodium/Sulbactam Na (Unasyn 3 Gm Vial) 3 GRAM VIAL 3 Gram IV Q6H Qty = 107 No Refills Instructions: Please take medicine every 6 hours until May 28, 2018. Comments: Please take medicine every 6 hours until May 28, 2018.
--- NOTE | 2018-05-01 10:36 | Patient Discharge Instructions ---
Discharge Instructions General Discharge Information You were seen/treated for: Right Foot Osteomyelitis You had these procedures: Right Foot X-Ray Watch for these problems: Watch for symptoms of increasing leg pain, swelling, redness, fevers, chills, and fatigue. Special Instructions: Please follow up with PCP within 7 days. PLEASE FOLLOW UP WITH DR BAKER (AUTOMATIC PILOT MECHANIC) ON Thursday05/05/18 [facility]. HEEL TOUCH WEIGHT BEARING STATUS ONLY FOR NOW. Please follow up with Rotary Lithographic Press Operator within 2 weeks. Weekly ESR with results copied to Dr. Baldev Mckoy Please take medications as prescribed. Diet Continue normal diet: Yes Recommended Diet: Regular Activity Full Activity/No Limits: No Activity Self Limited: Yes Acute Coronary Syndrome Inclusion Criteria At DC or during hospital stay patient has or had the following: ACS DIAGNOSIS No Discharge Core Measures Meds if any: Prescribed or Continued at Discharge Meds if any: NOT Prescribed or Continued at Discharge Congestive Heart Failure Inclusion Criteria At DC or during hospital stay patient has or had the following: CHF DIAGNOSIS No Discharge Core Measures Meds if any: Prescribed or Continued at Discharge Meds if any: NOT Prescribed or Continued at Discharge Cerebrovascular accident Inclusion Criteria At DC or during hospital stay patient has or had the following: CVA/TIA Diagnosis No Discharge Core Measures Meds if any: Prescribed or Continued at Discharge Meds if any: NOT Prescribed or Continued at Discharge Venous thromboembolism Inclusion Criteria VTE Diagnosis No VTE Type NONE VTE Confirmed by (Test) NONE Discharge Core Measures - Per Current guidelines, there needs to be overlap - treatment for the first 5 days of Warfarin therapy. - If discharged on Warfarin prior to 5 days of - overlap therapy, the patient will need to be - assessed for post discharge needs including - *Post discharge parental anticoagulation - *Warfarin and/or parental anticoagulation education - *Follow up date to check INR post discharge At least 5 days overlap therapy as Inpatient No Meds if any: Prescribed or Continued at Discharge Note: Overlap Therapy is Warfarin and Anticoagulant Meds if any: NOT Prescribed or Continued at Discharge
[2018-05-01] MEDS ORDERED: UNASYN 3 GM VIAL3 GM IV (10:43)
--- NOTE | 2018-05-01 11:39 | PN- Diabetes ---
Assessment/Plan Diabetes Assessment: 48 yo gentleman with PMH of uncontrolled DM type 2 on insulin, severe peripheral neuropathy, diabetic retinopathym, hypothyroidism, multiple foot procedures of the right foot, was admiited to for an oozing wound on his right foot. MRI showed acute osteomyelitis involving 2nd, 3rd metatarsal heads, 3rd toe proximal phalax and distal margin of the 3rd metatarsal shaft. Another foot procedure was done on 04/30/2018. As per patient, he is going home today. Currently he is on 40 units twice a day, Novolog coverage before meals and Novolog coverage at bedtime. before meals bedtime 80-150, 8 units no coverage 151-200, 10 units no coverage 201-250, 12 units no coverage 251-300, 14 units 2 units 301-350, 16 units 4 units 351-400, 18 units 6 units > 400, 20 units 8 units His FSGs were 211, 112, 149, 196, 207 and 137. Plan: continue the current insulin regimen; discharge plan for DM will be the same insulin regimen as above. patient prefers seeing his PMD for diabetes managemnet as outpatient. Subjective Subjective: He is going home today. Objective Last 24 Hrs of Vital Signs/I&O Vital Signs Date Time Temp Pulse Resp B/P B/P Pulse O2 O2 Flow FiO2 Mean Ox Delivery Rate 05/01 0853 108/68 05/01 0630 98.7 78 16 108/68 92 Room Air 04/30 2300 98.2 74 18 110/70 96 / 1458 98.1 76 14 114/68 100 Room Air Intake & Output 05/01 1600 05/01 0800 05/01 0000 Intake Total 480 600 Output Total Balance 480 600 Intake, IV 240 120 Intake, Oral 240 480 Number 1 Bowel Movements Findings Pertinent Lab/Pelon Results: Laboratory Tests 05/01 0640 Chemistry Sodium (137 - 145 mmol/L) 137 Potassium (3.5 - 5.1 mmol/L) 4.4 Chloride (98 - 107 mmol/L) 99 Carbon Dioxide (22 - 30 mmol/L) 29 Anion Gap (5 - 16) 8 BUN (9 - 20 mg/dL) 10 Creatinine (0.7 - 1.2 mg/dL) 0.6 L Estimated GFR (>60 ml/min) > 60 BUN/Creatinine Ratio (7 - 25 %) 16.7 Hematology CBC w Diff NO MAN DIFF REQ WBC (4.8 - 10.8 /CUMM) 8.8 RBC (4.70 - 6.10 /CUMM) 4.24 L Hgb (14.0 - 18.0 G/DL) 12.6 L Hct (42 - 52 %) 37.1 L MCV (80.0 - 94.0 FL) 87.7 MCH (27.0 - 31.0 PG) 29.8 MCHC (33.0 - 37.0 G/DL) 34.0 RDW (11.5 - 14.5 %) 14.1 Plt Count (130 - 400 /CUMM) 258 MPV (7.4 - 10.4 FL) 9.9 Gran % (42.2 - 75.2 %) 69.2 Lymphocytes % (20.5 - 51.1 %) 21.3 Monocytes % (1.7 - 9.3 %) 6.8 Eosinophils % (0 - 5 %) 2.2 Basophils % (0.0 - 2.0 %) 0.5 Absolute Granulocytes (1.4 - 6.5 /CUMM) 6.1 Absolute Lymphocytes (1.2 - 3.4 /CUMM) 1.9 Absolute Monocytes (0.10 - 0.60 /CUMM) 0.6 Absolute Eosinophils (0.0 - 0.7 /CUMM) 0.2 Absolute Basophils (0.0 - 0.2 /CUMM) 0 ESR Westergren (0 - 10 MM) Pending
--- NOTE | 2018-05-01 15:25 | RADIOLOGY REPORT ---
EXAMINATION: XR FOOT, RIGHT CLINICAL INFORMATION: Right foot osteomyelitis. Postop baseline x-ray. COMPARISON: MRI of the right foot 04/26/2018. TECHNIQUE: AP, lateral, and oblique views of the right foot. FINDINGS: Transmetatarsal forefoot amputation is demonstrated. Associated postsurgical soft tissue changes with foci of gas. There are a couple mineralized foci along the lateral aspect of the distal right foot, unchanged. No new fracture or dislocation. Plantar calcaneal spurring and distal Achilles enthesopathy. Diffuse vascular calcification. IMPRESSION: Postsurgical changes status post transmetatarsal forefoot amputation.
--- NOTE | 2018-05-04 13:54 | Discharge Summary ---
Visit Information Visit Dates Admission Date: 04/22/18 Discharge Date: 05/01/18 Hospital Course Course Attending Physician: Royal Holland MD Primary Care Physician: Ishmael Moore MD Consulting Request: Consulting Specialty: Podiatry Hospital Course: 47-year-old gentleman insulin-dependent diabetic with diabetic retinopathy s/p laser photocoagulation,severe peripheral neuropathy and a history of right foot osteomyelitis positive for MRSA, s/p partial amputation of the fourth and fifth rays, peripheral vascular disease status post revascularization of the right lower extremity, hypothyroidism, hypertension last admitted to [facility] in December 2017 for right foot cellulitis status post I&D, with positive MSSA cultures and beta strep group G with echo negative for vegetations, treated with IV Unasyn with PICC till February 11, 2018 was admitted to the [facility] for right foot osteomyelitis. On examianation, he had ,large ulcer on plantar surface of right foot extending from the second to fourth digits of the right foot. No purulent foul-smelling discharge noted. Dorsalis pedis bilaterally heard on Doppler. Vitals on admisison were stable Labs on admission were significant for a mild leukocytosis and an elevated blood sugar of 369 elevated CRP and high sensitivity CRP. X-ray foot shows changes of ostium myelitis of the third toe at the metatarsal phalangeal joint involving the distal third metatarsal and the proximal phalange of the third toe. 1.Right foot osteomyelitis -The patient had walked in his socks on his trip to [place] and noticed a large open wound on the plantar surface of his foot when he came back -X-ray of the foot revealed changes of osteomyelitis of the third toe at the metatarsophalangeal joint involving both the distal third metatarsal and the proximal phalange of the third toe. An MRI later revealed acute osteomyelitis of the 2nd and 3rd metatarsal heads and the 3rd toe proximal phalanx. -He was taken up by podiatry for excisional debridement and open, partial second and third ray resections right foot. The patient was started on Unasyn 3g iv Q6 hours after the blood culture showed heavy growth of KLEBSIELLA PNEUMONIAE, ACINETOBACTER BAUMANNII,PROTEUS MIRABILIS,STAPH AUREUS and BETA STREP GROUP B. -A post procedure showed Transmetatarsal forefoot amputation with postsurgical soft tissue changes with foci of gas. -A PICC line was placed and the patient was sent home on Unasyn 3g iv to complete a 4 week antibiotic course. 2. Insulin Dependant Diabetes Mellitus (poorly controlled) -The patient was managed for his diabetes in the hospital 40 units twice a day, Novolog coverage before meals and Novolog coverage at bedtime. before meals bedtime 80-150, 8 units no coverage 151-200, 10 units no coverage 201-250, 12 units no coverage 251-300, 14 units 2 units 301-350, 16 units 4 units 351-400, 18 units 6 units > 400, 20 units 8 units The patient was discharged on the same insulin regimen. -He would prefer following up with his PMD for his diabetes management The patient was continued on his home medications for hypertension, hyperlipidemia and hypothyroidism. Allergies: Coded Allergies: No Known Allergies (12/16/16) Disposition Summary Disposition Principal Diagnosis: Right foot osteomyelitis Additional Diagnosis: Poorly controlled Insulin Dependant Diabetes Mellitus Discharge Disposition: home health services Discharge Instructions General Discharge Information Code Status: Full Code Patient's Diet: Carbohydrate DIet Patient's Activity: Heel touch weight bearing till further follow up. Follow-Up Instructions/Appts: The patient would follow up with on 05/05/18 in the wound care centre. The patient would follow up with an Assistant Banquet Manager within 2 weeks Weekly ESR with results would be copied to Medications at Discharge Discharge Medications: Continue taking these medications: Pregabalin (Lyrica) 150 MG CAPSULE 1 Capsule ORAL TWICE DAILY Qty = 60 Comments: Last Taken: 05/01/18 Time: 8:54 AM Lisinopril (Prinivil) 5 MG TABLET 1 Tablet ORAL DAILY Comments: Last Taken: Time:Last Taken: 05/01/18 Time: 8:54 AM Levothyroxine Sodium (Synthroid) 100 MCG TABLET 1 Tablet ORAL DAILY Comments: Last Taken: 05/01/18 Time: 5:40 AM Oxycodone HCl/Acetaminophen (Percocet 5-325 MG Tablet) 5 MG-325 MG TABLET 1-2 Tablet ORAL EVERY SIX HOURS NEEDED as needed for PAIN Qty = 20 Comments: Last Taken: 05/01/18 Time: 1200 AM Trazodone HCl (Trazodone HCl) 50 MG TABLET 1 Tablet ORAL Every night Qty = 30 Comments: Last Taken: 05/01/18 Time: 8:25 PM Insulin Detemir (Levemir) 100 UNIT/ML VIAL 60 Units SC TWICE DAILY Comments: Last Taken:05/01/18 Time:8:54 AM Insulin Lispro (Humalog) 100 UNIT/ML VIAL 12 Units SC 3 TIMES DAILY BEFORE MEALS Comments: NO GIVEN I HOSPITAL Atorvastatin Calcium (Lipitor) 10 MG TABLET 1 Tablet ORAL DAILY Comments: Last Taken:05/01/18 Time:8:52 AM Empagliflozin (Jardiance) 25 MG TABLET 1 Tablet ORAL DAILY Comments: NOT GIVEN IN HOSPITAL Start taking the following new medications: Ampicillin Sodium/Sulbactam Na (Unasyn 3 Gm Vial) 3 GRAM VIAL 3 Gram IV Q6H Qty = 107 No Refills Instructions: Please take medicine every 6 hours until May 28, 2018. Comments: Please take medicine every 6 hours until May 28, 2018. Copies To: Teresa COLLAZO,Ishmael Simons
== END 2018-05-01 13:00 | DRG 464 ==
LOC: ERH 15:54 → ERHI 20:03 → 2NB 20:03 → ENRESERV 21:25 → ENTRNSPT 22:06 → EDTRNSPTSTS 22:22 → EDTRNSPT 22:22 → 2NB 22:26 → CMPTRNSPT 22:44 → 2NB 04-23 07:46 → ENTRNSPT 04-27 12:46 → EDTRNSPT 04-27 12:49 → EDTRNSPTSTS 04-27 12:49 → CMPTRNSPT 04-27 13:17 → ENTRNSPT 04-30 14:24 → EDTRNSPT 04-30 14:32 → EDTRNSPTSTS 04-30 14:32 → CMPTRNSPT 04-30 14:54 → 2NB 04-30 18:20 → ENPENDDIS 05-01 10:52 → ENTRNSPT 05-01 12:49 → EDTRNSPTSTS 05-01 12:55 → 2NB 05-01 13:00 → CMPTRNSPT 05-01 13:08 → DELTRNSPT 05-01 13:13
PROVIDERS: General Practice; Hospitalist; Physical Medicine & Rehabilitation; Physician Assistant; Student in an Organized Health Care Education/Training Program
PROC: 0Y6M0ZB Detachment at Right Foot, Partial 2nd Ray, Open Approach (ICD-10-PCS; principal; 2018-04-27)
PROC: 0Y6M0ZC Detachment at Right Foot, Partial 3rd Ray, Open Approach (ICD-10-PCS; 2018-04-27)
PROC: 0Y6M0Z4 Detachment at Right Foot, Complete 1st Ray, Open Approach (ICD-10-PCS; 2018-04-27)
PROC: 0JBQ0ZZ Excision of Right Foot Subcutaneous Tissue and Fascia, Open Approach (ICD-10-PCS; 2018-04-27)
PROC: 3E0T3BZ Introduction of Anesthetic Agent into Peripheral Nerves and Plexi, Percutaneous Approach (ICD-10-PCS; 2018-04-27)
PROC: 0Y6M0ZB Detachment at Right Foot, Partial 2nd Ray, Open Approach (ICD-10-PCS; 2018-04-30)
PROC: 0Y6M0ZC Detachment at Right Foot, Partial 3rd Ray, Open Approach (ICD-10-PCS; 2018-04-30)
PROC: 0Y6M0ZD Detachment at Right Foot, Partial 4th Ray, Open Approach (ICD-10-PCS; 2018-04-30)
PROC: 0JXQ0ZB Transfer Right Foot Subcutaneous Tissue and Fascia with Skin and Subcutaneous Tissue, Open Approach (ICD-10-PCS; 2018-04-30)
PROC: 0JBQ0ZZ Excision of Right Foot Subcutaneous Tissue and Fascia, Open Approach (ICD-10-PCS; 2018-04-30)
PROC: 3E0T3BZ Introduction of Anesthetic Agent into Peripheral Nerves and Plexi, Percutaneous Approach (ICD-10-PCS; 2018-04-30)
DX: M86.671 Other chronic osteomyelitis, right ankle and foot (principal); L97.419 Non-pressure chronic ulcer of right heel and midfoot with unspecified severity; L03.115 Cellulitis of right lower limb; E11.621 Type 2 diabetes mellitus with foot ulcer; E11.65 Type 2 diabetes mellitus with hyperglycemia; E11.319 Type 2 diabetes mellitus with unspecified diabetic retinopathy without macular edema; E11.42 Type 2 diabetes mellitus with diabetic polyneuropathy; Z79.4 Long term (current) use of insulin; Z79.84 Long term (current) use of oral hypoglycemic drugs; E11.69 Type 2 diabetes mellitus with other specified complication; E03.9 Hypothyroidism, unspecified; M54.9 Dorsalgia, unspecified; G89.4 Chronic pain syndrome; I73.9 Peripheral vascular disease, unspecified; I10 Essential (primary) hypertension; B96.7 Clostridium perfringens [C. perfringens] as the cause of diseases classified elsewhere; B96.4 Proteus (mirabilis) (morganii) as the cause of diseases classified elsewhere; B95.61 Methicillin susceptible Staphylococcus aureus infection as the cause of diseases classified elsewhere; B95.1 Streptococcus, group B, as the cause of diseases classified elsewhere; B96.1 Klebsiella pneumoniae [K. pneumoniae] as the cause of diseases classified elsewhere; Z89.431 Acquired absence of right foot; Z91.19 Patient's noncompliance with other medical treatment and regimen; E11.51 Type 2 diabetes mellitus with diabetic peripheral angiopathy without gangrene
CPT/HCPCS: 2NBP; 75657; 87070; 87075; 36415; 36592; 71045; 73630-RT; 82436; 87040; 87147; 93005; 93010; 93925; C1769; J1644; J1815; J2001; J7042